=== PATIENT | female | born 1940 | race Caucasian/White ===

== ENCOUNTER → 2016-12-25 | Outpatient (CLI) | payer OTHER ==
[~2016-12-25] MED LIST: CRDCD180 PO; CZR50 PO; DABI150C PO; DILT-113 PO; FRS/40 PO; GLC500 PO; INSDGIPEN SC; INSU1.2I SC; LEVO50TA6 PO; LEVO50TA60 PO; LNX125 PO; LPT40 PO; MCRB100 PO; MCRK20 PO; METF-384 PO; METO1TAB69 PO; METO2.5T PO; MGNO400 PO; NITR100C41 PO; PRAV80TA2 PO; PRD10 PO; TPRSR50 PO
--- NOTE | 2016-12-26 12:25 | MAMMOGRAPHY REPORT ---
BILATERAL DIGITAL SCREENING MAMMOGRAM WITH CAD: 12/25/2016 CLINICAL HISTORY: Routine screening. Patient has no complaints. TECHNIQUE: Bilateral CC and MLO views were obtained. Current study was also evaluated with a Compu ter Aided Detection (CAD) system. COMPARISON: Comparison is made to exams dated: 12/22/2015 mammogram, 12/21/2014 mammogram, 12/18/2013 mammogram, 11/13/2012 mammogram, 11/10/2011 mammogram, and 10/13/2010 mammogram - [facility]. BREAST COMPOSITION: There are scattered areas of fibroglandular density in both breasts. FINDINGS: There is a stable intramammary lymph node and benign coarse calcification within the right breast. Mild vascular calcification bilaterally. Benign rim calcifications within left breast. N o suspicious mass, architectural distortion or cluster of microcalcifications is seen. IMPRESSION: ACR BI-RADS CATEGORY 1: NEGATIVE There is no mammographic evidence of malignancy. A 1 year screening mammogram is recommended. The p atient will receive written notification of the results. Approximately 10% of breast cancers are not detected with mammography. A negative mammographic repor t should not delay biopsy if a clinically suggestive mass is present. Mariangel Lopez M.D. ay/:12/25/2016 16:26:49 Eye Dropper Assembler: Polly LANDEROS)(Howie)([place]), [facility] letter sent: Normal 1/2 BI-RADS Code: ACR BI-RADS Category 1: Negative
== END | disposition home or self-care (01) ==
LOC: C.MAMM 15:43
PROVIDERS: ATTEND Family Medicine
DX: Z12.31 Encounter for screening mammogram for malignant neoplasm of breast (principal)

== ENCOUNTER → 2017-01-17 | Outpatient (CLI) | payer OTHER ==
[2017-01-17 14:43] LABS: HEMATOCRIT 39.9 % (37-47); MEAN CELL VOLUME 88.1 fL (80-100); MEAN CORPUSCULAR HEMOGLOBIN 29.6 pg (25-34); MEAN CORPUSCULAR HGB CONC 33.6 g/dl (32-36); MEAN PLATELET VOLUME 10.9 fL (7.4-10.4); PLATELET COUNT 287 K/uL (130-400); RED BLOOD COUNT 4.53 M/uL (4.2-5.4); WHITE BLOOD COUNT 11.62 K/uL (4.8-10.8)
[2017-01-17 15:16] LABS: ALT/SGPT 23 U/L (12-78); AST/SGOT 14 U/L (15-37); BLOOD UREA NITROGEN 42 mg/dl (7-18); CARBON DIOXIDE 27 mmol/L (21-32); CHLORIDE 101 mmol/L (98-107); GLUCOSE 187 mg/dl (70-99); SODIUM 138 mmol/L (136-145)
== END | disposition home or self-care (01) ==
LOC: C.LAB1850 13:38
PROVIDERS: ATTEND Internal Medicine Cardiovascular Disease
DX: E78.00 Pure hypercholesterolemia, unspecified (principal); I10 Essential (primary) hypertension

== ENCOUNTER → 2017-01-29 | Outpatient (CLI) | payer OTHER ==
[~2017-01-29] MED LIST changes: +METO100T44 PO; -METO1TAB69 PO; -NITR100C41 PO; +NITR100C43 PO
[2017-01-29 12:32] LABS: ESTIMATED AVERAGE GLUCOSE 148 mg/dl; HA1C FLAG Normal (Normal)
[2017-01-29 12:33] LABS: BLOOD UREA NITROGEN 23 mg/dl (7-18); BUN/CREATININE RATIO 24.9 (10-20); CALCIUM 10.1 mg/dl (8.5-10.1); CARBON DIOXIDE 32 mmol/L (21-32); CHLORIDE 105 mmol/L (98-107); CREATININE 0.94 mg/dl (0.60-1.20); GLUCOSE 56 mg/dl (70-99); POTASSIUM 4.1 mmol/L (3.5-5.1); SODIUM 141 mmol/L (136-145)
[2017-01-29 12:37] LABS: ALKALINE PHOSPHATASE 104 U/L (45-117); ALT/SGPT 29 U/L (12-78); AST/SGOT 14 U/L (15-37); CHOLESTEROL 128 mg/dl (0-200); CHOLESTEROL/HDL RATIO 2.1; HDL CHOLESTEROL 60 mg/dl; LDL CHOLESTEROL CALCULATED 48 mg/dl; TRIGLYCERIDES 100 mg/dl (0-150); VERY LOW DENSITY LIPOPROT CALC 20 mg/dl
== END | disposition home or self-care (01) ==
LOC: C.LAB1850 10:16
PROVIDERS: ATTEND Family Medicine
DX: I11.0 Hypertensive heart disease with heart failure (principal); E78.00 Pure hypercholesterolemia, unspecified; E03.9 Hypothyroidism, unspecified; I48.91 Unspecified atrial fibrillation; E11.8 Type 2 diabetes mellitus with unspecified complications; I50.32 Chronic diastolic (congestive) heart failure

== ENCOUNTER → 2017-02-08 | Outpatient (CLI) | payer OTHER ==
[2017-02-08 15:32] LABS: BLOOD UREA NITROGEN 34 mg/dl (7-18); BUN/CREATININE RATIO 22.7 (10-20); CARBON DIOXIDE 31 mmol/L (21-32); CHLORIDE 102 mmol/L (98-107); GLUCOSE 123 mg/dl (70-99); POTASSIUM 4.7 mmol/L (3.5-5.1); SODIUM 140 mmol/L (136-145)
== END ==
LOC: C.LAB1850 13:10
PROVIDERS: ATTEND Internal Medicine Cardiovascular Disease
DX: I50.32 Chronic diastolic (congestive) heart failure (principal)

== ENCOUNTER → 2017-02-11 | Outpatient (CLI) | payer OTHER ==
[2017-02-11 12:50] LABS: BLOOD UREA NITROGEN 46 mg/dl (7-18); BUN/CREATININE RATIO 35.7 (10-20); CALCIUM 9.8 mg/dl (8.5-10.1); CARBON DIOXIDE 29 mmol/L (21-32); CHLORIDE 103 mmol/L (98-107); GLUCOSE 192 mg/dl (70-99); POTASSIUM 4.9 mmol/L (3.5-5.1); SODIUM 140 mmol/L (136-145)
== END | disposition home or self-care (01) ==
LOC: C.LAB 11:46
PROVIDERS: ATTEND Internal Medicine Cardiovascular Disease
DX: I50.32 Chronic diastolic (congestive) heart failure (principal)

== ENCOUNTER → 2017-02-12 | Outpatient (CLI) | payer OTHER ==
--- NOTE | 2017-02-12 16:49 | DIAGNOSTIC IMAGING REPORT ---
CHEST 2 VIEWS ROUTINE CLINICAL HISTORY: DYSPNEA ON EXERTION COMPARISON STUDY: 08/18/2016 FINDINGS: The heart is enlarged. There is mild central vascular congestion without evidence of overt edema. There is no focal pulmonary consolidation. There are mild atelectatic changes at the lung bases. [ IMPRESSION: 1. Mild cardiomegaly 2. Mild central vascular congestion without evidence of overt edema 3. No evidence of focal pulmonary consolidation Electronically signed by: Aj Rojo M.D. 02/12/2017 4:47 PM Dictated Date/Time: 02/12/2017 4:45 PM
== END | disposition home or self-care (01) ==
LOC: C.RAD1850 16:29
PROVIDERS: ATTEND Physician Assistant
DX: R06.09 Other forms of dyspnea (principal)

== ENCOUNTER → 2017-02-26 | Outpatient (CLI) | payer OTHER ==
[~2017-02-26] MED LIST changes: -METO2.5T PO
[2017-02-26 12:14] LABS: HEMATOCRIT 39.3 % (37-47); MEAN CELL VOLUME 90.6 fL (80-100); MEAN CORPUSCULAR HEMOGLOBIN 29.7 pg (25-34); MEAN CORPUSCULAR HGB CONC 32.8 g/dl (32-36); MEAN PLATELET VOLUME 9.8 fL (7.4-10.4); PLATELET COUNT 360 K/uL (130-400); RED BLOOD COUNT 4.34 M/uL (4.2-5.4)
[2017-02-26 12:25] LABS: INR 1.1 (0.9-1.1); PROTHROMBIN TIME (PATIENT) 12.2 SECONDS (9.0-12.0)
[2017-02-26 12:55] LABS: BLOOD UREA NITROGEN 31 mg/dl (7-18); BUN/CREATININE RATIO 27.9 (10-20); CARBON DIOXIDE 26 mmol/L (21-32); CHLORIDE 104 mmol/L (98-107); GLUCOSE 172 mg/dl (70-99); POTASSIUM 4.5 mmol/L (3.5-5.1); SODIUM 139 mmol/L (136-145)
== END | disposition home or self-care (01) ==
LOC: C.LAB1850 11:19
PROVIDERS: ATTEND Internal Medicine Cardiovascular Disease
DX: I50.32 Chronic diastolic (congestive) heart failure (principal); R94.39 Abnormal result of other cardiovascular function study

== ENCOUNTER → 2017-03-01 | Day surgery (SDC) | payer OTHER ==
[~2017-03-01] VITALS: Ht 162.6 cm; Wt 79.0 kg
[~2017-03-01] MED LIST changes: +ACETAMINOPHEN 325 MG TAB PO PRN; +ADENOSINE IV SOLN 3 MG/ML 20 ML VIAL ONE; -CRDCD180 PO; +FENTANYL CITRATE INJ 50 MCG/1 ML 2 ML VIAL ONE; -GLC500 PO; +HEPARIN SOD (PORCINE) 1000 UNIT/ML 10 ML VIAL ONE; -INSDGIPEN SC; -MCRB100 PO; +MIDAZOLAM HCL 1 MG/ML 2ML VIAL ONE; +NITROGLYCERIN/D5W 100MCG/ML 20ML SYR ONE; +NiCARDipine HCL INJ 2.5 MG/ML 10 ML AMP ONE; +ONDANSETRON INJ 2 MG/ML 2 ML VIAL IV PRN; +SODIUM CHLORIDE 0.9% 1000ML 1,000 ML IV SCH; -TPRSR50 PO
[2017-03-01 07:42] VITALS: BP 136/81; PULSE 75; TEMP 36.7; O2SAT 92; Ht 162.6 cm; Wt 79.0 kg
--- NOTE | 2017-03-01 11:30 | History & Physical Bridge Note ---
H&P Re-Evaluation Bridge Note: I have examined the patient, reviewed the History & Physical and in the interval since the performance of the History & Physical I have noted the following changes of clinical significance: No changes noted
--- NOTE | 2017-03-01 11:31 | Procedure Note ---
Pre-Mod Sedation Assessment General Date of Moderate Sedation: March 01, 2017. Vital Signs: Vital Signs Past 12 Hours Date Time Temp Pulse Resp B/P Pulse Ox O2 Delivery O2 Flow Rate FiO2 03/01/17 07:42 36.7 75 16 136/81 92 Room Air Review Cardiovascular: + irregularly irregular Abdomen: non tender, soft Lungs: lungs clear Pre-Sedation Airway Assessment Oral Cavity: Dentures Short Thick Neck: No Hx of Sleep Apnea: No Smoking Status: Never Smoker Procedure Planning Contraindications-for Mod Sed: None Yes Notes The planned sedation has been discussed with the patient and consent obtained. I have identified the patient, determined the appropriateness of sedation and have assessed the patient immediately prior to the procedure. All medicine(s) and interventions are by my order.
[2017-03-01 12:11] LABS: ISTAT ARTERIAL BLOOD GAS HCO3 24 meq/L (19-24); ISTAT ARTERIAL BLOOD GAS PCO2 40 mmHg (35-46); ISTAT ARTERIAL BLOOD GAS PO2 < 32 mmHg (80-95); ISTAT CARBON DIOXIDE 26 mEq/l (24-31)
[2017-03-01 12:11] LABS: ISTAT ARTERIAL BLOOD GAS HCO3 24 meq/L (19-24); ISTAT ARTERIAL BLOOD GAS PCO2 34 mmHg (35-46); ISTAT ARTERIAL BLOOD GAS PO2 48 mmHg (80-95); ISTAT ARTERIAL BLOOD GAS pH 7.46 (7.35-7.45); ISTAT CARBON DIOXIDE 25 mEq/l (24-31)
[2017-03-01 12:11] LABS: ISTAT ARTERIAL BLOOD GAS HCO3 25 meq/L (19-24); ISTAT ARTERIAL BLOOD GAS PCO2 40 mmHg (35-46); ISTAT ARTERIAL BLOOD GAS PO2 < 32 mmHg (80-95); ISTAT ARTERIAL BLOOD GAS pH 7.41 (7.35-7.45); ISTAT CARBON DIOXIDE 26 mEq/l (24-31)
--- NOTE | 2017-03-01 12:32 | Procedure Note ---
Post-Mod Sedation Assessment General Date of Moderate Sedation March 01, 2017. Vital Signs: Vital Signs Past 12 Hours Date Time Temp Pulse Resp B/P Pulse Ox O2 Delivery O2 Flow Rate FiO2 03/01/17 07:42 36.7 75 16 136/81 92 Room Air Review - Discharge Criteria Vital Signs Stable: Yes Alert/Oriented/Conversant: Yes Returned to Baseline Mental St: Yes Nausea Absent/Minimal: Yes Pain/Discomfort/Absent/Minimal: Yes Normal/Baseline Respirations: Yes Active Bleeding?: No
--- NOTE | 2017-03-01 12:45 | Cardiac Catheterization ---
Procedure Note Procedure Date March 01, 2017. Pre-Procedure Diagnosis Cardiomyopathy, Cardiothoracic Symptom (Dyspnea on exertion) AUC Score 7 Post-Procedure Diagnosis Moderate CAD, Elevated Intracardiac Pressures (Mild pulmonary hypertension) Procedure(s) Performed Coronary Angiography, Left Heart Cath, Right Heart Cath, LV Angiography Store Leader Dr. Turner Business Services Intern(s) Glunt Estimated Blood Loss < 25 ml Medication(s) Fentanyl, Heparin, Nicardipine, Versed, Lidocaine 1% Summary of Findings Coronary angiography: 1. Left main coronary artery: No angiographic evidence of CAD. 2. Left anterior descending: The LAD does not reach the apex. Mid LAD 20%. Large D1 proximal 20%. Very small caliber D2 and D3 without significant CAD. 3. Circumflex: The circumflex is large and codominant. Mid circumflex 20%. Very large caliber OM1 proximal 20%. OM2, posterior lateral branch, and large circumflex PDA without significant CAD. 4. Right coronary artery: The RCA is large and codominant. The mid RCA is diffusely diseased, 50-60%. RCA PDA and small posterior lateral branch without significant CAD. Left heart catheterization: 1. Left ventriculography was performed in the YOUNGER projection. Wall motion appeared normal. Low-normal LV systolic function with visualized EF 50-55%. 2. Left atrium appears significantly dilated. 3. 2+ mitral regurgitation. 4. Normal LVEDP; 10 mmHg. 5. No significant aortic stenosis. Right heart catheterization: 1. Mild pulmonary hypertension. PA pressure 43/17 with a mean of 26 mmHg. 2. Pulmonary capillary wedge pressure V-wave 27; mean 16 mmHg. 3. Right ventricular pressure 43/0 with RV EDP 7 mmHg. 4. Right atrial pressure A-wave 8; V-wave 7; mean 6 mmHg. 5. PVR 2.56 Wood units. 6. Cardiac output via thermodilution was 3.9 L/min, with a cardiac index of 2.1 L/min/m2. Sedation start: 11:35 a.m. Sedation stop: 12:10 p.m. Impression: 1. Moderate mid RCA CAD. 2. Mild nonobstructive CAD involving the LAD and circumflex systems. 3. No aortic stenosis. 4. Mitral regurgitation 2+. 4. Low normal LV systolic function visually. 5. Mild pulmonary hypertension with mildly elevated pulmonary capillary wedge pressure and prominent V wave. 6. Elevated PVR; 2.56 Wood units. Plan: 1. Medical therapy for nonobstructive CAD. FFR was considered, however, FFR was unavailable due to equipment technical difficulties. Visually, mid RCA did not appear to have severely stenotic lesions, and myocardial perfusion study did not suggest RCA territory ischemia. 2. Consider pulmonary evaluation. Hemodynamics Rest Ao: 122/50 Final Ao: 114/46 LV: 121/3/10 Recommendations Medical therapy and/or Counseling Specimens None Radiation Exposure (mGy) 1149 mGy. Fluoro time 6.1 min. 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 Holding/Recovery ACC Data Cardiac Status Clinical evaluation leading to the procedure CAD Presntation: No Sxs, no angina Anginal Classification: No symptoms Heart Failure: NYHA Class: CCS III Cardiogenic Shock w/in 24Hrs: No Cardiac Arrest w/in 24Hrs: No Imaging studies past 6 months: Yes Stress studies past 6 months: Yes Standard Exercise Stress Test: No Stress Echocardiogram: No Stress Testing w/SPECT MPI: Yes - Negative Cardiac CTA: No Coronary Anatomy Dominant: Co-dominant Left Main (% Stenosis): Normal LAD (% Stenosis): Mid (20%) D1 (% Stenosis): Proximal (20%) D2 (% Stenosis): Normal D3 (% Stenosis): Normal Circumflex (% Stenosis): Mid (20%) OM1 (% Stenosis): Proximal (20%) OM2 (% Stenosis): Normal L PL1 (% Stenosis): Normal L PDA (% Stenosis): Normal RCA (% Stenosis): Mid (long diffuse 50%) R PDA (% Stenosis): Normal R PL1 (% Stenosis): Normal Left Ventricular Angiography EF (%): 55% Wall Motion: Inferior (Normal), Apical (Normal), Anterior (Normal) Mitral Regurgitation: 2+ Diagnostic Physician's Name: Fernando Turner MD Closure Device Percutaneous Entry Location: Radial Closure Device: Radial Band Recommendations: Medical therapy and/or Counseling
--- NOTE | 2017-03-01 13:12 | Discharge Instructions ---
Discharge Instructions Date of Service March 01, 2017. Visit Reason for Visit: Cardiac catheterization to evaluate shortness of breath. Discharge Discharge Diagnosis / Problem: Non-obstructive coronary artery disease. Mild pulmonary hypertension. Discharge Goals Goal(s): Diagnostic testing Medications Restart Stopped Medication(s): Resume pradaxa tonight. Resume metformin in 2 days. Activity Recommendations Activity Limitations: per Instructions/Follow-up section Anesthesia . Post Anesthesia Instructions: If you have had General Anesthesia or IV Sedation: * Do not drive today. * Resume driving when surgeon permits. * Do not make important decisions or sign legal documents today. * Call surgeon for: 1. Temperature elevations greater than 101 degrees F. 2. Uncontrollable pain. 3. Excessive bleeding. 4. Persistent nausea and vomiting. 5. Medication intolerance (nausea, vomiting or rash). * For nausea and vomiting use only clear liquids such as: tea, soda, bouillon until nausea subsides, then gradually increase diet as tolerated. * If you have any concerns or questions, call your surgeon's office. If physician is unavailable and it is an emergency, call 911 or go to the nearest emergency room. . Instructions / Follow-Up Instructions / Follow-Up 1. Follow up with Dr. Turner as scheduled. 2. Pulmonary consultation requested. ACTIVITY RECOMMENDATIONS: Excess manipulation of the wrist should be avoided for the next 24-48 hours. * No lifting over 2 pounds (approximately a 1/2 gallon of milk) with the utilized arm for 24 hours. * No strenuous activity such as bowling or tennis for 3 days. * Keep the site of the procedure covered with a bandage for 24 hours. *You may shower the day after the procedure. Do not take a tub bath or submerge the puncture site in water for the next 3 days. *Do not operate any motorized equipment for 3 days. SPECIAL CARE INSTRUCTIONS: The site may be slightly bruised and sore following your procedure. Should any of the following occur, contact the DrSuzie who performed your procedure. 1. Redness/inflammation, swelling, chills, or fever, or colored drainage at procedure site within 3-7 days after your procedure. 2. Coldness, discoloration, ongoing numbness, severe pain, or swelling. Expect mild tingling of hand and tenderness at the puncture site for up to three days. If this persists beyond three days, or other symptoms develop, notify the Dr. who performed your procedure. BLEEDING: If the procedure site on your wrist begins to bleed, do not panic 1. Place 1 or 2 fingers firmly just slightly above the insertion site to stop the bleeding. You may be able to feel your pulse as you hold pressure. 2. Lift your finger after 5 minutes to see if the bleeding has stopped. 3. Once the bleeding has stopped, gently wipe the wrist area clean with a bandage. * If the bleeding from your wrist does not stop after 10 minutes, or if there is a large amount of bleeding or spurting, call 911 (do not drive yourself to the hospital). SKIN IRRITATION: * You may experience some redness and/or swelling in the area where radiation was administered. If any skin irritation occurs, please contact your family physician. FOLLOW UP VISIT: Keep any scheduled doctor appointments. Diet Recommendations Recommended Home Diet: low sodium, diabetes diet Procedures Procedures Performed: 1. Right and left heart catheterization with coronary angiography. Pending Studies Studies pending at discharge: no Medical Emergencies . Who to Call and When: Medical Emergencies: If at any time you feel your situation is an emergency, please call 911 immediately. . Non-Emergent Contact Non-Emergency issues call your: Primary Care Provider, Inserter Promotional Item . . "Provider Documentation" section prepared by Fernando Manzo. .
[2017-03-01 15:30] VITALS: BP 147/70; PULSE 68; O2SAT 96
== END | disposition home or self-care (01) ==
LOC: C.CATH 06:20
PROVIDERS: ATTEND Internal Medicine Cardiovascular Disease
DX: I25.10 Atherosclerotic heart disease of native coronary artery without angina pectoris (principal); I27.2 Other secondary pulmonary hypertension; I42.9 Cardiomyopathy, unspecified; I34.0 Nonrheumatic mitral (valve) insufficiency; I50.23 Acute on chronic systolic (congestive) heart failure; I48.91 Unspecified atrial fibrillation; I44.7 Left bundle-branch block, unspecified; I11.0 Hypertensive heart disease with heart failure; E11.311 Type 2 diabetes mellitus with unspecified diabetic retinopathy with macular edema; E11.42 Type 2 diabetes mellitus with diabetic polyneuropathy; E11.3299 Type 2 diabetes mellitus with mild nonproliferative diabetic retinopathy without macular edema, unspecified eye; E78.00 Pure hypercholesterolemia, unspecified; E03.9 Hypothyroidism, unspecified; I07.1 Rheumatic tricuspid insufficiency; Z79.01 Long term (current) use of anticoagulants; Z79.899 Other long term (current) drug therapy; Z79.84 Long term (current) use of oral hypoglycemic drugs

== ENCOUNTER → 2017-04-20 | Outpatient (CLI) | payer OTHER ==
[~2017-04-20] MED LIST changes: -ACETAMINOPHEN 325 MG TAB PO PRN; -ADENOSINE IV SOLN 3 MG/ML 20 ML VIAL ONE; -FENTANYL CITRATE INJ 50 MCG/1 ML 2 ML VIAL ONE; -HEPARIN SOD (PORCINE) 1000 UNIT/ML 10 ML VIAL ONE; -MIDAZOLAM HCL 1 MG/ML 2ML VIAL ONE; -NITROGLYCERIN/D5W 100MCG/ML 20ML SYR ONE; -NiCARDipine HCL INJ 2.5 MG/ML 10 ML AMP ONE; -ONDANSETRON INJ 2 MG/ML 2 ML VIAL IV PRN; -SODIUM CHLORIDE 0.9% 1000ML 1,000 ML IV SCH
[2017-04-20 12:42] LABS: BLOOD UREA NITROGEN 44 mg/dl (7-18); BUN/CREATININE RATIO 29.5 (10-20); CALCIUM 10.1 mg/dl (8.5-10.1); CARBON DIOXIDE 29 mmol/L (21-32); CHLORIDE 100 mmol/L (98-107); GLUCOSE 233 mg/dl (70-99); POTASSIUM 4.2 mmol/L (3.5-5.1); SODIUM 138 mmol/L (136-145)
[2017-04-20 12:52] LABS: FERRITIN 32.9 ng/ml (8.0-388.0)
== END | disposition home or self-care (01) ==
LOC: C.LAB1850 11:10
PROVIDERS: ATTEND Internal Medicine Cardiovascular Disease
DX: R06.02 Shortness of breath (principal); I42.9 Cardiomyopathy, unspecified; I50.32 Chronic diastolic (congestive) heart failure

== ENCOUNTER 2017-04-26 19:31 | Inpatient (IN) | payer OTHER ==
[~2017-04-26] VITALS: Ht 165.1 cm; Wt 76.9 kg
[~2017-04-26 19:31] MED LIST changes: -CZR50 PO; -LEVO50TA6 PO; -LNX125 PO; -MCRK20 PO; -METO100T44 PO; +METO1TAB69 PO; -MGNO400 PO; +NITR100C41 PO; -NITR100C43 PO; -PRAV80TA2 PO; -PRD10 PO
[2017-04-26] MEDS ORDERED: ALBUTEROL 0.083% NEBU SOLN 3 ML VIAL INH STA (19:54)
[2017-04-26] MEDS ORDERED: SODIUM CHLORIDE 0.9% 1000ML 1,000 ML IV STA (19:54)
[2017-04-26 20:21] LABS: BASO % 0.1 %; BASO ABS # 0.02 K/uL (0-0.2); COMPLETE YES; EOS % 0.1 %; IG% 0.5 %; LYMPH ABS # 1.16 K/uL (1.2-3.4); MEAN CORPUSCULAR HEMOGLOBIN 30.4 pg (25-34); MEAN CORPUSCULAR HGB CONC 34.2 g/dl (32-36); MONO % 3.8 %; NEUT % 88.5 %; PLATELET COUNT 249 K/uL (130-400); RED BLOOD COUNT 4.27 M/uL (4.2-5.4); WHITE BLOOD COUNT 16.49 K/uL (4.8-10.8)
[2017-04-26 20:26] LABS: ISTAT HEMOGLOBIN 13.6 g/dl (12.0-16.0); ISTAT IONIZED CALCIUM 1.29 mmol/l (1.12-1.32)
[2017-04-26] MEDS ORDERED: PRAV80TA2 PO (20:29)
[2017-04-26] MEDS ORDERED: CZR50 PO (20:29)
[2017-04-26] MEDS ORDERED: LEVO50TA6 PO (20:29)
[2017-04-26] MEDS ORDERED: OPTIRAY 320 IV PRN (20:30)
--- NOTE | 2017-04-26 20:30 | DIAGNOSTIC IMAGING REPORT ---
CHEST ONE VIEW PORTABLE CLINICAL HISTORY: Dyspnea. Respiratory distress. COMPARISON STUDY: Chest radiograph February 12, 2017. FINDINGS: There is no pneumothorax. No pleural effusion is identified. Lung volumes are diminished. There has been interval development of bilateral perihilar opacities with diffuse interstitial thickening. A right suprahilar opacity is noted. 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 IMPRESSION: Interval development of bilateral perihilar opacities and interstitial thickening highly suggestive of pulmonary edema. Pneumonia could appear similar although is considered less likely. Possible right pleural effusion. Electronically signed by: Rick King M.D. 04/26/2017 8:29 PM Dictated Date/Time: 04/26/2017 8:27 PM
[2017-04-26 20:32] LABS: INR 1.2 (0.9-1.1); PARTIAL THROMBOPLASTIN RATIO 1.6; PROTHROMBIN TIME (PATIENT) 13.1 SECONDS (9.0-12.0)
[2017-04-26 20:37] LABS: VEN BLD GAS O2 SATURATION 65.3 %; VEN BLOOD GAS BASE EXCESS 0.9 mmol/L
[2017-04-26 20:39] LABS: ALT/SGPT 21 U/L (12-78); BLOOD UREA NITROGEN 24 mg/dl (7-18); CALCIUM 10.6 mg/dl (8.5-10.1); CARBON DIOXIDE 24 mmol/L (21-32); CHLORIDE 102 mmol/L (98-107); GLUCOSE 195 mg/dl (70-99); SODIUM 136 mmol/L (136-145)
[2017-04-26 20:44] LABS: ALB/GLOB RATIO 0.8 (0.9-2); ALKALINE PHOSPHATASE 106 U/L (45-117); AST/SGOT 11 U/L (15-37)
[2017-04-26 21:00] VITALS: PULSE 117; O2SAT 95
--- NOTE | 2017-04-26 21:07 | DIAGNOSTIC IMAGING REPORT ---
CT ANGIOGRAPHY OF THE CHEST, PULMONARY EMBOLUS PROTOCOL CLINICAL HISTORY: Respiratory distress. Dyspnea. COMPARISON STUDY: Chest radiographs February 12, 2017 and April 26, 2017. TECHNIQUE: Following IV administration of 93 mL of Optiray-320, helical axial images of the chest were obtained utilizing the pulmonary embolus protocol. Maximal intensity projections and sagittal and coronal reformats were viewed on an independent 3D workstation. IV contrast was administered without complication. CT DOSE: 366.72 mGy.cm FINDINGS: No pulmonary emboli are identified although the segmental and subsegmental pulmonary arteries are suboptimally assessed due to respiratory motion. The heart is moderately enlarged. There is no pericardial effusion. An AP window lymph node measures approximately 1.3 cm in short axis diameter. A precarinal lymph node measures approximately 2.4 cm in short axis diameter. There are trace bilateral pleural effusion. There is no pneumothorax. Diffuse interlobular septal thickening is noted with multifocal bilateral airspace opacities, including a 4.9 cm focus of consolidation within the right upper lobe. There is left lower lobe consolidation as well. Lungs are suboptimally assessed due to respiratory motion. No central obstructing mass is identified. Bony thorax and upper abdomen are unremarkable with exception of reflux of contrast into the IVC and hepatic veins. Spleen is top normal for size. There is moderate atherosclerotic calcification. IMPRESSION: 1. No pulmonary emboli identified although segmental and subsegmental pulmonary arteries are suboptimally assessed due to respiratory motion. 2. Diffuse interlobular septal thickening consistent with interstitial pulmonary edema. Multifocal bilateral airspace opacities, including a 4.9 cm focus of right upper lobe consolidation which could reflect superimposed pneumonia or alveolar edema. A chest CT in one month to ensure resolution is recommended. 3. Mild to moderate mediastinal and hilar lymphadenopathy which is nonspecific although may be reactive. This can be assessed on follow-up chest CT. 4. Trace bilateral pleural effusions. 5. Moderate cardiomegaly with reflux of contrast into the IVC and hepatic veins which could indicate right heart dysfunction. Electronically signed by: Rick King M.D. 04/26/2017 9:06 PM Dictated Date/Time: 04/26/2017 8:55 PM
[2017-04-26] MEDS ORDERED: GLUCAGON FOR INJ 1 MG VIAL SQ PRN (22:45)
[2017-04-26] MEDS ORDERED: ONDANSETRON INJ 2 MG/ML 2 ML VIAL IV PRN (22:45)
[2017-04-26] MEDS ORDERED: NITROGLYCERIN 0.4 MG SL PER TAB CHARGE SL PRN (22:45)
[2017-04-26] MEDS ORDERED: GLUCOSE 40% GEL 15 GM TUBE PO PRN (22:45)
[2017-04-26] MEDS ORDERED: GLUCOSE 10 TABS/TUBE PO PRN (22:45)
[2017-04-26] MEDS ORDERED: DEXTROSE 50% 50 ML SYR IV PRN (22:45)
[2017-04-26] MEDS ORDERED: VANCOMYCIN CONSULT ACTIVE PRN (23:30)
[2017-04-26] MEDS ORDERED: VANCOMYCIN INJ 2,050 MG in SODIUM CHLORIDE 0.9% 500ML 500 ML IV SCH (23:45)
--- NOTE | 2017-04-26 23:45 | EMERGENCY ROOM VISIT NOTE ---
History Report prepared by Josh: Alison Mccann Under the Supervision of: Dr. Familia Polanco D.O. First contact with patient: 19:42 Chief Complaint: RESPIRATORY PROBLEMS Stated Complaint: CANT BREATHE History of Present Illness The patient is a 76 year old female who presents to the Emergency Room with complaints of constant respiratory problems beginning last night. The patient states that she has a history of pneumonia and her symptoms today feel similar to her previous pneumonia. She reports that last night she began to feel short of breath and developed a non-productive cough. She complains of diarrhea today , difficulty sleeping last night, and wheezing. She denies any chest pain, nausea, vomiting, new leg swelling, history of asthma, COPD, cancer, blood clots. The patient notes that she is on Pradaxa and has a history of atrial fibrillation. Source of History: patient Onset: last night Position: other (respiratory) Quality: other (SOB) Timing: constant Associated Symptoms: + cough, + SOB, + diarrhea, No chest pain, No nausea, No vomiting Note: Patient complains of wheezing. She denies any new leg swelling. Review of Systems See HPI for pertinent positives & negatives. A total of 10 systems reviewed and were otherwise negative. Past Medical & Surgical Medical Problems: (1) Acute respiratory failure with hypoxia (2) Afib (3) Allergic reaction (4) Allergic reaction (5) Atrial fibrillation (6) blood clot in eye (7) Chronic anticoagulation (8) Diabetes (9) Digoxin toxicity (10) Dyslipidemia (11) Heart disease (12) HTN (hypertension) (13) Hypothyroidism (14) Kidney stones (15) Rash (16) Rash Surgical Problems: (1) History of appendectomy (2) History of cholecystectomy (3) History of hysterectomy Family History Cancer Diabetes mellitus Gallbladder disease Heart disease Hypertension Kidney disease Kidney stones Lung disease Social History Smoking Status: Never Smoker Alcohol Use: none Marital Status: Housing Status: lives with significant other Occupation Status: retired Current/Historical Medications Scheduled Dabigatran Etexilate Mesylate (Pradaxa), 150 MG PO BID Diltiazem Hcl Ext Rel (Tiazac), 180 MG PO BID Furosemide (Lasix), 40 MG PO DAILY Insulin Glargine (Toujeo Solostar), 32 UNITS SC BID Levothyroxine Sodium (Levothyroxine Sodium), 50 MCG PO DAILYBB Losartan Potassium (Losartan Potassium), 50 MG PO BID Metformin Hcl (Glucophage), 1,000 MG PO BID Metoprolol Succ (Toprol Xl) (Toprol-Xl ), 100 MG PO BID Nitrofurantoin Macrocrystal (Nitrofurantoin), 1 TAB PO BID Pravastatin Sodium (Pravastatin Sodium), 80 MG PO HS Allergies Coded Allergies: Penicillins (Verified Allergy, Severe, RASH,SWELLING, 01/08/14) Physical Exam Vital Signs Date Time Temp Pulse Resp B/P (MAP) Pulse Ox O2 Delivery O2 Flow Rate FiO2 04/26/17 22:32 101 18 137/84 96 BiPAP 60 04/26/17 21:00 117 95 60 04/26/17 20:50 109 20 139/91 90 Non-Rebreather 10.0 04/26/17 20:27 115 22 93 Nebulizer 04/26/17 20:00 91 Non-Rebreather 15.0 04/26/17 19:51 72 Room Air 04/26/17 19:51 72 Room Air 04/26/17 19:43 105 04/26/17 19:33 37.2 121 24 130/73 74 Room Air Physical Exam GENERAL: sitting up in bed, ill appearing, mild distress, on nasal cannula EYE EXAM: normal conjunctiva OROPHARYNX: no exudate, no erythema, lips, buccal mucosa, and tongue normal and mucous membranes are moist NECK: supple, no nuchal rigidity, no adenopathy, non-tender LUNGS: Crackles at bilateral bases. Normal chest wall mechanics HEART: tachycardic, no murmurs, S1 normal and S2 normal ABDOMEN: abdomen soft, non-tender, normo-active bowel sounds, no masses, no rebound or guarding. BACK: Back is symmetrical on inspection and there is no deformity, no midline tenderness, no CVA tenderness. SKIN: no rashes and no bruising UPPER EXTREMITIES: upper extremities are grossly normal. LOWER EXTREMITIES: Bilateral pitting edema. NEURO EXAM: Normal sensorium, cranial nerves II-XII grossly intact, normal speech, no gross weakness of arms, no gross weakness of legs. Medical Decision & Procedures ER Provider Diagnostic Interpretation: Radiology results as stated below per my review and the radiologist's interpretation: CT ANGIOGRAPHY OF THE CHEST, PULMONARY EMBOLUS PROTOCOL FINDINGS: No pulmonary emboli are identified although the segmental and subsegmental pulmonary arteries are suboptimally assessed due to respiratory motion. The heart is moderately enlarged. There is no pericardial effusion. An AP window lymph node measures approximately 1.3 cm in short axis diameter. A precarinal lymph node measures approximately 2.4 cm in short axis diameter. There are trace bilateral pleural effusion. There is no pneumothorax. Diffuse interlobular septal thickening is noted with multifocal bilateral airspace opacities, including a 4.9 cm focus of consolidation within the right upper lobe. There is left lower lobe consolidation as well. Lungs are suboptimally assessed due to respiratory motion. No central obstructing mass is identified. Bony thorax and upper abdomen are unremarkable with exception of reflux of contrast into the IVC and hepatic veins. Spleen is top normal for size. There is moderate atherosclerotic calcification. IMPRESSION: 1. No pulmonary emboli identified although segmental and subsegmental pulmonary arteries are suboptimally assessed due to respiratory motion. 2. Diffuse interlobular septal thickening consistent with interstitial pulmonary edema. Multifocal bilateral airspace opacities, including a 4.9 cm focus of right upper lobe consolidation which could reflect superimposed pneumonia or alveolar edema. A chest CT in one month to ensure resolution is recommended. 3. Mild to moderate mediastinal and hilar lymphadenopathy which is nonspecific although may be reactive. This can be assessed on follow-up chest CT. 4. Trace bilateral pleural effusions. 5. Moderate cardiomegaly with reflux of contrast into the IVC and hepatic veins which could indicate right heart dysfunction. Electronically signed by: Rick King M.D. 04/26/2017 9:06 PM Dictated Date/Time: 04/26/2017 8:55 PM CHEST ONE VIEW PORTABLE FINDINGS: There is no pneumothorax. No pleural effusion is identified. Lung volumes are diminished. There has been interval development of bilateral perihilar opacities with diffuse interstitial thickening. A right suprahilar opacity is noted. 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 IMPRESSION: Interval development of bilateral perihilar opacities and interstitial thickening highly suggestive of pulmonary edema. Pneumonia could appear similar although is considered less likely. Possible right pleural effusion. Electronically signed by: Rick King M.D. 04/26/2017 8:29 PM Dictated Date/Time: 04/26/2017 8:27 PM Laboratory Results 04/26/17 20:00 Red Blood Count 4.27, Mean Corpuscular Volume 89.0, Mean Corpuscular Hemoglobin 30.4, Mean Corpuscular Hemoglobin Concent 34.2, Mean Platelet Volume 11.0, Neutrophils (%) (Auto) 88.5, Lymphocytes (%) (Auto) 7.0, Monocytes (%) (Auto) 3.8, Eosinophils (%) (Auto) 0.1, Basophils (%) (Auto) 0.1, Neutrophils # (Auto) 14.59, Lymphocytes # (Auto) 1.16, Monocytes # (Auto) 0.63, Eosinophils # (Auto) 0.01, Basophils # (Auto) 0.02 04/26/17 20:00 Test 04/26/17 20:00 04/26/17 20:14 04/26/17 20:17 White Blood Count 16.49 K/uL (4.8-10.8) Red Blood Count 4.27 M/uL (4.2-5.4) Hemoglobin 13.0 g/dL (12.0-16.0) Hematocrit 38.0 % (37-47) Mean Corpuscular Volume 89.0 fL (80-100) Mean Corpuscular Hemoglobin 30.4 pg (25-34) Mean Corpuscular Hemoglobin Concent 34.2 g/dl (32-36) Platelet Count 249 K/uL (130-400) Mean Platelet Volume 11.0 fL (7.4-10.4) Neutrophils (%) (Auto) 88.5 % Lymphocytes (%) (Auto) 7.0 % Monocytes (%) (Auto) 3.8 % Eosinophils (%) (Auto) 0.1 % Basophils (%) (Auto) 0.1 % Neutrophils # (Auto) 14.59 K/uL (1.4-6.5) Lymphocytes # (Auto) 1.16 K/uL (1.2-3.4) Monocytes # (Auto) 0.63 K/uL (0.11-0.59) Eosinophils # (Auto) 0.01 K/uL (0-0.5) Basophils # (Auto) 0.02 K/uL (0-0.2) RDW Standard Deviation 47.7 fL (36.4-46.3) RDW Coefficient of Variation 14.6 % (11.5-14.5) Immature Granulocyte % (Auto) 0.5 % Immature Granulocyte # (Auto) 0.08 K/uL (0.00-0.02) Prothrombin Time 13.1 SECONDS (9.0-12.0) Prothromb Time International Ratio 1.2 (0.9-1.1) Activated Partial Thromboplast Time 41.7 SECONDS (21.0-31.0) Partial Thromboplastin Ratio 1.6 Est Creatinine Clear Calc Drug Dose 43.9 ml/min Estimated GFR () 56.1 Estimated GFR (Non- 48.4 BUN/Creatinine Ratio 22.0 (10-20) Calcium Level 10.6 mg/dl (8.5-10.1) Total Bilirubin 1.1 mg/dl (0.2-1) Aspartate Amino Transf (AST/SGOT) 11 U/L (15-37) Alanine Aminotransferase (ALT/SGPT) 21 U/L (12-78) Alkaline Phosphatase 106 U/L (45-117) Troponin I < 0.015 ng/ml (0-0.045) Pro-B-Type Natriuretic Peptide 4873 pg/ml (0-1800) Total Protein 7.9 gm/dl (6.4-8.2) Albumin 3.5 gm/dl (3.4-5.0) Globulin 4.4 gm/dl (2.5-4.0) Albumin/Globulin Ratio 0.8 (0.9-2) Bedside Hemoglobin 13.6 g/dl (12.0-16.0) Bedside Hematocrit 40 % (37-47) Bedside Sodium 137 mEq/L (135-144) Bedside Potassium 4.1 mEq/L (3.3-5.0) Bedside Chloride 102 mEq/L (101-112) Bedside Total CO2 25 mEq/l (24-31) Anion Gap 15.0 mmol/L (16-25) Bedside Blood Urea Nitrogen 24 mg/dl (7-18) Bedside Creatinine 1.0 mg/dl (0.6-1.3) Bedside Glucose (other) 207 mg/dl (70-99) Bedside Ionized Calcium (Nash) 1.29 mmol/l (1.12-1.32) Venous Blood pH 7.47 (7.36-7.41) Venous Blood Partial Pressure CO2 34 mmHg (38.0-50.0) Venous Blood Partial Pressure O2 32 mmHg Venous Blood HCO3 24 mmol/L Venous Blood Oxygen Saturation 65.3 % Venous Blood Base Excess 0.9 mmol/L Laboratory results per my review. Medications Administered Medications (Trade) Dose Ordered Sig/Paul Route Start Time Stop Time Status Last Admin Dose Admin Sodium Chloride 1,000 ml @ 999 mls/hr Q1H1M STAT IV 04/26/17 19:54 04/26/17 20:54 DC 04/26/17 19:54 999 MLS/HR Albuterol Sulfate (Ventolin 0.083% 2.5MG/3ML Neb) 2.5 mg NOW STAT INH 04/26/17 19:54 04/26/17 19:55 DC 04/26/17 20:09 2.5 MG ECG Indication: SOB/dyspnea Rate (beats per minute): 111 Rhythm: atrial fibrillation (RVR) Findings: PVC, left axis deviation ED Course ED COURSE: Vital signs were reviewed and showed hypoxia and tachycardia The patients medical record was reviewed The above diagnostic studies were performed and reviewed. ED treatments and interventions as stated above. 1941: The patient was evaluated in room A9. A complete history and physical examination was performed. 1953: Albuterol Sulfate 2.5mg INH, Sodium Chloride 1000 ml @ 999 mls/hr IV. 2033: I reviewed the patient's case with Dr. King. He agrees with the patient's treatment plan. 2144: I reviewed the patient's case with Dr. Cross of [facility]. He will evaluate the patient for further management. 2158: Upon reevaluation, the patient is doing well.I discussed my findings with the patient and she understands and agrees with the treatment plan. Based on the patients age, coexisting illnesses, exam and lab findings the decision to treat as an inpatient was made. The patient remained stable while under my care. The patient will be evaluated for further management. Medical Decision Differential diagnoses includes but is not limited to pneumonia, bronchitis, COPD/Asthma exacerbation, pneumothorax, pulmonary embolism, congestive heart failure, acute coronary syndrome Medication Reconciliation: I attest that I have personally reviewed the patient' s current medication list. Blood pressure screening: Patient was found to have normal blood pressure on screening and does not require follow-up. Patient is a 76-year-old female who presents the ER in respiratory distress short of breath. Upon presentation pulse ox is 70% on room air. Patient was placed on nonrebreather pulse ox improved to 88-90%. No history of COPD or asthma. Labs were obtained and chest x-ray showed extensive pulmonary edema. Patient was placed on BiPAP. Patient's symptoms improved markedly. She notes she felt significantly better. Labs remarkable for white count of 16,000, BMP was elevated at 5000, and VBG was fairly unremarkable. EKG was nondiagnostic for STEMI. Patient remained comfortable on BiPAP and was minutes internal medicine with pulmonary edema and hypoxia. Consults Time Called: 2029 Consulting Physician: Dr. King Returned Call: 2033 I reviewed the patient's case with Dr. King. He agrees with the patient's treatment plan. Additional Consults: Time Called: 2139 Consulted Physician: Dr. Burdick - [facility] Returned Call: 2144 Additional Comments: I reviewed the patient's case with Dr. Cross of [facility]. He will evaluate the patient for further management. Impression Primary Impression: Acute respiratory failure with hypoxia Additional Impression: Pulmonary edema Critical Care I have personally spent 75 minutes of critical care time in the direct management of this patient. This includes bedside care, interpretation of diagnostic studies, and testing, discussion with consultants, patient, and family members, and other required patient management activities. This 75 minutes is in excess of all separately billable procedures. Scribe Attestation The scribe's documentation has been prepared under my direction and personally reviewed by me in its entirety. I confirm that the note above accurately reflects all work, treatment, procedures, and medical decision making performed by me. Departure Information Dispostion Being Evaluated By Hospitalist Referrals Barbara Guerrero C.R.N.P. (PCP) Patient Instructions My [facility] Problem Qualifiers Additional Impression: Pulmonary edema Chronicity: acute Qualified Codes: J81.0 - Acute pulmonary edema
[2017-04-26 23:49] VITALS: BP 147/69; PULSE 107; TEMP 37.4; O2SAT 92; BMI 29.3
--- NOTE | 2017-04-26 23:54 | History and Physical ---
History & Physical Date & Time of Service: Apr 26, 2017 at 23:53 Chief Complaint: Acute Respiratory Failure With Hypoxia Primary Care Physician: Barbara Guerrero C.R.N.P. History of Present Illness Source: patient The patient is a 76-year-old female who presents to the emergency department with worsening shortness of breath, cough and wheezing over the past 24 hours. She does have a history of pneumonia. She has not had any recent travels or sick exposures. She has not tried any OTC medications for relief. Past Medical/Surgical History Medical Problems: (1) Allergic reaction Status: Resolved (2) Allergic reaction Status: Resolved (3) Atrial fibrillation Status: Chronic (4) blood clot in eye Status: Resolved (5) Chronic anticoagulation Status: Chronic (6) Diabetes Status: Chronic (7) Dyslipidemia Status: Chronic (8) Heart disease Status: Chronic (9) HTN (hypertension) Status: Chronic (10) Hypothyroidism Status: Chronic (11) Kidney stones Status: Resolved (12) Rash Status: Resolved (13) Rash Status: Resolved Surgical Problems: (1) History of appendectomy Status: Resolved (2) History of cholecystectomy Status: Resolved (3) History of hysterectomy Status: Resolved Family History Cancer Diabetes mellitus Gallbladder disease Heart disease Hypertension Kidney disease Kidney stones Lung disease Social History Smoking Status: Never Smoker Smokeless Tobacco Use: No Alcohol Use: none Drug Use: none Marital Status: Housing status: lives with family Occupational Status: retired Immunizations History of Influenza Vaccine: Yes History of Tetanus Vaccine?: No History of Pneumococcal: No History of Hepatitis B Vaccine: No Multi-Drug Resistant Organisms History of MDRO: No Allergies Coded Allergies: Penicillins (Verified Allergy, Severe, RASH,SWELLING, 01/08/14) Home Medications Scheduled Dabigatran Etexilate Mesylate (Pradaxa), 150 MG PO BID Diltiazem Hcl Ext Rel (Tiazac), 180 MG PO BID Furosemide (Lasix), 40 MG PO DAILY Insulin Glargine (Toujeo Solostar), 32 UNITS SC BID Levothyroxine Sodium (Levothyroxine Sodium), 50 MCG PO DAILYBB Losartan Potassium (Losartan Potassium), 50 MG PO BID Metformin Hcl (Glucophage), 1,000 MG PO BID Metoprolol Succ (Toprol Xl) (Toprol-Xl ), 100 MG PO BID Nitrofurantoin Macrocrystal (Nitrofurantoin), 1 TAB PO BID Pravastatin Sodium (Pravastatin Sodium), 80 MG PO HS Review of Systems The patient denies chest pain, palpitations, lower extremity swelling, sore throat, fevers, chills, sweats, weight change, fatigue, nausea, vomiting, abdominal pain, pelvic pain, blood in urine or stool, dysuria, urinary frequency or urgency, lightheadedness, dizziness, headache, memory loss, rash, abnormal bruising or bleeding, imbalance, focal or generalized weakness, numbness or tingling in arms or legs, arthralgias or myalgias, back or neck pain , night sweats. The review of systems is otherwise negative other than for that already noted above, and at least 10 systems have been reviewed. Physical Exam Vital Signs Date Time Temp Pulse Resp B/P (MAP) Pulse Ox O2 Delivery O2 Flow Rate FiO2 04/26/17 23:20 105 20 137/84 95 04/26/17 22:32 101 18 137/84 96 BiPAP 60 04/26/17 21:00 117 95 60 04/26/17 20:50 109 20 139/91 90 Non-Rebreather 10.0 04/26/17 20:27 115 22 93 Nebulizer 04/26/17 20:00 91 Non-Rebreather 15.0 04/26/17 19:51 72 Room Air 04/26/17 19:51 72 Room Air 04/26/17 19:43 105 04/26/17 19:33 37.2 121 24 130/73 74 Room Air The patient is awake, alert and oriented 3, normocephalic and atraumatic, has a BiPAP mask on, lying in bed and in mild respiratory distress. HEENT--PERRL, EOMI, mucous membranes and oropharynx dry. Neck--supple, no JVD or bruits, thyroid normal, trachea midline, no adenopathy. Heart--normal S1 and S2, no extra beats, no murmurs, rubs or gallops. Lungs--coarse breath sounds bilaterally, mild respiratory distress, no accessory muscle use. Abdomen--normal bowel sounds and soft, nontender and nondistended, no hernias or masses, no organomegaly. Extremities--no cyanosis, clubbing or edema. There are good distal pulses b/l. Dermatologic--normal skin turgor, normal color, warm and dry, no abnormal lymph nodes, no rash. Neurologic--cranial nerves II through XII grossly intact, motor and sensory examination normal. Rheumatologic--normal range of motion, nontender, muscles and joints. Psychiatric--normal affect. Diagnostics Laboratory Results Results Past 24 Hours Test 04/26/17 20:00 04/26/17 20:14 04/26/17 20:17 Range/Units White Blood Count 16.49 4.8-10.8 K/uL Red Blood Count 4.27 4.2-5.4 M/uL Hemoglobin 13.0 12.0-16.0 g/dL Hematocrit 38.0 37-47 % Mean Corpuscular Volume 89.0 80-100 fL Mean Corpuscular Hemoglobin 30.4 25-34 pg Mean Corpuscular Hemoglobin Concent 34.2 32-36 g/dl Platelet Count 249 130-400 K/uL Mean Platelet Volume 11.0 7.4-10.4 fL Neutrophils (%) (Auto) 88.5 % Lymphocytes (%) (Auto) 7.0 % Monocytes (%) (Auto) 3.8 % Eosinophils (%) (Auto) 0.1 % Basophils (%) (Auto) 0.1 % Neutrophils # (Auto) 14.59 1.4-6.5 K/uL Lymphocytes # (Auto) 1.16 1.2-3.4 K/uL Monocytes # (Auto) 0.63 0.11-0.59 K/uL Eosinophils # (Auto) 0.01 0-0.5 K/uL Basophils # (Auto) 0.02 0-0.2 K/uL RDW Standard Deviation 47.7 36.4-46.3 fL RDW Coefficient of Variation 14.6 11.5-14.5 % Immature Granulocyte % (Auto) 0.5 % Immature Granulocyte # (Auto) 0.08 0.00-0.02 K/uL Prothrombin Time 13.1 9.0-12.0 SECONDS Prothromb Time International Ratio 1.2 0.9-1.1 Activated Partial Thromboplast Time 41.7 21.0-31.0 SECONDS Partial Thromboplastin Ratio 1.6 Sodium Level 136 136-145 mmol/L Potassium Level 4.0 3.5-5.1 mmol/L Chloride Level 102 98-107 mmol/L Carbon Dioxide Level 24 21-32 mmol/L Anion Gap 10.0 15.0 16-25 mmol/L Blood Urea Nitrogen 24 7-18 mg/dl Creatinine 1.10 0.60-1.20 mg/dl Est Creatinine Clear Calc Drug Dose 43.9 ml/min Estimated GFR () 56.1 Estimated GFR (Non- 48.4 BUN/Creatinine Ratio 22.0 10-20 Random Glucose 195 70-99 mg/dl Calcium Level 10.6 8.5-10.1 mg/dl Total Bilirubin 1.1 0.2-1 mg/dl Aspartate Amino Transf (AST/SGOT) 11 15-37 U/L Alanine Aminotransferase (ALT/SGPT) 21 12-78 U/L Alkaline Phosphatase 106 45-117 U/L Troponin I < 0.015 0-0.045 ng/ml Pro-B-Type Natriuretic Peptide 4873 0-1800 pg/ml Total Protein 7.9 6.4-8.2 gm/dl Albumin 3.5 3.4-5.0 gm/dl Globulin 4.4 2.5-4.0 gm/dl Albumin/Globulin Ratio 0.8 0.9-2 Bedside Hemoglobin 13.6 12.0-16.0 g/dl Bedside Hematocrit 40 37-47 % Bedside Sodium 137 135-144 mEq/L Bedside Potassium 4.1 3.3-5.0 mEq/L Bedside Chloride 102 101-112 mEq/L Bedside Total CO2 25 24-31 mEq/l Bedside Blood Urea Nitrogen 24 7-18 mg/dl Bedside Creatinine 1.0 0.6-1.3 mg/dl Bedside Glucose (other) 207 70-99 mg/dl Bedside Ionized Calcium (Nash) 1.29 1.12-1.32 mmol/l Venous Blood pH 7.47 7.36-7.41 Venous Blood Partial Pressure CO2 34 38.0-50.0 mmHg Venous Blood Partial Pressure O2 32 mmHg Venous Blood HCO3 24 mmol/L Venous Blood Oxygen Saturation 65.3 % Venous Blood Base Excess 0.9 mmol/L Diagnostic Radiology Patient Name: PARADISE MARMOLEJO Unit Number: [id number] Dictated: 04/26/172054 Transcribed: 04/26/172054 JA Printed Date/Time: [~ rep prt dt]/[~ rep prt tm] [~ rep ct labl] - [~ rep ct ivnm] [facility] [place] [address] Dictated: 04/26/172054 Transcribed: 04/26/172054 JA Printed Date/Time: [~ rep prt dt]/[~ rep prt tm] [~ rep ct labl] - [~ rep ct ivnm] CT ANGIOGRAPHY OF THE CHEST, PULMONARY EMBOLUS PROTOCOL CLINICAL HISTORY: Respiratory distress. Dyspnea. COMPARISON STUDY: Chest radiographs February 12, 2017 and April 26, 2017. TECHNIQUE: Following IV administration of 93 mL of Optiray-320, helical axial images of the chest were obtained utilizing the pulmonary embolus protocol. Maximal intensity projections and sagittal and coronal reformats were viewed on an independent 3D workstation. IV contrast was administered without complication. CT DOSE: 366.72 mGy.cm FINDINGS: No pulmonary emboli are identified although the segmental and subsegmental pulmonary arteries are suboptimally assessed due to respiratory motion. The heart is moderately enlarged. There is no pericardial effusion. An AP window lymph node measures approximately 1.3 cm in short axis diameter. A precarinal lymph node measures approximately 2.4 cm in short axis diameter. There are trace bilateral pleural effusion. There is no pneumothorax. Diffuse interlobular septal thickening is noted with multifocal bilateral airspace opacities, including a 4.9 cm focus of consolidation within the right upper lobe. There is left lower lobe consolidation as well. Lungs are suboptimally assessed due to respiratory motion. No central obstructing mass is identified. Bony thorax and upper abdomen are unremarkable with exception of reflux of contrast into the IVC and hepatic veins. Spleen is top normal for size. There is moderate atherosclerotic calcification. IMPRESSION: 1. No pulmonary emboli identified although segmental and subsegmental pulmonary arteries are suboptimally assessed due to respiratory motion. 2. Diffuse interlobular septal thickening consistent with interstitial pulmonary edema. Multifocal bilateral airspace opacities, including a 4.9 cm focus of right upper lobe consolidation which could reflect superimposed pneumonia or alveolar edema. A chest CT in one month to ensure resolution is recommended. 3. Mild to moderate mediastinal and hilar lymphadenopathy which is nonspecific although may be reactive. This can be assessed on follow-up chest CT. 4. Trace bilateral pleural effusions. 5. Moderate cardiomegaly with reflux of contrast into the IVC and hepatic veins which could indicate right heart dysfunction. Electronically signed by: Rick King M.D. 04/26/2017 9:06 PM Dictated Date/Time: 04/26/2017 8:55 PM The status of this report is Signed. Draft = Not yet reviewed or approved by Radiologist. Signed = Reviewed and approved by Radiologist. <AttendingPhy></AttendingPhy> <FamilyPhy>Barbara Guerrero C.R.NSuzieP.</FamilyPhy> < PrimaryPhy>Barbara Guerrero C.R.N.P.</PrimaryPhy> <UnitNumber>[id number]</ UnitNumber> <VisitNumber>[id number]</VisitNumber> <PatientName>PARADISE MARMOLEJO< /PatientName> <DateOfBirth>1940</DateOfBirth> <Location>[facility]</Location> < ServiceDate>04/26/17</ServiceDate> <MNE>ESINDI</MNE> <OrderingPhy>Familia Polanco DO</OrderingPhy> <OrderingPhyMNE>f rep ord dr alvarez</OrderingPhyMNE> < DictatingPhyMNE>f rep dict dr alvarez</DictatingPhyMNE> <CCListMNE>f rep ct mne</ CCListMNE> <AdmittingPhyMNE>f pt admit dr alvarez</AdmittingPhyMNE> <AttendingPhyMNE >f pt attend dr alvarez</AttendingPhyMNE> <ConsultingPhyMNE>f pt consult dr alvarez</ConsultingPhyMNE> <FamilyPhyMNE>f pt fam dr alvarez</FamilyPhyMNE> <OtherPhyMNE>f pt other dr alvarez</OtherPhyMNE> < PrimaryPhyMNE>f pt prim care dr alvarez</PrimaryPhyMNE> <ReferringPhyMNE>f pt referring dr alvarez</ReferringPhyMNE> Patient Name: FRANCIEPARADISE Ernandez Unit Number: [id number] Dictated: 04/26/172026 Transcribed: 04/26/172026 JA Printed Date/Time: [~ rep prt dt]/[~ rep prt tm] [~ rep ct labl] - [~ rep ct ivnm] [facility] [place] [address] Dictated: 04/26/172026 Transcribed: 04/26/172026 JA Printed Date/Time: [~ rep prt dt]/[~ rep prt tm] [~ rep ct labl] - [~ rep ct ivnm] CHEST ONE VIEW PORTABLE CLINICAL HISTORY: Dyspnea. Respiratory distress. COMPARISON STUDY: Chest radiograph February 12, 2017. FINDINGS: There is no pneumothorax. No pleural effusion is identified. Lung volumes are diminished. There has been interval development of bilateral perihilar opacities with diffuse interstitial thickening. A right suprahilar opacity is noted. 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 IMPRESSION: Interval development of bilateral perihilar opacities and interstitial thickening highly suggestive of pulmonary edema. Pneumonia could appear similar although is considered less likely. Possible right pleural effusion. Electronically signed by: Rick King M.D. 04/26/2017 8:29 PM Dictated Date/Time: 04/26/2017 8:27 PM The status of this report is Signed. Draft = Not yet reviewed or approved by Radiologist. Signed = Reviewed and approved by Radiologist. <AttendingPhy></AttendingPhy> <FamilyPhy>Barbara Guerrero ,Ben.R.N.P.</FamilyPhy> < PrimaryPhy>Barbara Guerrero C.R.N.P.</PrimaryPhy> <UnitNumber>[id number]</ UnitNumber> <VisitNumber>[id number]</VisitNumber> <PatientName>PARADISE MARMOLEJO< /PatientName> <DateOfBirth>1940</DateOfBirth> <Location>[facility]</Location> < ServiceDate>04/26/17</ServiceDate> <MNE>ESINDI</MNE> <OrderingPhy>Familia Polanco DO</OrderingPhy> <OrderingPhyMNE>f rep ord dr alvarez</OrderingPhyMNE> < DictatingPhyMNE>f rep dict dr alvarez</DictatingPhyMNE> <CCListMNE>f rep ct mne</ CCListMNE> <AdmittingPhyMNE>f pt admit dr alvarez</AdmittingPhyMNE> <AttendingPhyMNE >f pt attend dr alvarez</AttendingPhyMNE> <ConsultingPhyMNE>f pt consult dr alvarez</ConsultingPhyMNE> <FamilyPhyMNE>f pt fam dr alvarez</FamilyPhyMNE> <OtherPhyMNE>f pt other dr alvarez</OtherPhyMNE> < PrimaryPhyMNE>f pt prim care dr alvarez</PrimaryPhyMNE> <ReferringPhyMNE>f pt referring dr alvarez</ReferringPhyMNE> EKG EKG shows atrial fibrillation with aberrancy 111 bpm, left bundle branch block, no change compared to 08/18/2016. Impression Assessment and Plan Acute respiratory failure with hypoxia secondary to multifocal pneumonia-- patient be admitted to the telemetry unit. Continue BiPAP. She is allergic to penicillins. Placed on vancomycin IV per renal dosing, Aztreonam 2000mg IV every 8 hours, levofloxacin 5 mg IV every 24 hours, Pulmicort Respules 0.5 mg inhaled twice a day, Xopenex/Atrovent nebulizer every 6 hours while awake and every 2 hours when necessary. Atrial fibrillation/hypertension--continue Pradaxa 100 mg by mouth twice a day, diltiazem extended release 100 mg by mouth twice a day, losartan potassium 50 mg by mouth twice a day, metoprolol succinate 100 mg by mouth twice a day. Hold Lasix 40 mg by mouth daily. Diabetes mellitus--continue Toujeo 32 units subcutaneous twice a day, hold metformin 1000 mg by mouth twice a day, and place on Accu-Cheks before meals and at bedtime with NovoLog coverage per scale. Hypothyroidism--continue levothyroxine sodium 50 g daily at breakfast. Hyperlipidemia--continue pravastatin 80 mg by mouth at bedtime. Level of Care Telemetry Advanced Directives Existing Advance Directive: No Existing Living Will: No Existing Power of Crew Leader Gluing: No Resuscitation Status FULL RESUSCITATION VTE Prophylaxis VTE Risk Assessment Done? Y/N: Yes Risk Level: Moderate Given or contraindicated: Other Anticoagulation (Pradaxa) Social Service Consult None Apply
[2017-04-27] VITALS (18 sets, daily range): BP systolic 112–135; BP diastolic 66–80; PULSE 105–123; TEMP 36.6–38.4; O2SAT 82–96; Ht 165.1 cm; Wt 76.9 kg
[2017-04-27] MEDS ORDERED: INSULIN GLARGINE SOLOSTAR 100 UNITS/ML 3 ML PEN SC ONE (00:45)
[2017-04-27] MEDS ORDERED: LEVALBUTEROL 1.25MG/0.5ML NEB INH PRN (00:45)
[2017-04-27] MEDS: LEVALBUTEROL 1.25MG/0.5ML NEB INH SCH ×3 (01:10→19:17)
[2017-04-27] MEDS: IPRATROPIUM BROMIDE NEB SOLN 0.02% 2.5 ML VIAL INH SCH ×3 (01:10→19:17)
[2017-04-27] MEDS ORDERED: LEVALBUTEROL/IPRATROPIUM NEB INH SCH (03:00)
[2017-04-27] MEDS: AZTREONAM IV 2,000 MG in DEXTROSE 5% 100ML 100 ML IV SCH ×3 (03:03→17:06)
[2017-04-27] MEDS: LEVOFLOXACIN / D5W 500 MG in PREMIXED IN D5W 100 ML IV SCH (03:03)
[2017-04-27] MEDS: LEVOTHYROXINE 50 MCG TAB PO SCH (05:45)
[2017-04-27] MEDS: ACETAMINOPHEN 325 MG TAB PO PRN (05:47)
[2017-04-27 07:36] LABS: BASO % 0.2 %; BASO ABS # 0.02 K/uL (0-0.2); COMPLETE YES; EOS % 0.1 %; HEMATOCRIT 32.8 % (37-47); IG% 0.3 %; LYMPH % 8.7 %; LYMPH ABS # 1.04 K/uL (1.2-3.4); MEAN CELL VOLUME 89.1 fL (80-100); MEAN CORPUSCULAR HEMOGLOBIN 29.3 pg (25-34); MEAN CORPUSCULAR HGB CONC 32.9 g/dl (32-36); MEAN PLATELET VOLUME 10.8 fL (7.4-10.4); MONO % 4.4 %; NEUT % 86.3 %; PLATELET COUNT 182 K/uL (130-400); RED BLOOD COUNT 3.68 M/uL (4.2-5.4); WHITE BLOOD COUNT 11.98 K/uL (4.8-10.8)
[2017-04-27 07:46] LABS: INR 1.2 (0.9-1.1); PARTIAL THROMBOPLASTIN RATIO 1.4; PROTHROMBIN TIME (PATIENT) 12.8 SECONDS (9.0-12.0)
[2017-04-27] MEDS: BUDESONIDE 0.5 MG/2 ML VIAL (PULMICORT) INH SCH ×2 (07:47→19:17)
[2017-04-27] MEDS: METOPROLOL SUCC 50MG EXT REL TAB PO SCH ×2 (08:07→20:32)
[2017-04-27] MEDS: LOSARTAN POTASSIUM 50 MG TAB PO SCH ×2 (08:08→20:31)
[2017-04-27] MEDS: DILTIAZEM HCL (TIAzac) 180 MG CAPCR PO SCH ×2 (08:08→20:33)
[2017-04-27] MEDS: DABIGATRAN ELEXILATE 75 MG CAP PO SCH ×2 (08:08→20:32)
[2017-04-27 08:11] LABS: BUN/CREATININE RATIO 20.6 (10-20); CALCIUM 10.2 mg/dl (8.5-10.1); CREATININE 0.95 mg/dl (0.60-1.20); MAGNESIUM 1.8 mg/dl (1.8-2.4); POTASSIUM 3.7 mmol/L (3.5-5.1)
[2017-04-27] MEDS: INSULIN ASPART 100 UNITS/ML 3 ML PEN SC SCH ×3 (08:12→20:39)
[2017-04-27] MEDS ORDERED: INSULIN GLARGINE SOLOSTAR 100 UNITS/ML 3 ML PEN SC SCH (09:00)
[2017-04-27] MEDS ORDERED: INSULIN GLARGINE SC SCH (09:00)
--- NOTE | 2017-04-27 11:34 | Pharmacy Progress Note ---
Pharmacy Antibiotic Consult Date of Service: Apr 27, 2017. Pharmacy Dosing Scope Pharmacy is consulted to initiate vancomycin IV dosing therapy, order appropriate labs and adjust drug dose/frequency. Subjective The patient is a 76 year old female admitted on Apr 26, 2017 at 22:38 with acute respiratory failure with hypoxia secondary to multifocal pneumonia. Objective Height (Feet): 5 Height (Inches): 5.00 Weight (Kilograms): 81.300 Lab Results (24hrs): Test 04/26/17 20:00 04/26/17 20:14 04/26/17 20:17 04/27/17 01:42 White Blood Count 16.49 K/uL (4.8-10.8) Red Blood Count 4.27 M/uL (4.2-5.4) Hemoglobin 13.0 g/dL (12.0-16.0) Hematocrit 38.0 % (37-47) Mean Corpuscular Volume 89.0 fL (80-100) Mean Corpuscular Hemoglobin 30.4 pg (25-34) Mean Corpuscular Hemoglobin Concent 34.2 g/dl (32-36) Platelet Count 249 K/uL (130-400) Mean Platelet Volume 11.0 fL (7.4-10.4) Neutrophils (%) (Auto) 88.5 % Lymphocytes (%) (Auto) 7.0 % Monocytes (%) (Auto) 3.8 % Eosinophils (%) (Auto) 0.1 % Basophils (%) (Auto) 0.1 % Neutrophils # (Auto) 14.59 K/uL (1.4-6.5) Lymphocytes # (Auto) 1.16 K/uL (1.2-3.4) Monocytes # (Auto) 0.63 K/uL (0.11-0.59) Eosinophils # (Auto) 0.01 K/uL (0-0.5) Basophils # (Auto) 0.02 K/uL (0-0.2) RDW Standard Deviation 47.7 fL (36.4-46.3) RDW Coefficient of Variation 14.6 % (11.5-14.5) Immature Granulocyte % (Auto) 0.5 % Immature Granulocyte # (Auto) 0.08 K/uL (0.00-0.02) Prothrombin Time 13.1 SECONDS (9.0-12.0) Prothromb Time International Ratio 1.2 (0.9-1.1) Activated Partial Thromboplast Time 41.7 SECONDS (21.0-31.0) Partial Thromboplastin Ratio 1.6 Sodium Level 136 mmol/L (136-145) Potassium Level 4.0 mmol/L (3.5-5.1) Chloride Level 102 mmol/L (98-107) Carbon Dioxide Level 24 mmol/L (21-32) Blood Urea Nitrogen 24 mg/dl (7-18) Creatinine 1.10 mg/dl (0.60-1.20) Est Creatinine Clear Calc Drug Dose 43.9 ml/min Estimated GFR () 56.1 Estimated GFR (Non- 48.4 BUN/Creatinine Ratio 22.0 (10-20) Random Glucose 195 mg/dl (70-99) Calcium Level 10.6 mg/dl (8.5-10.1) Total Bilirubin 1.1 mg/dl (0.2-1) Aspartate Amino Transf (AST/SGOT) 11 U/L (15-37) Alanine Aminotransferase (ALT/SGPT) 21 U/L (12-78) Alkaline Phosphatase 106 U/L (45-117) Troponin I < 0.015 ng/ml (0-0.045) Pro-B-Type Natriuretic Peptide 4873 pg/ml (0-1800) Total Protein 7.9 gm/dl (6.4-8.2) Albumin 3.5 gm/dl (3.4-5.0) Globulin 4.4 gm/dl (2.5-4.0) Albumin/Globulin Ratio 0.8 (0.9-2) Bedside Hemoglobin 13.6 g/dl (12.0-16.0) Bedside Hematocrit 40 % (37-47) Bedside Sodium 137 mEq/L (135-144) Bedside Potassium 4.1 mEq/L (3.3-5.0) Bedside Chloride 102 mEq/L (101-112) Bedside Total CO2 25 mEq/l (24-31) Anion Gap 15.0 mmol/L (16-25) Bedside Blood Urea Nitrogen 24 mg/dl (7-18) Bedside Creatinine 1.0 mg/dl (0.6-1.3) Bedside Glucose (other) 207 mg/dl (70-99) Bedside Ionized Calcium (Nash) 1.29 mmol/l (1.12-1.32) Venous Blood pH 7.47 (7.36-7.41) Venous Blood Partial Pressure CO2 34 mmHg (38.0-50.0) Venous Blood Partial Pressure O2 32 mmHg Venous Blood HCO3 24 mmol/L Venous Blood Oxygen Saturation 65.3 % Venous Blood Base Excess 0.9 mmol/L Bedside Glucose 194 mg/dl (70-90) Test 04/27/17 06:45 04/27/17 06:49 04/27/17 09:37 Bedside Glucose 189 mg/dl (70-90) White Blood Count 11.98 K/uL (4.8-10.8) Red Blood Count 3.68 M/uL (4.2-5.4) Hemoglobin 10.8 g/dL (12.0-16.0) Hematocrit 32.8 % (37-47) Mean Corpuscular Volume 89.1 fL (80-100) Mean Corpuscular Hemoglobin 29.3 pg (25-34) Mean Corpuscular Hemoglobin Concent 32.9 g/dl (32-36) Platelet Count 182 K/uL (130-400) Mean Platelet Volume 10.8 fL (7.4-10.4) Neutrophils (%) (Auto) 86.3 % Lymphocytes (%) (Auto) 8.7 % Monocytes (%) (Auto) 4.4 % Eosinophils (%) (Auto) 0.1 % Basophils (%) (Auto) 0.2 % Neutrophils # (Auto) 10.34 K/uL (1.4-6.5) Lymphocytes # (Auto) 1.04 K/uL (1.2-3.4) Monocytes # (Auto) 0.53 K/uL (0.11-0.59) Eosinophils # (Auto) 0.01 K/uL (0-0.5) Basophils # (Auto) 0.02 K/uL (0-0.2) RDW Standard Deviation 48.5 fL (36.4-46.3) RDW Coefficient of Variation 14.6 % (11.5-14.5) Immature Granulocyte % (Auto) 0.3 % Immature Granulocyte # (Auto) 0.04 K/uL (0.00-0.02) Prothrombin Time 12.8 SECONDS (9.0-12.0) Prothromb Time International Ratio 1.2 (0.9-1.1) Activated Partial Thromboplast Time 35.9 SECONDS (21.0-31.0) Partial Thromboplastin Ratio 1.4 Sodium Level 138 mmol/L (136-145) Potassium Level 3.7 mmol/L (3.5-5.1) Chloride Level 105 mmol/L (98-107) Carbon Dioxide Level 24 mmol/L (21-32) Anion Gap 9.0 mmol/L (3-11) Blood Urea Nitrogen 20 mg/dl (7-18) Creatinine 0.95 mg/dl (0.60-1.20) Est Creatinine Clear Calc Drug Dose 52.2 ml/min Estimated GFR () 67.0 Estimated GFR (Non- 57.8 BUN/Creatinine Ratio 20.6 (10-20) Random Glucose 175 mg/dl (70-99) Calcium Level 10.2 mg/dl (8.5-10.1) Magnesium Level 1.8 mg/dl (1.8-2.4) Procalcitonin 0.18 ng/ml (0-0.5) Recent Pertinent Medications Levaquin 500mg IV q 24h and Aztreonam 2gm IV q 8 hrs. Assessment & Plan Vancomycin for multifocal pneumonia (pt with hx of pnx): Loading dose: 2050 mg IV X 1 dose (~25mg/kg) then: 1100 mg IV every 18 hours. Goal trough level estimate: between 15 - 20 mcg/mL. Peak and trough or random level has been ordered for: 04/29 prior to 0600 dose. Pt also ordered Levaquin 500mg IV q 24h and Azactam 2gm IV q 8 hrs. Pharmacy will continue to follow and will adjust dose/frequency as necessary. Thank you
[2017-04-27] MEDS ORDERED: PHARMACY GLYCEMIC MGMT CONSULT PRN (12:52)
--- NOTE | 2017-04-27 14:29 | Pulmonary Consultation ---
History General Date of Service: Apr 27, 2017. Stated Complaint: Acute Respiratory Failure With Hypoxia HPI The patient is a 76 year old female who presents to [facility] with complaints of Acute Respiratory Failure With Hypoxia. The patient's primary care provider is Barbara Guerrero C.R.N.P.. The patient recently saw Dr. Dylan Cook for work-up on her progressive SOB beginning in July of 2016. At that time she was admitted to the hospital with digitalis toxicity and noted minimal respiratory signs and symptoms but has progressed to BARNES after walking 50 yards. She also notes dyspnea with minimal activities such as hanging her clothes or bending over. She notes a mild non-productive cough. Her PmHx is significant for diastolic heart failure , atrial fibrillation along with tricuspid and mitral regurgitation. The patient notes a progressive dyspnea over the previous 24-36 hours require hospital admission. At this time she notes mild stability in her overall respiratory status but is currently on high flow oxygen system. She continues to deny fever, chills, productive cough, pleurisy, classic cardiac chest pain, unintentional weight loss, myalgias or night sweats. Current Work-Up: WBC: 16K--12K (Neutro#: 14.59) H/H: 11/33 PLT: 249K--182K VB.47/34 corrected to 7.51/27 BUN/Cr: 24/1.10---20/0.95 Procalcitonin: 0.18 (WNL) P-BNP: 4873 T-Bili: 1.1 Troponin: <0.015 INR: 1.2 PT: 12.8 aPTT: 35.9 EKG: A-fib with RVR rate 112 and intra-conduction delay Radiology: CTA Thorax No PE, global signs of volume over load Bilateral opacifications of the lower lobes and RUL Bronchiectasis with Atelectasis of RB4 Small bilateral pleural effusions CXR: compared to 02/12/17 Bilateral hilar fullness with gabriel-bronchial cuffing and RUL infiltrative pattern [id number] Previous Work-Up: Spirometry (10/03/16) mild [id number] Heart Cath (03/01/17) Left Heart: EF=50-55%, slightly dilated left atrium, 2+ MR, LVEDP=10mmHg Right Heart: PA: 43/ (mean: 26) PAOP: 16 mmHg RV: 43/0 EDP: 7mmHg PVR: 2.56 Taylor CO/CI: 3.9L/min---2.1L/min/m2 TD TP Microbiology Urine (08/16/16) Enterococcus Faecalis Medications: 1) Vancomycin 2) Paradaxa 3) Pulmicort BID NEB 4) Xopenex/Atrivent [id number] 5) Levofloxacin 500mg 6) Aztreonam Historian: patient, EMS Review of Systems Constitutional: reports: malaise, weakness Eyes: reports: no symptoms ENT: reports: other (dry oropharynx) Cardiovascular: reports: chest tightness Respiratory: reports: as stated in HPI Gastrointestinal: reports: no symptoms Genitourinary - Female: reports: no symptoms Musculoskeletal: reports: arthralgias Integumentary: reports: no symptoms Neurologic: reports: no symptoms Psychiatric: reports: no symptoms Endocrine: no symptoms Hematologic / Lymphatic: no symptoms Allergic / Immunologic: no symptoms Past Medical History Past Medical History: 1. Abnormal nuclear stress test 2. Acute bronchitis with bronchospasm 3. Anticoagulant long-term use 4. Atrial fibrillation 5. CAD in [place] artery 6. Cardiomyopathy 7. Carpal tunnel syndrome of left wrist 8. Chronic diastolic congestive heart failure 9. Degenerative joint disease of right shoulder 10. Diabetes mellitus type 2 with complications 11. Diabetic macular edema 12. Diabetic peripheral neuropathy 13. Diabetic retinopathy, nonproliferative 14. Edema of both legs 15. Hypercholesterolemia 16. Hypertension 17. Hypothyroidism 18. Insomnia 19. LBBB (left bundle branch block) 20. Lipoma 21. Mitral regurgitation 22. Multiple joint pain 23. Onychomycosis 24. Psoriasis 25. Pulmonary hypertension group 2 26. Right knee pain 27. Seborrheic keratosis 28. Tricuspid valve insufficiency 29. Herpes Zoster 30. Sleep onset insomnia 31. Neck Lipoma Past Surgical History: 1. Appendectomy 2. Cholecystectomy 3. Hysterectomy Family History Cancer Diabetes mellitus Gallbladder disease Heart disease Hypertension Kidney disease Kidney stones Lung disease 1. Diabetes mellitus 2. Myocardial infarction Social History always uses seat belt Exercises 1 to 2 times per week never a smoker No alcohol use No drug use Retired: worked for 39 years for a [employer] Hx Tobacco Use In Past Year?: No Smoking Status: Never Smoker Marital status: Housing status: lives with family Occupational Status: retired Immunizations History of Influenza Vaccine: Yes History of Tetanus Vaccine?: No History of Pneumococcal: No History of Hepatitis B Vaccine: No History of MDRO History of MDRO: No Allergies Coded Allergies: Penicillins (Verified Allergy, Severe, RASH,SWELLING, 01/08/14) Current Medications Reported Home Medications Medications Dose Route/Sig Max Daily Dose Days Date Category Pravastatin Sodium 80 Mg Tab 80 Mg PO HS 04/26/17 Reported Losartan Potassium 50 Mg Tab 50 Mg PO BID 04/26/17 Reported Levothyroxine Sodium 50 Mcg Tab 50 Mcg PO DAILYBB 04/26/17 Reported Glucophage (Metformin Hcl) 1,000 Mg Tab 1,000 Mg PO BID 03/01/17 Reported Tiazac (Diltiazem HCl) 180 Mg Capcr 180 Mg PO BID 02/28/17 Reported Toujeo Solostar (Insulin Glargine) 300 Unit/Ml Inj 32 Units SC BID 02/28/17 Reported Toprol-Xl (Metoprolol Succinate) 100 Mg Tabcr 100 Mg PO BID 02/28/17 Reported Nitrofurantoin (Nitrofurantoin Macrocrystal) 100 Mg Cap 1 Tab PO BID 02/28/17 Reported Lasix (Furosemide) 40 Mg Tab 40 Mg PO DAILY 08/15/16 Reported Pradaxa (Dabigatran Etexilate Mesylate) 150 Mg Cap 150 Mg PO BID 09/14/14 Reported Physical Physical Exam Vital Signs: Date Time Temp Pulse Resp B/P (MAP) Pulse Ox O2 Delivery O2 Flow Rate FiO2 04/27/17 12:00 BiPAP 60 04/27/17 08:00 96 BiPAP 60 04/27/17 07:46 123 27 95 BiPAP/CPAP 60 04/27/17 07:44 123 95 60 04/27/17 07:37 38.4 116 20 117/70 (86) 91 BiPAP 04/27/17 05:45 105 93 60 04/27/17 04:06 37.5 111 20 112/67 (82) 92 BiPAP 04/27/17 04:00 92 BiPAP 2.0 60 Non-Rebreather 04/27/17 01:11 119 26 93 BiPAP/CPAP 60 04/27/17 01:11 119 93 60 04/27/17 00:01 92 BiPAP 2.0 60 Non-Rebreather 04/26/17 23:49 37.4 107 32 147/69 92 Diffusion Mask 7.0 04/26/17 23:20 105 20 137/84 95 04/26/17 22:32 101 18 137/84 96 BiPAP 60 04/26/17 21:00 117 95 60 04/26/17 20:50 109 20 139/91 90 Non-Rebreather 10.0 04/26/17 20:27 115 22 93 Nebulizer 04/26/17 20:00 91 Non-Rebreather 15.0 04/26/17 19:51 72 Room Air 04/26/17 19:51 72 Room Air 04/26/17 19:43 105 04/26/17 19:33 37.2 121 24 130/73 74 Room Air General Appearance: moderate distress Head: NORMOCEPHALIC, ATRAUMATIC Eyes: PERRLA, NO DISCHARGE, EOMI, SCLERAE NORMAL, CONJUNCTIVAE NORMAL ENT: NORMAL EAR EXAM, NORMAL NASAL EXAM, other (dry oropharynx) Neck: NORMAL RANGE OF MOTION, NO TENDERNESS, TRACHEA MIDLINE, NO STRIDOR Respiratory: other (bilateral rhonchi and decreased breath sounds at the bases bilaterally) Cardiovasular: other (irregular rate and rhythm S1-S2 tachycardic) Abdomen: NON TENDER, NORMAL BOWEL SOUNDS, NO REBOUND, NO MASSES, NO GUARDING, NO ORGANOMEGALY Genitourinary - Female: EXTERNAL GENITALIA NORMAL Back: NORMAL INSPECTION, NO MIDLINE TENDERNESS, NO CVA TENDERNESS, NO PARAVERTEBRAL TTP Upper Extremities: NO EDEMA, NO DEFORMITY, NORMAL ROM Lower Extremities: NO EDEMA, NO DEFORMITY, NORMAL ROM Pulses: carotid (R) (2+), carotid (L) (2+), posterior tibial (R), posterior tibial (L) (1+) Neuro: ALERT, ORIENTED x 3, NORMAL MOTOR EXAM, NORMAL SENSATION, NORMAL CEREBELLAR EXAM Reflexes: biceps (R) (2+), bicpes (L) (2+), achilles (R) (1+), achilles (L) (1+ ) Babinski Testing: right (downgoing), left (downgoing) Psychiatric: NORMAL AFFECT Diagnostics Labs Results Past 24 Hours Test 04/26/17 20:00 04/26/17 20:14 04/26/17 20:17 04/27/17 01:42 Range/Units White Blood Count 16.49 4.8-10.8 K/uL Red Blood Count 4.27 4.2-5.4 M/uL Hemoglobin 13.0 12.0-16.0 g/dL Hematocrit 38.0 37-47 % Mean Corpuscular Volume 89.0 80-100 fL Mean Corpuscular Hemoglobin 30.4 25-34 pg Mean Corpuscular Hemoglobin Concent 34.2 32-36 g/dl Platelet Count 249 130-400 K/uL Mean Platelet Volume 11.0 7.4-10.4 fL Neutrophils (%) (Auto) 88.5 % Lymphocytes (%) (Auto) 7.0 % Monocytes (%) (Auto) 3.8 % Eosinophils (%) (Auto) 0.1 % Basophils (%) (Auto) 0.1 % Neutrophils # (Auto) 14.59 1.4-6.5 K/uL Lymphocytes # (Auto) 1.16 1.2-3.4 K/uL Monocytes # (Auto) 0.63 0.11-0.59 K/uL Eosinophils # (Auto) 0.01 0-0.5 K/uL Basophils # (Auto) 0.02 0-0.2 K/uL RDW Standard Deviation 47.7 36.4-46.3 fL RDW Coefficient of Variation 14.6 11.5-14.5 % Immature Granulocyte % (Auto) 0.5 % Immature Granulocyte # (Auto) 0.08 0.00-0.02 K/uL Prothrombin Time 13.1 9.0-12.0 SECONDS Prothromb Time International Ratio 1.2 0.9-1.1 Activated Partial Thromboplast Time 41.7 21.0-31.0 SECONDS Partial Thromboplastin Ratio 1.6 Sodium Level 136 136-145 mmol/L Potassium Level 4.0 3.5-5.1 mmol/L Chloride Level 102 98-107 mmol/L Carbon Dioxide Level 24 21-32 mmol/L Anion Gap 10.0 15.0 16-25 mmol/L Blood Urea Nitrogen 24 7-18 mg/dl Creatinine 1.10 0.60-1.20 mg/dl Est Creatinine Clear Calc Drug Dose 43.9 ml/min Estimated GFR () 56.1 Estimated GFR (Non- 48.4 BUN/Creatinine Ratio 22.0 10-20 Random Glucose 195 70-99 mg/dl Calcium Level 10.6 8.5-10.1 mg/dl Total Bilirubin 1.1 0.2-1 mg/dl Aspartate Amino Transf (AST/SGOT) 11 15-37 U/L Alanine Aminotransferase (ALT/SGPT) 21 12-78 U/L Alkaline Phosphatase 106 45-117 U/L Troponin I < 0.015 0-0.045 ng/ml Pro-B-Type Natriuretic Peptide 4873 0-1800 pg/ml Total Protein 7.9 6.4-8.2 gm/dl Albumin 3.5 3.4-5.0 gm/dl Globulin 4.4 2.5-4.0 gm/dl Albumin/Globulin Ratio 0.8 0.9-2 Bedside Hemoglobin 13.6 12.0-16.0 g/dl Bedside Hematocrit 40 37-47 % Bedside Sodium 137 135-144 mEq/L Bedside Potassium 4.1 3.3-5.0 mEq/L Bedside Chloride 102 101-112 mEq/L Bedside Total CO2 25 24-31 mEq/l Bedside Blood Urea Nitrogen 24 7-18 mg/dl Bedside Creatinine 1.0 0.6-1.3 mg/dl Bedside Glucose (other) 207 70-99 mg/dl Bedside Ionized Calcium (Nash) 1.29 1.12-1.32 mmol/l Venous Blood pH 7.47 7.36-7.41 Venous Blood Partial Pressure CO2 34 38.0-50.0 mmHg Venous Blood Partial Pressure O2 32 mmHg Venous Blood HCO3 24 mmol/L Venous Blood Oxygen Saturation 65.3 % Venous Blood Base Excess 0.9 mmol/L Bedside Glucose 194 70-90 mg/dl Test 04/27/17 06:45 04/27/17 06:49 04/27/17 09:37 04/27/17 11:24 Range/Units Bedside Glucose 189 329 70-90 mg/dl White Blood Count 11.98 4.8-10.8 K/uL Red Blood Count 3.68 4.2-5.4 M/uL Hemoglobin 10.8 12.0-16.0 g/dL Hematocrit 32.8 37-47 % Mean Corpuscular Volume 89.1 80-100 fL Mean Corpuscular Hemoglobin 29.3 25-34 pg Mean Corpuscular Hemoglobin Concent 32.9 32-36 g/dl Platelet Count 182 130-400 K/uL Mean Platelet Volume 10.8 7.4-10.4 fL Neutrophils (%) (Auto) 86.3 % Lymphocytes (%) (Auto) 8.7 % Monocytes (%) (Auto) 4.4 % Eosinophils (%) (Auto) 0.1 % Basophils (%) (Auto) 0.2 % Neutrophils # (Auto) 10.34 1.4-6.5 K/uL Lymphocytes # (Auto) 1.04 1.2-3.4 K/uL Monocytes # (Auto) 0.53 0.11-0.59 K/uL Eosinophils # (Auto) 0.01 0-0.5 K/uL Basophils # (Auto) 0.02 0-0.2 K/uL RDW Standard Deviation 48.5 36.4-46.3 fL RDW Coefficient of Variation 14.6 11.5-14.5 % Immature Granulocyte % (Auto) 0.3 % Immature Granulocyte # (Auto) 0.04 0.00-0.02 K/uL Prothrombin Time 12.8 9.0-12.0 SECONDS Prothromb Time International Ratio 1.2 0.9-1.1 Activated Partial Thromboplast Time 35.9 21.0-31.0 SECONDS Partial Thromboplastin Ratio 1.4 Sodium Level 138 136-145 mmol/L Potassium Level 3.7 3.5-5.1 mmol/L Chloride Level 105 98-107 mmol/L Carbon Dioxide Level 24 21-32 mmol/L Anion Gap 9.0 3-11 mmol/L Blood Urea Nitrogen 20 7-18 mg/dl Creatinine 0.95 0.60-1.20 mg/dl Est Creatinine Clear Calc Drug Dose 52.2 ml/min Estimated GFR () 67.0 Estimated GFR (Non- 57.8 BUN/Creatinine Ratio 20.6 10-20 Random Glucose 175 70-99 mg/dl Calcium Level 10.2 8.5-10.1 mg/dl Magnesium Level 1.8 1.8-2.4 mg/dl Procalcitonin 0.18 0-0.5 ng/ml Test 04/27/17 12:27 Range/Units Bedside Glucose 274 70-90 mg/dl Microbiology Results 04/27/17 MRSA DNA Surveillance Screen, Received Pending Diagnostic Radiology CTA Thorax No PE, global signs of volume over load Bilateral opacifications of the lower lobes and RUL Bronchiectasis with Atelectasis of RB4 Small bilateral pleural effusions CXR: compared to 02/12/17 Bilateral hilar fullness with gabriel-bronchial cuffing and RUL infiltrative pattern EKG A-fib with RVR rate 112 and intra-conduction delay Impression Assessment and Plan 76-year-old female admitted with acute on chronic respiratory insufficiency/ hypoxia: #1 Hypoxia: I switch the patient over to high flow oxygen system as her ABG showed no signs of CO2 retention. Also suggest that this time that we discontinue Pulmicort as there is no history of COPD or asthma in this patient. I will send off labs for evaluation of vasculitis or connective tissue diseases as well as evaluating for legionnaires disease. #2 ID: At this time patient is well covered on vancomycin, levofloxacin and aztreonam will continue to monitor.
--- NOTE | 2017-04-27 14:38 | Pharmacy Progress Note ---
Glycemic Control Intl Consult Date of Service Apr 27, 2017. Scope Glycemic Pharmacist consulted by Dr Davies on 04/27 for glycemic control and to write orders per [facility] inpatient glycemic control protocol Objective Weight (Kilograms): 81.300 Accuchecks BSG (last 24hrs): Test 04/26/17 20:00 04/27/17 01:42 04/27/17 06:45 04/27/17 06:49 Random Glucose 195 mg/dl (70-99) 175 mg/dl (70-99) Bedside Glucose 194 mg/dl (70-90) 189 mg/dl (70-90) Test 04/27/17 11:24 04/27/17 12:27 Bedside Glucose 329 mg/dl (70-90) 274 mg/dl (70-90) Laboratory Data (last 24hrs) Test 04/26/17 20:00 04/26/17 20:14 04/27/17 06:49 Anion Gap 10.0 mmol/L 15.0 mmol/L 9.0 mmol/L BUN/Creatinine Ratio 22.0 20.6 Blood Urea Nitrogen 24 mg/dl 20 mg/dl Creatinine 1.10 mg/dl 0.95 mg/dl Potassium Level 4.0 mmol/L 3.7 mmol/L Sodium Level 136 mmol/L 138 mmol/L White Blood Count 16.49 K/uL 11.98 K/uL Red Blood Count 4.27 M/uL 3.68 M/uL Hemoglobin 13.0 g/dL 10.8 g/dL Hematocrit 38.0 % 32.8 % Mean Corpuscular Volume 89.0 fL 89.1 fL Mean Corpuscular Hemoglobin 30.4 pg 29.3 pg Mean Corpuscular Hemoglobin Concent 34.2 g/dl 32.9 g/dl Platelet Count 249 K/uL 182 K/uL Mean Platelet Volume 11.0 fL 10.8 fL Neutrophils (%) (Auto) 88.5 % 86.3 % Lymphocytes (%) (Auto) 7.0 % 8.7 % Monocytes (%) (Auto) 3.8 % 4.4 % Eosinophils (%) (Auto) 0.1 % 0.1 % Basophils (%) (Auto) 0.1 % 0.2 % Neutrophils # (Auto) 14.59 K/uL 10.34 K/uL Lymphocytes # (Auto) 1.16 K/uL 1.04 K/uL Monocytes # (Auto) 0.63 K/uL 0.53 K/uL Eosinophils # (Auto) 0.01 K/uL 0.01 K/uL Basophils # (Auto) 0.02 K/uL 0.02 K/uL Recent Pertinent Medications Outpatient Anti-diabetic Regimen: * Toujeo 32 units SC BID * Metformin 1 g po BID * A1c = 6.8% on 01/29/17 The patient is currently receiving: * Basal insulin: Lantus 25 units x1 04/26 PM then 32 units every 12 hours * Correctional Insulin: Novolog Correction per scale ACHS Goal Range: Low 100 mg/dL - High 150 mg/dL Correction Factor: 30 mg/dL/unit * Prandial insulin: Per carb ratio of 1 unit per 10 grams CHO consumed * Oral Agents: On hold Risk Factors for Insulin Resistance: * Infection: PNA * Diet: T2DM, now switched to NPO Assessment & Plan ASSESSMENT: * ADA & AACE recommend a goal blood sugar range 140-180 mg/dl for the majority of critically ill & non-critically ill patients. However, more stringent targets may be selected in individual cases. * 76 yo F with PNA. Pharmacy consulted 2nd severe hyperglycemia to 329 mg/dL at lunch today * Unclear etiology as BSG decreased 1 hr later to 274 mg/dL without any additional insulin (other than 0800 Novolog) or IVF administered. ? transient increase due to Xopenex * Patient now NPO - very unclear as to what basal will be appropriate as the only insulin patient receives as outpatient is basal (Toujeo), which likely also covers prandial BSG's. Outpatient dose therefore likely too high, especially now that patient is NPO. Will have multiple doses based on BSG. * Will have multiple BSG checks 2nd unclear etiology of lunch BSG. Anticipate that q4h checks will not last longer than 24 hours. * Will tighten both correction factor (and carb ratio in anticipation of patient being re-ordered a diet at some point) PLAN FOR INPATIENT GLYCEMIC CONTROL: * Holding outpatient oral diabetes medications * Basal insulin with LANTUS SQ BID based on BSG * 0 units for BSG < 100 * 10 units for BSG 100-139 mg/dL * 20 units for BSG 140-200 mg/dL * 30 units for BSG >200 mg/dL * Correctional Insulin with NOVOLOG q4hrs while NPO * Goal Range: Low 110 mg/dL - High 150 mg/dL * Correction Factor: 25 mg/dL/unit * Nutritional / Prandial insulin per carb ratio of 1 unit per 8 grams CHO consumed * Please note that the plan above was derived based on current level of insulin resistance and hospital stress. These recommendations are appropriate for inpatient admission only. Plan of care upon discharge will need to be reassessed to avoid potential outpatient hypo/hyperglycemia. Thank you.
[2017-04-27] MEDS ORDERED: INSULIN ASPART 100 UNITS/ML 3 ML PEN SC SCH (16:00)
[2017-04-27] MEDS: PRAVASTATIN SOD 40 MG TAB PO SCH (16:59)
--- NOTE | 2017-04-27 17:26 | Hospitalist Progress Note ---
Hospitalist Progress Note Date of Service Apr 27, 2017. Subjective off bipap now. placed on high flow O2. able to breath better on it. denies any chest pain Constitutional: No fever Abdomen: No pain, No nausea Objective Vital Signs Date Time Temp Pulse Resp B/P (MAP) Pulse Ox O2 Delivery O2 Flow Rate FiO2 04/27/17 15:25 37.5 105 22 131/70 (90) 93 CPAP 04/27/17 12:00 37.5 121 20 135/80 (98) 89 High Flow Oxygen 40.0 100 04/27/17 12:00 BiPAP 60 04/27/17 08:00 96 BiPAP 60 04/27/17 07:46 123 27 95 BiPAP/CPAP 60 04/27/17 07:44 123 95 60 04/27/17 07:37 38.4 116 20 117/70 (86) 91 BiPAP 04/27/17 05:45 105 93 60 04/27/17 04:06 37.5 111 20 112/67 (82) 92 BiPAP 04/27/17 04:00 92 BiPAP 2.0 60 Non-Rebreather 04/27/17 01:11 119 26 93 BiPAP/CPAP 60 04/27/17 01:11 119 93 60 04/27/17 00:01 92 BiPAP 2.0 60 Non-Rebreather 04/26/17 23:49 37.4 107 32 147/69 92 Diffusion Mask 7.0 04/26/17 23:20 105 20 137/84 95 04/26/17 22:32 101 18 137/84 96 BiPAP 60 04/26/17 21:00 117 95 60 04/26/17 20:50 109 20 139/91 90 Non-Rebreather 10.0 04/26/17 20:27 115 22 93 Nebulizer 04/26/17 20:00 91 Non-Rebreather 15.0 04/26/17 19:51 72 Room Air 04/26/17 19:51 72 Room Air 04/26/17 19:43 105 04/26/17 19:33 37.2 121 24 130/73 74 Room Air Physical Exam General Appearance: + mild distress (respiratory - on high flow O2) Respiratory/Chest: + respiratory distress, + rhonchi Cardiovascular: + irregularly irregular Abdomen: soft Neurologic/Psychiatric: alert, oriented x 3 Skin: warm/dry Laboratory Results Last 24 Hours Test 04/26/17 20:00 04/26/17 20:14 04/26/17 20:17 04/27/17 01:42 White Blood Count 16.49 K/uL Red Blood Count 4.27 M/uL Hemoglobin 13.0 g/dL Hematocrit 38.0 % Mean Corpuscular Volume 89.0 fL Mean Corpuscular Hemoglobin 30.4 pg Mean Corpuscular Hemoglobin Concent 34.2 g/dl Platelet Count 249 K/uL Mean Platelet Volume 11.0 fL Neutrophils (%) (Auto) 88.5 % Lymphocytes (%) (Auto) 7.0 % Monocytes (%) (Auto) 3.8 % Eosinophils (%) (Auto) 0.1 % Basophils (%) (Auto) 0.1 % Neutrophils # (Auto) 14.59 K/uL Lymphocytes # (Auto) 1.16 K/uL Monocytes # (Auto) 0.63 K/uL Eosinophils # (Auto) 0.01 K/uL Basophils # (Auto) 0.02 K/uL RDW Standard Deviation 47.7 fL RDW Coefficient of Variation 14.6 % Immature Granulocyte % (Auto) 0.5 % Immature Granulocyte # (Auto) 0.08 K/uL Prothrombin Time 13.1 SECONDS Prothromb Time International Ratio 1.2 Activated Partial Thromboplast Time 41.7 SECONDS Partial Thromboplastin Ratio 1.6 Sodium Level 136 mmol/L Potassium Level 4.0 mmol/L Chloride Level 102 mmol/L Carbon Dioxide Level 24 mmol/L Anion Gap 10.0 mmol/L 15.0 mmol/L Blood Urea Nitrogen 24 mg/dl Creatinine 1.10 mg/dl Est Creatinine Clear Calc Drug Dose 43.9 ml/min Estimated GFR () 56.1 Estimated GFR (Non- 48.4 BUN/Creatinine Ratio 22.0 Random Glucose 195 mg/dl Calcium Level 10.6 mg/dl Total Bilirubin 1.1 mg/dl Aspartate Amino Transf (AST/SGOT) 11 U/L Alanine Aminotransferase (ALT/SGPT) 21 U/L Alkaline Phosphatase 106 U/L Troponin I < 0.015 ng/ml Pro-B-Type Natriuretic Peptide 4873 pg/ml Total Protein 7.9 gm/dl Albumin 3.5 gm/dl Globulin 4.4 gm/dl Albumin/Globulin Ratio 0.8 Bedside Hemoglobin 13.6 g/dl Bedside Hematocrit 40 % Bedside Sodium 137 mEq/L Bedside Potassium 4.1 mEq/L Bedside Chloride 102 mEq/L Bedside Total CO2 25 mEq/l Bedside Blood Urea Nitrogen 24 mg/dl Bedside Creatinine 1.0 mg/dl Bedside Glucose (other) 207 mg/dl Bedside Ionized Calcium (Nash) 1.29 mmol/l Venous Blood pH 7.47 Venous Blood Partial Pressure CO2 34 mmHg Venous Blood Partial Pressure O2 32 mmHg Venous Blood HCO3 24 mmol/L Venous Blood Oxygen Saturation 65.3 % Venous Blood Base Excess 0.9 mmol/L Bedside Glucose 194 mg/dl Test 04/27/17 06:45 04/27/17 06:49 04/27/17 09:37 04/27/17 11:24 Bedside Glucose 189 mg/dl 329 mg/dl White Blood Count 11.98 K/uL Red Blood Count 3.68 M/uL Hemoglobin 10.8 g/dL Hematocrit 32.8 % Mean Corpuscular Volume 89.1 fL Mean Corpuscular Hemoglobin 29.3 pg Mean Corpuscular Hemoglobin Concent 32.9 g/dl Platelet Count 182 K/uL Mean Platelet Volume 10.8 fL Neutrophils (%) (Auto) 86.3 % Lymphocytes (%) (Auto) 8.7 % Monocytes (%) (Auto) 4.4 % Eosinophils (%) (Auto) 0.1 % Basophils (%) (Auto) 0.2 % Neutrophils # (Auto) 10.34 K/uL Lymphocytes # (Auto) 1.04 K/uL Monocytes # (Auto) 0.53 K/uL Eosinophils # (Auto) 0.01 K/uL Basophils # (Auto) 0.02 K/uL RDW Standard Deviation 48.5 fL RDW Coefficient of Variation 14.6 % Immature Granulocyte % (Auto) 0.3 % Immature Granulocyte # (Auto) 0.04 K/uL Prothrombin Time 12.8 SECONDS Prothromb Time International Ratio 1.2 Activated Partial Thromboplast Time 35.9 SECONDS Partial Thromboplastin Ratio 1.4 Sodium Level 138 mmol/L Potassium Level 3.7 mmol/L Chloride Level 105 mmol/L Carbon Dioxide Level 24 mmol/L Anion Gap 9.0 mmol/L Blood Urea Nitrogen 20 mg/dl Creatinine 0.95 mg/dl Est Creatinine Clear Calc Drug Dose 52.2 ml/min Estimated GFR () 67.0 Estimated GFR (Non- 57.8 BUN/Creatinine Ratio 20.6 Random Glucose 175 mg/dl Calcium Level 10.2 mg/dl Magnesium Level 1.8 mg/dl Procalcitonin 0.18 ng/ml Test 04/27/17 12:27 04/27/17 16:00 04/27/17 16:12 04/27/17 16:17 Bedside Glucose 274 mg/dl 267 mg/dl Erythrocyte Sedimentation Rate 54 mm/hr C-Reactive Protein 18.90 mg/dl Assessment and Plan 76 y/o F here with shortness of breath. Acute respiratory failure with hypoxia - secondary to multifocal pneumonia but bnp elevated as well - off bipap. now on Hi flow O2. Multifocal Pneumonia - - ?aspiration - vancomycin IV per renal dosing, Aztreonam 2000mg IV every 8 hours, levofloxacin 5 mg IV every 24 hours, - Xopenex/Atrovent nebulizer every 6 hours while awake and every 2 hours when necessary. - no h/o asthma/copd - labs sent for vasculitis or connective tissue diseases, legionnaires disease - esr/crp elevation but normal procalcitonin Right upper lobe nodule Lower lobe changes - increased lower lobe posterior subsegment change on the CAT scan and per the nursing staff she does complain of possible aspiration/dysphagia. - swallowing eval. 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 Further CAT scan and pulmonary function tests will required for this workup. Hypercalcemia - Check vitamin d and pth. - hydrated in the ED Atrial fibrillation/hypertension--continue Pradaxa 100 mg by mouth twice a day, diltiazem extended release 100 mg by mouth twice a day, losartan potassium 50 mg by mouth twice a day, metoprolol succinate 100 mg by mouth twice a day. Hold Lasix 40 mg by mouth daily. Diabetes mellitus-- A1c 6.8 in january 2017 continue Toujeo 32 units subcutaneous twice a day, hold metformin 1000 mg by mouth twice a day, and place on Accu-Cheks before meals and at bedtime with NovoLog coverage per scale. glycemic consult Hypothyroidism--continue levothyroxine sodium 50 g daily at breakfast. Hyperlipidemia--continue pravastatin 80 mg by mouth at bedtime. Pradaxa Full code
[2017-04-27] MEDS: VANCOMYCIN INJ 1,000 MG in SODIUM CHLORIDE 0.9% 250ML 250 ML IV SCH (18:25)
[2017-04-27] MEDS ORDERED: NURSING VERBAL MED ORDER ONE (20:15)
[2017-04-27] MEDS: INSULIN GLARGINE SOLOSTAR 100 UNITS/ML 3 ML PEN SC SCH (20:40)
[2017-04-28] VITALS (20 sets, daily range): BP systolic 98–142; BP diastolic 61–75; PULSE 92–116; TEMP 36–37.7; O2SAT 89–100
[2017-04-28] MEDS: ACETAMINOPHEN 325 MG TAB PO PRN ×2 (00:07→21:19)
[2017-04-28] MEDS: AZTREONAM IV 2,000 MG in DEXTROSE 5% 100ML 100 ML IV SCH ×3 (01:09→16:30)
[2017-04-28] MEDS: LEVOFLOXACIN / D5W 500 MG in PREMIXED IN D5W 100 ML IV SCH (01:10)
[2017-04-28] MEDS: LEVALBUTEROL 1.25MG/0.5ML NEB INH SCH ×4 (01:33→19:04)
[2017-04-28] MEDS: IPRATROPIUM BROMIDE NEB SOLN 0.02% 2.5 ML VIAL INH SCH ×4 (01:33→19:04)
[2017-04-28] MEDS: INSULIN ASPART 100 UNITS/ML 3 ML PEN SC SCH ×6 (03:52→21:17)
[2017-04-28] MEDS: LEVOTHYROXINE 50 MCG TAB PO SCH (05:35)
[2017-04-28 06:30] LABS: BASO % 0.2 %; BASO ABS # 0.02 K/uL (0-0.2); COMPLETE YES; EOS % 0.8 %; HEMATOCRIT 31.5 % (37-47); IG% 0.4 %; LYMPH % 13.9 %; LYMPH ABS # 1.18 K/uL (1.2-3.4); MEAN CELL VOLUME 89.5 fL (80-100); MEAN CORPUSCULAR HEMOGLOBIN 29.8 pg (25-34); MEAN CORPUSCULAR HGB CONC 33.3 g/dl (32-36); MEAN PLATELET VOLUME 10.8 fL (7.4-10.4); MONO % 4.5 %; NEUT % 80.2 %; PLATELET COUNT 156 K/uL (130-400); RED BLOOD COUNT 3.52 M/uL (4.2-5.4); WHITE BLOOD COUNT 8.49 K/uL (4.8-10.8)
[2017-04-28 06:39] LABS: INR 1.3 (0.9-1.1); PARTIAL THROMBOPLASTIN RATIO 1.5; PROTHROMBIN TIME (PATIENT) 13.5 SECONDS (9.0-12.0)
[2017-04-28 07:04] LABS: BUN/CREATININE RATIO 20.3 (10-20); CALCIUM 9.7 mg/dl (8.5-10.1); CREATININE 0.95 mg/dl (0.60-1.20); POTASSIUM 3.4 mmol/L (3.5-5.1)
[2017-04-28] MEDS: BUDESONIDE 0.5 MG/2 ML VIAL (PULMICORT) INH SCH ×2 (07:11→19:04)
[2017-04-28] MEDS: METOPROLOL SUCC 50MG EXT REL TAB PO SCH ×2 (07:45→21:15)
[2017-04-28] MEDS: LOSARTAN POTASSIUM 50 MG TAB PO SCH ×2 (07:46→21:15)
[2017-04-28] MEDS: DABIGATRAN ELEXILATE 75 MG CAP PO SCH ×2 (07:46→21:15)
[2017-04-28] MEDS: DILTIAZEM HCL (TIAzac) 180 MG CAPCR PO SCH ×2 (07:46→21:15)
[2017-04-28] MEDS: INSULIN GLARGINE SOLOSTAR 100 UNITS/ML 3 ML PEN SC SCH ×2 (07:54→21:18)
--- NOTE | 2017-04-28 10:54 | Family Medicine Progress Note ---
Progress Note Date of Service Apr 28, 2017. Subjective Pt evaluation today including: conversation w/ patient, conversation w/ family , physical exam, chart review, lab review, review of studies, review of inpatient medication list Pain: denies pain PO Intake: adequate Voiding: no voiding problems Overnight, patient was on BIPAP, resp reduced to FIO2@ to 50%. BY 7:30 AM, She was taken off BIPAP and weened to high flow O2. , Per patient, Shortness of breath has improved, She denies CP, fevers, chills, N/V Constitutional: No fever, No chills Respiratory: + shortness of breath (improved), No wheezing Cardiovascular: No chest pain Abdomen: No pain, No nausea, No vomiting Musculoskeletal: No swelling, No calf pain Female : No dysuria, No urinary frequency Neurologic: No numbness/tingling Skin: No rash, No itch Medications Current Inpatient Medications Medications (Trade) Dose Ordered Sig/Paul Route Start Time Stop Time Status Last Admin Dose Admin Ioversol (Optiray 320) 100 ml UD PRN IV 04/26/17 20:30 04/30/17 20:29 Acetaminophen (Tylenol Tab) 650 mg Q4H PRN PO 04/26/17 22:45 05/26/17 22:44 04/28/17 00:07 650 MG Nitroglycerin (Nitrostat Tab) 0.4 mg UD PRN SL 04/26/17 22:45 05/26/17 22:44 Dabigatran (Pradaxa Cap) 150 mg BID PO 04/27/17 09:00 05/27/17 08:59 04/28/17 07:46 150 MG Diltiazem HCl (TIAzac CAP) 180 mg BID PO 04/27/17 09:00 05/27/17 08:59 04/28/17 07:46 180 MG Levothyroxine Sodium (Synthroid Tab) 50 mcg DAILYBB PO 04/27/17 06:00 05/27/17 06:59 04/28/17 05:35 50 MCG Losartan Potassium (coZAAR TAB) 50 mg BID PO 04/27/17 09:00 05/27/17 08:59 04/28/17 07:46 50 MG Metoprolol Succinate (Toprol Xl Tab) 100 mg BID PO 04/27/17 09:00 05/27/17 08:59 7/1/17 07:45 100 MG Pravastatin Sodium (Pravachol Tab) 80 mg DAILY@17 PO 04/27/17 17:00 05/27/17 16:59 04/27/17 16:59 80 MG Aztreonam 2000 mg/ Dextrose 110 ml @ 100 mls/hr Q8H IV 04/27/17 01:00 05/04/17 00:59 04/28/17 08:32 100 MLS/HR Levofloxacin 500 mg/Prmx 100 ml @ 100 mls/hr Q24H IV 04/27/17 01:30 05/04/17 01:29 04/28/17 01:10 100 MLS/HR Ondansetron HCl (Zofran Inj) 4 mg Q6H PRN IV 04/26/17 22:45 05/26/17 22:44 Glucose (Glucose 40% Gel) UD PRN PO 04/26/17 22:45 05/26/17 22:44 Glucose (Glucose Chew Tab) 1 tabs UD PRN PO 04/26/17 22:45 05/26/17 22:44 Dextrose (Dextrose 50% 50ML Syringe) 50 ml UD PRN IV 04/26/17 22:45 05/26/17 22:44 Glucagon (Glucagon Inj) 1 mg UD PRN SQ 04/26/17 22:45 05/26/17 22:44 Budesonide (Pulmicort Respules 0.5MG/ 2ML Neb Soln) 0.5 mg BIDR INH 04/27/17 08:00 05/27/17 07:59 04/28/17 07:11 0.5 MG Vancomycin HCl (Consult) 1 ea UD PRN N/A 04/26/17 23:30 05/26/17 23:29 Ipratropium [place] (Atrovent 0.02% 0.5MG/2.5ML Neb) 0.5 mg Q6R INH 04/27/17 03:00 05/27/17 02:59 04/28/17 07:11 0.5 MG Levalbuterol (Xopenex 1.25MG/ 0.5ML Neb) 1.25 mg Q6R INH 04/27/17 03:00 05/27/17 02:59 04/28/17 07:11 1.25 MG Ipratropium [place] (Atrovent 0.02% 0.5MG/2.5ML Neb) 0.5 mg Q2H PRN INH 04/27/17 00:45 05/27/17 00:44 Levalbuterol (Xopenex 1.25MG/ 0.5ML Neb) 1.25 mg Q2H PRN INH 04/27/17 00:45 05/27/17 00:44 Vancomycin HCl 1000 mg/Sodium Chloride 270 ml @ 125 mls/hr Q18H IV 04/27/17 18:00 05/04/17 17:59 04/27/17 18:25 125 MLS/HR Miscellaneous Information (Consult Glycemic Management Pharmacy) 1 ea UD PRN N/A 04/27/17 12:52 05/27/17 12:51 Insulin Glargine (Lantus Solostar Pen) BID SC 04/27/17 21:00 05/27/17 20:59 04/28/17 07:54 10 UNITS Insulin Aspart (novoLOG ASPART) SLIDING SCALE If C... ACHS SC 04/27/17 21:00 05/27/17 20:59 04/28/17 07:53 3 UNITS Objective Vital Signs Date Time Temp Pulse Resp B/P (MAP) Pulse Ox O2 Delivery O2 Flow Rate FiO2 04/28/17 11:45 37.1 98 23 106/61 (76) 95 04/28/17 08:00 92 High Flow Oxygen 65 04/28/17 07:31 36.6 105 21 124/75 (91) 100 BiPAP 04/28/17 07:12 115 95 50 04/28/17 07:11 116 17 95 BiPAP/CPAP 50 04/28/17 04:00 96 BiPAP 50 04/28/17 03:51 95 50 04/28/17 03:40 36.0 109 24 98/67 (77) 100 BiPAP 70 04/28/17 01:34 103 98 90 04/28/17 01:33 103 24 98 BiPAP/CPAP 90 04/27/17 23:59 96 BiPAP 90 04/27/17 23:22 37.3 105 28 116/66 (83) 96 BiPAP 90 04/27/17 20:00 82 BiPAP 04/27/17 20:00 Room Air 04/27/17 19:29 36.6 118 22 128/76 (93) 94 BiPAP 04/27/17 19:26 120 94 100 04/27/17 19:17 120 26 94 BiPAP/CPAP 100 04/27/17 16:00 82 BiPAP 04/27/17 15:25 37.5 105 22 131/70 (90) 93 CPAP Physical Exam General Appearance: WD/WN, no apparent distress Eyes: PERRL, EOMI Neck: supple, no carotid bruits, trachea midline Respiratory/Chest: no respiratory distress, no accessory muscle use, + decreased breath sounds, + pertinent finding (no wheezing, no rhonchi) Cardiovascular: no murmur, + irregularly irregular Abdomen: normal bowel sounds Extremities: no pedal edema, no calf tenderness Neurologic/Psychiatric: alert, normal mood/affect, oriented x 3 Skin: normal color, warm/dry Laboratory Results Results Past 24 Hours Test 04/27/17 12:27 04/27/17 16:00 04/27/17 16:12 04/27/17 16:17 Range/Units Bedside Glucose 274 267 70-90 mg/dl Erythrocyte Sedimentation Rate 54 0-21 mm/hr Procalcitonin 0.30 0-0.5 ng/ml Cyclic Citrullinated Peptide IgG Ab < 0.40 0-4.99 U/mL C-Reactive Protein 18.90 0-0.29 mg/dl Test 04/27/17 20:37 04/28/17 00:04 04/28/17 03:38 04/28/17 05:44 Range/Units Bedside Glucose 232 147 139 70-90 mg/dl White Blood Count 8.49 4.8-10.8 K/uL Red Blood Count 3.52 4.2-5.4 M/uL Hemoglobin 10.5 12.0-16.0 g/dL Hematocrit 31.5 37-47 % Mean Corpuscular Volume 89.5 80-100 fL Mean Corpuscular Hemoglobin 29.8 25-34 pg Mean Corpuscular Hemoglobin Concent 33.3 32-36 g/dl Platelet Count 156 130-400 K/uL Mean Platelet Volume 10.8 7.4-10.4 fL Neutrophils (%) (Auto) 80.2 % Lymphocytes (%) (Auto) 13.9 % Monocytes (%) (Auto) 4.5 % Eosinophils (%) (Auto) 0.8 % Basophils (%) (Auto) 0.2 % Neutrophils # (Auto) 6.81 1.4-6.5 K/uL Lymphocytes # (Auto) 1.18 1.2-3.4 K/uL Monocytes # (Auto) 0.38 0.11-0.59 K/uL Eosinophils # (Auto) 0.07 0-0.5 K/uL Basophils # (Auto) 0.02 0-0.2 K/uL RDW Standard Deviation 48.9 36.4-46.3 fL RDW Coefficient of Variation 14.9 11.5-14.5 % Immature Granulocyte % (Auto) 0.4 % Immature Granulocyte # (Auto) 0.03 0.00-0.02 K/uL Prothrombin Time 13.5 9.0-12.0 SECONDS Prothromb Time International Ratio 1.3 0.9-1.1 Activated Partial Thromboplast Time 40.3 21.0-31.0 SECONDS Partial Thromboplastin Ratio 1.5 Sodium Level 136 136-145 mmol/L Potassium Level 3.4 3.5-5.1 mmol/L Chloride Level 103 98-107 mmol/L Carbon Dioxide Level 25 21-32 mmol/L Anion Gap 8.0 3-11 mmol/L Blood Urea Nitrogen 19 7-18 mg/dl Creatinine 0.95 0.60-1.20 mg/dl Est Creatinine Clear Calc Drug Dose 51.1 ml/min Estimated GFR () 66.5 Estimated GFR (Non- 57.4 BUN/Creatinine Ratio 20.3 10-20 Random Glucose 145 70-99 mg/dl Calcium Level 9.7 8.5-10.1 mg/dl Magnesium Level 2.0 1.8-2.4 mg/dl Test 04/28/17 07:10 04/28/17 09:08 04/28/17 11:04 Range/Units Bedside Glucose 125 262 70-90 mg/dl 25-Hydroxy Vitamin D Total 22.5 30-100 ng/ml Parathyroid Hormone (Intact) 29.7 11.1-79.5 pg/mL Microbiology Results 04/27/17 MRSA DNA Surveillance Screen - Final, Complete Specimen Negative for MRSA by DNA Probe Assessment and Plan 77 yo F p/w SOB admitted with Acute Hypoxic Resp/ Failure in the setting of Multifocal Pneumonia,afebrile, clinically improving, weened from BIPAP to high flow oxygen, currently on Levofloxacin and Aztreonam Acute Hypoxic Resp. failure -BIPAP overnight-->switched to High Flow (7:30 AM) --Clinically improved ,Saturating well, mildly tachypneic this AM - likely secondary to PNA, although vasculitis, Connective tissue should be ruled out c/w Vanc, Levaquin, Aztreonam, -Pulmonology on board: -labs pending to r/o Vasculitis, Connective tissue disease -also has hx of asbestos exposure, will need CT, PFT's Suspected Aspiration - possible aspiration per nursing -S/p Speech eval -no overt aspiration seen on eval. -Dental soft thin liquids recommended Leukocytosis - resolved -WBC 8.49 H/H stable Anemia 10.5-->10.8 continue to monitor Hypokalemia: k 3.4 - Given 20 meq oral K Hypercalecemia -resolved -F/U PTH, Vit D RUL Nodule, Hx of Asbestos exposure will likely need further CT, outpatient PFTS DM - Glucose: 125 -glycemic consult Afib, asx remains in Afib c/w Pradaxa, Diltiazem PO 100 BID, Metoprolol PO100 mg BID Lasix remains held Hypothyroidism -c/w Synthroid HLD: - c/w Pravastatin DVT Proph - already on Pradaxa DM - Glucose: 125 Discharge planning: home Resident Tracking Resident Involvement: Resident Care Provided Care Provided: Adult Hospital Medicine Reviewed: Pt Seen/Exam by Me History breathing better. was on bipap at night. switched to high flow O2 during the day Constitutional: denies: fever Respiratory: negative: short of breath Cardiovascular: denies chest pain General Appearance: no apparent distress Respiratory: decreased breath sounds, other (no respiratory distress on high flow O2) Cardiovascular: regular rate, rhythm Gastrointestinal: normal bowel sounds, non tender, soft Neurologic/Psychiatric: alert, oriented x 3 Skin Characteristics: warm/dry Assessment/Plan Resident Physician Supervision Note: I was present with Dr. Valdez in bedside. I verified the robbins history and physical, reviewed labs and image studies, discussed the case with the resident and agree with the findings and care plan.
[2017-04-28] MEDS ORDERED: POTASSIUM CHLORIDE 10 MEQ TABCR PO STA (12:07)
[2017-04-28] MEDS ORDERED: INSULIN GLARGINE SOLOSTAR 100 UNITS/ML 3 ML PEN SC ONE (12:30)
[2017-04-28] MEDS: VANCOMYCIN INJ 1,000 MG in SODIUM CHLORIDE 0.9% 250ML 250 ML IV SCH (12:43)
--- NOTE | 2017-04-28 13:26 | Pulmonology Progress Note ---
Pulmonary Progress Note Date of Service Apr 28, 2017. Attending Dr. ashby Subjective The patient is generally feeling somewhat better. She is less short of breath than she had been. Last night however she needed to have the BiPAP. She had desaturated after they took the BiPAP off and placed her on high flow oxygen. 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 The high flow is currently set at 65% FiO2. She is not having much cough. She has no chest pains. Patient states her appetite is good. She initially had some diarrhea but that has resolved. She is not having any pain. Objective The patient appears comfortable at rest. She is afebrile with a temperature of 37.1. Her highest temperature since admission was 38.4. Eye exam showed implants. Nasal passages were clear. Mouth exam showed no significant findings. Dentures were noted. Palpation of the neck reveals no lymph nodes. Her neck veins are modestly distended even with the patient somewhat elevated. The chest shows mild kyphosis. The heart rate is 98/m. The rhythm is regular. The blood pressure is 106/61. Auscultation revealed Rales at the right lower lung field posteriorly. Elsewhere the breath sounds were diminished. Her saturation on 65% oxygen was 87% at the time of my exam. However she didn't have the high flow in exactly right. It had been 93% earlier. Her respiratory rate was 23 breaths per minute. The abdomen was soft and nontender. Bowel sounds were normal. Extremities showed no significant edema. There was no cyanosis or clubbing. CBC today shows white count of 8.49. It had been 16.49 on admission. Hemoglobin today is 10.5 and it had been 13. Platelets today are 156,000, had been 249,000. The INR today is 1.3. PTT was 40.3. Liver functions were unremarkable. Assessment & Plan 1 bilateral pneumonia 2 CHF-diastolic 3 small pleural effusion 4 severe hypoxemia with shunt Comments: The patient is somewhat improved. Her symptoms progressed very rapidly this week. I saw her in my office on April 23. Her oxygen levels at that time were in the 90s. We did a 6 minute walk and it was unremarkable. There was no drop in her oxygen saturations. Although she's had a complaint of shortness of breath for several months she had an acute episode this week. She describes having chills fevers and sweats at home. She's had a high white count. The x-ray would correlate with pneumonia. I believe she may have some degree of CHF as well. She sees Dr. Turner of the cardiology division and he has been treating her for diastolic heart failure. For now we'll continue with the high flow oxygen but will use BiPAP if need be. She is on the nebulizer treatments with albuterol, ipratropium, and budesonide. Her antibiotics include vancomycin, levofloxacin, and aztreonam. We'll likely repeat a chest x-ray on April 30. I could not find with certainty that a Legionella antigen was ordered and we will do that in light of her history of diarrhea. Data Medications: Current Inpatient Medications Medications (Trade) Dose Ordered Sig/Paul Route Start Time Stop Time Status Last Admin Dose Admin Ioversol (Optiray 320) 100 ml UD PRN IV 04/26/17 20:30 04/30/17 20:29 Acetaminophen (Tylenol Tab) 650 mg Q4H PRN PO 04/26/17 22:45 05/26/17 22:44 04/28/17 00:07 650 MG Nitroglycerin (Nitrostat Tab) 0.4 mg UD PRN SL 04/26/17 22:45 05/26/17 22:44 Dabigatran (Pradaxa Cap) 150 mg BID PO 04/27/17 09:00 05/27/17 08:59 04/28/17 07:46 150 MG Diltiazem HCl (TIAzac CAP) 180 mg BID PO 04/27/17 09:00 05/27/17 08:59 04/28/17 07:46 180 MG Levothyroxine Sodium (Synthroid Tab) 50 mcg DAILYBB PO 04/27/17 06:00 05/27/17 06:59 04/28/17 05:35 50 MCG Losartan Potassium (coZAAR TAB) 50 mg BID PO 04/27/17 09:00 05/27/17 08:59 04/28/17 07:46 50 MG Metoprolol Succinate (Toprol Xl Tab) 100 mg BID PO 04/27/17 09:00 05/27/17 08:59 04/28/17 07:45 100 MG Pravastatin Sodium (Pravachol Tab) 80 mg DAILY@17 PO 04/27/17 17:00 05/27/17 16:59 04/27/17 16:59 80 MG Aztreonam 2000 mg/ Dextrose 110 ml @ 100 mls/hr Q8H IV 04/27/17 01:00 05/04/17 00:59 04/28/17 08:32 100 MLS/HR Levofloxacin 500 mg/Prmx 100 ml @ 100 mls/hr Q24H IV 04/27/17 01:30 05/04/17 01:29 04/28/17 01:10 100 MLS/HR Ondansetron HCl (Zofran Inj) 4 mg Q6H PRN IV 04/26/17 22:45 05/26/17 22:44 Glucose (Glucose 40% Gel) UD PRN PO 04/26/17 22:45 05/26/17 22:44 Glucose (Glucose Chew Tab) 1 tabs UD PRN PO 04/26/17 22:45 05/26/17 22:44 Dextrose (Dextrose 50% 50ML Syringe) 50 ml UD PRN IV 04/26/17 22:45 05/26/17 22:44 Glucagon (Glucagon Inj) 1 mg UD PRN SQ 04/26/17 22:45 05/26/17 22:44 Budesonide (Pulmicort Respules 0.5MG/ 2ML Neb Soln) 0.5 mg BIDR INH 04/27/17 08:00 05/27/17 07:59 04/28/17 07:11 0.5 MG Vancomycin HCl (Consult) 1 ea UD PRN N/A 04/26/17 23:30 05/26/17 23:29 Ipratropium [place] (Atrovent 0.02% 0.5MG/2.5ML Neb) 0.5 mg Q6R INH 04/27/17 03:00 05/27/17 02:59 04/28/17 07:11 0.5 MG Levalbuterol (Xopenex 1.25MG/ 0.5ML Neb) 1.25 mg Q6R INH 04/27/17 03:00 05/27/17 02:59 04/28/17 07:11 1.25 MG Ipratropium [place] (Atrovent 0.02% 0.5MG/2.5ML Neb) 0.5 mg Q2H PRN INH 04/27/17 00:45 05/27/17 00:44 Levalbuterol (Xopenex 1.25MG/ 0.5ML Neb) 1.25 mg Q2H PRN INH 04/27/17 00:45 05/27/17 00:44 Vancomycin HCl 1000 mg/Sodium Chloride 270 ml @ 125 mls/hr Q18H IV 04/27/17 18:00 05/04/17 17:59 04/28/17 12:43 125 MLS/HR Miscellaneous Information (Consult Glycemic Management Pharmacy) 1 ea UD PRN N/A 04/27/17 12:52 05/27/17 12:51 Insulin Glargine (Lantus Solostar Pen) BID SC 04/27/17 21:00 05/27/17 20:59 04/28/17 07:54 10 UNITS Insulin Aspart (novoLOG ASPART) SLIDING SCALE If C... ACHS SC 04/27/17 21:00 05/27/17 20:59 04/28/17 12:46 4 UNITS Vital Signs: Date Time Temp Pulse Resp B/P (MAP) Pulse Ox O2 Delivery O2 Flow Rate FiO2 04/28/17 12:00 93 High Flow Oxygen 50.0 65 04/28/17 11:45 37.1 98 23 106/61 (76) 95 04/28/17 08:00 92 High Flow Oxygen 65 04/28/17 07:31 36.6 105 21 124/75 (91) 100 BiPAP 04/28/17 07:12 115 95 50 04/28/17 07:11 116 17 95 BiPAP/CPAP 50 04/28/17 04:00 96 BiPAP 50 04/28/17 03:51 95 50 04/28/17 03:40 36.0 109 24 98/67 (77) 100 BiPAP 70 04/28/17 01:34 103 98 90 04/28/17 01:33 103 24 98 BiPAP/CPAP 90 04/27/17 23:59 96 BiPAP 90 04/27/17 23:22 37.3 105 28 116/66 (83) 96 BiPAP 90 04/27/17 20:00 82 BiPAP 04/27/17 20:00 Room Air 04/27/17 19:29 36.6 118 22 128/76 (93) 94 BiPAP 04/27/17 19:26 120 94 100 04/27/17 19:17 120 26 94 BiPAP/CPAP 100 04/27/17 16:00 82 BiPAP 04/27/17 15:25 37.5 105 22 131/70 (90) 93 CPAP Laboratory Results: Last 24 Hours Test 04/27/17 16:00 04/27/17 16:12 04/27/17 16:17 04/27/17 20:37 Erythrocyte Sedimentation Rate 54 mm/hr Procalcitonin 0.30 ng/ml Cyclic Citrullinated Peptide IgG Ab < 0.40 U/mL Bedside Glucose 267 mg/dl 232 mg/dl C-Reactive Protein 18.90 mg/dl Test 04/28/17 00:04 04/28/17 03:38 04/28/17 05:44 04/28/17 07:10 Bedside Glucose 147 mg/dl 139 mg/dl 125 mg/dl White Blood Count 8.49 K/uL Red Blood Count 3.52 M/uL Hemoglobin 10.5 g/dL Hematocrit 31.5 % Mean Corpuscular Volume 89.5 fL Mean Corpuscular Hemoglobin 29.8 pg Mean Corpuscular Hemoglobin Concent 33.3 g/dl Platelet Count 156 K/uL Mean Platelet Volume 10.8 fL Neutrophils (%) (Auto) 80.2 % Lymphocytes (%) (Auto) 13.9 % Monocytes (%) (Auto) 4.5 % Eosinophils (%) (Auto) 0.8 % Basophils (%) (Auto) 0.2 % Neutrophils # (Auto) 6.81 K/uL Lymphocytes # (Auto) 1.18 K/uL Monocytes # (Auto) 0.38 K/uL Eosinophils # (Auto) 0.07 K/uL Basophils # (Auto) 0.02 K/uL RDW Standard Deviation 48.9 fL RDW Coefficient of Variation 14.9 % Immature Granulocyte % (Auto) 0.4 % Immature Granulocyte # (Auto) 0.03 K/uL Prothrombin Time 13.5 SECONDS Prothromb Time International Ratio 1.3 Activated Partial Thromboplast Time 40.3 SECONDS Partial Thromboplastin Ratio 1.5 Sodium Level 136 mmol/L Potassium Level 3.4 mmol/L Chloride Level 103 mmol/L Carbon Dioxide Level 25 mmol/L Anion Gap 8.0 mmol/L Blood Urea Nitrogen 19 mg/dl Creatinine 0.95 mg/dl Est Creatinine Clear Calc Drug Dose 51.1 ml/min Estimated GFR () 66.5 Estimated GFR (Non- 57.4 BUN/Creatinine Ratio 20.3 Random Glucose 145 mg/dl Calcium Level 9.7 mg/dl Magnesium Level 2.0 mg/dl Test 04/28/17 09:08 04/28/17 11:04 25-Hydroxy Vitamin D Total 22.5 ng/ml Parathyroid Hormone (Intact) 29.7 pg/mL Bedside Glucose 262 mg/dl
--- NOTE | 2017-04-28 14:46 | Pharmacy Progress Note ---
Glycemic Control Progress Note Date of Service Apr 28, 2017. Scope Glycemic Pharmacist consulted for glycemic control to write orders per [facility] inpatient glycemic control protocol. Objective Accuchecks BSG (last 24hrs): Test 04/27/17 16:12 04/27/17 20:37 04/28/17 00:04 04/28/17 03:38 Bedside Glucose 267 mg/dl (70-90) 232 mg/dl (70-90) 147 mg/dl (70-90) 139 mg/dl (70-90) Test 04/28/17 05:44 04/28/17 07:10 04/28/17 11:04 Random Glucose 145 mg/dl (70-99) Bedside Glucose 125 mg/dl (70-90) 262 mg/dl (70-90) Recent Pertinent Medications The patient is currently receiving: * Basal insulin with LANTUS SQ BID based on BSG * 0 units for BSG < 100 * 10 units for BSG 100-139 mg/dL * 20 units for BSG 140-200 mg/dL * 30 units for BSG >200 mg/dL * Correctional Insulin: Novolog Correction per scale ACHS Goal Range: Low 110 mg/dL - High 150 mg/dL Correction Factor: 25 mg/dL/unit * Prandial insulin: Per carb ratio of 1 unit per 8 grams CHO consumed Outpatient Anti-Diabetic Meds Toujeo 32 units SQ BID Assessment & Plan ASSESSMENT: * See progress note from 04/27/17 for more background info, in short: * Pt receiving SQ basal bolus insulin regimen for hyperglycemia secondary to baseline DM (outpatient regimen on hold),stress/infection. * Patient is currently receiving an average of 84 units of insulin per day * 62 units of basal insulin * 22 units of prandial/correctional insulin * BSGs ranging 125 - 267 mg/dl over the past 24hrs * Changes needed to insulin regimen: * AM Fasting BSG = 125 mg/dl. This is at goal range for patient based on inpatient targets and co-morbidities, but patient only received 10 units of Lantus this AM for lantus dosing parameters, so I will change these parameters so that patient receives more Lantus for BSG at goal, and give supplemental dose now, as 10 units will not be enough for a TDD of 84units/day. * Post-prandial BSGs are elevated/BSGs rise throughout the day therefore need to tighten CF/CR PLAN FOR INPATIENT GLYCEMIC CONTROL: * Basal insulin with LANTUS SQ BID based on BSG, and supplemental 10 units SQ x 1 dose now to make AM dose = 20 units * 0 units for BSG < 100 * 20 units for BSG 100-200 mg/dL * 30 units for BSG >200 mg/dL * Bolus insulin * NovoLog per scale ACHS or Q6hrs while NPO * Goal Range: Low 110 mg/dL - High 150 mg/dL * TIGHTEN: Correction Factor: 20 mg/dL/unit * TIGHTEN: Nutritional / Prandial insulin per carb ratio of 1 unit per 7 grams CHO consumed RECOMMENDATIONS FOR DISCHARGE: * Continue Toujeo 32 units SQ BID, A1c at goal. * Please note that the plan above was derived based on current level of insulin resistance and hospital stress. These recommendations are appropriate for inpatient admission only. Plan of care upon discharge will need to be reassessed to avoid potential outpatient hypo/hyperglycemia. Thank you.
[2017-04-28] MEDS: PRAVASTATIN SOD 40 MG TAB PO SCH (17:03)
[2017-04-28] MEDS ORDERED: INSULIN HUMAN REGULAR PER UNIT 5 UNITS in SYRINGE 4.95 ML IV SCH (21:00)
[2017-04-29] VITALS (18 sets, daily range): BP systolic 102–130; BP diastolic 55–80; PULSE 70–109; TEMP 36.2–38; O2SAT 90–99
[2017-04-29] MEDS: AZTREONAM IV 2,000 MG in DEXTROSE 5% 100ML 100 ML IV SCH ×3 (01:18→16:46)
[2017-04-29] MEDS: LEVOFLOXACIN / D5W 500 MG in PREMIXED IN D5W 100 ML IV SCH (01:19)
[2017-04-29] MEDS: IPRATROPIUM BROMIDE NEB SOLN 0.02% 2.5 ML VIAL INH SCH ×4 (01:49→19:14)
[2017-04-29] MEDS: LEVALBUTEROL 1.25MG/0.5ML NEB INH SCH ×4 (01:49→19:14)
[2017-04-29] MEDS ORDERED: INSULIN ASPART 100 UNITS/ML 3 ML PEN SC SCH (02:00)
[2017-04-29 04:19] LABS: URINE PROTIEN/CREAT RATIO 0.8 (0-0.2); URINE TOTAL PROTEIN 89.4 mg/dl (0-11.9)
[2017-04-29] MEDS ORDERED: VANCOMYCIN TROUGH SCH (05:30)
[2017-04-29] MEDS: VANCOMYCIN INJ 1,000 MG in SODIUM CHLORIDE 0.9% 250ML 250 ML IV SCH (05:35)
[2017-04-29] MEDS: LEVOTHYROXINE 50 MCG TAB PO SCH (05:36)
[2017-04-29 06:11] LABS: BASO % 0.1 %; BASO ABS # 0.01 K/uL (0-0.2); COMPLETE YES; EOS % 1.8 %; HEMATOCRIT 28.1 % (37-47); IG% 0.3 %; LYMPH % 16.9 %; LYMPH ABS # 1.25 K/uL (1.2-3.4); MEAN CELL VOLUME 88.6 fL (80-100); MEAN CORPUSCULAR HGB CONC 33.8 g/dl (32-36); MEAN PLATELET VOLUME 10.6 fL (7.4-10.4); MONO % 6.8 %; NEUT % 74.1 %; PLATELET COUNT 160 K/uL (130-400); RED BLOOD COUNT 3.17 M/uL (4.2-5.4); WHITE BLOOD COUNT 7.38 K/uL (4.8-10.8)
[2017-04-29 06:41] LABS: BUN/CREATININE RATIO 26.6 (10-20); CALCIUM 9.4 mg/dl (8.5-10.1); CREATININE 0.76 mg/dl (0.60-1.20); POTASSIUM 3.7 mmol/L (3.5-5.1)
[2017-04-29 06:46] LABS: INR 1.2 (0.9-1.1); PARTIAL THROMBOPLASTIN RATIO 1.8; PROTHROMBIN TIME (PATIENT) 13.4 SECONDS (9.0-12.0)
[2017-04-29] MEDS: BUDESONIDE 0.5 MG/2 ML VIAL (PULMICORT) INH SCH ×2 (07:12→19:14)
[2017-04-29] MEDS: INSULIN ASPART 100 UNITS/ML 3 ML PEN SC SCH ×4 (08:46→21:03)
[2017-04-29] MEDS: METOPROLOL SUCC 50MG EXT REL TAB PO SCH ×2 (08:49→21:01)
[2017-04-29] MEDS: DABIGATRAN ELEXILATE 75 MG CAP PO SCH ×2 (08:50→21:01)
[2017-04-29] MEDS: DILTIAZEM HCL (TIAzac) 180 MG CAPCR PO SCH ×2 (08:50→21:01)
[2017-04-29] MEDS: LOSARTAN POTASSIUM 50 MG TAB PO SCH ×2 (08:50→21:02)
[2017-04-29] MEDS: INSULIN GLARGINE SOLOSTAR 100 UNITS/ML 3 ML PEN SC SCH ×2 (08:59→21:02)
--- NOTE | 2017-04-29 11:45 | Family Medicine Progress Note ---
Progress Note Date of Service Apr 29, 2017. Subjective Pt evaluation today including: conversation w/ patient, physical exam, chart review, lab review, review of studies, review of inpatient medication list Pain: denies pain PO Intake: not eating while on BIPAP Voiding: no voiding problems Patient remained in Afib overnight with HR in the low 100's . She required BIPAP throughout the night and is only maintaining saturation btw 90-93%. Pt complains of dry cugh,. She denies N/V, CP, Fevers, chills Constitutional: No fever, No chills Respiratory: + cough, + shortness of breath, No sputum, No wheezing Cardiovascular: No chest pain, No edema, No claudication, No palpitations Abdomen: No pain, No nausea, No vomiting, No diarrhea, No constipation Female : No dysuria, No urinary frequency, No hematuria Skin: No rash, No itch Medications Current Inpatient Medications Medications (Trade) Dose Ordered Sig/Paul Route Start Time Stop Time Status Last Admin Dose Admin Ioversol (Optiray 320) 100 ml UD PRN IV 04/26/17 20:30 04/30/17 20:29 Acetaminophen (Tylenol Tab) 650 mg Q4H PRN PO 04/26/17 22:45 05/26/17 22:44 04/28/17 21:19 650 MG Nitroglycerin (Nitrostat Tab) 0.4 mg UD PRN SL 04/26/17 22:45 05/26/17 22:44 Dabigatran (Pradaxa Cap) 150 mg BID PO 04/27/17 09:00 05/27/17 08:59 04/29/17 08:50 150 MG Diltiazem HCl (TIAzac CAP) 180 mg BID PO 04/27/17 09:00 05/27/17 08:59 04/29/17 08:50 180 MG Levothyroxine Sodium (Synthroid Tab) 50 mcg DAILYBB PO 04/27/17 06:00 05/27/17 06:59 04/29/17 05:36 50 MCG Losartan Potassium (coZAAR TAB) 50 mg BID PO 04/27/17 09:00 05/27/17 08:59 04/29/17 08:50 50 MG Metoprolol Succinate (Toprol Xl Tab) 100 mg BID PO 04/27/17 09:00 05/27/17 08:59 04/29/17 08:49 100 MG Pravastatin Sodium (Pravachol Tab) 80 mg DAILY@17 PO 04/27/17 17:00 05/27/17 16:59 04/28/17 17:03 80 MG Aztreonam 2000 mg/ Dextrose 110 ml @ 100 mls/hr Q8H IV 04/27/17 01:00 05/04/17 00:59 04/29/17 08:57 100 MLS/HR Levofloxacin 500 mg/Prmx 100 ml @ 100 mls/hr Q24H IV 04/27/17 01:30 05/04/17 01:29 04/29/17 01:19 100 MLS/HR Ondansetron HCl (Zofran Inj) 4 mg Q6H PRN IV 04/26/17 22:45 05/26/17 22:44 Glucose (Glucose 40% Gel) UD PRN PO 04/26/17 22:45 05/26/17 22:44 Glucose (Glucose Chew Tab) 1 tabs UD PRN PO 04/26/17 22:45 05/26/17 22:44 Dextrose (Dextrose 50% 50ML Syringe) 50 ml UD PRN IV 04/26/17 22:45 05/26/17 22:44 Glucagon (Glucagon Inj) 1 mg UD PRN SQ 04/26/17 22:45 05/26/17 22:44 Budesonide (Pulmicort Respules 0.5MG/ 2ML Neb Soln) 0.5 mg BIDR INH 04/27/17 08:00 05/27/17 07:59 04/29/17 07:12 0.5 MG Vancomycin HCl (Consult) 1 ea UD PRN N/A 04/26/17 23:30 05/26/17 23:29 Ipratropium [place] (Atrovent 0.02% 0.5MG/2.5ML Neb) 0.5 mg Q6R INH 04/27/17 03:00 05/27/17 02:59 04/29/17 07:12 0.5 MG Levalbuterol (Xopenex 1.25MG/ 0.5ML Neb) 1.25 mg Q6R INH 04/27/17 03:00 05/27/17 02:59 04/29/17 07:12 1.25 MG Ipratropium [place] (Atrovent 0.02% 0.5MG/2.5ML Neb) 0.5 mg Q2H PRN INH 04/27/17 00:45 05/27/17 00:44 Levalbuterol (Xopenex 1.25MG/ 0.5ML Neb) 1.25 mg Q2H PRN INH 04/27/17 00:45 05/27/17 00:44 Miscellaneous Information (Consult Glycemic Management Pharmacy) 1 ea UD PRN N/A 04/27/17 12:52 05/27/17 12:51 Insulin Glargine (Lantus Solostar Pen) BID SC 04/27/17 21:00 05/27/17 20:59 04/29/17 08:59 10 UNITS Insulin Aspart (novoLOG ASPART) SLIDING SCALE If C... ACHS SC 04/27/17 21:00 05/27/17 20:59 04/29/17 11:39 10 UNITS Cholecalciferol (Vitamin D Tab) 1,000 inter.unit QAM PO 04/30/17 09:00 05/30/17 08:59 Vancomycin HCl 1250 mg/Sodium Chloride 275 ml @ 125 mls/hr Q14H IV 04/29/17 12:00 05/06/17 11:59 Objective Vital Signs Date Time Temp Pulse Resp B/P (MAP) Pulse Ox O2 Delivery O2 Flow Rate FiO2 04/29/17 08:00 93 BiPAP 65 04/29/17 07:44 37.4 105 22 115/65 (82) 94 BiPAP 04/29/17 07:13 103 96 80 04/29/17 07:12 103 33 96 BiPAP/CPAP 80 04/29/17 04:00 98 BiPAP 80 04/29/17 03:40 36.2 104 18 105/65 (78) 96 BiPAP 80 04/29/17 01:50 109 92 80 04/29/17 01:49 109 20 92 BiPAP/CPAP 80 04/29/17 00:00 98 BiPAP 80 04/28/17 23:17 36.4 103 22 110/66 (81) 90 BiPAP 80 04/28/17 21:44 113 90 80 04/28/17 20:00 91 High Flow Oxygen 50.0 80 04/28/17 19:09 110 20 90 Nasal Cannula 50.0 80 04/28/17 19:03 37.7 102 20 142/62 (88) 90 High Flow Oxygen 04/28/17 16:00 91 High Flow Oxygen 65 04/28/17 15:50 107 90 70 04/28/17 15:10 37.7 92 20 118/65 (82) 89 High Flow Oxygen 04/28/17 14:17 97 22 94 Nasal Cannula 65.0 65 04/28/17 12:00 93 High Flow Oxygen 50.0 65 Physical Exam General Appearance: WD/WN, + mild distress Eyes: PERRL, EOMI Neck: supple, no carotid bruits, trachea midline Respiratory/Chest: chest non-tender, normal breath sounds, no respiratory distress, + crackles (diffuse kacy), + pertinent finding (BIPAP in place) Cardiovascular: regular rate, rhythm, no edema, no JVD Abdomen: normal bowel sounds, non tender, soft Extremities: no pedal edema, no calf tenderness Neurologic/Psychiatric: alert, normal mood/affect Skin: warm/dry, no rash Laboratory Results Results Past 24 Hours Test 04/28/17 16:03 04/28/17 18:00 04/28/17 19:55 04/29/17 00:00 Range/Units Bedside Glucose 296 293 70-90 mg/dl Urine Collection Time 24 HOURS Urine Total Volume 900 mL Urine Calcium 24 Hour 90.0 42-353 mg/24 HR Urine Random Creatinine 110.0 mg/dl Urine Random Total Protein 89.4 0-11.9 mg/dl Urine Protein/Creatinine Ratio 0.8 0-0.2 Test 04/29/17 01:48 04/29/17 05:37 04/29/17 07:11 Range/Units Bedside Glucose 111 100 70-90 mg/dl White Blood Count 7.38 4.8-10.8 K/uL Red Blood Count 3.17 4.2-5.4 M/uL Hemoglobin 9.5 12.0-16.0 g/dL Hematocrit 28.1 37-47 % Mean Corpuscular Volume 88.6 80-100 fL Mean Corpuscular Hemoglobin 30.0 25-34 pg Mean Corpuscular Hemoglobin Concent 33.8 32-36 g/dl Platelet Count 160 130-400 K/uL Mean Platelet Volume 10.6 7.4-10.4 fL Neutrophils (%) (Auto) 74.1 % Lymphocytes (%) (Auto) 16.9 % Monocytes (%) (Auto) 6.8 % Eosinophils (%) (Auto) 1.8 % Basophils (%) (Auto) 0.1 % Neutrophils # (Auto) 5.47 1.4-6.5 K/uL Lymphocytes # (Auto) 1.25 1.2-3.4 K/uL Monocytes # (Auto) 0.50 0.11-0.59 K/uL Eosinophils # (Auto) 0.13 0-0.5 K/uL Basophils # (Auto) 0.01 0-0.2 K/uL RDW Standard Deviation 47.9 36.4-46.3 fL RDW Coefficient of Variation 14.6 11.5-14.5 % Immature Granulocyte % (Auto) 0.3 % Immature Granulocyte # (Auto) 0.02 0.00-0.02 K/uL Prothrombin Time 13.4 9.0-12.0 SECONDS Prothromb Time International Ratio 1.2 0.9-1.1 Activated Partial Thromboplast Time 47.6 21.0-31.0 SECONDS Partial Thromboplastin Ratio 1.8 Sodium Level 136 136-145 mmol/L Potassium Level 3.7 3.5-5.1 mmol/L Chloride Level 106 98-107 mmol/L Carbon Dioxide Level 23 21-32 mmol/L Anion Gap 7.0 3-11 mmol/L Blood Urea Nitrogen 20 7-18 mg/dl Creatinine 0.76 0.60-1.20 mg/dl Est Creatinine Clear Calc Drug Dose 64.4 ml/min Estimated GFR () 87.1 Estimated GFR (Non- 75.1 BUN/Creatinine Ratio 26.6 10-20 Random Glucose 102 70-99 mg/dl Calcium Level 9.4 8.5-10.1 mg/dl Magnesium Level 2.0 1.8-2.4 mg/dl Vancomycin Level Trough 8.7 SEE COMMENT mcg/ml Assessment and Plan 77 yo F p/w SOB admitted with Acute Hypoxic Resp/ Failure in the setting of Multifocal Pneumonia,afebrile, clinically improving, weened from BIPAP to high flow oxygen, currently on Levofloxacin and Aztreonam Acute Hypoxic Resp. failure -currently requiring BIPAP to maintain saturation. Wean to high flow if patient can tolerate - likely secondary to PNA, although vasculitis, Connective tissue should be ruled out c/w Vanc, Levaquin, Aztreonam, -Pulmonology on board: -labs pending to r/o Vasculitis, Connective tissue disease . Anti CCP negative -also has hx of asbestos exposure, will need CT, PFT's Suspected Aspiration -S/p Speech eval -no overt aspiration seen on eval. -c/w Dental soft thin liquids Leukocytosis - resolved -WBC 7.38 H/H stable Anemia 10.5-->10.8-->9.5 continue to monitor Dilution a likely contributor Hypokalemia: - resolved -follow bmps's Hypercalcemia -resolved -PTH wnl -continue to follow RUL Nodule, Hx of Asbestos exposure will likely need further CT, outpatient PFTS DM -glycemic consult Afib, asx remains in Afib c/w Pradaxa, Diltiazem PO 100 BID, Metoprolol PO100 mg BID Lasix remains held Hypothyroidism -c/w Synthroid HLD: - c/w Pravastatin DVT Proph - already on Pradaxa Continued [facility] stay due to: multiple IV medications needed Discharge planning: uncertain Resident Tracking Resident Involvement: Resident Care Provided Care Provided: Adult Hospital Medicine
[2017-04-29] MEDS: VANCOMYCIN INJ 1,250 MG in SODIUM CHLORIDE 0.9% 250ML 250 ML IV SCH (12:01)
--- NOTE | 2017-04-29 12:45 | DIAGNOSTIC IMAGING REPORT ---
SINGLE VIEW CHEST CLINICAL HISTORY: Hypoxia. FINDINGS: An AP, portable, upright chest radiograph is compared to chest x-ray and chest CT dated 04/26/2017. The examination is degraded by portable technique and patient rotation. The heart is enlarged and there is atherosclerotic calcification of the thoracic aorta. There is pulmonary vascular congestion with interstitial edema. There are layering pleural effusions with bibasilar consolidation. Masslike consolidation is again seen in the right upper lobe. No pneumothorax is seen. The skeletal structures are osteopenic. Advanced degenerative change is seen in the thoracic spine and shoulders. IMPRESSION: 1. Cardiomegaly with evidence of congestive failure and interstitial edema. This is similar in appearance to the 04/26/2017 examination. 2. Layering pleural effusions with bibasilar consolidation. Masslike consolidation is again seen in the right upper lobe. Correlate clinically for evidence of superimposed pneumonia. Radiographic follow-up to resolution is recommended. Electronically signed by: Kenan Oleary M.D. 04/29/2017 12:44 PM Dictated Date/Time: 04/29/2017 12:42 PM
--- NOTE | 2017-04-29 13:24 | Pharmacy Progress Note ---
Glycemic Control Progress Note Date of Service Apr 29, 2017. Scope Glycemic Pharmacist consulted for glycemic control to write orders per [facility] inpatient glycemic control protocol. Objective Accuchecks BSG (last 24hrs): Test 04/28/17 16:03 04/28/17 19:55 04/29/17 01:48 04/29/17 05:37 Bedside Glucose 296 mg/dl (70-90) 293 mg/dl (70-90) 111 mg/dl (70-90) Random Glucose 102 mg/dl (70-99) Test 04/29/17 07:11 04/29/17 11:18 Bedside Glucose 100 mg/dl (70-90) 215 mg/dl (70-90) Recent Pertinent Medications The patient is currently receiving: * Basal insulin with LANTUS SQ BID based on BSG * 0 units < 100 mg/dL * 20 units for BSG 100-200 mg/dL * 30 units for BSG >200 mg/dL * Correctional Insulin: Novolog Correction per scale ACHS Goal Range: Low 110 mg/dL - High 150 mg/dL Correction Factor: 20 mg/dL/unit * Prandial insulin: Per carb ratio of 1 unit per 7 grams CHO consumed Assessment & Plan ASSESSMENT: * See progress note from 04/27/17 for more background info, in short: * Pt receiving SQ basal bolus insulin regimen for hyperglycemia secondary to baseline DM (outpatient regimen on hold),stress/infection. * Patient is currently receiving an average of 79 units of insulin per day * 50 units of basal insulin * 29 units of prandial/correctional insulin * BSGs ranging 100 - 293 mg/dl over the past 24hrs * Changes needed to insulin regimen: * Blood sugars tina throughout the day yesterday into the evening requiring a dose of IV Regular insulin due to too low of a dose of AM Lantus, will further change Lantus dosing parameters so that patient should always receive 30 units BID (unless BSG < 100 or > 200). * Post-prandial BSGs are still slightly elevated therefore need to tighten CR PLAN FOR INPATIENT GLYCEMIC CONTROL: * Basal insulin with LANTUS SQ BID based on BSG * 10 units for BSG < 100 * 30 units for BSG 100-200 mg/dL * 35 units for BSG >200 mg/dL * Bolus insulin * NovoLog per scale ACHS or Q6hrs while NPO * Goal Range: Low 110 mg/dL - High 150 mg/dL * Correction Factor: 20 mg/dL/unit * TIGHTEN: Nutritional / Prandial insulin per carb ratio of 1 unit per 6 grams CHO consumed RECOMMENDATIONS FOR DISCHARGE: * Continue Toujeo 32 units SQ BID, A1c at goal. * Please note that the plan above was derived based on current level of insulin resistance and hospital stress. These recommendations are appropriate for inpatient admission only. Plan of care upon discharge will need to be reassessed to avoid potential outpatient hypo/hyperglycemia. Thank you.
--- NOTE | 2017-04-29 13:31 | Pulmonology Progress Note ---
Pulmonary Progress Note Date of Service Apr 29, 2017. Attending Dr. Cook Subjective The patient feels about the same as yesterday. She remains short of breath even at rest. She has required high flow oxygen. Currently she has been on 80 % FiO2. She did wear BiPAP overnight. Generally her saturations are a little better with BiPAP. She still has a cough. She has not expectorated any phlegm. She seemed a little more relaxed today. Objective The patient appeared comfortable at rest. She was cooperative alert and oriented. Temperature is 36.8. Earlier today her temperature was 37.4. The maximum temperature in the past 24 hours was 37.7. ENT exam was unchanged from yesterday and was generally unremarkable. The cardiac rate is 108. The blood pressure is 102/55. The rhythm is irregularly irregular. Auscultation of the lung ayala reveals Rales posteriorly greater on the right. Her respiratory rate was 26 breaths per minute. The oxygen saturation was 93% on the high flow oxygen. I was told by nursing that she was at 80%. The vital state it is showing 50% but I believe that might be her flow rate. The abdomen was soft and nontender. Extremities showed no cyanosis or clubbing. CBC today shows a white count of 7.38. Hemoglobin was 9.5. Platelets were 160, 000. Electrolytes today show sodium 136 potassium 3.7 quite 106 bicarbonate 23. Assessment & Plan 1 bilateral pneumonia 2 CHF-diastolic 3 small pleural effusion 4 severe hypoxemia with shunt The patient does not seem any better than yesterday. I had intended to do a chest x-ray tomorrow but I'm going to do it today instead. She remains on vancomycin, levofloxacin, and a history on him. She remains on her nebulizer treatments. We may have heard to BiPAP off and on during the day but try and wear it during the nighttime. Her prognosis remains very guarded based upon the lack of improvement so far. The patient does see Dr. Turner regularly from the cardiology department. Consideration is given to a cardiac consult for their views on the situation. We'll give a dose of Lasix. Data Medications: Current Inpatient Medications Medications (Trade) Dose Ordered Sig/Paul Route Start Time Stop Time Status Last Admin Dose Admin Ioversol (Optiray 320) 100 ml UD PRN IV 04/26/17 20:30 04/30/17 20:29 Acetaminophen (Tylenol Tab) 650 mg Q4H PRN PO 04/26/17 22:45 05/26/17 22:44 04/28/17 21:19 650 MG Nitroglycerin (Nitrostat Tab) 0.4 mg UD PRN SL 04/26/17 22:45 05/26/17 22:44 Dabigatran (Pradaxa Cap) 150 mg BID PO 04/27/17 09:00 05/27/17 08:59 04/29/17 08:50 150 MG Diltiazem HCl (TIAzac CAP) 180 mg BID PO 04/27/17 09:00 05/27/17 08:59 04/29/17 08:50 180 MG Levothyroxine Sodium (Synthroid Tab) 50 mcg DAILYBB PO 04/27/17 06:00 05/27/17 06:59 04/29/17 05:36 50 MCG Losartan Potassium (coZAAR TAB) 50 mg BID PO 04/27/17 09:00 05/27/17 08:59 04/29/17 08:50 50 MG Metoprolol Succinate (Toprol Xl Tab) 100 mg BID PO 04/27/17 09:00 05/27/17 08:59 04/29/17 08:49 100 MG Pravastatin Sodium (Pravachol Tab) 80 mg DAILY@17 PO 04/27/17 17:00 05/27/17 16:59 04/28/17 17:03 80 MG Aztreonam 2000 mg/ Dextrose 110 ml @ 100 mls/hr Q8H IV 04/27/17 01:00 05/04/17 00:59 04/29/17 08:57 100 MLS/HR Levofloxacin 500 mg/Prmx 100 ml @ 100 mls/hr Q24H IV 04/27/17 01:30 05/04/17 01:29 04/29/17 01:19 100 MLS/HR Ondansetron HCl (Zofran Inj) 4 mg Q6H PRN IV 04/26/17 22:45 05/26/17 22:44 04/29/17 12:34 4 MG Glucose (Glucose 40% Gel) UD PRN PO 04/26/17 22:45 05/26/17 22:44 Glucose (Glucose Chew Tab) 1 tabs UD PRN PO 04/26/17 22:45 05/26/17 22:44 Dextrose (Dextrose 50% 50ML Syringe) 50 ml UD PRN IV 04/26/17 22:45 05/26/17 22:44 Glucagon (Glucagon Inj) 1 mg UD PRN SQ 04/26/17 22:45 05/26/17 22:44 Budesonide (Pulmicort Respules 0.5MG/ 2ML Neb Soln) 0.5 mg BIDR INH 04/27/17 08:00 05/27/17 07:59 04/29/17 07:12 0.5 MG Vancomycin HCl (Consult) 1 ea UD PRN N/A 04/26/17 23:30 05/26/17 23:29 Ipratropium [place] (Atrovent 0.02% 0.5MG/2.5ML Neb) 0.5 mg Q6R INH 04/27/17 03:00 05/27/17 02:59 04/29/17 07:12 0.5 MG Levalbuterol (Xopenex 1.25MG/ 0.5ML Neb) 1.25 mg Q6R INH 04/27/17 03:00 05/27/17 02:59 04/29/17 07:12 1.25 MG Ipratropium [place] (Atrovent 0.02% 0.5MG/2.5ML Neb) 0.5 mg Q2H PRN INH 04/27/17 00:45 05/27/17 00:44 Levalbuterol (Xopenex 1.25MG/ 0.5ML Neb) 1.25 mg Q2H PRN INH 04/27/17 00:45 05/27/17 00:44 Miscellaneous Information (Consult Glycemic Management Pharmacy) 1 ea UD PRN N/A 04/27/17 12:52 05/27/17 12:51 Insulin Glargine (Lantus Solostar Pen) BID SC 04/27/17 21:00 05/27/17 20:59 04/29/17 08:59 10 UNITS Insulin Aspart (novoLOG ASPART) SLIDING SCALE If C... ACHS SC 04/27/17 21:00 05/27/17 20:59 04/29/17 11:39 10 UNITS Cholecalciferol (Vitamin D Tab) 1,000 inter.unit QAM PO 04/30/17 09:00 05/30/17 08:59 Vancomycin HCl 1250 mg/Sodium Chloride 275 ml @ 125 mls/hr Q14H IV 04/29/17 12:00 05/06/17 11:59 04/29/17 12:01 125 MLS/HR Vital Signs: Date Time Temp Pulse Resp B/P (MAP) Pulse Ox O2 Delivery O2 Flow Rate FiO2 04/29/17 12:00 93 High Flow Oxygen 50 04/29/17 11:48 36.8 108 26 102/55 (71) 90 04/29/17 08:00 93 BiPAP 65 04/29/17 07:44 37.4 105 22 115/65 (82) 94 BiPAP 04/29/17 07:13 103 96 80 04/29/17 07:12 103 33 96 BiPAP/CPAP 80 04/29/17 04:00 98 BiPAP 80 04/29/17 03:40 36.2 104 18 105/65 (78) 96 BiPAP 80 04/29/17 01:50 109 92 80 04/29/17 01:49 109 20 92 BiPAP/CPAP 80 04/29/17 00:00 98 BiPAP 80 04/28/17 23:17 36.4 103 22 110/66 (81) 90 BiPAP 80 04/28/17 21:44 113 90 80 04/28/17 20:00 91 High Flow Oxygen 50.0 80 04/28/17 19:09 110 20 90 Nasal Cannula 50.0 80 04/28/17 19:03 37.7 102 20 142/62 (88) 90 High Flow Oxygen 04/28/17 16:00 91 High Flow Oxygen 65 04/28/17 15:50 107 90 70 04/28/17 15:10 37.7 92 20 118/65 (82) 89 High Flow Oxygen 04/28/17 14:17 97 22 94 Nasal Cannula 65.0 65 Laboratory Results: Last 24 Hours Test 04/28/17 16:03 04/28/17 18:00 04/28/17 19:55 04/29/17 00:00 Bedside Glucose 296 mg/dl 293 mg/dl Urine Collection Time 24 HOURS Urine Total Volume 900 mL Urine Calcium 24 Hour 90.0 mg/24 HR Urine Random Creatinine 110.0 mg/dl Urine Random Total Protein 89.4 mg/dl Urine Protein/Creatinine Ratio 0.8 Test 04/29/17 01:48 04/29/17 05:37 04/29/17 07:11 04/29/17 11:18 Bedside Glucose 111 mg/dl 100 mg/dl 215 mg/dl White Blood Count 7.38 K/uL Red Blood Count 3.17 M/uL Hemoglobin 9.5 g/dL Hematocrit 28.1 % Mean Corpuscular Volume 88.6 fL Mean Corpuscular Hemoglobin 30.0 pg Mean Corpuscular Hemoglobin Concent 33.8 g/dl Platelet Count 160 K/uL Mean Platelet Volume 10.6 fL Neutrophils (%) (Auto) 74.1 % Lymphocytes (%) (Auto) 16.9 % Monocytes (%) (Auto) 6.8 % Eosinophils (%) (Auto) 1.8 % Basophils (%) (Auto) 0.1 % Neutrophils # (Auto) 5.47 K/uL Lymphocytes # (Auto) 1.25 K/uL Monocytes # (Auto) 0.50 K/uL Eosinophils # (Auto) 0.13 K/uL Basophils # (Auto) 0.01 K/uL RDW Standard Deviation 47.9 fL RDW Coefficient of Variation 14.6 % Immature Granulocyte % (Auto) 0.3 % Immature Granulocyte # (Auto) 0.02 K/uL Prothrombin Time 13.4 SECONDS Prothromb Time International Ratio 1.2 Activated Partial Thromboplast Time 47.6 SECONDS Partial Thromboplastin Ratio 1.8 Sodium Level 136 mmol/L Potassium Level 3.7 mmol/L Chloride Level 106 mmol/L Carbon Dioxide Level 23 mmol/L Anion Gap 7.0 mmol/L Blood Urea Nitrogen 20 mg/dl Creatinine 0.76 mg/dl Est Creatinine Clear Calc Drug Dose 64.4 ml/min Estimated GFR () 87.1 Estimated GFR (Non- 75.1 BUN/Creatinine Ratio 26.6 Random Glucose 102 mg/dl Calcium Level 9.4 mg/dl Magnesium Level 2.0 mg/dl Vancomycin Level Trough 8.7 mcg/ml
[2017-04-29] MEDS ORDERED: FUROSEMIDE INJ 20 MG in SYRINGE 0 ML IV SCH (13:45)
[2017-04-29] MEDS: PRAVASTATIN SOD 40 MG TAB PO SCH (16:46)
[2017-04-30] VITALS (18 sets, daily range): BP systolic 105–128; BP diastolic 59–71; PULSE 84–109; TEMP 36.8–38; O2SAT 86–99
[2017-04-30] MEDS: AZTREONAM IV 2,000 MG in DEXTROSE 5% 100ML 100 ML IV SCH ×4 (00:20→23:17)
[2017-04-30] MEDS: LEVOFLOXACIN / D5W 500 MG in PREMIXED IN D5W 100 ML IV SCH (00:21)
[2017-04-30] MEDS: IPRATROPIUM BROMIDE NEB SOLN 0.02% 2.5 ML VIAL INH SCH ×4 (01:33→19:40)
[2017-04-30] MEDS: LEVALBUTEROL 1.25MG/0.5ML NEB INH SCH ×4 (01:33→19:40)
[2017-04-30] MEDS: VANCOMYCIN INJ 1,250 MG in SODIUM CHLORIDE 0.9% 250ML 250 ML IV SCH ×2 (02:52→16:17)
[2017-04-30] MEDS: LEVOTHYROXINE 50 MCG TAB PO SCH (05:48)
[2017-04-30] MEDS: BUDESONIDE 0.5 MG/2 ML VIAL (PULMICORT) INH SCH ×2 (07:10→19:40)
[2017-04-30] MEDS: DILTIAZEM HCL (TIAzac) 180 MG CAPCR PO SCH ×2 (07:48→20:51)
[2017-04-30] MEDS: METOPROLOL SUCC 50MG EXT REL TAB PO SCH ×2 (07:48→20:51)
[2017-04-30] MEDS: CHOLECALCIFEROL 1000 INTER.UNIT TAB PO SCH (07:49)
[2017-04-30] MEDS: LOSARTAN POTASSIUM 50 MG TAB PO SCH ×2 (07:49→20:51)
[2017-04-30] MEDS: DABIGATRAN ELEXILATE 75 MG CAP PO SCH ×2 (07:49→20:52)
[2017-04-30] MEDS: INSULIN GLARGINE SOLOSTAR 100 UNITS/ML 3 ML PEN SC SCH ×2 (07:51→20:54)
[2017-04-30] MEDS: INSULIN ASPART 100 UNITS/ML 3 ML PEN SC SCH ×4 (07:51→20:50)
[2017-04-30 09:24] LABS: MEAN CELL VOLUME 89.5 fL (80-100); MEAN CORPUSCULAR HEMOGLOBIN 29.1 pg (25-34); MEAN CORPUSCULAR HGB CONC 32.5 g/dl (32-36); MEAN PLATELET VOLUME 10.6 fL (7.4-10.4); PLATELET COUNT 177 K/uL (130-400); RED BLOOD COUNT 3.13 M/uL (4.2-5.4); WHITE BLOOD COUNT 6.59 K/uL (4.8-10.8)
--- NOTE | 2017-04-30 09:54 | Pulmonology Progress Note ---
Pulmonary Progress Note Date of Service Apr 30, 2017. Attending Dr. Cook Subjective The patient states she feels less short of breath today. She feels she is definitely better. She did cough up some cream-colored mucus yesterday afternoon and it had a little blood in it. That was the only time she coughed up any blood. During the night she was again maintained on BiPAP. Her sats are definitively higher on BiPAP then when she is on high flow nasal. She is currently on high flow nasal 80%. The patient is not having any chest pains. She did sweat last night she states. Her appetite is good. Objective The patient is cooperative alert and oriented. She was in no distress. She is wearing high flow nasal oxygen. Temperature is 36.8. The ENT exam was unremarkable. Heart rate is 100/m. The rhythm is irregularly irregular. The blood pressure is 105/67. Her oxygen saturation is 91% on a 80% high flow nasal. Her respiratory rate is 24. It was not labored. Auscultation revealed rhonchi on inspiration and expiration as well as dry rales bilaterally. The abdomen is soft. Bowel sounds were heard. There was no tenderness to palpation or masses. Extremities show no cyanosis clubbing or edema. The patient was given a dose of Lasix yesterday. This did not result in any significant diuresis. Her total output yesterday was 1300 but she had over 2000 in. CBC today showed a white count of 6.59. Hemoglobin is 9.1. Platelets are 177, 000. The chemistry from today and the coags from today are still pending. Chest x-ray done yesterday showed no change in the bilateral infiltrates with the dense consolidation in the right upper lung field. Pleural effusions were suspected. Assessment & Plan 1 bilateral pneumonia 2 CHF-diastolic 3 small pleural effusion 4 severe hypoxemia with shunt 5 pleural effusions Patient is starting to feel better. However the chest x-ray is still severely abnormal. We're assuming that she has pneumonia probably coexistent diastolic CHF. She was given some Lasix yesterday. Unfortunately her labs from this morning are still pending. In the past she has had worsening of renal function with diuresis. Her antibiotics are still vancomycin and levofloxacin. She is allergic to penicillins. She is also on aztreonam. I am not willing to change her levofloxacin to by mouth as of now because her status is still tenuous. She is still requiring a large amount of oxygen to maintain herself. She actually looks better than expected. She has had a little hemoptysis but she is also on Pradaxa. We'll recheck her x-ray tomorrow. Data Medications: Current Inpatient Medications Medications (Trade) Dose Ordered Sig/Paul Route Start Time Stop Time Status Last Admin Dose Admin Ioversol (Optiray 320) 100 ml UD PRN IV 04/26/17 20:30 04/30/17 20:29 Acetaminophen (Tylenol Tab) 650 mg Q4H PRN PO 04/26/17 22:45 05/26/17 22:44 04/28/17 21:19 650 MG Nitroglycerin (Nitrostat Tab) 0.4 mg UD PRN SL 04/26/17 22:45 05/26/17 22:44 Dabigatran (Pradaxa Cap) 150 mg BID PO 04/27/17 09:00 05/27/17 08:59 04/30/17 07:49 150 MG Diltiazem HCl (TIAzac CAP) 180 mg BID PO 04/27/17 09:00 05/27/17 08:59 04/30/17 07:48 180 MG Levothyroxine Sodium (Synthroid Tab) 50 mcg DAILYBB PO 04/27/17 06:00 05/27/17 06:59 04/30/17 05:48 50 MCG Losartan Potassium (coZAAR TAB) 50 mg BID PO 04/27/17 09:00 05/27/17 08:59 04/30/17 07:49 50 MG Metoprolol Succinate (Toprol Xl Tab) 100 mg BID PO 04/27/17 09:00 05/27/17 08:59 04/30/17 07:48 100 MG Pravastatin Sodium (Pravachol Tab) 80 mg DAILY@17 PO 04/27/17 17:00 05/27/17 16:59 04/29/17 16:46 80 MG Aztreonam 2000 mg/ Dextrose 110 ml @ 100 mls/hr Q8H IV 04/27/17 01:00 05/04/17 00:59 04/30/17 07:48 100 MLS/HR Levofloxacin 500 mg/Prmx 100 ml @ 100 mls/hr Q24H IV 04/27/17 01:30 05/04/17 01:29 04/30/17 00:21 100 MLS/HR Ondansetron HCl (Zofran Inj) 4 mg Q6H PRN IV 04/26/17 22:45 05/26/17 22:44 04/29/17 12:34 4 MG Glucose (Glucose 40% Gel) UD PRN PO 04/26/17 22:45 05/26/17 22:44 Glucose (Glucose Chew Tab) 1 tabs UD PRN PO 04/26/17 22:45 05/26/17 22:44 Dextrose (Dextrose 50% 50ML Syringe) 50 ml UD PRN IV 04/26/17 22:45 05/26/17 22:44 Glucagon (Glucagon Inj) 1 mg UD PRN SQ 04/26/17 22:45 05/26/17 22:44 Budesonide (Pulmicort Respules 0.5MG/ 2ML Neb Soln) 0.5 mg BIDR INH 04/27/17 08:00 05/27/17 07:59 04/30/17 07:10 0.5 MG Vancomycin HCl (Consult) 1 ea UD PRN N/A 04/26/17 23:30 05/26/17 23:29 Ipratropium [place] (Atrovent 0.02% 0.5MG/2.5ML Neb) 0.5 mg Q6R INH 04/27/17 03:00 05/27/17 02:59 04/30/17 07:10 0.5 MG Levalbuterol (Xopenex 1.25MG/ 0.5ML Neb) 1.25 mg Q6R INH 04/27/17 03:00 05/27/17 02:59 04/30/17 07:10 1.25 MG Ipratropium [place] (Atrovent 0.02% 0.5MG/2.5ML Neb) 0.5 mg Q2H PRN INH 04/27/17 00:45 05/27/17 00:44 Levalbuterol (Xopenex 1.25MG/ 0.5ML Neb) 1.25 mg Q2H PRN INH 04/27/17 00:45 05/27/17 00:44 Miscellaneous Information (Consult Glycemic Management Pharmacy) 1 ea UD PRN N/A 04/27/17 12:52 05/27/17 12:51 Insulin Glargine (Lantus Solostar Pen) BID SC 04/27/17 21:00 05/27/17 20:59 04/30/17 07:51 10 UNITS Insulin Aspart (novoLOG ASPART) SLIDING SCALE If C... ACHS SC 04/27/17 21:00 05/27/17 20:59 04/30/17 07:51 5 UNITS Cholecalciferol (Vitamin D Tab) 1,000 inter.unit QAM PO 04/30/17 09:00 05/30/17 08:59 04/30/17 07:49 1,000 INTER.UNIT Vancomycin HCl 1250 mg/Sodium Chloride 275 ml @ 125 mls/hr Q14H IV 04/29/17 12:00 05/06/17 11:59 04/30/17 02:52 125 MLS/HR Vital Signs: Date Time Temp Pulse Resp B/P (MAP) Pulse Ox O2 Delivery O2 Flow Rate FiO2 04/30/17 08:00 96 High Flow Oxygen 50 04/30/17 08:00 36.8 101 24 105/67 (80) 91 04/30/17 07:11 109 20 99 BiPAP/CPAP 75 04/30/17 04:15 36.8 99 26 122/62 (82) 96 BiPAP 60 04/30/17 04:10 93 BiPAP 60 04/30/17 01:34 99 75 04/30/17 01:33 109 20 99 BiPAP/CPAP 75 04/30/17 00:20 94 BiPAP 75 04/29/17 23:45 37.3 102 22 109/64 (79) 94 BiPAP 75 04/29/17 20:00 BiPAP 80 04/29/17 19:51 92 80 04/29/17 19:14 107 20 91 Nasal Cannula 50.0 85 04/29/17 19:04 38.0 106 20 130/80 (97) 90 BiPAP 04/29/17 16:00 93 BiPAP 70 04/29/17 15:09 36.7 102 18 127/73 (91) 93 BiPAP 04/29/17 14:15 70 24 99 BiPAP/CPAP 90 04/29/17 14:15 70 99 90 04/29/17 12:00 93 High Flow Oxygen 50 04/29/17 11:48 36.8 108 26 102/55 (57) 39 Laboratory Results: Last 24 Hours Test 04/29/17 11:18 04/29/17 16:10 04/29/17 20:04 04/30/17 07:10 Bedside Glucose 215 mg/dl 206 mg/dl 255 mg/dl 92 mg/dl Test 04/30/17 09:08 White Blood Count 6.59 K/uL Red Blood Count 3.13 M/uL Hemoglobin 9.1 g/dL Hematocrit 28.0 % Mean Corpuscular Volume 89.5 fL Mean Corpuscular Hemoglobin 29.1 pg Mean Corpuscular Hemoglobin Concent 32.5 g/dl RDW Standard Deviation 48.7 fL RDW Coefficient of Variation 14.8 % Platelet Count 177 K/uL Mean Platelet Volume 10.6 fL
[2017-04-30 09:58] LABS: BUN/CREATININE RATIO 19.6 (10-20); CALCIUM 9.3 mg/dl (8.5-10.1); CREATININE 0.9 mg/dl (0.60-1.20); MAGNESIUM 1.8 mg/dl (1.8-2.4); POTASSIUM 3.8 mmol/L (3.5-5.1)
[2017-04-30] MEDS ORDERED: POTASSIUM CHLORIDE 10 MEQ TABCR PO ONE (11:15)
[2017-04-30] MEDS ORDERED: FUROSEMIDE INJ 40 MG in SYRINGE 0 ML IV ONE (11:15)
[2017-04-30] MEDS ORDERED: MAGNESIUM OXIDE 400 MG TAB PO ONE (11:15)
--- NOTE | 2017-04-30 13:36 | Family Medicine Progress Note ---
Progress Note Date of Service Apr 30, 2017. Subjective Pt evaluation today including: conversation w/ patient, conversation w/ family , conversation w/ production support consultant, review of inpatient medication list Pain: minimal PO Intake: good Shortness of breath improving Weaned off bipap and onto high flow Received IV lasix yesterday and feeling better Last known weight was 170plbs Constitutional: No fever, No chills, No sweats Respiratory: + shortness of breath, + dyspnea at rest, No cough, No sputum, No wheezing Cardiovascular: No chest pain, No edema, No claudication, No palpitations Abdomen: No pain, No nausea, No vomiting, No diarrhea Medications Current Inpatient Medications Medications (Trade) Dose Ordered Sig/Paul Route Start Time Stop Time Status Last Admin Dose Admin Ioversol (Optiray 320) 100 ml UD PRN IV 04/26/17 20:30 04/30/17 20:29 Acetaminophen (Tylenol Tab) 650 mg Q4H PRN PO 04/26/17 22:45 05/26/17 22:44 04/28/17 21:19 650 MG Nitroglycerin (Nitrostat Tab) 0.4 mg UD PRN SL 04/26/17 22:45 05/26/17 22:44 Dabigatran (Pradaxa Cap) 150 mg BID PO 04/27/17 09:00 05/27/17 08:59 04/30/17 07:49 150 MG Diltiazem HCl (TIAzac CAP) 180 mg BID PO 04/27/17 09:00 05/27/17 08:59 04/30/17 07:48 180 MG Levothyroxine Sodium (Synthroid Tab) 50 mcg DAILYBB PO 04/27/17 06:00 05/27/17 06:59 04/30/17 05:48 50 MCG Losartan Potassium (coZAAR TAB) 50 mg BID PO 04/27/17 09:00 05/27/17 08:59 04/30/17 07:49 50 MG Metoprolol Succinate (Toprol Xl Tab) 100 mg BID PO 04/27/17 09:00 05/27/17 08:59 04/30/17 07:48 100 MG Pravastatin Sodium (Pravachol Tab) 80 mg DAILY@17 PO 04/27/17 17:00 05/27/17 16:59 04/29/17 16:46 80 MG Aztreonam 2000 mg/ Dextrose 110 ml @ 100 mls/hr Q8H IV 04/27/17 01:00 05/04/17 00:59 04/30/17 07:48 100 MLS/HR Levofloxacin 500 mg/Prmx 100 ml @ 100 mls/hr Q24H IV 04/27/17 01:30 05/04/17 01:29 04/30/17 00:21 100 MLS/HR Ondansetron HCl (Zofran Inj) 4 mg Q6H PRN IV 04/26/17 22:45 05/26/17 22:44 04/29/17 12:34 4 MG Glucose (Glucose 40% Gel) UD PRN PO 04/26/17 22:45 05/26/17 22:44 Glucose (Glucose Chew Tab) 1 tabs UD PRN PO 04/26/17 22:45 05/26/17 22:44 Dextrose (Dextrose 50% 50ML Syringe) 50 ml UD PRN IV 04/26/17 22:45 05/26/17 22:44 Glucagon (Glucagon Inj) 1 mg UD PRN SQ 04/26/17 22:45 05/26/17 22:44 Budesonide (Pulmicort Respules 0.5MG/ 2ML Neb Soln) 0.5 mg BIDR INH 04/27/17 08:00 05/27/17 07:59 04/30/17 07:10 0.5 MG Vancomycin HCl (Consult) 1 ea UD PRN N/A 04/26/17 23:30 05/26/17 23:29 Ipratropium [place] (Atrovent 0.02% 0.5MG/2.5ML Neb) 0.5 mg Q6R INH 04/27/17 03:00 05/27/17 02:59 04/30/17 07:10 0.5 MG Levalbuterol (Xopenex 1.25MG/ 0.5ML Neb) 1.25 mg Q6R INH 04/27/17 03:00 05/27/17 02:59 04/30/17 07:10 1.25 MG Ipratropium [place] (Atrovent 0.02% 0.5MG/2.5ML Neb) 0.5 mg Q2H PRN INH 04/27/17 00:45 05/27/17 00:44 Levalbuterol (Xopenex 1.25MG/ 0.5ML Neb) 1.25 mg Q2H PRN INH 04/27/17 00:45 05/27/17 00:44 Miscellaneous Information (Consult Glycemic Management Pharmacy) 1 ea UD PRN N/A 04/27/17 12:52 05/27/17 12:51 Insulin Glargine (Lantus Solostar Pen) BID SC 04/27/17 21:00 05/27/17 20:59 04/30/17 07:51 10 UNITS Insulin Aspart (novoLOG ASPART) SLIDING SCALE If C... ACHS SC 04/27/17 21:00 05/27/17 20:59 04/30/17 11:33 11 UNITS Cholecalciferol (Vitamin D Tab) 1,000 inter.unit QAM PO 04/30/17 09:00 05/30/17 08:59 04/30/17 07:49 1,000 INTER.UNIT Vancomycin HCl 1250 mg/Sodium Chloride 275 ml @ 125 mls/hr Q14H IV 04/29/17 12:00 05/06/17 11:59 04/30/17 02:52 125 MLS/HR Magnesium Oxide (Mag-Ox Tab) 400 mg BID PO 04/30/17 21:00 05/30/17 20:59 Objective Vital Signs Date Time Temp Pulse Resp B/P (MAP) Pulse Ox O2 Delivery O2 Flow Rate FiO2 04/30/17 11:49 37.3 88 23 112/65 (81) 91 High Flow Oxygen 04/30/17 08:00 96 High Flow Oxygen 50 04/30/17 08:00 36.8 101 24 105/67 (80) 91 04/30/17 07:11 109 20 99 BiPAP/CPAP 75 04/30/17 04:15 36.8 99 26 122/62 (82) 96 BiPAP 60 04/30/17 04:10 93 BiPAP 60 04/30/17 01:34 99 75 04/30/17 01:33 109 20 99 BiPAP/CPAP 75 04/30/17 00:20 94 BiPAP 75 04/29/17 23:45 37.3 102 22 109/64 (79) 94 BiPAP 75 04/29/17 20:00 BiPAP 80 04/29/17 19:51 92 80 04/29/17 19:14 107 20 91 Nasal Cannula 50.0 85 04/29/17 19:04 38.0 106 20 130/80 (97) 90 BiPAP 04/29/17 16:00 93 BiPAP 70 04/29/17 15:09 36.7 102 18 127/73 (91) 93 BiPAP 04/29/17 14:15 70 24 99 BiPAP/CPAP 90 04/29/17 14:15 70 99 90 Physical Exam General Appearance: WD/WN, no apparent distress, + pertinent finding (on high flow nasal cannula) Neck: + JVD (to the angle of the mandible) Respiratory/Chest: no respiratory distress, no accessory muscle use, + crackles (at the bases bilaterally), + wheezing (bilaterally) Cardiovascular: no edema, + systolic murmur, + irregularly irregular Abdomen: normal bowel sounds, non tender, soft, + distended Extremities: no pedal edema, no calf tenderness, normal capillary refill, + pertinent finding (weak peripheral pulses) Neurologic/Psychiatric: no motor/sensory deficits, normal mood/affect, oriented x 3 Laboratory Results Results Past 24 Hours Test 04/29/17 16:10 04/29/17 20:04 04/30/17 07:10 04/30/17 09:08 Range/Units Bedside Glucose 206 255 92 70-90 mg/dl White Blood Count 6.59 4.8-10.8 K/uL Red Blood Count 3.13 4.2-5.4 M/uL Hemoglobin 9.1 12.0-16.0 g/dL Hematocrit 28.0 37-47 % Mean Corpuscular Volume 89.5 80-100 fL Mean Corpuscular Hemoglobin 29.1 25-34 pg Mean Corpuscular Hemoglobin Concent 32.5 32-36 g/dl RDW Standard Deviation 48.7 36.4-46.3 fL RDW Coefficient of Variation 14.8 11.5-14.5 % Platelet Count 177 130-400 K/uL Mean Platelet Volume 10.6 7.4-10.4 fL Sodium Level 136 136-145 mmol/L Potassium Level 3.8 3.5-5.1 mmol/L Chloride Level 104 98-107 mmol/L Carbon Dioxide Level 22 21-32 mmol/L Anion Gap 10.0 3-11 mmol/L Blood Urea Nitrogen 18 7-18 mg/dl Creatinine 0.90 0.60-1.20 mg/dl Est Creatinine Clear Calc Drug Dose 54.3 ml/min Estimated GFR () 71.0 Estimated GFR (Non- 61.2 BUN/Creatinine Ratio 19.6 10-20 Random Glucose 239 70-99 mg/dl Calcium Level 9.3 8.5-10.1 mg/dl Phosphorus Level 2.0 2.5-4.9 mg/dl Magnesium Level 1.8 1.8-2.4 mg/dl Test 04/30/17 11:15 Range/Units Bedside Glucose 204 70-90 mg/dl Assessment and Plan 77 yo F p/w SOB admitted with Acute Hypoxic Resp/ Failure in the setting of Multifocal Pneumonia vs CHF,afebrile, clinically improving, weened from BIPAP to high flow oxygen, currently on Levofloxacin and Aztreonam Acute Hypoxic Resp. failure (pneumonia vs CHF) - weaned to high flow from bipap - continue vanc, levaquin and aztreonam - CXR still showing vascular congestion - aspiration ruled out by speech eval - connective tissue workup and vasculitis workup sent out - Pulm on board- suggest repeat CXR tomorrow - patient on nebs - ARDS? CHF - last echo 2016 showed EF 50 with increased R atrial pressure - CXR shows bilateral pleural effusions - given 40mg IV lasix, will reassess - repeat echo ordered - potassium supplementation given PO - monitor I/Os Hypomagnesemia - 1.8 today - supplemental given PO - repeat tomorrow H/H stable Anemia 10.5-->10.8-->9.5 continue to monitor Hypokalemia: - resolved -follow bmps's Hypercalcemia -resolved -PTH wnl -continue to follow RUL Nodule, Hx of Asbestos exposure will likely need further CT, outpatient PFTS DM -glycemic consult Afib - continue pradaxa, diltiazem and metoprolol - home lasix held - patient on telemetry Hypothyroidism -c/w Synthroid HLD: - c/w Pravastatin DVT Proph - already on Pradaxa Resident Physician Supervision Note: I was present with PGY1 Dr. Mani Montiel during the history and exam. I discussed the case with the resident and agree with the findings and plan as documented in the note. Any exceptions or clarifications are listed here: none. Pt does in fact feel better today but still requiring 75% FiO2 on high-flow NC. Tele stable overnight (rate-controlled a. fib). +orthopnea and BARNES. Records reviewed - had heart cath in February 2017 showing mild-mod nonobstructive CAD and mild pulmonary HTN. ECHO 2015 with mild RV dysfunction and EF 50%. Has gained 20-30 pounds of weight over last 6 months. VSS Tm 38 gen - nad, no dyspnea at rest, talks in complete sentences neck - JVD to the jaw mouth - MMM, no thrush heart - irregular, s1, s2, 2/6 systolic murmur LLSB lungs - bibasilar rales, wheezes b/l abd - protuberant, BS+, no liver palpable ext - no edema cbc, BMP stable phos minimally low A/P: 1. acute hypoxic respiratory failure - fairly profound FiO2 requirement and minimal improvement since admission. 2. abnormal chest imaging concerning for pulmonary edema vs other interstitial process. 3. fever with ongoing concern of pneumonia. 4. RUL mass vs infiltrate. 5. suspected acute/chronic systolic CHF; acute/chronic cor pulmonale. 6. compensated hypothyroidism - TSH normal. 7. a. fib - controlled. repeat echo to reassess LV function and RV function. lasix 40mg IV x 1 today. wean HFNC as tolerated. ongoing fever despite triple abx therapy - atypical infection (fungal, etc)? other? vasculitis? agree with work-up proposed by pulmonary. consider IV steroids. would repeat sed rate/crp in am. son updated at bedside. Documented By: Ziyad Mosqueda MD Continued [facility] stay due to: multiple IV medications needed
--- NOTE | 2017-04-30 13:56 | Clinical Documentation Query ---
CLINICAL DOCUMENTATION QUERY Dr. BROWN, In your clinical opinion is this patient being managed for: ( ) Acute on chronic diastolic CHF, POA ( ) Acute on chronic diastolic CHF, not POA ( ) Chronic diastolic CHF only ( ) Other explanation of clinical findings (Please Explain) ( ) Unable to determine (Please Define) ( ) Need to Discuss ( ) Not Agree The medical record reflects the following clinical findings, treatment, and risk factors. Clinical Indicators:77 yo female presenting with increasing dyspnea and wheezing. CXR showed bilateral perihilar opacities and interstitial thickening highly suggestive of pulmonary edema. Pneumonia could appear similar although is considered less likely. [place] 4873 on admission. Repeat CXR showed . Cardiomegaly with evidence of congestive failure and interstitial edema and possible superimposed pneumonia. Pulmonary suggests some degree of CHF as well. Lung sounds with crackles bilateral bases. Treatment: IV lasix, tele, BIPAP, pulmonary consult Risk Factors: age, pneumonia, A fib, HTN, DM Please clarify and document your clinical opinion in the progress notes and discharge summary. Terms such as "probable", "suspected", "likely", "questionable", "possible", or "still to be ruled out" are acceptable. IF IN AGREEMENT, YOU MUST DOCUMENT ABOVE DIAGNOSTIC STATEMENT IN DAILY PROGRESS NOTES AND DISCHARGE SUMMARY. This document is not part of the patient's record. Thank You, Estela Acevedo RN [phone]
--- NOTE | 2017-04-30 13:58 | Clinical Documentation Query ---
CLINICAL DOCUMENTATION QUERY Dr. MARQUIS, In your clinical opinion is this patient being managed for: ( ) Acute on chronic diastolic CHF, POA ( ) Acute on chronic diastolic CHF, not POA ( ) Chronic diastolic CHF only ( x ) Other explanation of clinical findings (Please Explain) - Acute/chronic systolic CHF and acute/chronic cor pulmonale (evidence of RV dysfunction on previous echo) ( ) Unable to determine (Please Define) ( ) Need to Discuss ( ) Not Agree The medical record reflects the following clinical findings, treatment, and risk factors. Clinical Indicators:77 yo female presenting with increasing dyspnea and wheezing. CXR showed bilateral perihilar opacities and interstitial thickening highly suggestive of pulmonary edema. Pneumonia could appear similar although is considered less likely. BNP elevated at 4873 on admission. Repeat CXR showed . Cardiomegaly with evidence of congestive failure and interstitial edema and possible superimposed pneumonia. Pulmonary suggests some degree of CHF as well. Lung sounds with crackles bilateral bases. Treatment: IV lasix, tele, BIPAP, pulmonary consult Risk Factors: age, pneumonia, A fib, HTN, DM Please clarify and document your clinical opinion in the progress notes and discharge summary. Terms such as "probable", "suspected", "likely", "questionable", "possible", or "still to be ruled out" are acceptable. IF IN AGREEMENT, YOU MUST DOCUMENT ABOVE DIAGNOSTIC STATEMENT IN DAILY PROGRESS NOTES AND DISCHARGE SUMMARY. This document is not part of the patient's record. Thank You, Estela Acevedo RN [phone]
[2017-04-30] MEDS: PRAVASTATIN SOD 40 MG TAB PO SCH (15:56)
[2017-04-30] MEDS: ACETAMINOPHEN 325 MG TAB PO PRN (15:57)
[2017-04-30] MEDS: MAGNESIUM OXIDE 400 MG TAB PO SCH (20:50)
--- NOTE | 2017-04-30 20:51 | ECHOCARDIOGRAM REPORT ---
*NOTICE TO RECEIVING DEMOCRAT AGENCY This information is strictly Confidential and protected under [place] law. [place] law prohibits you from making any further disclosure of this information unless further disclosure is expressly permitted by the written consent of the person to whom it pertains or is authorized by law. A general authorization for the release of medical or other information is not sufficient for this purpose. Hospital accepts no responsibility if the information is made available to any other person, INCLUDING THE PATIENT. Interpretation Summary * Name: PARADISE MARMOLEJO Study Date: 04/30/2017 01:33 PM BP: 112/65 mmHg * Patient Location: [id number].2E\S\E205\S\1 HR: 82 * : 1940 (M/d/yyyy) Gender: Female Height: 65 in * Age: 77 yrs Ethnicity: [place] Weight: 179 lb * Ordering Physician: Nicole Valenzuela * Referring Physician: Self, Referred * * BSA: 1.9 m2 * Moderate to severe left ventricular systolic dysfunction. * Mild concentric left ventricular ectopy. * Mild right ventricular dilatation. Mild right ventricular systolic dysfunction. * Moderate biatrial dilatation. * Moderate to severe mitral and tricuspid regurgitation. * Trace pulmonic regurgitation. * Mild pulmonary hypertension. * Elevated central venous pressure. * Small pericardial effusion. No evidence of cardiac tamponade. * -- Conclusions -- * Aortic valve sclerosis mild, without significant aortic valvular stenosis. Procedure Details * Left Ventricle The left ventricle is normal in size. There is mild concentric left ventricular hypertrophy. Ejection Fraction = 25-30%. Left ventricular systolic function is moderate to severely reduced. There is moderate to severe global hypokinesis of the left ventricle. Septal motion is consistent with conduction abnormality. * Right Ventricle The right ventricle is mildly dilated. The right ventricular systolic function is mildly reduced. * Atria The left atrium is moderately dilated. The right atrium is moderately dilated. * Mitral Valve There is moderate mitral annular calcification. There is no mitral valve stenosis. There is moderate to severe mitral regurgitation. * Tricuspid Valve The tricuspid valve is normal. There is no tricuspid stenosis. There is moderate to severe tricuspid regurgitation. Right ventricular systolic pressure is elevated at 30-40mmHg. * Aortic Valve The aortic valve is trileaflet. The aortic valve opens well. Aortic valve sclerosis mild, without significant aortic valvular stenosis. No hemodynamically significant valvular aortic stenosis. No aortic regurgitation is present. * Pulmonic Valve The pulmonic valve is not well visualized. The pulmonary valve is inadequately visualized, but the Doppler data is adequate for interpretation. There is no pulmonic valvular stenosis. Trace pulmonic valvular regurgitation. * Great Vessels The aortic root is normal size. * Pericardium/Pleural Small pericardial effusion. There are no echocardiographic indications of cardiac tamponade. * Great Vessels The inferior vena cava is mildly dilated. * * MMode 2D Measurements and Calculations * IVSd 1.4 cm * * LVIDd 3.8 cm * LVIDs 3.2 cm * LVPWd 1.5 cm * * IVS/LVPW 0.90 * FS 17.2 % * EDV(Teich) 62.4 ml * ESV(Teich) 39.6 ml * EF(Teich) 36.5 % * * EDV(cubed) 55.3 ml * ESV(cubed) 31.4 ml * EF(cubed) 43.2 % * * LV mass(C)d 208.9 grams * LV mass(C)dI 110.7 grams/m\S\2 * * SV(Teich) 22.8 ml * SI(Teich) 12.1 ml/m\S\2 * SV(cubed) 23.9 ml * SI(cubed) 12.7 ml/m\S\2 * * Ao root diam 3.3 cm * Ao root area 8.7 cm\S\2 * * EDV(MOD-sp4) 96.9 ml * ESV(MOD-sp4) 72.1 ml * EF(MOD-sp4) 25.5 % * * EDV(MOD-sp2) 107.3 ml * ESV(MOD-sp2) 74.6 ml * EF(MOD-sp2) 30.5 % * * SV(MOD-sp4) 24.7 ml * SI(MOD-sp4) 13.1 ml/m\S\2 * * SV(MOD-sp2) 32.7 ml * SI(MOD-sp2) 17.3 ml/m\S\2 * * * * Doppler Measurements and Calculations * Ao V2 max 121.6 cm/sec * Ao max PG 5.9 mmHg * Ao max PG (full) 3.8 mmHg * * LV V1 max PG 2.1 mmHg * * LV V1 max 72.8 cm/sec * * TR max brian 278.8 cm/sec * *
[2017-05-01] VITALS (19 sets, daily range): BP systolic 105–132; BP diastolic 60–93; PULSE 84–118; TEMP 36.4–37.2; O2SAT 88–100
[2017-05-01] MEDS: LEVOFLOXACIN / D5W 500 MG in PREMIXED IN D5W 100 ML IV SCH (00:31)
[2017-05-01] MEDS: ACETAMINOPHEN 325 MG TAB PO PRN (01:19)
[2017-05-01] MEDS: IPRATROPIUM BROMIDE NEB SOLN 0.02% 2.5 ML VIAL INH SCH ×4 (02:07→18:48)
[2017-05-01] MEDS: LEVALBUTEROL 1.25MG/0.5ML NEB INH SCH ×4 (02:07→18:48)
[2017-05-01] MEDS ORDERED: VANCOMYCIN TROUGH ONE (05:30)
[2017-05-01 05:35] LABS: HEMATOCRIT 27.7 % (37-47); MEAN CELL VOLUME 87.9 fL (80-100); MEAN CORPUSCULAR HEMOGLOBIN 28.6 pg (25-34); MEAN CORPUSCULAR HGB CONC 32.5 g/dl (32-36); MEAN PLATELET VOLUME 9.9 fL (7.4-10.4); PLATELET COUNT 201 K/uL (130-400); RED BLOOD COUNT 3.15 M/uL (4.2-5.4); WHITE BLOOD COUNT 7.24 K/uL (4.8-10.8)
[2017-05-01] MEDS: VANCOMYCIN INJ 1,250 MG in SODIUM CHLORIDE 0.9% 250ML 250 ML IV SCH (06:00)
[2017-05-01] MEDS: LEVOTHYROXINE 50 MCG TAB PO SCH (06:00)
[2017-05-01 06:03] LABS: PHOSPHORUS 2.5 mg/dl (2.5-4.9)
[2017-05-01] MEDS: BUDESONIDE 0.5 MG/2 ML VIAL (PULMICORT) INH SCH ×2 (07:09→18:48)
--- NOTE | 2017-05-01 07:58 | Pulmonology Progress Note ---
Pulmonary Progress Note Date of Service May 01, 2017. Attending Dr. Cook Subjective The patient's shortness of breath is a little better. She is not as winded as she had been. She finds it easier to move a little bit. She still finds the BiPAP mask uncomfortable. She did not sleep well last night as a result of this. Her cough is mild. There has been no sputum production in the past 24 hours. She has not had any further hemoptysis. She is not having any chest pains. Objective The patient is awake and alert. She appears comfortable. She is sitting up on the side of her bed. She is now on a 75% high flow nasal mask. Her saturations are being well maintained with the current saturation 98%. ENT exam is unremarkable and unchanged. The cardiac rhythm is irregularly irregular. The cardiac rate is 100. The blood pressure was 108/60. The respiratory rate is 24/m. Breath sounds are fairly well heard. She does have mild rales. Her physical findings are much less than expected considering the x-ray findings. There was no accessory muscle use. The abdomen is soft and nontender. Good bowel sounds are heard. Extremities show no edema. The echocardiogram shows evidence of severe left ventricular dysfunction. Ejection fraction is reported as between 25 and 30%. She also has moderate to severe MR and TR. I believe in the past she did not have such significant LV dysfunction. Hypokinesis was present. Assessment & Plan 1 bilateral pneumonia 2 CHF-systolic and diastolic 3 small pleural effusion 4 severe hypoxemia with shunt Comments and recommendations: Patient is slowly improving. She is still on high concentration of oxygen. The echocardiogram is severely abnormal. I believe there may be a major cardiac contribution to her x-ray findings and abnormalities. I believe a more aggressive approach towards diuresis will need to be done. I will defer this to the hospitalist team. Certainly cardiology consultation could be considered and she does see Dr. Turner regularly. She has had renal dysfunction in the past when aggressive diuresis has been undertaken. I am going to DC the vancomycin with the lack of culture data. We'll change the levofloxacin to oral. She has had trouble with her intravenous lines being maintained. We'll recheck a chest x-ray for tomorrow. Data Medications: Current Inpatient Medications Medications (Trade) Dose Ordered Sig/Paul Route Start Time Stop Time Status Last Admin Dose Admin Acetaminophen (Tylenol Tab) 650 mg Q4H PRN PO 04/26/17 22:45 05/26/17 22:44 05/01/17 01:19 650 MG Nitroglycerin (Nitrostat Tab) 0.4 mg UD PRN SL 04/26/17 22:45 05/26/17 22:44 Dabigatran (Pradaxa Cap) 150 mg BID PO 04/27/17 09:00 05/27/17 08:59 04/30/17 20:52 150 MG Diltiazem HCl (TIAzac CAP) 180 mg BID PO 04/27/17 09:00 05/27/17 08:59 04/30/17 20:51 180 MG Levothyroxine Sodium (Synthroid Tab) 50 mcg DAILYBB PO 04/27/17 06:00 05/27/17 06:59 05/01/17 06:00 50 MCG Losartan Potassium (coZAAR TAB) 50 mg BID PO 04/27/17 09:00 05/27/17 08:59 04/30/17 20:51 50 MG Metoprolol Succinate (Toprol Xl Tab) 100 mg BID PO 04/27/17 09:00 05/27/17 08:59 04/30/17 20:51 100 MG Pravastatin Sodium (Pravachol Tab) 80 mg DAILY@17 PO 04/27/17 17:00 05/27/17 16:59 04/30/17 15:56 80 MG Aztreonam 2000 mg/ Dextrose 110 ml @ 100 mls/hr Q8H IV 04/27/17 01:00 05/04/17 00:59 04/30/17 23:17 100 MLS/HR Levofloxacin 500 mg/Prmx 100 ml @ 100 mls/hr Q24H IV 04/27/17 01:30 05/04/17 01:29 05/01/17 00:31 100 MLS/HR Ondansetron HCl (Zofran Inj) 4 mg Q6H PRN IV 04/26/17 22:45 05/26/17 22:44 04/29/17 12:34 4 MG Glucose (Glucose 40% Gel) UD PRN PO 04/26/17 22:45 05/26/17 22:44 Glucose (Glucose Chew Tab) 1 tabs UD PRN PO 04/26/17 22:45 05/26/17 22:44 Dextrose (Dextrose 50% 50ML Syringe) 50 ml UD PRN IV 04/26/17 22:45 05/26/17 22:44 Glucagon (Glucagon Inj) 1 mg UD PRN SQ 04/26/17 22:45 05/26/17 22:44 Budesonide (Pulmicort Respules 0.5MG/ 2ML Neb Soln) 0.5 mg BIDR INH 04/27/17 08:00 05/27/17 07:59 05/01/17 07:09 0.5 MG Vancomycin HCl (Consult) 1 ea UD PRN N/A 04/26/17 23:30 05/26/17 23:29 Ipratropium [place] (Atrovent 0.02% 0.5MG/2.5ML Neb) 0.5 mg Q6R INH 04/27/17 03:00 05/27/17 02:59 05/01/17 07:09 0.5 MG Levalbuterol (Xopenex 1.25MG/ 0.5ML Neb) 1.25 mg Q6R INH 04/27/17 03:00 05/27/17 02:59 05/01/17 07:09 1.25 MG Ipratropium [place] (Atrovent 0.02% 0.5MG/2.5ML Neb) 0.5 mg Q2H PRN INH 04/27/17 00:45 05/27/17 00:44 Levalbuterol (Xopenex 1.25MG/ 0.5ML Neb) 1.25 mg Q2H PRN INH 04/27/17 00:45 05/27/17 00:44 Miscellaneous Information (Consult Glycemic Management Pharmacy) 1 ea UD PRN N/A 04/27/17 12:52 05/27/17 12:51 Insulin Glargine (Lantus Solostar Pen) BID SC 04/27/17 21:00 05/27/17 20:59 04/30/17 20:54 30 UNITS Insulin Aspart (novoLOG ASPART) SLIDING SCALE If C... ACHS SC 04/27/17 21:00 05/27/17 20:59 04/30/17 16:47 10 UNITS Cholecalciferol (Vitamin D Tab) 1,000 inter.unit QAM PO 04/30/17 09:00 05/30/17 08:59 04/30/17 07:49 1,000 INTER.UNIT Vancomycin HCl 1250 mg/Sodium Chloride 275 ml @ 125 mls/hr Q14H IV 04/29/17 12:00 05/06/17 11:59 05/01/17 06:00 125 MLS/HR Magnesium Oxide (Mag-Ox Tab) 400 mg BID PO 04/30/17 21:00 05/30/17 20:59 04/30/17 20:50 400 MG Vital Signs: Date Time Temp Pulse Resp B/P (MAP) Pulse Ox O2 Delivery O2 Flow Rate FiO2 05/01/17 07:08 84 24 100 BiPAP/CPAP 70 05/01/17 05:18 103 97 80 05/01/17 04:00 99 BiPAP 80 05/01/17 03:52 36.4 97 22 108/60 (76) 97 BiPAP 05/01/17 02:08 100 26 94 BiPAP/CPAP 80 05/01/17 02:08 100 94 80 05/01/17 00:00 93 BiPAP 80 04/30/17 23:21 37.4 96 22 124/71 (88) 93 BiPAP 04/30/17 22:07 93 91 80 04/30/17 20:17 93 High Flow Oxygen 50.0 75 04/30/17 20:00 88 High Flow Oxygen 50.0 75 04/30/17 19:56 37.4 96 21 128/68 (88) 86 High Flow Oxygen 50.0 Nasal Cannula 04/30/17 19:40 93 20 86 Nasal Cannula 80 04/30/17 16:00 96 High Flow Oxygen 50.0 80 04/30/17 15:26 38.0 87 127/59 (81) 86 High Flow Oxygen 50.0 Nasal Cannula 04/30/17 14:06 84 26 89 Nasal Cannula 80 04/30/17 12:00 96 High Flow Oxygen 50.0 80 04/30/17 11:49 37.3 88 23 112/65 (81) 91 High Flow Oxygen 04/30/17 08:00 96 High Flow Oxygen 50 04/30/17 08:00 36.8 101 24 105/67 (80) 91 Laboratory Results: Last 24 Hours Test 04/30/17 09:08 04/30/17 11:15 04/30/17 16:17 04/30/17 20:34 White Blood Count 6.59 K/uL Red Blood Count 3.13 M/uL Hemoglobin 9.1 g/dL Hematocrit 28.0 % Mean Corpuscular Volume 89.5 fL Mean Corpuscular Hemoglobin 29.1 pg Mean Corpuscular Hemoglobin Concent 32.5 g/dl RDW Standard Deviation 48.7 fL RDW Coefficient of Variation 14.8 % Platelet Count 177 K/uL Mean Platelet Volume 10.6 fL Sodium Level 136 mmol/L Potassium Level 3.8 mmol/L Chloride Level 104 mmol/L Carbon Dioxide Level 22 mmol/L Anion Gap 10.0 mmol/L Blood Urea Nitrogen 18 mg/dl Creatinine 0.90 mg/dl Est Creatinine Clear Calc Drug Dose 54.3 ml/min Estimated GFR () 71.0 Estimated GFR (Non- 61.2 BUN/Creatinine Ratio 19.6 Random Glucose 239 mg/dl Calcium Level 9.3 mg/dl Phosphorus Level 2.0 mg/dl Magnesium Level 1.8 mg/dl Bedside Glucose 204 mg/dl 155 mg/dl 119 mg/dl Test 05/01/17 05:19 05/01/17 06:29 White Blood Count 7.24 K/uL Red Blood Count 3.15 M/uL Hemoglobin 9.0 g/dL Hematocrit 27.7 % Mean Corpuscular Volume 87.9 fL Mean Corpuscular Hemoglobin 28.6 pg Mean Corpuscular Hemoglobin Concent 32.5 g/dl RDW Standard Deviation 47.6 fL RDW Coefficient of Variation 14.7 % Platelet Count 201 K/uL Mean Platelet Volume 9.9 fL Phosphorus Level 2.5 mg/dl Magnesium Level 2.0 mg/dl Vancomycin Level Trough 12.8 mcg/ml Bedside Glucose 78 mg/dl
[2017-05-01] MEDS ORDERED: FUROSEMIDE INJ 40 MG in SYRINGE 0 ML IV ONE ×2 (08:15→11:15)
[2017-05-01] MEDS: CHOLECALCIFEROL 1000 INTER.UNIT TAB PO SCH (08:27)
[2017-05-01] MEDS: METOPROLOL SUCC 50MG EXT REL TAB PO SCH ×2 (08:27→21:31)
[2017-05-01] MEDS: LOSARTAN POTASSIUM 50 MG TAB PO SCH ×2 (08:28→21:32)
[2017-05-01] MEDS: AZTREONAM IV 2,000 MG in DEXTROSE 5% 100ML 100 ML IV SCH ×2 (08:28→16:18)
[2017-05-01] MEDS: DILTIAZEM HCL (TIAzac) 180 MG CAPCR PO SCH ×2 (08:28→21:32)
[2017-05-01] MEDS: MAGNESIUM OXIDE 400 MG TAB PO SCH ×2 (08:28→21:31)
[2017-05-01] MEDS: DABIGATRAN ELEXILATE 75 MG CAP PO SCH ×2 (08:28→21:32)
[2017-05-01] MEDS: INSULIN ASPART 100 UNITS/ML 3 ML PEN SC SCH ×4 (08:35→21:29)
[2017-05-01] MEDS: INSULIN GLARGINE SOLOSTAR 100 UNITS/ML 3 ML PEN SC SCH ×2 (08:36→21:31)
[2017-05-01 09:26] LABS: BUN/CREATININE RATIO 24.2 (10-20); C-REACTIVE PROTEIN 16.4 mg/dl (0-0.29); CALCIUM 9.2 mg/dl (8.5-10.1); CREATININE 0.76 mg/dl (0.60-1.20); POTASSIUM 3.7 mmol/L (3.5-5.1)
[2017-05-01] MEDS ORDERED: METHYLPREDNISOLONE IV 40 MG in SYRINGE 0 ML IV ONE (11:45)
--- NOTE | 2017-05-01 11:54 | Family Medicine Progress Note ---
Progress Note Date of Service May 01, 2017. Subjective Pt evaluation today including: conversation w/ patient, physical exam Pain: none PO Intake: good Voiding: no voiding problems Patient feels less short of breath than yesterday Able to walk to bedside commode without becoming short of breath Urinating regularly and eating well Constitutional: No fever, No chills, No sweats ENT: No hearing loss, No nasal symptoms, No sore throat Respiratory: + cough (dry), + dyspnea on exertion, No sputum, No wheezing Cardiovascular: No chest pain, No edema, No palpitations Abdomen: No pain, No nausea, No vomiting, No diarrhea, No constipation Musculoskeletal: No joint pain, No muscle pain Medications Current Inpatient Medications Medications (Trade) Dose Ordered Sig/Paul Route Start Time Stop Time Status Last Admin Dose Admin Acetaminophen (Tylenol Tab) 650 mg Q4H PRN PO 04/26/17 22:45 05/26/17 22:44 05/01/17 01:19 650 MG Nitroglycerin (Nitrostat Tab) 0.4 mg UD PRN SL 04/26/17 22:45 05/26/17 22:44 Dabigatran (Pradaxa Cap) 150 mg BID PO 04/27/17 09:00 05/27/17 08:59 05/01/17 08:28 150 MG Diltiazem HCl (TIAzac CAP) 180 mg BID PO 04/27/17 09:00 05/27/17 08:59 05/01/17 08:28 180 MG Levothyroxine Sodium (Synthroid Tab) 50 mcg DAILYBB PO 04/27/17 06:00 05/27/17 06:59 05/01/17 06:00 50 MCG Losartan Potassium (coZAAR TAB) 50 mg BID PO 04/27/17 09:00 05/27/17 08:59 05/01/17 08:28 50 MG Metoprolol Succinate (Toprol Xl Tab) 100 mg BID PO 04/27/17 09:00 05/27/17 08:59 05/01/17 08:27 100 MG Pravastatin Sodium (Pravachol Tab) 80 mg DAILY@17 PO 04/27/17 17:00 05/27/17 16:59 04/30/17 15:56 80 MG Aztreonam 2000 mg/ Dextrose 110 ml @ 100 mls/hr Q8H IV 04/27/17 01:00 05/04/17 00:59 05/01/17 08:28 100 MLS/HR Ondansetron HCl (Zofran Inj) 4 mg Q6H PRN IV 04/26/17 22:45 05/26/17 22:44 04/29/17 12:34 4 MG Glucose (Glucose 40% Gel) UD PRN PO 04/26/17 22:45 05/26/17 22:44 Glucose (Glucose Chew Tab) 1 tabs UD PRN PO 04/26/17 22:45 05/26/17 22:44 Dextrose (Dextrose 50% 50ML Syringe) 50 ml UD PRN IV 04/26/17 22:45 05/26/17 22:44 Glucagon (Glucagon Inj) 1 mg UD PRN SQ 04/26/17 22:45 05/26/17 22:44 Budesonide (Pulmicort Respules 0.5MG/ 2ML Neb Soln) 0.5 mg BIDR INH 04/27/17 08:00 05/27/17 07:59 05/01/17 07:09 0.5 MG Ipratropium [place] (Atrovent 0.02% 0.5MG/2.5ML Neb) 0.5 mg Q6R INH 04/27/17 03:00 05/27/17 02:59 05/01/17 07:09 0.5 MG Levalbuterol (Xopenex 1.25MG/ 0.5ML Neb) 1.25 mg Q6R INH 04/27/17 03:00 05/27/17 02:59 05/01/17 07:09 1.25 MG Ipratropium [place] (Atrovent 0.02% 0.5MG/2.5ML Neb) 0.5 mg Q2H PRN INH 04/27/17 00:45 05/27/17 00:44 Levalbuterol (Xopenex 1.25MG/ 0.5ML Neb) 1.25 mg Q2H PRN INH 04/27/17 00:45 05/27/17 00:44 Miscellaneous Information (Consult Glycemic Management Pharmacy) 1 ea UD PRN N/A 04/27/17 12:52 05/27/17 12:51 Insulin Glargine (Lantus Solostar Pen) BID SC 04/27/17 21:00 05/27/17 20:59 05/01/17 08:36 10 UNITS Insulin Aspart (novoLOG ASPART) SLIDING SCALE If C... ACHS SC 04/27/17 21:00 05/27/17 20:59 05/01/17 08:35 6 UNITS Cholecalciferol (Vitamin D Tab) 1,000 inter.unit QAM PO 04/30/17 09:00 05/30/17 08:59 05/01/17 08:27 1,000 INTER.UNIT Magnesium Oxide (Mag-Ox Tab) 400 mg BID PO 04/30/17 21:00 05/30/17 20:59 05/01/17 08:28 400 MG Levofloxacin (Levaquin Tab) 500 mg DAILY@1800 PO 05/01/17 18:00 05/08/17 17:59 Furosemide 40 mg/ Syringe 4 ml @ 4 mls/min BID17 IV 05/01/17 17:00 05/31/17 16:59 Methylprednisolone Sodium Succinate 40 mg/Syringe 0.64 ml @ 1.5 mls/min NOW ONCE IV 05/01/17 11:45 05/01/17 11:46 Methylprednisolone Sodium Succinate 40 mg/Syringe 0.64 ml @ 1.5 mls/min BID IV 05/01/17 21:00 05/31/17 20:59 UNV Objective Vital Signs Date Time Temp Pulse Resp B/P (MAP) Pulse Ox O2 Delivery O2 Flow Rate FiO2 05/01/17 08:12 36.7 96 19 105/65 (78) 95 High Flow Oxygen 05/01/17 08:00 95 High Flow Oxygen 50 05/01/17 07:08 84 24 100 BiPAP/CPAP 70 05/01/17 05:18 103 97 80 05/01/17 04:00 99 BiPAP 80 05/01/17 03:52 36.4 97 22 108/60 (76) 97 BiPAP 05/01/17 02:08 100 26 94 BiPAP/CPAP 80 05/01/17 02:08 100 94 80 05/01/17 00:00 93 BiPAP 80 04/30/17 23:21 37.4 96 22 124/71 (88) 93 BiPAP 04/30/17 22:07 93 91 80 04/30/17 20:17 93 High Flow Oxygen 50.0 75 04/30/17 20:00 88 High Flow Oxygen 50.0 75 04/30/17 19:56 37.4 96 21 128/68 (88) 86 High Flow Oxygen 50.0 Nasal Cannula 04/30/17 19:40 93 20 86 Nasal Cannula 80 04/30/17 16:00 96 High Flow Oxygen 50.0 80 04/30/17 15:26 38.0 87 127/59 (81) 86 High Flow Oxygen 50.0 Nasal Cannula 04/30/17 14:06 84 26 89 Nasal Cannula 80 04/30/17 12:00 96 High Flow Oxygen 50.0 80 04/30/17 11:49 37.3 88 23 112/65 (81) 91 High Flow Oxygen Physical Exam General Appearance: WD/WN, no apparent distress Neck: supple, thyroid normal, trachea midline, + JVD (to the angle of the mandible), + pertinent finding (carotid bruits bilaterally) Respiratory/Chest: chest non-tender, no respiratory distress, no accessory muscle use, + crackles (at the bases bilaterally) Cardiovascular: regular rate, rhythm, + systolic murmur (2/6 throughout, heart sounds distant) Abdomen: non tender, soft, + hepatomegaly Extremities: non-tender, no pedal edema, no calf tenderness, normal capillary refill, + pertinent finding (weak peripheral pulses bilaterally) Neurologic/Psychiatric: alert, normal mood/affect, oriented x 3 Skin: normal color, warm/dry Laboratory Results Results Past 24 Hours Test 04/30/17 16:17 04/30/17 20:34 05/01/17 05:19 05/01/17 06:29 Range/Units Bedside Glucose 155 119 78 70-90 mg/dl White Blood Count 7.24 4.8-10.8 K/uL Red Blood Count 3.15 4.2-5.4 M/uL Hemoglobin 9.0 12.0-16.0 g/dL Hematocrit 27.7 37-47 % Mean Corpuscular Volume 87.9 80-100 fL Mean Corpuscular Hemoglobin 28.6 25-34 pg Mean Corpuscular Hemoglobin Concent 32.5 32-36 g/dl RDW Standard Deviation 47.6 36.4-46.3 fL RDW Coefficient of Variation 14.7 11.5-14.5 % Platelet Count 201 130-400 K/uL Mean Platelet Volume 9.9 7.4-10.4 fL Erythrocyte Sedimentation Rate 63 0-21 mm/hr Phosphorus Level 2.5 2.5-4.9 mg/dl Magnesium Level 2.0 1.8-2.4 mg/dl Vancomycin Level Trough 12.8 SEE COMMENT mcg/ml Test 05/01/17 08:33 05/01/17 11:09 Range/Units Sodium Level 139 136-145 mmol/L Potassium Level 3.7 3.5-5.1 mmol/L Chloride Level 108 98-107 mmol/L Carbon Dioxide Level 23 21-32 mmol/L Anion Gap 8.0 3-11 mmol/L Blood Urea Nitrogen 18 7-18 mg/dl Creatinine 0.76 0.60-1.20 mg/dl Est Creatinine Clear Calc Drug Dose 64.5 ml/min Estimated GFR () 87.1 Estimated GFR (Non- 75.1 BUN/Creatinine Ratio 24.2 10-20 Random Glucose 167 70-99 mg/dl Calcium Level 9.2 8.5-10.1 mg/dl C-Reactive Protein 16.40 0-0.29 mg/dl Bedside Glucose 145 70-90 mg/dl Assessment and Plan 77 yo F p/w SOB admitted with Acute Hypoxic Resp/ Failure in the setting of Multifocal Pneumonia vs CHF,afebrile, clinically improving, weened from BIPAP to high flow oxygen, currently on Levofloxacin and Aztreonam. Echo showed worsening EF (25-30) with global hypokinesis. Has been on high flow oxygen for a long time. Is there an underlying inflammatory or connective tissue disease causing this acute decrease in heart function. Acute Hypoxic Resp. failure (pneumonia vs CHF) - on high flow - continue IV aztreonam and oral levaquin - aspiration ruled out by speech eval - connective tissue workup and vasculitis workup sent out - Pulm on board- spoke to pulm and we discussed trying steroids (40mg IV BID- solumedrol) as patient been on high flow for prolonged time with possible connective tissue disease with global hypokinesis - patient on nebs - Sarcoid? Pneumonia? ARDS? ILD? Amyloidosis? Drug Induced? CHF - echo showed decreased EF to 25-30 with global hypokinesis and mild pulm hypertension (RVSP 30-40) - CXR shows bilateral pleural effusions - increase lasix to 40mg bid IV, continue to follow bmp - potassium supplementation given PO - monitor I/Os Hypomagnesemia - 2.0 - supplemental given PO - repeat tomorrow H/H stable - Anemia hgb 9 - continue to monitor Hypokalemia: - resolved -follow bmps's Hypercalcemia -resolved -PTH wnl -continue to follow RUL Nodule, Hx of Asbestos exposure will likely need further CT, outpatient PFTS DM -glycemic consult Afib - continue pradaxa, diltiazem and metoprolol - home lasix held - patient on telemetry Hypothyroidism -c/w Synthroid HLD: - c/w Pravastatin DVT Proph - already on Pradaxa Resident Physician Supervision Note: I was present with PGY1 Dr. Mani Montiel during the history and exam. I discussed the case with the resident and agree with the findings and plan as documented in the note. Any exceptions or clarifications are listed here: none. Pt needed a small break from HFNC and was switched to BIPAP for respiratory support today. nearly 2 L diuresis with lasix yesterday. Does in fact feel better w/ less dyspnea but still requiring high FIO2. VSS nearly 2 L of urine output since yesterday but weight unchanged gen - nad, no dyspnea at rest neck - JVD to the jaw mouth - MMM, no thrush heart - irregular, s1, s2, 2/6 systolic murmur LLSB lungs - bibasilar rales, no wheeze today abd - protuberant, BS+, no liver palpable ext - no edema cbc, BMP stable echo findings reviewed A/P: 1. acute hypoxic respiratory failure - continued high FiO2 requirement and minimal improvement since admission. Suspect multifactorial - acute/chronic CHF , +/- infectious/pneumonia, +/- inflammatory lung disease (continued high SED RATE AND CRP despite Rx for pneumonia). 2. abnormal chest imaging concerning for pulmonary edema vs other interstitial process. 3. concern of pneumonia. 4. RUL mass vs infiltrate. 5. acute/chronic systolic CHF / biventricular CHF. EF is worse in comparison to just 2 months ago (on heart cath her EF was largely normal). 6. compensated hypothyroidism - TSH normal. 7. a. fib - controlled and on systemic anticoagulation. 8. 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 9. pulmonary HTN. increase lasix to 40mg BID IV. cardiology consult for additional recommendations for CHF. spoke with pulmonary - due to some concern of inflammatory lung disease (e.g. vasculitis, etc) will add steroids q12h. wean O2 as tolerated. daily labs Documented By: Ziyad Mosqueda MD Continued [facility] stay due to: multiple IV medications needed
--- NOTE | 2017-05-01 13:13 | Pharmacy Progress Note ---
Glycemic Control Progress Note Date of Service May 01, 2017. Scope Glycemic Pharmacist consulted for glycemic control to write orders per [facility] inpatient glycemic control protocol. Objective Accuchecks BSG (last 24hrs): Test 04/30/17 16:17 04/30/17 20:34 05/01/17 06:29 05/01/17 08:33 Bedside Glucose 155 mg/dl (70-90) 119 mg/dl (70-90) 78 mg/dl (70-90) Random Glucose 167 mg/dl (70-99) Test 05/01/17 11:09 Bedside Glucose 145 mg/dl (70-90) Recent Pertinent Medications The patient is currently receiving: * Basal insulin with LANTUS SQ BID based on BSG * 10 units < 100 mg/dL * 30 units for BSG 100-200 mg/dL * 35 units for BSG >200 mg/dL * Correctional Insulin: Novolog Correction per scale ACHS Goal Range: Low 110 mg/dL - High 150 mg/dL Correction Factor: 18 mg/dL/unit * Prandial insulin: Per carb ratio of 1 unit per 5 grams CHO consumed Assessment & Plan ASSESSMENT: * See progress note from 04/27/17 for more background info, in short: * Pt receiving SQ basal bolus insulin regimen for hyperglycemia secondary to baseline DM (outpatient regimen on hold),stress/infection. Now starting IV steroids, Solu-medrol 40mg IV q12h * Patient is currently receiving an average of 66 units of insulin per day * 40 units of basal insulin * 16 units of prandial/correctional insulin * BSGs ranging 92 - 239 mg/dl over the past 24hrs * Changes needed to insulin regimen: * Starting IV Steroids, will tighten CF and CR PLAN FOR INPATIENT GLYCEMIC CONTROL: * Basal insulin with LANTUS SQ BID based on BSG * 10 units for BSG < 100 * 30 units for BSG 100-200 mg/dL * 35 units for BSG >200 mg/dL * Bolus insulin * NovoLog per scale ACHS or Q6hrs while NPO * CHANGE: Goal Range: Low 110 mg/dL - High 140 mg/dL * TIGHTEN: Correction Factor: 12 mg/dL/unit * TIGHTEN: Nutritional / Prandial insulin per carb ratio of 1 unit per 4 grams CHO consumed RECOMMENDATIONS FOR DISCHARGE: * Continue Toujeo 32 units SQ BID, A1c at goal. * Please note that the plan above was derived based on current level of insulin resistance and hospital stress. These recommendations are appropriate for inpatient admission only. Plan of care upon discharge will need to be reassessed to avoid potential outpatient hypo/hyperglycemia. Thank you.
--- NOTE | 2017-05-01 15:50 | Cardiology Consultation ---
Cardiology Consultation Date of Service May 01, 2017. Cardiology Consultation CARDIOLOGY CONSULTATION DATE OF CONSULTATION: May 01, 2017 REFERRING PHYSICIAN: Ziyad Mosqueda MD REASON FOR CONSULT: Declining systolic function/congestive heart failure/ hypoxemia HISTORY OF PRESENT ILLNESS: 76-year-old woman with history of permanent atrial fibrillation (Pradaxa/ diltiazem/metoprolol), chronic diastolic congestive heart failure, nonobstructive CAD on recent catheterization (February 2017), and moderate to severe mitral and tricuspid regurgitation who was admitted 04/26/2017 with progressive dyspnea and noted to have hypoxemia. Current echocardiogram shows a marked decline in her systolic function (EF 25-20%, previously near normal to normal). She is followed in [facility] as an outpatient and had her diuretic modestly reduced after developing some azotemia. Of note, her current weight is 7 kg above her discharge weight from a hospitalization last July. She feels significantly better compared with yesterday, she did have a good overnight diuresis. She denies any chest pain, subjective palpitations, presyncope, or syncope. She does not have dyspnea at rest currently (she is on supplemental oxygen). MEDICATIONS: Furosemide 40 mg IV b.i.d. Pradaxa 150 mg b.i.d. Insulin Diltiazem 180 mg b.i.d. Losartan 50 mg b.i.d. Toprol XL 100 mg b.i.d. Mag oxide Methylprednisolone Pulmicort Pravastatin Levaquin Levothyroxine Atrovent Xopenex Aztreonam Cholecalciferol ALLERGIES: Penicillins PAST MEDICAL HISTORY: Permanent atrial fibrillation Nonobstructive coronary artery disease Previously mild cardiomyopathy (EF 45%-60% very over time) Chronic diastolic congestive heart failure Carpal tunnel syndrome if Chronic anticoagulation Diabetes Dyslipidemia Hypertension Hypothyroidism Left bundle branch block Mitral regurgitation Nephrolithiasis Tricuspid regurgitation Pulmonary hypertension PAST SURGICAL HISTORY: Appendectomy Cholecystectomy Hysterectomy SOCIAL HISTORY: Never smoked. . Retired. FAMILY HISTORY: Cancer, diabetes, heart disease, kidney disease, lung disease REVIEW OF SYSTEMS: Per admission H&P. PHYSICAL EXAMINATION: No distress. Vitals: Afebrile. BP 120/63, pulse 90 and irregular, respirations 24 but unlabored. Skin: No unusual lesions or ecchymosis. HEENT: Unremarkable. Neck: Jugular venous pulse 1/3 to jail up the angle of the jaw with increased respiratory variation, no carotid bruits. Lungs: Bilaterally decreased breath sounds with faint crackles but no wheezing or accessory muscle use. Cardiac: Irregular rhythm without obvious murmur. Abdomen: Benign. Extremities: Nontender without edema. Intact peripheral pulses. Neurologic: Normal affect, nonfocal DATA: ECG from 04/28/2017 showed AFib with rapid ventricular response 110 bpm, left bundle branch block. Chest x-ray from 04/29/2017 shows interstitial edema and pleural effusions. Right upper lobe possible pneumonia. Hemoglobin 9.0 with normal white count and platelet count. PTT therapeutic at 47.6. Normal electrolytes, BUN 18, creatinine 0.76 (18 and 0.9 yesterday). ProBNP 4873. Troponin negative. Current echocardiogram shows normal left ventricular size been severely reduced systolic function (EF 25-30%), moderate to severe global hypokinesis, moderate to severe mitral and tricuspid regurgitation with mild pulmonary hypertension. IMPRESSION: 1. Hypoxic respiratory failure, multifactorial. 2. Bilateral pneumonia. 3. Acute systolic and acute on chronic diastolic congestive heart failure. 4. Pleural effusions. 5. Permanent atrial fibrillation. 6. Left bundle branch block. 7. Moderate to severe mitral and tricuspid regurgitation. DISCUSSION: Patient appears to have progressive dyspnea which has worsened recently requiring acute hospitalization during which she was noted to have a marked decline in systolic function. Doubt her worsening cardiomyopathy is ischemic in etiology given her negative troponin and recent catheterization showing mostly nonobstructive disease. Suspect that her current heart failure is multifactorial, given that she has atrial fibrillation with at times difficult to control rate (despite a vigorous negative chronotropic regimen), chronic left bundle branch block, mitral and tricuspid regurgitation which are at least moderate (and may become severe during acute volume overload), and some degree of pulmonary hypertension. As long as the etiology is not felt ischemic, rather than pursuing a specific etiology to explain her LV systolic function decline, probably best to optimize her volume status and hemodynamics, then reassess LV systolic function afterwards. Agree with increased diuretic, as noted her current weight (82 kg) is markedly above her prior hospitalization weight (75 kg) as well as somewhat above a recent outpatient weight (79.5 kg). In the absence of marked hypotension or very significant azotemia, would continue to push her diuretic to aggressively volume overload. Her rate control seems to have improved since admission. Continue current negative chronotropic regimen. On Pradaxa for anticoagulation. She is on losartan, could titrate upward given her reduced systolic function, but her BP has been low normal and will need to be monitored closely. Dr. Turner follows her as an outpatient, will seek his advice upon his return after the holiday.
[2017-05-01] MEDS: FUROSEMIDE INJ 40 MG in SYRINGE 0 ML IV SCH (16:19)
[2017-05-01] MEDS: PRAVASTATIN SOD 40 MG TAB PO SCH (16:19)
[2017-05-01] MEDS: LEVOFLOXACIN 500 MG TAB PO SCH (16:19)
[2017-05-01] MEDS ORDERED: METHYLPREDNISOLONE IV 40 MG in SYRINGE 0 ML IV SCH (21:00)
[2017-05-02] VITALS (13 sets, daily range): BP systolic 115–122; BP diastolic 61–86; PULSE 79–107; TEMP 36.5–36.8; O2SAT 92–100
[2017-05-02] MEDS: AZTREONAM IV 2,000 MG in DEXTROSE 5% 100ML 100 ML IV SCH (00:19)
[2017-05-02] MEDS: LEVALBUTEROL 1.25MG/0.5ML NEB INH SCH ×2 (02:11→06:50)
[2017-05-02] MEDS: IPRATROPIUM BROMIDE NEB SOLN 0.02% 2.5 ML VIAL INH SCH ×4 (02:11→23:18)
[2017-05-02] MEDS: LEVOTHYROXINE 50 MCG TAB PO SCH (05:27)
[2017-05-02] MEDS: BUDESONIDE 0.5 MG/2 ML VIAL (PULMICORT) INH SCH ×2 (06:50→19:04)
--- NOTE | 2017-05-02 07:05 | DIAGNOSTIC IMAGING REPORT ---
CHEST ONE VIEW PORTABLE CLINICAL HISTORY: follow-up on pneumonia and CHF dyspnea COMPARISON STUDY: 04/29/2017 FINDINGS: Improving findings of congestive failure. Diminished prominence of pulmonary vasculature. Slight decrease in cardiac size of heart remains moderately enlarged. Chronic elevation right hemidiaphragm. IMPRESSION: Improving congestive heart failure Electronically signed by: Lennox Cheng M.D. 05/02/2017 7:04 AM Dictated Date/Time: 05/02/2017 7:03 AM
[2017-05-02 07:26] LABS: CALCIUM 9.8 mg/dl (8.5-10.1); CREATININE 0.66 mg/dl (0.60-1.20); MAGNESIUM 2.2 mg/dl (1.8-2.4)
[2017-05-02] MEDS: INSULIN ASPART 100 UNITS/ML 3 ML PEN SC SCH ×4 (08:20→21:25)
[2017-05-02] MEDS: INSULIN GLARGINE SOLOSTAR 100 UNITS/ML 3 ML PEN SC SCH ×2 (08:21→21:26)
--- NOTE | 2017-05-02 08:52 | Pulmonology Progress Note ---
Pulmonary Progress Note Date of Service May 02, 2017. Attending Dr. Cook Subjective The patient states she is feeling better today. She is less short of breath than she had been. She has no cough. She did wear BiPAP last night and she slept better than she has. Her appetite remains excellent. Objective The patient is a 77-year-old female who is comfortable. She was cooperative, alert, and oriented. ENT exam shows no acute findings. Patient's heart rate at present is elevated to 110/m. At times it was going up to 120/m. The rhythm was irregularly irregular. She states she did have a nebulizer treatment approximately 30 minutes before this exam. It is unclear if the nebulizer medicines may be contributing to her increased heart rate. She has not been out of bed or doing anything exertional to make the heart rate higher. Temperature is 36.5. Blood pressure 122/86. Auscultation of the lung aayla still reveals mild rales at the bases. Her respiratory rate was 20 breaths per minute. The oxygen saturation was 93%. This was on a high flow nasal that appears to be on 55%. The abdomen is soft. Bowel sounds were normal. There was no abdominal tenderness to palpation. Extremities reveal no edema. The echocardiogram shows evidence of severe left ventricular dysfunction. Ejection fraction is reported as between 25 and 30%. She also has moderate to severe MR and TR. I believe in the past she did not have such significant LV dysfunction. Hypokinesis was present. Chest x-ray done this morning shows significant improvement in the bilateral infiltrates and vascular accentuation's. Electrolytes today show sodium 138 potassium 4.0 chloride 106 bicarbonate 25. The BUN was 20 with a creatinine of 0.66. Assessment & Plan 1 bilateral pneumonia 2 CHF-systolic and diastolic 3 small pleural effusion 4 severe hypoxemia with shunt Comments and recommendations: The patient is starting to show significant improvement. Today's chest x-ray is much improved. Her oxygen needs seemed to be less. The nursing staff can continue to decrease her FiO2 according to her oxygen saturations. When she gets down to about 35% we likely could change back to a nasal cannula. I'm going to change the steroids to oral. We'll decrease the dose of the levalbuterol to 0.63 for each treatment and change to every 8 hours. We'll DC the aztreonam. Data Medications: Current Inpatient Medications Medications (Trade) Dose Ordered Sig/Paul Route Start Time Stop Time Status Last Admin Dose Admin Acetaminophen (Tylenol Tab) 650 mg Q4H PRN PO 04/26/17 22:45 05/26/17 22:44 05/01/17 01:19 650 MG Nitroglycerin (Nitrostat Tab) 0.4 mg UD PRN SL 04/26/17 22:45 05/26/17 22:44 Dabigatran (Pradaxa Cap) 150 mg BID PO 04/27/17 09:00 05/27/17 08:59 05/01/17 21:32 150 MG Diltiazem HCl (TIAzac CAP) 180 mg BID PO 04/27/17 09:00 05/27/17 08:59 05/01/17 21:32 180 MG Levothyroxine Sodium (Synthroid Tab) 50 mcg DAILYBB PO 04/27/17 06:00 05/27/17 06:59 05/02/17 05:27 50 MCG Losartan Potassium (coZAAR TAB) 50 mg BID PO 04/27/17 09:00 05/27/17 08:59 05/01/17 21:32 50 MG Metoprolol Succinate (Toprol Xl Tab) 100 mg BID PO 04/27/17 09:00 05/27/17 08:59 05/01/17 21:31 100 MG Pravastatin Sodium (Pravachol Tab) 80 mg DAILY@17 PO 04/27/17 17:00 05/27/17 16:59 05/01/17 16:19 80 MG Aztreonam 2000 mg/ Dextrose 110 ml @ 100 mls/hr Q8H IV 04/27/17 01:00 05/04/17 00:59 05/02/17 00:19 100 MLS/HR Ondansetron HCl (Zofran Inj) 4 mg Q6H PRN IV 04/26/17 22:45 05/26/17 22:44 04/29/17 12:34 4 MG Glucose (Glucose 40% Gel) UD PRN PO 04/26/17 22:45 05/26/17 22:44 Glucose (Glucose Chew Tab) 1 tabs UD PRN PO 04/26/17 22:45 05/26/17 22:44 Dextrose (Dextrose 50% 50ML Syringe) 50 ml UD PRN IV 04/26/17 22:45 05/26/17 22:44 Glucagon (Glucagon Inj) 1 mg UD PRN SQ 04/26/17 22:45 05/26/17 22:44 Budesonide (Pulmicort Respules 0.5MG/ 2ML Neb Soln) 0.5 mg BIDR INH 04/27/17 08:00 05/27/17 07:59 05/02/17 06:50 0.5 MG Ipratropium [place] (Atrovent 0.02% 0.5MG/2.5ML Neb) 0.5 mg Q6R INH 04/27/17 03:00 05/27/17 02:59 05/02/17 06:50 0.5 MG Levalbuterol (Xopenex 1.25MG/ 0.5ML Neb) 1.25 mg Q6R INH 04/27/17 03:00 05/27/17 02:59 05/02/17 06:50 1.25 MG Ipratropium [place] (Atrovent 0.02% 0.5MG/2.5ML Neb) 0.5 mg Q2H PRN INH 04/27/17 00:45 05/27/17 00:44 Levalbuterol (Xopenex 1.25MG/ 0.5ML Neb) 1.25 mg Q2H PRN INH 04/27/17 00:45 05/27/17 00:44 Miscellaneous Information (Consult Glycemic Management Pharmacy) 1 ea UD PRN N/A 04/27/17 12:52 05/27/17 12:51 Insulin Glargine (Lantus Solostar Pen) BID SC 04/27/17 21:00 05/27/17 20:59 05/02/17 08:21 35 UNITS Insulin Aspart (novoLOG ASPART) SLIDING SCALE If C... ACHS SC 04/27/17 21:00 05/27/17 20:59 05/02/17 08:20 25 UNITS Cholecalciferol (Vitamin D Tab) 1,000 inter.unit QAM PO 04/30/17 09:00 05/30/17 08:59 05/01/17 08:27 1,000 INTER.UNIT Magnesium Oxide (Mag-Ox Tab) 400 mg BID PO 04/30/17 21:00 05/30/17 20:59 05/01/17 21:31 400 MG Levofloxacin (Levaquin Tab) 500 mg DAILY@1800 PO 05/01/17 18:00 05/08/17 17:59 05/01/17 16:19 500 MG Furosemide 40 mg/ Syringe 4 ml @ 4 mls/min BID17 IV 05/01/17 17:00 05/31/17 16:59 05/01/17 16:19 4 MLS/MIN Methylprednisolone Sodium Succinate 40 mg/Syringe 0.64 ml @ 1.5 mls/min BID IV 05/01/17 21:00 05/31/17 20:59 05/01/17 21:31 1.5 MLS/MIN Vital Signs: Date Time Temp Pulse Resp B/P (MAP) Pulse Ox O2 Delivery O2 Flow Rate FiO2 05/02/17 07:55 36.5 103 16 122/86 (98) 94 05/02/17 06:50 107 18 96 BiPAP/CPAP 40 05/02/17 06:50 107 96 40 05/02/17 05:08 93 96 40 05/02/17 04:00 BiPAP 05/02/17 03:21 36.6 103 19 119/80 (93) 98 BiPAP 05/02/17 02:12 94 92 40 05/02/17 02:11 94 16 92 BiPAP/CPAP 40 05/01/17 23:59 BiPAP 05/01/17 23:12 36.6 113 20 130/86 (101) 99 BiPAP 05/01/17 21:58 118 94 40 05/01/17 20:00 High Flow Oxygen 05/01/17 18:53 37.0 106 17 132/77 (95) 100 High Flow Oxygen 05/01/17 18:48 111 20 95 Nasal Cannula 50.0 75 05/01/17 16:00 90 High Flow Oxygen 50 05/01/17 15:32 37.2 101 27 132/93 (106) 88 High Flow Oxygen 05/01/17 14:10 90 94 70 05/01/17 14:09 91 24 90 Nasal Cannula 75 05/01/17 12:14 36.8 92 18 120/63 (82) 94 High Flow Oxygen 05/01/17 12:00 95 High Flow Oxygen 50 Laboratory Results: Last 24 Hours Test 05/01/17 11:09 05/01/17 16:05 05/01/17 19:54 05/02/17 06:14 Bedside Glucose 145 mg/dl 142 mg/dl 237 mg/dl 217 mg/dl Test 05/02/17 06:26 Sodium Level 138 mmol/L Potassium Level 4.0 mmol/L Chloride Level 106 mmol/L Carbon Dioxide Level 25 mmol/L Anion Gap 7.0 mmol/L Blood Urea Nitrogen 20 mg/dl Creatinine 0.66 mg/dl Est Creatinine Clear Calc Drug Dose 74.3 ml/min Estimated GFR () 98.1 Estimated GFR (Non- 84.6 BUN/Creatinine Ratio 31.0 Random Glucose 201 mg/dl Calcium Level 9.8 mg/dl Magnesium Level 2.2 mg/dl
[2017-05-02] MEDS: MAGNESIUM OXIDE 400 MG TAB PO SCH ×2 (09:29→21:22)
[2017-05-02] MEDS: FUROSEMIDE INJ 40 MG in SYRINGE 0 ML IV SCH ×2 (09:29→17:40)
[2017-05-02] MEDS: CHOLECALCIFEROL 1000 INTER.UNIT TAB PO SCH (09:29)
[2017-05-02] MEDS: DILTIAZEM HCL (TIAzac) 180 MG CAPCR PO SCH ×2 (09:30→21:23)
[2017-05-02] MEDS: DABIGATRAN ELEXILATE 75 MG CAP PO SCH ×2 (09:30→21:21)
[2017-05-02] MEDS: LOSARTAN POTASSIUM 50 MG TAB PO SCH ×2 (09:30→21:22)
[2017-05-02] MEDS: METOPROLOL SUCC 50MG EXT REL TAB PO SCH ×2 (09:30→21:22)
--- NOTE | 2017-05-02 10:00 | Cardiology Follow-Up ---
Subjective Date of Service: May 02, 2017. Pt evaluation today including: conversation w/ patient, physical exam, chart review, lab review, review of studies, review of inpatient medication list, conversation w/ attending History of Present Illness Mrs. Luke reports that she is feeling much better today. She does not have dyspnea currently. She denies orthopnea, PND, or edema. She further denies chest discomfort, palpitations, syncope, or presyncope. Social History Smoking Status: Never Smoker History of Alcohol Use: No Review of Systems Respiratory: + cough (dry), + dyspnea on exertion, No sputum, No wheezing Cardiac: No chest pain, No edema, No palpitations Objective Vital Signs Past 12 Hours Date Time Temp Pulse Resp B/P (MAP) Pulse Ox O2 Delivery O2 Flow Rate FiO2 05/02/17 07:55 36.5 103 16 122/86 (98) 94 05/02/17 06:50 107 18 96 BiPAP/CPAP 40 05/02/17 06:50 107 96 40 05/02/17 05:08 93 96 40 05/02/17 04:00 BiPAP 05/02/17 03:21 36.6 103 19 119/80 (93) 98 BiPAP 05/02/17 02:12 94 92 40 05/02/17 02:11 94 16 92 BiPAP/CPAP 40 05/01/17 23:59 BiPAP 05/01/17 23:12 36.6 113 20 130/86 (101) 99 BiPAP 05/01/17 21:58 118 94 40 Last Recorded Weight-Kilograms: 82.000 Physical Exam Constitutional: Alert, oriented, in no acute distress HEENT: Head is atraumatic and normocephalic. EOMs intact. Sclera anicteric. Face is symmetric. No perioral cyanosis. Mucous membranes moist. Neck: Supple, jugular venous pulse elevated just above the clavicle at 90 degrees Pulmonary: Normal respiratory effort, decreased breath sounds, faint crackles Cardiac: Irregular rhythm, normal S1 and S2, no gallops, no rubs, no murmurs Extremities: No clubbing, cyanosis, or edema. Pulses intact Abdomen: Normal bowel sounds, soft, non-tender, no abdominal mass palpated Skin: Normal skin color, turgor, and pigmentation, no rash, no skin lesions Neurological: Oriented to person, place, and time Data Laboratory Results: Last 24 Hours Test 05/01/17 11:09 05/01/17 16:05 05/01/17 19:54 05/02/17 06:14 Bedside Glucose 145 mg/dl 142 mg/dl 237 mg/dl 217 mg/dl Test 05/02/17 06:26 Sodium Level 138 mmol/L Potassium Level 4.0 mmol/L Chloride Level 106 mmol/L Carbon Dioxide Level 25 mmol/L Anion Gap 7.0 mmol/L Blood Urea Nitrogen 20 mg/dl Creatinine 0.66 mg/dl Est Creatinine Clear Calc Drug Dose 74.3 ml/min Estimated GFR () 98.1 Estimated GFR (Non- 84.6 BUN/Creatinine Ratio 31.0 Random Glucose 201 mg/dl Calcium Level 9.8 mg/dl Magnesium Level 2.2 mg/dl CXR: Improving findings of congestive failure. Diminished prominence of pulmonary vasculature. Slight decrease in cardiac size of heart remains moderately enlarged. Chronic elevation right hemidiaphragm. Telemetry reviewed: Atrial fibrillation with average rate of 90-110s. Her rate increased up to the 130s earlier this morning. Assessment and Plan ASSESSMENT/PLAN: 1. Acute systolic and acute on chronic diastolic CHF: Her volume status has improved. Continue IV diuresis and closely monitor PRP. 2. Cardiomyopathy: Etiology uncertain, but it is likely multifactorial given atrial fibrillation with elevated rates at times, LBBB, moderate MR/TR, and possible pulmonary hypertension. It does not appear to be ischemic given her negative troponin and recent catheterization showing mostly nonobstructive disease. Continue Metoprolol succinate 100 mg BID. Continue Losartan at current dose, but would titrate upward as tolerated in the future if her BP will allow. 3. Atrial fibrillation: Her rate is not well controlled despite high doses of Metoprolol and Diltiazem. Will therefore initiate Digoxin for better rate control, which will not affect her blood pressure. Recommend 0.25 mg IV x2 doses spaced 4 hours apart and then 0.125 mg PO daily. Of note, the patient does have a history of Digoxin toxicity, however, this occurred because she had inadvertently doubled her Digoxin dose instead of cutting it in half as instructed. Monitor Digoxin level closely while on the medication. Continue Pradaxa for thromboembolic prophylaxis. 4. Moderate to severe mitral and tricuspid regurgitation: Will reassess in the future after she has been adequately diuresed. 5. Disposition: Will continue to follow along throughout the patient's hospitalization. Her primary real estate leasing agent, Dr. Turner, will be in to see her tomorrow. Patient was seen and discussed with Dr. Mcelroy, and the plan was made in collaboration with him.
[2017-05-02] MEDS ORDERED: INSULIN REGULAR 5 UNITS in SYRINGE 4.95 ML IV SCH (12:30)
--- NOTE | 2017-05-02 13:04 | Family Medicine Progress Note ---
Progress Note Date of Service May 02, 2017. Subjective Pt evaluation today including: conversation w/ patient, physical exam, conversation w/ senior clinical consultant, review of inpatient medication list Pain: none PO Intake: good Voiding: no voiding problems Patient is feeling less short of breath today She is eating well, urinating regularly and is having normal bowel movements She denies any chest pain, cough or swelling in her legs Has decreased her O2 requirements and is diuresing well Constitutional: No fever, No chills, No sweats Respiratory: + dyspnea on exertion, No cough, No sputum, No dyspnea at rest Cardiovascular: No chest pain, No edema, No palpitations Abdomen: No pain, No nausea, No vomiting, No diarrhea, No constipation Medications Current Inpatient Medications Medications (Trade) Dose Ordered Sig/Paul Route Start Time Stop Time Status Last Admin Dose Admin Acetaminophen (Tylenol Tab) 650 mg Q4H PRN PO 04/26/17 22:45 05/26/17 22:44 05/01/17 01:19 650 MG Nitroglycerin (Nitrostat Tab) 0.4 mg UD PRN SL 04/26/17 22:45 05/26/17 22:44 Dabigatran (Pradaxa Cap) 150 mg BID PO 04/27/17 09:00 05/27/17 08:59 05/02/17 09:30 150 MG Diltiazem HCl (TIAzac CAP) 180 mg BID PO 04/27/17 09:00 05/27/17 08:59 05/02/17 09:30 180 MG Levothyroxine Sodium (Synthroid Tab) 50 mcg DAILYBB PO 04/27/17 06:00 05/27/17 06:59 05/02/17 05:27 50 MCG Losartan Potassium (coZAAR TAB) 50 mg BID PO 04/27/17 09:00 05/27/17 08:59 05/02/17 09:30 50 MG Metoprolol Succinate (Toprol Xl Tab) 100 mg BID PO 04/27/17 09:00 05/27/17 08:59 05/02/17 09:30 100 MG Pravastatin Sodium (Pravachol Tab) 80 mg DAILY@17 PO 04/27/17 17:00 05/27/17 16:59 05/01/17 16:19 80 MG Ondansetron HCl (Zofran Inj) 4 mg Q6H PRN IV 04/26/17 22:45 05/26/17 22:44 04/29/17 12:34 4 MG Glucose (Glucose 40% Gel) UD PRN PO 04/26/17 22:45 05/26/17 22:44 Glucose (Glucose Chew Tab) 1 tabs UD PRN PO 04/26/17 22:45 05/26/17 22:44 Dextrose (Dextrose 50% 50ML Syringe) 50 ml UD PRN IV 04/26/17 22:45 05/26/17 22:44 Glucagon (Glucagon Inj) 1 mg UD PRN SQ 04/26/17 22:45 05/26/17 22:44 Budesonide (Pulmicort Respules 0.5MG/ 2ML Neb Soln) 0.5 mg BIDR INH 04/27/17 08:00 05/27/17 07:59 05/02/17 06:50 0.5 MG Ipratropium [place] (Atrovent 0.02% 0.5MG/2.5ML Neb) 0.5 mg Q2H PRN INH 04/27/17 00:45 05/27/17 00:44 Miscellaneous Information (Consult Glycemic Management Pharmacy) 1 ea UD PRN N/A 04/27/17 12:52 05/27/17 12:51 Insulin Glargine (Lantus Solostar Pen) BID SC 04/27/17 21:00 05/27/17 20:59 05/02/17 08:21 35 UNITS Insulin Aspart (novoLOG ASPART) SLIDING SCALE If C... ACHS SC 04/27/17 21:00 05/27/17 20:59 05/02/17 11:51 28 UNITS Cholecalciferol (Vitamin D Tab) 1,000 inter.unit QAM PO 04/30/17 09:00 05/30/17 08:59 05/02/17 09:29 1,000 INTER.UNIT Magnesium Oxide (Mag-Ox Tab) 400 mg BID PO 04/30/17 21:00 05/30/17 20:59 05/02/17 09:29 400 MG Levofloxacin (Levaquin Tab) 500 mg DAILY@1800 PO 05/01/17 18:00 05/08/17 17:59 05/01/17 16:19 500 MG Furosemide 40 mg/ Syringe 4 ml @ 4 mls/min BID17 IV 05/01/17 17:00 05/31/17 16:59 05/02/17 09:29 4 MLS/MIN Ipratropium [place] (Atrovent 0.02% 0.5MG/2.5ML Neb) 0.5 mg Q8R INH 05/02/17 16:00 06/01/17 15:59 Levalbuterol (Xopenex 0.63 Mg/ 3 Ml Neb) 0.63 mg Q2H PRN INH 05/02/17 10:45 05/27/17 00:44 Levalbuterol (Xopenex 0.63 Mg/ 3 Ml Neb) 0.63 mg Q8R INH 05/02/17 16:00 06/01/17 15:59 Prednisone (PredniSONE TAB) 40 mg DAILY PO 05/02/17 09:00 06/01/17 08:59 05/02/17 11:50 40 MG Insulin Human Regular 5 units/ Syringe 5 ml @ 1 mls/min TODAY@1230 IV 05/02/17 12:30 05/02/17 12:34 Objective Vital Signs Date Time Temp Pulse Resp B/P (MAP) Pulse Ox O2 Delivery O2 Flow Rate FiO2 05/02/17 12:25 36.8 90 18 118/66 (83) 95 90 05/02/17 12:00 High Flow Oxygen 05/02/17 08:00 High Flow Oxygen 05/02/17 07:55 36.5 103 16 122/86 (98) 94 05/02/17 06:50 107 18 96 BiPAP/CPAP 40 05/02/17 06:50 107 96 40 05/02/17 05:08 93 96 40 05/02/17 04:00 BiPAP 05/02/17 03:21 36.6 103 19 119/80 (93) 98 BiPAP 05/02/17 02:12 94 92 40 05/02/17 02:11 94 16 92 BiPAP/CPAP 40 05/01/17 23:59 BiPAP 05/01/17 23:12 36.6 113 20 130/86 (101) 99 BiPAP 05/01/17 21:58 118 94 40 05/01/17 20:00 High Flow Oxygen 05/01/17 18:53 37.0 106 17 132/77 (95) 100 High Flow Oxygen 05/01/17 18:48 111 20 95 Nasal Cannula 50.0 75 05/01/17 16:00 90 High Flow Oxygen 50 05/01/17 15:32 37.2 101 27 132/93 (106) 88 High Flow Oxygen 05/01/17 14:10 90 94 70 05/01/17 14:09 91 24 90 Nasal Cannula 75 Physical Exam General Appearance: WD/WN, no apparent distress, + pertinent finding (on high flow) Neck: + JVD (still elevated to angle of mandible with hepatojugular reflux, but diminished compared to yesterday), + pertinent finding (carotid bruits bilaterally) Respiratory/Chest: no respiratory distress, no accessory muscle use, + wheezing (diffuse inspiratory and expiratory wheezing bilaterally) Cardiovascular: no edema, no murmur, + irregularly irregular Abdomen: normal bowel sounds, non tender, soft Extremities: no pedal edema, normal capillary refill, + pertinent finding ( weak peripheral pulses) Neurologic/Psychiatric: alert, normal mood/affect, oriented x 3 Skin: normal color, warm/dry Assessment and Plan 77 yo F p/w SOB admitted with acute resp failure due to worsening CHF vs possible interstitial lung disease Acute Hypoxic Resp. failure - on high flow, 35%, decreasing requirements, can switch to nasal cannula soon - Aztreonam stopped and oral levaquin - solumedrol downgraded to 40mg PO - levalbuterol and ipratropium nebs q8 CHF - echo showed decreased EF to 25-30 with global hypokinesis and mild pulm hypertension (RVSP 30-40) - CXR shows improving CHF - lasix to 40mg bid IV, continue to follow bmp - potassium supplementation given PO - monitor I/Os - cardiology consulted Afib - continue pradaxa, diltiazem and metoprolol - cardiology consulted and started digoxin .25mg IV q4 for 2 doses and then .125 PO daily - home lasix held - patient on telemetry - check TSH tomorrow morning Hypomagnesemia - 2.2 - supplemental given PO Anemia - Hgb stable - continue to monitor Hypokalemia: - resolved -f ollow bmps's Hypercalcemia -resolved -PTH wnl -continue to follow RUL Nodule, Hx of Asbestos exposure will likely need further CT, outpatient PFTS DM -glycemic consult Hypothyroidism -c/w Synthroid - check TSH HLD: - c/w Pravastatin DVT Proph - already on Pradaxa Resident Physician Supervision Note: I was present with PGY1 Dr. Mani Montiel during the history and exam. I discussed the case with the resident and agree with the findings and plan as documented in the note. Any exceptions or clarifications are listed here: TSH on 04/20/17 was normal and thus will defer checking again. "I feel better" Less dyspnea O2 has been weaned Slept ok last night eating very well tele with uncontrolled a. fib VSS net negative I/O balance overnight HRs still > 100 gen - nad, no dyspnea at rest neck - JVD to the jaw but vessels less prominent mouth - MMM, no thrush heart - irregular, s1, s2, 2/6 systolic murmur LLSB lungs - bibasilar rales - very mild/improved, mild end-exp wheeze b/l abd - protuberant but improved from prior exams, BS+, no liver palpable ext - no edema BMP stable; magnesium normal A/P: 1. acute hypoxic respiratory failure - improved. Suspect multifactorial - acute/chronic CHF, +/- infectious/pneumonia, +/- inflammatory lung disease (continued high SED RATE AND CRP despite Rx for pneumonia). Leaning more towards CHF as largest component of this issue. Cont diuresis. 2. abnormal chest imaging concerning for pulmonary edema vs other interstitial process - cxr today IMPROVED c/w improving CHF. 3. concern of pneumonia - less concern at this time. Pulmonary following who plans to narrow her antibiotics today. 4. RUL mass vs infiltrate. Future imaging will be needed. 5. acute/chronic systolic CHF / biventricular CHF. EF is worse in comparison to just 2 months ago (on heart cath her EF was largely normal). Cont diuresis. 6. compensated hypothyroidism - TSH normal 03/2017. 7. a. fib - uncontrolled rates; adding dig today. Continue systemic anticoagulation. 8. 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 9. pulmonary HTN. 10. ?inflammatory lung process - cont steroids, defer management to pulmonary. BMP in am. appreciate pulmonary and cardiology consults and recs. cont PT, OT. will likely need rehab after d/c. Documented By: Ziyad Mosqueda MD Continued [facility] stay due to: multiple IV medications needed
--- NOTE | 2017-05-02 13:58 | Pharmacy Progress Note ---
Glycemic: Assessment & Plan Date of Service May 02, 2017. Assessment & Plan Recent Pertinent Medications The patient is currently receiving: * Basal insulin: LANTUS SQ BID based on BSG * 10 units < 100 mg/dL * 30 units for BSG 100-200 mg/dL * 35 units for BSG >200 mg/dL * Bolus Insulin: NovoLog Correction per scale ACHS * Goal Range: Low 110 mg/dL - High 140 mg/dL * Correction Factor: 12 mg/dL/unit * Carb ratio of 1 unit per 4 grams CHO consumed Assessment & Plan ASSESSMENT: * See progress note from 04/27/17 for more background info, in short: * Pt receiving SQ basal/bolus insulin regimen for hyperglycemia secondary to baseline DM (outpatient regimen on hold),stress/infection. Now starting IV steroids, Solu-Medrol 40mg IV q12h --> Prednisone 40mg PO Daily * Patient is currently receiving an average of >70 units of insulin per day * ~45 units of basal insulin * ~33 units of prandial/correctional insulin * BSGs ranging 78-237 mg/dl over the past 24hrs * Changes needed to insulin regimen: * tighten CF and CR (for breakfast and lunch only, then loosen again since steroids changed to PO) * give a one time dose of IV insulin for BSG >300mg/dL today with lunch * continue with adjustable basal insulin PLAN FOR INPATIENT GLYCEMIC CONTROL: * Basal insulin: LANTUS SQ BID based on BSG * 10 units for BSG < 100 * 30 units for BSG 100-200 mg/dL * 35 units for BSG >200 mg/dL * Bolus insulin NovoLog per scale ACHS or Q6hrs while NPO * Goal Range: Low 110 mg/dL - High 140 mg/dL * Correction Factor: 10 mg/dL/unit for breakfast and lunch, then 15mg/dL/unit for dinner and onward * Carb ratio of 1 unit per 3 grams CHO consumed for breakfast and lunch, then 1 :5 for dinner and onward RECOMMENDATIONS FOR DISCHARGE: * Continue home regimen since A1c at goal * Please note that the plan above was derived based on current level of insulin resistance and hospital stress. These recommendations are appropriate for inpatient admission only. Plan of care upon discharge will need to be reassessed to avoid potential outpatient hypo/hyperglycemia. Thank you.
[2017-05-02] MEDS: LEVALBUTEROL 0.63MG/3 ML NEB INH SCH ×2 (15:05→23:18)
[2017-05-02] MEDS: DIGOXIN IV 250 MCG in SYRINGE 9 ML IV SCH ×2 (16:05→21:23)
[2017-05-02] MEDS: PRAVASTATIN SOD 40 MG TAB PO SCH (17:38)
[2017-05-02] MEDS: LEVOFLOXACIN 500 MG TAB PO SCH (17:40)
[2017-05-03] VITALS (9 sets, daily range): BP systolic 103–137; BP diastolic 57–77; PULSE 78–102; TEMP 36.4–36.8; O2SAT 94–96
[2017-05-03] MEDS: INSULIN ASPART 100 UNITS/ML 3 ML PEN SC SCH ×6 (00:09→20:50)
[2017-05-03] MEDS: LEVOTHYROXINE 50 MCG TAB PO SCH (04:41)
[2017-05-03 06:56] LABS: BUN/CREATININE RATIO 32.7 (10-20); CALCIUM 9.7 mg/dl (8.5-10.1); CREATININE 0.76 mg/dl (0.60-1.20); POTASSIUM 3.7 mmol/L (3.5-5.1)
[2017-05-03] MEDS: LEVALBUTEROL 0.63MG/3 ML NEB INH SCH ×3 (07:07→18:57)
[2017-05-03] MEDS: BUDESONIDE 0.5 MG/2 ML VIAL (PULMICORT) INH SCH ×2 (07:07→18:57)
[2017-05-03] MEDS: IPRATROPIUM BROMIDE NEB SOLN 0.02% 2.5 ML VIAL INH SCH ×2 (07:07→18:57)
[2017-05-03] MEDS: FUROSEMIDE INJ 40 MG in SYRINGE 0 ML IV SCH ×2 (07:40→16:46)
[2017-05-03] MEDS: METOPROLOL SUCC 50MG EXT REL TAB PO SCH ×2 (07:41→19:51)
[2017-05-03] MEDS: DABIGATRAN ELEXILATE 75 MG CAP PO SCH ×2 (07:42→19:51)
[2017-05-03] MEDS: LOSARTAN POTASSIUM 50 MG TAB PO SCH ×2 (07:42→19:55)
[2017-05-03] MEDS: MAGNESIUM OXIDE 400 MG TAB PO SCH ×2 (07:43→19:55)
[2017-05-03] MEDS: DILTIAZEM HCL (TIAzac) 180 MG CAPCR PO SCH ×2 (07:43→19:50)
[2017-05-03] MEDS: CHOLECALCIFEROL 1000 INTER.UNIT TAB PO SCH (07:43)
[2017-05-03] MEDS: INSULIN GLARGINE SOLOSTAR 100 UNITS/ML 3 ML PEN SC SCH ×2 (07:53→20:51)
--- NOTE | 2017-05-03 09:15 | Cardiology Follow-Up ---
Subjective Date of Service: May 03, 2017. Pt evaluation today including: conversation w/ patient, conversation w/ family (Mr. Luke was contacted via telephone.), physical exam, chart review, lab review, review of studies, conversation w/ client experience consultant, review of inpatient medication list, conversation w/ attending (Dr. Alvarado) History of Present Illness She is in good spirits today. Her breathing has improved but is not yet back to baseline. She denies chest pain, syncope, near-syncope, palpitations, or bleeding. She has been on diuretic therapy but her overall fluid balance for this hospitalization as of this morning was-176 mL, approximately, according to chart. Her believes that there is something wrong with her right lower lung, stating that the Lord has spoken to him. This was shared with other providers as per his wishes. Review of systems: As above. Social History Smoking Status: Never Smoker History of Alcohol Use: No Review of Systems Respiratory: + dyspnea on exertion, No cough, No sputum, No dyspnea at rest Cardiac: No chest pain, No edema, No palpitations Medications Current Inpatient Medications Medications (Trade) Dose Ordered Sig/Paul Route Start Time Stop Time Status Last Admin Dose Admin Acetaminophen (Tylenol Tab) 650 mg Q4H PRN PO 04/26/17 22:45 05/26/17 22:44 05/01/17 01:19 650 MG Nitroglycerin (Nitrostat Tab) 0.4 mg UD PRN SL 04/26/17 22:45 05/26/17 22:44 Dabigatran (Pradaxa Cap) 150 mg BID PO 04/27/17 09:00 05/27/17 08:59 05/03/17 07:42 150 MG Diltiazem HCl (TIAzac CAP) 180 mg BID PO 04/27/17 09:00 05/27/17 08:59 05/03/17 07:43 180 MG Levothyroxine Sodium (Synthroid Tab) 50 mcg DAILYBB PO 04/27/17 06:00 05/27/17 06:59 05/03/17 04:41 50 MCG Losartan Potassium (coZAAR TAB) 50 mg BID PO 04/27/17 09:00 05/27/17 08:59 05/03/17 07:42 50 MG Metoprolol Succinate (Toprol Xl Tab) 100 mg BID PO 04/27/17 09:00 05/27/17 08:59 05/03/17 07:41 100 MG Pravastatin Sodium (Pravachol Tab) 80 mg DAILY@17 PO 04/27/17 17:00 05/27/17 16:59 05/02/17 17:38 80 MG Ondansetron HCl (Zofran Inj) 4 mg Q6H PRN IV 04/26/17 22:45 05/26/17 22:44 04/29/17 12:34 4 MG Glucose (Glucose 40% Gel) UD PRN PO 04/26/17 22:45 05/26/17 22:44 Glucose (Glucose Chew Tab) 1 tabs UD PRN PO 04/26/17 22:45 05/26/17 22:44 Dextrose (Dextrose 50% 50ML Syringe) 50 ml UD PRN IV 04/26/17 22:45 05/26/17 22:44 Glucagon (Glucagon Inj) 1 mg UD PRN SQ 04/26/17 22:45 05/26/17 22:44 Budesonide (Pulmicort Respules 0.5MG/ 2ML Neb Soln) 0.5 mg BIDR INH 04/27/17 08:00 05/27/17 07:59 05/03/17 07:07 0.5 MG Ipratropium [place] (Atrovent 0.02% 0.5MG/2.5ML Neb) 0.5 mg Q2H PRN INH 04/27/17 00:45 05/27/17 00:44 Miscellaneous Information (Consult Glycemic Management Pharmacy) 1 ea UD PRN N/A 04/27/17 12:52 05/27/17 12:51 Insulin Glargine (Lantus Solostar Pen) BID SC 04/27/17 21:00 05/27/17 20:59 05/03/17 07:53 30 UNITS Insulin Aspart (novoLOG ASPART) SLIDING SCALE If C... ACHS SC 04/27/17 21:00 05/27/17 20:59 05/03/17 07:00 6 UNITS Cholecalciferol (Vitamin D Tab) 1,000 inter.unit QAM PO 04/30/17 09:00 05/30/17 08:59 05/03/17 07:43 1,000 INTER.UNIT Magnesium Oxide (Mag-Ox Tab) 400 mg BID PO 04/30/17 21:00 05/30/17 20:59 05/03/17 07:43 400 MG Levofloxacin (Levaquin Tab) 500 mg DAILY@1800 PO 05/01/17 18:00 05/08/17 17:59 05/02/17 17:40 500 MG Furosemide 40 mg/ Syringe 4 ml @ 4 mls/min BID17 IV 05/01/17 17:00 05/31/17 16:59 05/03/17 07:40 4 MLS/MIN Ipratropium [place] (Atrovent 0.02% 0.5MG/2.5ML Neb) 0.5 mg Q8R INH 05/02/17 16:00 06/01/17 15:59 05/03/17 07:07 0.5 MG Levalbuterol (Xopenex 0.63 Mg/ 3 Ml Neb) 0.63 mg Q2H PRN INH 05/02/17 10:45 05/27/17 00:44 Levalbuterol (Xopenex 0.63 Mg/ 3 Ml Neb) 0.63 mg Q8R INH 05/02/17 16:00 06/01/17 15:59 05/03/17 07:07 0.63 MG Prednisone (PredniSONE TAB) 40 mg DAILY PO 05/02/17 09:00 06/01/17 08:59 05/03/17 07:41 40 MG Digoxin (Lanoxin Tab) 0.125 mg DAILY@16 PO 05/03/17 16:00 06/02/17 15:59 Objective Vital Signs Past 12 Hours Date Time Temp Pulse Resp B/P (MAP) Pulse Ox O2 Delivery O2 Flow Rate FiO2 05/03/17 08:26 36.6 83 18 131/67 (88) 95 05/03/17 08:00 High Flow Oxygen 45.0 40 05/03/17 07:07 82 16 96 Nasal Cannula 45.0 40 05/03/17 04:15 36.4 78 18 126/75 (92) 96 05/03/17 04:00 High Flow Oxygen 45.0 40 05/02/17 23:59 High Flow Oxygen 45.0 40 05/02/17 23:49 36.6 87 20 119/63 (81) 95 High Flow Oxygen 05/02/17 23:18 83 16 95 Nasal Cannula 45.0 40 05/02/17 21:23 90 Last Recorded Weight-Kilograms: 82.000 Physical Exam Gen.: No acute distress. Alert and oriented. HEENT: Anicteric sclera. Neck: Mild JVD. Cardiac: No ventricular heave. Regular rate and rhythm. Normal S1-S2. No audible murmur. No rubs, or gallops. Pulmonary: Decreased breath sounds at the bases, with minimal rales. Abdomen: Soft, nontender, nondistended, with normoactive bowel sounds. No bruits noted. Extremities: 2+ radial pulses bilaterally. 2+ posterior tibialis pulses bilaterally. Trace bilateral lower extremity edema. No cyanosis. Psychiatric: Affect appears appropriate. Data Laboratory Results: Last 24 Hours Test 05/02/17 11:29 05/02/17 16:58 05/02/17 20:06 05/02/17 23:59 Bedside Glucose 316 mg/dl 189 mg/dl 223 mg/dl 257 mg/dl Test 05/03/17 04:20 05/03/17 05:51 05/03/17 06:52 Bedside Glucose 169 mg/dl 142 mg/dl Sodium Level 142 mmol/L Potassium Level 3.7 mmol/L Chloride Level 106 mmol/L Carbon Dioxide Level 28 mmol/L Anion Gap 8.0 mmol/L Blood Urea Nitrogen 25 mg/dl Creatinine 0.76 mg/dl Est Creatinine Clear Calc Drug Dose 64.5 ml/min Estimated GFR () 87.1 Estimated GFR (Non- 75.1 BUN/Creatinine Ratio 32.7 Random Glucose 143 mg/dl Calcium Level 9.7 mg/dl Echocardiogram images personally reviewed from 04/30/2017: Significantly reduced LV systolic function. Mitral regurgitation Moderate. Telemetry reviewed: Atrial fibrillation. Assessment and Plan ASSESSMENT/PLAN: 1. Acute on chronic systolic and diastolic CHF: Her LV systolic function is now significantly reduced. She does appear mildly hypervolemic. Despite diuretics, she has not been significantly diuresed throughout this hospitalization with relatively even fluid balance, although today he she is diuresing nicely. Despite this, she has shown significant improvement according to physicians and documents and her breathing. Recommend continue diuretic therapy but monitor closely for renal insufficiency as this has been a problem as an outpatient with even small increases in diuretics, with not necessarily great improvement in her symptoms. Continue low-sodium diet. Daily weights. Strict I&Os. 2. Cardiomyopathy: Etiology uncertain. It is not ischemic in origin. Tez level was unremarkable. Could be due to acute illness. She also has more significantly tachycardic according to records throughout this hospital stay. Tachycardia induced cardiomyopathy is also a possibility. Heart rate better controlled. Continue metoprolol succinate. Continue ARB. Will repeat echocardiogram in the future. 3. Mitral regurgitation: Her mitral regurgitation has not appear to be severe on multiple transthoracic studies as an outpatient as well as recent LV g on cardiac catheterization. Mitral regurgitation can worsen with heart failure. Will optimize her medically and repeat echo in the future. If there is concern for more significant mitral regurgitation at that time, can consider transesophageal echo but would hold off now given her respiratory issues. This was discussed with her in detail and she is in agreement. 4. Atrial fibrillation: Her heart rate was not well controlled earlier this hospitalization according to records. Her heart rate appears controlled today when she was evaluated this morning. Digoxin has been restarted. She has had digoxin toxicity in the past however that was due to confusion in her medication change and she doubled the medication rather than reducing it as instructed. Continue anticoagulation for stroke risk reduction. 5. Disposition: Cardiology will continue to follow. Patient care has been discussed with Dr. Cook and Dr. Alvarado.
--- NOTE | 2017-05-03 11:11 | Pulmonology Progress Note ---
Pulmonary Progress Note Date of Service May 03, 2017. Attending Dr. Cook Subjective The patient continues to feel a little better each day. She did not require BiPAP last night. She is feeling less short of breath. She is now on 40% FiO2 by high flow nasal. Her appetite remains good. Intake was just slightly greater than output yesterday but in spite of this she improved. Her appetite is good. Objective The patient is a 77-year-old female who looks well. She is cooperative and alert. She is sitting in a chair. Temperature is 36.6. Heart rate is 83. The rhythm is irregular. Blood pressure is 131/67. The lung ayala reveal a very slight vibratory rhonchi. She has mild rales at both bases. Respiratory rate is 18 breaths per minute. The oxygen saturation is 95% on the high flow oxygen. Extremities show no cyanosis clubbing or edema. Today's BUN is 25 with a creatinine of 0.76. These are slightly increased from yesterday. Assessment & Plan 1 bilateral pneumonia 2 CHF-systolic and diastolic 3 small pleural effusion 4 severe hypoxemia with shunt Comments and recommendations: The patient continues to improve. I believe we can start to give her a trial of nasal cannula and see if that is sufficient for her. She is not on oral prednisone. We'll continue the levofloxacin. Continue the neb treatments. Consider PT to ambulate the patient. Data Medications: Current Inpatient Medications Medications (Trade) Dose Ordered Sig/Paul Route Start Time Stop Time Status Last Admin Dose Admin Acetaminophen (Tylenol Tab) 650 mg Q4H PRN PO 04/26/17 22:45 05/26/17 22:44 05/01/17 01:19 650 MG Nitroglycerin (Nitrostat Tab) 0.4 mg UD PRN SL 04/26/17 22:45 05/26/17 22:44 Dabigatran (Pradaxa Cap) 150 mg BID PO 04/27/17 09:00 05/27/17 08:59 05/03/17 07:42 150 MG Diltiazem HCl (TIAzac CAP) 180 mg BID PO 04/27/17 09:00 05/27/17 08:59 05/03/17 07:43 180 MG Levothyroxine Sodium (Synthroid Tab) 50 mcg DAILYBB PO 04/27/17 06:00 05/27/17 06:59 05/03/17 04:41 50 MCG Losartan Potassium (coZAAR TAB) 50 mg BID PO 04/27/17 09:00 05/27/17 08:59 05/03/17 07:42 50 MG Metoprolol Succinate (Toprol Xl Tab) 100 mg BID PO 04/27/17 09:00 05/27/17 08:59 05/03/17 07:41 100 MG Pravastatin Sodium (Pravachol Tab) 80 mg DAILY@17 PO 04/27/17 17:00 05/27/17 16:59 05/02/17 17:38 80 MG Ondansetron HCl (Zofran Inj) 4 mg Q6H PRN IV 04/26/17 22:45 05/26/17 22:44 04/29/17 12:34 4 MG Glucose (Glucose 40% Gel) UD PRN PO 04/26/17 22:45 05/26/17 22:44 Glucose (Glucose Chew Tab) 1 tabs UD PRN PO 04/26/17 22:45 05/26/17 22:44 Dextrose (Dextrose 50% 50ML Syringe) 50 ml UD PRN IV 04/26/17 22:45 05/26/17 22:44 Glucagon (Glucagon Inj) 1 mg UD PRN SQ 04/26/17 22:45 05/26/17 22:44 Budesonide (Pulmicort Respules 0.5MG/ 2ML Neb Soln) 0.5 mg BIDR INH 04/27/17 08:00 05/27/17 07:59 05/03/17 07:07 0.5 MG Ipratropium [place] (Atrovent 0.02% 0.5MG/2.5ML Neb) 0.5 mg Q2H PRN INH 04/27/17 00:45 05/27/17 00:44 Miscellaneous Information (Consult Glycemic Management Pharmacy) 1 ea UD PRN N/A 04/27/17 12:52 05/27/17 12:51 Insulin Glargine (Lantus Solostar Pen) BID SC 04/27/17 21:00 05/27/17 20:59 05/03/17 07:53 30 UNITS Insulin Aspart (novoLOG ASPART) SLIDING SCALE If C... ACHS SC 04/27/17 21:00 05/27/17 20:59 05/03/17 07:00 6 UNITS Cholecalciferol (Vitamin D Tab) 1,000 inter.unit QAM PO 04/30/17 09:00 05/30/17 08:59 05/03/17 07:43 1,000 INTER.UNIT Magnesium Oxide (Mag-Ox Tab) 400 mg BID PO 04/30/17 21:00 05/30/17 20:59 05/03/17 07:43 400 MG Levofloxacin (Levaquin Tab) 500 mg DAILY@1800 PO 05/01/17 18:00 05/08/17 17:59 05/02/17 17:40 500 MG Furosemide 40 mg/ Syringe 4 ml @ 4 mls/min BID17 IV 05/01/17 17:00 05/31/17 16:59 05/03/17 07:40 4 MLS/MIN Ipratropium [place] (Atrovent 0.02% 0.5MG/2.5ML Neb) 0.5 mg Q8R INH 05/02/17 16:00 06/01/17 15:59 05/03/17 07:07 0.5 MG Levalbuterol (Xopenex 0.63 Mg/ 3 Ml Neb) 0.63 mg Q2H PRN INH 05/02/17 10:45 05/27/17 00:44 Levalbuterol (Xopenex 0.63 Mg/ 3 Ml Neb) 0.63 mg Q8R INH 05/02/17 16:00 06/01/17 15:59 05/03/17 07:07 0.63 MG Prednisone (PredniSONE TAB) 40 mg DAILY PO 05/02/17 09:00 06/01/17 08:59 05/03/17 07:41 40 MG Digoxin (Lanoxin Tab) 0.125 mg DAILY@16 PO 05/03/17 16:00 06/02/17 15:59 Vital Signs: Date Time Temp Pulse Resp B/P (MAP) Pulse Ox O2 Delivery O2 Flow Rate FiO2 05/03/17 08:26 36.6 83 18 131/67 (88) 95 05/03/17 08:00 High Flow Oxygen 45.0 40 05/03/17 07:07 82 16 96 Nasal Cannula 45.0 40 05/03/17 04:15 36.4 78 18 126/75 (92) 96 05/03/17 04:00 High Flow Oxygen 45.0 40 05/02/17 23:59 High Flow Oxygen 45.0 40 05/02/17 23:49 36.6 87 20 119/63 (81) 95 High Flow Oxygen 05/02/17 23:18 83 16 95 Nasal Cannula 45.0 40 05/02/17 21:23 90 05/02/17 20:00 High Flow Oxygen 45.0 40 05/02/17 19:30 36.6 81 18 115/61 (79) 97 High Flow Oxygen 50 05/02/17 19:08 79 18 98 Nasal Cannula 45.0 50 05/02/17 16:07 High Flow Oxygen 45.0 50 05/02/17 16:05 81 05/02/17 15:52 36.6 90 22 120/66 (84) 100 High Flow Oxygen 50 Nasal Cannula 05/02/17 15:05 100 18 98 Nasal Cannula 45.0 50 05/02/17 12:25 36.8 90 18 118/66 (83) 95 90 05/02/17 12:00 High Flow Oxygen 45.0 50 Laboratory Results: Last 24 Hours Test 05/02/17 11:29 05/02/17 16:58 05/02/17 20:06 05/02/17 23:59 Bedside Glucose 316 mg/dl 189 mg/dl 223 mg/dl 257 mg/dl Test 05/03/17 04:20 05/03/17 05:51 05/03/17 06:52 Bedside Glucose 169 mg/dl 142 mg/dl Sodium Level 142 mmol/L Potassium Level 3.7 mmol/L Chloride Level 106 mmol/L Carbon Dioxide Level 28 mmol/L Anion Gap 8.0 mmol/L Blood Urea Nitrogen 25 mg/dl Creatinine 0.76 mg/dl Est Creatinine Clear Calc Drug Dose 64.5 ml/min Estimated GFR () 87.1 Estimated GFR (Non- 75.1 BUN/Creatinine Ratio 32.7 Random Glucose 143 mg/dl Calcium Level 9.7 mg/dl
--- NOTE | 2017-05-03 13:07 | Pharmacy Progress Note ---
Glycemic: Assessment & Plan Date of Service May 03, 2017. Assessment & Plan Recent Pertinent Medications The patient is currently receiving: * Basal insulin: LANTUS SQ BID based on BSG * 10 units < 100 mg/dL * 30 units for BSG 100-200 mg/dL * 35 units for BSG >200 mg/dL * Bolus Insulin: NovoLog Correction per scale ACHS * Goal Range: Low 110 mg/dL - High 140 mg/dL * Correction Factor: 15 mg/dL/unit * Carb ratio of 1 unit per 5 grams CHO consumed Assessment & Plan ASSESSMENT: * See progress note from 04/27/17 for more background info, in short: * Pt receiving SQ basal/bolus insulin regimen for hyperglycemia secondary to baseline DM (outpatient regimen on hold),stress/infection. Prednisone 40mg PO Daily * Ms Luke received 154 units of insulin yesterday (large doses in response to IV Solu-Medrol) * ~70 units of basal insulin * ~84 units of prandial/correctional insulin * BSGs ranging 189-316 mg/dl over the past 24hrs * Changes needed to insulin regimen: * Continue to titrate CF and CR * continue with adjustable basal insulin PLAN FOR INPATIENT GLYCEMIC CONTROL: * Basal insulin: LANTUS SQ BID based on BSG * 10 units for BSG < 100 * 30 units for BSG 100-200 mg/dL * 35 units for BSG >200 mg/dL * Bolus insulin NovoLog per scale ACHS or Q6hrs while NPO * Goal Range: Low 110 mg/dL - High 140 mg/dL * Correction Factor: 12 mg/dL/unit * Carb ratio of 1 unit per 4 grams CHO consumed RECOMMENDATIONS FOR DISCHARGE: * Continue home regimen since A1c at goal * Please note that the plan above was derived based on current level of insulin resistance and hospital stress. These recommendations are appropriate for inpatient admission only. Plan of care upon discharge will need to be reassessed to avoid potential outpatient hypo/hyperglycemia.
--- NOTE | 2017-05-03 14:22 | Family Medicine Progress Note ---
Progress Note Date of Service May 03, 2017. Subjective Pt evaluation today including: conversation w/ patient, physical exam Pain: none PO Intake: good Voiding: no voiding problems Patient feeling less short of breath today Still on high flow oxygen, did not need bipap overnight Was told that she needs to start walking by physical therapy Constitutional: No fever, No chills, No sweats Respiratory: + cough (dry), + dyspnea on exertion, No sputum, No wheezing, No shortness of breath Cardiovascular: No chest pain, No orthopnea, No edema, No palpitations Abdomen: No pain, No nausea, No vomiting, No diarrhea, No constipation Skin: No rash, No itch, No new/changing skin lesions Medications Current Inpatient Medications Medications (Trade) Dose Ordered Sig/Paul Route Start Time Stop Time Status Last Admin Dose Admin Acetaminophen (Tylenol Tab) 650 mg Q4H PRN PO 04/26/17 22:45 05/26/17 22:44 05/01/17 01:19 650 MG Nitroglycerin (Nitrostat Tab) 0.4 mg UD PRN SL 04/26/17 22:45 05/26/17 22:44 Dabigatran (Pradaxa Cap) 150 mg BID PO 04/27/17 09:00 05/27/17 08:59 05/03/17 07:42 150 MG Diltiazem HCl (TIAzac CAP) 180 mg BID PO 04/27/17 09:00 05/27/17 08:59 05/03/17 07:43 180 MG Levothyroxine Sodium (Synthroid Tab) 50 mcg DAILYBB PO 04/27/17 06:00 05/27/17 06:59 05/03/17 04:41 50 MCG Losartan Potassium (coZAAR TAB) 50 mg BID PO 04/27/17 09:00 05/27/17 08:59 05/03/17 07:42 50 MG Metoprolol Succinate (Toprol Xl Tab) 100 mg BID PO 04/27/17 09:00 05/27/17 08:59 05/03/17 07:41 100 MG Pravastatin Sodium (Pravachol Tab) 80 mg DAILY@17 PO 04/27/17 17:00 05/27/17 16:59 05/02/17 17:38 80 MG Ondansetron HCl (Zofran Inj) 4 mg Q6H PRN IV 04/26/17 22:45 05/26/17 22:44 04/29/17 12:34 4 MG Glucose (Glucose 40% Gel) UD PRN PO 04/26/17 22:45 05/26/17 22:44 Glucose (Glucose Chew Tab) 1 tabs UD PRN PO 04/26/17 22:45 05/26/17 22:44 Dextrose (Dextrose 50% 50ML Syringe) 50 ml UD PRN IV 04/26/17 22:45 05/26/17 22:44 Glucagon (Glucagon Inj) 1 mg UD PRN SQ 04/26/17 22:45 05/26/17 22:44 Budesonide (Pulmicort Respules 0.5MG/ 2ML Neb Soln) 0.5 mg BIDR INH 04/27/17 08:00 05/27/17 07:59 05/03/17 07:07 0.5 MG Ipratropium [place] (Atrovent 0.02% 0.5MG/2.5ML Neb) 0.5 mg Q2H PRN INH 04/27/17 00:45 05/27/17 00:44 Miscellaneous Information (Consult Glycemic Management Pharmacy) 1 ea UD PRN N/A 04/27/17 12:52 05/27/17 12:51 Insulin Glargine (Lantus Solostar Pen) BID SC 04/27/17 21:00 05/27/17 20:59 05/03/17 07:53 30 UNITS Insulin Aspart (novoLOG ASPART) SLIDING SCALE If C... ACHS SC 04/27/17 21:00 05/27/17 20:59 05/03/17 12:11 12 UNITS Cholecalciferol (Vitamin D Tab) 1,000 inter.unit QAM PO 04/30/17 09:00 05/30/17 08:59 05/03/17 07:43 1,000 INTER.UNIT Magnesium Oxide (Mag-Ox Tab) 400 mg BID PO 04/30/17 21:00 05/30/17 20:59 05/03/17 07:43 400 MG Levofloxacin (Levaquin Tab) 500 mg DAILY@1800 PO 05/01/17 18:00 05/08/17 17:59 05/02/17 17:40 500 MG Furosemide 40 mg/ Syringe 4 ml @ 4 mls/min BID17 IV 05/01/17 17:00 05/31/17 16:59 05/03/17 07:40 4 MLS/MIN Ipratropium [place] (Atrovent 0.02% 0.5MG/2.5ML Neb) 0.5 mg Q8R INH 05/02/17 16:00 06/01/17 15:59 05/03/17 07:07 0.5 MG Levalbuterol (Xopenex 0.63 Mg/ 3 Ml Neb) 0.63 mg Q2H PRN INH 05/02/17 10:45 05/27/17 00:44 Levalbuterol (Xopenex 0.63 Mg/ 3 Ml Neb) 0.63 mg Q8R INH 05/02/17 16:00 06/01/17 15:59 05/03/17 07:07 0.63 MG Prednisone (PredniSONE TAB) 40 mg DAILY PO 05/02/17 09:00 06/01/17 08:59 05/03/17 07:41 40 MG Digoxin (Lanoxin Tab) 0.125 mg DAILY@16 PO 05/03/17 16:00 06/02/17 15:59 Objective Vital Signs Date Time Temp Pulse Resp B/P (MAP) Pulse Ox O2 Delivery O2 Flow Rate FiO2 05/03/17 11:38 High Flow Oxygen 45.0 40 05/03/17 11:30 36.8 79 20 129/62 (84) 95 05/03/17 08:26 36.6 83 18 131/67 (88) 95 05/03/17 08:00 High Flow Oxygen 45.0 40 05/03/17 07:07 82 16 96 Nasal Cannula 45.0 40 05/03/17 04:15 36.4 78 18 126/75 (92) 96 05/03/17 04:00 High Flow Oxygen 45.0 40 05/02/17 23:59 High Flow Oxygen 45.0 40 05/02/17 23:49 36.6 87 20 119/63 (81) 95 High Flow Oxygen 05/02/17 23:18 83 16 95 Nasal Cannula 45.0 40 05/02/17 21:23 90 05/02/17 20:00 High Flow Oxygen 45.0 40 05/02/17 19:30 36.6 81 18 115/61 (79) 97 High Flow Oxygen 50 05/02/17 19:08 79 18 98 Nasal Cannula 45.0 50 05/02/17 16:07 High Flow Oxygen 45.0 50 05/02/17 16:05 81 05/02/17 15:52 36.6 90 22 120/66 (84) 100 High Flow Oxygen 50 Nasal Cannula 05/02/17 15:05 100 18 98 Nasal Cannula 45.0 50 Physical Exam General Appearance: WD/WN, no apparent distress, + pertinent finding (has high flow oxygen in place) Neck: supple, no adenopathy, trachea midline, + JVD (to angle of mandible but decreased since yesterday), + pertinent finding (bilateral carotid bruits) Respiratory/Chest: no respiratory distress, no accessory muscle use, + crackles (at left base otherwise clear) Cardiovascular: no gallop, no murmur, + irregularly irregular Abdomen: normal bowel sounds, non tender, soft Extremities: no pedal edema, no calf tenderness Neurologic/Psychiatric: alert, normal mood/affect, oriented x 3 Skin: normal color, warm/dry, no rash Laboratory Results Results Past 24 Hours Test 05/02/17 16:58 05/02/17 20:06 05/02/17 23:59 05/03/17 04:20 Range/Units Bedside Glucose 189 223 257 169 70-90 mg/dl Test 05/03/17 05:51 05/03/17 06:52 05/03/17 11:23 Range/Units Sodium Level 142 136-145 mmol/L Potassium Level 3.7 3.5-5.1 mmol/L Chloride Level 106 98-107 mmol/L Carbon Dioxide Level 28 21-32 mmol/L Anion Gap 8.0 3-11 mmol/L Blood Urea Nitrogen 25 7-18 mg/dl Creatinine 0.76 0.60-1.20 mg/dl Est Creatinine Clear Calc Drug Dose 64.5 ml/min Estimated GFR () 87.1 Estimated GFR (Non- 75.1 BUN/Creatinine Ratio 32.7 10-20 Random Glucose 143 70-99 mg/dl Calcium Level 9.7 8.5-10.1 mg/dl Bedside Glucose 142 155 70-90 mg/dl Assessment and Plan 77 yo F p/w SOB admitted with acute resp failure due to worsening CHF. Patient feeling better despite suboptimal diuresis. She also continues to remain the same weight; however I question the accuracy of the bed scales. She is requiring less oxygen than yesterday and we will attempt to wean her to nasal cannula. I think it would be beneficial to get a repeat CT scan of her lungs later in her hospital after her oxygen requirements have decreased and she is requiring less diuresis. Fluid balance was +170 yesterday; however she has been urinating into the toilet therefore it would be difficult to assess if this is accurate. Acute Hypoxic Resp. failure - on high flow, 35%, decreasing requirements, will attempt to switch to nasal cannula today - On oral levaquin - solumedrol downgraded to 40mg PO - levalbuterol and ipratropium nebs q8 CHF - echo showed decreased EF to 25-30 with global hypokinesis and mild pulm hypertension (RVSP 30-40) - CXR shows improving CHF - lasix to 40mg bid IV - potassium supplementation given PO - monitor I/Os - cardiology consulted Afib - continue pradaxa, diltiazem and metoprolol - cardiology consulted and started digoxin .125 daily. Rates improved since starting this - home lasix held - patient on telemetry - check TSH tomorrow morning Hypomagnesemia - 2.2 - supplemental given PO Anemia - Hgb stable - continue to monitor Hypokalemia: - resolved - follow bmps's Hypercalcemia -resolved -PTH wnl -continue to follow RUL Nodule, Hx of Asbestos exposure will likely need further CT, outpatient PFTS DM -glycemic consult Hypothyroidism -c/w Synthroid HLD: - c/w Pravastatin DVT Proph - already on Pradaxa Resident Physician Supervision Note: I was present with PGY1 Dr. Mani Montiel during the history and exam. I discussed the case with the resident and agree with the findings and plan as documented in the note. Any exceptions or clarifications are listed here: TSH on 04/20/17 was normal; no repeat TSH planned. Pt continues to feel better. Minimal BARNES. HFNC downgraded to standard NC. Tele stable overnight with improved a. fib rates. VSS no fever gen - nad neck - JVD present but improved today heart - irregular, s1, s2, 1/6 systolic murmur LLSB lungs - bibasilar rales remain, no wheezes today abd - soft, NT ext - scant edema b/l BMP stable/acceptable A/P: 1. acute hypoxic respiratory failure - improved. Suspect multifactorial - acute/chronic CHF, +/- infectious/pneumonia, +/- inflammatory lung disease (continued high SED RATE AND CRP despite Rx for pneumonia). 2. abnormal chest imaging concerning for pulmonary edema vs other interstitial process - overall clinically improved. However, I's and O's don't suggest robust diuresis. Primary etiology?? 3. concern of pneumonia - less concern at this time. Finish levaquin. 4. RUL mass vs infiltrate. Future imaging will be needed to exclude cancer. 5. acute/chronic systolic CHF / biventricular CHF. EF is worse in comparison to just 2 months ago (on heart cath her EF was largely normal). Cont diuresis. daily BMP. 6. compensated hypothyroidism - TSH normal 03/2017. 7. a. fib - improved rates with addition of digoxin. Continue systemic anticoagulation. 8. 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 9. pulmonary HTN. 10. ?inflammatory lung process - cont steroids, defer management to pulmonary. consider repeat chest CT appreciate pulmonary and cardiology consults and recs. cont PT, OT. will likely need rehab after d/c. Documented By: Ziyad Mosqueda MD Continued [facility] stay due to: multiple IV medications needed
[2017-05-03] MEDS: IPRATROPIUM BROMIDE NEB SOLN 0.02% 2.5 ML VIAL INH PRN (15:29)
[2017-05-03] MEDS: DIGOXIN 0.125 MG TAB PO SCH (16:45)
[2017-05-03] MEDS: PRAVASTATIN SOD 40 MG TAB PO SCH (16:47)
[2017-05-03] MEDS: LEVOFLOXACIN 500 MG TAB PO SCH (16:47)
[2017-05-03 22:25] LABS: BUN/CREATININE RATIO 27.4 (10-20); CREATININE 0.94 mg/dl (0.60-1.20); POTASSIUM 3.8 mmol/L (3.5-5.1)
[2017-05-03 23:01] LABS: HEMATOCRIT 33.2 % (37-47); MEAN CELL VOLUME 88.1 fL (80-100); MEAN CORPUSCULAR HEMOGLOBIN 28.9 pg (25-34); MEAN CORPUSCULAR HGB CONC 32.8 g/dl (32-36); MEAN PLATELET VOLUME 9.8 fL (7.4-10.4); PLATELET COUNT 409 K/uL (130-400); RED BLOOD COUNT 3.77 M/uL (4.2-5.4); WHITE BLOOD COUNT 12.15 K/uL (4.8-10.8)
[2017-05-04] VITALS (10 sets, daily range): BP systolic 92–142; BP diastolic 54–81; PULSE 71–89; TEMP 36.5–36.8; O2SAT 92–97
[2017-05-04] MEDS: LEVOTHYROXINE 50 MCG TAB PO SCH (05:55)
[2017-05-04 06:08] LABS: MEAN CELL VOLUME 88.2 fL (80-100); MEAN CORPUSCULAR HEMOGLOBIN 29.5 pg (25-34); MEAN CORPUSCULAR HGB CONC 33.4 g/dl (32-36); MEAN PLATELET VOLUME 9.6 fL (7.4-10.4); PLATELET COUNT 415 K/uL (130-400); RED BLOOD COUNT 3.97 M/uL (4.2-5.4); WHITE BLOOD COUNT 12.52 K/uL (4.8-10.8)
[2017-05-04 06:40] LABS: BUN/CREATININE RATIO 26.5 (10-20); C-REACTIVE PROTEIN 3.93 mg/dl (0-0.29); CREATININE 0.75 mg/dl (0.60-1.20); POTASSIUM 3.3 mmol/L (3.5-5.1)
[2017-05-04] MEDS: LEVALBUTEROL 0.63MG/3 ML NEB INH SCH ×2 (07:06→15:36)
[2017-05-04] MEDS: BUDESONIDE 0.5 MG/2 ML VIAL (PULMICORT) INH SCH ×2 (07:06→19:00)
[2017-05-04] MEDS: IPRATROPIUM BROMIDE NEB SOLN 0.02% 2.5 ML VIAL INH SCH ×2 (07:06→15:36)
[2017-05-04] MEDS: DILTIAZEM HCL (TIAzac) 180 MG CAPCR PO SCH ×2 (07:36→21:22)
[2017-05-04] MEDS: FUROSEMIDE INJ 40 MG in SYRINGE 0 ML IV SCH ×2 (07:36→16:53)
[2017-05-04] MEDS: METOPROLOL SUCC 50MG EXT REL TAB PO SCH ×2 (07:36→21:21)
[2017-05-04] MEDS: CHOLECALCIFEROL 1000 INTER.UNIT TAB PO SCH (07:36)
[2017-05-04] MEDS: MAGNESIUM OXIDE 400 MG TAB PO SCH ×2 (07:36→21:21)
[2017-05-04] MEDS: LOSARTAN POTASSIUM 50 MG TAB PO SCH ×2 (07:36→21:22)
[2017-05-04] MEDS: DABIGATRAN ELEXILATE 75 MG CAP PO SCH ×2 (07:37→21:21)
[2017-05-04] MEDS: INSULIN ASPART 100 UNITS/ML 3 ML PEN SC SCH ×3 (08:00→21:32)
[2017-05-04] MEDS ORDERED: POTASSIUM CHLORIDE 10 MEQ TABCR PO STA (12:18)
--- NOTE | 2017-05-04 12:27 | Cardiology Follow-Up ---
Subjective Date of Service: May 04, 2017. Pt evaluation today including: conversation w/ patient, physical exam, chart review, lab review, review of inpatient medication list, conversation w/ attending History of Present Illness She denies chest pain. Shortness of breath has improved significantly. She still has dyspnea with exertion. She is tolerating nasal cannula. She denies orthopnea, syncope, near-syncope, palpitations, or edema. She denies any bleeding. She is hoping to go home soon. Review of systems: As above. Social History Smoking Status: Never Smoker History of Alcohol Use: No Review of Systems Respiratory: + cough (dry), + dyspnea on exertion, No sputum, No wheezing, No shortness of breath Cardiac: No chest pain, No orthopnea, No edema, No palpitations Medications Current Inpatient Medications Medications (Trade) Dose Ordered Sig/Paul Route Start Time Stop Time Status Last Admin Dose Admin Acetaminophen (Tylenol Tab) 650 mg Q4H PRN PO 04/26/17 22:45 05/26/17 22:44 05/01/17 01:19 650 MG Nitroglycerin (Nitrostat Tab) 0.4 mg UD PRN SL 04/26/17 22:45 05/26/17 22:44 Dabigatran (Pradaxa Cap) 150 mg BID PO 04/27/17 09:00 05/27/17 08:59 05/04/17 07:37 150 MG Diltiazem HCl (TIAzac CAP) 180 mg BID PO 04/27/17 09:00 05/27/17 08:59 05/04/17 07:36 180 MG Levothyroxine Sodium (Synthroid Tab) 50 mcg DAILYBB PO 04/27/17 06:00 05/27/17 06:59 05/04/17 05:55 50 MCG Losartan Potassium (coZAAR TAB) 50 mg BID PO 04/27/17 09:00 05/27/17 08:59 05/04/17 07:36 50 MG Metoprolol Succinate (Toprol Xl Tab) 100 mg BID PO 04/27/17 09:00 05/27/17 08:59 05/04/17 07:36 100 MG Pravastatin Sodium (Pravachol Tab) 80 mg DAILY@17 PO 04/27/17 17:00 05/27/17 16:59 05/03/17 16:47 80 MG Ondansetron HCl (Zofran Inj) 4 mg Q6H PRN IV 04/26/17 22:45 05/26/17 22:44 04/29/17 12:34 4 MG Glucose (Glucose 40% Gel) UD PRN PO 04/26/17 22:45 05/26/17 22:44 Glucose (Glucose Chew Tab) 1 tabs UD PRN PO 04/26/17 22:45 05/26/17 22:44 Dextrose (Dextrose 50% 50ML Syringe) 50 ml UD PRN IV 04/26/17 22:45 05/26/17 22:44 Glucagon (Glucagon Inj) 1 mg UD PRN SQ 04/26/17 22:45 05/26/17 22:44 Budesonide (Pulmicort Respules 0.5MG/ 2ML Neb Soln) 0.5 mg BIDR INH 04/27/17 08:00 05/27/17 07:59 05/04/17 07:06 0.5 MG Ipratropium [place] (Atrovent 0.02% 0.5MG/2.5ML Neb) 0.5 mg Q2H PRN INH 04/27/17 00:45 05/27/17 00:44 05/03/17 15:29 0.5 MG Miscellaneous Information (Consult Glycemic Management Pharmacy) 1 ea UD PRN N/A 04/27/17 12:52 05/27/17 12:51 Insulin Aspart (novoLOG ASPART) SLIDING SCALE If C... ACHS SC 04/27/17 21:00 05/27/17 20:59 05/03/17 20:50 5 UNITS Cholecalciferol (Vitamin D Tab) 1,000 inter.unit QAM PO 04/30/17 09:00 05/30/17 08:59 05/04/17 07:36 1,000 INTER.UNIT Magnesium Oxide (Mag-Ox Tab) 400 mg BID PO 04/30/17 21:00 05/30/17 20:59 05/04/17 07:36 400 MG Levofloxacin (Levaquin Tab) 500 mg DAILY@1800 PO 05/01/17 18:00 05/08/17 17:59 05/03/17 16:47 500 MG Furosemide 40 mg/ Syringe 4 ml @ 4 mls/min BID17 IV 05/01/17 17:00 05/31/17 16:59 05/04/17 07:36 4 MLS/MIN Ipratropium [place] (Atrovent 0.02% 0.5MG/2.5ML Neb) 0.5 mg Q8R INH 05/02/17 16:00 06/01/17 15:59 05/04/17 07:06 0.5 MG Levalbuterol (Xopenex 0.63 Mg/ 3 Ml Neb) 0.63 mg Q2H PRN INH 05/02/17 10:45 05/27/17 00:44 Levalbuterol (Xopenex 0.63 Mg/ 3 Ml Neb) 0.63 mg Q8R INH 05/02/17 16:00 06/01/17 15:59 05/04/17 07:06 0.63 MG Prednisone (PredniSONE TAB) 40 mg DAILY PO 05/02/17 09:00 06/01/17 08:59 05/04/17 07:37 40 MG Digoxin (Lanoxin Tab) 0.125 mg DAILY@16 PO 05/03/17 16:00 06/02/17 15:59 05/03/17 16:45 0.125 MG Insulin Glargine (Lantus Solostar Pen) SEE PROTOCOL BID SC 05/04/17 21:00 06/03/17 20:59 Objective Vital Signs Past 12 Hours Date Time Temp Pulse Resp B/P (MAP) Pulse Ox O2 Delivery O2 Flow Rate FiO2 05/04/17 11:40 36.5 88 18 139/72 (94) 96 05/04/17 08:00 Nasal Cannula 3.0 05/04/17 07:43 36.5 86 18 142/69 (93) 95 05/04/17 07:06 73 16 95 Nasal Cannula 4.0 05/04/17 04:29 36.8 71 18 128/81 (97) 93 Nasal Cannula 05/04/17 04:00 Nasal Cannula 4.0 Last Recorded Weight-Kilograms: 79.000 Intake & Output 05/03/17 05/04/17 05/05/17 08:00 08:00 08:00 Intake Total 1670 ml 1040 ml Output Total 1600 ml 2300 ml Balance 70 ml -1260 ml Physical Exam Gen.: No acute distress. Alert and oriented. HEENT: Anicteric sclera. Neck: No appreciable JVD. Cardiac: No ventricular heave. Irregularly irregular. Normal S1-S2. No audible murmur. No rubs, or gallops. Pulmonary: Decreased breath sounds at the bases, with scant rales. Abdomen: Soft, nontender, nondistended, with normoactive bowel sounds. No bruits noted. Extremities: 2+ radial pulses bilaterally. 2+ posterior tibialis pulses bilaterally. Trace right lower extremity edema. No cyanosis. Psychiatric: Affect appears appropriate. Data Laboratory Results: Last 24 Hours Test 05/03/17 16:18 05/03/17 20:41 05/03/17 21:52 05/04/17 05:44 Bedside Glucose 138 mg/dl 185 mg/dl White Blood Count 12.15 K/uL 12.52 K/uL Red Blood Count 3.77 M/uL 3.97 M/uL Hemoglobin 10.9 g/dL 11.7 g/dL Hematocrit 33.2 % 35.0 % Mean Corpuscular Volume 88.1 fL 88.2 fL Mean Corpuscular Hemoglobin 28.9 pg 29.5 pg Mean Corpuscular Hemoglobin Concent 32.8 g/dl 33.4 g/dl RDW Standard Deviation 46.9 fL 47.0 fL RDW Coefficient of Variation 14.4 % 14.5 % Platelet Count 409 K/uL 415 K/uL Mean Platelet Volume 9.8 fL 9.6 fL Sodium Level 139 mmol/L 141 mmol/L Potassium Level 3.8 mmol/L 3.3 mmol/L Chloride Level 103 mmol/L 105 mmol/L Carbon Dioxide Level 30 mmol/L 29 mmol/L Anion Gap 6.0 mmol/L 7.0 mmol/L Blood Urea Nitrogen 26 mg/dl 20 mg/dl Creatinine 0.94 mg/dl 0.75 mg/dl Est Creatinine Clear Calc Drug Dose 51.9 ml/min 64.2 ml/min Estimated GFR () 67.3 88.5 Estimated GFR (Non- 58.1 76.3 BUN/Creatinine Ratio 27.4 26.5 Random Glucose 150 mg/dl 58 mg/dl Calcium Level 10.0 mg/dl 10.0 mg/dl Erythrocyte Sedimentation Rate 70 mm/hr C-Reactive Protein 3.93 mg/dl Test 05/04/17 07:02 05/04/17 07:16 Bedside Glucose 62 mg/dl 74 mg/dl Telemetry reviewed: Atrial fibrillation. Rate reasonably controlled. Assessment and Plan ASSESSMENT/PLAN: 1. Acute on chronic systolic and diastolic CHF: Her LV systolic function is now significantly reduced. Continue Lasix 40 mg twice daily intravenously. Would reduced diuretics if she becomes pre renal or appears hypovolemic on exam. She appears to be approaching euvolemia. Continue low-sodium diet. Daily weights. Strict I&Os. 2. Cardiomyopathy: Etiology uncertain. It is not ischemic in origin. OVIDIO level was unremarkable. Could be due to acute illness. She also has more significantly tachycardic according to records throughout this hospital stay. Tachycardia induced cardiomyopathy is also a possibility. Heart rate better controlled. Continue metoprolol succinate and other rate-controlling medications. Continue ARB. Will repeat echocardiogram in the future. 3. Mitral regurgitation: Her mitral regurgitation has not appear to be severe on multiple transthoracic studies as an outpatient as well as recent LVgram on cardiac catheterization. Mitral regurgitation can worsen with heart failure. Will optimize her medically and repeat echo in the future. If there is concern for more significant mitral regurgitation at that time, can consider transesophageal echo but would hold off now given her respiratory issues. 4. Atrial fibrillation: Heart rate appears to be adequately controlled. Continue current rate controlling medications, including beta-mauricio, calcium channel mauricio, and digoxin. Continue anticoagulation for stroke risk reduction. 5. Hypokalemia: Potassium supplementation will be ordered. 6. Disposition: Cardiology will continue to follow. Patient care has been discussed Dr. Alvarado. I will be away from the hospital for the next 2 days. Please do not hesitate to contact the on-call computer clerk covering [facility] questions or concerns. Plan of care will be discussed with the continuous process rotary drum tanner computer clerk.
[2017-05-04] MEDS ORDERED: INSULIN ASPART 100 UNITS/ML 3 ML PEN SC SCH (13:30)
--- NOTE | 2017-05-04 13:40 | Pharmacy Progress Note ---
Glycemic Control Progress Note Date of Service May 04, 2017. Scope Glycemic Pharmacist consulted for glycemic control to write orders per [facility] inpatient glycemic control protocol. Objective Accuchecks BSG (last 24hrs): Test 05/03/17 16:18 05/03/17 20:41 05/03/17 21:52 05/04/17 05:44 Bedside Glucose 138 mg/dl (70-90) 185 mg/dl (70-90) Random Glucose 150 mg/dl (70-99) 58 mg/dl (70-99) Test 05/04/17 07:02 05/04/17 07:16 05/04/17 12:45 Bedside Glucose 62 mg/dl (70-90) 74 mg/dl (70-90) 283 mg/dl (70-90) Recent Pertinent Medications The patient is currently receiving: * Basal insulin: LANTUS SQ BID based on BSG * 10 units < 100 mg/dL * 30 units for BSG 100-200 mg/dL * 35 units for BSG >200 mg/dL * Bolus Insulin: NovoLog Correction per scale ACHS * Goal Range: Low 110 mg/dL - High 140 mg/dL * Correction Factor: 12 mg/dL/unit * Carb ratio of 1 unit per 4 grams CHO consumed Outpatient Anti-Diabetic Meds [place] 32 units SQ BID Metformin 1000 mg PO BID Assessment & Plan ASSESSMENT: * See progress note from 04/27/17 for more background info, in short: * Pt receiving SQ basal/bolus insulin regimen for hyperglycemia secondary to baseline DM (outpatient regimen on hold),stress/infection and Prednisone 40mg PO Daily * Ms Luke received 154 units of insulin on 05/02 --> 95 units on 05/03 (large doses in response to IV Solu-Medrol) * Hypoglycemic this AM (only on PO steroids now) * Changes needed to insulin regimen: * Continue to titrate CF and CR * Reduce basal insulin based on a total daily insulin requirement of ~60 units per day PLAN FOR INPATIENT GLYCEMIC CONTROL: * Basal insulin: LANTUS SQ BID based on BSG * 0 units for BSG < 100 * 15 units for BSG 100-200 mg/dL * 30 units for BSG >200 mg/dL * Bolus insulin NovoLog per scale ACHS or Q6hrs while NPO * Goal Range: Low 110 mg/dL - High 140 mg/dL * Correction Factor: 15 mg/dL/unit * Carb ratio of 1 unit per 5 grams CHO consumed RECOMMENDATIONS FOR DISCHARGE: * Continue home regimen since A1c at goal * Please note that the plan above was derived based on current level of insulin resistance and hospital stress. These recommendations are appropriate for inpatient admission only. Plan of care upon discharge will need to be reassessed to avoid potential outpatient hypo/hyperglycemia. Thank you.
--- NOTE | 2017-05-04 13:49 | Pulmonology Progress Note ---
Pulmonary Progress Note Date of Service May 04, 2017. Attending Dr. Cook Subjective The patient continues to feel better. She is requiring less and less oxygen supplementation. She is currently on 3 L of nasal cannula. She has been walking 2 the bathroom without assistance. She still has a dry cough. There is been no sputum. She is not having any pain. Her appetite remains good. Objective The patient is a 77-year-old female who appears comfortable. She was alert and oriented without any distress whatsoever. ENT exam is unremarkable. The patient's temperature is 36.5. Her last significant fever was 4 days ago. Heart rate was 88 bpm. The rhythm was irregular. Blood pressure is 139/72. Respiratory rate is 18 breaths per minute. Just a few Rales are heard posteriorly. Saturation was 96% on 3 L. There was no accessory muscle use. The abdomen was soft and nontender. Good bowel sounds were heard. Extremities showed no cyanosis clubbing or edema. White count today is 12.52. Hemoglobin is 11.7. Platelets are 415,000. Sedimentation rate today is still elevated at 70. This is despite treatment and being on steroids. Electrolytes show sodium 141 potassium 3.3 chloride 105 bicarbonate 29. The BUN is 20 with a creatinine of 0.75. C reactive protein is elevated at 3.93. This has improved. On the fourth it was 16.4 and on the 30th it was 18.9. Assessment & Plan 1 bilateral pneumonia 2 CHF-systolic and diastolic 3 small pleural effusion 4 severe hypoxemia with shunt - improved Comments and recommendations: The patient continues with her daily improvement. She is now on relatively low- dose nasal cannula. She remains on steroids, antibiotics, and nebulizer treatments as well as furosemide. It is very difficult to tell with the primary problem was at the time of admission. There is been significant improvement in the C reactive protein but no improvement in the sedimentation rate. Sedimentation rate does seem high considering she is better. I believe this will need to be followed over time as well her clinical course. I'm going to decrease her prednisone down to 30 mg per day. Would suggest physical therapy assist with her if they are not already. She likely may need a repeat on her CAT scan but I would wait to do this as an outpatient with a little more time for her treatment. I do see the patient in the office and would hope to see her about [address] Pham will be on this weekend. I would hope we could transition her prednisone downward and then off within a week or 2. We will then have to observe if she worsens after the steroids are off or not. We'll recheck an x-ray for tomorrow and do it in the x-ray department. Data Medications: Current Inpatient Medications Medications (Trade) Dose Ordered Sig/Paul Route Start Time Stop Time Status Last Admin Dose Admin Acetaminophen (Tylenol Tab) 650 mg Q4H PRN PO 04/26/17 22:45 05/26/17 22:44 05/01/17 01:19 650 MG Nitroglycerin (Nitrostat Tab) 0.4 mg UD PRN SL 04/26/17 22:45 05/26/17 22:44 Dabigatran (Pradaxa Cap) 150 mg BID PO 04/27/17 09:00 05/27/17 08:59 05/04/17 07:37 150 MG Diltiazem HCl (TIAzac CAP) 180 mg BID PO 04/27/17 09:00 05/27/17 08:59 05/04/17 07:36 180 MG Levothyroxine Sodium (Synthroid Tab) 50 mcg DAILYBB PO 04/27/17 06:00 05/27/17 06:59 05/04/17 05:55 50 MCG Losartan Potassium (coZAAR TAB) 50 mg BID PO 04/27/17 09:00 05/27/17 08:59 05/04/17 07:36 50 MG Metoprolol Succinate (Toprol Xl Tab) 100 mg BID PO 04/27/17 09:00 05/27/17 08:59 05/04/17 07:36 100 MG Pravastatin Sodium (Pravachol Tab) 80 mg DAILY@17 PO 04/27/17 17:00 05/27/17 16:59 05/03/17 16:47 80 MG Ondansetron HCl (Zofran Inj) 4 mg Q6H PRN IV 04/26/17 22:45 05/26/17 22:44 04/29/17 12:34 4 MG Glucose (Glucose 40% Gel) UD PRN PO 04/26/17 22:45 05/26/17 22:44 Glucose (Glucose Chew Tab) 1 tabs UD PRN PO 04/26/17 22:45 05/26/17 22:44 Dextrose (Dextrose 50% 50ML Syringe) 50 ml UD PRN IV 04/26/17 22:45 05/26/17 22:44 Glucagon (Glucagon Inj) 1 mg UD PRN SQ 04/26/17 22:45 05/26/17 22:44 Budesonide (Pulmicort Respules 0.5MG/ 2ML Neb Soln) 0.5 mg BIDR INH 04/27/17 08:00 05/27/17 07:59 05/04/17 07:06 0.5 MG Ipratropium [place] (Atrovent 0.02% 0.5MG/2.5ML Neb) 0.5 mg Q2H PRN INH 04/27/17 00:45 05/27/17 00:44 05/03/17 15:29 0.5 MG Miscellaneous Information (Consult Glycemic Management Pharmacy) 1 ea UD PRN N/A 04/27/17 12:52 05/27/17 12:51 Insulin Aspart (novoLOG ASPART) SLIDING SCALE If C... ACHS SC 04/27/17 21:00 05/27/17 20:59 Future hold 05/03/17 20:50 5 UNITS Cholecalciferol (Vitamin D Tab) 1,000 inter.unit QAM PO 04/30/17 09:00 05/30/17 08:59 05/04/17 07:36 1,000 INTER.UNIT Magnesium Oxide (Mag-Ox Tab) 400 mg BID PO 04/30/17 21:00 05/30/17 20:59 05/04/17 07:36 400 MG Levofloxacin (Levaquin Tab) 500 mg DAILY@1800 PO 05/01/17 18:00 05/08/17 17:59 05/03/17 16:47 500 MG Furosemide 40 mg/ Syringe 4 ml @ 4 mls/min BID17 IV 05/01/17 17:00 05/31/17 16:59 05/04/17 07:36 4 MLS/MIN Ipratropium [place] (Atrovent 0.02% 0.5MG/2.5ML Neb) 0.5 mg Q8R INH 05/02/17 16:00 06/01/17 15:59 05/04/17 07:06 0.5 MG Levalbuterol (Xopenex 0.63 Mg/ 3 Ml Neb) 0.63 mg Q2H PRN INH 05/02/17 10:45 05/27/17 00:44 Levalbuterol (Xopenex 0.63 Mg/ 3 Ml Neb) 0.63 mg Q8R INH 05/02/17 16:00 06/01/17 15:59 05/04/17 07:06 0.63 MG Prednisone (PredniSONE TAB) 40 mg DAILY PO 05/02/17 09:00 06/01/17 08:59 05/04/17 07:37 40 MG Digoxin (Lanoxin Tab) 0.125 mg DAILY@16 PO 05/03/17 16:00 06/02/17 15:59 05/03/17 16:45 0.125 MG Insulin Glargine (Lantus Solostar Pen) SEE PROTOCOL BID SC 05/04/17 21:00 06/03/17 20:59 Insulin Aspart (novoLOG ASPART) 12 units 1330 SC 05/04/17 13:30 05/04/17 14:00 Vital Signs: Date Time Temp Pulse Resp B/P (MAP) Pulse Ox O2 Delivery O2 Flow Rate FiO2 05/04/17 12:00 Nasal Cannula 3.0 05/04/17 11:40 36.5 88 18 139/72 (94) 96 05/04/17 08:00 Nasal Cannula 3.0 05/04/17 07:43 36.5 86 18 142/69 (93) 95 05/04/17 07:06 73 16 95 Nasal Cannula 4.0 05/04/17 04:29 36.8 71 18 128/81 (97) 93 Nasal Cannula 05/04/17 04:00 Nasal Cannula 4.0 05/04/17 00:04 36.7 81 16 115/73 (87) 95 Nasal Cannula 05/03/17 23:59 Nasal Cannula 4.0 05/03/17 20:00 Nasal Cannula 4.0 05/03/17 19:56 36.7 102 16 137/77 (97) 94 Nasal Cannula 4.0 05/03/17 19:00 90 16 96 Nasal Cannula 4.0 05/03/17 16:45 81 05/03/17 16:05 Nasal Cannula 5.0 05/03/17 15:29 81 16 94 Nasal Cannula 5.0 05/03/17 15:14 36.8 80 16 126/70 (88) 94 Nasal Cannula 5.0 Laboratory Results: Last 24 Hours Test 05/03/17 16:18 05/03/17 20:41 05/03/17 21:52 05/04/17 05:44 Bedside Glucose 138 mg/dl 185 mg/dl White Blood Count 12.15 K/uL 12.52 K/uL Red Blood Count 3.77 M/uL 3.97 M/uL Hemoglobin 10.9 g/dL 11.7 g/dL Hematocrit 33.2 % 35.0 % Mean Corpuscular Volume 88.1 fL 88.2 fL Mean Corpuscular Hemoglobin 28.9 pg 29.5 pg Mean Corpuscular Hemoglobin Concent 32.8 g/dl 33.4 g/dl RDW Standard Deviation 46.9 fL 47.0 fL RDW Coefficient of Variation 14.4 % 14.5 % Platelet Count 409 K/uL 415 K/uL Mean Platelet Volume 9.8 fL 9.6 fL Sodium Level 139 mmol/L 141 mmol/L Potassium Level 3.8 mmol/L 3.3 mmol/L Chloride Level 103 mmol/L 105 mmol/L Carbon Dioxide Level 30 mmol/L 29 mmol/L Anion Gap 6.0 mmol/L 7.0 mmol/L Blood Urea Nitrogen 26 mg/dl 20 mg/dl Creatinine 0.94 mg/dl 0.75 mg/dl Est Creatinine Clear Calc Drug Dose 51.9 ml/min 64.2 ml/min Estimated GFR () 67.3 88.5 Estimated GFR (Non- 58.1 76.3 BUN/Creatinine Ratio 27.4 26.5 Random Glucose 150 mg/dl 58 mg/dl Calcium Level 10.0 mg/dl 10.0 mg/dl Erythrocyte Sedimentation Rate 70 mm/hr C-Reactive Protein 3.93 mg/dl Test 05/04/17 07:02 05/04/17 07:16 05/04/17 12:45 Bedside Glucose 62 mg/dl 74 mg/dl 283 mg/dl
[2017-05-04 14:34] LABS: MYELOPEROXIDASE AB <1.0 AI (<1.0)
[2017-05-04] MEDS: DIGOXIN 0.125 MG TAB PO SCH (16:52)
[2017-05-04] MEDS: PRAVASTATIN SOD 40 MG TAB PO SCH (16:53)
[2017-05-04] MEDS: LEVOFLOXACIN 500 MG TAB PO SCH (16:54)
--- NOTE | 2017-05-04 17:52 | Family Medicine Progress Note ---
Progress Note Date of Service May 04, 2017. Subjective Pt evaluation today including: conversation w/ patient, physical exam, chart review, lab review, conversation w/ relationship consultant, review of inpatient medication list Pain: none PO Intake: good Voiding: no voiding problems patients breathing getting better each day oxygen requirements improving very close to euvolemia will continue with current medical course Constitutional: No fever, No chills Respiratory: + cough (dry), + dyspnea on exertion, No sputum, No dyspnea at rest Cardiovascular: No chest pain, No edema, No palpitations Abdomen: No pain, No nausea, No vomiting, No diarrhea, No constipation Female : + urinary frequency, No dysuria Skin: No rash, No itch, No new/changing skin lesions Medications Current Inpatient Medications Medications (Trade) Dose Ordered Sig/Paul Route Start Time Stop Time Status Last Admin Dose Admin Acetaminophen (Tylenol Tab) 650 mg Q4H PRN PO 04/26/17 22:45 05/26/17 22:44 05/01/17 01:19 650 MG Nitroglycerin (Nitrostat Tab) 0.4 mg UD PRN SL 04/26/17 22:45 05/26/17 22:44 Dabigatran (Pradaxa Cap) 150 mg BID PO 04/27/17 09:00 05/27/17 08:59 05/04/17 07:37 150 MG Diltiazem HCl (TIAzac CAP) 180 mg BID PO 04/27/17 09:00 05/27/17 08:59 05/04/17 07:36 180 MG Levothyroxine Sodium (Synthroid Tab) 50 mcg DAILYBB PO 04/27/17 06:00 05/27/17 06:59 05/04/17 05:55 50 MCG Losartan Potassium (coZAAR TAB) 50 mg BID PO 04/27/17 09:00 05/27/17 08:59 05/04/17 07:36 50 MG Metoprolol Succinate (Toprol Xl Tab) 100 mg BID PO 04/27/17 09:00 05/27/17 08:59 05/04/17 07:36 100 MG Pravastatin Sodium (Pravachol Tab) 80 mg DAILY@17 PO 04/27/17 17:00 05/27/17 16:59 05/04/17 16:53 80 MG Ondansetron HCl (Zofran Inj) 4 mg Q6H PRN IV 04/26/17 22:45 05/26/17 22:44 04/29/17 12:34 4 MG Glucose (Glucose 40% Gel) UD PRN PO 04/26/17 22:45 05/26/17 22:44 Glucose (Glucose Chew Tab) 1 tabs UD PRN PO 04/26/17 22:45 05/26/17 22:44 Dextrose (Dextrose 50% 50ML Syringe) 50 ml UD PRN IV 04/26/17 22:45 05/26/17 22:44 Glucagon (Glucagon Inj) 1 mg UD PRN SQ 04/26/17 22:45 05/26/17 22:44 Budesonide (Pulmicort Respules 0.5MG/ 2ML Neb Soln) 0.5 mg BIDR INH 04/27/17 08:00 05/27/17 07:59 05/04/17 07:06 0.5 MG Ipratropium [place] (Atrovent 0.02% 0.5MG/2.5ML Neb) 0.5 mg Q2H PRN INH 04/27/17 00:45 05/27/17 00:44 05/03/17 15:29 0.5 MG Miscellaneous Information (Consult Glycemic Management Pharmacy) 1 ea UD PRN N/A 04/27/17 12:52 05/27/17 12:51 Insulin Aspart (novoLOG ASPART) SLIDING SCALE If C... ACHS SC 04/27/17 21:00 05/27/17 20:59 Future hold 05/04/17 16:58 21 UNITS Cholecalciferol (Vitamin D Tab) 1,000 inter.unit QAM PO 04/30/17 09:00 05/30/17 08:59 05/04/17 07:36 1,000 INTER.UNIT Magnesium Oxide (Mag-Ox Tab) 400 mg BID PO 04/30/17 21:00 05/30/17 20:59 05/04/17 07:36 400 MG Levofloxacin (Levaquin Tab) 500 mg DAILY@1800 PO 05/01/17 18:00 05/08/17 17:59 05/04/17 16:54 500 MG Furosemide 40 mg/ Syringe 4 ml @ 4 mls/min BID17 IV 05/01/17 17:00 05/31/17 16:59 7/7/17 16:53 4 MLS/MIN Ipratropium [place] (Atrovent 0.02% 0.5MG/2.5ML Neb) 0.5 mg Q8R INH 05/02/17 16:00 06/01/17 15:59 05/04/17 15:36 0.5 MG Levalbuterol (Xopenex 0.63 Mg/ 3 Ml Neb) 0.63 mg Q2H PRN INH 05/02/17 10:45 05/27/17 00:44 Levalbuterol (Xopenex 0.63 Mg/ 3 Ml Neb) 0.63 mg Q8R INH 05/02/17 16:00 06/01/17 15:59 05/04/17 15:36 0.63 MG Digoxin (Lanoxin Tab) 0.125 mg DAILY@16 PO 05/03/17 16:00 06/02/17 15:59 05/04/17 16:52 0.125 MG Insulin Glargine (Lantus Solostar Pen) SEE PROTOCOL BID SC 05/04/17 21:00 06/03/17 20:59 Prednisone (PredniSONE TAB) 30 mg DAILY PO 05/05/17 09:00 06/01/17 08:59 Objective Vital Signs Date Time Temp Pulse Resp B/P (MAP) Pulse Ox O2 Delivery O2 Flow Rate FiO2 05/04/17 16:52 72 05/04/17 16:00 Room Air 05/04/17 15:46 36.8 72 18 115/71 (86) 96 05/04/17 15:40 84 16 97 Nasal Cannula 1.5 05/04/17 12:00 Nasal Cannula 3.0 05/04/17 11:40 36.5 88 18 139/72 (94) 96 05/04/17 08:00 Nasal Cannula 3.0 05/04/17 07:43 36.5 86 18 142/69 (93) 95 05/04/17 07:06 73 16 95 Nasal Cannula 4.0 05/04/17 04:29 36.8 71 18 128/81 (97) 93 Nasal Cannula 05/04/17 04:00 Nasal Cannula 4.0 05/04/17 00:04 36.7 81 16 115/73 (87) 95 Nasal Cannula 05/03/17 23:59 Nasal Cannula 4.0 05/03/17 20:00 Nasal Cannula 4.0 05/03/17 19:56 36.7 102 16 137/77 (97) 94 Nasal Cannula 4.0 05/03/17 19:00 90 16 96 Nasal Cannula 4.0 Physical Exam Notes: General Appearance: WD/WN, no apparent distress, + pertinent finding (on nasal cannula) Neck: supple, no adenopathy, trachea midline, + JVD (decreased to 1/3 elevated) , + pertinent finding (bilateral carotid bruits) Respiratory/Chest: no respiratory distress, no accessory muscle use, + crackles (bilateral) Cardiovascular: no gallop, tricuspid systolic murmurs (11/03) and mitral systolic murmur (11/03), + irregularly irregular Abdomen: normal bowel sounds, non tender, soft Extremities: no pedal edema, no calf tenderness Neurologic/Psychiatric: alert, normal mood/affect, oriented x 3 Skin: normal color, warm/dry, no rash Laboratory Results Results Past 24 Hours Test 05/03/17 20:41 05/03/17 21:52 05/04/17 05:44 05/04/17 07:02 Range/Units Bedside Glucose 185 62 70-90 mg/dl White Blood Count 12.15 12.52 4.8-10.8 K/uL Red Blood Count 3.77 3.97 4.2-5.4 M/uL Hemoglobin 10.9 11.7 12.0-16.0 g/dL Hematocrit 33.2 35.0 37-47 % Mean Corpuscular Volume 88.1 88.2 80-100 fL Mean Corpuscular Hemoglobin 28.9 29.5 25-34 pg Mean Corpuscular Hemoglobin Concent 32.8 33.4 32-36 g/dl RDW Standard Deviation 46.9 47.0 36.4-46.3 fL RDW Coefficient of Variation 14.4 14.5 11.5-14.5 % Platelet Count 409 415 130-400 K/uL Mean Platelet Volume 9.8 9.6 7.4-10.4 fL Sodium Level 139 141 136-145 mmol/L Potassium Level 3.8 3.3 3.5-5.1 mmol/L Chloride Level 103 105 98-107 mmol/L Carbon Dioxide Level 30 29 21-32 mmol/L Anion Gap 6.0 7.0 3-11 mmol/L Blood Urea Nitrogen 26 20 7-18 mg/dl Creatinine 0.94 0.75 0.60-1.20 mg/dl Est Creatinine Clear Calc Drug Dose 51.9 64.2 ml/min Estimated GFR () 67.3 88.5 Estimated GFR (Non- 58.1 76.3 BUN/Creatinine Ratio 27.4 26.5 10-20 Random Glucose 150 58 70-99 mg/dl Calcium Level 10.0 10.0 8.5-10.1 mg/dl Erythrocyte Sedimentation Rate 70 0-21 mm/hr C-Reactive Protein 3.93 0-0.29 mg/dl Test 05/04/17 07:16 05/04/17 12:45 05/04/17 16:12 Range/Units Bedside Glucose 74 283 298 70-90 mg/dl Assessment and Plan 77 yo F p/w SOB admitted with acute resp failure due to worsening CHF. CHF - echo showed decreased EF to 25-30 with global hypokinesis and mild pulm hypertension (RVSP 30-40) - CXR shows improving CHF - lasix to 40mg bid IV - potassium supplementation given PO - monitor I/Os - cardiology consulted Acute Hypoxic Resp. failure - switched to nasal cannula - On oral levaquin - solumedrol downgraded to 30mg PO - levalbuterol and ipratropium nebs q8 Afib - continue pradaxa, diltiazem and metoprolol - cardiology consulted and started digoxin .125 daily. Rates improved since starting this - home lasix held - patient on telemetry Hypomagnesemia - 2.2 - supplemental given PO Anemia - Hgb stable - continue to monitor Hypokalemia: - 3.3, given PO supplementation. 20meq bid - follow bmps's Hypercalcemia -resolved -PTH wnl -continue to follow RUL Nodule, - Hx of Asbestos exposure - will likely need further CT, outpatient PFTS DM -glycemic consult Hypothyroidism -c/w Synthroid HLD: - c/w Pravastatin DVT Proph - already on Pradaxa Resident Physician Supervision Note: I was present with PGY1 Dr. Mani Montiel during the history and exam. I discussed the case with the resident and agree with the findings and plan as documented in the note. Any exceptions or clarifications are listed here: none. Pt continues to feel better. Reports no cough, garvey, orthopnea, pnd, or wheeze. Tele stable with rate-controlled a.fib. VSS no fever net neg balance gen - nad neck - JVD present but again improved today heart - irregular, s1, s2, 1/6 systolic murmur LLSB lungs - bibasilar rales remain but less prominent (especially on left), no wheezes today abd - soft, NT ext - no edema BMP stable/acceptable A/P: 1. acute hypoxic respiratory failure - improved/resolved. Suspect multifactorial - acute/chronic CHF, +/- infectious/pneumonia, +/- inflammatory lung disease (continued high SED RATE AND CRP despite Rx for pneumonia). 2. abnormal chest imaging concerning for pulmonary edema vs other interstitial process - overall clinically improved. 3. concern of pneumonia - day 07/08 levaquin. 4. RUL mass vs infiltrate. Future imaging will be needed to exclude cancer. 5. acute/chronic systolic CHF / biventricular CHF - markedly improved. EF is worse in comparison to just 2 months ago (on heart cath her EF was largely normal). Cont diuresis. daily BMP. 6. compensated hypothyroidism - TSH normal 03/2017. 7. a. fib - improved rates with addition of digoxin. Continue systemic anticoagulation. 8. 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 9. pulmonary HTN. 10. ?inflammatory lung process - cont steroids, defer management to pulmonary. Steroids are being weaned. consider repeat chest CT following diuresis. appreciate pulmonary and cardiology consults and recs. cont PT, OT. patient may be able to return home at discharge. Documented By: Ziyad Mosqueda MD Continued [facility] stay due to: multiple IV medications needed
[2017-05-04] MEDS: IPRATROPIUM BROMIDE NEB SOLN 0.02% 2.5 ML VIAL INH PRN (19:08)
[2017-05-04] MEDS: LEVALBUTEROL 0.63MG/3 ML NEB INH PRN (19:08)
[2017-05-04] MEDS: POTASSIUM CHLORIDE 20 MEQ TABCR PO SCH (21:20)
[2017-05-04] MEDS: INSULIN GLARGINE SOLOSTAR 100 UNITS/ML 3 ML PEN SC SCH (21:33)
[2017-05-05] VITALS (8 sets, daily range): BP systolic 118–137; BP diastolic 64–68; PULSE 67–84; TEMP 36.5–36.9; O2SAT 91–100
[2017-05-05] MEDS: IPRATROPIUM BROMIDE NEB SOLN 0.02% 2.5 ML VIAL INH PRN ×2 (02:13→20:08)
[2017-05-05] MEDS: LEVOTHYROXINE 50 MCG TAB PO SCH (05:57)
[2017-05-05] MEDS: BUDESONIDE 0.5 MG/2 ML VIAL (PULMICORT) INH SCH ×2 (07:09→20:07)
[2017-05-05] MEDS: IPRATROPIUM BROMIDE NEB SOLN 0.02% 2.5 ML VIAL INH SCH ×3 (07:09→15:18)
[2017-05-05] MEDS: LEVALBUTEROL 0.63MG/3 ML NEB INH SCH ×2 (07:09→15:18)
[2017-05-05 07:25] LABS: BUN/CREATININE RATIO 26.2 (10-20); CALCIUM 9.3 mg/dl (8.5-10.1); CREATININE 0.76 mg/dl (0.60-1.20); POTASSIUM 3.5 mmol/L (3.5-5.1)
[2017-05-05] MEDS: FUROSEMIDE INJ 40 MG in SYRINGE 0 ML IV SCH (07:27)
[2017-05-05] MEDS: LOSARTAN POTASSIUM 50 MG TAB PO SCH ×2 (07:29→20:58)
[2017-05-05] MEDS: METOPROLOL SUCC 50MG EXT REL TAB PO SCH ×2 (07:30→20:58)
[2017-05-05] MEDS: DILTIAZEM HCL (TIAzac) 180 MG CAPCR PO SCH ×2 (07:30→20:58)
[2017-05-05] MEDS: POTASSIUM CHLORIDE 20 MEQ TABCR PO SCH ×2 (07:30→16:37)
[2017-05-05] MEDS: CHOLECALCIFEROL 1000 INTER.UNIT TAB PO SCH (07:30)
[2017-05-05] MEDS: MAGNESIUM OXIDE 400 MG TAB PO SCH ×2 (07:30→20:57)
[2017-05-05] MEDS: DABIGATRAN ELEXILATE 75 MG CAP PO SCH ×2 (07:30→20:57)
[2017-05-05] MEDS: INSULIN GLARGINE SOLOSTAR 100 UNITS/ML 3 ML PEN SC SCH ×2 (07:31→21:01)
[2017-05-05] MEDS: INSULIN ASPART 100 UNITS/ML 3 ML PEN SC SCH ×4 (07:35→21:00)
--- NOTE | 2017-05-05 09:25 | DIAGNOSTIC IMAGING REPORT ---
CHEST 2 VIEWS ROUTINE CLINICAL HISTORY: Congestive heart failure. Abnormal chest x-ray. COMPARISON STUDY: 05/02/2017 FINDINGS: The heart remains enlarged. There is resolving pulmonary vascular congestion. Linear left basilar opacities are likely atelectatic. There is no lobar consolidation. There are trace bilateral pleural effusions. [ IMPRESSION: Resolving congestive failure. No evidence of focal pulmonary consolidation Electronically signed by: Aj Rojo M.D. 05/05/2017 9:24 AM Dictated Date/Time: 05/05/2017 9:23 AM
--- NOTE | 2017-05-05 09:50 | Cardiology Follow-Up ---
Subjective General Date of Service: May 05, 2017. Pt evaluation today including: conversation w/ patient, chart review, lab review, review of studies History of Present Illness The patient is a 77 year old female Allergies Coded Allergies: Penicillins (Verified Allergy, Severe, RASH,SWELLING, 01/08/14) Social History Smoking Status: Never Smoker Hx Tobacco Use In Past Year?: No Hx Alcohol Use - Type And Amou: No Hx Substance Use - Type And Am: No Problem List Medical Problems: (1) Atrial fibrillation Status: Chronic (2) Atrial fibrillation with rapid ventricular response Status: Acute (3) Bradycardia Status: Acute (4) CHF (congestive heart failure) Status: Acute (5) Chronic anticoagulation Status: Chronic (6) Diarrhea Status: Acute (7) Dyslipidemia Status: Chronic (8) Hypothyroidism Status: Chronic (9) Pulmonary edema Status: Acute (10) Vomiting Status: Acute Review of Systems Respiratory: No cough, No shortness of breath, No dyspnea at rest Cardiac: + palpitations, No chest pain, No edema Additional ROS Details: Feeling better Physical Exam Vital Signs Last Vital Signs Documentation Date Time Temp Pulse Resp B/P (MAP) Pulse Ox O2 Delivery O2 Flow Rate FiO2 05/05/17 08:18 36.9 79 18 118/64 (82) 96 05/05/17 08:00 Room Air 05/05/17 07:10 1.5 05/03/17 11:38 40 Physical Exam Constitutional: Level of Distress: chronically ill Lungs: Auscultation: no wheezing, no rales/crackles, no rhonchi, decreased breath sounds (bases worse on right compared to left) Cardiovascular: Heart Auscultation: no murmurs, no rubs, irregular rate rhythm Peripheral Pulses: Carotid Pulse: normal on the left, normal on the right Abdomen: Inspection & Palpation: soft, non-distended, no tenderness, guarding & rebound Extremities: no edema Assessment and Plan Assessment and Plan Assessment and Plan ASSESSMENT/PLAN: 1. Acute on chronic systolic and diastolic CHF: Her LV systolic function is now significantly reduced. change Lasix to 40 mg PO twice daily from intravenous. She appears to be approaching euvolemia. Continue low-sodium diet. Daily weights. Strict I&Os. Will need higher diuretics with prednisone at home (previous home dose 40mg daily) 2. Cardiomyopathy: Etiology uncertain. It is not ischemic in origin with negative recent cath. May be from acute illness. carotid upstroke feels brisk today. continue CHF regiment 3. Mitral regurgitation and Tricuspid regurgitation.: 4. Atrial fibrillation: Heart rate appears to be adequately controlled. Continue current rate controlling medications, including beta-mauricio, calcium channel mauricio, and digoxin. Continue anticoagulation for stroke risk reduction. [employer] clearance normal with Pradaxa 5. Hypokalemia: Potassium supplementation will be ordered. ambulate to assess O2 needs and level of dyspnea; looks well today Laboratory Results Last 24 Hours Test 05/04/17 12:45 05/04/17 16:12 05/04/17 20:56 05/05/17 06:07 Bedside Glucose 283 mg/dl 298 mg/dl 278 mg/dl Sodium Level 141 mmol/L Potassium Level 3.5 mmol/L Chloride Level 103 mmol/L Carbon Dioxide Level 32 mmol/L Anion Gap 6.0 mmol/L Blood Urea Nitrogen 20 mg/dl Creatinine 0.76 mg/dl Est Creatinine Clear Calc Drug Dose 63.4 ml/min Estimated GFR () 87.1 Estimated GFR (Non- 75.1 BUN/Creatinine Ratio 26.2 Random Glucose 80 mg/dl Calcium Level 9.3 mg/dl Test 05/05/17 06:38 Bedside Glucose 84 mg/dl
--- NOTE | 2017-05-05 12:35 | Family Medicine Progress Note ---
Progress Note Date of Service May 05, 2017. Subjective Pt evaluation today including: conversation w/ patient, physical exam, conversation w/ media sales consultant, review of inpatient medication list Pain: none PO Intake: good Voiding: no voiding problems Patients breathing continuing to improve. CXR with improved CHF Patient now on room air and ambulating well Denies any chest pain, shortness of breath, palpitations, leg swelling or PND Constitutional: No fever, No chills, No weakness Respiratory: + cough, No sputum, No wheezing, No shortness of breath, No dyspnea on exertion Cardiovascular: No chest pain, No edema, No palpitations Abdomen: No pain, No nausea, No vomiting, No diarrhea, No constipation Musculoskeletal: No joint pain, No muscle pain, No swelling Female : No dysuria Medications Current Inpatient Medications Medications (Trade) Dose Ordered Sig/Paul Route Start Time Stop Time Status Last Admin Dose Admin Acetaminophen (Tylenol Tab) 650 mg Q4H PRN PO 04/26/17 22:45 05/26/17 22:44 05/01/17 01:19 650 MG Nitroglycerin (Nitrostat Tab) 0.4 mg UD PRN SL 04/26/17 22:45 05/26/17 22:44 Dabigatran (Pradaxa Cap) 150 mg BID PO 04/27/17 09:00 05/27/17 08:59 05/05/17 07:30 150 MG Diltiazem HCl (TIAzac CAP) 180 mg BID PO 04/27/17 09:00 05/27/17 08:59 05/05/17 07:30 180 MG Levothyroxine Sodium (Synthroid Tab) 50 mcg DAILYBB PO 04/27/17 06:00 05/27/17 06:59 05/05/17 05:57 50 MCG Losartan Potassium (coZAAR TAB) 50 mg BID PO 04/27/17 09:00 05/27/17 08:59 05/05/17 07:29 50 MG Metoprolol Succinate (Toprol Xl Tab) 100 mg BID PO 04/27/17 09:00 05/27/17 08:59 05/05/17 07:30 100 MG Pravastatin Sodium (Pravachol Tab) 80 mg DAILY@17 PO 04/27/17 17:00 05/27/17 16:59 05/04/17 16:53 80 MG Ondansetron HCl (Zofran Inj) 4 mg Q6H PRN IV 04/26/17 22:45 05/26/17 22:44 04/29/17 12:34 4 MG Glucose (Glucose 40% Gel) UD PRN PO 04/26/17 22:45 05/26/17 22:44 Glucose (Glucose Chew Tab) 1 tabs UD PRN PO 04/26/17 22:45 05/26/17 22:44 Dextrose (Dextrose 50% 50ML Syringe) 50 ml UD PRN IV 04/26/17 22:45 05/26/17 22:44 Glucagon (Glucagon Inj) 1 mg UD PRN SQ 04/26/17 22:45 05/26/17 22:44 Budesonide (Pulmicort Respules 0.5MG/ 2ML Neb Soln) 0.5 mg BIDR INH 04/27/17 08:00 05/27/17 07:59 05/05/17 07:09 0.5 MG Ipratropium [place] (Atrovent 0.02% 0.5MG/2.5ML Neb) 0.5 mg Q2H PRN INH 04/27/17 00:45 05/27/17 00:44 05/04/17 19:08 0.5 MG Miscellaneous Information (Consult Glycemic Management Pharmacy) 1 ea UD PRN N/A 04/27/17 12:52 05/27/17 12:51 Insulin Aspart (novoLOG ASPART) SLIDING SCALE If C... ACHS SC 04/27/17 21:00 05/27/17 20:59 Future hold 05/05/17 07:35 4 UNITS Cholecalciferol (Vitamin D Tab) 1,000 inter.unit QAM PO 04/30/17 09:00 05/30/17 08:59 05/05/17 07:30 1,000 INTER.UNIT Magnesium Oxide (Mag-Ox Tab) 400 mg BID PO 04/30/17 21:00 05/30/17 20:59 05/05/17 07:30 400 MG Ipratropium [place] (Atrovent 0.02% 0.5MG/2.5ML Neb) 0.5 mg Q8R INH 05/02/17 16:00 06/01/17 15:59 05/05/17 07:09 0.5 MG Levalbuterol (Xopenex 0.63 Mg/ 3 Ml Neb) 0.63 mg Q2H PRN INH 05/02/17 10:45 05/27/17 00:44 05/04/17 19:08 0.63 MG Levalbuterol (Xopenex 0.63 Mg/ 3 Ml Neb) 0.63 mg Q8R INH 05/02/17 16:00 06/01/17 15:59 05/05/17 07:09 0.63 MG Digoxin (Lanoxin Tab) 0.125 mg DAILY@16 PO 05/03/17 16:00 06/02/17 15:59 05/04/17 16:52 0.125 MG Insulin Glargine (Lantus Solostar Pen) SEE PROTOCOL BID SC 05/04/17 21:00 06/03/17 20:59 05/04/17 21:33 30 UNITS Prednisone (PredniSONE TAB) 30 mg DAILY PO 05/05/17 09:00 06/01/17 08:59 05/05/17 07:30 30 MG Potassium Chloride (Klor-Con Tab) 20 meq BIDM PO 05/04/17 21:00 06/03/17 20:59 05/05/17 07:30 20 MEQ Furosemide (Lasix Tab) 40 mg BID17 PO 05/05/17 17:00 06/04/17 16:59 Objective Vital Signs Date Time Temp Pulse Resp B/P (MAP) Pulse Ox O2 Delivery O2 Flow Rate FiO2 05/05/17 12:00 Room Air 05/05/17 11:34 36.7 84 16 120/67 (84) 96 Room Air 05/05/17 08:18 36.9 79 18 118/64 (82) 96 05/05/17 08:00 Room Air 05/05/17 07:10 72 16 96 Room Air 1.5 05/05/17 04:00 Room Air 05/05/17 03:15 36.7 68 18 132/66 (88) 91 Room Air 05/04/17 23:59 Room Air 05/04/17 23:05 36.8 86 18 92/54 (67) 93 Room Air 05/04/17 20:00 Room Air 05/04/17 19:16 36.6 89 20 136/79 (98) 95 Room Air 05/04/17 19:00 89 18 92 Room Air 05/04/17 16:52 72 05/04/17 16:00 Room Air 05/04/17 15:46 36.8 72 18 115/71 (86) 96 05/04/17 15:40 84 16 97 Nasal Cannula 1.5 Physical Exam Notes: General Appearance: WD/WN, no apparent distress, oxygenating well at room air Neck: supple, no adenopathy, trachea midline, JVD not elevated, no carotid bruits Respiratory/Chest: no respiratory distress, no accessory muscle use, mild crackles at the bases bilaterally Cardiovascular: no gallop, nor murmurs, + irregularly irregular Abdomen: normal bowel sounds, non tender, soft Extremities: no pedal edema, no calf tenderness Neurologic/Psychiatric: alert, normal mood/affect, oriented x 3 Skin: normal color, warm/dry, no rash Laboratory Results Results Past 24 Hours Test 05/04/17 12:45 05/04/17 16:12 05/04/17 20:56 05/05/17 06:07 Range/Units Bedside Glucose 283 298 278 70-90 mg/dl Sodium Level 141 136-145 mmol/L Potassium Level 3.5 3.5-5.1 mmol/L Chloride Level 103 98-107 mmol/L Carbon Dioxide Level 32 21-32 mmol/L Anion Gap 6.0 3-11 mmol/L Blood Urea Nitrogen 20 7-18 mg/dl Creatinine 0.76 0.60-1.20 mg/dl Est Creatinine Clear Calc Drug Dose 63.4 ml/min Estimated GFR () 87.1 Estimated GFR (Non- 75.1 BUN/Creatinine Ratio 26.2 10-20 Random Glucose 80 70-99 mg/dl Calcium Level 9.3 8.5-10.1 mg/dl Test 05/05/17 06:38 05/05/17 11:12 Range/Units Bedside Glucose 84 140 70-90 mg/dl Assessment and Plan 77 yo F p/w SOB admitted with acute resp failure due to worsening CHF. CHF - echo showed decreased EF to 25-30 with global hypokinesis and mild pulm hypertension (RVSP 30-40) - CXR shows improving CHF - lasix switched from IV to PO 40mg - potassium supplementation given PO - monitor I/Os - cardiology consulted Acute Hypoxic Resp. failure - on room air - stopped levaquin (been on AB for 10 days) - solumedrol 30mg PO - levalbuterol and ipratropium nebs q8 Afib - continue pradaxa, diltiazem and metoprolol - cardiology consulted and started digoxin .125 daily. Rates improved since starting this - patient on telemetry Anemia - Hgb stable - continue to monitor Hypokalemia: resolved - 3.5, given PO supplementation. 20meq bid - follow bmps's Hypercalcemia -resolved -PTH wnl -continue to follow RUL Nodule, - Hx of Asbestos exposure - will likely need further CT, outpatient PFTS DM -glycemic consult Hypothyroidism -c/w Synthroid HLD: - c/w Pravastatin DVT Proph - already on Pradaxa Resident Physician Supervision Note: I was present with PGY1 Dr. Mani Montiel during the history and exam. I discussed the case with the resident and agree with the findings and plan as documented in the note. Any exceptions or clarifications are listed here: none. Pt w/o ANY orthopnea, pnd, or sob/garvey. Tele stable with rate-controlled a.fib. Feels good and anxious to get home. VSS no fever net neg balance once again gen - nad neck - JVD resolved heart - irregular, s1, s2, 1/6 systolic murmur LLSB lungs - right basilar rales, left lung clear, no wheeze abd - soft, NT ext - no edema BMP stable/acceptable A/P: 1. acute hypoxic respiratory failure - improved/resolved. Suspect multifactorial - acute/chronic CHF, +/- infectious/pneumonia, +/- inflammatory lung disease (had continued high SED RATE AND CRP despite Rx for pneumonia). 2. abnormal chest imaging concerning for pulmonary edema vs other interstitial process - overall clinically improved and radiographically improved. 3. concern of pneumonia - day 08/07 levaquin. Stop abx today. 4. RUL mass vs infiltrate. Future imaging will be needed to exclude cancer. 5. acute/chronic systolic CHF / biventricular CHF - markedly improved. EF is worse in comparison to just 2 months ago (on heart cath her EF was largely normal). Agree she is near-euvolemia. Stop IV lasix; transition to lasix 40 BID by mouth. 6. compensated hypothyroidism - TSH normal 03/2017. 7. a. fib - improved rates with addition of digoxin. Continue systemic anticoagulation. 8. 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 9. pulmonary HTN. 10. ?inflammatory lung process - cont steroids, defer management to pulmonary. Steroids are being weaned. consider repeat chest CT following diuresis. appreciate pulmonary and cardiology consults and recs. cont PT, OT. possible d/c tomorrow ?? Documented By: Ziyad Mosqueda MD Discharge planning: home with home health
--- NOTE | 2017-05-05 15:18 | Pharmacy Progress Note ---
Glycemic Control Progress Note Date of Service May 05, 2017. Scope Glycemic Pharmacist consulted for glycemic control to write orders per [facility] inpatient glycemic control protocol. Objective Accuchecks BSG (last 24hrs): Test 05/04/17 16:12 05/04/17 20:56 05/05/17 06:07 05/05/17 06:38 Bedside Glucose 298 mg/dl (70-90) 278 mg/dl (70-90) 84 mg/dl (70-90) Random Glucose 80 mg/dl (70-99) Test 05/05/17 11:12 Bedside Glucose 140 mg/dl (70-90) HbA1c: 6.8% 01/29/17 Recent Pertinent Medications The patient is currently receiving: * Basal insulin: Lantus SQ BID: 15 units if BSG 100-199; 30 units if BSG 200 or greater * Correctional Insulin: Novolog Correction per scale ACHS Goal Range: Low 110 mg/dL - High 140 mg/dL Correction Factor: 15 mg/dL/unit * Prandial insulin: Per carb ratio of 1 unit per 5 grams CHO consumed * Oral Agents: None currently Outpatient Anti-Diabetic Meds Metformin 1gm PO BID Toujeo 32 units SQ BID Assessment & Plan ASSESSMENT: * See progress note from 04/27/17 for more background info, in short: * Pt receiving SQ basal bolus insulin regimen for hyperglycemia secondary to type 2 DM at baseline, infection, and steroid provision, although steroid dose was reduced today * Patient received ~ of 81 units of insulin over the last 24 hrs (she did consume 3 meals and bedtime snack yesterday) * 30 units of basal insulin given * 51 units of prandial/correctional insulin * BSGs ranging 58 - 298 mg/dl over the past 24hrs (58 was a fasting AM BSG 05/04 with 60 units Lantus on board) * Changes needed to insulin regimen: * AM Fasting BSG = 80-84 mg/dl. This is in slightly below goal range for patient based on inpatient targets and co-morbidities. Therefore Basal insulin needs reduced. I suspect the effects of Prednisone are wearing off overnight and BSGs are falling as a result. Will reduce the current Lantus order and continue a scale to guide dosing due to changing insulin sensitivity in light of tapering dose of Prednisone * Post-prandial BSGs were elevated yesterday, possibly due to missing both Lantus dose in the AM yesterday and a small prandial insulin dose w/ breakfast secondary to AM hypoglycemia. Today however the post-prandial BSG is improved pre-lunch. Given the step down in steroid today will loosen CF/CR doses * Additional notes / comments: PLAN FOR INPATIENT GLYCEMIC CONTROL: * Decreasing Lantus SQ BID to 12 units for BSG 100-140, 24 units for BSG 141 or greater * Changing correction factor to 18 mg/dl/unit * Changing carb ratio to 1 unit per 6 grams CHO consumed * Continuing goal range of Low 110 mg/dL - High 140 mg/dL * Reeval insulin doses with each step down in steroid dose * Please note that the plan above was derived based on current level of insulin resistance and hospital stress. These recommendations are appropriate for inpatient admission only. Plan of care upon discharge will need to be reassessed to avoid potential outpatient hypo/hyperglycemia. Thank you.
[2017-05-05] MEDS: FUROSEMIDE 40 MG TAB PO SCH (16:37)
[2017-05-05] MEDS: DIGOXIN 0.125 MG TAB PO SCH (16:38)
[2017-05-05] MEDS: PRAVASTATIN SOD 40 MG TAB PO SCH (16:42)
[2017-05-05 17:21] LABS: BUN/CREATININE RATIO 25.4 (10-20); CREATININE 0.96 mg/dl (0.60-1.20); POTASSIUM 4.6 mmol/L (3.5-5.1)
[2017-05-05] MEDS: LEVALBUTEROL 0.63MG/3 ML NEB INH PRN (20:08)
[2017-05-06] VITALS: BP 148/74; PULSE 82; TEMP 36.8; O2SAT 92
[2017-05-06 03:36] VITALS: BP 147/84; PULSE 73; TEMP 36.9; O2SAT 96
[2017-05-06] MEDS: LEVOTHYROXINE 50 MCG TAB PO SCH (05:52)
[2017-05-06 05:55] LABS: MEAN CELL VOLUME 87.9 fL (80-100); MEAN CORPUSCULAR HEMOGLOBIN 29.2 pg (25-34); MEAN CORPUSCULAR HGB CONC 33.2 g/dl (32-36); MEAN PLATELET VOLUME 9.6 fL (7.4-10.4); PLATELET COUNT 460 K/uL (130-400); RED BLOOD COUNT 4.21 M/uL (4.2-5.4); WHITE BLOOD COUNT 14.49 K/uL (4.8-10.8)
[2017-05-06] MEDS: DABIGATRAN ELEXILATE 75 MG CAP PO SCH (07:20)
[2017-05-06] MEDS: FUROSEMIDE 40 MG TAB PO SCH (07:20)
[2017-05-06] MEDS: LOSARTAN POTASSIUM 50 MG TAB PO SCH (07:20)
[2017-05-06] MEDS: CHOLECALCIFEROL 1000 INTER.UNIT TAB PO SCH (07:20)
[2017-05-06] MEDS: POTASSIUM CHLORIDE 20 MEQ TABCR PO SCH (07:20)
[2017-05-06] MEDS: DILTIAZEM HCL (TIAzac) 180 MG CAPCR PO SCH (07:20)
[2017-05-06] MEDS: METOPROLOL SUCC 50MG EXT REL TAB PO SCH (07:21)
[2017-05-06 07:24] VITALS: BP 142/77; PULSE 75; TEMP 36.7; O2SAT 94
[2017-05-06 07:26] LABS: BUN/CREATININE RATIO 27.3 (10-20); CALCIUM 9.5 mg/dl (8.5-10.1); CREATININE 0.85 mg/dl (0.60-1.20); POTASSIUM 3.9 mmol/L (3.5-5.1)
[2017-05-06] MEDS: MAGNESIUM OXIDE 400 MG TAB PO SCH (07:27)
[2017-05-06] MEDS: INSULIN ASPART 100 UNITS/ML 3 ML PEN SC SCH ×2 (07:30→12:19)
[2017-05-06] MEDS: INSULIN GLARGINE SOLOSTAR 100 UNITS/ML 3 ML PEN SC SCH (07:31)
[2017-05-06 07:32] VITALS: PULSE 76; O2SAT 95
[2017-05-06] MEDS: BUDESONIDE 0.5 MG/2 ML VIAL (PULMICORT) INH SCH (07:32)
[2017-05-06] MEDS: IPRATROPIUM BROMIDE NEB SOLN 0.02% 2.5 ML VIAL INH SCH (07:32)
[2017-05-06] MEDS: LEVALBUTEROL 0.63MG/3 ML NEB INH SCH (07:32)
[2017-05-06] MEDS ORDERED: MCRK20 PO (10:58)
[2017-05-06] MEDS ORDERED: FRS/40 PO (10:58)
[2017-05-06] MEDS ORDERED: PRD10 PO (10:58)
--- NOTE | 2017-05-06 11:11 | Discharge Instructions ---
Discharge Instructions Date of Service May 06, 2017. Admission Reason for Admission: Acute Respiratory Failure With Hypoxia Discharge Discharge Diagnosis / Problem: Ccongestive Heart Failure Discharge Goals Goal(s): Decrease discomfort, Therapeutic intervention, Prevent Disease Progression Activity Recommendations Activity Limitations: per Instructions/Follow-up section . Instructions / Follow-Up Instructions / Follow-Up Call 911 and go to the Emergency Room if: * You have tightness or pain in your chest that does not go away with rest or Nitroglycerin * You are very short of breath even with rest Call your doctor if any of the following symptoms or problems start or get worse: * Shortness of breath or difficulty breathing * Wake up at night short of breath * Chest pain * Cough * Swelling of your hands, fee, or legs * More fatigued or tired with your normal activity * Palpitations - sudden fast heart beats WEIGHT * Weigh yourself every morning after using the bathroom. * Use the same scale. * Wear the same amount of clothing. * Write your weight down on your chart. * Call your doctor if you gain more than 2-3 pounds in 1-2 days. MEDICATIONS * Use this discharge instruction sheet for instructions. * Take your medications at the time your doctor ordered. * Do not skip a dose of your medicines. * If you miss a dose of medicine, take as soon as possible, but DO NOT DOUBLE A DOSE. * Read your medicine information when you get home. * Know all of the side effects of your medicine. * Call your doctor's office if you have any side effects. * Be sure all of your doctors know what medicine and herbs you take (including cold, flu, and herbal medicine). * Pain Medicine: If you do not get relief from your pain, please call your doctor for help. Take the following with you to your follow-up doctor appointments: * Weight Chart * Medication List * List of questions Do not drink excessive alcohol, beer or wine. Please follow up with Dr. Turner in his office this week You will also need to follow up with your PCP this week We will be giving you a tapering dose of steroids. Please take these for 6 days as instructed. We have also increased your lasix dose to twice daily. We have sent your medications to the pharmacy Current Hospital Diet Patient's current hospital diet: AHA Diet (Heart Healthy), Diabetes Type 2 Diet Discharge Diet Recommended Diet: Low Sodium Diet (2gm Na) Pending Studies Studies pending at discharge: no Medical Emergencies . Who to Call and When: Medical Emergencies: If at any time you feel your situation is an emergency, please call 911 immediately. . Non-Emergent Contact Non-Emergency issues call your: Primary Care Provider, Sliver Cutter . . "Provider Documentation" section prepared by Mani Montiel. . VTE Core Measure Inpt VTE Proph given/why not?: Other Anticoagulation (Pradaxa)
[2017-05-06] MEDS ORDERED: LNX125 PO (11:12)
[2017-05-06] MEDS ORDERED: MGNO400 PO (11:42)
[2017-05-06 11:57] VITALS: BP 140/69; PULSE 72; TEMP 36.6; O2SAT 96
[2017-05-06 13:19] VITALS: BP 140/69; PULSE 72; TEMP 36.6; O2SAT 96
--- NOTE | 2017-05-06 15:17 | Pulmonology Progress Note ---
Pulmonary Progress Note Date of Service May 06, 2017. Attending Dr. Pham Subjective Patient is greatly improved she notes her last 48 hours Objective 77-year-old female admitted with progressive shortness of breath with notable cardiac dysfunction and right upper lobe mass: VS I/Os: last 24: -900cc, Total: -4.8L SaO2: 92-95%% FiO2: RA RR: 18 RESP: Mild expiratory rhonchi CARD: S1 and S2 distant heart sounds EXT: No notable edema LABS: WBC: 1X0U--15C ESR: 648199 CRP: [id number] PLT: [id number] aPPT: 47.6 (04/29/17) BUN: 693506 CCP: <0.04 HIV: not detected Procalcitonin: 0.180.30 (WNL) BNP: 4873 (04/26/17) Globulin: 4.4H Urine Pro/Cr: 0.8H Anti-P 3: <1.0 Anti-M: <1.0 ANCA: Negative Cardiac Echo LV: EF= 25-30%, global hypokinesis RV: mild dilation, mildly reduced function, RSVP= 30-40mmHg LA: moderately dilated RA: moderately dilated MV: moderate to severe regurgitation TV: moderate to severe regurgitation Radiology: CXR (05/05/17) mildly elevated (rt) alicia-diaphragm , dramatic improvement in RUL opacification and R>L cost-phrenic blunting Assessment & Plan 77-year-old female admitted with progressive shortness of breath/hypoxia and right upper lobe nodule: #1 Hypoxia: Patient is notably much improved and will be discharged later today. At this time the etiology of the hypoxia is most likely cardiac but possible inflammatory/vasculitic component may be present as the patient does have a mildly elevated urine protein to creatinine ratio. I do suggest this is worked up as an outpatient. Also the patient does have signs of pulmonary hypertension but this is secondary to group 2 not group 1 pulmonary hypertension so initiation of treatment for pulmonary arterial hypertension is not warranted. This is shown via right heart catheterization performed 2016. The proper treatment is aggressive control of her heart failure as well as fluid balance. #2 Inflammation: I do agree with continuing prednisone over a slow taper at this time. The budesonide should be discontinued if she has no history of obstructive ventilatory disease. #3 Elevated SED rate: Exact etiology of the patient's hypoxemia is not completely known and the elevated protein to creatinine ratio may suggest some vasculitic component. This can be worked up as an outpatient. Patient also has a notable elevation in her SED which is also noted to be seen with congestive heart failure. Please refer to the reference below: N Engl J Med 1991; 324:[id number] 1990DOI: [id number] #4 Follow-Up: This patient should follow-up with Dr. Dylan ashby within the next 2-3 weeks after discharge. Data Vital Signs: Date Time Temp Pulse Resp B/P (MAP) Pulse Ox O2 Delivery O2 Flow Rate FiO2 05/06/17 13:19 36.6 72 18 96 Room Air 05/06/17 11:57 36.6 72 18 140/69 (92) 96 05/06/17 08:00 Room Air 05/06/17 07:32 76 18 95 Room Air 05/06/17 07:24 36.7 75 18 142/77 (98) 94 05/06/17 04:00 Room Air 05/06/17 03:36 36.9 73 18 147/84 (105) 96 Room Air 05/06/17 00:00 36.8 82 18 148/74 (98) 92 Room Air 05/05/17 23:59 Room Air 05/05/17 20:09 36.5 77 16 124/68 (86) 100 Room Air 05/05/17 20:00 Room Air 05/05/17 19:20 80 18 93 Room Air 05/05/17 16:38 67 05/05/17 16:00 Room Air 05/05/17 16:00 36.6 67 18 137/64 (88) 92 05/05/17 15:18 74 16 93 Room Air Laboratory Results: Last 24 Hours Test 05/05/17 16:05 05/05/17 16:09 05/05/17 20:01 05/06/17 05:35 Sodium Level 137 mmol/L 139 mmol/L Potassium Level 4.6 mmol/L 3.9 mmol/L Chloride Level 101 mmol/L 102 mmol/L Carbon Dioxide Level 30 mmol/L 30 mmol/L Anion Gap 6.0 mmol/L 7.0 mmol/L Blood Urea Nitrogen 24 mg/dl 23 mg/dl Creatinine 0.96 mg/dl 0.85 mg/dl Est Creatinine Clear Calc Drug Dose 50.2 ml/min 55.9 ml/min Estimated GFR () 65.7 76.1 Estimated GFR (Non- 56.6 65.6 BUN/Creatinine Ratio 25.4 27.3 Random Glucose 212 mg/dl 124 mg/dl Calcium Level 10.0 mg/dl 9.5 mg/dl Bedside Glucose 246 mg/dl 237 mg/dl White Blood Count 14.49 K/uL Red Blood Count 4.21 M/uL Hemoglobin 12.3 g/dL Hematocrit 37.0 % Mean Corpuscular Volume 87.9 fL Mean Corpuscular Hemoglobin 29.2 pg Mean Corpuscular Hemoglobin Concent 33.2 g/dl RDW Standard Deviation 46.6 fL RDW Coefficient of Variation 14.5 % Platelet Count 460 K/uL Mean Platelet Volume 9.6 fL Test 05/06/17 06:51 05/06/17 11:23 Bedside Glucose 115 mg/dl 136 mg/dl
--- NOTE | 2017-05-17 12:10 | Discharge Summary ---
Discharge Summary Date of Service May 17, 2017. Discharge Summary Admission Date: Apr 26, 2017 at 22:38 Discharge Date: May 06, 2017 Discharge Disposition: Home with services Principal Diagnosis: acute hypoxic respiratory failure - multifactorial Problems/Secondary Diagnoses: 1. atrial fibrillation 2. mild pulmonary HTN 3. acute/chronic systolic CHF / biventricular heart failure 4. moderate-severe MR and TR 5. T2DM 6. HTN 7. Hypothyroidism 8. CKD stage 2 9. hyperlipidemia 10. suspected pneumonia 11. RUL lung mass vs infiltrate - follow-up needed 12. question of inflammatory lung disease - to be determined 13. nonobstructive CAD as seen on heart cath February 2015 Immunizations: Have You Had Influenza Vaccine: Yes History of Tetanus Vaccine?: No History of Pneumococcal: No History of Hepatitis B Vaccine: No Procedures: 1. CTA chest - IMPRESSION: 1. No pulmonary emboli identified although segmental and subsegmental pulmonary arteries are suboptimally assessed due to respiratory motion. 2. Diffuse interlobular septal thickening consistent with interstitial pulmonary edema. Multifocal bilateral airspace opacities, including a 4.9 cm focus of right upper lobe consolidation which could reflect superimposed pneumonia or alveolar edema. A chest CT in one month to ensure resolution is recommended. 3. Mild to moderate mediastinal and hilar lymphadenopathy which is nonspecific although may be reactive. This can be assessed on follow-up chest CT. 4. Trace bilateral pleural effusions. 5. Moderate cardiomegaly with reflux of contrast into the IVC and hepatic veins which could indicate right heart dysfunction. 2. echocardiogram: * Moderate to severe left ventricular systolic dysfunction with EF 25-30%. * Mild concentric left ventricular ectopy. * Mild right ventricular dilatation. Mild right ventricular systolic dysfunction. * Moderate biatrial dilatation. * Moderate to severe mitral and tricuspid regurgitation. * Trace pulmonic regurgitation. * Mild pulmonary hypertension. * Elevated central venous pressure. * Small pericardial effusion. No evidence of cardiac tamponade. Consultations: 1. pulmonary - Kamran Pham MD 2. cardiology - Elgin Shrestha MD 3. PT, OT Medication Reconciliation New Medications: Digoxin (Digoxin) 0.125 Mg Tab 0.125 MG PO DAILY@16 for 30 Days, #30 TAB Magnesium Oxide (Magnesium-Oxide) 400 Mg Tab 400 MG PO DAILY for 30 Days, #30 TAB Potassium Chloride (Klor-Con M20) 20 Meq Tabcr 20 MEQ PO BIDM for 30 Days, #60 Prednisone (Prednisone) 10 Mg Tab 30 MG PO DAILY for 6 Days, #12 TAB Take 3 tablets day 1/2 Take 2 tablets day 3/4 Take 1 tablet day 5/6 Changed Medications: Furosemide (Lasix) 40 Mg Tab 40 MG PO BID for 30 Days, #60 TAB (Changed from: DAILY) Continued Medications: Dabigatran Etexilate Mesylate (Pradaxa) 150 Mg Cap 150 MG PO BID, CAP Diltiazem Hcl Ext Rel (Tiazac) 180 Mg Capcr 180 MG PO BID, CAP Insulin Glargine (Toujeo Solostar) 300 Unit/Ml Inj 32 UNITS SC BID Levothyroxine Sodium (Levothyroxine Sodium) 50 Mcg Tab 50 MCG PO DAILYBB, #90 Losartan Potassium (Losartan Potassium) 50 Mg Tab 50 MG PO BID, #180 Metformin Hcl (Glucophage) 1,000 Mg Tab 1000 MG PO BID, TAB Metoprolol Succ (Toprol Xl) (Toprol-Xl ) 100 Mg Tabcr 100 MG PO BID, TAB Pravastatin Sodium (Pravastatin Sodium) 80 Mg Tab 80 MG PO HS, #90 Discontinued Medications: Nitrofurantoin Macrocrystal (Nitrofurantoin) 100 Mg Cap 1 TAB PO BID Discharge Exam Physical Exam: General Appearance: no apparent distress ENT: pharynx normal Neck: no JVD Respiratory/Chest: no respiratory distress, no accessory muscle use, + rales (minimal, bases, especially on right) Cardiovascular: no gallop, normal peripheral pulses, + systolic murmur (2/6 LLSB), + irregularly irregular Abdomen / GI: normal bowel sounds, non tender, soft, no organomegaly Extremities: no pedal edema Neurologic/Psychiatric: alert, oriented x 3 Skin: no rash Hospital Course HISTORY OF PRESENT ILLNESS: The patient is a 76-year-old female with several months of dyspnea and who underwent left and right heart catheterization in February 2017 showing nonobstructive CAD with mild pulmonary HTN. The heart catheterization was performed due to her ongoing pulmonary symptoms & dyspnea. The patient reported that her shortness of breath had been worsening prior to admission. It was associated with cough and wheezing as well along with low-grade fever. She denied any recent travel or sick exposures. In the ER at time of admission she underwent CTA chest that did not show PE but demonstrated either CHF and/or pneumonia. She was quickly placed on BIPAP in the ER due to her significant hypoxia and respiratory distress. HOSPITAL COURSE: 1. acute hypoxic respiratory failure - this was likely multifactorial in origin but the main culprit was felt to be acute/chronic systolic CHF. There was likely some element of community-acquired pneumonia. There was also some concern that she could have inflammatory lung disease due to high inflammatory markers but this was uncertain. She had a profound O2-requirement for the first half of her stay. She was initially treated with BIPAP and then was transitioned to High-Flow Nasal Cannula. As she made progress her O2 was weaned off At time of discharge her O2 sats in room air at rest and with activity were normal. 2. acute/chronic systolic CHF / biventricular heart failure - the patient's ejection fracture was markedly reduced relative to her ejection fraction seen on cardiac catheterization in February 2015. The exact cause of the reduced ejection fraction was unknown but possibly due to chronically uncontrolled a. fib. EF was 25-30% on echo this admission. She was seen in consult by cardiology throughout her stay. She received aggressive IV diuresis with improvement in weight and all pulmonary symptoms. Her a. fib rates improved with addition of digoxin. At discharge she will increase her lasix to 40mg twice daily and take potassium/ magnesium supplementation. She was counseled on fluid & salt restriction, checking daily weights, and medication compliance. Follow-up with her primary ticket manager, Dr. Fernando Turner, within 1 week was recommended. She remains on beta mauricio and ARB. 3. concern of community-acquired pneumonia - she had a fairly large RUL mass vs infiltrate on imaging. She received a full, 10-day course of IV/PO antibiotics while hospitalized. Fevers resolved and her CRP - initially quite high - improved considerably. She will need a repeat chest CT within 4-6 weeks as an outpatient to re- evaluate the RUL infiltrate. Dr. Dylan Cook from pulmonary plans to follow her closely after discharge. 4. question of inflammatory lung disease - the patient's sed rate and CRP were markedly elevated during her stay. She did received IV/PO steroids in the event there was an element of inflammatory lung disease present. Whether her CRP improved because of steroid use or antibiotics is unknown. She will follow- up with Dr. Dylan Cook in the pulmonary clinic for ongoing testing and likely repeat chest CT. A short prednisone taper will be completed after discharge. 5. RUL mass vs infiltrate - see discussion above. Will need repeat CT chest as outpatient. 6. compensated hypothyroidism - TSH was normal in 03/2017. She will remain on her normal dose of synthroid. 7. a. fib - at presentation her rates were very high despite calcium channel mauricio and beta mauricio. Her rates improved with addition of digoxin. She will continue on systemic anticoagulation for stroke risk reduction as well as the digoxin. All other medical problems remained stable while hospitalized. PT/OT both cleared the patient for home. Home health will be set up for her after discharge. Total Time Spent: Greater than 30 minutes This includes examination of the patient, discharge planning, medication reconciliation, and communication with other providers. Discharge Instructions Please refer to the electronic Patient Visit Report (Discharge Instructions) for additional information. Follow-Up 1. see Barbara MCDANIELS within [address] Fernando Turner within [address] Dylan Cook within 2-3 weeks; will likely need repeat CT scan of the chest at that time Additional Copies To Dylan Cook DO; Barbara Guerrero ,C.R.N.P.; Fernando Turner MD
== END 2017-05-06 13:55 | disposition home health service (06) | DRG 291 ==
LOC: C.EDB 19:32 → C.2T 22:38 → ENRESERV 22:58 → C.2E 04-27 11:57
PROVIDERS: ADMIT Hospitalist; ATTEND Internal Medicine
DX: I11.0 Hypertensive heart disease with heart failure (principal); J18.9 Pneumonia, unspecified organism; J96.21 Acute and chronic respiratory failure with hypoxia; I50.43 Acute on chronic combined systolic (congestive) and diastolic (congestive) heart failure; I44.7 Left bundle-branch block, unspecified; E11.9 Type 2 diabetes mellitus without complications; E03.9 Hypothyroidism, unspecified; I48.2 Chronic atrial fibrillation; E78.5 Hyperlipidemia, unspecified; E83.52 Hypercalcemia; D64.9 Anemia, unspecified; E87.6 Hypokalemia; R91.1 Solitary pulmonary nodule; R19.7 Diarrhea, unspecified; Z79.01 Long term (current) use of anticoagulants; Z79.4 Long term (current) use of insulin; Z79.84 Long term (current) use of oral hypoglycemic drugs; Z79.899 Other long term (current) drug therapy

== ENCOUNTER → 2017-05-22 | Outpatient (CLI) | payer OTHER ==
[~2017-05-22] MED LIST changes: +CZR50 PO; +LEVO50TA6 PO; -LEVO50TA60 PO; +LNX125 PO; -LPT40 PO; +MCRK20 PO; +MGNO400 PO; -NITR100C41 PO; +PRAV80TA2 PO; +PRD10 PO
[2017-05-22 16:21] LABS: BLOOD UREA NITROGEN 26 mg/dl (7-18); BUN/CREATININE RATIO 16.4 (10-20); CALCIUM 9.6 mg/dl (8.5-10.1); CARBON DIOXIDE 29 mmol/L (21-32); CHLORIDE 99 mmol/L (98-107); GLUCOSE 430 mg/dl (70-99); POTASSIUM 4.5 mmol/L (3.5-5.1); SODIUM 134 mmol/L (136-145)
[2017-05-22 16:32] LABS: BETA-HYDROXYBUTYRATE 1.47 mg/dL (0.2-2.81)
== END | disposition home or self-care (01) ==
LOC: C.LAB1850 14:32
PROVIDERS: ATTEND Physician Assistant
DX: I42.9 Cardiomyopathy, unspecified (principal); I48.91 Unspecified atrial fibrillation

== ENCOUNTER → 2017-05-24 | Outpatient (CLI) | payer OTHER ==
[2017-05-24 14:16] LABS: BLOOD UREA NITROGEN 32 mg/dl (7-18); BUN/CREATININE RATIO 21.2 (10-20); CALCIUM 9.7 mg/dl (8.5-10.1); CARBON DIOXIDE 29 mmol/L (21-32); CHLORIDE 99 mmol/L (98-107); GLUCOSE 186 mg/dl (70-99); POTASSIUM 4.4 mmol/L (3.5-5.1); SODIUM 137 mmol/L (136-145)
== END | disposition home or self-care (01) ==
LOC: C.LAB1850 10:21
PROVIDERS: ATTEND Physician Assistant
DX: I42.9 Cardiomyopathy, unspecified (principal)

== ENCOUNTER → 2017-05-29 | Outpatient (CLI) | payer OTHER ==
[2017-05-29 12:32] LABS: ESTIMATED AVERAGE GLUCOSE 200 mg/dl; HA1C FLAG Normal (Normal)
== END | disposition home or self-care (01) ==
LOC: C.LAB1850 10:37
PROVIDERS: ATTEND Nurse Practitioner Adult Health
DX: E11.8 Type 2 diabetes mellitus with unspecified complications (principal)

== ENCOUNTER → 2017-07-30 | Outpatient (CLI) | payer OTHER ==
[2017-07-30 13:04] LABS: HEMATOCRIT 36.9 % (37-47); MEAN CELL VOLUME 90.4 fL (80-100); MEAN CORPUSCULAR HEMOGLOBIN 30.1 pg (25-34); MEAN CORPUSCULAR HGB CONC 33.3 g/dl (32-36); MEAN PLATELET VOLUME 11.4 fL (7.4-10.4); PLATELET COUNT 264 K/uL (130-400); RED BLOOD COUNT 4.08 M/uL (4.2-5.4); WHITE BLOOD COUNT 10.06 K/uL (4.8-10.8)
[2017-07-30 13:17] LABS: URINE APPEARANCE CLEAR (CLEAR); URINE BILIRUBIN NEG (NEG); URINE COLOR YELLOW; URINE EPITHELIAL CELL AUTO >30 /lpf (0-5); URINE NITRITE NEG (NEG); URINE PH 7.5 (4.5-7.5); URINE SPECIFIC GRAVITY 1.015 (1.000-1.030); UROBILINOGEN NEG (NEG); ZZUR CULT IF INDIC CLEAN CATCH YES
[2017-07-30 13:18] LABS: MANUAL MICROSCOPIC REQUIRED? NO; REVIEW REQ? NO
[2017-07-30 13:31] LABS: ALT/SGPT 25 U/L (12-78); BLOOD UREA NITROGEN 15 mg/dl (7-18); BUN/CREATININE RATIO 19.7 (10-20); CALCIUM 10.1 mg/dl (8.5-10.1); CARBON DIOXIDE 25 mmol/L (21-32); CHLORIDE 107 mmol/L (98-107); CHOLESTEROL 140 mg/dl (0-200); CREATININE 0.74 mg/dl (0.60-1.20); GLUCOSE 76 mg/dl (70-99); POTASSIUM 3.6 mmol/L (3.5-5.1); SODIUM 140 mmol/L (136-145); TRIGLYCERIDES 129 mg/dl (0-150); VERY LOW DENSITY LIPOPROT CALC 26 mg/dl
[2017-07-30 13:40] LABS: ALB/GLOB RATIO 1.1 (0.9-2); ALKALINE PHOSPHATASE 96 U/L (45-117); AST/SGOT 14 U/L (15-37); CHOLESTEROL/HDL RATIO 2.4; HDL CHOLESTEROL 59 mg/dl; LDL CHOLESTEROL CALCULATED 55 mg/dl; THYROID STIMULATING HORMONE 0.969 uIu/ml (0.300-4.500)
[2017-07-30 13:44] LABS: URINE PROTIEN/CREAT RATIO 0.3 (0-0.2); URINE TOTAL PROTEIN 17.1 mg/dl (0-11.9)
[2017-07-30 13:55] LABS: RATIO 54.6 mcg/mg (0-30.0)
== END | disposition home or self-care (01) ==
LOC: C.LAB1850 10:45
PROVIDERS: ATTEND Internal Medicine Nephrology
DX: I13.0 Hypertensive heart and chronic kidney disease with heart failure and stage 1 through stage 4 chronic kidney disease, or unspecified chronic kidney disease (principal); E11.22 Type 2 diabetes mellitus with diabetic chronic kidney disease; N18.3 Chronic kidney disease, stage 3 (moderate); I50.32 Chronic diastolic (congestive) heart failure; E78.00 Pure hypercholesterolemia, unspecified; I48.91 Unspecified atrial fibrillation; E03.9 Hypothyroidism, unspecified

== ENCOUNTER → 2017-07-30 | Outpatient (CLI) | payer OTHER ==
--- NOTE | 2017-07-30 13:11 | DIAGNOSTIC IMAGING REPORT ---
(CHEST) THORAX WITHOUT CLINICAL HISTORY: 77 years-old Female presenting with history of pneumonia, follow-up. TECHNIQUE: Multidetector CT imaging of the chest was performed without the use of intravenous contrast. IV contrast: None. A dose lowering technique was used consistent with the principles of ALARA (as low as reasonably achievable). COMPARISON: 04/26/2017. CT DOSE (mGy.cm): The estimated cumulative dose is 340.25 mGy.cm. FINDINGS: Generation Technologist topogram: Unremarkable. On soft tissue windows, normal thyroid and thoracic inlet. Prominent mediastinal lymph nodes have decreased in size from prior, likely reactive. Evaluation of the juancarlos is limited without intravenous contrast. Atherosclerosis of the aorta. Multichamber enlargement of the heart. Mitral annular, aortic valve, and coronary artery calcification. No pericardial or pleural effusion. Cholecystectomy clips. Biliary ductal prominence likely a reservoir effect in the post cholecystectomy state. Small hiatal hernia. On lung windows, evaluation of the lungs is degraded by extensive respiratory motion at the lung bases. Allowing for this, interval resolution of right upper lobe consolidation. Mosaic attenuation at the lung bases with patchy groundglass and mild smooth interlobular septal thickening. Airways patent. On bone windows, degenerative changes of the spine. Degenerative changes of the bilateral glenohumeral joints. IMPRESSION: 1. Interval resolution of right upper lobe consolidation. 2. Lower lobe mosaic attenuation could suggest small airways disease. 3. Superimposed patchy groundglass opacities in the lower lobes with interlobular septal thickening could suggest a component of edema. 4. Cardiomegaly. Electronically signed by: Edd Bhatt M.D. 07/30/2017 1:10 PM Dictated Date/Time: 07/30/2017 1:04 PM
== END | disposition home or self-care (01) ==
LOC: C.CTS 12:49
PROVIDERS: ATTEND Internal Medicine Pulmonary Disease
DX: R91.8 Other nonspecific abnormal finding of lung field (principal); I51.7 Cardiomegaly

== ENCOUNTER → 2017-09-28 | Outpatient (CLI) | payer OTHER ==
[~2017-09-28] MED LIST changes: +METO100T44 PO; -METO1TAB69 PO
[2017-09-28 15:57] LABS: BLOOD UREA NITROGEN 22 mg/dl (7-18); BUN/CREATININE RATIO 18.4 (10-20); CALCIUM 9.2 mg/dl (8.5-10.1); CARBON DIOXIDE 28 mmol/L (21-32); CHLORIDE 98 mmol/L (98-107); CREATININE 1.19 mg/dl (0.60-1.20); GLUCOSE 454 mg/dl (70-99); MAGNESIUM 2.2 mg/dl (1.8-2.4); PHOSPHORUS 3.2 mg/dl (2.5-4.9); POTASSIUM 4.6 mmol/L (3.5-5.1); SODIUM 132 mmol/L (136-145)
[2017-09-28 16:27] LABS: LYME DISEASE AB IGM NEG (NEG)
[2017-09-28 16:28] LABS: LYME DISEASE AB IGG POS (NEG)
[2017-09-28 16:32] LABS: BETA-HYDROXYBUTYRATE 1.26 mg/dL (0.2-2.81)
== END | disposition home or self-care (01) ==
LOC: C.LAB1850 14:12
PROVIDERS: ATTEND Nurse Practitioner Adult Health
DX: N18.3 Chronic kidney disease, stage 3 (moderate) (principal); R53.83 Other fatigue; W57.XXXA Bitten or stung by nonvenomous insect and other nonvenomous arthropods, initial encounter

== ENCOUNTER → 2017-12-07 | Outpatient (CLI) | payer OTHER | END | disposition home or self-care (01) | LOC: C.LAB1850 15:44 | PROVIDERS: ATTEND Internal Medicine Cardiovascular Disease | DX: I48.91 Unspecified atrial fibrillation (principal) ==

== ENCOUNTER → 2017-12-27 | Outpatient (CLI) | payer OTHER ==
--- NOTE | 2017-12-28 13:35 | MAMMOGRAPHY REPORT ---
BILATERAL DIGITAL SCREENING MAMMOGRAM TOMOSYNTHESIS WITH CAD: 12/27/2017 CLINICAL HISTORY: Routine screening. TECHNIQUE: Breast tomosynthesis in addition to standard 2D mammography was performed. Current study was also evaluated with a Computer Aided Detection (CAD) system. COMPARISON: Comparison is made to exams dated: 12/25/2016 mammogram, 12/22/2015 mammogram, 12/21/2014 m ammogram, 12/18/2013 mammogram, 11/13/2012 mammogram, and 11/10/2011 mammogram - [facility] enter. BREAST COMPOSITION: There are scattered areas of fibroglandular density in both breasts. FINDINGS: No suspicious masses, calcifications, or areas of architectural distortion are noted in ei ther breast. There has been no significant interval change compared to prior exams. IMPRESSION: ACR BI-RADS CATEGORY 1: NEGATIVE There is no mammographic evidence of malignancy. A 1 year screening mammogram is recommended. The pa tient will receive written notification of the results. Approximately 10% of breast cancers are not detected with mammography. A negative mammographic report should not delay biopsy if a clinically suggestive mass is present. Jacy Goldman M.D. ah/:12/27/2017 16:12:38 Clean Out Driller Helper: Feroz MCLEAN(Yovani)(M), [facility] letter sent: Normal 1/2 BI-RADS Code: ACR BI-RADS Category 1: Negative
== END | disposition home or self-care (01) ==
LOC: C.MAMM 15:33
PROVIDERS: ATTEND Nurse Practitioner Adult Health
DX: Z12.31 Encounter for screening mammogram for malignant neoplasm of breast (principal)

== ENCOUNTER → 2018-01-17 | Outpatient (CLI) | payer OTHER ==
[2018-01-17 17:21] LABS: BASO % 0.2 %; BASO ABS # 0.02 K/uL (0-0.2); EOS % 1.5 %; EOS ABS # 0.16 K/uL (0-0.5); HEMATOCRIT 39.6 % (37-47); HEMOGLOBIN 13.2 g/dL (12.0-16.0); IG# 0.04 K/uL (0.00-0.02); LYMPH % 19.2 %; LYMPH ABS # 2.07 K/uL (1.2-3.4); MEAN CELL VOLUME 88.4 fL (80-100); MEAN CORPUSCULAR HEMOGLOBIN 29.5 pg (25-34); MEAN CORPUSCULAR HGB CONC 33.3 g/dl (32-36); MEAN PLATELET VOLUME 10.7 fL (7.4-10.4); MONO % 4.9 %; MONO ABS # 0.53 K/uL (0.11-0.59); NEUT % 73.8 %; NEUT ABS # 7.97 K/uL (1.4-6.5); PLATELET COUNT 262 K/uL (130-400); RED CELL DISTRIBUTION WIDTH CV 14.5 % (11.5-14.5); WHITE BLOOD COUNT 10.79 K/uL (4.8-10.8)
[2018-01-17 18:01] LABS: ALBUMIN 3.9 gm/dl (3.4-5.0); BLOOD UREA NITROGEN 23 mg/dl (7-18); CALCIUM 9.6 mg/dl (8.5-10.1); CARBON DIOXIDE 28 mmol/L (21-32); CREATININE 1.29 mg/dl (0.60-1.20); GLUCOSE 385 mg/dl (70-99); PHOSPHORUS 3.8 mg/dl (2.5-4.9); POTASSIUM 4.9 mmol/L (3.5-5.1); SODIUM 132 mmol/L (136-145)
== END | disposition home or self-care (01) ==
LOC: C.LAB1850 16:10
PROVIDERS: ATTEND Internal Medicine Nephrology
DX: E55.9 Vitamin D deficiency, unspecified (principal); N18.3 Chronic kidney disease, stage 3 (moderate)

== ENCOUNTER → 2018-01-31 | Outpatient (CLI) | payer OTHER ==
--- NOTE | 2018-01-31 17:39 | DIAGNOSTIC IMAGING REPORT ---
LUMBAR SPINE 5 VIEWS CLINICAL HISTORY: Chronic low back pain. FINDINGS: Five views of the lumbar spine are correlated with abdominal CT dated 09/14/2014. The skeletal structures are osteopenic. There is no radiographic evidence of acute fracture or malalignment. Vertebral body height is maintained throughout the lumbar spine. There is 1.4 cm of anterolisthesis at L4-L5. Alignment is otherwise preserved. The transverse and spinous processes appear intact. There is no evidence of spondylolysis. Advanced facet arthropathy is seen in the lower lumbar region. Anterior osteophytes are noted throughout. There is mild lumbar levocurvature centered at L3. There is advanced disc space narrowing at L5-S1 with associated endplate sclerosis. Moderate disc space narrowing and endplate sclerosis is seen at L1-L2. Mild disc space narrowing is seen at the remaining lumbar levels. The bony pelvis is intact as imaged. Mild sclerotic change is noted in the sacroiliac joints. Cholecystectomy clips are observed. There is advanced atherosclerotic calcification of the abdominal aorta. No bowel obstruction is identified. Small metallic foreign bodies project over the sacrum. IMPRESSION: 1. No acute bony abnormality is identified involving the lumbar spine. 2. Osteopenia with lumbosacral spondylosis and scoliosis as above. Dictated: 01/31/2018 5:16 PM Transcribed: 01/31/2018 5:38 PM ANNELIESE_Kamran Electronically signed by: Kenan Oleary M.D. 01/31/2018 6:01 PM Dictated Date/Time: 01/31/2018 5:16 PM
== END | disposition home or self-care (01) ==
LOC: C.RAD1850 16:23
PROVIDERS: ATTEND Nurse Practitioner Family
DX: M47.27 Other spondylosis with radiculopathy, lumbosacral region (principal)

== ENCOUNTER → 2018-01-31 | Outpatient (CLI) | payer OTHER | END | disposition home or self-care (01) | LOC: C.LABSPEC 11:50 | PROVIDERS: ATTEND Nurse Practitioner Family | DX: M54.5 Low back pain (principal) ==

== ENCOUNTER → 2018-02-07 | Outpatient (CLI) | payer OTHER ==
[2018-02-08 06:06] LABS: HEMOGLOBIN A1C 8.8 % (4.5-5.6)
== END | disposition home or self-care (01) ==
LOC: C.LAB1850 16:13
PROVIDERS: ATTEND Nurse Practitioner Family
DX: E11.8 Type 2 diabetes mellitus with unspecified complications (principal)

== ENCOUNTER → 2018-03-04 | Outpatient (CLI) | payer OTHER | END | disposition home or self-care (01) | LOC: C.MAMM 15:04 | PROVIDERS: ATTEND Nurse Practitioner Family | DX: Z00.00 Encounter for general adult medical examination without abnormal findings (principal); M85.89 Other specified disorders of bone density and structure, multiple sites ==

== ENCOUNTER → 2018-03-20 | Outpatient (CLI) | payer OTHER | END | disposition home or self-care (01) | LOC: C.LAB1850 12:04 | PROVIDERS: ATTEND Internal Medicine Cardiovascular Disease | DX: E55.9 Vitamin D deficiency, unspecified (principal); T14.8XXA Other injury of unspecified body region, initial encounter; W57.XXXA Bitten or stung by nonvenomous insect and other nonvenomous arthropods, initial encounter ==

== ENCOUNTER → 2018-06-10 | Outpatient (CLI) | payer OTHER ==
[2018-06-10 13:49] LABS: HEMOGLOBIN A1C 8.5 % (4.5-5.6)
== END | disposition home or self-care (01) ==
LOC: C.LAB1850 11:34
PROVIDERS: ATTEND Family Medicine
DX: E11.8 Type 2 diabetes mellitus with unspecified complications (principal); I25.10 Atherosclerotic heart disease of native coronary artery without angina pectoris

== ENCOUNTER 2020-09-14 12:38 | Observation (INO) ==
--- NOTE | 2020-09-14 13:36 | History & Physical Bridge Note ---
Date of Service September 14, 2020 History & Physical Bridge Note I have examined the patient, reviewed the History & Physical and in the interval since the performance of the History & Physical I have noted the following changes of clinical significance: no changes noted. I reviewed the indications, procedure, risks and alternatives with the patient, answered all questions. Consent obtained. Patient understands and agrees to the procedure. I also reviewed the risks and use of sedation, patient understands and consent obtained.
--- NOTE | 2020-09-14 13:37 | Pre Anesthesia Assessment ---
Date of Service September 14, 2020 Pre Sedation Assessment Vital Signs Temp Pulse Resp BP Pulse Ox 09/14/20 13:12 37.1 C 109 H 16 143/101 H 97 Cardiovascular + irregularly irregular Respiratory normal respiratory effort, lungs clear to auscultation Pre-Sedation Airway Assessment Smoking Status: Never smoker Hx Sleep Apnea: No Hx Difficult Intubation: No Short, Thick Neck: No Thyromental Distance: > or= 3.5 Finger Breadths Oral Cavity: + Dentures Mallampati Class: III ASA: ASA3 NPO Status Date of Last Intake of Fluids: 09/13/20 Time of Last Intake of Fluids: 18:30 Date of Last Intake of Solid Food: 09/14/20 Time of Last Intake of Solid Foods: 18:30 Procedure Planning Contraindications for Sedation: none Current Medications Reviewed: Yes Notes The planned sedation has been discussed with the patient. Informed Consent was obtained. I have identified the patient, determined the appropriateness of sedation and have assessed the patient immediately prior to the procedure. All medicine(s) and interventions are by my order.
[2020-09-14] MEDS ORDERED: BACITRACIN INJ 50,000 UNIT VIAL ONE (14:06)
[2020-09-14] MEDS ORDERED: LIDOCAINE HCL 1% 20 ML VIAL ONE (14:06)
[2020-09-14] MEDS ORDERED: BACITRACIN OINT 0.9 GM PKT ONE (14:06)
[2020-09-14] MEDS ORDERED: fentaNYL citrate 100 MCG/2 ML VIAL ONE (14:06)
[2020-09-14] MEDS ORDERED: MIDAZOLAM HCL 5 MG/ML 1 ML VIAL ONE (14:06)
[2020-09-14] MEDS ORDERED: CLINDAMYCIN PHOS 300 MG/2 ML VIAL ONE (14:15)
[2020-09-14] MEDS ORDERED: ACETAMINOPHEN 325 MG TAB PO PRN (14:17)
--- NOTE | 2020-09-14 14:17 | Electrophysiology Report ---
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 After identification in the laboratory the patient was prepped and draped in the standard sterile manner for a left-sided device replacement. The left prepectoral region was anesthetized with 1% lidocaine local anesthetic and once adequate anesthesia was obtained a 6 cm incision was made through the old implant scar and carried down to the ICD generator. The generator was dissected free of tissue and explanted. A bacitracin-soaked sponge (50,000 units in 50 cc normal saline solution) was placed in the pocket. The ICD was removed from the leads and connected to an external pacing system. Pacing and sensing characteristics were evaluated in the ventricular lead as noted on the implant data sheet. A new ICD was attached to the lead and found to be functioning normally. The bacitracin-soaked sponge was removed from the pocket, the ICD was placed in the pocket with the lead coiled beneath it. The incision was closed with a running double subcutaneous closure of 3-0 Vicryl absorbable suture followed by a running subcuticular skin closure of 4-0 Vicryl absorbable suture. MNP Electrophysiology codes Indication for Procedure (1) Implantable cardioverter-defibrillator (ICD) at end of battery life: ICD Procedure 1: ICD: 90245 Single ICD replacement PG Moderate Sedation Codes Moderate Sedation Codes Procedure 1: Sedation/Anesthesia: 78614 Mod Sedation by the same physician;Init15 Min Child Age 5 & Up Procedure 2: Sedation/Anesthesia: 48707 Mod Sedation by the same physician; Ea [id number] Minutes
[2020-09-14] MEDS ORDERED: METOPROLOL TARTRATE 1 MG/ML VIAL IV ONE (15:39)
--- NOTE | 2020-09-14 16:00 | Electrophysiology Report ---
Date of Service September 14, 2020 Electrophysiology Procedure Electrophysiology Procedure Report Preoperative diagnosis: Left bundle branch block, cardiomyopathy, congestive heart failure, permanent atrial fibrillation Postoperative diagnosis: Same Procedure: Ventricular defibrillator lead implantation Coronary sinus angiography Left ventricular lead implantation Biventricular ICD implantation Surgeon: Ivan Humphreys MD Estimated blood loss: 50 cc Complications: None Disposition: Cardiology recovery Procedure details: After obtaining informed consent for the procedure, the patient was brought to the laboratory and prepped and draped in the standard sterile manner. The left prepectoral region was anesthetized with 1% lidocaine local anesthetic and left axillary venipuncture was performed by percutaneous t echnique and a guidewire placed through the left subclavian vein into the superior vena cava. The area was further infiltrated with 1% lidocaine local anesthetic and a 5 cm incision was made parallel to the left clavicle and 2 cm below it and carried down to the anterior pectoralis fascia. An ICD pocket was formed by blunt dissection anterior to the pectoralis fascia and a bacitracin- soaked sponge (50,000 units in 50 cc normal saline solution) was placed in the pocket. A 10.5 [place] [employer] lead introducer was placed over the guidewire into the left subclavian vein, the dilator and guidewire were removed and a bipolar active fixation steroid tipped ventricular ICD lead was advanced through the introducer into the superior vena cava. A guidewire was placed through the introducer and the introducer was stripped from the lead and guidewire. Using a curved stylette the ventricular lead was advanced through the right ventricular outflow tract into the pulmonary artery and then using a straight stylette was positioned in the right ventricular apex. The screw was extended fixing the lead in position. Pacing and sensing thresholds were evaluated in bipolar configuration and are recorded on the implant data sheet. Diaphragmatic pacing was evaluated at full bipolar output as indicated on the data sheet. Once the ventricular lead was in position it was attached to the anterior pect oralis fascia using 1 suture of 2-0 silk around the lead collar. The short guidewire was exchanged for a long guidewire and a [place] coronary sinus sheath was advanced to position in the right atrium. The curved obturator was placed through the sheath and using x-ray dye the os of the coronary sinus was identified. It could not easily be accessed directly therefore a right angle attain select guiding catheter was introduced through the Dee catheter, the os of the coronary sinus was identified with dye injection and a guidewire was placed through the introducer into the coronary sinus and the Dee sheath was advanced into the coronary sinus. Coronary sinus branches were identified and dye was injected in various projections to obtain a coronary sinus angiogram. A good vessel was identified and a quadripolar coronary sinus catheter was advanced into good distal position. The left ventricular pacing threshold was evaluated in various configurations, as recorded on the implant data sheet. Diaphragmatic pacing was evaluated at full output, as indicated on the data sheet. Once this lead was in position the introducer system was removed from the lead and the lead was attached to the anterior pectoral fascia using 2 sutures of 2-0 silk around the lead collar. An additional suture of 2-0 silk was placed around the ventricular lead collar as well. The bacitracin-soaked sponge was removed from the pocket, hemostasis was obtained which required the use of a pursestring suture of 3-0 Vicryl around the lead insertion site due to high venous pressures, the ICD was attached to the leads and placed in the pocket with the leads coiled beneath it. The incision was closed with a running double subcutaneous closure of 3-0 Vicryl absorbable suture, followed by running subcuticular skin closure of 4-0 Vicryl absorbable suture. Bacitracin ointment was placed on the incision and a pressure dressing applied. [facility] Electrophysiology codes Pacing Procedure 1: Pacin BiV electrode w/Pacer / ICD implant, add on code ICD Procedure 1: ICD: 18670 Insert single or dual ICD system Miscellaneous Procedures Procedure 1: EP Miscellaneous: 10402 Contrast injection for venography Procedure 2: EP Miscellaneous: 31545-62 Venography, CS supevsion/interp PG Moderate Sedation Codes Moderate Sedation Codes Procedure 1: Sedation/Anesthesia: 92028 Mod Sedation by the same physician;Init15 Min Child Age 5 & Up Procedure 2: Sedation/Anesthesia: 49331 Mod Sedation by the same physician; Ea [id number] Minutes
--- NOTE | 2020-09-14 16:39 | Post Anesthesia Assessment ---
Date of Service September 14, 2020 Post Sedation Assessment Vital Signs Temp Pulse Pulse Resp BP BP Pulse Ox 09/14/20 16:20 36.6 C 92 H 14 124/91 94 09/14/20 16:08 96 H 16 128/73 93 09/14/20 15:58 92 H 16 119/74 93 09/14/20 15:39 97 H 147/67 H 09/14/20 13:12 37.1 C 109 H 16 143/101 H 97 Recovery Score Activity: Moves 4 extremities Respiration: Deep Breath/Cough Circulation: +/-20% PreAnes Value Consciousness: Fully Awake Oxygen Saturation: > 92% On Room Air Post Anesthesia Score: 10 Discharge Sedation Level of Care: Fast Track Phase II Post Sedation Plan On clinical assessment, the patient appears to have tolerated the sedation without complications. Patient is recovering as anticipated. Patient will continue to be monitored by nursing and may be discharged when sedation discharge criteria are met per below protocol. Upon Completions of procedure up to 15 minutes continue every 5 minute vital signs and the P.A.R. score; then discharge to a Phase I or Fast Track to Phase II per the following guidelines: * Discharge Patient to appropriate Phase II area if PAR is 8 or greater or return to pre- procedure baseline. The post - procedure orders will be as directed. * If PAR score is less than 8 or not return to pre-procedure baseline then patient will follow Phase I monitoring till PAR is reached for Phase II. The Phase I may be done in procedure room or may call to secure a Phase I area. * If naloxone or flumazenil are used for reversal, hold in Phase I for continued monitoring from when last reversal dose was given for a minimum of 60 minutes or longer pending the nurse and/or physician discretion of patient condition before discharge to Phase II. Please call the Sedation Physician to re-evaluate and complete post-note for discharge to Phase II area. Do NOT discharge from procedure sedation or Phase 1 until post- sedation evaluation note is complete by procedure /sedation MD Sedation Discharge Instructions to be given to the patient at discharge to home.
[2020-09-14] MEDS ORDERED: DIGOXIN 0.125 MG TAB PO SCH ×2 (17:10→17:15)
[2020-09-14] MEDS: ACETAMINOPHEN W/CODEINE #3 1 TAB PO PRN (20:21)
[2020-09-14] MEDS: SACUBITRIL-VALSARTAN 24-26 MG TAB PO SCH (20:22)
[2020-09-14] MEDS: POTASSIUM CHLORIDE CRTAB 20 MEQ TABCR PO SCH (20:22)
[2020-09-14] MEDS: METOPROLOL SUCC 50MG EXT REL TAB PO SCH (20:22)
[2020-09-14] MEDS ORDERED: ATORVASTATIN 40 MG TAB PO SCH (21:00)
[2020-09-15] MEDS: ACETAMINOPHEN W/CODEINE #3 1 TAB PO PRN ×2 (03:28→09:05)
[2020-09-15] MEDS ORDERED: LEVOTHYROXINE SODIUM 50 MCG TABLET PO SCH (06:30)
[2020-09-15 07:22] LABS: BUN Creatinine Ratio 21.3 (10-20); Calcium 9.5 mg/dl (8.5-10.1); Creatinine Clr Calc Pharmacy 48.8 ml/min; Est GFR (African American) 71.4; Est GFR (Non-African American) 61.6; Potassium 4.7 mmol/L (3.5-5.1)
--- NOTE | 2020-09-15 08:50 | Cardiology Progress Note ---
Date of Service September 15, 2020 Assessment & Plan (1) Status post implantation of automatic cardioverter/defibrillator (AICD): She is doing well postop day #1, this site looks good, the device is working well (2) Permanent atrial fibrillation: She is in permanent atrial fibrillation, her heart rate is somewhat rapid which is limiting the effectiveness of biventricular pacing. I did increase her digoxin yesterday but her heart rate remains fast. I am going to try to increase her calcium-blockade, she is on high-dose metoprolol succinate already and although I do not like to increase calcium blockade I have already increased her digoxin and we do not have to worry about heart block since she has the pacemaker in place. (3) Anticoagulant long-term use: Her site looks good and we should be able to restart her anticoagulation today. (4) Cardiomyopathy: For cardiomyopathy I would like to try to optimize her medical therapy as well as continue with biventricular pacing, however we need to control the heart rate to allow appropriate biventricular pacing. That may require an AV bibi block procedure but I want to try medications first. I am going to increase her calcium blockade, however that may limit our ability to increase Entresto so we may want to perform AV bibi block but I will wait until our follow-up to make that determination. Admission and Anticipated Discharge Date Admission Date: September 14, 2020 Subjective She had a little bit of incisional discomfort last evening, this morning she feels well. No chest pain or shortness of breath. Physical Exam Physical Exam: The incision is clean and dry, no ecchymosis or drainage. Dressing changed. Cardiac rhythm is regular with no rub Lungs are clear Results & Data ([facility]) Vital Signs (Past 12 Hours) Vital Signs Temp Pulse Resp BP Pulse Ox 09/15/20 07:07 36.7 C 82 19 127/62 96 09/15/20 03:29 36.7 C 97 H 18 147/75 H 97 09/14/20 23:56 36.5 C 81 18 132/75 92 Laboratory Results Comprehensive Metabolic Panel 09/15/20 Range/Units 06:12 Sodium 139 (136-145) mmol/L Potassium 4.7 (3.5-5.1) mmol/L Chloride 108 H (98-107) mmol/L Carbon Dioxide 26 (21-32) mmol/L BUN 19 H (7-18) mg/dl Creatinine 0.88 (0.6-1.2) mg/dl Glucose 116 H (70-99) mg/dl Calcium 9.5 (8.5-10.1) mg/dl Intake and Output 09/14/20 09/15/20 09/15/20 22:59 06:59 14:59 Intake Total 320 / 320 250 / 250 Balance 320 / 320 250 / 250 Intake: Oral 320 / 320 250 / 250 Other: # Unmeasured Voids 2 Weight 73.936 kg 75.6 kg Weight Measurement [facility] Diagnostic Findings Postop ECG: Appropriate pacer function Telemetry: Atrial fibrillation, somewhat rapid heart rate with pacing although it is probably a ventricular sensed response not biventricular pacing. Chest x-ray: good lead position, no pneumothorax ICD evaluation: Excellent pacing and sensing PG Care Time/CCT Total # of Minutes Spent Total Time Spent with Patient: Total time spent is greater than 50% in coordination of care (as documented) at patient's floor/unit and/or counseling patient: Coding Level of Care Code 95936 Post Operative Follow-Up Diagnoses Status post implantation of automatic cardioverter/defibrillator (AICD) Z95.810 Permanent atrial fibrillation I48.21 Anticoagulant long-term use Z79.01 Cardiomyopathy I42.9 CPT Codes Implantable Defib Multi lead programming - 34633 ([id number])
[2020-09-15] MEDS ORDERED: UMECLIDINIUM/VILANTEROL 62.5/25MCG 7 PUFFS/INHALER INH SCH (09:00)
[2020-09-15] MEDS ORDERED: FUROSEMIDE 80 MG TAB PO SCH (09:00)
[2020-09-15] MEDS ORDERED: ISOSORBIDE MONO EXTENDED REL 30 MG TABCR PO SCH (09:00)
[2020-09-15] MEDS ORDERED: CHOLECALCIFEROL 1,000 UNITS 25 MCG TAB PO SCH (09:00)
[2020-09-15] MEDS ORDERED: SITagliptin PHOSPHATE 25 MG TAB PO SCH (09:00)
[2020-09-15] MEDS ORDERED: dilTIAZem HCL 180 MG CAPCR PO SCH (09:00)
[2020-09-15] MEDS ORDERED: dilTIAZem HCL 120 MG CAPCR PO ONE (09:00)
[2020-09-15] MEDS ORDERED: MAGNESIUM OXIDE 400 MG TAB PO SCH (09:00)
--- NOTE | 2020-09-15 09:31 | XRay Report ---
XR chest 2V PA/lateral HISTORY: Status post pacemaker. COMPARISON: Chest 09/22/2019. FINDINGS: There is left-sided dual-chamber pacemaker/defibrillator. The heart remains mildly enlarged . There is interstitial vascular thickening which has improved. This suggests mild pulmonary vascular congestion without overt edema. No new focal lung consolidations to suggest pneumonia. No pleural ef fusions. No pneumothorax. Prior cholecystectomy. IMPRESSION: 1. Status post left-sided pacemaker/defibrillator. No pneumothorax. 2. Mild cardiomegaly and pulmonary vascular congestion which has improved. ACT 112: Negative or not required by law. Electronically signed by: Kailash Ovalle M.D. 09/15/2020 9:30 AM
[2020-09-15] MEDS: SACUBITRIL-VALSARTAN 24-26 MG TAB PO SCH (09:56)
[2020-09-15] MEDS: METOPROLOL SUCC 50MG EXT REL TAB PO SCH (09:56)
[2020-09-15] MEDS: POTASSIUM CHLORIDE CRTAB 20 MEQ TABCR PO SCH (09:57)
--- NOTE | 2020-09-15 12:11 | Electrocardiogram Report ---
Test Reason : Blood Pressure : / mmHG Vent. Rate : 082 BPM Atrial Rate : 067 BPM P-R Int : 000 ms QRS Dur : 114 ms QT Int : 400 ms P-R-T Axes : 000 154 -09 degrees QTc Int : 467 ms Ventricular-paced rhythm Abnormal ECG When compared with ECG of 14-SEP-2018 06:16, Electronic ventricular pacemaker now present Confirmed by Giovany Mcelroy ([id number]) on 09/15/2020 12:11:04 PM Referred By: Ivan Humphreys Confirmed By:Giovany Mcelroy
--- NOTE | 2020-09-20 16:29 | Discharge Summary ---
Date of Service September 15, 2020 Admission HPI Per Admitting Provider This is an 80-year-old woman who has a nonischemic cardiomyopathy as well as diabetes mellitus, dyslipidemia, hypertension and permanent atrial fibrillation. The atrial fibrillation has been present at least since 2005. She also has a left bundle branch block pattern, I am not sure exactly when this occurred but it was present in February 2016 but absent in April 2006. Her cardiomyopathy is more recent, echocardiography in September 2015 showed normal left ventricular size and function and a nuclear stress test in February 2016 suggested possible ischemia however it was not until March 01, 2017 when she had a catheterization which showed coronary artery disease but not flow-limiting and not felt to be related to her cardiomyopathy. At that time by echocardiography her ejection fraction was 45%. By April 30, 2017 her ejection fraction had dropped to 25 to 30% and medical therapy was instituted. By April 09, 2018 her left ventricular size was normal and she had a low normal left ventricular ejection fraction at 50 to 55%. However by August 2019 her EF had dropped to 40%, repeat catheterization November 20, 2019 showed some progression of coronary artery disease but again not enough to explain her left ventricular dysfunction. By July 29, 2020 her left ventricular ejection fraction was 30 to 35%. She has had symptoms of congestive heart failure consistent with left ventricular dysfunction. She is on medications for her cardiomyopathy including metoprolol succinate 100 mg twice a day and has been on this for some time, she is also Entresto and had been on the middle dose (100 mg combined twice a day) but could not tolerate it due to hypotension therefore that was reduced back to the low-dose of 50 mg combined twice a day. She is tolerating that dose. She is also on digoxin and diltiazem. With maximal tolerable medications and continued heart failure symptoms with a worsening ejection fraction she is referred for consideration of biventricular pacing and ICD implantation for primary prevention of sudden cardiac . At the time of my evaluation she was complaining of dyspnea on exertion but not orthopnea or PND, this appears stable. She is not having exertional chest discomfort, she does not have lightheadedness, dizziness or palpitations. She has never had presyncope or syncope. Admission Exam (Per Admitting) Constitutional Constitutional: Alert, cooperative and in no distress. HEENT: Unremarkable Neck: No jugular venous distention, carotid pulses are normal and equal bilaterally without bruits. Pulmonary: Clear to auscultation bilaterally. Cardiac: Regular rhythm with no murmur, gallop or rub. Abdomen: Soft, nontender with normal bowel sounds. Extremities: No edema. Distal pulses intact. Neurologic: No focal findings. Gait is steady. Skin: No rash, ecchymoses or petechiae. Discharge Data Procedures Performed Operation Date: 09/14/20 14:00 Actual Procedures p ICD Insertion Single or Dual - Ivan Humphreys MD s Lead LV (No Priopr Implant) - Ivan Humphreys MD s Venogram, Unilateral - Ivan Humphreys MD Hospital Course (1) Status post implantation of automatic cardioverter/defibrillator (AICD): A biventricular ICD was implanted without difficulty on . She is doing well postop day #1, this site looks good, the device is working well (2) Permanent atrial fibrillation: She is in permanent atrial fibrillation, her heart rate is somewhat rapid which is limiting the effectiveness of biventricular pacing. I did increase her digoxin yesterday but her heart rate remains fast. I am going to try to increase her calcium-blockade, she is on high-dose metoprolol succinate already and although I do not like to increase calcium blockade I have already increased her digoxin and we do not have to worry about heart block since she has the pacemaker in place. (3) Anticoagulant long-term use: Her site looks good and we should be able to restart her anticoagulation today. (4) Cardiomyopathy: For cardiomyopathy I would like to try to optimize her medical therapy as well as continue with biventricular pacing, however we need to control the heart rate to allow appropriate biventricular pacing. That may require an AV bibi block procedure but I want to try medications first. I am going to increase her calcium blockade, however that may limit our ability to increase Entresto so we may want to perform AV bibi block but I will wait until our follow-up to make that determination. Coding Level of Care Code None Diagnoses Status post implantation of automatic cardioverter/defibrillator (AICD) Z95.810 Permanent atrial fibrillation I48.21 Anticoagulant long-term use Z79.01 Cardiomyopathy I42.9
== END 2020-09-15 12:07 | disposition home or self-care (01) ==
LOC: 2S 12:38 → EP 12:38
PROC: EPB.ICD (2020-09-14 14:00)

== ENCOUNTER 2022-11-05 11:33 | Observation (INO) ==
--- NOTE | 2022-11-05 12:36 | Emergency Department Note ---
Impression & Plan Hypoglycemia, Dysarthria, Abnormal gait, Weakness, Falls ED Provider Note NAME: PARADISE MARMOLEJO AGE: 82 SEX: F : 1940 ARRIVES VIA: Walk-In INFORMANT: Patient, ED PROVIDER(S): Joon Alex MD CHIEF COMPLAINT: Weakness MEDICAL DECISION MAKING: Patient was seen due to concern for weakness and falls and inability to get up on her own. The patient did have blood work completed along with an EKG CT head lumbar spine. Blood work with mild hyperglycemia normal white count and the patient does have prerenal azotemia the patient CT head chest x-ray and lumbar. Patient did receive IV fluids. Without concerning findings. I did have a further discussion with the patient and the patient's family members. Patient does have weakness and falls. The patient does have borderline elevation in troponin. I did speak with the on-call hospitalist and the patient was admitted by Dr. Rodrigues. Prior /Outside records reviewed: I did review an echocardiogram from July 2022 which showed the patient's normal left ventricular size and systolic function with an EF 55 to 60% with no definite regional wall motion abnormal ities mild concentric left ventricular hypertrophy. Mildly dilated RV with mildly reduced systolic function moderate left atrial dilatation and severe right atrial dilation and mild mitral regurg with moderate to severe tricuspid regurg and moderate pulmonary hypertension. I did review patient's outpatient neurology note from February 2022 where they were waiting on whether or not the patient's pacemaker was compatible for MRI. Patient at this time had trouble with swallowing x1 year the patient has been slurring her words more frequently. Patient had reported to falling 6 times within the past year at the time of this visit in February 2022. Do not see an MRI thereafter but the patient did have an MRI completed in November 2019 and I reviewed the report which showed no acute intracranial abnormality no evidence of acute or subacute infarction. The patient does have age-related involutional changes with extensive T2 flair hyperdensities throughout the white matter suggestive of chronic microvascular ischemic disease. Differential diagnosis: Infection, dehydration, metabolic abnormality, hypo/hyperglycemia, electrolyte disturbance, anemia, hypoxia, cardiac sources, intracerebral event, toxicologic, neurologic, as well as other pathologies. Diagnostics, as interpreted by me: ECG: V paced rhythm, rate of 91, no ST elevations. Cardiac monitoring: An order was placed for continuous cardiac monitoring. The monitor shows a rate of 82 with paced rhythm. Patient was placed on pulse oximetry Medical decision rules: none Imaging studies: See below HPI: Patient presents with son and at bedside due to concern for weakness. The patient reported has had 8 falls over the last several weeks. The patient does not have any in-home care and is a known diabetic but does not take any medications check her blood sugars or watch what she eats. Patient denies any recent shocks from her device. The patient states that she does have generalized body aches and discomfort but also lower back pain after one of her falls. The patient denies any head strike. The patient is on Xarelto. The patient does not have any in-home care. The patient has occasionally able to a mbulates but is unable to get up on her own. Patient denies any headache. The patient does complain of diffuse body aches and associated weakness. Patient has been taking Tylenol up to 3 times per day over the last several days but none today. No nausea or vomiting. The patient does suffer from chronic dysarthria family states that this is chronic in nature. No additional exacerbating remitting factors PAST MEDICAL HISTORY: See Below PAST SURGICAL HISTORY: See Below SOCIAL HISTORY: See Below HOME MEDICATIONS: See Below ALLERGIES: See Below VITALS: See Below PHYSICAL EXAMINATION: GENERAL: NAD, wearing a mask, non-toxic. EYE EXAM: Normal conjunctiva. PERRL, no anisocoria and EOM's grossly intact w/o pain. NECK: Supple, no nuchal rigidity, no adenopathy, non-tender. No signs of meningismus. FROM of the neck with good chin to chest and neck extension. No stridor. LUNGS: Clear to auscultation. Normal chest wall mechanics. HEART: NSR, no MRG. ABDOMEN: Abdomen soft, non-tender, normo-active bowel sounds, no masses, no rebound or guarding. BACK: Midline lower lumbar discomfort without overlying skin changes or step- offs. SKIN: No rashes and no bruising. UPPER EXTREMITIES: Upper extremities are grossly normal. LOWER EXTREMITIES: Grossly normal, no edema. NEURO EXAM: A&O x3, cranial nerves II through XII grossly intact with exception of dysarthric speech, moves all 4 extremities but weakly and more pronounced in the bilateral lower extremities. 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 Diabetic peripheral neuropathy Diabetic retinopathy, nonproliferative Digoxin toxicity HTN (hypertension) Hypercholesterolemia Hypothyroidism Kidney stones LBBB (left bundle branch block) Mitral regurgitation Multiple joint pain Nocturnal hypoxia Psoriasis Pulmonary hypertension Restrictive lung disease Tricuspid valve insufficiency Surgical History History of appendectomy History of cholecystectomy History of hysterectomy S/P AV bibi ablation Status post implantation of automatic cardioverter/defibrillator (AICD) 09/14 SUZY Family History Family/Other Cancer Mother Diabetes Myocardial infarction Other Prostate cancer Denies family history of Ovarian cancer Breast cancer Colorectal cancer Social History Smoking Status: Never smoker Second Hand Exposure: No; Hx Alcohol Use: No Hx Substance Use: No Preferred Language: Lithuanian Communication Ability: Effective Visual Impairment: No Limitations Hearing Ability: Normal Manager Of Housekeeping Required: No Beliefs That Will Affect Care: None marital status: Current Living Situation: Spouse Current Living Situation Comment: Home with current occupational status: retired Other Information That Helps Us Care for You: No Feels Safe at Home: Yes Safety Concerns: Feels Safe At This Time Dental Care, Regularly: No Physical Activity Frequency: 1-2 Times per Week Seatbelt Use: sometimes Assistive Devices: Cane and Walker Assistive Devices Comment: Glasses for reading Allergies Allergies Allergy/AdvReac Type Severity Reaction Status Date / Time Penicillins Allergy Severe RASH,SWELLI Verified 09/19/22 13:14 NG Home Meds Home Medications Medication Instructions Recorded Confirmed potassium chloride 20 mEq 20 meq PO BID 09/12/18 11/05/22 tablet,extended release cholecalciferol (vitamin D3) 50 2,000 units PO DAILY 09/18/19 11/05/22 mcg (2,000 unit) tablet insulin glargine U-300 conc 300 20 unit subcut BID 09/29/22 11/05/22 unit/mL (1.5 mL) subcutaneous pen (Toujeo SoloStar U-300 Insulin) furosemide 40 mg tablet (Lasix) 40 mg PO BID 11/05/22 11/05/22 Previous Rx's Medication Instructions Recorded atorvastatin 40 mg tablet 40 mg PO HS #90 tabs 08/23/21 levothyroxine 50 mcg tablet 50 mcg PO DAILY #90 tabs 08/29/21 rivaroxaban 20 mg tablet 20 mg PO DAILY #90 tabs 02/08/22 Wheeled Walker #1 ea 03/02/22 sacubitril 24 mg-valsartan 26 mg 1 tab PO BID #180 tabs 05/25/22 tablet (Entresto) metoprolol succinate 100 mg 100 mg PO DAILY #90 tabs 07/31/22 tablet,extended release 24 hr isosorbide mononitrate 30 mg 30 mg PO DAILY #90 tabs 08/14/22 tablet,extended release 24 hr sitagliptin phosphate 50 mg tablet 50 mg PO DAILY #90 tabs 08/31/22 metformin 500 mg tablet 500 mg PO BID #180 tabs 09/29/22 Results & Data (ED) Vital Signs Vital Signs - 24 hr 11/05/22 11:37 11/05/22 12:53 11/05/22 12:53 Temperature 36.5 C Temperature Source Oral Pulse Rate 60 Pulse Rate [Right Finger] 83 Pulse Rhythm Regular Pulse Rhythm [Right Finger] Regular Pulse Strength Normal Pulse Strength [Right Finger] Normal Respiratory Rate 20 18 Respiratory Effort / Characteristics Non-Labored Spontaneous Non-Labored Respiratory Depth Normal Normal Respiratory Pattern Regular Blood Pressure 150/60 H Blood Pressure [Right Arm] 149/77 H Blood Pressure Mean 90 Blood Pressure Mean [Right Arm] 101 Blood Pressure Position [Right Arm] Lying Pulse Oximetry 96 96 Oxygen Delivery Method Room Air Room Air Room Air Sepsis Recent Fever Within 48 Hours No Sepsis New/Unexplained Change in Mental Status N/A Sepsis Action Taken by Nursing No Action Required Home Medications Current Medication List: was personally reviewed by me Laboratory Data Attestation: I reviewed the patient's lab results. 11/06/22 08:20 11/06/22 08:20 Lab Results 11/05/22 11/05/22 11/05/22 Range/Units 13:07 13:07 13:07 WBC 9.80 (4.8-10.8) K/ul RBC 5.28 H (3.93-5.22) M/uL Hgb 16.0 (12.0-16.0) g/dl Hct 49.1 H (34.1-44.9) % MCV 93.0 (80.0-100.0) fL MCH 30.3 (25.0-34.0) pg MCHC 32.6 (32.0-36.0) g/dL RDW Std Deviation 48.0 H (36.4-46.3) fL RDW Coeff of Luana 13.9 (11.5-14.5) % Plt Count 195 (130-400) K/uL MPV 11.0 (9.4-12.3) fL Immature Gran % (Auto) 0.2 % Neut % (Auto) 71.0 % Lymph % (Auto) 21.8 % [place] % (Auto) 5.9 % Eos % (Auto) 0.7 % Baso % (Auto) 0.4 % Neut # (Auto) 6.95 H (1.4-6.5) K/uL Lymph # (Auto) 2.14 (1.2-3.4) K/uL [place] # (Auto) 0.58 (0.24-0.82) K/uL Eos # (Auto) 0.07 (0-0.50) K/uL Baso # (Auto) 0.04 (0-0.2) K/uL Immature Gran # (Auto) 0.02 (0.00-0.02) K/uL Sodium 144 (136-145) mmol/L Potassium 3.9 (3.5-5.1) mmol/L Chloride 107 (98-107) mmol/L Carbon Dioxide 26 (21-32) mmol/L Anion Gap 11 (3-11) BUN 38 H (6-23) mg/dl Creatinine 0.86 (0.6-1.2) mg/dl Est Cr Clr Drug Dosing 50.2 ml/min Est GFR ( Amer) 72.4 ml/min Est GFR (Non-Af Amer) 62.5 ml/min BUN/Creatinine Ratio 44.2 H (10-20) Glucose 60 L (70-99(Fasting)) mg/dl POC Glucose (70-99) mg/dl Calcium 11.2 H (8.5-10.1) mg/dl Magnesium 1.9 (1.7-2.4) mg/dl Total Bilirubin 1.6 H (0.2-1.0) mg/dl AST 24 (13-39) U/L ALT 21 (7-52) U/L Alkaline Phosphatase 102 (34-104) U/L Troponin I High Sens 14.3 H (0-14) pg/ml Total Protein 7.4 (6.0-8.3) gm/dl Albumin 4.3 (3.4-5.0) gm/dl Globulin 3.1 (2.5-4.0) gm/dl Albumin/Globulin Ratio 1.4 (0.9-2) TSH 1.174 (0.300-4.500) uIu/ml 11/05/22 11/05/22 11/05/22 Range/Units 15:16 15:18 15:20 WBC (4.8-10.8) K/ul RBC (3.93-5.22) M/uL Hgb (12.0-16.0) g/dl Hct (34.1-44.9) % MCV (80.0-100.0) fL MCH (25.0-34.0) pg MCHC (32.0-36.0) g/dL RDW Std Deviation (36.4-46.3) fL RDW Coeff of Luana (11.5-14.5) % Plt Count (130-400) K/uL MPV (9.4-12.3) fL Immature Gran % (Auto) % Neut % (Auto) % Lymph % (Auto) % [place] % (Auto) % Eos % (Auto) % Baso % (Auto) % Neut # (Auto) (1.4-6.5) K/uL Lymph # (Auto) (1.2-3.4) K/uL [place] # (Auto) (0.24-0.82) K/uL Eos # (Auto) (0-0.50) K/uL Baso # (Auto) (0-0.2) K/uL Immature Gran # (Auto) (0.00-0.02) K/uL Sodium (136-145) mmol/L Potassium (3.5-5.1) mmol/L Chloride (98-107) mmol/L Carbon Dioxide (21-32) mmol/L Anion Gap (3-11) BUN (6-23) mg/dl Creatinine (0.6-1.2) mg/dl Est Cr Clr Drug Dosing ml/min Est GFR ( Amer) ml/min Est GFR (Non-Af Amer) ml/min BUN/Creatinine Ratio (10-20) Glucose (70-99(Fasting)) mg/dl POC Glucose 430 H* 371 H* 129 H (70-99) mg/dl Calcium (8.5-10.1) mg/dl Magnesium (1.7-2.4) mg/dl Total Bilirubin (0.2-1.0) mg/dl AST (13-39) U/L ALT (7-52) U/L Alkaline Phosphatase (34-104) U/L Troponin I High Sens (0-14) pg/ml Total Protein (6.0-8.3) gm/dl Albumin (3.4-5.0) gm/dl Globulin (2.5-4.0) gm/dl Albumin/Globulin Ratio (0.9-2) TSH (0.300-4.500) uIu/ml Administered Medications Atorvastatin Calcium (Atorvastatin 40 Mg Tab) 40 mg PO HS [facility] Stop: 12/05/22 20:59 Last Admin: 11/05/22 23:07 Dose: 40 mg Documented By: SOCORRO Furosemide (Furosemide 40 Mg Tab) 80 mg PO DAILY@0800 [facility] Stop: 12/06/22 07:59 Last Admin: 11/06/22 08:15 Dose: 80 mg Documented By: ALEXX Insulin Aspart (Insulin Aspart Per Unit) 0 units SC ACHS [facility] Stop: 12/05/22 18:32 Last Admin: 11/06/22 12:42 Dose: 8 units Documented By: MARILYN Co-signed By: JULIANNA Admin: 11/06/22 08:13 Dose: 5 units Documented By: ALEXX Co-signed By: KEILA Admin: 11/05/22 21:55 Dose: Not Given Documented By: Admin: 11/05/22 21:48 Dose: Not Given Documented By: SOCORRO Isosorbide Mononitrate (Isosorbide [place] Extended Rel 30 Mg Tabcr) 30 mg PO DAILY [facility] Stop: 12/06/22 08:59 Last Admin: 11/06/22 08:15 Dose: 30 mg Documented By: ALEXX Levothyroxine Sodium (Levothyroxine Sodium 50 Mcg Tablet) 50 mcg PO DAILYBB [facility] Stop: 12/06/22 06:29 Last Admin: 11/06/22 06:17 Dose: 50 mcg Documented By: SOCORRO Magnesium Oxide (Magnesium Oxide 400 Mg Tab) 400 mg PO DAILY [facility] Stop: 12/06/22 08:59 Last Admin: 11/06/22 08:15 Dose: 400 mg Documented By: ALEXX Metoprolol Succinate (Metoprolol Succ 50mg Ext Rel Tab) 100 mg PO DAILY [facility] Stop: 12/06/22 08:59 Last Admin: 11/06/22 08:14 Dose: 100 mg Documented By: ALEXX Potassium Chloride (Potassium Chloride Crtab 20 Meq Tabcr) 20 meq PO BID [facility] Stop: 12/05/22 20:59 Last Admin: 11/06/22 08:15 Dose: 20 meq Documented By: Admin: 11/05/22 23:07 Dose: 20 meq Documented By: SOCORRO Rivaroxaban (Rivaroxaban 20 Mg Tab) 20 mg PO DAILY [facility] Stop: 12/06/22 08:59 Last Admin: 11/06/22 08:15 Dose: 20 mg Documented By: ALEXX Sacubitril/Valsartan (Valsartan/Sacubitril 26/24mg Tab) 1 tab PO BID [facility] Stop: 12/05/22 20:59 Last Admin: 11/06/22 08:15 Dose: 1 tab Documented By: Admin: 11/05/22 23:07 Dose: 1 tab Documented By: SOCORRO Vitamin D (Cholecalciferol 1,000 Units 25 Mcg Tab) 2,000 units PO DAILY [facility] Stop: 12/06/22 08:59 Last Admin: 11/06/22 08:14 Dose: 2,000 units Documented By: ALEXX Discontinued Medications Dextrose (Dextrose 50% 50 Ml Syringe) 50 ml IV NOW ONE Stop: 11/05/22 14:29 Last Admin: 11/05/22 14:41 Dose: 50 ml Documented By: JOSEY Sodium Chloride (Nss 1000ml) 1,000 mls @ 999 mls/hr IV .Q1H1M [facility] Stop: 11/05/22 14:15 Last Infusion: 11/05/22 14:42 Dose: 0 mls/hr Documented By: Admin: 11/05/22 13:38 Dose: 999 mls/hr Documented By: RANJAN Lactated Ringer's (Lr) 1,000 mls @ 125 mls/hr IV .Q8H [facility] Stop: 11/06/22 00:14 Last Infusion: 11/06/22 08:24 Dose: 0 mls/hr Documented By: Infusion: 11/05/22 19:06 Dose: 0 mls/hr Documented By: Admin: 11/05/22 16:41 Dose: 125 mls/hr Documented By: ALESSIA Dextrose/Sodium Chloride (D5w And 1/2nss) 1,000 mls @ 100 mls/hr IV .Q10H [facility] Stop: 12/05/22 18:44 Last Infusion: 11/06/22 10:16 Dose: 0 mls/hr Documented By: Admin: 11/06/22 09:24 Dose: 100 mls/hr Documented By: Infusion: 11/06/22 09:24 Dose: 100 mls/hr Documented By: Admin: 11/06/22 05:29 Dose: 100 mls/hr Documented By: Infusion: 11/06/22 05:13 Dose: 0 mls/hr Documented By: Admin: 11/05/22 19:06 Dose: 100 mls/hr Documented By: ALESSIA Imaging Data Radiologist's Impression: Chest X-Ray 11/05/22 11:47 XR chest 1V portable HISTORY: illness COMPARISON: Chest 02/27/2022. FINDINGS: No pneumothorax. No pleural fusions. There is left-sided pacemaker/defibrillator. This partially obscures the left lung base. Mild elevation of the left hemidiaphragm persists. Left basilar linear densities are also unchanged and favor subsegmental atelectasis. Otherwise, no new focal lung consolidations to suggest a pneumonia. No evidence for pulmonary edema. Cardiomegaly is again noted. Advanced degenerative changes within the shoulders. There are low lung volumes. IMPRESSION: No significant change compared to the prior study. No acute process. ACT 112: Negative or not required by law. Electronically signed by: Kailash Ovalle M.D. 11/05/2022 12:42 PM Chest X-Ray 11/05/22 11:47 XR chest 1V portable HISTORY: illness COMPARISON: Chest 02/27/2022. FINDINGS: No pneumothorax. No pleural fusions. There is left-sided pacemaker /defibrillator. This partially obscures the left lung base. Mild elevation of the left hemidiaphragm persists. Left basilar linear densities are also unchanged and favor subsegmental atelectasis. Otherwise, no new focal lung consolidations to suggest a pneumonia. No evidence for pulmonary edema. Car diomegaly is again noted. Advanced degenerative changes within the shoulders. There are low lung volumes. IMPRESSION: No significant change compared to the prior study. No acute process. ACT 112: Negative or not required by law. Electronically signed by: Kailash Ovalle M.D. 11/05/2022 12:[address] 11/05/22 13:[address] DOSE: HISTORY: falls, weakness TECHNIQUE: Multiaxial CT images of the head were performed without the use of intravenous contrast. Automated exposure control was utilized for this study. A dose lowering technique was utilized adhering to the principles of ALARA. Comparison: Brain MRI 12/03/2019. Findings: The paranasal sinuses and mastoid air cells are clear. The calvarium and skull base are intact. There is no mass, hematoma, midline shift, acute infarct. White matter hypodensity is nonspecific but suggestive of microvascular ischemic change. The ventricles and sulci demonstrate mild age-related i nvolutional changes. Old lacunar infarcts within the right thalamus. Impression: No acute intracranial abnormality. Atrophy and microvascular ischemic changes. ACT 112: Negative or not required by law. Electronically signed by: Kailash Ovalle M.D. 11/05/2022 2:[address] 11/05/22 13:[address] DOSE: 1227.40 mGy.cm HISTORY: back pain, falls TECHNIQUE: Multiaxial CT images of the lumbar spine were performed and reformatted in the sagittal and coronal plane without the use of contrast. A dose lowering technique was utilized adhering to the principles of ALARA. COMPARISON: Lumbar spine CT 04/03/2022. FINDINGS: Levoscoliosis within the lumbar spine centered at the L1-L2 level. No fractures within the lumbar spine. Grade 1 anterolisthesis of L4 and L5, unchanged. Moderate facet degenerative changes within the lower lumbar spine. Severe disc space narrowing at L5-S1. There is also severe disc space narrowing at T12-L1, L1-L2 which is also unchanged. Mild disc space narrowing at L2-L3 and L4-L5. Mild paravertebral edema centered at the L2-L3 disc space level has slightly progressed. However, no paravertebral fluid collections identified. No erosive changes to suggest a discitis/osteomyelitis at this time. Moderate to severe central canal narrowing at L4-L5, unchanged. IMPRESSION: 1. No acute fractures identified within the lumbar spine. 2. Degenerative changes as described above. This is similar to the prior study. 3. Mild paravertebral edema at L2-L3 disc space level has progressed. This could be due to the degenerative change. No erosive changes to suggest a discitis/osteomyelitis. ACT 112: Negative or not required by law. Electronically signed by: Kailash Ovalle M.D. 11/05/2022 2:03 PM Discharge Plan Visit Data Chief Complaint: Lethargic Stated Complaint: PAIN, LETHARGIC, DIABETIC ED Provider: Joon Alex Discharge Problem: Hypoglycemia, Dysarthria, Abnormal gait, Weakness, Falls Patient Disposition: Admitted As Inpatient Discharge Instructions Interventions: ED Discharge Assessment Last Done: 11/05/22 18:33
--- NOTE | 2022-11-05 12:43 | XRay Report ---
XR chest 1V portable HISTORY: illness COMPARISON: Chest 02/27/2022. FINDINGS: No pneumothorax. No pleural fusions. There is left-sided pacemaker/defibrillator. This part ially obscures the left lung base. Mild elevation of the left hemidiaphragm persists. Left basilar li near densities are also unchanged and favor subsegmental atelectasis. Otherwise, no new focal lung co nsolidations to suggest a pneumonia. No evidence for pulmonary edema. Cardiomegaly is again noted. Ad vanced degenerative changes within the shoulders. There are low lung volumes. IMPRESSION: No significant change compared to the prior study. No acute process. ACT 112: Negative or not required by law. Electronically signed by: Kailash Ovalle M.D. 11/05/2022 12:42 PM
[2022-11-05] MEDS ORDERED: SODIUM CHLORIDE 0.9% 1000ML 1,000 ML IV SCH (13:15)
[2022-11-05 13:30] LABS: Basophils # (auto) 0.04 K/uL (0-0.2); Basophils % (auto) 0.4 %; Eosinophils # (auto) 0.07 K/uL (0-0.50); Eosinophils % (auto) 0.7 %; Hematocrit (blood only) 49.1 % (34.1-44.9); Immature Granulocytes # (auto) 0.02 K/uL (0.00-0.02); Immature Granulocytes % (auto) 0.2 %; Lymphocytes # (auto) 2.14 K/uL (1.2-3.4); Lymphocytes % (auto) 21.8 %; Mean Corpuscular Hemoglobin 30.3 pg (25.0-34.0); Mean Corpuscular Hgb Conc 32.6 g/dL (32.0-36.0); Monocytes # (auto) 0.58 K/uL (0.24-0.82); Monocytes % (auto) 5.9 %; Neutrophils # (auto) 6.95 K/uL (1.4-6.5); Platelet Count 195 K/uL (130-400); RDW Coefficient of Variation 13.9 % (11.5-14.5); Red Blood Count 5.28 M/uL (3.93-5.22)
[2022-11-05 13:52] LABS: Albumin Globulin Ratio 1.4 (0.9-2); Albumin Level 4.3 gm/dl (3.4-5.0); BUN Creatinine Ratio 44.2 (10-20); Bilirubin,Total 1.6 mg/dl (0.2-1.0); Calcium 11.2 mg/dl (8.5-10.1); Creatinine Clr Calc Pharmacy 50.2 ml/min; Est GFR (African American) 72.4 ml/min; Est GFR (Non-African American) 62.5 ml/min; Globulin 3.1 gm/dl (2.5-4.0); Magnesium 1.9 mg/dl (1.7-2.4); Potassium 3.9 mmol/L (3.5-5.1); Total Protein 7.4 gm/dl (6.0-8.3)
--- NOTE | 2022-11-05 14:05 | CT Scan Report ---
LUMBAR SPINE CT CT DOSE: 1227.40 mGy.cm HISTORY: back pain, falls TECHNIQUE: Multiaxial CT images of the lumbar spine were performed and reformatted in the sagittal an d coronal plane without the use of contrast. A dose lowering technique was utilized adhering to the principles of ALARA. COMPARISON: Lumbar spine CT 04/03/2022. FINDINGS: Levoscoliosis within the lumbar spine centered at the L1-L2 level. No fractures within the lumbar spine. Grade 1 anterolisthesis of L4 and L5, unchanged. Moderate facet degenerative changes wi thin the lower lumbar spine. Severe disc space narrowing at L5-S1. There is also severe disc space na rrowing at T12-L1, L1-L2 which is also unchanged. Mild disc space narrowing at L2-L3 and L4-L5. Mild paravertebral edema centered at the L2-L3 disc space level has slightly progressed. However, no parav ertebral fluid collections identified. No erosive changes to suggest a discitis/osteomyelitis at this time. Moderate to severe central canal narrowing at L4-L5, unchanged. IMPRESSION: 1. No acute fractures identified within the lumbar spine. 2. Degenerative changes as described above. This is similar to the prior study. 3. Mild paravertebral edema at L2-L3 disc space level has progressed. This could be due to the degene rative change. No erosive changes to suggest a discitis/osteomyelitis. ACT 112: Negative or not required by law. Electronically signed by: Kailash Ovalle M.D. 11/05/2022 2:03 PM
--- NOTE | 2022-11-05 14:09 | CT Scan Report ---
HEAD CT NONCONTRAST CT DOSE: HISTORY: falls, weakness TECHNIQUE: Multiaxial CT images of the head were performed without the use of intravenous contrast. A utomated exposure control was utilized for this study. A dose lowering technique was utilized adheri ng to the principles of ALARA. Comparison: Brain MRI 12/03/2019. Findings: The paranasal sinuses and mastoid air cells are clear. The calvarium and skull base are int act. There is no mass, hematoma, midline shift, acute infarct. White matter hypodensity is nonspecifi c but suggestive of microvascular ischemic change. The ventricles and sulci demonstrate mild age-rela kashif involutional changes. Old lacunar infarcts within the right thalamus. Impression: No acute intracranial abnormality. Atrophy and microvascular ischemic changes. ACT 112: Negative or not required by law. Electronically signed by: Kailash Ovalle M.D. 11/05/2022 2:06 PM
[2022-11-05 14:21] LABS: Troponin I High Sensitivity 14.3 pg/ml (0-14)
[2022-11-05] MEDS ORDERED: DEXTROSE 50% 50 ML SYRINGE IV ONE (14:28)
--- NOTE | 2022-11-05 14:55 | History & Physical Report ---
Date of Service November 05, 2022 Assessment & Plan (1) Abnormal gait: Plan: - Patient has been fallng frequently at home, at least 8 falls over the last several weeks none today. Not complaining of any specific pain, just that she aches all over and is tired, "due to age". - Spine CT withmild paravertebral edema at L2-L3 dissipates which is progressed from prior imaging. Otherwise head CT and CXR unremarkable. - Patient without any focal deficits, however chronic dysarthria and difficulty ambulating and would likely benefit from PT and OT evaluations and placement. - Cardiology expressed concerns at last electrophysiology visit for heart failure medications may be contributing to falls due to hypotension. Metoprolol decreased to 100 mg daily. - Monitor orthostatic vital signs daily while she is admitted. (2) Hypoglycemia: Plan: - Patient presented with family as they were concerned she was lethargic and confused. BSG on BMP 60. Patient denies taking any of her insulin or other d iabetes medications this morning. - Received D50 now sugar recheck 129. We will continue to check sugars closely over the next few hours, if they remain stable, will transition to ACHS checks. (3) Dysarthria: Plan: - Dysarthria, neck pain unchanged per family at bedside. - Will have speech therapy see patient while she is admitted. (4) Atrial fibrillation with rapid ventricular response: Plan: - S/p ablation, ICD. - Continue Xarelto, metoprolol. 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 Trop minimally elevated at 14.3, will obtain 2 hour repeat. - Continue statin, Imdur, metoprolol, Entresto. (6) Chronic diastolic congestive heart failure: Plan: - LV function has normalized with pacing. - Echo 08/19: Normal left ventricular size and function, EF 55 to 60%, no regional WMA, mild LVH. Mildly elevated mildly reduced systolic function, moderate pulmonary hypertension, moderate to severe tricuspid regurg. - Hold Lasix for one day given how dry she appears. - Januvia on hold due to hypoglycemia; Continue Entresto, Imdur, (7) Chronic kidney disease (CKD), stage III (moderate): Plan: - Cr 0.86, baseline. - Avoid nephrotoxins, renally dose med as able. (8) Diabetes mellitus type 2 with complications: Plan: - Patient is on Toujeo 20 units twice daily, Januvia, metformin. Per pharmacy counseling report from 1 month ago, patient has not had metformin refilled in nearly 1 year, and has 5 unused boxes of her insulin in her refrigerator. - Both family members at bedside confirms she does not check her sugars or regularly take medications. She is managing medications on her own. - Presented with a sugar of 60, received D50 and improved to 129. - Will check sugars frequently on day of admission, consult pharmacy for glycemic management given the unclear history of her insulin needs/complaints. (9) Hypothyroidism: Plan: - Continue levothyroxine. (10) HTN (hypertension): Plan: - Toprol, Imdur, Entresto. Plan - Admit to medicine with telemetry. - SCDs ordered and encouraged, Eliquis continued for VTE afib/ppx. - Full Code. History of Present Illness Chief Complaint: weakness, recurrent falls at home Primary Care Provider: Chaz Borges, III, ENEDELIA Marylou Luke is an 82-year-old female with past medical history of CAD, HFpEF, cardiomyopathy s/o BiV ICD, A. fib s/p ablation, pulmonary hypertension, hypercholesterolemia, DM2, and hypothyroidism who is presenting today for weakness and falls at home. She is reportedly had at least 8 falls in the past several weeks and has not able to ambulate her home, she does not have any assistance at home. She is a diabetic but refuses to check her sugar and is often noncompliant with her insulin and other diabetic medications. 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 All she wanted to do was sleep. According to him, patient is very active and does laundry, dishes, and can ambulate up and down the stairs. Her daughter, who is also at bedside reports that the patient has fallen at least 8 times in the past several weeks, ambulates very poorly, and she is at great risk for falls. She also reports behavior changes of the past few months, stating that she has sudden fits of rage and will try to harm her or others around her with her cane. Patient's bedroom is on the second floor of their home, and although there is a bedroom on the first floor she refused to move down to it. The patient's daughter is very concerned for patient's overall safety. The patient herself offers no complaints and just says that she feels very tired because of old age. On presentation, vital signs within normal limits, stable. Lab work notable for glucose of 60, calcium 11.2, T bili 1.6, troponin 14.3. Patient without any leukocytosis, anemia, electrolyte abnormality, impaired renal function and hepatic function. CXR and head CT unremarkable, lumbar spine CT without fracture, but there is mild paravertebral edema at L2-L3 dissipates which is progressed from prior imaging. There is no evidence of erosive changes to suggest discitis or osteomyelitis. Allergies Allergy/AdvReac Type Severity Reaction Status Date / Time Penicillins Allergy Severe RASH,SWELLI Verified 09/19/22 13:14 NG Home Medications Medication Instructions Recorded Confirmed Type potassium chloride 20 mEq 20 meq PO BID 09/12/18 11/05/22 History tablet,extended release cholecalciferol (vitamin D3) 50 2,000 units PO DAILY 09/18/19 11/05/22 History mcg (2,000 unit) tablet atorvastatin 40 mg tablet 40 mg PO HS #90 tabs 08/23/21 11/05/22 Rx levothyroxine 50 mcg tablet 50 mcg PO DAILY #90 tabs 08/29/21 11/05/22 Rx rivaroxaban 20 mg tablet 20 mg PO DAILY #90 tabs 02/08/22 11/05/22 Rx Wheeled Walker #1 ea 03/02/22 11/05/22 Rx sacubitril 24 mg-valsartan 26 mg 1 tab PO BID #180 tabs 05/25/22 11/05/22 Rx tablet (Entresto) metoprolol succinate 100 mg 100 mg PO DAILY #90 tabs 07/31/22 11/05/22 Rx tablet,extended release 24 hr isosorbide mononitrate 30 mg 30 mg PO DAILY #90 tabs 08/14/22 11/05/22 Rx tablet,extended release 24 hr sitagliptin phosphate 50 mg tablet 50 mg PO DAILY #90 tabs 08/31/22 11/05/22 Rx insulin glargine U-300 conc 300 20 unit subcut BID 09/29/22 11/05/22 History unit/mL (1.5 mL) subcutaneous pen (Toujeo SoloStar U-300 Insulin) metformin 500 mg tablet 500 mg PO BID #180 tabs 09/29/22 11/05/22 Rx furosemide 40 mg tablet (Lasix) 40 mg PO BID 11/05/22 11/05/22 History Past Med/Surg History Medical History Anticoagulant long-term use Atrial fibrillation CAD in chitina artery Cardiomyopathy Chronic diastolic congestive heart failure Chronic kidney disease (CKD), stage III (moderate) Cystocele 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 Diabetic peripheral neuropathy Diabetic retinopathy, nonproliferative Digoxin toxicity HTN (hypertension) Hypercholesterolemia Hypothyroidism Kidney stones LBBB (left bundle branch block) Mitral regurgitation Multiple joint pain Nocturnal hypoxia Psoriasis Pulmonary hypertension Restrictive lung disease Tricuspid valve insufficiency Surgical History History of appendectomy History of cholecystectomy History of hysterectomy S/P AV bibi ablation Status post implantation of automatic cardioverter/defibrillator (AICD) 09/14 SUZY Family History Family/Other Cancer Mother Diabetes Myocardial infarction Other Prostate cancer Denies family history of Ovarian cancer Breast cancer Colorectal cancer Social History Smoking Status: Never smoker Second Hand Exposure: No; Hx Alcohol Use: No Hx Substance Use: No Preferred Language: Greek Communication Ability: Effective Visual Impairment: No Limitations Hearing Ability: Normal [employer] 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 Required: No Beliefs That Will Affect Care: None marital status: Current Living Situation: Spouse current occupational status: retired Feels Safe at Home: Yes Dental Care, Regularly: No Physical Activity Frequency: 1-2 Times per Week Seatbelt Use: sometimes Assistive Devices: Cane, Denture - Upper and Denture - Lower Review of Systems Review of Systems: Constitutional: reports fatigue; no fever/chills, weakness, fatigue, myalgias, anorexia, night sweats Eyes: No diplopia, no worsening or blurred vision ENT: normal hearing, no trouble swallowing Respiratory: No cough, sputum, dyspnea at rest or on exertion Cardiovascular: No chest pain, tightness or palpitations Abdomen: No pain, nausea, vomiting, diarrhea or constipation : Denies dysuria, hematuria, increased urgency/frequency, urinary retention Musculoskeletal: No joint pain, calf pain, swelling Neurologic: No weakness, numbness/tingling, or balance problems Psychiatric: No anxiety or depression Skin: No rash or itch Physical Exam Physical Exam: General: awake, alert, no apparent distress, unkempt Head: Normocephalic, atraumatic ENT: Mucous membranes appear very dry; PERRL, EOMI, no pharyngeal exudate Chest: Clear to auscultation, on room air, no adventitious breath sounds Cardiac: Regular rate and rhythm, no murmur, no JVD, normal peripheral pulses, good capillary refill Abdominal: NABS x 4 quadrants, soft, nontender to palpation, no rebound, guarding or tenderness Extremities: Normal inspection, no peripheral edema or erythema, calfs nontender to palpation Psych: Normal mood and affect Neuro: AAO x 3, strength intact bilaterally and rated 5/5, no motor deficits, speech is clear, no peripheral sensory deficits Skin: no rash or erythema Results & Data Results & Data ([facility]) Vital Signs (Past 12 Hours) Vital Signs Temp Pulse Pulse Resp BP BP Pulse Ox 11/05/22 13:00 70 18 145/70 H 96 11/05/22 13:00 11/05/22 12:53 83 18 149/77 H 96 11/05/22 12:53 11/05/22 11:37 36.5 C 60 20 150/60 H 96 O2 Del Method 11/05/22 13:00 Room Air 11/05/22 13:00 Room Air 11/05/22 12:53 Room Air 11/05/22 12:53 Room Air 11/05/22 11:37 Room Air Laboratory Results Abnormal lab results 11/05/22 11/05/22 Range/Units 13:07 13:07 RBC 5.28 H (3.93-5.22) M/uL Hct 49.1 H (34.1-44.9) % RDW Std Deviation 48.0 H (36.4-46.3) fL Neut # (Auto) 6.95 H (1.4-6.5) K/uL BUN 38 H (6-23) mg/dl BUN/Creatinine Ratio 44.2 H (10-20) Glucose 60 L (70-99(Fasting)) mg/dl Calcium 11.2 H (8.5-10.1) mg/dl Total Bilirubin 1.6 H (0.2-1.0) mg/dl Troponin I High Sens 14.3 H (0-14) pg/ml Diagnostic Findings Chest X-Ray 11/05/22 11:47 XR chest 1V portable HISTORY: illness COMPARISON: Chest 02/27/2022. FINDINGS: No pneumothorax. No pleural fusions. There is left-sided pacemaker/defibrillator. This partially obscures the left lung base. Mild elevation of the left hemidiaphragm persists. Left basilar linear densities are also unchanged and favor subsegmental atelectasis. Otherwise, no new focal lung consolidations to suggest a pneumonia. No evidence for pulmonary edema. Cardiomegaly is again noted. Advanced degenerative changes within the shoulders. There are low lung volumes. IMPRESSION: No significant change compared to the prior study. No acute process. ACT 112: Negative or not required by law. Electronically signed by: Kailash Ovalle M.D. 11/05/2022 12:[address] 11/05/22 13:[address] DOSE: HISTORY: falls, weakness TECHNIQUE: Multiaxial CT images of the head were performed without the use of intravenous contrast. Automated exposure control was utilized for this study. A dose lowering technique was utilized adhering to the principles of ALARA. Comparison: Brain MRI 12/03/2019. Findings: The paranasal sinuses and mastoid air cells are clear. The calvarium and skull base are intact. There is no mass, hematoma, midline shift, acute infarct. White matter hypodensity is nonspecific but suggestive of microvascular ischemic change. The ventricles and sulci demonstrate mild age-related involutional changes. Old lacunar infarcts within the right thalamus. Impression: No acute intracranial abnormality. Atrophy and microvascular ischemic changes. ACT 112: Negative or not required by law. Electronically signed by: Kailash Ovalle M.D. 11/05/2022 2:[address] 11/05/22 13:[address] DOSE: 1227.40 mGy.cm HISTORY: back pain, falls TECHNIQUE: Multiaxial CT images of the lumbar spine were performed and reformatted in the sagittal and coronal plane without the use of contrast. A dose lowering technique was utilized adhering to the principles of ALARA. COMPARISON: Lumbar spine CT 04/03/2022. FINDINGS: Levoscoliosis within the lumbar spine centered at the L1-L2 level. No fractures within the lumbar spine. Grade 1 anterolisthesis of L4 and L5, unchanged. Moderate facet degenerative changes within the lower lumbar spine. Severe disc space narrowing at L5-S1. There is also severe disc space narrowing at T12-L1, L1-L2 which is also unchanged. Mild disc space narrowing at L2-L3 and L4-L5. Mild paravertebral edema centered at the L2-L3 disc space level has slightly progressed. However, no paravertebral fluid collections identified. No erosive changes to suggest a discitis/osteomyelitis at this time. Moderate to severe central canal narrowing at L4-L5, unchanged. IMPRESSION: 1. No acute fractures identified within the lumbar spine. 2. Degenerative changes as described above. This is similar to the prior study. 3. Mild paravertebral edema at L2-L3 disc space level has progressed. This could be due to the degenerative change. No erosive changes to suggest a discitis/osteomyelitis. ACT 112: Negative or not required by law. Electronically signed by: Kailash Ovalle M.D. 11/05/2022 2:03 PM ECG Additional Comments: Ventricular-paced rhythm Abnormal ECG When compared with ECG of 11-JAN-2021 17:00, Vent. rate has increased BY 21 BPM. Code Status & VTE Plan Code Status Full code. Supervising Physician Co-Signing Physician Notes Patient seen and examined, chart reviewed, case discussed with Patsy Yañez PA-C and I agree with the assessment and plan as above except as otherwise noted Labs and images reviewed Comfort is an 82-year-old female with a past medical history of multiple falls, fatigue, labile blood sugars with hypotension, and chronic dysarthria. She has a history of A. fib status post ablation with ICD in place on Xarelto. At bedside patient is alert, oriented and pleasant but is with prominent dysarthria. Endorses bilateral lower extremity weakness which is chronic. Reports that dysarthria is chronic and unchanged, unclear if this could have been a result of stroke in the past. Had followed up with neurology but imaging had been deferred as patient was with chronic symptoms outside the window for acute treatment and was pending verification of MRI compatibility with her ICD, and had concerns for contrast on her kidneys. Suspect patient's acute confusion, may have been due to hypoglycemia and she has returned to near cognitive baseline but with increased bilateral lower extremity weakness by time of provider assessment. Has not been on aspirin, but is anticoagulated for her A. fib. Sensation is intact in hands and feet without asymmetry, patient is with 34 -/5 hip flexion bilaterally, 4 -/5 ankle dorsiflexion/plantar flexion bilaterally. Agree with management above. PG Care Time/CCT Total # of Minutes Spent Total Time Spent with Patient: Total time spent is greater than 50% in coordination of care (as documented) at patient's floor/unit and/or counseling patient: Coding Level of Care Code 93107 INT INP/OBS CARE 3/75MIN Diagnoses Abnormal gait R26.9 Hypoglycemia E16.2 Dysarthria R47.1 Atrial fibrillation with rapid ventricular response I48.91 CAD in ch[place] artery I25.10 Chronic diastolic congestive heart failure I50.32 Chronic kidney disease (CKD), stage III (moderate) N18.3 Diabetes mellitus type 2 with complications E11.8 Hypothyroidism E03.9 HTN (hypertension) I10
[2022-11-05] MEDS ORDERED: LACTATED RINGER'S 1,000 ML IV SCH (16:15)
[2022-11-05 17:10] LABS: Influenza A virus by PCR Negative (Neg); Influenza B virus by PCR Negative (Neg); RSV by PCR Negative (Neg); SARS CoV2 RNA(COVID-19) Ceph NEGATIVE (Negative)
[2022-11-05] MEDS ORDERED: ALUMINUM/MAGNESIUM SUSP 30 ML UDC PO PRN (18:33)
[2022-11-05] MEDS ORDERED: PHARMACY GLYCEMIC MGMT CONSULT PRN (18:33)
[2022-11-05] MEDS ORDERED: GLUCOSE 40% GEL 15 GM TUBE PO PRN (18:33)
[2022-11-05] MEDS ORDERED: GLUCAGON FOR INJ 1 MG VIAL SQ PRN (18:33)
[2022-11-05] MEDS ORDERED: DEXTROSE 50% 50 ML SYRINGE IV PRN (18:33)
[2022-11-05] MEDS ORDERED: CARBOHYDRATES FOR HYPOGLYCEMIA PO PRN (18:33)
[2022-11-05] MEDS ORDERED: POLYETHYLENE (MIRALAX) 17 GM PACK PO PRN (18:33)
[2022-11-05] MEDS ORDERED: GLUCOSE 10 TAB/TUBE PO PRN (18:33)
[2022-11-05] MEDS: D5W AND 1/2NSS 1,000 ML IV SCH (19:06)
[2022-11-05] MEDS: INSULIN ASPART PER UNIT SC SCH ×2 (21:48→21:55)
--- NOTE | 2022-11-05 22:43 | Electrocardiogram Report ---
Test Reason : Blood Pressure : / mmHG Vent. Rate : 091 BPM Atrial Rate : 089 BPM P-R Int : 000 ms QRS Dur : 122 ms QT Int : 396 ms P-R-T Axes : 000 243 047 degrees QTc Int : 487 ms Ventricular-paced rhythm Abnormal ECG When compared with ECG of 11-JAN-2021 17:00, Vent. rate has increased BY 21 BPM Confirmed by Fernando Turner ([id number]) on 11/05/2022 10:43:09 PM Referred By: REFERRED SELF Confirmed By:Fernando Turner
[2022-11-05] MEDS: ATORVASTATIN 40 MG TAB PO SCH (23:07)
[2022-11-05] MEDS: POTASSIUM CHLORIDE CRTAB 20 MEQ TABCR PO SCH (23:07)
[2022-11-05] MEDS: VALSARTAN/SACUBITRIL 26/24MG TAB PO SCH (23:07)
[2022-11-06] MEDS: D5W AND 1/2NSS 1,000 ML IV SCH ×2 (05:29→09:24)
[2022-11-06] MEDS: LEVOTHYROXINE SODIUM 50 MCG TABLET PO SCH (06:17)
[2022-11-06] MEDS: INSULIN ASPART PER UNIT SC SCH ×4 (08:13→21:00)
[2022-11-06] MEDS: CHOLECALCIFEROL 1,000 UNITS 25 MCG TAB PO SCH (08:14)
[2022-11-06] MEDS: METOPROLOL SUCC 50MG EXT REL TAB PO SCH (08:14)
[2022-11-06] MEDS: MAGNESIUM OXIDE 400 MG TAB PO SCH (08:15)
[2022-11-06] MEDS: FUROSEMIDE 40 MG TAB PO SCH ×2 (08:15→17:18)
[2022-11-06] MEDS: RIVAROXABAN 20 MG TAB PO SCH (08:15)
[2022-11-06] MEDS: VALSARTAN/SACUBITRIL 26/24MG TAB PO SCH ×2 (08:15→21:02)
[2022-11-06] MEDS: ISOSORBIDE MONO EXTENDED REL 30 MG TABCR PO SCH (08:15)
[2022-11-06] MEDS: POTASSIUM CHLORIDE CRTAB 20 MEQ TABCR PO SCH ×2 (08:15→21:03)
[2022-11-06 08:48] LABS: Hematocrit (blood only) 44.6 % (34.1-44.9); Hemoglobin 14.7 g/dl (12.0-16.0); Mean Corpuscular Hemoglobin 30.7 pg (25.0-34.0); Mean Corpuscular Volume 93.1 fL (80.0-100.0); Mean Platelet Volume 10.8 fL (9.4-12.3); Platelet Count 151 K/uL (130-400); RDW Coefficient of Variation 13.9 % (11.5-14.5); RDW Standard Deviation 48.3 fL (36.4-46.3); Red Blood Count 4.79 M/uL (3.93-5.22)
[2022-11-06] MEDS ORDERED: FUROSEMIDE 40 MG TAB PO SCH (09:00)
[2022-11-06 09:06] LABS: BUN Creatinine Ratio 36.5 (10-20); Calcium 9.8 mg/dl (8.5-10.1); Creatinine Clr Calc Pharmacy 58.4 ml/min; Est GFR (African American) 86.8 ml/min; Est GFR (Non-African American) 74.9 ml/min; Magnesium 1.7 mg/dl (1.7-2.4); Potassium 3.8 mmol/L (3.5-5.1)
[2022-11-06 10:01] LABS: C Reactive Protein < 0.50 mg/dl (0-0.5); Creatine Kinase 154 U/L (26-192)
[2022-11-06 10:05] LABS: Appearance Urine Clear (Clear); Bacteria Urine Automated Negative (Negative); Bilirubin Urine Negative (Negative); Blood Urine Negative (Negative); Cast Urine Automated 0 /lpf (0-5); Color Urine Yellow; Glucose Urine UA Trace (Negative); Ketones Urine 1+ (Negative); Leukocyte Esterase Urine 1+ (Negative); Nitrite Urine Positive (Negative); Protein Urine 1+ (Negative); RBC Urine Automated 0-4 /hpf (0-4); Specific Gravity Urine 1.025 (1.000-1.030); Urobilinogen Urine Negative (Negative)
[2022-11-06 12:17] LABS: Estimated Average Glucose 151 mg/dl; Hemoglobin A1C 6.9 % (4.5-5.6)
[2022-11-06] MEDS ORDERED: LANTUS PER UNIT CHARGE SQ ONE (13:00)
--- NOTE | 2022-11-06 13:20 | Pharmacy Report ---
Pharmacy Glycemic Short Note 2 - Date of Service November 06, 2022 - Glycemic Short BSG Results (Last 24 hours): 11/05/22 11/05/22 11/05/22 13:07 15:16 15:18 Glucose 60 L POC Glucose 430 H* 371 H* 11/05/22 11/05/22 11/05/22 15:20 18:15 21:45 Glucose POC Glucose 129 H 85 105 H 11/06/22 11/06/22 08:20 12:40 Glucose 187 H POC Glucose 224 H OUTPATIENT ANTIDIABETIC REGIMEN: * Toujeo 20 units SQ BID * Metformin 500mg PO BID * Januvia 50mg PO daily * HbA1c: 6.9% (11/06/22) ASSESSMENT: * Ms Luke is an 82yo diabetic F admitted for weakness/falls. * It is reported that pt is noncompliant with SMBG and medication use. * Pt was hypoglycemic on admission (BSG 60mg/dL). Following administration of dextrose, BSGs tina to >400mg/dL. BSGs have since resolved. * Dextrose removed from IVF this morning. * Pt received slightly less insulin with breakfast than was indicated. "Pre- lunch" BSG was obtained after patient had eaten part of her lunch. * Will hold off on adding basal insulin at this time. PLAN FOR INPATIENT GLYCEMIC CONTROL: * Hold outpatient oral diabetes medications * Basal insulin * none at this time * Bolus insulin * NovoLog per scale ACHS or Q6hrs while NPO * Goal Range: Low 120 mg/dL - High 150 mg/dL * Correction Factor: 30 mg/dL/unit * Nutritional / Prandial insulin per carb ratio of 1 unit per 10 grams CHO consumed
--- NOTE | 2022-11-06 14:23 | Hospitalist Progress Note ---
Date of Service November 06, 2022 Assessment & Plan (1) Dysarthria: Plan: SEVERE. Outpatient neurology clinic note from 02/2022 references it had been present at least 1 year at that time. Thus, present and progressive for 18+ months. MRIs and a series of blood work was advised at that clinic visit. The dysarthria, weakness of all limbs, falls, muscle atrophy, etc - all concerning for a neurodegenerative disorder. Recurrent CVAs a possibility given her chronic a.fib but she is on anticoagulation. I ordered CPK, B12, ESR, CRP, TSH, ammonia, etc today -- all wnl (B12 low- normal, but this does not explain her symptoms/signs). Plan - PT, OT evals Speech eval Neurology consultation requested - I corresponded with [place] Lui [place] [facility] regarding her case Start with MRI brain w/ and w/o contrast Also obtain MRI lumbar spine w/ and w/o contrast due to L2-L3 paravertebral edema seen on CT lumbar spine Defer additional w/u to neurology (2) Multiple falls: Plan: see #1 above highly concerning presentation for a neurodegenerative disorder, recurrent strokes, other etiology can't exclude arrhythmia - obtain ICD/pacer interrogation can't exclude episodes of hypoglycemia contributing arthritis of major joints of LEs could also enhance fall risk PT, OT Neurology consult etc The lumbar spine CT findings may simply be due to trauma/fall, but can't rule out edema due to infectious process Paravertebral edema could also be due to OA Await MRI (3) ICD (implantable cardioverter-defibrillator), biventricular, in situ: Plan: per records her device appears to be MRI compatible interrogation requested device rep will need to come to [facility] to place device in MRI mode for her films (4) Hypoglycemia: Plan: Presenting glucose of 60 No hypoglycemia since then Insulins continued albeit at lower dose (5) Atrial fibrillation with rapid ventricular response: Plan: S/p ablation by Dr Ivan Humphreys in the past. Pacing on monitor. Continue Xarelto, metoprolol. (6) CAD in ione artery: Plan: No evidence of ACS. No ischemic symptoms. Continue statin, Imdur, metoprolol, Entresto. (7) Chronic kidney disease (CKD), stage III (moderate): Plan: stage 3a - baseline CrCL 45-59 BMP in am (8) Diabetes mellitus type 2 with complications: Plan: Patient is on Toujeo 20 units twice daily, Januvia, metformin. Per pharmacy counseling report from 1 month ago, patient has not had metformin refilled in nearly 1 year, and has 5 unused boxes of her insulin in her refrigerator. Both family members at time of admission confirmed she does not check her sugars or regularly take medications. She is managing medications on her own. Presented with a sugar of 60, received D50 and improved to 129. Add back lantus - 10 units BID to start. Novolog SSI. A1C 6.9%. (9) Hypothyroidism: Plan: Continue levothyroxine. TSH 1.1. (10) HTN (hypertension): Plan: Labile thus far. Cont Toprol, Imdur, Entresto. Adjust meds as needed. (11) Hypercalcemia: Plan: Peak total calcium level 11.2, now <10. Etiology? Intact PTH level sent and was wnl. Has an enlarged lymph node left neck - could be related. Needs f/u. (12) Chronic right-sided congestive heart failure: Plan: LV function has normalized with pacing. Echo 08/19: Normal left ventricular size and function, EF 55 to 60%, no regional WMA, mild LVH. Mildly reduced systolic function of right ventricle, moderate pulmonary hypertension, moderate to severe tricuspid regurg. Resume lasix BID. Cont Entresto. Cont beta mauricio. Does not appear decompensated today. (13) Lymphadenopathy: Plan: left neck this will need close f/u (14) DVT prophylaxis: Plan: xarelto Plan spoke with pt's son by phone - updated him explained we will be awaiting neurology consult and MRIs total care time today - complex care coordination - multiple phone calls, reviewing old records, ordering tests, etc - 70 minutes Admission and Anticipated Discharge Date Admission Date: November 05, 2022 Subjective patient speaks very slowly, severe dysarthria present no aphasia - her speech is fluent, sentence structure is normal she was even cracking jokes during the visit she states the speech has been present like this for "at least a year" when asked if she ever saw a neurologist for this issue she said no -- however, she did see [facility] in February 2022 (but she didn't recall this) she states she has fallen "8 times" over the last few weeks she falls backwards denies loss of consciousness her legs are weak and simply give out she also has "arthritis" in her shoulders and knees in addition to her legs her arms are weak "I'm losing my muscles" denies difficulty swallowing tele- pacing Review of Systems Review of Systems: gen - no fevers cv - no cp pulm - no dyspnea GI - no abd pain Physical Exam Physical Exam: gen - NAD, SEVERE dysarthria/slow speech eyes - PERRL neck - no JVD mouth - MMM heart - RRR, s1 s2 lungs - CTA b/l abd - soft NT ND BS+ ext - no edema, pulses 2+ b/l knees - knee sleeves/braces in place musculo - muscle atrophy noted of limbs, hands, shoulder regions, etc neuro - upper ext DTRs 2+, patellar reflexes 1+ b/l, no fasciculations seen; strength of arms 3-4/5; handgrip 5/5; hip flexion 4/5 b/l; dysarthria as noted above lymph - firm, 1.5-2cm lymph node left submandibular region of neck Results & Data Results & Data ([facility]) Vital Signs (Past 12 Hours) Vital Signs Temp Pulse Pulse Resp BP Pulse Ox O2 Del Method 11/06/22 11:13 36.5 C 70 18 107/65 96 Room Air 11/06/22 07:54 36.5 C 70 18 154/83 H 95 Room Air 11/06/22 05:54 70 11/06/22 07:00 Room Air 11/06/22 04:09 36.4 C L 70 18 145/83 H 96 Room Air Laboratory Results Laboratory Results - last 24 hr 11/06/22 11/06/22 11/06/22 08:20 08:20 08:20 WBC 8.90 RBC 4.79 Hgb 14.7 Hct 44.6 MCV 93.1 MCH 30.7 MCHC 33.0 RDW Std Deviation 48.3 H RDW Coeff of Luana 13.9 Plt Count 151 MPV 10.8 ESR Sodium 140 Potassium 3.8 Chloride 108 H Carbon Dioxide 26 Anion Gap 6 BUN 27 H Creatinine 0.74 Est Cr Clr Drug Dosing 58.4 Est GFR ( Amer) 86.8 Est GFR (Non-Af Amer) 74.9 BUN/Creatinine Ratio 36.5 H Glucose 187 H POC Glucose Estimat Average Glucose 151 Hemoglobin A1c 6.9 H Calcium 9.8 Magnesium 1.7 Ammonia Total Creatine Kinase C-Reactive Protein Vitamin B12 PTH Intact Urine Color Urine Appearance Urine pH Ur Specific [place] Urine Protein Urine Glucose (UA) Urine Ketones Urine Blood Urine Nitrite Urine Bilirubin Urine Urobilinogen Ur Leukocyte Esterase Urine WBC (Auto) Urine RBC (Auto) U Hyaline Cast (Auto) U Epithel Cells (Auto) Urine Bacteria (Auto) 11/06/22 11/06/22 11/06/22 09:15 09:15 09:15 WBC RBC Hgb Hct MCV MCH MCHC RDW Std Deviation RDW Coeff of Luana Plt Count MPV ESR 17 Sodium Potassium Chloride Carbon Dioxide Anion Gap BUN Creatinine Est Cr Clr Drug Dosing Est GFR ( Amer) Est GFR (Non-Af Amer) BUN/Creatinine Ratio Glucose POC Glucose Estimat Average Glucose Hemoglobin A1c Calcium Magnesium Ammonia Total Creatine Kinase C-Reactive Protein Cancelled Vitamin B12 232 PTH Intact Urine Color Urine Appearance Urine pH Ur Specific [place] Urine Protein Urine Glucose (UA) Urine Ketones Urine Blood Urine Nitrite Urine Bilirubin Urine Urobilinogen Ur Leukocyte Esterase Urine WBC (Auto) Urine RBC (Auto) U Hyaline Cast (Auto) U Epithel Cells (Auto) Urine Bacteria (Auto) 11/06/22 11/06/22 11/06/22 09:15 09:15 09:15 WBC RBC Hgb Hct MCV MCH MCHC RDW Std Deviation RDW Coeff of Luana Plt Count MPV ESR Sodium Potassium Chloride Carbon Dioxide Anion Gap BUN Creatinine Est Cr Clr Drug Dosing Est GFR ( Amer) Est GFR (Non-Af Amer) BUN/Creatinine Ratio Glucose POC Glucose Estimat Average Glucose Hemoglobin A1c Calcium Magnesium Ammonia 35.0 Total Creatine Kinase 154 C-Reactive Protein < 0.50 Vitamin B12 PTH Intact 55.4 Urine Color Urine Appearance Urine pH Ur Specific [place] Urine Protein Urine Glucose (UA) Urine Ketones Urine Blood Urine Nitrite Urine Bilirubin Urine Urobilinogen Ur Leukocyte Esterase Urine WBC (Auto) Urine RBC (Auto) U Hyaline Cast (Auto) U Epithel Cells (Auto) Urine Bacteria (Auto) 11/06/22 11/06/22 11/06/22 09:50 12:40 16:40 WBC RBC Hgb Hct MCV MCH MCHC RDW Std Deviation RDW Coeff of Luana Plt Count MPV ESR Sodium Potassium Chloride Carbon Dioxide Anion Gap BUN Creatinine Est Cr Clr Drug Dosing Est GFR ( Amer) Est GFR (Non-Af Amer) BUN/Creatinine Ratio Glucose POC Glucose 224 H 177 H Estimat Average Glucose Hemoglobin A1c Calcium Magnesium Ammonia Total Creatine Kinase C-Reactive Protein Vitamin B12 PTH Intact Urine Color Yellow Urine Appearance Clear Urine pH 6.0 Ur Specific [place] 1.025 Urine Protein 1+ H Urine Glucose (UA) Trace H Urine Ketones 1+ H Urine Blood Negative Urine Nitrite Positive A Urine Bilirubin Negative Urine Urobilinogen Negative Ur Leukocyte Esterase 1+ H Urine WBC (Auto) 1-5 Urine RBC (Auto) 0-4 U Hyaline Cast (Auto) 0 U Epithel Cells (Auto) 10-20 H Urine Bacteria (Auto) Negative 11/06/22 20:00 WBC RBC Hgb Hct MCV MCH MCHC RDW Std Deviation RDW Coeff of Luana Plt Count MPV ESR Sodium Potassium Chloride Carbon Dioxide Anion Gap BUN Creatinine Est Cr Clr Drug Dosing Est GFR ( Amer) Est GFR (Non-Af Amer) BUN/Creatinine Ratio Glucose POC Glucose 186 H Estimat Average Glucose Hemoglobin A1c Calcium Magnesium Ammonia Total Creatine Kinase C-Reactive Protein Vitamin B12 PTH Intact Urine Color Urine Appearance Urine pH Ur Specific [place] Urine Protein Urine Glucose (UA) Urine Ketones Urine Blood Urine Nitrite Urine Bilirubin Urine Urobilinogen Ur Leukocyte Esterase Urine WBC (Auto) Urine RBC (Auto) U Hyaline Cast (Auto) U Epithel Cells (Auto) Urine Bacteria (Auto) PG Care Time/CCT Total # of Minutes Spent Total Time Spent with Patient: Total time spent is greater than 50% in coordination of care (as documented) at patient's floor/unit and/or counseling patient: Prolonged Care Time Prolonged Care Time: Yes Total Prolonged Care Time: 70 Coding Level of Care Code 40336 SUB INP/OBS CARE 3/50MIN (25 - SIGNIFICANT, SEPARATELY IDENTIFIABLE ) Diagnoses Dysarthria R47.1 Multiple falls R29.6 ICD (implantable cardioverter-defibrillator), biventricular, in situ Z95.810 Hypoglycemia E16.2 Atrial fibrillation with rapid ventricular response I48.91 CAD in ione artery I25.10 Chronic kidney disease (CKD), stage III (moderate) N18.3 Diabetes mellitus type 2 with complications E11.8 Hypothyroidism E03.9 HTN (hypertension) I10 Hypercalcemia E83.52 Chronic right-sided congestive heart failure I50.812 Lymphadenopathy R59.1 DVT prophylaxis Z29.9 Additional Codes Prolonged Care Time - Prolonged Care Time: Yes ([id number])
[2022-11-06] MEDS: ATORVASTATIN 40 MG TAB PO SCH (21:02)
[2022-11-06] MEDS ORDERED: OLANZapine 10 MG/2.1 ML SDV IM STA ×2 (23:16→23:53)
[2022-11-06] MEDS ORDERED: OLANZapine 10 MG/2.1 ML SDV IM ONE (23:19)
[2022-11-07] MEDS: VALSARTAN/SACUBITRIL 26/24MG TAB PO SCH ×2 (04:39→21:16)
[2022-11-07] MEDS: ISOSORBIDE MONO EXTENDED REL 30 MG TABCR PO SCH (04:39)
[2022-11-07] MEDS: LEVOTHYROXINE SODIUM 50 MCG TABLET PO SCH (05:33)
[2022-11-07 07:58] LABS: BUN Creatinine Ratio 29.7 (10-20); Calcium 10.5 mg/dl (8.5-10.1); Creatinine Clr Calc Pharmacy 46.4 ml/min; Est GFR (African American) 67.6 ml/min; Est GFR (Non-African American) 58.3 ml/min; Potassium 4.1 mmol/L (3.5-5.1)
[2022-11-07] MEDS: INSULIN ASPART PER UNIT SC SCH ×4 (08:39→21:21)
[2022-11-07] MEDS: LANTUS PER UNIT CHARGE SQ SCH ×2 (08:42→21:21)
[2022-11-07] MEDS ORDERED: LANTUS PER UNIT CHARGE SQ SCH (09:00)
[2022-11-07] MEDS: CHOLECALCIFEROL 1,000 UNITS 25 MCG TAB PO SCH (10:12)
[2022-11-07] MEDS: FUROSEMIDE 40 MG TAB PO SCH ×2 (10:13→14:27)
[2022-11-07] MEDS: RIVAROXABAN 20 MG TAB PO SCH (10:13)
[2022-11-07] MEDS: MAGNESIUM OXIDE 400 MG TAB PO SCH (10:13)
[2022-11-07] MEDS: CYANOCOBALAMIN (B-12) 500 MCG TABLET PO SCH (10:13)
[2022-11-07] MEDS: METOPROLOL SUCC 50MG EXT REL TAB PO SCH (10:14)
[2022-11-07] MEDS: POTASSIUM CHLORIDE CRTAB 20 MEQ TABCR PO SCH (10:23)
--- NOTE | 2022-11-07 11:51 | Neurology Consultation ---
Date of Consultation November 07, 2022 Assessment & Plan (1) Dysarthria: (2) Dysphagia: (3) Progressive bulbar palsy: (4) Cerebrovascular disease: Plan 82-year-old female with severe progressive dysarthria/dysphagia and associated gait dysfunction, occurring in the context of extensive cerebrovascular disease/Binswanger's disease. She does not have lingual atrophy or fasciculations which would make ALS less likely but not completely excluded. Further, she does not have ptosis or ophthalmoplegia which would make myasthenia gravis less likely as well. I also note that she has normal ocular motility which would argue against progressive supranuclear palsy. Although she does appear to have mild proximal upper extremity weakness, she has a normal CK, ESR, and CRP which may make an acquired myositis or myopathy less likely. Inclusion body myositis may not be completely excluded although she appears to have relatively intact quadricep strength and I believe her degree of dysarthria would be rather significant for [employer]. I would recommend obtaining an up-to-date gadolinium-enhanced brain MRI. Would also order a noncontrast MRI of the cervical spine. Outpatient 4 limb EMG with repetitive stimulation. Would also check acetylcholine receptor antibodies, binding, blocking, and modulating. Consultations with PT/OT/speech therapy. Patient may continue with atorvastatin and Xarelto. I would not recommend adding low-dose aspirin given elevated fall risk in this patient. History of Present Illness Reason for Consultation: Progressive dysarthria and weakness Requesting Physician: Dr. Mosqueda Attending Physician: Felicia Archer MD History of Present Illness The patient is an 82-year-old female who was initially evaluated in the neurology clinic this past February, was seen by Molly Chandler PA-C, and Dr. Vernon at that time, for further evaluation and management of progressive dysarthria and dysphagia beginning 1 year prior. She has had associated recurrent falls without associated syncope. She had undergone a brain MRI in November 2019 for further assessment of dysarthria. I did independently review these images which revealed rather extensive chronic cerebrovascular disease and associated cerebral atrophy. The observed cerebrovascular disease is fairly extensive and is located juxtacortical, subcortical, periventricular, and throughout the basal ganglia bilaterally, right greater than left, there are chronic ischemic lesions within the midbrain, margie, and cerebellum as well. There is no hydrocephalus. There is not appear to be any focal midbrain atrophy. There is no crossed bun sign within the margie. Although the cerebellum is mildly atrophic, not out of proportion to the observed generalized atrophy. Patient did have a videofluoroscopic swallowing study completed this past April which was negative for aspiration. There was mild vallecular retention with thin liquids. Mild esophageal dysmotility noted with thickened pudding. An EMG was recommended at the time of her assessment with [facility] neurology this past February although this test was not completed. She had presented to the [facility] emergency department on November 05 for further assessment of weakness, recurrent falls. She did have a CT of the head completed which was negative for hemorrhage or acute process. There was evidence of atrophy and chronic microvascular ischemic disease as well as chronic lacunar infarcts. I did independently review these images and agree with these findings as described by the interpreting radiologist. Patient also had a lumbar spine CT completed which was negative for acute fractures. There was some paravertebral edema at the L2-3 disc space likely related to progressive degenerative change. Neurology has been consulted for further evaluation of possible underlying neuromuscular or neurodegenerative condition in the context of patient's persistent progressive dysarthria and progressive gait dysfunction with recurrent falls, weakness. I note that she has normal inflammatory markers including ESR and CRP. She has a normal vitamin B12 level as well as a normal total CK. Patient's speech is extremely dysarthric and difficult to understand at times. She complains of diffuse muscular weakness with some associated shoulder girdle pain, not clear if this is muscle pain or joint pain, however. Allergies Allergy/AdvReac Type Severity Reaction Status Date / Time Penicillins Allergy Severe RASH,SWELLI Verified 09/19/22 13:14 NG Home Medications Medication Instructions Recorded Confirmed Type potassium chloride 20 mEq 20 meq PO BID 09/12/18 11/05/22 History tablet,extended release cholecalciferol (vitamin D3) 50 2,000 units PO DAILY 09/18/19 11/05/22 History mcg (2,000 unit) tablet atorvastatin 40 mg tablet 40 mg PO HS #90 tabs 08/23/21 11/05/22 Rx levothyroxine 50 mcg tablet 50 mcg PO DAILY #90 tabs 08/29/21 11/05/22 Rx rivaroxaban 20 mg tablet 20 mg PO DAILY #90 tabs 02/08/22 11/05/22 Rx Wheeled Walker #1 ea 03/02/22 11/05/22 Rx sacubitril 24 mg-valsartan 26 mg 1 tab PO BID #180 tabs 05/25/22 11/05/22 Rx tablet (Entresto) metoprolol succinate 100 mg 100 mg PO DAILY #90 tabs 07/31/22 11/05/22 Rx tablet,extended release 24 hr isosorbide mononitrate 30 mg 30 mg PO DAILY #90 tabs 08/14/22 11/05/22 Rx tablet,extended release 24 hr sitagliptin phosphate 50 mg tablet 50 mg PO DAILY #90 tabs 08/31/22 11/05/22 Rx insulin glargine U-300 conc 300 20 unit subcut BID 09/29/22 11/05/22 History unit/mL (1.5 mL) subcutaneous pen (Toujeo SoloStar U-300 Insulin) metformin 500 mg tablet 500 mg PO BID #180 tabs 09/29/22 11/05/22 Rx furosemide 40 mg tablet (Lasix) 40 mg PO BID 11/05/22 11/05/22 History Patient History Medical History Anticoagulant long-term use Atrial fibrillation CAD in [place] artery Cardiomyopathy Chronic diastolic congestive heart failure Chronic kidney disease (CKD), stage III (moderate) Cystocele 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 Diabetic peripheral neuropathy Diabetic retinopathy, nonproliferative Digoxin toxicity HTN (hypertension) Hypercholesterolemia Hypothyroidism Kidney stones LBBB (left bundle branch block) Mitral regurgitation Multiple joint pain Nocturnal hypoxia Psoriasis Pulmonary hypertension Restrictive lung disease Tricuspid valve insufficiency Surgical History History of appendectomy History of cholecystectomy History of hysterectomy S/P AV bibi ablation Status post implantation of automatic cardioverter/defibrillator (AICD) 09/14 SUZY Family History Family/Other Cancer Mother Diabetes Myocardial infarction Other Prostate cancer Denies family history of Ovarian cancer Breast cancer Colorectal cancer Social History Smoking Status: Never smoker Second Hand Exposure: No; Hx Alcohol Use: No Hx Substance Use: No Preferred Language: [place] Communication Ability: Effective Visual Impairment: No Limitations Hearing Ability: Normal License And Permit Specialist Required: No Beliefs That Will Affect Care: None marital status: Current Living Situation: Spouse Current Living Situation Comment: Home with current occupational status: retired Other Information That Helps Us Care for You: No Feels Safe at Home: Yes Safety Concerns: Feels Safe At This Time Dental Care, Regularly: No Physical Activity Frequency: 1-2 Times per Week Seatbelt Use: sometimes Assistive Devices: Cane and Walker Assistive Devices Comment: Glasses for reading Review of Systems Constitutional: + fatigue; no fever and no chills Eyes: no blind spots, no diplopia and no eye pain Ear, Nose, Mouth, Throat: as per Subjective / HPI and + dysphagia; no hearing loss and no pain with swallowing Respiratory: no cough and no dyspnea Cardiovascular: no chest pain and no palpitations Gastrointestinal: no nausea and no vomiting Genitourinary: + urinary incontinence Musculoskeletal: + back pain, + neck pain and + myalgia Integumentary: no rash and no lesions Neurologic: as per Subjective / HPI, + gait abnormality, + unsteadiness, + localized weakness and + memory loss; no headache(s) Psychiatric: no depression and no anxiety Hematologic / Lymphatic: no easy bleeding and no lymphadenopathy Exam (Neuro) Constitutional: well developed and + frail appearing Eyes: normal visual ayala by confrontation, PERRL, normal accommodation and EOM intact bilaterally; no fundoscopic abnormality and no papilledema Cardiovascular: Vessels: normal carotid upstroke; no carotid bruit Neurologic: Oriented to:: Person, Place and Time Memory: Remote Intact; negative Short Term Intact Attention: Span Intact; negative Concentration Intact Speech Fluency: Dysarthria Speech Aphasia: negative Aphasia Fund of Knowledge: Past History and Vocabulary; negative Current Events Cranial Nerves: Normal II, III, IV, , V, VII, VIII, IX, X, XI and XII Motor Strength: negative Normal Lower Extremities or Normal Upper Extremities Motor Tone: Normal Lower Extremities and Normal Upper Extremities Rigidity: None Spasticity: None Muscle Bulk/Involuntary Movements: No Involuntary Movements; negative Muscle Atrophy Sensation: Light Touch Intact, Pain/Temperature Intact and Proprioception Intact; negative Vibration Intact Coordination: Finger-Nose Abnormal and Heel-Espinal Abnormal Deep Tendon Reflexes: Rt Triceps: 1+, Lt Triceps: 1+, Rt Biceps: 1+, Lt Biceps: 1+, Rt Brachioradialis: 1+, Lt Brachioradialis: 1+, Rt Patellar: 1+, Lt Patellar: 1+, Rt Ankle: 1+ and Lt Ankle: 1+ Special Tests: negative Babinski Present Details: Gait cannot be tested in the context of patient's current neurological status. Results & Data ([facility]) Vital Signs (Past 12 Hours) Vital Signs Temp Pulse Pulse Resp BP BP Pulse Ox 11/07/22 08:18 36.6 C 90 20 173/83 H 91 11/07/22 04:00 212/80 H 11/07/22 04:05 36.3 C L 68 16 202/96 H 98 11/07/22 00:00 70 O2 Del Method 11/07/22 08:18 Room Air 11/07/22 04:00 11/07/22 04:05 Room Air 11/07/22 00:00 Laboratory Results WBC 8.90, hemoglobin 14.7, hematocrit 44.6, platelet count 151, ESR 17, sodium 139, potassium 4.1, BUN 27, creatinine 0.91, glucose 276, hemoglobin A1c 6.9, calcium 10.5, magnesium 1.7, ammonia 35.0, total CK1 54, CRP less than 0.50, vitamin B12 232, TSH 1.174. Diagnostic Findings Brain MRI from November 2019 reviewed and as described in the HPI. Recent head CT reviewed and as described in the HPI as well. Electrocardiogram revealed a ventricular paced rhythm, 91 bpm. An echocardiogram completed August 16, 2022 revealed normal left ventricular size and systolic function, EF 55 to 60%, no definite regional wall motion abnormalities. The left atria is moderately dilated, right atrium severely dilated, there is moderate pulmonary hypertension. PG Care Time/CCT Total # of Minutes Spent Total Time Spent with Patient: Total time spent is greater than 50% in coordination of care (as documented) at patient's floor/unit and/or counseling patient: Coding Level of Care Code 19114 INT INP/OBS CARE 3/75MIN Diagnoses Dysarthria R47.1 Dysphagia R13.10 Progressive bulbar palsy G12.22 Cerebrovascular disease I67.9
[2022-11-07] MEDS ORDERED: GADOBUTROL 65ML VIAL IV ONE (13:45)
--- NOTE | 2022-11-07 14:16 | Magnetic Resonance Report ---
Brain MRI WITH AND WITHOUT CONTRAST HISTORY: dysarthria, profound weakness, falls TECHNIQUE: Multiplanar multisequence MRI of the brain was performed both before and after the intrave nous administration of contrast. COMPARISON STUDY: Brain MRI 12/03/2019. Head CT 11/05/2022. FINDINGS: There is no mass, hematoma, midline shift, or acute infarct. The paranasal sinuses are kevin r. The mastoid air cells are clear. The ventricles and sulci demonstrate moderate age-related involut ional changes. Scattered foci of T2 hyperintensity seen within the periventricular and subcortical wh ite matter are nonspecific but suggestive of moderate microvascular ischemic changes. This remains un changed. The major vascular flow voids at the skull base are well-maintained. Prior bilateral lens re placement. Old lacunar infarcts again noted within the right thalamus, margie, and cerebellar hemispher es. IMPRESSION: No significant change compared to the prior study. No acute intracranial abnormality. ACT 112: Negative or not required by law. Electronically signed by: Kailash Ovalle M.D. 11/07/2022 2:14 PM
--- NOTE | 2022-11-07 14:33 | Hospitalist Progress Note ---
Date of Service November 07, 2022 Assessment & Plan (1) Dysarthria: Plan: SEVERE. Outpatient neurology clinic note from 02/2022 references it had been present at least 1 year at that time. Thus, present and progressive for 18+ months. MRI brain, EMG/NCV of bilateral lower extremities, video swallow, and post of lab tests were all ordered at that time but never completed The dysarthria, weakness of all limbs, numerous falls, muscle atrophy, etc - all concerning for a neurodegenerative disorder. Recurrent CVAs a possibility given her chronic a.fib but she is on anticoagulation. Then, with behavior disturbance overnight on 11/06-possible hospital delirium? Here, CPK, B12, ESR, CRP, TSH, ammonia all wnl (B12 low-normal, but this does not explain her symptoms/signs). B12 deficiency could explain her previous complaint from neurology outpatient visit of neuropathic type pain in the feet MRI brain w/ and w/o contrast with severe cerebrovascular disease as per neurology interpretation but unchanged from previous. 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 all day Likely hospital delirium in the setting of underlying Binswanger's -Hold home Lasix and potassium (3) Multiple falls: Plan: Most likely secondary to Binswanger's as above given severe cerebrovascular disease seen on brain MRI. No new stroke found pacer interrogation performed and does show some issues with oversensing of the T wave causing the pacer to malfunction and she had some episodes of bradycardia into the 40s on telemetry here but seems asymptomatic can't exclude episodes of hypoglycemia as she does not check her blood sugars at home but continues to give herself insulin arthritis of major joints of LEs could also enhance fall risk as well as neuropathy of the feet and B12 deficiency Brain MRI and lumbar spine MRI as above -Checking cervical spine MRI -Replace B12 -Other work-up as above (4) Hypoglycemia: Plan: Presenting glucose of 60 No hypoglycemia since then Insulins continued albeit at lower dose (5) Atrial fibrillation with rapid ventricular response: Plan: S/p ablation by Dr Ivan Humphreys in the past. Pacing on monitor. Continue Xarelto, metoprolol (6) CAD in [place] artery: Plan: No evidence of ACS. No ischemic symptoms. Continue statin, Imdur, metoprolol, Entresto, Xarelto (7) Chronic kidney disease (CKD), stage III (moderate): Plan: stage 3a Creatinine stable today -Avoid nephrotoxins -renally dose meds when appropriate -follow BMP (8) Diabetes mellitus type 2 with complications: Plan: Patient is on Toujeo 20 units twice daily, Januvia, metformin as an outpatient. Per pharmacy counseling report from 1 month ago, patient has not had metformin refilled in nearly 1 year, and has 5 unused boxes of her insulin in her refrigerator. Both family members at time of admission confirmed she does not check her sugars or regularly take medications. She is managing medications on her own. Presented with a sugar of 60, received D50 and improved to 129. Continue lower dose of lantus - 10 units BID to start. Novolog SSI. A1C 6.9%. (9) Hypothyroidism: Plan: Continue levothyroxine. TSH 1.1. (10) HTN (hypertension): Plan: Mildly elevated here Cont Toprol, Imdur, Entresto. Adjust meds as needed. Holding home Lasix (11) Hypercalcemia: Plan: Peak total calcium level 11.2, now <10. Etiology? Intact PTH level sent and was wnl. Has an enlarged lymph node left neck - could be related. Needs f/u. (12) Chronic right-sided congestive heart failure: Plan: LV function has normalized with pacing. Echo 08/19: Normal left ventricular size and function, EF 55 to 60%, no regional WMA, mild LVH. Mildly reduced systolic function of right ventricle, moderate pulmonary hypertension, moderate to severe tricuspid regurg. Holding home Lasix as above due to no p.o. intake today Cont Entresto. Cont beta mauricio. Does not appear decompensated today. (13) Lymphadenopathy: Plan: left neck this will need close f/u (14) DVT prophylaxis: Plan: herlinda Hernandez spoke with pt's son and in the hallway and again later in the phone with after testing completed PT/OT consults placed and is agreeable to rehab if recommended Admission and Anticipated Discharge Date Admission Date: November 05, 2022 Subjective Patient was confused overnight and was in restraints and given Zyprexa. She was able to be taken out of restraints this morning and did take her morning pills. The nurse reports after that she has been sleeping all day long. I saw her in the early afternoon and she did wake up briefly to answer a couple of questions. Denied pain. She then quickly fell back asleep. On telemetry she was having some bradycardia to the 40s at times. I had her pacer interrogated and discussed with [employer] rep. She had a malfunction in her pacemaker which was corrected by the inside account representative. I discussed her care with her and son. Her reports no cognitive issues that he knows of. She is just been having the speech issues for over a year, difficulty with swallowing, and then more recently multiple falls. She usually is able to do chores around the house. He does all the driving. Review of Systems Review of Systems: Unobtainable due to cognitive status Physical Exam Constitutional: WD/WN, vitals as above Eyes: + anicteric sclerae ENMT: external ear and nose normal, oropharynx normal Neck: trachea midline, no thyromegaly Respiratory: normal respiratory effort, lungs clear to auscultation Cardiovascular: RRR, no murmur, no edema Chest (Breasts): Chest: normal inspection of chest Gastrointestinal (Abdomen): normal bowel sounds, soft, nontender, no hepatosplenomegaly Musculoskeletal: Extremities: extremities normal to inspection; no cyanosis and no clubbing Skin: no rashes, warm and dry Neurologic: Speech is dysarthric Moving all 4 limbs but unable to perform strength testing due to cognitive/mental status Lymphatic: no lymphedema Results & Data Results & Data ([facility]) Vital Signs (Past 12 Hours) Vital Signs Temp Pulse Pulse Resp BP BP Pulse Ox 11/07/22 08:00 82 11/07/22 08:18 36.6 C 90 20 173/83 H 91 11/07/22 04:00 212/80 H 11/07/22 04:05 36.3 C L 68 16 202/96 H 98 O2 Del Method 11/07/22 08:00 11/07/22 08:18 Room Air 11/07/22 04:00 11/07/22 04:05 Room Air Laboratory Results 11/07/22 11/07/22 11/07/22 Range/Units 16:49 14:33 07:52 Sodium (136-145) mmol/L Potassium (3.5-5.1) mmol/L Chloride (98-107) mmol/L Carbon Dioxide (21-32) mmol/L Anion Gap (3-11) BUN (6-23) mg/dl Creatinine (0.6-1.2) mg/dl Est Cr Clr Drug Dosing ml/min Est GFR ( Amer) ml/min Est GFR (Non-Af Amer) ml/min BUN/Creatinine Ratio (10-20) Glucose (70-99(Fasting)) mg/dl POC Glucose 202 H 233 H 224 H (70-99) mg/dl Calcium (8.5-10.1) mg/dl 11/07/22 11/06/22 Range/Units 07:12 20:00 Sodium 139 (136-145) mmol/L Potassium 4.1 (3.5-5.1) mmol/L Chloride 102 (98-107) mmol/L Carbon Dioxide 26 (21-32) mmol/L Anion Gap 11 (3-11) BUN 27 H (6-23) mg/dl Creatinine 0.91 (0.6-1.2) mg/dl Est Cr Clr Drug Dosing 46.4 ml/min Est GFR ( Amer) 67.6 ml/min Est GFR (Non-Af Amer) 58.3 ml/min BUN/Creatinine Ratio 29.7 H (10-20) Glucose 276 H (70-99(Fasting)) mg/dl POC Glucose 186 H (70-99) mg/dl Calcium 10.5 H (8.5-10.1) mg/dl PG Care Time/CCT Total # of Minutes Spent Total Time Spent with Patient: Total time spent is greater than 50% in coordination of care (as documented) at patient's floor/unit and/or counseling patient: Coding Level of Care Code 23719 SUB INP/OBS CARE 50MIN Diagnoses Dysarthria R47.1 Cerebrovascular disease I67.9 Multiple falls R29.6 Hypoglycemia E16.2 Atrial fibrillation with rapid ventricular response I48.91 CAD in [place] artery I25.10 Chronic kidney disease (CKD), stage III (moderate) N18.3 Diabetes mellitus type 2 with complications E11.8 Hypothyroidism E03.9 HTN (hypertension) I10 Hypercalcemia E83.52 Chronic right-sided congestive heart failure I50.812 Lymphadenopathy R59.1 DVT prophylaxis Z29.9
--- NOTE | 2022-11-07 15:30 | Magnetic Resonance Report ---
MR lumbar spine wo/w con CLINICAL HISTORY: LE weakness, falls; abnl L-spine on CT TECHNIQUE: 3 plane localizer images, sagittal T2, sagittal T1, sagittal STIR, axial T1, axial T2 darvin g with postcontrast axial T1 and sagittal T1 fat-saturated sequences were obtained of the lumbar spin e, before and after intravenous administration of 12 mL of MultiHance. Comparison: Comparison is made to CT lumbar spine 11/05/2022 FINDINGS: Grade 1 anterolisthesis is seen at L4-L5. L1-L2: There is a prominent disc osteophyte complex with broad based posterior disc bulge with mild c anal stenosis, AP diameter 10 mm. There is bilateral moderate neuroforaminal stenosis. L2-L3: There is broad-based posterior disc bulge with moderate canal stenosis, AP diameter 7 mm and m oderate to severe bilateral neural foraminal stenosis. L3-L4: No significant abnormality. L4-L5: There is a broad-based posterior disc bulge resulting in mild canal stenosis and mild bilatera l neural foraminal stenosis. L5-S1: No significant abnormality. The spinal ligaments are intact, without evidence of disruption or abnormal signal intensity. The spi nal cord is normal in signal intensity and there is no evidence of cord contusion. There is no eviden ce of an extradural, intradural, extramedullary or intramedullary lesion. Visualized soft tissues are normal. IMPRESSION: Multilevel degenerative changes as above. There is up to moderate canal stenosis, AP diameter 7 mm, a nd up to moderate to severe bilateral neural foraminal stenosis. ACT 112: Negative or not required by law. Electronically signed by: Papo Stapleton M.D. 11/07/2022 3:29 PM
[2022-11-07] MEDS ORDERED: LACTATED RINGER'S 1,000 ML IV SCH (16:15)
[2022-11-07] MEDS: ATORVASTATIN 40 MG TAB PO SCH (21:16)
[2022-11-08] MEDS: LEVOTHYROXINE SODIUM 50 MCG TABLET PO SCH (05:03)
[2022-11-08 07:19] LABS: Basophils # (auto) 0.03 K/uL (0-0.2); Basophils % (auto) 0.3 %; Eosinophils % (auto) 2.1 %; Hemoglobin 15.6 g/dl (12.0-16.0); Immature Granulocytes # (auto) 0.04 K/uL (0.00-0.02); Immature Granulocytes % (auto) 0.4 %; Lymphocytes % (auto) 27.7 %; Mean Corpuscular Hemoglobin 30.1 pg (25.0-34.0); Mean Corpuscular Hgb Conc 32.5 g/dL (32.0-36.0); Mean Corpuscular Volume 92.5 fL (80.0-100.0); Mean Platelet Volume 11.2 fL (9.4-12.3); Monocytes # (auto) 0.56 K/uL (0.24-0.82); Neutrophils # (auto) 5.96 K/uL (1.4-6.5); Neutrophils % (auto) 63.5 %; Platelet Count 175 K/uL (130-400); RDW Coefficient of Variation 13.7 % (11.5-14.5); RDW Standard Deviation 46.6 fL (36.4-46.3); Red Blood Count 5.19 M/uL (3.93-5.22); White Blood Count 9.39 K/ul (4.8-10.8)
[2022-11-08 07:40] LABS: Albumin Globulin Ratio 1.5 (0.9-2); Albumin Level 3.9 gm/dl (3.4-5.0); BUN Creatinine Ratio 27.8 (10-20); Bilirubin,Total 1.9 mg/dl (0.2-1.0); Calcium 10.3 mg/dl (8.5-10.1); Creatinine Clr Calc Pharmacy 46.3 ml/min; Est GFR (African American) 68.5 ml/min; Est GFR (Non-African American) 59.1 ml/min; Globulin 2.6 gm/dl (2.5-4.0); Magnesium 1.7 mg/dl (1.7-2.4); Potassium 3.8 mmol/L (3.5-5.1); Total Protein 6.5 gm/dl (6.0-8.3)
[2022-11-08] MEDS: RIVAROXABAN 20 MG TAB PO SCH (07:52)
[2022-11-08] MEDS: VALSARTAN/SACUBITRIL 26/24MG TAB PO SCH ×2 (07:52→21:43)
[2022-11-08] MEDS: METOPROLOL SUCC 50MG EXT REL TAB PO SCH (07:52)
[2022-11-08] MEDS: ISOSORBIDE MONO EXTENDED REL 30 MG TABCR PO SCH (07:53)
[2022-11-08] MEDS: CYANOCOBALAMIN (B-12) 500 MCG TABLET PO SCH (07:53)
[2022-11-08] MEDS: MAGNESIUM OXIDE 400 MG TAB PO SCH (07:54)
[2022-11-08 08:03] LABS: Lyme Ab IgM w/WB Rflx Negative (Negative)
[2022-11-08] MEDS ORDERED: MAGNESIUM SULFATE / D5W 1 GM/100 ML BAG IV ONE (08:09)
[2022-11-08 08:11] LABS: Lyme Ab IgG w/WB Rflx Positive (Negative)
[2022-11-08] MEDS: INSULIN ASPART PER UNIT SC SCH ×4 (08:14→21:44)
[2022-11-08] MEDS: LANTUS PER UNIT CHARGE SQ SCH ×2 (08:15→21:45)
[2022-11-08 08:36] LABS: C Reactive Protein 0.84 mg/dl (0-0.5)
[2022-11-08] MEDS ORDERED: LANTUS PER UNIT CHARGE SQ SCH (09:00)
--- NOTE | 2022-11-08 13:12 | Pharmacy Report ---
Pharmacy Glycemic Short Note 2 - Date of Service November 08, 2022 - Glycemic Short BSG Results (Last 24 hours): 11/07/22 11/07/22 11/07/22 14:33 16:49 20:02 Glucose POC Glucose 233 H 202 H 155 H 11/08/22 11/08/22 11/08/22 06:35 07:33 11:29 Glucose 104 H POC Glucose 96 146 H OUTPATIENT ANTIDIABETIC REGIMEN: * Toujeo 20 units SQ BID * Metformin 500mg PO BID * Januvia 50mg PO daily * HbA1c: 6.9% (11/06/22) ASSESSMENT: 11/08/22: * BSGs are much improved today since resuming Lantus yesterday. * Patient has not been eating. * No changes indicated for today. Continue conservative management in the setting of recent hypoglycemia and minimal PO intake. 11/06 * Ms Luke is an 82yo diabetic F admitted for weakness/falls. * It is reported that pt is noncompliant with SMBG and medication use. * Pt was hypoglycemic on admission (BSG 60mg/dL). Following administration of dextrose, BSGs tina to >400mg/dL. BSGs have since resolved. * Dextrose removed from IVF this morning. * Pt received slightly less insulin with breakfast than was indicated. "Pre- lunch" BSG was obtained after patient had eaten part of her lunch. * Will hold off on adding basal insulin at this time. PLAN FOR INPATIENT GLYCEMIC CONTROL: * Hold outpatient oral diabetes medications * Basal insulin * Lantus 10 units SQ BID * Bolus insulin * NovoLog per scale ACHS or Q6hrs while NPO * Goal Range: Low 120 mg/dL - High 150 mg/dL * Correction Factor: 25 mg/dL/unit * Nutritional / Prandial insulin per carb ratio of 1 unit per 9 grams CHO consumed
--- NOTE | 2022-11-08 16:14 | Hospitalist Progress Note ---
Date of Service November 08, 2022 Assessment & Plan (1) Dysarthria: Plan: SEVERE. Outpatient neurology clinic note from 02/2022 references it had been present at least 1 year at that time. Thus, present and progressive for 18+ months. MRI brain, EMG/NCV of bilateral lower extremities, video swallow, and post of lab tests were all ordered at that time but never completed The dysarthria, weakness of all limbs, numerous falls, muscle atrophy, etc - all concerning for a neurodegenerative disorder. Recurrent CVAs a possibility given her chronic a.fib but she is on anticoagulation. Then, with behavior disturbance overnight on 11/06-possible hospital delirium? Here, CPK, B12, ESR, CRP, TSH, ammonia all wnl (B12 low-normal, but this does not explain her symptoms/signs). B12 deficiency could explain her previous complaint from neurology outpatient visit of neuropathic type pain in the feet MRI brain w/ and w/o contrast with severe cerebrovascular disease as per neurology interpretation but unchanged from previous. 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 Unfortunately, not much can be done for this -Check myasthenia gravis antibody panel-pending - Lyme titer with positive IgG, negative IgM--has had previous positive infection-this is likely indicative of old disease. 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 Likely hospital delirium in the setting of underlying Binswanger's -Okay to restart home Lasix and potassium for this evening as she is not tolerating p.o. (3) Multiple falls: Plan: Most likely secondary to Binswanger's as above given severe cerebrovascular disease seen on brain MRI. No new stroke found pacer interrogation performed and does show some issues with oversensing of the T wave causing the pacer to malfunction and she had some episodes of bradycardia into the 40s on telemetry here but seems asymptomatic. Pacer malfunction has been corrected by the [employer] insurance follow up representative can't exclude episodes of hypoglycemia as she does not check her blood sugars at home but continues to give herself insulin arthritis of major joints of LEs could also enhance fall risk as well as neuropathy of the feet and B12 deficiency Brain MRI and lumbar spine MRI as above -Checking cervical spine MRI-negative for significant disease -Continue to replace B12 -Other work-up as above -PT/OT recommending rehab (4) Hypoglycemia: Plan: Presenting glucose of 60 No hypoglycemia since then Insulins continued albeit at lower dose (5) Atrial fibrillation with rapid ventricular response: Plan: S/p ablation by Dr Ivan Humphreys in the past. Pacing on monitor. 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 No ischemic symptoms. Continue statin, Imdur, metoprolol, Entresto, Xarelto (7) Chronic kidney disease (CKD), stage III (moderate): Plan: stage 3a Creatinine stable today -Avoid nephrotoxins -renally dose meds when appropriate -follow BMP (8) Diabetes mellitus type 2 with complications: Plan: Patient is on Toujeo 20 units twice daily, Januvia, metformin as an outpatient. Per pharmacy counseling report from 1 month ago, patient has not had metformin refilled in nearly 1 year, and has 5 unused boxes of her insulin in her refrigerator. Both family members at time of admission confirmed she does not check her sugars or regularly take medications. She is managing medications on her own. Presented with a sugar of 60, received D50 and improved to 129. Continue lower dose of lantus - 10 units BID to start. Novolog SSI. A1C 6.9%. (9) Hypothyroidism: Plan: Continue levothyroxine. TSH 1.1. (10) HTN (hypertension): Plan: Mildly elevated here Cont Toprol, Imdur, Entresto. Adjust meds as needed. Okay to restart home Lasix (11) Hypercalcemia: Plan: Peak total calcium level 11.2, now is 10.3 Intact PTH level sent and was wnl. Has an enlarged lymph node left neck - could be related. Needs f/u. Stop Vit D po and check Vit D level-mildly low 24-would not replace (12) Chronic right-sided congestive heart failure: Plan: LV function has normalized with pacing. Echo 08/19: Normal left ventricular size and function, EF 55 to 60%, no regional WMA, mild LVH. Mildly reduced systolic function of right ventricle, moderate pulmonary hypertension, moderate to severe tricuspid regurg. Holding home Lasix as above due to no p.o. intake today Cont Entresto. Cont beta mauricio. Does not appear decompensated today. (13) Lymphadenopathy: Plan: left neck this will need close f/u (14) DVT prophylaxis: Plan: renurelto Plan spoke with pt's son on the phone on 11/08 PT/OT consults placed and and patient,son are agreeable to rehab as recommended by PT/OT. CM placed referrals Admission and Anticipated Discharge Date Admission Date: November 05, 2022 Subjective Patient is significantly improved today. She is out of bed and ambulating with physical therapy. She is alert and oriented x2. She is eating and drinking. She is agreeable to rehab placement. Remains to dysarthric Telemetry with paced rhythm in the 70s. She does complain of some back pain that was present since prior to lying flat for the MRI today Review of Systems Review of Systems: All systems reviewed & are unremarkable except as noted in HPI & below Physical Exam Constitutional: WD/WN, vitals as above Eyes: + anicteric sclerae Neck: trachea midline, no thyromegaly Respiratory: normal respiratory effort, lungs clear to auscultation Cardiovascular: RRR, no murmur, no edema Chest (Breasts): Chest: normal inspection of chest Gastrointestinal (Abdomen): normal bowel sounds, soft, nontender, no hepatosplenomegaly Musculoskeletal: Extremities: extremities normal to inspection; no cyanosis a nd no clubbing Skin: no rashes, warm and dry Neurologic: CN's II-XI intact bilaterally, moves all extremities and awake; not confused Speech / Cognition: + abnormal speech (Severe dysarthria) Lymphatic: no lymphedema Results & Data Results & Data ([facility]) Vital Signs (Past 12 Hours) Vital Signs Temp Pulse Pulse Resp BP Pulse Ox O2 Del Method 11/08/22 15:53 36.3 C L 64 19 124/64 96 Room Air 11/08/22 11:50 36.8 C 70 19 131/76 93 Room Air 11/08/22 07:47 36.3 C L 70 19 120/75 95 Room Air 11/08/22 07:11 70 Laboratory Results 11/08/22 11/08/22 11/08/22 Range/Units 20:28 16:39 11:29 WBC (4.8-10.8) K/ul RBC (3.93-5.22) M/uL Hgb (12.0-16.0) g/dl Hct (34.1-44.9) % MCV (80.0-100.0) fL MCH (25.0-34.0) pg MCHC (32.0-36.0) g/dL RDW Std Deviation (36.4-46.3) fL RDW Coeff of Luana (11.5-14.5) % Plt Count (130-400) K/uL MPV (9.4-12.3) fL Immature Gran % (Auto) % Neut % (Auto) % Lymph % (Auto) % Hand % (Auto) % Eos % (Auto) % Baso % (Auto) % Neut # (Auto) (1.4-6.5) K/uL Lymph # (Auto) (1.2-3.4) K/uL Hand # (Auto) (0.24-0.82) K/uL Eos # (Auto) (0-0.50) K/uL Baso # (Auto) (0-0.2) K/uL Immature Gran # (Auto) (0.00-0.02) K/uL ESR (0-30) mm/hr Sodium (136-145) mmol/L Potassium (3.5-5.1) mmol/L Chloride (98-107) mmol/L Carbon Dioxide (21-32) mmol/L Anion Gap (3-11) BUN (6-23) mg/dl Creatinine (0.6-1.2) mg/dl Est Cr Clr Drug Dosing ml/min Est GFR ( Amer) ml/min Est GFR (Non-Af Amer) ml/min BUN/Creatinine Ratio (10-20) Glucose (70-99(Fasting)) mg/dl POC Glucose 193 H 164 H 146 H (70-99) mg/dl Calcium (8.5-10.1) mg/dl Magnesium (1.7-2.4) mg/dl Total Bilirubin (0.2-1.0) mg/dl AST (13-39) U/L ALT (7-52) U/L Alkaline Phosphatase (34-104) U/L Total Creatine Kinase (26-192) U/L C-Reactive Protein (0-0.5) mg/dl Total Protein (6.0-8.3) gm/dl Albumin (3.4-5.0) gm/dl Globulin (2.5-4.0) gm/dl Albumin/Globulin Ratio (0.9-2) 25-OH Vitamin D Total (30-100) ng/ml Acetylchol Rcpt Block Ab Acetylchol Rcpt Bind Ab Acetylchol Rcpt Modu Ab Lyme Disease IgG Ab (Negative) Lyme IgG (Western Blot) Lyme IgG 18 kDa Band Lyme IgG 23 kDa Band Lyme IgG 28 kDa Band Lyme IgG 30 kDa Band Lyme IgG 39 kDa Band Lyme IgG 41 kDa Band Lyme IgG 45 kDa Band Lyme IgG 58 kDa Band Lyme IgG 66 kDa Band Lyme IgG 93 kDa Band Lyme IgM Ab (WB) Lyme Disease IgM Ab (Negative) Lyme IgM 23 kDa Band Lyme IgM 39 kDa Band Lyme IgM 41 kDa Band 11/08/22 11/08/22 11/08/22 Range/Units 07:33 06:35 06:35 WBC (4.8-10.8) K/ul RBC (3.93-5.22) M/uL Hgb (12.0-16.0) g/dl Hct (34.1-44.9) % MCV (80.0-100.0) fL MCH (25.0-34.0) pg MCHC (32.0-36.0) g/dL RDW Std Deviation (36.4-46.3) fL RDW Coeff of Luana (11.5-14.5) % Plt Count (130-400) K/uL MPV (9.4-12.3) fL Immature Gran % (Auto) % Neut % (Auto) % Lymph % (Auto) % Hand % (Auto) % Eos % (Auto) % Baso % (Auto) % Neut # (Auto) (1.4-6.5) K/uL Lymph # (Auto) (1.2-3.4) K/uL Hand # (Auto) (0.24-0.82) K/uL Eos # (Auto) (0-0.50) K/uL Baso # (Auto) (0-0.2) K/uL Immature Gran # (Auto) (0.00-0.02) K/uL ESR (0-30) mm/hr Sodium (136-145) mmol/L Potassium (3.5-5.1) mmol/L Chloride (98-107) mmol/L Carbon Dioxide (21-32) mmol/L Anion Gap (3-11) BUN (6-23) mg/dl Creatinine (0.6-1.2) mg/dl Est Cr Clr Drug Dosing ml/min Est GFR ( Amer) ml/min Est GFR (Non-Af Amer) ml/min BUN/Creatinine Ratio (10-20) Glucose (70-99(Fasting)) mg/dl POC Glucose 96 (70-99) mg/dl Calcium (8.5-10.1) mg/dl Magnesium (1.7-2.4) mg/dl Total Bilirubin (0.2-1.0) mg/dl AST (13-39) U/L ALT (7-52) U/L Alkaline Phosphatase (34-104) U/L Total Creatine Kinase (26-192) U/L C-Reactive Protein (0-0.5) mg/dl Total Protein (6.0-8.3) gm/dl Albumin (3.4-5.0) gm/dl Globulin (2.5-4.0) gm/dl Albumin/Globulin Ratio (0.9-2) 25-OH Vitamin D Total 24.4 L (30-100) ng/ml Acetylchol Rcpt Block Ab Acetylchol Rcpt Bind Ab Acetylchol Rcpt Modu Ab Lyme Disease IgG Ab (Negative) Lyme IgG (Western Blot) Pending Lyme IgG 18 kDa Band Pending Lyme IgG 23 kDa Band Pending Lyme IgG 28 kDa Band Pending Lyme IgG 30 kDa Band Pending Lyme IgG 39 kDa Band Pending Lyme IgG 41 kDa Band Pending Lyme IgG 45 kDa Band Pending Lyme IgG 58 kDa Band Pending Lyme IgG 66 kDa Band Pending Lyme IgG 93 kDa Band Pending Lyme IgM Ab (WB) Pending Lyme Disease IgM Ab (Negative) Lyme IgM 23 kDa Band Pending Lyme IgM 39 kDa Band Pending Lyme IgM 41 kDa Band Pending 11/08/22 11/08/22 11/08/22 Range/Units 06:35 06:35 06:35 WBC 9.39 (4.8-10.8) K/ul RBC 5.19 (3.93-5.22) M/uL Hgb 15.6 (12.0-16.0) g/dl Hct 48.0 H (34.1-44.9) % MCV 92.5 (80.0-100.0) fL MCH 30.1 (25.0-34.0) pg MCHC 32.5 (32.0-36.0) g/dL RDW Std Deviation 46.6 H (36.4-46.3) fL RDW Coeff of Luana 13.7 (11.5-14.5) % Plt Count 175 (130-400) K/uL MPV 11.2 (9.4-12.3) fL Immature Gran % (Auto) 0.4 % Neut % (Auto) 63.5 % Lymph % (Auto) 27.7 % Hand % (Auto) 6.0 % Eos % (Auto) 2.1 % Baso % (Auto) 0.3 % Neut # (Auto) 5.96 (1.4-6.5) K/uL Lymph # (Auto) 2.60 (1.2-3.4) K/uL Hand # (Auto) 0.56 (0.24-0.82) K/uL Eos # (Auto) 0.20 (0-0.50) K/uL Baso # (Auto) 0.03 (0-0.2) K/uL Immature Gran # (Auto) 0.04 H (0.00-0.02) K/uL ESR 24 (0-30) mm/hr Sodium (136-145) mmol/L Potassium (3.5-5.1) mmol/L Chloride (98-107) mmol/L Carbon Dioxide (21-32) mmol/L Anion Gap (3-11) BUN (6-23) mg/dl Creatinine (0.6-1.2) mg/dl Est Cr Clr Drug Dosing ml/min Est GFR ( Amer) ml/min Est GFR (Non-Af Amer) ml/min BUN/Creatinine Ratio (10-20) Glucose (70-99(Fasting)) mg/dl POC Glucose (70-99) mg/dl Calcium (8.5-10.1) mg/dl Magnesium (1.7-2.4) mg/dl Total Bilirubin (0.2-1.0) mg/dl AST (13-39) U/L ALT (7-52) U/L Alkaline Phosphatase (34-104) U/L Total Creatine Kinase (26-192) U/L C-Reactive Protein (0-0.5) mg/dl Total Protein (6.0-8.3) gm/dl Albumin (3.4-5.0) gm/dl Globulin (2.5-4.0) gm/dl Albumin/Globulin Ratio (0.9-2) 25-OH Vitamin D Total (30-100) ng/ml Acetylchol Rcpt Block Ab Acetylchol Rcpt Bind Ab Acetylchol Rcpt Modu Ab Lyme Disease IgG Ab Positive A (Negative) Lyme IgG (Western Blot) Lyme IgG 18 kDa Band Lyme IgG 23 kDa Band Lyme IgG 28 kDa Band Lyme IgG 30 kDa Band Lyme IgG 39 kDa Band Lyme IgG 41 kDa Band Lyme IgG 45 kDa Band Lyme IgG 58 kDa Band Lyme IgG 66 kDa Band Lyme IgG 93 kDa Band Lyme IgM Ab (WB) Lyme Disease IgM Ab Negative (Negative) Lyme IgM 23 kDa Band Lyme IgM 39 kDa Band Lyme IgM 41 kDa Band 11/08/22 11/08/22 Range/Units 06:35 06:35 WBC (4.8-10.8) K/ul RBC (3.93-5.22) M/uL Hgb (12.0-16.0) g/dl Hct (34.1-44.9) % MCV (80.0-100.0) fL MCH (25.0-34.0) pg MCHC (32.0-36.0) g/dL RDW Std Deviation (36.4-46.3) fL RDW Coeff of Luana (11.5-14.5) % Plt Count (130-400) K/uL MPV (9.4-12.3) fL Immature Gran % (Auto) % Neut % (Auto) % Lymph % (Auto) % Hand % (Auto) % Eos % (Auto) % Baso % (Auto) % Neut # (Auto) (1.4-6.5) K/uL Lymph # (Auto) (1.2-3.4) K/uL Hand # (Auto) (0.24-0.82) K/uL Eos # (Auto) (0-0.50) K/uL Baso # (Auto) (0-0.2) K/uL Immature Gran # (Auto) (0.00-0.02) K/uL ESR (0-30) mm/hr Sodium 143 (136-145) mmol/L Potassium 3.8 (3.5-5.1) mmol/L Chloride 107 (98-107) mmol/L Carbon Dioxide 28 (21-32) mmol/L Anion Gap 8 (3-11) BUN 25 H (6-23) mg/dl Creatinine 0.90 (0.6-1.2) mg/dl Est Cr Clr Drug Dosing 46.3 ml/min Est GFR ( Amer) 68.5 ml/min Est GFR (Non-Af Amer) 59.1 ml/min BUN/Creatinine Ratio 27.8 H (10-20) Glucose 104 H (70-99(Fasting)) mg/dl POC Glucose (70-99) mg/dl Calcium 10.3 H (8.5-10.1) mg/dl Magnesium 1.7 (1.7-2.4) mg/dl Total Bilirubin 1.9 H (0.2-1.0) mg/dl AST 16 (13-39) U/L ALT 15 (7-52) U/L Alkaline Phosphatase 105 H (34-104) U/L Total Creatine Kinase 94 (26-192) U/L C-Reactive Protein 0.84 H (0-0.5) mg/dl Total Protein 6.5 (6.0-8.3) gm/dl Albumin 3.9 (3.4-5.0) gm/dl Globulin 2.6 (2.5-4.0) gm/dl Albumin/Globulin Ratio 1.5 (0.9-2) 25-OH Vitamin D Total (30-100) ng/ml Acetylchol Rcpt Block Ab Pending Acetylchol Rcpt Bind Ab Pending Acetylchol Rcpt Modu Ab Pending Lyme Disease IgG Ab (Negative) Lyme IgG (Western Blot) Lyme IgG 18 kDa Band Lyme IgG 23 kDa Band Lyme IgG 28 kDa Band Lyme IgG 30 kDa Band Lyme IgG 39 kDa Band Lyme IgG 41 kDa Band Lyme IgG 45 kDa Band Lyme IgG 58 kDa Band Lyme IgG 66 kDa Band Lyme IgG 93 kDa Band Lyme IgM Ab (WB) Lyme Disease IgM Ab (Negative) Lyme IgM 23 kDa Band Lyme IgM 39 kDa Band Lyme IgM 41 kDa Band Diagnostic Findings Cervical Spine MRI 11/08/22 00:00 CLINICAL HISTORY: falls TECHNIQUE: MRI of the cervical spine is performed utilizing various T1 and T2 sequences in the axial and sagittal planes. IV contrast was not administered for this examination. Comparison: Comparison is made to CT soft tissue neck 04/09/2008 FINDINGS: Extensive kyphosis is seen. Mild disc disease is seen throughout the cervical spine without significant canal stenosis. There is mild right and moderate left neural foraminal stenosis at C3-C4, as well as moderate bilateral neural foraminal stenosis at C4-C5 and C5-C6. The spinal ligaments are intact, without evidence of disruption or abnormal signal intensity. The spinal cord is normal in signal intensity and there is no evidence of cord edema. There is no evidence of an extradural, intradural, extramedullary or intramedullary lesion. Visualized soft tissues are normal. Visualized brain parenchyma is normal. IMPRESSION: Multilevel degenerative changes with up to moderate bilateral neuroforaminal stenosis and no significant canal stenosis. Exaggerated kyphosis is noted, increased from prior exam in 2007. ACT 112: Negative or not required by law. Electronically signed by: Papo Stapleton M.D. 11/08/2022 8:53 PM PG Care Time/CCT Total # of Minutes Spent Total Time Spent with Patient: Total time spent is greater than 50% in coordination of care (as documented) at patient's floor/unit and/or counseling patient: Coding Level of Care Code 53341 SUB INP/OBS CARE 3/50MIN Diagnoses Dysarthria R47.1 Cerebrovascular disease I67.9 Multiple falls R29.6 Hypoglycemia E16.2 Atrial fibrillation with rapid ventricular response I48.91 CAD in augustine artery I25.10 Chronic kidney disease (CKD), stage III (moderate) N18.3 Diabetes mellitus type 2 with complications E11.8 Hypothyroidism E03.9 HTN (hypertension) I10 Hypercalcemia E83.52 Chronic right-sided congestive heart failure I50.812 Lymphadenopathy R59.1 DVT prophylaxis Z29.9
--- NOTE | 2022-11-08 20:55 | Magnetic Resonance Report ---
CLINICAL HISTORY: falls TECHNIQUE: MRI of the cervical spine is performed utilizing various T1 and T2 sequences in the axial and sagittal planes. IV contrast was not administered for this examination. Comparison: Comparison is made to CT soft tissue neck 04/09/2008 FINDINGS: Extensive kyphosis is seen. Mild disc disease is seen throughout the cervical spine without significant canal stenosis. There is mild right and moderate left neural foraminal stenosis at C3-C4, as well as moderate bilateral neural foraminal stenosis at C4-C5 and C5-C6. The spinal ligaments are intact, without evidence of disruption or abnormal signal intensity. The spi nal cord is normal in signal intensity and there is no evidence of cord edema. There is no evidence o f an extradural, intradural, extramedullary or intramedullary lesion. Visualized soft tissues are nor mal. Visualized brain parenchyma is normal. IMPRESSION: Multilevel degenerative changes with up to moderate bilateral neuroforaminal stenosis and no signific ant canal stenosis. Exaggerated kyphosis is noted, increased from prior exam in 2007. ACT 112: Negative or not required by law. Electronically signed by: Papo Stapleton M.D. 11/08/2022 8:53 PM
[2022-11-08] MEDS: ATORVASTATIN 40 MG TAB PO SCH (21:43)
[2022-11-08] MEDS: POTASSIUM CHLORIDE CRTAB 20 MEQ TABCR PO SCH (21:44)
[2022-11-09] MEDS: LEVOTHYROXINE SODIUM 50 MCG TABLET PO SCH (05:35)
[2022-11-09] MEDS: INSULIN ASPART PER UNIT SC SCH ×4 (08:52→21:08)
[2022-11-09] MEDS: LANTUS PER UNIT CHARGE SQ SCH ×2 (08:52→21:08)
[2022-11-09] MEDS: CYANOCOBALAMIN (B-12) 500 MCG TABLET PO SCH (08:55)
[2022-11-09] MEDS: METOPROLOL SUCC 50MG EXT REL TAB PO SCH (08:56)
[2022-11-09] MEDS: RIVAROXABAN 20 MG TAB PO SCH (08:56)
[2022-11-09] MEDS: ISOSORBIDE MONO EXTENDED REL 30 MG TABCR PO SCH (08:56)
[2022-11-09] MEDS: MAGNESIUM OXIDE 400 MG TAB PO SCH (08:56)
[2022-11-09] MEDS: VALSARTAN/SACUBITRIL 26/24MG TAB PO SCH ×2 (08:57→21:07)
[2022-11-09] MEDS: POTASSIUM CHLORIDE CRTAB 20 MEQ TABCR PO SCH ×2 (09:00→21:18)
[2022-11-09] MEDS: ACETAMINOPHEN 325 MG TAB PO PRN (09:18)
[2022-11-09] MEDS: FUROSEMIDE 40 MG TAB PO SCH ×2 (11:14→16:16)
--- NOTE | 2022-11-09 12:54 | Hospitalist Progress Note ---
Date of Service November 09, 2022 Assessment & Plan (1) Dysarthria: Plan: SEVERE. Outpatient neurology clinic note from 02/2022 references it had been present at least 1 year at that time. Thus, present and progressive for 18+ months. MRI brain, EMG/NCV of bilateral lower extremities, video swallow, and post of lab tests were all ordered at that time but never completed The dysarthria, weakness of all limbs, numerous falls, muscle atrophy, etc - all concerning for a neurodegenerative disorder. Recurrent CVAs a possibility given her chronic a.fib but she is on anticoagulation. Then, with behavior disturbance overnight on 11/06-possible hospital delirium? Here, CPK, B12, ESR, CRP, TSH, ammonia all wnl (B12 low-normal, but this does not explain her symptoms/signs). B12 deficiency could explain her previous complaint from neurology outpatient visit of neuropathic type pain in the feet MRI brain w/ and w/o contrast with severe cerebrovascular disease as per neurology interpretation but unchanged from previous. 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 Unfortunately, not much can be done for this -Check myasthenia gravis antibody panel-pending and will need follow-up after discharge - Lyme titer with positive IgG, negative IgM--has had previous positive infection-this is likely indicative of old disease. Follow Western blot - ESR, CRP normal for age -Replacing vitamin B12 -PT/OT/speech therapy all consulted (2) Cerebrovascular disease: Plan: Vascular dementia with behavior disturbance and ambulatory dysfunction-behavior disturbance now completely resolved Had significant agitation overnight on 11/06-10/2009 requiring IM Zyprexa and restraints Then with lethargy throughout the day on 11/07 secondary to Zyprexa Completely resolved behavior disturbance on 11/08 No evidence for infection anywhere Was given 1 L normal saline to hydrate well not taking p.o. now is eating and drinking without difficulty Likely hospital delirium in the setting of underlying Binswanger's (3) Multiple falls: Plan: Most likely secondary to Binswanger's as above given severe cerebrovascular disease seen on brain MRI. No new stroke found but has multiple old strokes pacer interrogation performed and does show some issues with oversensing of the T wave causing the pacer to malfunction and she had some episodes of bradycardia into the 40s on telemetry here but seems asymptomatic. Pacer malfunction has been corrected by the [employer] dental detail representative can't exclude episodes of hypoglycemia as she does not check her blood sugars at home but continues to give herself insulin arthritis of major joints of LEs could also enhance fall risk as well as neuropathy of the feet and B12 deficiency Brain MRI and lumbar spine MRI as above -Checking cervical spine MRI-negative for significant disease -Continue to replace B12 -Other work-up as above -PT/OT recommending rehab (4) Hypoglycemia: Plan: Presenting glucose of 60 No hypoglycemia since then Insulins continued albeit at lower dose (5) Atrial fibrillation with rapid ventricular response: Plan: S/p ablation by Dr Ivan Humphreys in the past. Pacing on monitor. Continue Xarelto, metoprolol She is on the borderline of needing renally dosed Xarelto-recommending following this closely as an outpatient reduced to 15 mg daily if needed (6) CAD in [place] artery: Plan: No evidence of ACS. No ischemic symptoms. Continue statin, Imdur, metoprolol, Entresto, Xarelto (7) Chronic kidney disease (CKD), stage III (moderate): Plan: stage 3a Creatinine stable -Avoid nephrotoxins -renally dose meds when appropriate (8) Diabetes mellitus type 2 with complications: Plan: Patient is on Toujeo 20 units twice daily, Januvia, metformin as an outpatient. Per pharmacy counseling report from 1 month ago, patient has not had metformin refilled in nearly 1 year, and has 5 unused boxes of her insulin in her refrigerator. Both family members at time of admission confirmed she does not check her sugars or regularly take medications. She is managing medications on her own. Presented with a sugar of 60, received D50 and improved to 129. Continue lower dose of lantus - 10 units BID Novolog SSI. A1C 6.9%. (9) Hypothyroidism: Plan: Continue levothyroxine. TSH 1.1. (10) HTN (hypertension): Plan: Mildly elevated here Cont Toprol, Imdur, Entresto. Adjust meds as needed. Continue home Lasix (11) Hypercalcemia: Plan: Peak total calcium level 11.2, now is 10.3 Intact PTH level sent and was wnl. Has an enlarged lymph node left neck - could be related. Needs f/u. Stop Vit D po and check Vit D level-mildly low 24-would not replace (12) Chronic right-sided congestive heart failure: Plan: LV function has normalized with pacing. Echo 08/19: Normal left ventricular size and function, EF 55 to 60%, no regional WMA, mild LVH. Mildly reduced systolic function of right ventricle, moderate pulmonary hypertension, moderate to severe tricuspid regurg. Restart home Lasix 40 Mg twice daily Cont Entresto. Cont beta mauricio. Does not appear decompensated today. (13) Lymphadenopathy: Plan: left neck this will need close f/u (14) DVT prophylaxis: Plan: herlinda Plan spoke with pt's son on the phone on 11/08 PT/OT consults placed and and patient,son are agreeable to rehab as recommended by PT/OT. CM placed referrals-pending placement. Medically stable Admission and Anticipated Discharge Date Admission Date: November 05, 2022 Subjective Patient reports feeling better. She is eating, out of bed with assistance. Agr eeable to rehab. Has concerns about marital issues. Review of Systems Review of Systems: All systems reviewed & are unremarkable except as noted in HPI & below Physical Exam Constitutional: WD/WN, vitals as above Eyes: + anicteric sclerae Neck: trachea midline, no thyromegaly Respiratory: normal respiratory effort, lungs clear to auscultation Cardiovascular: RRR, no murmur, no edema Chest (Breasts): Chest: normal inspection of chest Gastrointestinal (Abdomen): normal bowel sounds, soft, nontender, no hepatosplenomegaly Musculoskeletal: Extremities: extremities normal to inspection; no cyanosis and no clubbing Skin: no rashes, warm and dry Neurologic: CN's II-XI intact bilaterally, moves all extremities and awake; not confused Speech / Cognition: + abnormal speech (Severe dysarthria) Lymphatic: no lymphedema Results & Data Results & Data ([facility]) Vital Signs (Past 12 Hours) Vital Signs Temp Pulse Pulse Resp BP BP Pulse Ox 11/09/22 08:00 70 11/09/22 11:44 36.3 C L 70 18 95/58 L 92 11/09/22 07:48 36.5 C 75 19 150/87 H 93 01/12/23 03:44 70 11/09/22 03:27 36.6 C 70 18 118/72 92 O2 Del Method 11/09/22 08:00 11/09/22 11:44 Room Air 11/09/22 07:48 Room Air 11/09/22 03:44 11/09/22 03:27 Room Air PG Care Time/CCT Total # of Minutes Spent Total Time Spent with Patient: Total time spent is greater than 50% in coordination of care (as documented) at patient's floor/unit and/or counseling patient: Coding Level of Care Code 71072 SUB INP/OBS CARE 11/22MIN Diagnoses Dysarthria R47.1 Cerebrovascular disease I67.9 Multiple falls R29.6 Hypoglycemia E16.2 Atrial fibrillation with rapid ventricular response I48.91 CAD in [place] artery I25.10 Chronic kidney disease (CKD), stage III (moderate) N18.3 Diabetes mellitus type 2 with complications E11.8 Hypothyroidism E03.9 HTN (hypertension) I10 Hypercalcemia E83.52 Chronic right-sided congestive heart failure I50.812 Lymphadenopathy R59.1 DVT prophylaxis Z29.9
[2022-11-09] MEDS: ASPIRIN 81 MG ECTAB PO SCH (13:43)
[2022-11-09] MEDS: ATORVASTATIN 40 MG TAB PO SCH (21:06)
[2022-11-10] MEDS: LEVOTHYROXINE SODIUM 50 MCG TABLET PO SCH (05:36)
[2022-11-10 07:21] LABS: Creatinine Clr Calc Pharmacy 34.3 ml/min; Est GFR (African American) 47.4 ml/min; Est GFR (Non-African American) 40.9 ml/min
[2022-11-10] MEDS: ISOSORBIDE MONO EXTENDED REL 30 MG TABCR PO SCH (08:53)
[2022-11-10] MEDS: RIVAROXABAN 20 MG TAB PO SCH (08:53)
[2022-11-10] MEDS: METOPROLOL SUCC 50MG EXT REL TAB PO SCH (08:53)
[2022-11-10] MEDS: FUROSEMIDE 40 MG TAB PO SCH (08:53)
[2022-11-10] MEDS: VALSARTAN/SACUBITRIL 26/24MG TAB PO SCH ×2 (08:53→19:49)
[2022-11-10] MEDS: ASPIRIN 81 MG ECTAB PO SCH (08:54)
[2022-11-10] MEDS: CYANOCOBALAMIN (B-12) 500 MCG TABLET PO SCH (08:54)
[2022-11-10] MEDS: MAGNESIUM OXIDE 400 MG TAB PO SCH (08:54)
[2022-11-10] MEDS: ACETAMINOPHEN 325 MG TAB PO PRN (08:59)
[2022-11-10] MEDS: LANTUS PER UNIT CHARGE SQ SCH ×2 (08:59→19:56)
[2022-11-10] MEDS: INSULIN ASPART PER UNIT SC SCH ×4 (08:59→19:57)
[2022-11-10] MEDS: POTASSIUM CHLORIDE CRTAB 20 MEQ TABCR PO SCH ×2 (08:59→19:56)
[2022-11-10 13:07] LABS: 18KDIGG Band REACTIVE; 23KDIGG Band REACTIVE; 23KDIGM Band NON-REACTIVE; 28KDIGG Band NON-REACTIVE; 30KDIGG Band NON-REACTIVE; 39KDIGG Band NON-REACTIVE; 39KDIGM Band NON-REACTIVE; 41KDIGG Band REACTIVE; 41KDIGM Band NON-REACTIVE; 45KDIGG Band NON-REACTIVE; 58KDIGG Band REACTIVE; 66KDIGG Band NON-REACTIVE; 93KDIGG Band REACTIVE; Lyme Antibodies, WB IgG POSITIVE (NEGATIVE); Lyme Antibodies, WB IgM NEGATIVE (NEGATIVE)
--- NOTE | 2022-11-10 13:29 | Pharmacy Report ---
Pharmacy Glycemic Short Note 2 - Date of Service November 10, 2022 - Glycemic Short BSG Results (Last 24 hours): 11/09/22 11/09/22 11/10/22 16:36 20:34 07:53 POC Glucose 196 H 203 H 155 H 11/10/22 11:28 POC Glucose 190 H OUTPATIENT ANTIDIABETIC REGIMEN: * Toujeo 20 units SQ BID * Metformin 500mg PO BID * Januvia 50mg PO daily * HbA1c: 6.9% (11/06/22) ASSESSMENT: 11/10/22: * Fasting higher today, will continue same today, consider dosage increase if continues to trend up * Prandial BSGs improved yesterday with tighter carb ratio- will continue same today 11/08/22: * BSGs are much improved today since resuming Lantus yesterday. * Patient has not been eating. * No changes indicated for today. Continue conservative management in the setting of recent hypoglycemia and minimal PO intake. 11/06 * Ms Luke is an 82yo diabetic F admitted for weakness/falls. * It is reported that pt is noncompliant with SMBG and medication use. * Pt was hypoglycemic on admission (BSG 60mg/dL). Following administration of dextrose, BSGs tina to >400mg/dL. BSGs have since resolved. * Dextrose removed from IVF this morning. * Pt received slightly less insulin with breakfast than was indicated. "Pre- lunch" BSG was obtained after patient had eaten part of her lunch. * Will hold off on adding basal insulin at this time. PLAN FOR INPATIENT GLYCEMIC CONTROL: * Hold outpatient oral diabetes medications * Basal insulin * Lantus 10 units SQ BID * Bolus insulin * NovoLog per scale ACHS or Q6hrs while NPO * Goal Range: Low 120 mg/dL - High 150 mg/dL * Correction Factor: 25 mg/dL/unit * Nutritional / Prandial insulin per carb ratio of 1 unit per 7 grams CHO consumed
--- NOTE | 2022-11-10 15:41 | Discharge Summary ---
Date of Service November 10, 2022 Admission HPI Per Admitting Provider Marylou Luke is an 82-year-old female with past medical history of CAD, HFpEF, cardiomyopathy s/o BiV ICD, A. fib s/p ablation, pulmonary hypertension, hypercholesterolemia, DM2, and hypothyroidism who is presenting today for weakness and falls at home. She is reportedly had at least 8 falls in the past several weeks and has not able to ambulate her home, she does not have any assistance at home. She is a diabetic but refuses to check her sugar and is often noncompliant with her insulin and other diabetic medications. Her was concerned today when she did not want to do typical activities for her, such as sueding machine tender and coming down to the first floor. All she wanted to do was sleep. According to him, patient is very active and does laundry, dishes, and can ambulate up and down the stairs. Her daughter, who is also at bedside reports that the patient has fallen at least 8 times in the past several weeks, ambulates very poorly, and she is at great risk for falls. She also reports behavior changes of the past few months, stating that she has sudden fits of rage and will try to harm her or others around her with her cane. Patient's bedroom is on the second floor of their home, and although there is a bedroom on the first floor she refused to move down to it. The patient's daughter is very concerned for patient's overall safety. The patient herself offers no complaints and just says that she feels very tired because of old age. On presentation, vital signs within normal limits, stable. Lab work notable for glucose of 60, calcium 11.2, T bili 1.6, troponin 14.3. Patient without any leukocytosis, anemia, electrolyte abnormality, impaired renal function and hepatic function. CXR and head CT unremarkable, lumbar spine CT without fracture, but there is mild paravertebral edema at L2-L3 dissipates which is progressed from prior imaging. There is no evidence of erosive changes to suggest discitis or osteomyelitis. Principal Diagnosis Recurrent falls, hypoglycemia, B12 deficiency, Binswanger's disease Discharge Exam Constitutional WD/WN, vitals as above Eyes + anicteric sclerae Neck trachea midline, no thyromegaly Respiratory normal respiratory effort, lungs clear to auscultation Cardiovascular RRR, no murmur, no edema Chest (Breasts) Chest: normal inspection of chest Gastrointestinal (Abdomen) normal bowel sounds, soft, nontender, no hepatosplenomegaly Musculoskeletal Extremities: extremities normal to inspection; no cyanosis and no clubbing Skin no rashes, warm and dry Neurologic CN's II-XI intact bilaterally, moves all extremities and awake; not confused Speech / Cognition: + abnormal speech (Severe dysarthria) Lymphatic no lymphedema Discharge Data Allergies Allergy/AdvReac Type Severity Reaction Status Date / Time Penicillins Allergy Severe RASH,SWELLI Verified 09/19/22 13:14 NG Consultations 11/05/22 14:46 ED Decision to Admit Stat 11/06/22 19:39 Consult Neurology Routine Ordered Studies 11/05/22 13:01 CT head/brain wo con Stat CT lumbar spine wo con Stat 11/07/22 14:20 MR lumbar spine wo/w con Routine 11/07/22 19:30 MR brain wo/w con Routine 11/08/22 00:00 MR cervical spine wo con Routine Hospital Course (1) Multiple falls: Most likely secondary to Binswanger's, hypoglycemia, and B12 deficiency. Possibly also bradycardia contributing. With severe cerebrovascular disease seen on brain MRI. No new stroke found but has multiple old strokes pacer interrogation performed and does show some issues with oversensing of the T wave causing the pacer to malfunction and she had some episodes of bradycardia into the 40s on telemetry here but seems asymptomatic. Pacer malfunction has been corrected by the [employer] sales donor recruitment representative and had no further bradycardia She never checks her blood sugar and continues to give herself injections of insulin. She very well could be having episodes of hypoglycemia contributing to falls. Asked the clinical staff educator to talk with her about other options to pay for continuous glucose monitoring as she is interested in this and her insurance would not cover it. Also with arthritis of major joints of LEs could also enhance fall risk as well as neuropathy of the feet and B12 deficiency Brain MRI and lumbar spine MRI performed, cervical spine MRI-spinal MRIs without significant findings. Brain MRI with severe cerebrovascular disease and multiple old lacunar infarcts -Encouraged her to check her blood sugars and lowered the dose of her insulin to 12 units twice daily on discharge of [facility] -Continue to replace B12 -Initially was gone to go to rehab, but improved so much throughout her stay that she was actually able to do when more here than what she is done at home in a very long time including going up and down 12 steps independently. -Starting aspirin 81 mg daily for history of stroke -We will go home with home health/PT/OT (2) Dysarthria: SEVERE. Outpatient neurology clinic note from 02/2022 references it had been present at least 1 year at that time. Thus, present and progressive for 18+ months. MRI brain, EMG/NCV of bilateral lower extremities, video swallow, and post of lab tests were all ordered at that time but never completed The dysarthria, weakness of all limbs, numerous falls, muscle atrophy, etc - all concerning for a neurodegenerative disorder. Recurrent CVAs a possibility given her chronic a.fib but she is on anticoagulation. Then, with behavior disturbance overnight on 11/06-possible hospital delirium? Here, CPK, B12, ESR, CRP, TSH, ammonia all wnl (B12 low-normal, but this does not explain her symptoms/signs). B12 deficiency could explain her previous complaint from neurology outpatient visit of neuropathic type pain in the feet MRI brain w/ and w/o contrast with severe cerebrovascular disease as per neurology interpretation but unchanged from previous. 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 Unfortunately, not much can be done for this -Check myasthenia gravis antibody panel-pending and will need follow-up after discharge - Lyme titer with positive IgG, negative IgM--has had previous positive infection-this is likely indicative of old disease. Follow Western blot but doubtful of new infection and no need for treatment at this time - ESR, CRP normal for age -Replacing vitamin B12 -PT/OT/speech therapy all consulted and could benefit from outpatient speech therapy (3) Cerebrovascular disease: Vascular dementia with behavior disturbance and ambulatory dysfunction-behavior disturbance now completely resolved Had significant agitation overnight on 11/06-10/2009 requiring IM Zyprexa and restraints Then with lethargy throughout the day on 11/07 secondary to Zyprexa Completely resolved behavior disturbance on 11/08 No evidence for infection anywhere Was given 1 L normal saline to hydrate well not taking p.o. now is eating and drinking without difficulty Likely hospital delirium in the setting of underlying Binswanger's (4) Hypoglycemia: Presenting glucose of 60 No hypoglycemia since then Insulins continued albeit at lower dose as above lowering home doses on discharge as she does not check her blood sugars Hemoglobin A1c is significantly lower now than it was just 2 months ago indicating likely low blood sugars at home (5) Atrial fibrillation with rapid ventricular response: S/p ablation by Dr Ivan Humphreys in the past. Pacing on monitor. Continue Xarelto but lowered the dose to 15 mg daily due to renal function Continue home metoprolol (6) CAD in [place] artery: No evidence of ACS. No ischemic symptoms. Continue statin, Imdur, metoprolol, Entresto, Xarelto (7) Chronic kidney disease (CKD), stage III (moderate): stage 3a Creatinine stable -Avoid nephrotoxins -renally dose meds when appropriate (8) Diabetes mellitus type 2 with complications: Patient is on Toujeo 20 units twice daily, Januvia, metformin as an outpatient. Per pharmacy counseling report from 1 month ago, patient has not had metformin refilled in nearly 1 year, and has 5 unused boxes of her insulin in her refrigerator. Both family members at time of admission confirmed she does not check her sugars or regularly take medications. She is managing medications on her own. Presented with a sugar of 60, received D50 and improved to 129. A1C 6.9% as above and hypoglycemia, much lower than it had been in the past, suspect episodes of hypoglycemia at home Lower Toujeo to 12 units twice daily on discharge, continue Januvia and metformin Encouraged her to check her blood sugars hospice educator will give her information on buying a continuous glucose monitor out right as an outpatient (9) Hypothyroidism: Continue levothyroxine. TSH 1.1. (10) HTN (hypertension): Mildly elevated here Cont Toprol, Imdur, Entresto. Adjust meds as needed. Continue home Lasix (11) Hypercalcemia: Peak total calcium level 11.2, now is 10.3 Intact PTH level sent and was wnl. Has an enlarged lymph node left neck - could be related. Needs f/u. Stop Vit D po and check Vit D level-mildly low 24-would not replace given hypercalcemia Follow-up as an outpatient (12) Chronic right-sided congestive heart failure: LV function has normalized with pacing. Echo 08/19: Normal left ventricular size and function, EF 55 to 60%, no regional WMA, mild LVH. Mildly reduced systolic function of right ventricle, moderate pulmonary hypertension, moderate to severe tricuspid regurg. Continue home Lasix 40 Mg twice daily Cont Entresto. Cont beta mauricio. Does not appear decompensated today. (13) Lymphadenopathy: left neck this will need close f/u as an outpatient (14) DVT prophylaxis: xarelto Plan Discussed her care with multiple family members at the bedside on the day of discharge Disposition-stable for discharge to home with home health Total Time Total Time Spent Total Time Spent (In Minutes): 40 minutes Discharge Plan Discharge Items Patient Disposition: Home - Home Health Services Reason For Visit: WEAKNESS, FALLS AT HOME Discharge Diagnosis: Recurrent falls, low blood sugar, old strokes, Vitamin B12 deficiency Condition on Discharge: Fair Activity: As commented below Bathing: No limitations Exercise/Sports: Gradually increase as tolerated Exercise Comment: with home PT/OT Non-emergency contact: Primary Care Provider Call non-emergency contact if: you have any medication questions and your symptoms worsen Follow-up/Referrals: Rip Lui MD [Physician] - (Please follow-up within 2 to 3 weeks.) Chaz Borges III, CRNP [Primary Care Provider] - (Follow up within 1 week.) Diet: Carb Consistent or DM2 and Low Sodium (2gm) Fluids: 1800ml (7 cups) Addtl Attending Provider Instructions: You were admitted with multiple falls. This could be due to your low blood sugars. Is very important that you check your blood sugar at least once or twice a day to make sure it is not going too low. I have lowered your insulin down to 12 units twice a day to help keep this from happening again. You also have evidence of old strokes on your brain MRI which could be contributing to your falls and your speech difficulties. You should start taking an aspirin each day to help prevent future strokes. Your Xarelto dose was lowered to 15 mg due to your current level of kidney function. You were also found to have a deficiency in vitamin B12 and should start taking a B12 supplement. This can also contribute to neuropathy of the feet which can lead to falls. Please follow-up with the neurologist to have an EMG/nerve conduction study as an outpatient. Pending Studies at Discharge: Yes Studies:: Myasthenia gravis labs, Lyme disease Western blot Stand-Alone Forms: [facility], Smoking Cessation Medications and DC Order Prescriptions: New aspirin 81 mg Tablet,Delayed Release (Dr/Ec) 81 mg PO QAM Qty: 30 0RF Xarelto 15 mg Tablet 15 mg PO DAILY Qty: 30 5RF cyanocobalamin (vitamin B-12) 1,000 mcg capsule 1,000 mcg PO DAILY Qty: 30 0RF Rx Instructions: Kvak-jse-eozhxdt Continued atorvastatin 40 mg tablet 40 mg PO HS Qty: 90 3RF levothyroxine 50 mcg tablet 50 mcg PO DAILY Qty: 90 1RF (DME) Wheeled Walker Misc See Rx Instructions .Route Qty: 1 0RF Rx Instructions: rollator walker with seat & hand brakes on it Entresto 24-26 mg tablet 1 tab PO BID Qty: 180 3RF isosorbide mononitrate 30 mg tablet extended release 24 hr 30 mg PO DAILY Qty: 90 1RF sitagliptin phosphate 50 mg tablet 50 mg PO DAILY Qty: 90 1RF metoprolol succinate 100 mg tablet extended release 24 hr 100 mg PO DAILY Qty: 90 3RF metformin 500 mg tablet 500 mg PO BID Qty: 180 1RF Rx Instructions: for blood sugars potassium chloride 20 mEq Tablet Extended Release 20 meq PO BID furosemide [Lasix] 40 mg tablet 40 mg PO BID Changed Toujeo SoloStar U-300 Insulin 300 unit/mL (1.5 mL) insulin pen 12 unit subcut BID Qty: 1.5 0RF Discontinued rivaroxaban 20 mg tablet 20 mg PO DAILY Qty: 90 1RF cholecalciferol (vitamin D3) 2,000 unit tablet 2,000 units PO DAILY Discharge Orders: Discharge Order (Routine); Ordered 11/10/22 Ordered By: Felicia Archer Admission Data Admit Date/Time: 11/05/22 15:22 Attending Provider: Felicia Archer Admit Provider: Edd Rodrigues Primary Care Provider: Chaz Borges III Other Providers: Edd Rodrigues ; Rip Lui ; [place],[facility] ; [facility] ; [facility] Coding Level of Care Code HOSP INP/OBS DISCH >30 MIN Diagnoses Multiple falls R29.6 Dysarthria R47.1 Cerebrovascular disease I67.9 Hypoglycemia E16.2 Atrial fibrillation with rapid ventricular response I48.91 CAD in [place] artery I25.10 Chronic kidney disease (CKD), stage III (moderate) N18.3 Diabetes mellitus type 2 with complications E11.8 Hypothyroidism E03.9 HTN (hypertension) I10 Hypercalcemia E83.52 Chronic right-sided congestive heart failure I50.812 Lymphadenopathy R59.1 DVT prophylaxis Z29.9
--- NOTE | 2022-11-10 16:51 | Hospitalist Progress Note ---
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 Possibly also bradycardia contributing. With severe cerebrovascular disease seen on brain MRI. No new stroke found but has multiple old strokes pacer interrogation performed and does show some issues with oversensing of the T wave causing the pacer to malfunction and she had some episodes of bradycardia into the 40s on telemetry here but seems asymptomatic. Pacer malfunction has been corrected by the [employer] bilingual call center representative and had no further bradycardia She never checks her blood sugar and continues to give herself injections of insulin. She very well could be having episodes of hypoglycemia contributing to falls. Asked the tobacco educator to talk with her about other options to pay for continuous glucose monitoring as she is interested in this and her insurance would not cover it. Also with arthritis of major joints of LEs could also enhance fall risk as well as neuropathy of the feet and B12 deficiency Brain MRI and lumbar spine MRI performed, cervical spine MRI-spinal MRIs without significant findings. Brain MRI with severe cerebrovascular disease and multiple old lacunar infarcts -Encouraged her to check her blood sugars and lowered the dose of her insulin to 12 units twice daily on discharge of [facility] -Continue to replace B12 -Initially was gone to go to rehab, but improved so much throughout her stay that she was actually able to do when more here than what she is done at home in a very long time including going up and down 12 steps independently. -Starting aspirin 81 mg daily for history of stroke -Will go home with home health/PT/OT when medically stable after confusion resolves (2) Dysarthria: Plan: SEVERE. Outpatient neurology clinic note from 02/2022 references it had been present at least 1 year at that time. Thus, present and progressive for 18+ months. MRI brain, EMG/NCV of bilateral lower extremities, video swallow, and post of lab tests were all ordered at that time but never completed The dysarthria, weakness of all limbs, numerous falls, muscle atrophy, etc - all concerning for a neurodegenerative disorder. Recurrent CVAs a possibility given her chronic a.fib but she is on anticoagulation. Then, with behavior disturbance overnight on 11/06-possible hospital delirium? Here, CPK, B12, ESR, CRP, TSH, ammonia all wnl (B12 low-normal, but this does not explain her symptoms/signs). B12 deficiency could explain her previous complaint from neurology outpatient visit of neuropathic type pain in the feet MRI brain w/ and w/o contrast with severe cerebrovascular disease as per neurology interpretation but unchanged from previous. 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 Unfortunately, not much can be done for this -Check myasthenia gravis antibody panel-pending and will need follow-up after discharge - Lyme titer with positive IgG, negative IgM--has had previous positive infection-this is likely indicative of old disease. Follow Western blot but doubtful of new infection and no need for treatment at this time - ESR, CRP normal for age -Replacing vitamin B12 -PT/OT/speech therapy all consulted and could benefit from outpatient speech therapy (3) Cerebrovascular disease: Plan: Vascular dementia with behavior disturbance and ambulatory dysfunction-behavior disturbance now completely resolved on AM of 11/10, then returned slightly in afternoon just before planned discharge Had significant agitation overnight on 11/06-10/2009 requiring IM Zyprexa and restraints Then with lethargy throughout the day on 11/07 secondary to Zyprexa Completely resolved behavior disturbance on 11/08 No evidence for infection anywhere Was given 1 L normal saline to hydrate well not taking p.o. now is eating and drinking without difficulty Likely hospital delirium in the setting of underlying Binswanger's With mild recurrence of hospital delirium just prior to discharge on 11/10--> will keep again overnight. Glucose ok at 108. Add Seroquel 12.5mg po hs to promote sleep and treat hallucinations (4) Hypoglycemia: Plan: Presenting glucose of 60 No hypoglycemia since then Insulins continued albeit at lower dose as above lowering home doses on discharge as she does not check her blood sugars Hemoglobin A1c is significantly lower now than it was just 2 months ago indicating likely low blood sugars at home (5) Atrial fibrillation with rapid ventricular response: Plan: S/p ablation by Dr Ivan Humphreys in the past. Pacing on monitor. Continue Xarelto but lowered the dose to 15 mg daily due to renal function Continue home metoprolol (6) CAD in [place] artery: Plan: No evidence of ACS. No ischemic symptoms. Continue statin, Imdur, metoprolol, Entresto, Xarelto (7) Chronic kidney disease (CKD), stage III (moderate): Plan: stage 3a Creatinine stable -Avoid nephrotoxins -renally dose meds when appropriate (8) Diabetes mellitus type 2 with complications: Plan: Patient is on Toujeo 20 units twice daily, Januvia, metformin as an outpatient. Per pharmacy counseling report from 1 month ago, patient has not had metformin refilled in nearly 1 year, and has 5 unused boxes of her insulin in her refrigerator. Both family members at time of admission confirmed she does not check her sugars or regularly take medications. She is managing medications on her own. Presented with a sugar of 60, received D50 and improved to 129. A1C 6.9% as above and hypoglycemia, much lower than it had been in the past, suspect episodes of hypoglycemia at home Lower Toujeo to 12 units twice daily on discharge, continue Januvia and metformin Encouraged her to check her blood sugars clinical staff educator will give her information on buying a continuous glucose monitor out right as an outpatient (9) Hypothyroidism: Plan: Continue levothyroxine. TSH 1.1. (10) HTN (hypertension): Plan: Mildly elevated here Cont Toprol, Imdur, Entresto. Adjust meds as needed. Continue home Lasix (11) Hypercalcemia: Plan: Peak total calcium level 11.2, now is 10.3 Intact PTH level sent and was wnl. Has an enlarged lymph node left neck - could be related. Needs f/u. Stop Vit D po and check Vit D level-mildly low 24-would not replace given hypercalcemia Follow-up as an outpatient (12) Chronic right-sided congestive heart failure: Plan: LV function has normalized with pacing. Echo 08/19: Normal left ventricular size and function, EF 55 to 60%, no regional WMA, mild LVH. Mildly reduced systolic function of right ventricle, moderate pulmonary hypertension, moderate to severe tricuspid regurg. Continue home Lasix 40 Mg twice daily Cont Entresto. Cont beta mauricio. Does not appear decompensated today. (13) Lymphadenopathy: Plan: left neck this will need close f/u as an outpatient (14) DVT prophylaxis: Plan: xarelto Plan Discussed her care with multiple family members at the bedside Disposition-plan to keep again overnight due to hospital delirium recurrence although much milder than previous. Hopefully dc to home tomorrow with home health if mentation improves Admission and Anticipated Discharge Date Admission Date: November 05, 2022 Subjective Pt was doing well earlier in day, ambulated up and down stairs and hallway with PT. Family at bedside pleased with how she's doing. Then just before discharge, family became concerned that she was talking about a closet in the hallway and thought her son had brought his "3 year old son" in to the hospital and was talking about friends coming to visit who had been for a while. SHe was redirectable but did seem slightly more confused than previously. Apparently she was confused overnight again, mild, asking repeatedly about her housecoat. Will cancel discharge to home today and keep overnight. Review of Systems Review of Systems: All systems reviewed & are unremarkable except as noted in HPI & below Physical Exam Constitutional: WD/WN, vitals as above Eyes: + anicteric sclerae ENMT: external ear and nose normal, oropharynx normal Neck: trachea midline, no thyromegaly Respiratory: normal respiratory effort, lungs clear to auscultation Cardiovascular: RRR, no murmur, no edema Chest (Breasts): Chest: normal inspection of chest Gastrointestinal (Abdomen): normal bowel sounds, soft, nontender, no hepatosplenomegaly Musculoskeletal: Extremities: extremities normal to inspection; no cyanosis and no clubbing Skin: no rashes, warm and dry Neurologic: CN's II-XI intact bilaterally, moves all extremities, awake and + confused (mild) Speech / Cognition: + abnormal speech (Severe dysarthria) Lymphatic: no lymphedema Results & Data Results & Data ([facility]) Vital Signs (Past 12 Hours) Vital Signs Temp Pulse Resp BP BP Pulse Ox O2 Del Method 11/10/22 16:03 36.4 C L 72 19 152/85 H 108/62 94 11/10/22 11:23 36.4 C L 72 19 108/62 94 Room Air 11/10/22 07:33 36.3 C L 83 16 152/85 H 97 Room Air PG Care Time/CCT Total # of Minutes Spent Total Time Spent with Patient: Total time spent is greater than 50% in coordination of care (as documented) at patient's floor/unit and/or counseling patient: Coding Level of Care Code 88357 SUB INP/OBS CARE MIN Diagnoses Multiple falls R29.6 Dysarthria R47.1 Cerebrovascular disease I67.9 Hypoglycemia E16.2 Atrial fibrillation with rapid ventricular response I48.91 CAD in [place] artery I25.10 Chronic kidney disease (CKD), stage III (moderate) N18.3 Diabetes mellitus type 2 with complications E11.8 Hypothyroidism E03.9 HTN (hypertension) I10 Hypercalcemia E83.52 Chronic right-sided congestive heart failure I50.812 Lymphadenopathy R59.1 DVT prophylaxis Z29.9
[2022-11-10] MEDS: ATORVASTATIN 40 MG TAB PO SCH (19:49)
[2022-11-10] MEDS ORDERED: QUEtiapine FUMARATE 25 MG TABLET PO SCH (21:00)
[2022-11-11] MEDS: LEVOTHYROXINE SODIUM 50 MCG TABLET PO SCH (06:37)
[2022-11-11 06:55] LABS: Basophils # (auto) 0.05 K/uL (0-0.2); Basophils % (auto) 0.6 %; Eosinophils # (auto) 0.23 K/uL (0-0.50); Eosinophils % (auto) 2.7 %; Hematocrit (blood only) 43.2 % (34.1-44.9); Hemoglobin 14.4 g/dl (12.0-16.0); Immature Granulocytes # (auto) 0.03 K/uL (0.00-0.02); Immature Granulocytes % (auto) 0.4 %; Lymphocytes # (auto) 2.74 K/uL (1.2-3.4); Mean Corpuscular Hemoglobin 30.6 pg (25.0-34.0); Mean Corpuscular Hgb Conc 33.3 g/dL (32.0-36.0); Mean Corpuscular Volume 91.7 fL (80.0-100.0); Mean Platelet Volume 11.7 fL (9.4-12.3); Monocytes # (auto) 0.45 K/uL (0.24-0.82); Monocytes % (auto) 5.3 %; Neutrophils # (auto) 5.06 K/uL (1.4-6.5); Platelet Count 154 K/uL (130-400); RDW Coefficient of Variation 13.7 % (11.5-14.5); RDW Standard Deviation 46.5 fL (36.4-46.3); Red Blood Count 4.71 M/uL (3.93-5.22); White Blood Count 8.56 K/ul (4.8-10.8)
[2022-11-11 07:34] LABS: BUN Creatinine Ratio 44.1 (10-20); Calcium 10.1 mg/dl (8.5-10.1); Creatinine Clr Calc Pharmacy 45.3 ml/min; Est GFR (African American) 65.9 ml/min; Est GFR (Non-African American) 56.8 ml/min; Magnesium 1.9 mg/dl (1.7-2.4); Potassium 4.1 mmol/L (3.5-5.1)
[2022-11-11] MEDS: ASPIRIN 81 MG ECTAB PO SCH (08:46)
[2022-11-11] MEDS: VALSARTAN/SACUBITRIL 26/24MG TAB PO SCH (08:46)
[2022-11-11] MEDS: METOPROLOL SUCC 50MG EXT REL TAB PO SCH (08:46)
[2022-11-11] MEDS: ISOSORBIDE MONO EXTENDED REL 30 MG TABCR PO SCH (08:48)
[2022-11-11] MEDS: CYANOCOBALAMIN (B-12) 500 MCG TABLET PO SCH (08:48)
[2022-11-11] MEDS: FUROSEMIDE 40 MG TAB PO SCH (08:48)
[2022-11-11] MEDS: MAGNESIUM OXIDE 400 MG TAB PO SCH (08:49)
[2022-11-11] MEDS: POTASSIUM CHLORIDE CRTAB 20 MEQ TABCR PO SCH (08:56)
[2022-11-11] MEDS: INSULIN ASPART PER UNIT SC SCH ×2 (08:56→12:38)
[2022-11-11] MEDS: LANTUS PER UNIT CHARGE SQ SCH (08:57)
[2022-11-11] MEDS ORDERED: RIVAROXABAN 15 MG TAB PO SCH ×2 (09:00→16:30)
[2022-11-11] MEDS ORDERED: Nursing to Pharmacy Communication SCH (10:15)
[2022-11-12] MEDS ORDERED: LANTUS PER UNIT CHARGE SQ SCH (09:00)
[2022-11-17 18:08] LABS: Acetylcholine Recep Modulating 19; Acetylcholine Recept Blocking <15 (<15); Receptor Binding Ab <0.30 nmol/L
== END 2022-11-11 13:55 | disposition home health service (06) | DRG 884 ==
LOC: ED 11:33 → EDINP 15:22 → INTOOBSV 15:22 → SUATTDRO 15:22 → 2N 18:33

== ENCOUNTER 2023-01-27 18:10 | Inpatient (IN) ==
--- NOTE | 2023-01-27 18:24 | ED Triage Note ---
Date of Service January 27, 2023 History of Present Illness This patient was briefly evaluated while in triage. An abbreviated physical exam was performed. This patient is a 82-year-old Female who presents to the ED for evaluation of slurring speech around 5pm. Things seem to improve on the way to the hospital. Stroke alert called. Physical Exam Initial orders for labs and / or imaging were placed and patient was placed in the waiting area until a bed is available. Please see further documentation for the full ED course. MDM / Impression Impression Impression: Stroke-like symptom, Dysarthria
--- NOTE | 2023-01-27 18:36 | Emergency Department Note ---
Impression & Plan Stroke-like symptom, Dysarthria ED Provider Note NAME: PARADISE MARMOLEJO AGE: 82 SEX: F : 1940 ARRIVES VIA: Walk-In INFORMANT: Patient, the patient's family members ED PROVIDER(S): Giovany Arellano DO CHIEF COMPLAINT: Stroke alert HPI: The patient is an 82-year-old female who presented to the emergency department for an evaluation of strokelike symptoms. The patient states that she awoke with symptoms after taking a nap in a chair. The patient was with her significant other and he does provide part of the history. Apparently the pat ient was in her normal state of health. She sat down in a recliner at approximately 4 PM. The patient awoke around 5 PM. When she awoke she went to go to the kitchen and help her . He noticed that she was using a walker but seem to be having some trouble walking as well as trying to sit down. When he tried to talk to her he could not understand what she was saying. He describes it as a thick speech. The patient's had a history of stroke in the past. She also has a history of atrial fibrillation. The thinks that she takes Xarelto and states that she has been compliant with her medications and thinks that she took it this morning. The patient's had no vomiting. She has no headache. She has had no recent fevers or falls. The patient does have a history of stroke in the past and her son states that this is how her previous strokes presented. ROS: See above HPI for pertinent positives & negatives. A total of 10 systems reviewed and were otherwise negative. PAST MEDICAL HISTORY: See Below PAST SURGICAL HISTORY: See Below FAMILY HISTORY: See Below SOCIAL HISTORY: See Below HOME MEDICATIONS: See Below ALLERGIES: See Below VITALS: See Below PHYSICAL EXAMINATION: GENERAL: The patient was evaluated in CAT scan. The patient is awake and look around the room. EYES: The conjunctivae are clear. The pupils are round and reactive. EARS, NOSE, MOUTH AND THROAT: The nose is without any evidence of any deformity. Mucous membranes are moist. Ulcerations were noted on the tongue. NECK: The neck is nontender and supple. RESPIRATORY: Normal respiratory effort is noted there is no evidence of wheezing rhonchi or rales CARDIOVASCULAR: Irregular heart sounds were noted to auscultation. There is no murmur GASTROINTESTINAL: The abdomen is soft. Abdomen is nontender. MUSCULOSKELETAL/EXTREMITIES: There is no evidence of gross deformity full range of motion is noted in the hips and shoulders. SKIN: Trace pedal edema was noted bilaterally. NEUROLOGIC: Patient is awake alert and oriented x3. Speech was thick. There is no drift in the upper extremities. Patient is able to hold each leg off of the chair for greater than 5 seconds. MEDICAL DECISION MAKING: The patient is an 82-year-old female who presented to the emergency department through triage for an evaluation of strokelike symptoms. The patient was found to have an exam consistent with possible stroke. She was made a stroke alert from triage. She went directly to CT. I evaluated the patient in CT. She was found to have mostly dysarthria. Motor seem to be intact grossly to my exam. The patient does have a history of atrial fibrillation. She has a pacemaker. The patient also takes blood thinners. After questioning the patient it does appear that she is compliant with her medications and took her last dose of Xar elto this morning. She was not a candidate for thrombolytics because of the medications that she was on. I discussed patient's laboratory and radiographic studies with her. She was not found to have a large vessel occlusion on CT angiography. The patient was reevaluated multiple times. Symptoms did not significantly change. I discussed her condition with the on-call [facility] hospitalist. They have agreed to evaluate the patient in the emergency department for further management and disposition. Triage Nursing notes reviewed. Prior medical records reviewed Vital Signs: reviewed and remarkable for elevated blood pressure. Differential diagnosis: Infection, dehydration, metabolic abnormality, hypo/hyperglycemia, electrolyte disturbance, anemia, hypoxia, cardiac sources, intracerebral event, toxicologic, neurologic, as well as other pathologies. ER treatment provided: See below Diagnostics interpreted by me: ECG: EKG was obtained in the emergency department. My interpretation is ventricular paced rhythm at 74 bpm. No [place] beats were noted. Bundle branch block was noted. This was compared to a tracing from November 05, 2022. No changes were noted. Cardiac Monitoring: An order was placed for continuous cardiac monitoring. The monitor shows a rate of 70 bpm with pacemaker rhythm Laboratory studies: As stated above and show below. Imaging studies: See below. Radiographic imaging was reviewed by myself Consultation(s): I discussed this case with Dr Machuca with [facility] [place] ED COURSE: Procedures: none Critical Care: I have personally spent greater than 35 minutes of critical care time in the direct management of this patient. This includes bedside care, interpretation of diagnostic studies, and testing, discussion with consultants, patient, and family members, and other required patient management activities. This 35 minutes is in excess of all separately billable procedures. 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 Diabetic peripheral neuropathy Diabetic retinopathy, nonproliferative Digoxin toxicity HTN (hypertension) Hypercholesterolemia Hypothyroidism Kidney stones LBBB (left bundle branch block) Mitral regurgitation Multiple joint pain Nocturnal hypoxia Psoriasis Pulmonary hypertension Restrictive lung disease Tricuspid valve insufficiency Surgical History History of appendectomy History of cholecystectomy History of hysterectomy S/P AV bibi ablation Status post implantation of automatic cardioverter/defibrillator (AICD) Status post implantation of automatic cardioverter/defibrillator (AICD) 09/14 SUZY Family History Family/Other Cancer Mother Diabetes Myocardial infarction Other Prostate cancer Denies family history of Ovarian cancer Breast cancer Colorectal cancer Social History Smoking Status: Unknown if ever smoked Second Hand Exposure: No; Hx Alcohol Use: No Hx Substance Use: No Preferred Language: Thai Communication Ability: Effective Visual Impairment: No Limitations Hearing Ability: Normal Sales Account Leader Required: No Beliefs That Will Affect Care: None marital status: Current Living Situation: Spouse and Family Current Living Situation Comment: son and current occupational status: retired Other Information That Helps Us Care for You: No Feels Safe at Home: Yes Safety Concerns: Feels Safe At This Time Childhood Exposure to Second-Hand Smoke: No Diet Comment: diabetic Dental Care, Regularly: No Physical Activity Frequency: 1-2 Times per Week Seatbelt Use: sometimes Assistive Devices: Cane, Denture - Upper, Denture - Lower, Glasses and Walker Allergies Allergies Allergy/AdvReac Type Severity Reaction Status Date / Time Penicillins Allergy Severe RASH,JAQUAN Verified 01/27/23 18:59 NG Home Meds Home Medications Medication Instructions Recorded Confirmed potassium chloride 20 mEq 20 meq PO BID 09/12/18 01/27/23 tablet,extended release furosemide 40 mg tablet (Lasix) 40 mg PO BID 11/05/22 01/27/23 Previous Rx's Medication Instructions Recorded atorvastatin 40 mg tablet 40 mg PO HS #90 tabs 08/23/21 levothyroxine 50 mcg tablet 50 mcg PO DAILY #90 tabs 08/29/21 Wheeled Walker #1 ea 03/02/22 sacubitril 24 mg-valsartan 26 mg 1 tab PO BID #180 tabs 05/25/22 tablet (Entresto) metoprolol succinate 100 mg 100 mg PO DAILY #90 tabs 07/31/22 tablet,extended release 24 hr isosorbide mononitrate 30 mg 30 mg PO DAILY #90 tabs 08/14/22 tablet,extended release 24 hr sitagliptin phosphate 50 mg tablet 50 mg PO DAILY #90 tabs 08/31/22 aspirin 81 mg tablet,delayed 81 mg PO QAM #30 tabs 11/10/22 release cyanocobalamin (vitamin B-12) 1,000 mcg PO DAILY #30 caps 11/10/22 1,000 mcg capsule insulin glargine U-300 conc 300 12 unit (0.04 mL) subcut BID #1.5 11/10/22 unit/mL (1.5 mL) subcutaneous pen mL (Toujeo SoloStar U-300 Insulin) rivaroxaban 15 mg tablet (Xarelto) 15 mg PO DAILY #30 tabs 11/10/22 blood sugar diagnostic #100 ea 11/13/22 blood-glucose meter (OneTouch #1 ea 11/13/22 Ultra2 Meter) lancets 30 gauge (OneTouch Delica #100 ea 11/13/22 Plus Lancet) quetiapine 25 mg tablet (Seroquel) 12.5 mg PO HS #45 tabs 11/20/22 metformin 500 mg tablet 500 mg PO BID #180 tabs 01/12/23 Results & Data (ED) Vital Signs Vital Signs - 24 hr 01/27/23 18:23 01/27/23 19:03 01/27/23 19:03 Temperature 36.6 C Temperature Source Temporal Artery Scan Pulse Rate 72 79 77 Pulse Rate from SpO2 Sensor Respiratory Rate 18 17 Respiratory Effort / Characteristics Non-Labored Spontaneous Respiratory Depth Normal Blood Pressure 169/86 H Blood Pressure Mean 113 Pulse Oximetry 95 Oxygen Delivery Method Room Air Sepsis Recent Fever Within 48 Hours No Sepsis New/Unexplained Change in Mental Status No Sepsis Action Taken by Nursing No Action Required 01/27/23 19:10 01/27/23 19:10 01/27/23 19:15 Temperature Temperature Source Pulse Rate 70 Pulse Rate from SpO2 Sensor 68 70 Respiratory Rate 23 15 Respiratory Effort / Characteristics Respiratory Depth Blood Pressure 187/96 H Blood Pressure Mean 126 Pulse Oximetry 96 92 Oxygen Delivery Method Sepsis Recent Fever Within 48 Hours Sepsis New/Unexplained Change in Mental Status Sepsis Action Taken by Nursing 01/27/23 19:15 01/27/23 19:30 01/27/23 19:31 Temperature Temperature Source Pulse Rate 71 Pulse Rate from SpO2 Sensor 71 78 Respiratory Rate 15 Respiratory Effort / Characteristics Respiratory Depth Blood Pressure 180/92 H Blood Pressure Mean 121 Pulse Oximetry 93 93 Oxygen Delivery Method Sepsis Recent Fever Within 48 Hours Sepsis New/Unexplained Change in Mental Status Sepsis Action Taken by Nursing 01/27/23 19:31 01/27/23 19:46 01/27/23 19:46 Temperature Temperature Source Pulse Rate 70 Pulse Rate from SpO2 Sensor 67 Respiratory Rate Respiratory Effort / Characteristics Respiratory Depth Blood Pressure 177/88 H 203/91 H Blood Pressure Mean 117 128 Pulse Oximetry 91 Oxygen Delivery Method Sepsis Recent Fever Within 48 Hours Sepsis New/Unexplained Change in Mental Status Sepsis Action Taken by Nursing 01/27/23 19:47 01/27/23 19:47 01/27/23 20:00 Temperature Temperature Source Pulse Rate 70 Pulse Rate from SpO2 Sensor 70 Respiratory Rate Respiratory Effort / Characteristics Respiratory Depth Blood Pressure 182/94 H 198/113 H Blood Pressure Mean 123 141 Pulse Oximetry 94 Oxygen Delivery Method Sepsis Recent Fever Within 48 Hours Sepsis New/Unexplained Change in Mental Status Sepsis Action Taken by Nursing 01/27/23 20:00 01/27/23 20:15 01/27/23 20:15 Temperature Temperature Source Pulse Rate 70 Pulse Rate from SpO2 Sensor 69 70 Respiratory Rate 22 Respiratory Effort / Characteristics Respiratory Depth Blood Pressure 199/98 H Blood Pressure Mean 131 Pulse Oximetry 94 95 Oxygen Delivery Method Sepsis Recent Fever Within 48 Hours Sepsis New/Unexplained Change in Mental Status Sepsis Action Taken by Nursing 01/27/23 20:30 01/27/23 20:30 Temperature Temperature Source Pulse Rate Pulse Rate from SpO2 Sensor 70 Respiratory Rate Respiratory Effort / Characteristics Respiratory Depth Blood Pressure 186/112 H Blood Pressure Mean 136 Pulse Oximetry 95 Oxygen Delivery Method Sepsis Recent Fever Within 48 Hours Sepsis New/Unexplained Change in Mental Status Sepsis Action Taken by Longterm Medications Current Medication List: was personally reviewed by me Laboratory Data Attestation: I reviewed the patient's lab results. 01/27/23 18:54 01/27/23 18:54 Lab Results 01/27/23 01/27/23 01/27/23 Range/Units 18:53 18:54 18:54 WBC 10.14 (4.8-10.8) K/ul RBC 4.66 (4.20-5.40) M/uL Hgb 13.7 (12.0-16.0) g/dl POC Hgb (12.0-16.0) g/dl Hct 42.4 (37.0-47.0) % POC Hct (37-47) % MCV 91.0 (80.0-100.0) fL MCH 29.4 (25.0-34.0) pg MCHC 32.3 (32.0-36.0) g/dL RDW Std Deviation 48.0 H (36.4-46.3) fL RDW Coeff of Luana 14.5 (11.5-14.5) % Plt Count 200 (130-400) K/uL MPV 11.5 (9.4-12.4) fL Immature Gran % (Auto) 0.4 % Neut % (Auto) 67.4 % Lymph % (Auto) 22.8 % [place] % (Auto) 5.9 % Eos % (Auto) 3.0 % Baso % (Auto) 0.5 % Neut # (Auto) 6.84 H (1.40-6.50) K/uL Lymph # (Auto) 2.31 (1.2-3.4) K/uL [place] # (Auto) 0.60 H (0.11-0.59) K/uL Eos # (Auto) 0.30 (0-0.50) K/uL Baso # (Auto) 0.05 (0-0.2) K/uL Immature Gran # (Auto) 0.04 (0.01-0.20) K/uL PT 11.9 (9.0-12.0) Seconds INR 1.1 (0.9-1.1) APTT 25.5 (21.0-31.0) Seconds PTT Ratio 0.9 POC Sodium (135-144) mmol/L Sodium (136-145) mmol/L POC Potassium (3.3-5.0) mmol/L Potassium (3.5-5.1) mmol/L POC Chloride (101-112) mmol/L Chloride (98-107) mmol/L Carbon Dioxide (21-32) mmol/L POC Total CO2 (24-31) mmol/L Anion Gap (3-11) POC Anion Gap (16-25) mmol/L POC BUN (7-18) mg/dl BUN (6-23) mg/dl Creatinine (0.6-1.2) mg/dl POC Creatinine (0.6-1.3) mg/dl Est Cr Clr Drug Dosing ml/min Est GFR ( Amer) ml/min Est GFR (Non-Af Amer) ml/min BUN/Creatinine Ratio (10-20) Glucose (70-99(Fasting)) mg/dl POC Glucose 184 H (70-99) mg/dl POC Glucose (other) (70-99) mg/dl Calcium (8.6-10.3) mg/dl POC Ioniz Calcium Nash (1.12-1.32) mmol/l Magnesium (1.7-2.4) mg/dl Total Bilirubin (0.2-1.0) mg/dl AST (13-39) U/L ALT (7-52) U/L Alkaline Phosphatase (34-104) U/L Troponin I High Sens (0-14) pg/ml Total Protein (6.0-8.3) gm/dl Albumin (3.4-5.0) gm/dl Globulin (2.5-4.0) gm/dl Albumin/Globulin Ratio (0.9-2) Urine Color Urine Appearance (Clear) Urine pH (4.5-7.5) Ur Specific [place] (1.000-1.030) Urine Protein (Negative) Urine Glucose (UA) (Negative) Urine Ketones (Negative) Urine Blood (Negative) Urine Nitrite (Negative) Urine Bilirubin (Negative) Urine Urobilinogen (Negative) Ur Leukocyte Esterase (Negative) Urine WBC (Auto) (0-5) /hpf Urine RBC (Auto) (0-4) /hpf U Hyaline Cast (Auto) (0-5) /lpf U Epithel Cells (Auto) (0-5) /lpf Urine Bacteria (Auto) (Negative) 01/27/23 01/27/23 01/27/23 Range/Units 18:54 18:56 19:30 WBC (4.8-10.8) K/ul RBC (4.20-5.40) M/uL Hgb (12.0-16.0) g/dl POC Hgb 14.6 (12.0-16.0) g/dl Hct (37.0-47.0) % POC Hct 43 (37-47) % MCV (80.0-100.0) fL MCH (25.0-34.0) pg MCHC (32.0-36.0) g/dL RDW Std Deviation (36.4-46.3) fL RDW Coeff of Luana (11.5-14.5) % Plt Count (130-400) K/uL MPV (9.4-12.4) fL Immature Gran % (Auto) % Neut % (Auto) % Lymph % (Auto) % [place] % (Auto) % Eos % (Auto) % Baso % (Auto) % Neut # (Auto) (1.40-6.50) K/uL Lymph # (Auto) (1.2-3.4) K/uL [place] # (Auto) (0.11-0.59) K/uL Eos # (Auto) (0-0.50) K/uL Baso # (Auto) (0-0.2) K/uL Immature Gran # (Auto) (0.01-0.20) K/uL PT (9.0-12.0) Seconds INR (0.9-1.1) APTT (21.0-31.0) Seconds PTT Ratio POC Sodium 138 (135-144) mmol/L Sodium 136 (136-145) mmol/L POC Potassium 3.9 (3.3-5.0) mmol/L Potassium 4.0 (3.5-5.1) mmol/L POC Chloride 97 L (101-112) mmol/L Chloride 101 (98-107) mmol/L Carbon Dioxide 30 (21-32) mmol/L POC Total CO2 29 (24-31) mmol/L Anion Gap 5 (3-11) POC Anion Gap 17.0 (16-25) mmol/L POC BUN 27 H (7-18) mg/dl BUN 29 H (6-23) mg/dl Creatinine 0.97 (0.6-1.2) mg/dl POC Creatinine 1.0 (0.6-1.3) mg/dl Est Cr Clr Drug Dosing 41.9 ml/min Est GFR ( Amer) 62.6 ml/min Est GFR (Non-Af Amer) 54.0 ml/min BUN/Creatinine Ratio 29.9 H (10-20) Glucose 206 H (70-99(Fasting)) mg/dl POC Glucose (70-99) mg/dl POC Glucose (other) 196 H (70-99) mg/dl Calcium 10.1 (8.6-10.3) mg/dl POC Ioniz Calcium Nash 1.30 (1.12-1.32) mmol/l Magnesium 1.7 (1.7-2.4) mg/dl Total Bilirubin 1.4 H (0.2-1.0) mg/dl AST 17 (13-39) U/L ALT 17 (7-52) U/L Alkaline Phosphatase 150 H (34-104) U/L Troponin I High Sens 11.4 (0-14) pg/ml Total Protein 6.5 (6.0-8.3) gm/dl Albumin 3.9 (3.4-5.0) gm/dl Globulin 2.6 (2.5-4.0) gm/dl Albumin/Globulin Ratio 1.5 (0.9-2) Urine Color Dark Yellow Urine Appearance Clear (Clear) Urine pH 5.5 (4.5-7.5) Ur Specific [place] 1.041 H (1.000-1.030) Urine Protein 1+ H (Negative) Urine Glucose (UA) Negative (Negative) Urine Ketones Trace H (Negative) Urine Blood Negative (Negative) Urine Nitrite Negative (Negative) Urine Bilirubin Negative (Negative) Urine Urobilinogen Negative (Negative) Ur Leukocyte Esterase 1+ H (Negative) Urine WBC (Auto) 5-10 H (0-5) /hpf Urine RBC (Auto) 0-4 (0-4) /hpf U Hyaline Cast (Auto) 1-5 (0-5) /lpf U Epithel Cells (Auto) >30 H (0-5) /lpf Urine Bacteria (Auto) Negative (Negative) Administered Medications Aspirin (Aspirin 81 Mg Ectab) 81 mg PO QAM FERNANDO Stop: 02/27/23 08:59 Last Admin: 01/28/23 10:02 Dose: 81 mg Documented By: WS Atorvastatin Calcium (Atorvastatin 40 Mg Tab) 40 mg PO HS FERNANDO Stop: 02/26/23 22:45 Last Admin: 01/28/23 01:02 Dose: Not Given Documented By: ESG Cyanocobalamin (Cyanocobalamin (B-12) 500 Mcg Tablet) 1,000 mcg PO DAILY FERNANDO Stop: 02/27/23 08:59 Last Admin: 01/28/23 10:02 Dose: 1,000 mcg Documented By: WS Furosemide (Furosemide 40 Mg Tab) 40 mg PO BID17 FERNANDO Stop: 02/26/23 22:45 Last Admin: 01/28/23 10:01 Dose: 40 mg Documented By: Admin: 01/28/23 01:02 Dose: Not Given Documented By: ESG Acetaminophen (Ofirmev) 1,000 mg in 100 mls @ 400 mls/hr IV Q8H PRN PRN Reason: Pain Stop: 01/31/23 03:03 Last Infusion: 01/28/23 03:29 Dose: 0 mls/hr Documented By: Admin: 01/28/23 03:14 Dose: 400 mls/hr Documented By: ESG Potassium Chloride/Sodium Chloride (Normal Saline W/20 Meq Kcl) 20 meq in 1,000 mls @ 80 mls/hr IV .[id number] FERNANDO Stop: 01/28/23 20:29 Last Admin: 01/28/23 09:20 Dose: 80 mls/hr Documented By: JAN Insulin Aspart (Insulin Aspart Per Unit Charge) 0 units SC ACHS FERNANDO Stop: 02/27/23 07:29 Last Admin: 01/28/23 13:09 Dose: 2 units Documented By: JAN Co-signed By: HERIBERTOB Admin: 01/28/23 09:23 Dose: 1 units Documented By: JAN Co-signed By: PACO Isosorbide Mononitrate (Isosorbide [place] Extended Rel 30 Mg Tabcr) 30 mg PO DAILY FERNANDO Stop: 02/27/23 08:59 Last Admin: 01/28/23 10:02 Dose: 30 mg Documented By: WS Levothyroxine Sodium (Levothyroxine Sodium 50 Mcg Tablet) 50 mcg PO DAILYBB FERNANDO Stop: 02/27/23 06:29 Last Admin: 01/28/23 06:17 Dose: Not Given Documented By: ESG Metoprolol Succinate (Metoprolol Succ 50mg Ext Rel Tab) 100 mg PO DAILY FERNANDO Stop: 02/27/23 08:59 Last Admin: 01/28/23 10:02 Dose: 100 mg Documented By: WS Potassium Chloride (Potassium Chloride Crtab 20 Meq Tabcr) 20 meq PO BID FERNANDO Stop: 02/26/23 22:45 Last Admin: 01/28/23 10:01 Dose: 20 meq Documented By: Admin: 01/28/23 01:03 Dose: Not Given Documented By: ESG Quetiapine Fumarate (Quetiapine Fumarate 25 Mg Tablet) 12.5 mg PO HS [facility] Stop: 02/26/23 22:45 Last Admin: 01/28/23 01:03 Dose: Not Given Documented By: ESG Discontinued Medications Furosemide (Furosemide Inj 20 Mg/2 Ml Vial) 20 mg IV ONE ONE Stop: 01/27/23 22:16 Last Admin: 01/28/23 01:22 Dose: Not Given Documented By: ESG Furosemide (Furosemide 40 Mg/4 Ml Vial) Confirm Administered Dose 40 mg IV .STK- MED ONE Stop: 01/28/23 01:20 Last Admin: 01/28/23 01:21 Dose: 40 mg Documented By: ESG Magnesium Sulfate/Dextrose (Magnesium Sulfate / D5w) 1 gm in 100 mls @ 100 mls/hr IV NOW STA Stop: 01/27/23 20:33 Last Infusion: 01/27/23 20:58 Dose: 0 mls/hr Documented By: resp ther: 01/27/23 19:42 Dose: 100 mls/hr Documented By: [facility] Sodium Chloride (Nss 1000ml) 500 mls @ 999 mls/hr IV .Q31M ONE Stop: 01/27/23 20:04 Last Infusion: 01/27/23 22:58 Dose: 0 mls/hr Documented By: Admin: 01/27/23 19:42 Dose: 999 mls/hr Documented By: KANDICE Sodium Chloride (Nss 1000ml) 1,000 mls @ 80 mls/hr IV .[id number] FERNANDO Stop: 02/26/23 21:59 Last Admin: 01/28/23 11:43 Dose: Not Given Documented By: Infusion: 01/28/23 09:21 Dose: 0 mls/hr Documented By: Admin: 01/28/23 01:00 Dose: 80 mls/hr Documented By: ESAliya Ioversol (Optiray 320 500ml) 116 ml IV ONCE ONE Stop: 01/27/23 18:52 Last Admin: 01/27/23 18:51 Dose: 116 ml Documented By: VERONICA Imaging Data Attestation: I personally reviewed and interpreted this imaging study as follows: My Impression: CT of the head was obtained in the emergency department. My interpretation is no intracranial hemorrhage or mass effect, final report below Radiologist's Impression: Chest X-Ray 01/27/23 18:24 XR chest 1V portable CLINICAL HISTORY: neuro deficit, acute stroke suspected TECHNIQUE: Single frontal radiograph of the chest was obtained. Comparison: Comparison is made to chest radiograph 11/05/2022 FINDINGS: Pacemaker defibrillator is seen. Calcified aortic knob is seen. There is prominence and cephalization of the vasculature with Jeffrey B lines seen. Lungs are underinflated. IMPRESSION: Cardiomegaly and moderate pulmonary edema. ACT 112: Negative or not required by law. Electronically signed by: Papo Stapleton M.D. 01/27/2023 7:[address] 01/27/23 18:24 CT angio neck with con, CT angio head w con, CT head/brain wo con CLINICAL HISTORY: neuro deficit, acute stroke suspected TECHNIQUE: Contiguous axial CT images of the head were acquired from the base of the skull to the vertex without intravenous contrast administration. CT angiog lenny of the head and neck was performed following intravenous administration of iodinated contrast. Coronal and sagittal MIPS were obtained from the axial data set and were submitted for review. Automated dose lowering techniques and/or adjustment according to patient size were utilized for this examination. All measurements were calculated based on NASCET criteria. CT DOSE: 765.95 mGy.cm (accession [id number]), 614.27 mGy.cm (accession [id number]) Comparison: Comparison is made to MRI brain 12/03/2019 FINDINGS: CT head: Areas of decreased attenuation are present in the periventricular and subcortical white matter bilaterally consistent with small vessel ischemic disease. Generalized cerebral atrophy with commensurate enlargement of the ventricles, sulci, and cisterns is also present. There is no acute intracranial hemorrhage or evidence of acute territorial infarction. No shift of the midline structures, mass effect, or extra-axial abnormalities are shown. Atherosclerotic calcifications are present in the intracranial segments of the internal carotid arteries. Right insular hypodensity is noted which may represent old infarct. Mediastinal lymph nodes measure up to 11 mm in diameter. CTA Neck: A 3 vessel aortic arch is shown. There is no significant atherosclerotic plaque in the aortic arch or the origins of the innominate, left common carotid, and left subclavian arteries. There is nonhemodynamically significant stenosis of the left greater than right internal carotid arteries at the carotid bulbs. The left vertebral artery is dominant. CTA Head: The anterior and posterior cerebral circulations are patent. origin of the right posterior cerebral artery is seen. IMPRESSION: 1. No acute intracranial hemorrhage, evidence of acute territorial infarction, or other acute intracranial disease process. 2. No occlusion, hemodynamically significant stenosis, or dissection in the major cervical arteries. 3. No occlusion, hemodynamically significant stenosis, aneurysm, dissection, or arteriovenous malformation in the major intracranial arteries. Assessment of stenosis of the internal carotid arteries is based on NASCET criteria. ACT 112: Negative or not required by law. Electronically signed by: Papo Stapleton M.D. 01/27/2023 7:11 PM Head CTA 01/27/23 18:24 CT angio neck with con, CT angio head w con, CT head/brain wo con CLINICAL HISTORY: neuro deficit, acute stroke suspected TECHNIQUE: Contiguous axial CT images of the head were acquired from the base of the skull to the vertex without intravenous contrast administration. CT angiography of the head and neck was performed following intravenous administration of iodinated contrast. Coronal and sagittal MIPS were obtained from the axial data set and were submitted for review. Automated dose lowering techniques and/or adjustment according to patient size were utilized for this examination. All measurements were calculated based on NASCET criteria. CT DOSE: 765.95 mGy.cm (accession [id number]), 614.27 mGy.cm (accession [id number]) Comparison: Comparison is made to MRI brain 12/03/2019 FINDINGS: CT head: Areas of decreased attenuation are present in the periventricular and subcortical white matter bilaterally consistent with small vessel ischemic disease. Generalized cerebral atrophy with commensurate enlargement of the ventricles, sulci, and cisterns is also present. There is no acute intracranial hemorrhage or evidence of acute territorial infarction. No shift of the midline structures, mass effect, or extra-axial abnormalities are shown. Atherosclerotic calcifications are present in the intracranial segments of the internal carotid arteries. Right insular hypodensity is noted which may re present old infarct. Mediastinal lymph nodes measure up to 11 mm in diameter. CTA Neck: A 3 vessel aortic arch is shown. There is no significant at herosclerotic plaque in the aortic arch or the origins of the innominate, left common carotid, and left subclavian arteries. There is nonhemodynamically significant stenosis of the left greater than right internal carotid arteries at the carotid bulbs. The left vertebral artery is dominant. CTA Head: The anterior and posterior cerebral circulations are patent. or igin of the right posterior cerebral artery is seen. IMPRESSION: 1. No acute intracranial hemorrhage, evidence of acute territorial infarction, or other acute intracranial disease process. 2. No occlusion, hemodynamically significant stenosis, or dissection in the major cervical arteries. 3. No occlusion, hemodynamically significant stenosis, aneurysm, dissection, or arteriovenous malformation in the major intracranial arteries. Assessment of stenosis of the internal carotid arteries is based on NASCET criteria. ACT 112: Negative or not required by law. Electronically signed by: Papo Stapleton M.D. 01/27/2023 7:11 PM Neck CTA 01/27/23 18:24 CT angio neck with con, CT angio head w con, CT head/brain wo con CLINICAL HISTORY: neuro deficit, acute stroke suspected TECHNIQUE: Contiguous axial CT images of the head were acquired from the base of the skull to the vertex without intravenous contrast administration. CT angiography of the head and neck was performed following intravenous adminis tration of iodinated contrast. Coronal and sagittal MIPS were obtained from the axial data set and were submitted for review. Automated dose lowering techniques and/or adjustment according to patient size were utilized for this examination. All measurements were calculated based on NASCET criteria. CT DOSE: 765.95 mGy.cm (accession [id number]), 614.27 mGy.cm (accession [id number]) Comparison: Comparison is made to MRI brain 12/03/2019 FINDINGS: CT head: Areas of decreased attenuation are present in the periventricular and subcortical white matter bilaterally consistent with small vessel ischemic disease. Generalized cerebral atrophy with commensurate enlargement of the ventricles, sulci, and cisterns is also present. There is no acute intracranial hemorrhage or evidence of acute territorial infarction. No shift of the midline structures, mass effect, or extra-axial abnormalities are shown. Atherosclerotic calcifications are present in the intracranial segments of the internal carotid arteries. Right insular hypodensity is noted which may represent old infarct. Mediastinal lymph nodes measure up to 11 mm in diameter. CTA Neck: A 3 vessel aortic arch is shown. There is no significant atherosclerotic plaque in the aortic arch or the origins of the innominate, left common carotid, and left subclavian arteries. There is nonhemodynamically significant stenosis of the left greater than right internal carotid arteries at the carotid bulbs. The left vertebral artery is dominant. CTA Head: The anterior and posterior cerebral circulations are patent. origin of the right posterior cerebral artery is seen. IMPRESSION: 1. No acute intracranial hemorrhage, evidence of acute territorial infarction, or other acute intracranial disease process. 2. No occlusion, hemodynamically significant stenosis, or dissection in the major cervical arteries. 3. No occlusion, hemodynamically significant stenosis, aneurysm, dissection, or arteriovenous malformation in the major intracranial arteries. Assessment of stenosis of the internal carotid arteries is based on NASCET criteria. ACT 112: Negative or not required by law. Electronically signed by: Papo Stapleton M.D. 01/27/2023 7:11 PM Discharge Plan Visit Data Chief Complaint: Illness Stated Complaint: ILLNESS ED Provider: Giovany Arellano Discharge Problem: Stroke-like symptom, Dysarthria Patient Disposition: Admitted As Inpatient Discharge Instructions Interventions: ED Discharge Assessment Last Done: 01/27/23 22:52
[2023-01-27] MEDS ORDERED: OPTIRAY 320 500ml IV ONE (18:51)
[2023-01-27 19:09] LABS: iSTAT Hemoglobin 14.6 g/dl (12.0-16.0); iSTAT Ionized Calcium 1.3 mmol/l (1.12-1.32); iSTAT Potassium 3.9 mmol/L (3.3-5.0)
[2023-01-27 19:11] LABS: Basophils # (auto) 0.05 K/uL (0-0.2); Basophils % (auto) 0.5 %; Hematocrit (blood only) 42.4 % (37.0-47.0); Hemoglobin 13.7 g/dl (12.0-16.0); Immature Granulocytes # (auto) 0.04 K/uL (0.01-0.20); Immature Granulocytes % (auto) 0.4 %; Lymphocytes # (auto) 2.31 K/uL (1.2-3.4); Lymphocytes % (auto) 22.8 %; Mean Corpuscular Hemoglobin 29.4 pg (25.0-34.0); Mean Corpuscular Hgb Conc 32.3 g/dL (32.0-36.0); Mean Platelet Volume 11.5 fL (9.4-12.4); Monocytes % (auto) 5.9 %; Neutrophils # (auto) 6.84 K/uL (1.40-6.50); Neutrophils % (auto) 67.4 %; Platelet Count 200 K/uL (130-400); RDW Coefficient of Variation 14.5 % (11.5-14.5); Red Blood Count 4.66 M/uL (4.20-5.40); White Blood Count 10.14 K/ul (4.8-10.8)
--- NOTE | 2023-01-27 19:14 | CT Scan Report ---
CT angio neck with con, CT angio head w con, CT head/brain wo con CLINICAL HISTORY: neuro deficit, acute stroke suspected TECHNIQUE: Contiguous axial CT images of the head were acquired from the base of the skull to the dionne coni without intravenous contrast administration. CT angiography of the head and neck was performed f ollowing intravenous administration of iodinated contrast. Coronal and sagittal MIPS were obtained fr om the axial data set and were submitted for review. Automated dose lowering techniques and/or adjus tment according to patient size were utilized for this examination. All measurements were calculated based on NASCET criteria. CT DOSE: 765.95 mGy.cm (accession [id number]), 614.27 mGy.cm (accession [id number]) Comparison: Comparison is made to MRI brain 12/03/2019 FINDINGS: CT head: Areas of decreased attenuation are present in the periventricular and subcortical white jeannine er bilaterally consistent with small vessel ischemic disease. Generalized cerebral atrophy with comme nsurate enlargement of the ventricles, sulci, and cisterns is also present. There is no acute intracr anial hemorrhage or evidence of acute territorial infarction. No shift of the midline structures, mas s effect, or extra-axial abnormalities are shown. Atherosclerotic calcifications are present in the intracranial segments of the internal carotid arteries. Right insular hypodensity is noted which may represent old infarct. Mediastinal lymph nodes measure up to 11 mm in diameter. CTA Neck: A 3 vessel aortic arch is shown. There is no significant atherosclerotic plaque in the aor tic arch or the origins of the innominate, left common carotid, and left subclavian arteries. There is nonhemodynamically significant stenosis of the left greater than right internal carotid arteries a t the carotid bulbs. The left vertebral artery is dominant. CTA Head: The anterior and posterior cerebral circulations are patent. origin of the right pos terior cerebral artery is seen. IMPRESSION: 1. No acute intracranial hemorrhage, evidence of acute territorial infarction, or other acute intrac ranial disease process. 2. No occlusion, hemodynamically significant stenosis, or dissection in the major cervical arteries. 3. No occlusion, hemodynamically significant stenosis, aneurysm, dissection, or arteriovenous malfor mation in the major intracranial arteries. Assessment of stenosis of the internal carotid arteries is based on NASCET criteria. ACT 112: Negative or not required by law. Electronically signed by: Papo Stapleton M.D. 01/27/2023 7:11 PM
[2023-01-27 19:24] LABS: Albumin Globulin Ratio 1.5 (0.9-2); Albumin Level 3.9 gm/dl (3.4-5.0); BUN Creatinine Ratio 29.9 (10-20); Bilirubin,Total 1.4 mg/dl (0.2-1.0); Calcium 10.1 mg/dl (8.6-10.3); Creatinine Clr Calc Pharmacy 41.9 ml/min; Est GFR (African American) 62.6 ml/min; Globulin 2.6 gm/dl (2.5-4.0); Magnesium 1.7 mg/dl (1.7-2.4); Total Protein 6.5 gm/dl (6.0-8.3)
[2023-01-27 19:30] LABS: Troponin I High Sensitivity 11.4 pg/ml (0-14)
[2023-01-27] MEDS ORDERED: SODIUM CHLORIDE 0.9% 1000ML 500 ML IV ONE (19:34)
[2023-01-27] MEDS ORDERED: MAGNESIUM SULFATE / D5W 1 GM/100 ML BAG IV STA (19:34)
[2023-01-27 19:42] LABS: Appearance Urine Clear (Clear); Bacteria Urine Automated Negative (Negative); Bilirubin Urine Negative (Negative); Blood Urine Negative (Negative); Color Urine Dark Yellow; Epithelial Cell Urine Auto >30 /lpf (0-5); Glucose Urine UA Negative (Negative); Ketones Urine Trace (Negative); Leukocyte Esterase Urine 1+ (Negative); Nitrite Urine Negative (Negative); Protein Urine 1+ (Negative); RBC Urine Automated 0-4 /hpf (0-4); Specific Gravity Urine 1.041 (1.000-1.030); Urobilinogen Urine Negative (Negative); pH Urine 5.5 (4.5-7.5)
--- NOTE | 2023-01-27 19:48 | History & Physical Report ---
Date of Service January 27, 2023 Assessment & Plan (1) Stroke-like symptoms: Plan: 82-year-old female with past medical history of CAD, HFpEF, cardiomyopathy s/o BiV ICD, A. fib s/p ablation, pulmonary hypertension, hypercholesterolemia, DM2, stroke and hypothyroidism who is presenting for stroke like symptoms. #Stroke like symptoms #H/o stroke -presented with nonspecific weakness and dysarthria which have been improving since arrival. TNK deferred since pt already on Xarelto. CT without evidence of acute stroke. Pt does have h/o stroke from a few years back but has been doing well since on ASA and xarelto. -aspiration and fall precautions -neuro check q2h -MRI pending -speech eval pending, NPO till then -consider neuro consult due to possible failure on Xarelto -Hold entresto to allow for permissive HTN over 24-48 hours. Will cont. metoprolol due to afib. -cont. statin, ASA, xarelto #Afib #H/o biventricular ICD -cont. xarelto, metoprolol #HFpEF -cont. lasix, metoprolol, potassium #HTN #CAD -cont. ASA, statin, imdur, metoprolol -hold entresto to allow permissive HTN as above #Hypothyroidism -cont. Synthroid #Insomnia -cont. seroquel #DM2 -hold home meds -placed on SSI DVT ppx: SCDs. Resume xarelto after speech eval FEN/GI: NPO until speech eval Code Status: Full Dispo: PCU (2) Cerebrovascular disease: (3) Dysarthria: (4) Atrial fibrillation with rapid ventricular response: (5) ICD (implantable cardioverter-defibrillator), biventricular, in situ: (6) Cardiomyopathy: (7) CAD in [place] artery: (8) Chronic diastolic congestive heart failure: (9) Chronic kidney disease (CKD), stage III (moderate): (10) Diabetes mellitus type 2 with complications: (11) Hypercholesterolemia: History of Present Illness Chief Complaint: 82 yo female with PMHx of Primary Care Provider: Chaz Borges, III, [employer] ENG[employer] MECH[employer]IC 82-year-old female with past medical history of CAD, HFpEF, cardiomyopathy s/o BiV ICD, A. fib s/p ablation, pulmonary hypertension, hypercholesterolemia, DM2, stroke and hypothyroidism who is presenting for stroke like symptoms. and son at bedside who help provide history. Pt woke up around 5pm from a nap and the noticed she was having trouble using her walker as well as sitting down. They could not understand her speech. She does have h/o stroke a few years back and has been doing well since. Compliant with medications at home. Did take her home xarelto this morning for afib. Denies fever, headache, chest pain, sob, abd pain, N/V/D, falls. Allergies Allergy/AdvReac Type Severity Reaction Status Date / Time Penicillins Allergy Severe RASH,SWELLI Verified 01/27/23 18:59 NG Home Medications Medication Instructions Recorded Confirmed Type potassium chloride 20 mEq 20 meq PO BID 09/12/18 01/27/23 History tablet,extended release atorvastatin 40 mg tablet 40 mg PO HS #90 tabs 08/23/21 01/27/23 Rx levothyroxine 50 mcg tablet 50 mcg PO DAILY #90 tabs 08/29/21 01/27/23 Rx Wheeled Walker #1 ea 03/02/22 01/27/23 Rx sacubitril 24 mg-valsartan 26 mg 1 tab PO BID #180 tabs 05/25/22 01/27/23 Rx tablet (Entresto) metoprolol succinate 100 mg 100 mg PO DAILY #90 tabs 07/31/22 01/27/23 Rx tablet,extended release 24 hr isosorbide mononitrate 30 mg 30 mg PO DAILY #90 tabs 08/14/22 01/27/23 Rx tablet,extended release 24 hr sitagliptin phosphate 50 mg tablet 50 mg PO DAILY #90 tabs 08/31/22 01/27/23 Rx furosemide 40 mg tablet (Lasix) 40 mg PO BID 11/05/22 01/27/23 History aspirin 81 mg tablet,delayed 81 mg PO QAM #30 tabs 11/10/22 01/27/23 Rx release cyanocobalamin (vitamin B-12) 1,000 mcg PO DAILY #30 caps 11/10/22 01/27/23 Rx 1,000 mcg capsule insulin glargine U-300 conc 300 12 unit (0.04 mL) subcut BID #1.5 11/10/22 01/27/23 Rx unit/mL (1.5 mL) subcutaneous pen mL (Toujeo SoloStar U-300 Insulin) rivaroxaban 15 mg tablet (Xarelto) 15 mg PO DAILY #30 tabs 11/10/22 01/27/23 Rx blood sugar diagnostic #100 ea 11/13/22 01/27/23 Rx blood-glucose meter (OneTouch #1 ea 11/13/22 01/27/23 Rx Ultra2 Meter) lancets 30 gauge (OneTouch Delica #100 ea 11/13/22 01/27/23 Rx Plus Lancet) quetiapine 25 mg tablet (Seroquel) 12.5 mg PO HS #45 tabs 11/20/22 01/27/23 Rx metformin 500 mg tablet 500 mg PO BID #180 tabs 01/12/23 01/27/23 Rx Past Med/Surg History Medical History Anticoagulant long-term use Atrial fibrillation CAD in [place] artery Cardiomyopathy Chronic diastolic congestive heart failure Chronic kidney disease (CKD), stage III (moderate) Cystocele 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 Diabetic peripheral neuropathy Diabetic retinopathy, nonproliferative Digoxin toxicity HTN (hypertension) Hypercholesterolemia Hypothyroidism Kidney stones LBBB (left bundle branch block) Mitral regurgitation Multiple joint pain Nocturnal hypoxia Psoriasis Pulmonary hypertension Restrictive lung disease Tricuspid valve insufficiency Surgical History History of appendectomy History of cholecystectomy History of hysterectomy S/P AV bibi ablation Status post implantation of automatic cardioverter/defibrillator (AICD) Status post implantation of automatic cardioverter/defibrillator (AICD) 09[facility] Family History Family/Other Cancer Mother Diabetes Myocardial infarction Other Prostate cancer Denies family history of Ovarian cancer Breast cancer Colorectal cancer Social History Smoking Status: Unknown if ever smoked Second Hand Exposure: No; Hx Alcohol Use: No Hx Substance Use: No Preferred Language: Syriac Communication Ability: Effective Visual Impairment: No Limitations Hearing Ability: 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 Beliefs That Will Affect Care: None marital status: Current Living Situation: Spouse and Family Current Living Situation Comment: son and current occupational status: retired Other Information That Helps Us Care for You: No Feels Safe at Home: Yes Safety Concerns: Feels Safe At This Time Childhood Exposure to Second-Hand Smoke: No Diet Comment: diabetic Dental Care, Regularly: No Physical Activity Frequency: 1-2 Times per Week Seatbelt Use: sometimes Assistive Devices: Cane, Denture - Upper, Denture - Lower, Glasses and Walker Review of Systems Review of Systems: All systems reviewed & are unremarkable except as noted in HPI & below Physical Exam Physical Exam: Constitutional: in no acute distress, pleasant. AOx3. Vitals as above. HEENT: No scleral injection or discharge. Moist mucous membranes. Neck: Supple without lymphadenopathy or thyromegaly. Trachea midline. Lungs: Clear to auscultation bilaterally with good effort. Cardiac: Regular rate and rhythm. No murmurs.Trace pedal edema. 2+ distal peripheral pulses. Abdomen: Soft, nontender, and nondistended.No guarding. No hepatosplenomegaly. MSK: No cyanosis or clubbing. Skin: No rashes, warm, dry. Neurologic: Speech was thick and slow but apparently improved from previous. There is no drift in the upper extremities.Weak with straight leg raise bilaterally otherwise 5/5 extremity strength. Results & Data Results & Data Vital Signs (Past 12 Hours) Vital Signs Temp Pulse Resp BP Pulse Ox O2 Del Method 01/27/23 19:10 187/96 H 01/27/23 19:10 70 23 96 01/27/23 19:03 77 17 01/27/23 19:03 79 01/27/23 18:23 36.6 C 72 18 169/86 H 95 Room Air Laboratory Results Laboratory Results WBC 10.14 K/ul (4.8-10.8) 01/27/23 18:54 RBC 4.66 M/uL (4.20-5.40) 01/27/23 18:54 Hgb 13.7 g/dl (12.0-16.0) 01/27/23 18:54 POC Hgb 14.6 g/dl (12.0-16.0) 01/27/23 18:56 Hct 42.4 % (37.0-47.0) 01/27/23 18:54 POC Hct 43 % (37-47) 01/27/23 18:56 MCV 91.0 fL (80.0-100.0) 01/27/23 18:54 MCH 29.4 pg (25.0-34.0) 01/27/23 18:54 MCHC 32.3 g/dL (32.0-36.0) 01/27/23 18:54 RDW Std Deviation 48.0 fL (36.4-46.3) H 01/27/23 18:54 RDW Coeff of Luana 14.5 % (11.5-14.5) 01/27/23 18:54 Plt Count 200 K/uL (130-400) 01/27/23 18:54 MPV 11.5 fL (9.4-12.4) 01/27/23 18:54 Immature Gran % (Auto) 0.4 % 01/27/23 18:54 Neut % (Auto) 67.4 % 01/27/23 18:54 Lymph % (Auto) 22.8 % 01/27/23 18:54 Routt % (Auto) 5.9 % 01/27/23 18:54 Eos % (Auto) 3.0 % 01/27/23 18:54 Baso % (Auto) 0.5 % 01/27/23 18:54 Neut # (Auto) 6.84 K/uL (1.40-6.50) H 01/27/23 18:54 Lymph # (Auto) 2.31 K/uL (1.2-3.4) 01/27/23 18:54 Routt # (Auto) 0.60 K/uL (0.11-0.59) H 01/27/23 18:54 Eos # (Auto) 0.30 K/uL (0-0.50) 01/27/23 18:54 Baso # (Auto) 0.05 K/uL (0-0.2) 01/27/23 18:54 Immature Gran # (Auto) 0.04 K/uL (0.01-0.20) 01/27/23 18:54 PT 11.9 Seconds (9.0-12.0) 01/27/23 18:54 INR 1.1 (0.9-1.1) 01/27/23 18:54 APTT 25.5 Seconds (21.0-31.0) 01/27/23 18:54 PTT Ratio 0.9 01/27/23 18:54 POC Sodium 138 mmol/L (135-144) 01/27/23 18:56 Sodium 136 mmol/L (136-145) 01/27/23 18:54 POC Potassium 3.9 mmol/L (3.3-5.0) 01/27/23 18:56 Potassium 4.0 mmol/L (3.5-5.1) 01/27/23 18:54 POC Chloride 97 mmol/L (101-112) L 01/27/23 18:56 Chloride 101 mmol/L (98-107) 01/27/23 18:54 Carbon Dioxide 30 mmol/L (21-32) 01/27/23 18:54 POC Total CO2 29 mmol/L (24-31) 01/27/23 18:56 Anion Gap 5 (3-11) 01/27/23 18:54 POC Anion Gap 17.0 mmol/L (16-25) 01/27/23 18:56 POC BUN 27 mg/dl (7-18) H 01/27/23 18:56 BUN 29 mg/dl (6-23) H 01/27/23 18:54 Creatinine 0.97 mg/dl (0.6-1.2) 01/27/23 18:54 POC Creatinine 1.0 mg/dl (0.6-1.3) 01/27/23 18:56 Est Cr Clr Drug Dosing 41.9 ml/min 01/27/23 18:54 Est GFR ( Amer) 62.6 ml/min 01/27/23 18:54 Est GFR (Non-Af Amer) 54.0 ml/min 01/27/23 18:54 BUN/Creatinine Ratio 29.9 (10-20) H 01/27/23 18:54 Glucose 206 mg/dl (70-99(Fasting)) H 01/27/23 18:54 POC Glucose 184 mg/dl (70-99) H 01/27/23 18:53 POC Glucose (other) 196 mg/dl (70-99) H 01/27/23 18:56 Calcium 10.1 mg/dl (8.6-10.3) 01/27/23 18:54 POC Ioniz Calcium Nash 1.30 mmol/l (1.12-1.32) 01/27/23 18:56 Magnesium 1.7 mg/dl (1.7-2.4) 01/27/23 18:54 Total Bilirubin 1.4 mg/dl (0.2-1.0) H 01/27/23 18:54 AST 17 U/L (13-39) 01/27/23 18:54 ALT 17 U/L (7-52) 01/27/23 18:54 Alkaline Phosphatase 150 U/L (34-104) H 01/27/23 18:54 Troponin I High Sens 11.4 pg/ml (0-14) 01/27/23 18:54 Total Protein 6.5 gm/dl (6.0-8.3) 01/27/23 18:54 Albumin 3.9 gm/dl (3.4-5.0) 01/27/23 18:54 Globulin 2.6 gm/dl (2.5-4.0) 01/27/23 18:54 Albumin/Globulin Ratio 1.5 (0.9-2) 01/27/23 18:54 Urine Color Dark Yellow 01/27/23 19:30 Urine Appearance Clear (Clear) 01/27/23 19:30 Urine pH 5.5 (4.5-7.5) 01/27/23 19:30 Ur Specific [place] 1.041 (1.000-1.030) H 01/27/23 19:30 Urine Protein 1+ (Negative) H 01/27/23 19:30 Urine Glucose (UA) Negative (Negative) 01/27/23 19:30 Urine Ketones Trace (Negative) H 01/27/23 19:30 Urine Blood Negative (Negative) 01/27/23 19:30 Urine Nitrite Negative (Negative) 01/27/23 19:30 Urine Bilirubin Negative (Negative) 01/27/23 19:30 Urine Urobilinogen Negative (Negative) 01/27/23 19:30 Ur Leukocyte Esterase 1+ (Negative) H 01/27/23 19:30 Urine WBC (Auto) 5-10 /hpf (0-5) H 01/27/23 19:30 Urine RBC (Auto) 0-4 /hpf (0-4) 01/27/23 19:30 U Hyaline Cast (Auto) 1-5 /lpf (0-5) 01/27/23 19:30 U Epithel Cells (Auto) >30 /lpf (0-5) H 01/27/23 19:30 Urine Bacteria (Auto) Negative (Negative) 01/27/23 19:30 SARS-CoV-2, RNA, NAAT NEGATIVE (NEGATIVE) 01/27/23 Unknown Impressions Chest X-Ray 01/27/23 18:24 XR chest 1V portable CLINICAL HISTORY: neuro deficit, acute stroke suspected TECHNIQUE: Single frontal radiograph of the chest was obtained. Comparison: Comparison is made to chest radiograph 11/05/2022 FINDINGS: Pacemaker defibrillator is seen. Calcified aortic knob is seen. There is prominence and cephalization of the vasculature with Jeffrey B lines seen. Lungs are underinflated. IMPRESSION: Cardiomegaly and moderate pulmonary edema. ACT 112: Negative or not required by law. Electronically signed by: Papo Stapleton M.D. 01/27/2023 7:[address] 01/27/23 18:24 CT angio neck with con, CT angio head w con, CT head/brain wo con CLINICAL HISTORY: neuro deficit, acute stroke suspected TECHNIQUE: Contiguous axial CT images of the head were acquired from the base of the skull to the vertex without intravenous contrast administration. CT angiography of the head and neck was performed following intravenous administration of iodinated contrast. Coronal and sagittal MIPS were obtained from the axial data set and were submitted for review. Automated dose lowering techniques and/or adjustment according to patient size were utilized for this examination. All measurements were calculated based on NASCET criteria. CT DOSE: 765.95 mGy.cm (accession [id number]), 614.27 mGy.cm (accession [id number]) Comparison: Comparison is made to MRI brain 12/03/2019 FINDINGS: CT head: Areas of decreased attenuation are present in the periventricular and subcortical white matter bilaterally consistent with small vessel ischemic disease. Generalized cerebral atrophy with commensurate enlargement of the ventricles, sulci, and cisterns is also present. There is no acute intracranial hemorrhage or evidence of acute territorial infarction. No shift of the midline structures, mass effect, or extra-axial abnormalities are shown. Atherosclerotic calcifications are present in the intracranial segments of the internal carotid arteries. Right insular hypodensity is noted which may represent old infarct. Mediastinal lymph nodes measure up to 11 mm in diameter. CTA Neck: A 3 vessel aortic arch is shown. There is no significant atherosclerotic plaque in the aortic arch or the origins of the innominate, left common carotid, and left subclavian arteries. There is nonhemodynamically significant stenosis of the left greater than right internal carotid arteries at the carotid bulbs. The left vertebral artery is dominant. CTA Head: The anterior and posterior cerebral circulations are patent. origin of the right posterior cerebral artery is seen. IMPRESSION: 1. No acute intracranial hemorrhage, evidence of acute territorial infarction, or other acute intracranial disease process. 2. No occlusion, hemodynamically significant stenosis, or dissection in the major cervical arteries. 3. No occlusion, hemodynamically significant stenosis, aneurysm, dissection, or arteriovenous malformation in the major intracranial arteries. Assessment of stenosis of the internal carotid arteries is based on NASCET criteria. ACT 112: Negative or not required by law. Electronically signed by: Papo Stapleton M.D. 01/27/2023 7:11 PM Head CTA 01/27/23 18:24 CT angio neck with con, CT angio head w con, CT head/brain wo con CLINICAL HISTORY: neuro deficit, acute stroke suspected TECHNIQUE: Contiguous axial CT images of the head were acquired from the base of the skull to the vertex without intravenous contrast administration. CT angiography of the head and neck was performed following intravenous administration of iodinated contrast. Coronal and sagittal MIPS were obtained from the axial data set and were submitted for review. Automated dose lowering techniques and/or adjustment according to patient size were utilized for this examination. All measurements were calculated based on NASCET criteria. CT DOSE: 765.95 mGy.cm (accession [id number]), 614.27 mGy.cm (accession [id number]) Comparison: Comparison is made to MRI brain 12/03/2019 FINDINGS: CT head: Areas of decreased attenuation are present in the periventricular and subcortical white matter bilaterally consistent with small vessel ischemic d isease. Generalized cerebral atrophy with commensurate enlargement of the ventricles, sulci, and cisterns is also present. There is no acute intracranial hemorrhage or evidence of acute territorial infarction. No shift of the midline structures, mass effect, or extra-axial abnormalities are shown. Atherosclerotic calcifications are present in the intracranial segments of the internal carotid arteries. Right insular hypodensity is noted which may represent old infarct. Mediastinal lymph nodes measure up to 11 mm in diameter. CTA Neck: A 3 vessel aortic arch is shown. There is no significant atherosclerotic plaque in the aortic arch or the origins of the innominate, left common carotid, and left subclavian arteries. There is nonhemodynamically significant stenosis of the left greater than right internal carotid arteries at the carotid bulbs. The left vertebral artery is dominant. CTA Head: The anterior and posterior cerebral circulations are patent. origin of the right posterior cerebral artery is seen. IMPRESSION: 1. No acute intracranial hemorrhage, evidence of acute territorial infarction, or other acute intracranial disease process. 2. No occlusion, hemodynamically significant stenosis, or dissection in the major cervical arteries. 3. No occlusion, hemodynamically significant stenosis, aneurysm, dissection, or arteriovenous malformation in the major intracranial arteries. Assessment of stenosis of the internal carotid arteries is based on NASCET criteria. ACT 112: Negative or not required by law. Electronically signed by: Papo Stapleton M.D. 01/27/2023 7:11 PM Neck CTA 01/27/23 18:24 CT angio neck with con, CT angio head w con, CT head/brain wo con CLINICAL HISTORY: neuro deficit, acute stroke suspected TECHNIQUE: Contiguous axial CT images of the head were acquired from the base of the skull to the vertex without intravenous contrast administration. CT angiography of the head and neck was performed following intravenous administration of iodinated contrast. Coronal and sagittal MIPS were obtained from the axial data set and were submitted for review. Automated dose lowering techniques and/or adjustment according to patient size were utilized for this examination. All measurements were calculated based on NASCET criteria. CT DOSE: 765.95 mGy.cm (accession [id number]), 614.27 mGy.cm (accession [id number]) Comparison: Comparison is made to MRI brain 12/03/2019 FINDINGS: CT head: Areas of decreased attenuation are present in the periventricular and subcortical white matter bilaterally consistent with small vessel ischemic disease. Generalized cerebral atrophy with commensurate enlargement of the ventricles, sulci, and cisterns is also present. There is no acute intracranial hemorrhage or evidence of acute territorial infarction. No shift of the midline structures, mass effect, or extra-axial abnormalities are shown. Atherosclerotic calcifications are present in the intracranial segments of the internal carotid arteries. Right insular hypodensity is noted which may represent old infarct. Mediastinal lymph nodes measure up to 11 mm in diameter. CTA Neck: A 3 vessel aortic arch is shown. There is no significant atherosclerotic plaque in the aortic arch or the origins of the innominate, left common carotid, and left subclavian arteries. There is nonhemodynamically significant stenosis of the left greater than right internal carotid arteries at the carotid bulbs. The left vertebral artery is dominant. CTA Head: The anterior and posterior cerebral circulations are patent. origin of the right posterior cerebral artery is seen. IMPRESSION: 1. No acute intracranial hemorrhage, evidence of acute territorial infarction, or other acute intracranial disease process. 2. No occlusion, hemodynamically significant stenosis, or dissection in the major cervical arteries. 3. No occlusion, hemodynamically significant stenosis, aneurysm, dissection, or arteriovenous malformation in the major intracranial arteries. Assessment of stenosis of the internal carotid arteries is based on NASCET criteria. ACT 112: Negative or not required by law. Electronically signed by: Papo Stapleton M.D. 01/27/2023 7:11 PM Supervising Physician Co-Signing Physician Notes Attending addendum: I have physically seen this patient, have supervised the medical residents activities, and agree with the H&P unless as otherwise noted. Assessment and Plan: Strokelike symptoms/history of CVA- CT head negative, CTA head and neck all negative for acute events The patient will be admitted to telemetry for serial cardiac enzymes, serial EKG's, cardiac rhythm monitoring and a 2-D echocardiogram with Dopplers. Stroke without tPA order set Patient appears to be back to her baseline for the most part although still a little bit dysarthric, but she has been that way for the over 30 years of abdomen or Continue aspirin and Xarelto We will consult neurology to get their opinion about whether to change the aspirin to clopidogrel Order MRI brain without contrast to further assess No suggestion of seizure activity Permissive hypertension overnight Atrial fibrillation/HFpEF/hypertension/CAD- The patient will be admitted to telemetry for serial cardiac enzymes, serial EKG's, cardiac rhythm monitoring and a 2-D echocardiogram with Dopplers. Continue aspirin, and Xarelto Hold Entresto for permissive hypertension Continue metoprolol for rate control of atrial fib Diabetes mellitus- Hold metformin and Januvia Placed on half dose Toujeo Solostar Placed on Accu-Cheks with NovoLog SSI Hyperlipidemia- Continue atorvastatin 40 mg at bedtime Check a fasting lipid panel and hemoglobin A1c Hypothyroidism- Continue levothyroxine Remaining orders and notations as noted Resident Activity Tracking Resident Involvement: Resident Care Provided Care Provided: Adult Hospital Medicine (6) Cardiomyopathy Cardiomyopathy type: dilated Qualified Code(s): I42.0 - Dilated cardiomyopathy
[2023-01-27 19:50] LABS: INR 1.1 (0.9-1.1); Partial Thromboplastin Ratio 0.9; Partial Thromboplastin Time 25.5 Seconds (21.0-31.0); Prothrombin Time 11.9 Seconds (9.0-12.0)
--- NOTE | 2023-01-27 19:58 | XRay Report ---
XR chest 1V portable CLINICAL HISTORY: neuro deficit, acute stroke suspected TECHNIQUE: Single frontal radiograph of the chest was obtained. Comparison: Comparison is made to chest radiograph 11/05/2022 FINDINGS: Pacemaker defibrillator is seen. Calcified aortic knob is seen. There is prominence and cephalization of the vasculature with Jeffrey B lines seen. Lungs are underinflated. IMPRESSION: Cardiomegaly and moderate pulmonary edema. ACT 112: Negative or not required by law. Electronically signed by: Papo Stapleton M.D. 01/27/2023 7:57 PM
[2023-01-27] MEDS ORDERED: FUROSEMIDE INJ 20 MG/2 ML VIAL IV ONE (22:15)
[2023-01-27] MEDS ORDERED: GLUCOSE 10 TAB/TUBE PO PRN (22:46)
[2023-01-27] MEDS ORDERED: CARBOHYDRATES FOR HYPOGLYCEMIA PO PRN (22:46)
[2023-01-27] MEDS ORDERED: DEXTROSE 50% 50 ML SYRINGE IV PRN (22:46)
[2023-01-27] MEDS ORDERED: GLUCOSE 40% GEL 15 GM TUBE PO PRN (22:46)
[2023-01-27] MEDS ORDERED: GLUCAGON FOR INJ 1 MG VIAL SQ PRN (22:46)
[2023-01-28] MEDS: SODIUM CHLORIDE 0.9% 1000ML 1,000 ML IV SCH ×2 (01:00→11:43)
[2023-01-28] MEDS: FUROSEMIDE 40 MG TAB PO SCH ×3 (01:02→17:52)
[2023-01-28] MEDS: ATORVASTATIN 40 MG TAB PO SCH ×2 (01:02→21:02)
[2023-01-28] MEDS: QUEtiapine FUMARATE 25 MG TABLET PO SCH ×2 (01:03→21:03)
[2023-01-28] MEDS: POTASSIUM CHLORIDE CRTAB 20 MEQ TABCR PO SCH ×3 (01:03→21:03)
[2023-01-28] MEDS ORDERED: FUROSEMIDE 40 MG/4 ML VIAL IV ONE (01:19)
[2023-01-28] MEDS ORDERED: ACETAMINOPHEN 1,000 MG/100 ML VIAL IV PRN (03:04)
[2023-01-28 06:08] LABS: Basophils # (auto) 0.06 K/uL (0-0.2); Basophils % (auto) 0.6 %; Eosinophils % (auto) 3.2 %; Hematocrit (blood only) 42.4 % (37.0-47.0); Hemoglobin 13.9 g/dl (12.0-16.0); Immature Granulocytes # (auto) 0.03 K/uL (0.01-0.20); Immature Granulocytes % (auto) 0.3 %; Lymphocytes # (auto) 2.24 K/uL (1.2-3.4); Lymphocytes % (auto) 23.6 %; Mean Corpuscular Hemoglobin 29.8 pg (25.0-34.0); Mean Corpuscular Hgb Conc 32.8 g/dL (32.0-36.0); Mean Corpuscular Volume 90.8 fL (80.0-100.0); Monocytes # (auto) 0.68 K/uL (0.11-0.59); Monocytes % (auto) 7.2 %; Neutrophils # (auto) 6.17 K/uL (1.40-6.50); Neutrophils % (auto) 65.1 %; Platelet Count 167 K/uL (130-400); RDW Coefficient of Variation 14.5 % (11.5-14.5); RDW Standard Deviation 47.9 fL (36.4-46.3); Red Blood Count 4.67 M/uL (4.20-5.40); White Blood Count 9.48 K/ul (4.8-10.8)
[2023-01-28] MEDS: LEVOTHYROXINE SODIUM 50 MCG TABLET PO SCH (06:17)
[2023-01-28 06:22] LABS: Albumin Globulin Ratio 1.6 (0.9-2); Albumin Level 3.9 gm/dl (3.4-5.0); BUN Creatinine Ratio 28.8 (10-20); Bilirubin,Total 1.5 mg/dl (0.2-1.0); Calcium 9.5 mg/dl (8.6-10.3); Creatinine Clr Calc Pharmacy 50.4 ml/min; Est GFR (African American) 88.3 ml/min; Est GFR (Non-African American) 76.2 ml/min; Globulin 2.4 gm/dl (2.5-4.0); Magnesium 1.8 mg/dl (1.7-2.4); Potassium 3.3 mmol/L (3.5-5.1); Total Protein 6.3 gm/dl (6.0-8.3)
[2023-01-28] MEDS ORDERED: NSS + 20MEQ KCL 20 MEQ/1,000 ML BAG IV SCH (08:00)
--- NOTE | 2023-01-28 08:40 | Electrocardiogram Report ---
Test Reason : Blood Pressure : / mmHG Vent. Rate : 074 BPM Atrial Rate : 394 BPM P-R Int : 000 ms QRS Dur : 128 ms QT Int : 426 ms P-R-T Axes : 000 221 052 degrees QTc Int : 472 ms Poor data quality, interpretation may be adversely affected Ventricular-paced rhythm Abnormal ECG When compared with ECG of 05-NOV-2022 11:56, Vent. rate has decreased BY 17 BPM Confirmed by Elgin Shrestha ([id number]) on 01/28/2023 8:40:25 AM Referred By: REFERRED SELF Confirmed By:Elgin Shrestha
[2023-01-28] MEDS: INSULIN ASPART PER UNIT CHARGE SC SCH ×4 (09:23→21:18)
[2023-01-28] MEDS: ISOSORBIDE MONO EXTENDED REL 30 MG TABCR PO SCH (10:02)
[2023-01-28] MEDS: ASPIRIN 81 MG ECTAB PO SCH (10:02)
[2023-01-28] MEDS: CYANOCOBALAMIN (B-12) 500 MCG TABLET PO SCH (10:02)
[2023-01-28] MEDS: METOPROLOL SUCC 50MG EXT REL TAB PO SCH (10:02)
--- NOTE | 2023-01-28 11:15 | Hospitalist Progress Note ---
Date of Service January 28, 2023 Assessment & Plan (1) Stroke-like symptoms: Plan: 82yo female with a history of CVA, DM2, cardiomyopathy (s/p pacemaker placement), HFpEF, atrial fibrillation (s/p ablation), pulmonary HTN, HLD, CAD, and hypothyroidism presents with a one-day history of stroke-like symptoms. Stroke-like symptoms TNK deferred since patient is already on xarelto CT is without evidence of acute stroke; MRI pending (will likely be 01/29; there is some delay due to patient's pacemaker) Patient's history of prior CVA noted, as well as her history of being on xarelto/ASA Passed bedside swallow study (01/28) Aspiration precautions, fall precautions, neuro checks q2h Continue atorvastatin, ASA, xarelto Hold entresto to allow permissive HTN for 24-48 hours total; continue metoprolol for AF Next steps will depend on MRI findings; will consider switching ASA to plavix; will also consider neurology consult Atrial fibrillation, cardiomyopathy Patient's history of BiV ICD placement noted Rhythm regular at this time, rate well-controlled Continue metoprolol and xarelto as noted above Continue telemetry DM2 HbA1c 6.9% (11/06/22); repeat value ordered Patient's home regimen held on admission Continue BSG checks, sliding-scale insulin, hypoglycemic protocol Hypokalemia Potassium on hospital day two mildly low at 3.3, down from 4.0 on admission NSS + KCl 20mEq @ 80mL/hr (x1 bag) complete Continue KCl 20mEq PO bid Daily BMP Hyperbilirubinemia Appears to be chronic based on record review Patient is without GI symptoms No intervention indicated at this time HFpEF: as noted above, holding entresto to allow for permissive HTN; continue lasix, metoprolol HTN, HLD, CAD: currently allowing permissive HTN; continue home atorvastatin, metoprolol, ASA, imdur Hypothyroidism: continue home synthroid Insomnia: continue seroquel FEN: minced and moist diet, IVF discontinued Code status: full code DVT ppx: home xarelto Held home meds: entresto PT/OT: ordered Case management: following Dispo: PCU, discharge pending further CVA workup and clinical improvement (2) Cerebrovascular disease: (3) Dysarthria: (4) Atrial fibrillation with rapid ventricular response: (5) ICD (implantable cardioverter-defibrillator), biventricular, in situ: (6) Cardiomyopathy: (7) CAD in [place] artery: (8) Chronic diastolic congestive heart failure: (9) Chronic kidney disease (CKD), stage III (moderate): (10) Diabetes mellitus type 2 with complications: (11) Hypercholesterolemia: Admission and Anticipated Discharge Date Admission Date: January 27, 2023 Supervising Physician Co-Signing Physician Notes I personally examined the patient and verified all robbins points of history and exam, discussed case, and agree with decision making with Dr Monten[place]ro ongoing dysarthria, seen by speech and was able to eat lunch. updated on working dx (cerebrovascular ischemia) she expressed understanding "it's old age" vitals noted nad L facial droop and slow, dysarthric speech MRI pending. CBC, lipids, BMP, last A1c CTAs and previous MRI all noted presumed CVA - suspect small vessel (large vessels without tight enough stenosis to be culprit; on DOAC making central embolic unlikely) - await MRI but if confirms small vessel stroke pattern, then likely change aspirin to plavix (given DOAC + age/frailty - probably wouldn't have overlap, or at least as long of overlap - may need to discuss w neuro). Subjective Patient seen and evaluated at bedside this morning. Patient speaks very slowly and is difficult to understand but patient is able to communicate clearly when she takes her time. Patient denies fever, chills, CP, SOB, abdominal pain, nausea, vomiting, lightheadedness, dizziness, change in vision, or other symptoms. Review of Systems Review of Systems: See HPI Physical Exam Physical Exam: Constitutional: well-appearing, no acute distress CV: regular rhythm, no murmur appreciated, extremities well-perfused, no LE edema Resp: CTABL, no wheezes/rales/rhonchi appreciated, no increased work of breathing MSK: UE and LE strength 5/5 bilaterally Neuro: alert, oriented, speech slow and slurred but speech but understandable, mild left-sided facial droop, unable to puff out cheeks d/t left-sided droop Results & Data Results & Data Vital Signs (Past 12 Hours) Vital Signs Temp Pulse Pulse Pulse Resp BP BP 01/28/23 07:47 36.5 C 77 19 182/94 H 01/28/23 06:03 70 01/28/23 03:20 36.7 C 69 16 149/82 H 152/76 H 01/28/23 00:00 70 01/27/23 23:22 36.8 C 77 18 176/98 H Pulse Ox O2 Del Method 01/28/23 07:47 95 Room Air 01/28/23 06:03 01/28/23 03:20 91 Room Air 01/28/23 00:00 01/27/23 23:22 94 Room Air Resident Activity Tracking Resident Involvement: Resident Care Provided Care Provided: Adult Hospital Medicine (6) Cardiomyopathy Cardiomyopathy type: dilated Qualified Code(s): I42.0 - Dilated cardiomyopathy
--- NOTE | 2023-01-28 16:26 | Billing Data ---
Date of Service January 28, 2023 Coding Level of Care Code 77545 SUB INP/OBS CARE
[2023-01-28] MEDS ORDERED: RIVAROXABAN 15 MG TAB PO SCH (16:30)
[2023-01-28] MEDS: RIVAROXABAN 15 MG TAB PO SCH (17:51)
--- NOTE | 2023-01-28 19:31 | Billing Data ---
Date of Service January 28, 2023 Coding Level of Care Code 60163 INT INP/OBS CARE
[2023-01-28] MEDS: ACETAMINOPHEN 325 MG TAB PO PRN (21:58)
[2023-01-28] MEDS ORDERED: OLANZapine 10 MG/2.1 ML SDV IM STA (23:07)
[2023-01-29] MEDS: LEVOTHYROXINE SODIUM 50 MCG TABLET PO SCH (06:19)
[2023-01-29 07:08] LABS: Hematocrit (blood only) 43.3 % (37.0-47.0); Hemoglobin 14.4 g/dl (12.0-16.0); Mean Corpuscular Hemoglobin 29.7 pg (25.0-34.0); Mean Corpuscular Hgb Conc 33.3 g/dL (32.0-36.0); Mean Corpuscular Volume 89.3 fL (80.0-100.0); Mean Platelet Volume 11.6 fL (9.4-12.4); Platelet Count 187 K/uL (130-400); RDW Coefficient of Variation 14.5 % (11.5-14.5); RDW Standard Deviation 47.5 fL (36.4-46.3); Red Blood Count 4.85 M/uL (4.20-5.40); White Blood Count 11.74 K/ul (4.8-10.8)
[2023-01-29 08:06] LABS: BUN Creatinine Ratio 17.6 (10-20); Calcium 9.8 mg/dl (8.6-10.3); Creatinine Clr Calc Pharmacy 43.3 ml/min; Est GFR (African American) 73.4 ml/min; Est GFR (Non-African American) 63.4 ml/min; Potassium 3.7 mmol/L (3.5-5.1)
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
[2023-01-29] MEDS: FUROSEMIDE 40 MG TAB PO SCH ×2 (08:29→17:23)
[2023-01-29] MEDS: ISOSORBIDE MONO EXTENDED REL 30 MG TABCR PO SCH (08:29)
[2023-01-29] MEDS: METOPROLOL SUCC 50MG EXT REL TAB PO SCH (08:29)
[2023-01-29] MEDS: POTASSIUM CHLORIDE CRTAB 20 MEQ TABCR PO SCH ×2 (08:29→22:26)
[2023-01-29] MEDS: CYANOCOBALAMIN (B-12) 500 MCG TABLET PO SCH (08:30)
[2023-01-29] MEDS: INSULIN ASPART PER UNIT CHARGE SC SCH ×4 (08:33→22:24)
[2023-01-29 08:57] LABS: Estimated Average Glucose 220 mg/dl; Hemoglobin A1C 9.3 % (4.5-5.6)
[2023-01-29] MEDS: ASPIRIN 81 MG ECTAB PO SCH (09:54)
[2023-01-29] MEDS ORDERED: OLANZapine 10 MG/2.1 ML SDV IM STA (11:45)
[2023-01-29] MEDS: RIVAROXABAN 15 MG TAB PO SCH (17:23)
[2023-01-29] MEDS: ATORVASTATIN 40 MG TAB PO SCH (22:26)
[2023-01-29] MEDS: QUEtiapine FUMARATE 25 MG TABLET PO SCH (22:26)
[2023-01-30 06:21] LABS: Hematocrit (blood only) 47.4 % (37.0-47.0); Mean Corpuscular Hemoglobin 29.4 pg (25.0-34.0); Mean Corpuscular Hgb Conc 33.8 g/dL (32.0-36.0); Mean Platelet Volume 11.9 fL (9.4-12.4); Platelet Count 214 K/uL (130-400); RDW Coefficient of Variation 14.4 % (11.5-14.5); RDW Standard Deviation 45.8 fL (36.4-46.3); Red Blood Count 5.45 M/uL (4.20-5.40); White Blood Count 12.71 K/ul (4.8-10.8)
[2023-01-30 06:35] LABS: BUN Creatinine Ratio 16.7 (10-20); Calcium 10.4 mg/dl (8.6-10.3); Creatinine Clr Calc Pharmacy 36.1 ml/min; Est GFR (African American) 58.9 ml/min; Est GFR (Non-African American) 50.8 ml/min; Potassium 3.9 mmol/L (3.5-5.1)
[2023-01-30] MEDS: LEVOTHYROXINE SODIUM 50 MCG TABLET PO SCH (06:41)
--- NOTE | 2023-01-30 07:38 | Hospitalist Progress Note ---
Date of Service January 30, 2023 Assessment & Plan (1) Stroke-like symptoms: Plan: 82yo female with a history of CVA, DM2, cardiomyopathy (s/p pacemaker placement), HFpEF, atrial fibrillation (s/p ablation), pulmonary HTN, HLD, CAD, and hypothyroidism presents with a one-day history of stroke-like symptoms. Stroke-like symptoms TNK deferred since patient is already on xarelto CT is without evidence of acute stroke; - MRI :No acute intracranial findings. No change in appearance of the brain since MRI of November 07, 2022. Patient's history of prior CVA noted, as well as her history of being on xarelto/ASA Passed bedside swallow study (01/28) Aspiration precautions, fall precautions, neuro checks q2h Continue atorvastatin, ASA, xarelto helf entresto to allow permissive HTN for 24-48 hours total; continue metoprolol for AF concern this is more delirium/dementia/prior stroke symptoms type picture, will need to contact family for future goals of care Delirium -noted night of 01/28 -likely hospital induced. -received zyprexa 2.5mg IM overnight 01/28, was placed in soft restraints -required zyprexa 2.5mg IM 01/29 -Seroquel 12.5mgs hs scheduled added. follow for oversedation -restraints d/c'd Atrial fibrillation, cardiomyopathy Patient's history of BiV ICD placement noted Rhythm regular at this time, rate well-controlled Continue metoprolol and xarelto as noted above Continue telemetry DM2 HbA1c 9.3% Patient's home regimen held on admission Continue BSG checks, sliding-scale insulin, hypoglycemic protocol Hypokalemia repleted Continue KCl 20mEq PO bid Daily BMP HFpEF: holding entresto, continue lasix, metoprolol, BP currently wnl HTN, HLD, CAD: continue home atorvastatin, metoprolol, ASA, imdur Hypothyroidism: continue home synthroid Insomnia: continue seroquel FEN: minced and moist diet Code status: full code DVT ppx: home xarelto Held home meds: entresto PT/OT: ordered Case management: following Dispo: PCU (2) Cerebrovascular disease: (3) Dysarthria: (4) Atrial fibrillation with rapid ventricular response: (5) ICD (implantable cardioverter-defibrillator), biventricular, in situ: (6) Cardiomyopathy: (7) CAD in [place] artery: (8) Chronic diastolic congestive heart failure: (9) Chronic kidney disease (CKD), stage III (moderate): (10) Diabetes mellitus type 2 with complications: (11) Hypercholesterolemia: Admission and Anticipated Discharge Date Admission Date: January 27, 2023 Supervising Physician Co-Signing Physician Notes Resident Physician Supervision Note: I independently interviewed and examined the patient and verified the orbbins history and physical, reviewed labs and image studies and agree with resident findings and care plan. Subjective Patient seen at bedside sleeping comfortably. Arousable to voice, denies any pain. Still has difficulty with speech, expressive aphasia. Per nursing she has been more tired since zyprexa dose yesterday, restraints were discontinued yesterday. Physical Exam Constitutional: well developed and well nourished ENMT: left sided facial droop Respiratory: normal respiratory effort, lungs clear to auscultation Cardiovascular: Rate/Rhythm: regular rate and regular rhythm Gastrointestinal (Abdomen): Inspection/Auscultation: abdomen normal to inspection Percussion/Palpation: abdomen soft; abdomen nontender Skin: no rashes, warm and dry Neurologic: Speech / Cognition: + expressive aphasia Psychiatric: Orientation: oriented to person Results & Data Results & Data Vital Signs (Past 12 Hours) Vital Signs Temp Pulse Resp BP Pulse Ox O2 Del Method 01/30/23 04:10 36.5 C 70 16 119/71 94 Room Air 01/29/23 20:13 37.0 C 75 22 154/84 H 96 Room Air Resident Activity Tracking Resident Involvement: Resident Care Provided Care Provided: Adult Hospital Medicine (6) Cardiomyopathy Cardiomyopathy type: dilated Qualified Code(s): I42.0 - Dilated cardiomyopathy
[2023-01-30] MEDS: INSULIN ASPART PER UNIT CHARGE SC SCH ×4 (09:02→20:32)
[2023-01-30] MEDS: METOPROLOL SUCC 50MG EXT REL TAB PO SCH (09:45)
[2023-01-30] MEDS: POTASSIUM CHLORIDE CRTAB 20 MEQ TABCR PO SCH ×2 (09:45→20:37)
[2023-01-30] MEDS: FUROSEMIDE 40 MG TAB PO SCH ×2 (09:45→17:47)
[2023-01-30] MEDS: ASPIRIN 81 MG ECTAB PO SCH (09:45)
[2023-01-30] MEDS: CYANOCOBALAMIN (B-12) 500 MCG TABLET PO SCH (09:45)
[2023-01-30] MEDS: ISOSORBIDE MONO EXTENDED REL 30 MG TABCR PO SCH (09:45)
[2023-01-30] MEDS: ACETAMINOPHEN 325 MG TAB PO PRN (11:15)
[2023-01-30] MEDS ORDERED: GADOBUTROL 65ML VIAL IV ONE (16:06)
--- NOTE | 2023-01-30 16:38 | Magnetic Resonance Report ---
MRI OF THE BRAIN WITHOUT AND WITH IV CONTRAST CLINICAL HISTORY: Stroke like symptoms. Slurred speech. COMPARISON STUDY: MRI of the brain November 07, [address] and CTA of the head January 27, 2023. TECHNIQUE: Utilizing a 1.5 Valarie magnet and dedicated coil, multiplanar, multiecho imaging of the br ain was performed pre and postcontrast administration. IV administration of 5.4 mL of Gadavist contr ast was uneventful. FINDINGS: There are no foci of restricted diffusion to suggest acute infarct. No acute intracranial h emorrhage, midline shift or mass effect is present. Ventricular system is unremarkable for age. There is moderate atrophy. White matter T2 hyperintense foci suggest small vessel disease. No intracranial mass or pathologic enhancement is present. Basal cisterns are patent. There are no extra axial colle ctions. Flow-voids for the major intracranial vessels are present. There has been no significant yañez ge in appearance of the brain since MRI of November 07, 2022. IMPRESSION: No acute intracranial findings. No change in appearance of the brain since MRI of November 07, 2022. ACT 112: Negative or not required by law. Electronically signed by: Rick King M.D. 01/30/2023 4:36 PM
[2023-01-30] MEDS: RIVAROXABAN 15 MG TAB PO SCH (17:47)
[2023-01-30] MEDS: LANTUS PER UNIT CHARGE SQ SCH (20:32)
[2023-01-30] MEDS: ATORVASTATIN 40 MG TAB PO SCH (20:37)
[2023-01-30] MEDS: QUEtiapine FUMARATE 25 MG TABLET PO SCH (20:38)
[2023-01-31] MEDS: SODIUM CHLORIDE 0.9% 1000ML 1,000 ML IV SCH ×2 (00:55→12:48)
[2023-01-31] MEDS ORDERED: INSULIN ASPART PER UNIT CHARGE SC SCH (02:00)
[2023-01-31] MEDS: LEVOTHYROXINE SODIUM 50 MCG TABLET PO SCH (06:27)
[2023-01-31 06:42] LABS: Hemoglobin 16.7 g/dl (12.0-16.0); Mean Corpuscular Hemoglobin 29.5 pg (25.0-34.0); Mean Corpuscular Hgb Conc 31.5 g/dL (32.0-36.0); Mean Corpuscular Volume 93.5 fL (80.0-100.0); Platelet Count 182 K/uL (130-400); RDW Coefficient of Variation 14.8 % (11.5-14.5); RDW Standard Deviation 50.9 fL (36.4-46.3); Red Blood Count 5.67 M/uL (4.20-5.40); White Blood Count 13.12 K/ul (4.8-10.8)
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
[2023-01-31] MEDS: POTASSIUM CHLORIDE CRTAB 20 MEQ TABCR PO SCH ×2 (08:33→20:57)
[2023-01-31] MEDS: INSULIN ASPART PER UNIT CHARGE SC SCH ×4 (08:33→20:51)
[2023-01-31] MEDS: LANTUS PER UNIT CHARGE SQ SCH ×2 (08:33→20:52)
[2023-01-31] MEDS: METOPROLOL SUCC 50MG EXT REL TAB PO SCH (08:34)
[2023-01-31] MEDS: FUROSEMIDE 40 MG TAB PO SCH ×2 (08:34→17:46)
[2023-01-31] MEDS: ISOSORBIDE MONO EXTENDED REL 30 MG TABCR PO SCH (08:34)
[2023-01-31] MEDS: CYANOCOBALAMIN (B-12) 500 MCG TABLET PO SCH (08:34)
[2023-01-31] MEDS: ASPIRIN 81 MG ECTAB PO SCH (08:34)
[2023-01-31 15:19] LABS: BUN Creatinine Ratio 22.4 (10-20); Blood Urea Nitrogen 37 mg/dl (6-23); Carbon Dioxide 27 mmol/L (21-32); Chloride 105 mmol/L (98-107); Creatinine Clr Calc Pharmacy 22.3 ml/min; Est GFR (African American) 32.9 ml/min; Est GFR (Non-African American) 28.4 ml/min; Glucose 148 mg/dl (70-99(Fasting))
[2023-01-31 16:20] LABS: Potassium 4.6 mmol/L (3.5-5.1)
[2023-01-31] MEDS: RIVAROXABAN 15 MG TAB PO SCH (17:46)
[2023-01-31] MEDS: ATORVASTATIN 40 MG TAB PO SCH (20:56)
[2023-01-31] MEDS: QUEtiapine FUMARATE 25 MG TABLET PO SCH (20:56)
[2023-01-31] MEDS: ACETAMINOPHEN 325 MG TAB PO PRN (20:56)
[2023-01-31] MEDS ORDERED: HYDROmorphone INJ 0.5 MG/0.5 ML SYR IV STA (23:25)
[2023-02-01] MEDS: SODIUM CHLORIDE 0.9% 1000ML 1,000 ML IV SCH ×2 (01:02→13:48)
[2023-02-01] MEDS: LEVOTHYROXINE SODIUM 50 MCG TABLET PO SCH (05:57)
[2023-02-01] MEDS: INSULIN ASPART PER UNIT CHARGE SC SCH ×4 (09:20→20:38)
[2023-02-01] MEDS: LANTUS PER UNIT CHARGE SQ SCH ×3 (09:20→20:38)
--- NOTE | 2023-02-01 09:54 | Hospitalist Progress Note ---
Date of Service February 01, 2023 Assessment & Plan (1) Stroke-like symptoms: Plan: 82yo female with a history of CVA, DM2, cardiomyopathy (s/p pacemaker placement), HFpEF, atrial fibrillation (s/p ablation), pulmonary HTN, HLD, CAD, and hypothyroidism presents with a one-day history of stroke-like symptoms. Stroke-like symptoms CT is without evidence of acute stroke; - MRI :No acute intracranial findings. No change in appearance of the brain since MRI of November 07, 2022. Patient's history of prior CVA noted, as well as her history of being on xarelto/ASA Passed bedside swallow study (01/28) Aspiration precautions, fall precautions, neuro checks q2h Continue atorvastatin, ASA, xarelto - Patient medically optimized. presentation possibly from TIA -currently awaiting rehab Delirium -noted night of 01/28 -likely hospital induced. -received zyprexa 2.5mg IM overnight 01/28, was placed in soft restraints -required zyprexa 2.5mg IM 01/29 -Seroquel 12.5mgs hs scheduled added. follow for oversedation -restraints d/c'd -resolved as of 01/31 Atrial fibrillation, cardiomyopathy Patient's history of BiV ICD placement noted Rhythm regular at this time, rate well-controlled Continue metoprolol and xarelto as noted above Continue telemetry DM2 HbA1c 9.3% Patient's home regimen held on admission Continue BSG checks, sliding-scale insulin, hypoglycemic protocol Goals of Care -patient has a living will filed with her electronics recycler, would like to make decisions if she is ever incapacitated -patient and agree for physical therapy at this time -patient wonders if she could see speech therapy to speak more clearly HFpEF: holding entresto, continue lasix, metoprolol, BP currently wnl HTN, HLD, CAD: continue home atorvastatin, metoprolol, ASA, imdur Hypothyroidism: continue home synthroid Insomnia: continue seroquel FEN: minced and moist diet Code status: full code DVT ppx: home xarelto Held home meds: entresto PT/OT: ordered Case management: looking for SNF rehab Dispo: PCU (2) Cerebrovascular disease: (3) Dysarthria: (4) Atrial fibrillation with rapid ventricular response: (5) ICD (implantable cardioverter-defibrillator), biventricular, in situ: (6) Cardiomyopathy: (7) CAD in [place] artery: (8) Chronic diastolic congestive heart failure: (9) Chronic kidney disease (CKD), stage III (moderate): (10) Diabetes mellitus type 2 with complications: (11) Hypercholesterolemia: Admission and Anticipated Discharge Date Admission Date: January 27, 2023 Supervising Physician Co-Signing Physician Notes Resident Physician Supervision Note: I independently interviewed and examined the patient and verified the robbins history and physical, reviewed labs and image studies and agree with resident findings and care plan. Subjective Patient seen at bedside, sleeping comfortably. Per nursing patient had some mild confusion when woken up in the middle of the night, but mentates better when she has more time to wake up. Physical Exam Constitutional: WD/WN, vitals as above Eyes: PERRL, conjunctivae normal, anicteric sclerae ENMT: difficulty moving mouth and tongue to pronounce certain words Neck: trachea midline, no thyromegaly Respiratory: normal respiratory effort, lungs clear to auscultation Cardiovascular: Rate/Rhythm: regular rate and regular rhythm Gastrointestinal (Abdomen): Inspection/Auscultation: abdomen normal to inspection Percussion/Palpation: abdomen soft; abdomen nontender Skin: no rashes, warm and dry Results & Data Results & Data Vital Signs (Past 12 Hours) Vital Signs Temp Pulse Pulse Resp BP Pulse Ox O2 Del Method 02/01/23 08:30 36.3 C L 70 18 140/76 97 Room Air 02/01/23 08:00 70 02/01/23 08:00 Room Air 02/01/23 02:46 36.5 C 81 20 116/73 96 Room Air 01/31/23 23:00 36.6 C 70 18 114/69 94 Room Air 01/31/23 22:51 70 Resident Activity Tracking Resident Involvement: Resident Care Provided Care Provided: Adult Hospital Medicine (6) Cardiomyopathy Cardiomyopathy type: dilated Qualified Code(s): I42.0 - Dilated cardiomyopathy
[2023-02-01] MEDS: POTASSIUM CHLORIDE CRTAB 20 MEQ TABCR PO SCH ×2 (10:12→20:26)
[2023-02-01] MEDS: ISOSORBIDE MONO EXTENDED REL 30 MG TABCR PO SCH (10:12)
[2023-02-01] MEDS: FUROSEMIDE 40 MG TAB PO SCH ×2 (10:12→17:40)
[2023-02-01] MEDS: METOPROLOL SUCC 50MG EXT REL TAB PO SCH (10:13)
[2023-02-01] MEDS: CYANOCOBALAMIN (B-12) 500 MCG TABLET PO SCH (10:13)
[2023-02-01] MEDS: ASPIRIN 81 MG ECTAB PO SCH (10:13)
[2023-02-01 10:59] LABS: Hematocrit (blood only) 45.6 % (37.0-47.0); Mean Corpuscular Hemoglobin 29.8 pg (25.0-34.0); Mean Corpuscular Hgb Conc 32.9 g/dL (32.0-36.0); Mean Corpuscular Volume 90.7 fL (80.0-100.0); Mean Platelet Volume 11.6 fL (9.4-12.4); Platelet Count 185 K/uL (130-400); RDW Coefficient of Variation 14.8 % (11.5-14.5); RDW Standard Deviation 48.9 fL (36.4-46.3); Red Blood Count 5.03 M/uL (4.20-5.40); White Blood Count 13.05 K/ul (4.8-10.8)
[2023-02-01 11:09] LABS: BUN Creatinine Ratio 35.4 (10-20); Calcium 9.4 mg/dl (8.6-10.3); Creatinine Clr Calc Pharmacy 44.9 ml/min; Est GFR (African American) 76.7 ml/min; Est GFR (Non-African American) 66.2 ml/min; Potassium 4.5 mmol/L (3.5-5.1)
[2023-02-01] MEDS: RIVAROXABAN 15 MG TAB PO SCH (17:40)
[2023-02-01] MEDS: ATORVASTATIN 40 MG TAB PO SCH (20:26)
[2023-02-01] MEDS: QUEtiapine FUMARATE 25 MG TABLET PO SCH (20:27)
[2023-02-02] MEDS: LEVOTHYROXINE SODIUM 50 MCG TABLET PO SCH (05:24)
[2023-02-02] MEDS: SODIUM CHLORIDE 0.9% 1000ML 1,000 ML IV SCH ×2 (05:24→16:39)
[2023-02-02 06:28] LABS: Hematocrit (blood only) 46.5 % (37.0-47.0); Hemoglobin 14.9 g/dl (12.0-16.0); Mean Corpuscular Hemoglobin 29.1 pg (25.0-34.0); Mean Corpuscular Volume 90.8 fL (80.0-100.0); Mean Platelet Volume 11.8 fL (9.4-12.4); Platelet Count 163 K/uL (130-400); RDW Coefficient of Variation 14.3 % (11.5-14.5); RDW Standard Deviation 47.7 fL (36.4-46.3); Red Blood Count 5.12 M/uL (4.20-5.40); White Blood Count 11.51 K/ul (4.8-10.8)
[2023-02-02 06:45] LABS: BUN Creatinine Ratio 29.3 (10-20); Calcium 9.9 mg/dl (8.6-10.3); Creatinine Clr Calc Pharmacy 49.1 ml/min; Est GFR (African American) 85.4 ml/min; Est GFR (Non-African American) 73.7 ml/min; Potassium 4.1 mmol/L (3.5-5.1)
--- NOTE | 2023-02-02 08:08 | Hospitalist Progress Note ---
Date of Service February 02, 2023 Assessment & Plan (1) Stroke-like symptoms: Plan: 82yo female with a history of CVA, DM2, cardiomyopathy (s/p pacemaker placement), HFpEF, atrial fibrillation (s/p ablation), pulmonary HTN, HLD, CAD, and hypothyroidism presents with a one-day history of stroke-like symptoms. Stroke-like symptoms CT is without evidence of acute stroke;MRI: no acute intracranial findings. No change in appearance of the brain since MRI of November 07, 2022. Patient's history of prior CVA noted, as well as her history of being on xarelto/ASA Passed bedside swallow study (01/28) Aspiration precautions, fall precautions, neuro checks q2h Continue atorvastatin, ASA, xarelto Awaiting inpatient rehab placement Delirium 01/28: patient noted with new delirium in the evening, likely hospital delirium; required zyprexa IM and soft restraints Has at times required zyprexa IM and soft restraints; restraints have been Seroquel 12.5mg qHS scheduled Delirium resolved as of 01/31; will continue to monitor AYAD - Due to poor PO intake while delirious. 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, would like to make decisions if she is ever incapacitated Patient and agree for physical therapy at this time Patient wonders if she could see speech therapy to speak more clearly HFpEF: holding entresto, continue lasix, metoprolol HTN, HLD, CAD: continue home atorvastatin, metoprolol, ASA, imdur Hypothyroidism: continue home levothyroxine Insomnia: continue seroquel FEN: DM2+ minced and moist diet, NSS @ 80mL/hr Code status: full code DVT ppx: home xarelto Held home meds: ger PT/OT: ordered Case management: following Dispo: downgrade from PCU to med/surg; discharge pending inpatient rehab placement (2) Cerebrovascular disease: (3) Dysarthria: (4) Atrial fibrillation with rapid ventricular response: (5) ICD (implantable cardioverter-defibrillator), biventricular, in situ: (6) Cardiomyopathy: (7) CAD in [place] artery: (8) Chronic diastolic congestive heart failure: (9) Chronic kidney disease (CKD), stage III (moderate): (10) Diabetes mellitus type 2 with complications: (11) Hypercholesterolemia: Admission and Anticipated Discharge Date Admission Date: January 27, 2023 Supervising Physician Co-Signing Physician Notes Resident Physician Supervision Note: I independently interviewed and examined the patient and verified the robbins history and physical, reviewed labs and image studies and agree with resident findings and care plan. Subjective Patient seen and evaluated at bedside this morning. Patient feels well and has no acute complaints. Patient has been eating and drinking well. Denies pain or discomfort. Patient is eager to get to rehab. Patient denies CP, SOB, abdominal pain, nausea, vomiting, lightheadedness, dizziness, and diarrhea. Review of Systems Review of Systems: See HPI Physical Exam Physical Exam: Constitutional: well-appearing, no acute distress CV: regular rhythm, no murmur appreciated, extremities well-perfused, no LE edema Resp: CTABL, no wheezes/rales/rhonchi appreciated, no increased work of breathing Neuro: alert, oriented, speech slow and garbled, thought process linear and coherent, no facial droop appreciated, no other focal deficit appreciated Results & Data Results & Data Vital Signs (Past 12 Hours) Vital Signs Temp Pulse Pulse Pulse Resp BP BP 02/02/23 05:43 36.5 C 112 H 16 182/95 H 02/02/23 01:23 70 02/01/23 22:38 36.7 C 71 16 150/79 H 02/01/23 20:20 36.5 C 70 16 127/72 Pulse Ox O2 Del Method 02/02/23 05:43 94 Room Air 02/02/23 01:23 02/01/23 22:38 97 Room Air 02/01/23 20:20 95 Room Air Resident Activity Tracking Resident Involvement: Resident Care Provided Care Provided: Adult Hospital Medicine (6) Cardiomyopathy Cardiomyopathy type: dilated Qualified Code(s): I42.0 - Dilated cardiomyopathy
[2023-02-02] MEDS: INSULIN ASPART PER UNIT CHARGE SC SCH ×4 (09:18→21:19)
[2023-02-02] MEDS: ASPIRIN 81 MG ECTAB PO SCH (09:18)
[2023-02-02] MEDS: ISOSORBIDE MONO EXTENDED REL 30 MG TABCR PO SCH (09:18)
[2023-02-02] MEDS: POTASSIUM CHLORIDE CRTAB 20 MEQ TABCR PO SCH ×2 (09:19→21:15)
[2023-02-02] MEDS: METOPROLOL SUCC 50MG EXT REL TAB PO SCH (09:19)
[2023-02-02] MEDS: FUROSEMIDE 40 MG TAB PO SCH ×2 (09:19→17:27)
[2023-02-02] MEDS: CYANOCOBALAMIN (B-12) 500 MCG TABLET PO SCH (09:19)
[2023-02-02] MEDS: LANTUS PER UNIT CHARGE SQ SCH ×2 (09:26→21:19)
[2023-02-02] MEDS: RIVAROXABAN 15 MG TAB PO SCH (17:27)
[2023-02-02] MEDS: QUEtiapine FUMARATE 25 MG TABLET PO SCH (21:15)
[2023-02-02] MEDS: ATORVASTATIN 40 MG TAB PO SCH (21:15)
[2023-02-03] MEDS: SODIUM CHLORIDE 0.9% 1000ML 1,000 ML IV SCH (04:11)
[2023-02-03] MEDS: LEVOTHYROXINE SODIUM 50 MCG TABLET PO SCH (04:15)
--- NOTE | 2023-02-03 08:13 | Hospitalist Progress Note ---
Date of Service February 03, 2023 Assessment & Plan (1) Stroke-like symptoms: Plan: 82yo female with a history of CVA, DM2, cardiomyopathy (s/p pacemaker placement), HFpEF, atrial fibrillation (s/p ablation), pulmonary HTN, HLD, CAD, and hypothyroidism presents with a one-day history of stroke-like symptoms. Stroke-like symptoms CT is without evidence of acute stroke;MRI: no acute intracranial findings. No change in appearance of the brain since MRI of November 07, 2022. Patient's history of prior CVA noted, as well as her history of being on xarelto/ASA Passed bedside swallow study (01/28) Aspiration precautions, fall precautions, neuro checks q2h Continue atorvastatin, ASA, xarelto Awaiting inpatient rehab placement Continues to have slow speech denisse; expressive aphasia type symptom vs less likely apraxia; mild R lower facial droop noted Delirium, resolved Seroquel 12.5mg qHS scheduled, started this admission. 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, would like to make decisions if she is ever incapacitated HFpEF: restart entresto, continue lasix, metoprolol HTN, HLD, CAD: continue home atorvastatin, metoprolol, ASA, imdur Hypothyroidism: continue home levothyroxine Insomnia: continue seroquel FEN: DM2+ minced and moist diet, IV fluids discontinued Code status: full code DVT ppx: home xarelto Dispo: med/surg; discharge pending inpatient rehab placement (2) Cerebrovascular disease: (3) Dysarthria: (4) Atrial fibrillation with rapid ventricular response: (5) ICD (implantable cardioverter-defibrillator), biventricular, in situ: (6) Cardiomyopathy: (7) CAD in [place] artery: (8) Chronic diastolic congestive heart failure: (9) Chronic kidney disease (CKD), stage III (moderate): (10) Diabetes mellitus type 2 with complications: (11) Hypercholesterolemia: Admission and Anticipated Discharge Date Admission Date: January 27, 2023 Supervising Physician Co-Signing Physician Notes Resident Physician Supervision Note: I independently interviewed and examined the patient and verified the robbins history and physical, reviewed labs and image studies and agree with resident findings and care plan. Subjective Patient denies complaints. She does report mild dyspnea on exertion when asked. Regarding the slow denisse speech, patient states that it started after the fall (in which she hit tailbone) prior to this admission. Review of Systems Review of Systems: All systems reviewed & are unremarkable except as noted in HPI & below Physical Exam Physical Exam: General: Grossly A&O. NAD. Cooperative. HEENT: Atraumatic, normocephalic. EOMI Pulm: Decreased breath sounds on left. Right breath sounds are clear. No accessory muscle use. Cardiac: RRR, -mrg. Abdominal: Nontender, nondistended, soft. Neuro: Mild right lower facial droop (hard to discern). Slow denisse speech. 5+/5 bilateral upper and lower extremity strength. Sensation of bilateral upper and lower extremities and face intact. Results & Data Results & Data Vital Signs (Past 12 Hours) Vital Signs Temp Pulse Resp BP BP Pulse Ox O2 Del Method 02/03/23 07:29 36.4 C L 73 16 178/92 H 98 Room Air 02/02/23 22:09 36.6 C 71 18 164/84 H 94 Room Air 02/02/23 21:50 Room Air Resident Activity Tracking Resident Involvement: Resident Care Provided Care Provided: Adult Hospital Medicine (6) Cardiomyopathy Cardiomyopathy type: dilated Qualified Code(s): I42.0 - Dilated cardiomyopathy
[2023-02-03 08:19] LABS: Hematocrit (blood only) 44.3 % (37.0-47.0); Hemoglobin 14.6 g/dl (12.0-16.0); Mean Corpuscular Hemoglobin 29.7 pg (25.0-34.0); Mean Platelet Volume 11.5 fL (9.4-12.4); Platelet Count 175 K/uL (130-400); RDW Coefficient of Variation 14.2 % (11.5-14.5); RDW Standard Deviation 46.6 fL (36.4-46.3); Red Blood Count 4.92 M/uL (4.20-5.40); White Blood Count 8.41 K/ul (4.8-10.8)
[2023-02-03 08:32] LABS: BUN Creatinine Ratio 24.3 (10-20); Calcium 9.4 mg/dl (8.6-10.3); Creatinine Clr Calc Pharmacy 57.5 ml/min; Est GFR (African American) 92.9 ml/min; Est GFR (Non-African American) 80.1 ml/min
[2023-02-03] MEDS: CYANOCOBALAMIN (B-12) 500 MCG TABLET PO SCH (08:48)
[2023-02-03] MEDS: METOPROLOL SUCC 50MG EXT REL TAB PO SCH (08:48)
[2023-02-03] MEDS: POTASSIUM CHLORIDE CRTAB 20 MEQ TABCR PO SCH ×2 (08:48→20:36)
[2023-02-03] MEDS: FUROSEMIDE 40 MG TAB PO SCH ×2 (08:48→17:44)
[2023-02-03] MEDS: ISOSORBIDE MONO EXTENDED REL 30 MG TABCR PO SCH (08:48)
[2023-02-03] MEDS: ASPIRIN 81 MG ECTAB PO SCH (08:48)
[2023-02-03] MEDS: LANTUS PER UNIT CHARGE SQ SCH ×2 (08:49→20:36)
[2023-02-03] MEDS: INSULIN ASPART PER UNIT CHARGE SC SCH ×4 (08:49→20:37)
--- NOTE | 2023-02-03 10:33 | XRay Report ---
XR chest 2V PA/lateral CLINICAL HISTORY: Decreased left-sided breath sounds. COMPARISON STUDY: Chest radiograph January 27, 2023. FINDINGS: Left subclavian biventricular pacer/AICD is in place. Elevation of the left hemidiaphragm w ith left basilar opacity is again noted. This opacity favors atelectasis. Cardiomegaly is unchanged. There is no evidence for pulmonary edema. Pulmonary edema shown on prior chest radiograph is resolved . Right glenohumeral joint osteoarthritis is incidentally noted. IMPRESSION: 1. No acute cardiopulmonary findings. 2. Stable elevation the left hemidiaphragm with left basilar opacity suggestive of atelectasis. 3. Cardiomegaly without evidence for pulmonary edema. ACT 112: Negative or not required by law. Electronically signed by: Rick King M.D. 02/03/2023 10:31 AM
[2023-02-03] MEDS: VALSARTAN/SACUBITRIL 26/24MG TAB PO SCH (13:11)
[2023-02-03] MEDS: RIVAROXABAN 15 MG TAB PO SCH (17:43)
[2023-02-03] MEDS: ACETAMINOPHEN 325 MG TAB PO PRN (20:36)
[2023-02-03] MEDS: QUEtiapine FUMARATE 25 MG TABLET PO SCH (20:37)
[2023-02-03] MEDS: ATORVASTATIN 40 MG TAB PO SCH (20:39)
[2023-02-04] MEDS: ACETAMINOPHEN 325 MG TAB PO PRN ×2 (05:59→22:06)
[2023-02-04] MEDS: LEVOTHYROXINE SODIUM 50 MCG TABLET PO SCH (05:59)
--- NOTE | 2023-02-04 07:01 | Hospitalist Progress Note ---
Date of Service February 04, 2023 Assessment & Plan (1) Stroke-like symptoms: Plan: 82yo female with a history of CVA, DM2, cardiomyopathy (s/p pacemaker placement), HFpEF, atrial fibrillation (s/p ablation), pulmonary HTN, HLD, CAD, and hypothyroidism presents with a one-day history of stroke-like symptoms (altered speech). Stroke-like symptoms CTA head/neck, CT head, andMRI: no acute intracranial findings. No change in appearance of the brain since MRI of November 07, 2022. Continue atorvastatin, ASA, Xarelto. Reviewed 12/28/22 lipid panel: LDL 23, so will decrease atorvastatin from 40mg to 20mg daily. Continues to have slow speech denisse; expressive aphasia type symptom vs apraxia. Plavix not pursued at this time; risk/benefits considered. Coccygeal pain Reported fall 3 wks ago. No sacral ulcers or skin concerns per nursing. Checking XR pelvis/hip. Delirium, resolved Seroquel 12.5mg qHS scheduled, started this admission. 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, would like to make decisions if she is ever incapacitated HFpEF: restart entresto, continue lasix, metoprolol HTN, HLD, CAD: continue home atorvastatin, metoprolol, ASA, imdur Hypothyroidism: continue home levothyroxine Insomnia: continue seroquel FEN: DM2+ minced and moist diet Code status: full Anticoag: home Xarelto Dispo: med/surg; (2) Cerebrovascular disease: (3) Dysarthria: (4) Atrial fibrillation with rapid ventricular response: (5) ICD (implantable cardioverter-defibrillator), biventricular, in situ: (6) Cardiomyopathy: (7) CAD in [place] artery: (8) Chronic diastolic congestive heart failure: (9) Chronic kidney disease (CKD), stage III (moderate): (10) Diabetes mellitus type 2 with complications: (11) Hypercholesterolemia: (12) Coccygeal pain: Admission and Anticipated Discharge Date Admission Date: January 27, 2023 Supervising Physician Co-Signing Physician Notes I also saw the patient and confirmed robbins portions of the history and physical ex amination. I agree with the impression and plan as noted in the resident documentation. Upon our midmorning exam, the patient is lying semi reclined in bed. Her speech is slow and somewhat dysarthric, although it is understandable; she answers questions appropriately, and carries on conversation, albeit slowed. EXAM 120/72, 70, 14, 36.5, 93% on room air Respirations are non-labored, lungs are clear Heart regular rate and rhythm DATA No new data IMPRESSION AND PLAN Stroke-like symptoms Atrial fibrillation, rate controlled Interestingly, no changes on neuroimaging, although new onset dysarthria seems consistent with CVA. Patient presented on aspirin plus Xarelto, and given lack of changes on neuroimaging we will continue same Consideration could be given to changing rivaroxaban to apixaban given slightly better data in terms of stroke prophylaxis Agree with reducing atorvastatin from 40 mg to 20 mg given her exceptionally low LDL Insurance authorization pending SNF placement Additional per resident documentation Subjective Per nursing, no acute events overnight. Patient denies any new complaints. She states that she is still sleepy as she has just woken up. She denies fever, chills, chest pain, shortness of breath, abdominal pain. 11AM update: Patient complaining of tailbone pain. She notes that she fell 3 wks ago. Physical Exam Physical Exam: General: Grossly A&O. NAD. Cooperative. HEENT: Atraumatic, normocephalic. EOMI Pulm: CTAB anteriorly. No accessory muscle use. Cardiac: RRR, -mrg. Abdominal: Nontender, nondistended, soft. Neuro: No facial droop. Slow speech denisse. Answering questions appropriately. Results & Data Results & Data Vital Signs (Past 12 Hours) Vital Signs Temp Pulse Resp BP Pulse Ox O2 Del Method 02/03/23 22:27 36.7 C 72 18 115/63 96 Room Air Resident Activity Tracking Resident Involvement: Resident Care Provided Care Provided: Adult Hospital Medicine (6) Cardiomyopathy Cardiomyopathy type: dilated Qualified Code(s): I42.0 - Dilated cardiomy opathy
[2023-02-04] MEDS: ASPIRIN 81 MG ECTAB PO SCH (08:41)
[2023-02-04] MEDS: FUROSEMIDE 40 MG TAB PO SCH ×2 (08:41→17:50)
[2023-02-04] MEDS: CYANOCOBALAMIN (B-12) 500 MCG TABLET PO SCH (08:41)
[2023-02-04] MEDS: ISOSORBIDE MONO EXTENDED REL 30 MG TABCR PO SCH (08:41)
[2023-02-04] MEDS: METOPROLOL SUCC 50MG EXT REL TAB PO SCH (08:41)
[2023-02-04] MEDS: VALSARTAN/SACUBITRIL 26/24MG TAB PO SCH ×2 (08:41→22:07)
[2023-02-04] MEDS: INSULIN ASPART PER UNIT CHARGE SC SCH ×4 (08:45→22:05)
[2023-02-04] MEDS: LANTUS PER UNIT CHARGE SQ SCH (08:47)
[2023-02-04] MEDS: POTASSIUM CHLORIDE CRTAB 20 MEQ TABCR PO SCH ×2 (08:58→22:06)
--- NOTE | 2023-02-04 16:49 | XRay Report ---
XR hip MARU 2v w pelvis CLINICAL HISTORY: Bilateral hip pain. Tailbone pain. COMPARISON STUDY: CT of the abdomen and pelvis September 14, 2014. FINDINGS: The sacroiliac joints and symphysis pubis are intact. There is no acute fracture within the pelvis or hips. Moderate bilateral hip osteoarthritis is present. Vascular calcification is incident ally noted. IMPRESSION: 1. No acute fracture within the pelvis or hips. 2. Moderate bilateral hip osteoarthritis. ACT 112: Negative or not required by law. Electronically signed by: Rick King M.D. 02/04/2023 4:48 PM
[2023-02-04] MEDS: RIVAROXABAN 15 MG TAB PO SCH (17:51)
[2023-02-04] MEDS ORDERED: ATORVASTATIN 20 MG TAB PO SCH (21:00)
[2023-02-04] MEDS ORDERED: LANTUS PER UNIT CHARGE SQ SCH (21:00)
[2023-02-04] MEDS: QUEtiapine FUMARATE 25 MG TABLET PO SCH (22:07)
[2023-02-05] MEDS: LEVOTHYROXINE SODIUM 50 MCG TABLET PO SCH (06:31)
[2023-02-05] MEDS: VALSARTAN/SACUBITRIL 26/24MG TAB PO SCH (08:16)
[2023-02-05] MEDS: CYANOCOBALAMIN (B-12) 500 MCG TABLET PO SCH (08:16)
[2023-02-05] MEDS: METOPROLOL SUCC 50MG EXT REL TAB PO SCH (08:17)
[2023-02-05] MEDS: FUROSEMIDE 40 MG TAB PO SCH (08:17)
[2023-02-05] MEDS: ISOSORBIDE MONO EXTENDED REL 30 MG TABCR PO SCH (08:17)
[2023-02-05] MEDS: ASPIRIN 81 MG ECTAB PO SCH (08:17)
[2023-02-05] MEDS: POTASSIUM CHLORIDE CRTAB 20 MEQ TABCR PO SCH (08:19)
[2023-02-05] MEDS: INSULIN ASPART PER UNIT CHARGE SC SCH ×2 (08:31→12:46)
[2023-02-05 08:50] LABS: Hematocrit (blood only) 45.4 % (37.0-47.0); Hemoglobin 15.2 g/dl (12.0-16.0); Mean Corpuscular Hemoglobin 29.6 pg (25.0-34.0); Mean Corpuscular Hgb Conc 33.5 g/dL (32.0-36.0); Mean Corpuscular Volume 88.5 fL (80.0-100.0); Mean Platelet Volume 12.6 fL (9.4-12.4); Platelet Count 174 K/uL (130-400); RDW Coefficient of Variation 14.2 % (11.5-14.5); RDW Standard Deviation 45.2 fL (36.4-46.3); Red Blood Count 5.13 M/uL (4.20-5.40); White Blood Count 8.82 K/ul (4.8-10.8)
[2023-02-05] MEDS ORDERED: LANTUS PER UNIT CHARGE SQ SCH (09:00)
[2023-02-05 09:23] LABS: BUN Creatinine Ratio 18.5 (10-20); Calcium 9.7 mg/dl (8.6-10.3); Creatinine Clr Calc Pharmacy 49.7 ml/min; Est GFR (African American) 77.8 ml/min; Est GFR (Non-African American) 67.2 ml/min; Magnesium 1.6 mg/dl (1.7-2.4); Potassium 3.8 mmol/L (3.5-5.1)
--- NOTE | 2023-02-05 13:50 | Discharge Summary ---
Date of Service February 05, 2023 Admission HPI Per Admitting Provider 82-year-old female with past medical history of CAD, HFpEF, cardiomyopathy s/o BiV ICD, A. fib s/p ablation, pulmonary hypertension, hypercholesterolemia, DM2, stroke and hypothyroidism who is presenting for stroke like symptoms. and son at bedside who help provide history. Pt woke up around 5pm from a nap and the noticed she was having trouble using her walker as well as sitting down. They could not understand her speech. She does have h/o stroke a few years back and has been doing well since. Compliant with medications at home. Did take her home xarelto this morning for afib. Denies fever, headache, chest pain, sob, abd pain, N/V/D, falls. Principal Diagnosis Stroke Like Symptoms Discharge Exam General: Grossly A&O. NAD. Cooperative. HEENT: Atraumatic, normocephalic. EOMI Pulm: CTAB anteriorly. No accessory muscle use. Cardiac: RRR Abdominal: soft. Neuro: No facial droop. Slow speech denisse. Answering questions appropriately. Discharge Data Allergies Allergy/AdvReac Type Severity Reaction Status Date / Time Penicillins Allergy Severe RASH,SWELLI Verified 01/27/23 18:59 NG Consultations 01/27/23 19:47 ED Decision to Admit Stat Ordered Studies 01/27/23 18:24 CT angio head w con Stat CT angio neck with con Stat CT head/brain wo con Stat 01/30/23 00:00 MR brain wo/w con Stat Diabetes Follow up Diabetes Follow-up Needed for HgbA1c >9% Hospital Course (1) Stroke-like symptoms: 82yo female with a history of CVA, DM2, cardiomyopathy (s/p pacemaker placement), HFpEF, atrial fibrillation (s/p ablation), pulmonary HTN, HLD, CAD, and hypothyroidism presents with a one-day history of stroke-like symptoms (altered speech). Stroke-like symptoms CTA head/neck, CT head, andMRI: no acute intracranial findings. No change in appearance of the brain since MRI of November 07, 2022. Continue atorvastatin, ASA, Xarelto. Reviewed 12/28/22 lipid panel: LDL 23, so will decrease atorvastatin from 40mg to 20mg daily. Continues to have slow speech denisse; expressive aphasia type symptom vs apraxia. Plavix not pursued at this time; risk/benefits considered. Coccygeal pain Reported fall 3 wks ago. No sacral ulcers or skin concerns per nursing. Delirium, resolved Seroquel 12.5mg qHS scheduled, started this admission. consider dc after rehab AYAD, resolved Atrial fibrillation, cardiomyopathy, stable Patient's history of BiV ICD placement noted Continue metoprolol and Xarelto as noted above DM2 HbA1c 9.3% (01/29/23) Patient's home regimen held on admission Continue BSG checks, sliding-scale insulin, hypoglycemia protocol Goals of care Patient has a living will filed with her pension adviser, would like to make decisions if she is ever incapacitated HFpEF: restart entresto, continue lasix, metoprolol HTN, HLD, CAD: continue home atorvastatin, metoprolol, ASA, imdur Hypothyroidism: continue home levothyroxine Insomnia: continue seroquel, consider D/c in outpatient setting FEN: DM2+ minced and moist diet Code status: full Anticoag: home Xarelto Dispo: SNF (2) Cerebrovascular disease: (3) Dysarthria: (4) Atrial fibrillation with rapid ventricular response: (5) ICD (implantable cardioverter-defibrillator), biventricular, in situ: (6) Cardiomyopathy: (7) CAD in [place] artery: (8) Chronic diastolic congestive heart failure: (9) Chronic kidney disease (CKD), stage III (moderate): (10) Diabetes mellitus type 2 with complications: (11) Hypercholesterolemia: (12) Coccygeal pain: Total Time Total Time Spent Total Time Spent (In Minutes): <30 Discharge Plan Discharge Items Patient Disposition: Transfer Halfway Fac Reason For Visit: STROKE LIKE SYMPTOMS Discharge Diagnosis: Stroke Like Symptoms Activity: Per Instructions section Non-emergency contact: Primary Care Provider Call non-emergency contact if: you have any medication questions and your symptoms worsen Follow-up/Referrals: Chaz Borges III, CRNP [Primary Care Provider] - 02/13/23 9:20 am Diet: Regular Addtl Attending Provider Instructions: You were seen in the hospital for evaluation of strokelike symptoms. While you are here you had a CT of the head and neck as well as an MRI that showed no new or acute intracranial findings. There is seems to be no change in brain appearance when compared to MRI of November 07, 2022. We feel that your symptoms are most likely due to worsening dementia/delirium and it seems that you have returned back to baseline. While you are here you were seen by the physical therapy team who felt that you required additional sessions and treatment. For this reason you will be transferred to a long term facility to help regain some of your ability. The only medication change at this time is that we are decreasing her atorvastatin from 40 to 20 mg. This is because the cholesterol medication was actually making your cholesterol too low which can increase your bleeding risk. Follow-up with your primary care provider regarding this. Otherwise please return to your home medication regimen. Is been a pleasure to be part of your care and we wish you the best in both your health and your recovery. Detailed Course Below for [facility]: (1) Stroke-like symptoms: Plan: 82yo female with a history of CVA, DM2, cardiomyopathy (s/p pacemaker placement), HFpEF, atrial fibrillation (s/p ablation), pulmonary HTN, HLD, CAD, and hypothyroidism presents with a one-day history of stroke-like symptoms (altered speech). Stroke-like symptoms CTA head/neck, CT head, andMRI: no acute intracranial findings. No change in appearance of the brain since MRI of November 07, 2022. Continue atorvastatin, ASA, Xarelto. Reviewed 12/28/22 lipid panel: LDL 23, so will decrease atorvastatin from 40mg to 20mg daily. Continues to have slow speech denisse; expressive aphasia type symptom vs apraxia. Plavix not pursued at this time; risk/benefits considered. Coccygeal pain Reported fall 3 wks ago. No sacral ulcers or skin concerns per nursing. Delirium, resolved Seroquel 12.5mg qHS scheduled, started this admission. consider dc after rehab AYAD, resolved Atrial fibrillation, cardiomyopathy, stable Patient's history of BiV ICD placement noted Continue metoprolol and Xarelto as noted above DM2 HbA1c 9.3% (01/29/23) Patient's home regimen held on admission Continue BSG checks, sliding-scale insulin, hypoglycemia protocol Goals of care Patient has a living will filed with her pension adviser, would like to make decisions if she is ever incapacitated HFpEF: restart entresto, continue lasix, metoprolol HTN, HLD, CAD: continue home atorvastatin, metoprolol, ASA, imdur Hypothyroidism: continue home levothyroxine Insomnia: continue seroquel FEN: DM2+ minced and moist diet Code status: full Anticoag: home Xarelto Dispo: med/surg; (2) Cerebrovascular disease: (3) Dysarthria: (4) Atrial fibrillation with rapid ventricular response: (5) ICD (implantable cardioverter-defibrillator), biventricular, in situ: (6) Cardiomyopathy: (7) CAD in [place] artery: (8) Chronic diastolic congestive heart failure: (9) Chronic kidney disease (CKD), stage III (moderate): (10) Diabetes mellitus type 2 with complications: (11) Hypercholesterolemia: (12) Coccygeal pain: Pending Studies at Discharge: No Stand-Alone Forms: [employer] Skilled Items Patient informed of condition?: No DNR: No Discharge Level of Care: Skilled Communicable Disease: No Discharge Prognosis: Stable Lines: None Urinary Catheter: No Medications and DC Order Prescriptions: New atorvastatin 20 mg Tablet 20 mg PO HS Qty: 30 2RF Continued levothyroxine 50 mcg tablet 50 mcg PO DAILY Qty: 90 1RF (DME) Wheeled Walker [facility] [place] See Rx Instructions .Route Qty: 1 0RF Rx Instructions: rollator walker with seat & hand brakes on it Entresto 24-26 mg tablet 1 tab PO BID Qty: 180 3RF isosorbide mononitrate 30 mg tablet extended release 24 hr 30 mg PO DAILY Qty: 90 1RF sitagliptin phosphate 50 mg tablet 50 mg PO DAILY Qty: 90 1RF (DME) lancets [OneTouch Delica Plus Lancet] 30 gauge [facility] See Rx Instructions .MEDSUPPLY Qty: 100 5RF Rx Instructions: Test blood glucose three times daily (DME) blood sugar diagnostic Strip See Rx Instructions .MEDSUPPLY Qty: 100 5RF Rx Instructions: Test blood glucose three times daily (DME) blood-glucose meter [OneTouch Ultra2 Meter] [facility] [place] See Rx Instructions .MEDSUPPLY Qty: 1 0RF Rx Instructions: Use to test blood glucose three times daily metformin 500 mg tablet 500 mg PO BID Qty: 180 1RF Rx Instructions: for blood sugars (DME) pen needle, diabetic [Comfort EZ Pen [place]] 31 gauge x 3/16" needle See Rx Instructions .ROUTE .MEDSUPPLY Qty: 200 3RF Rx Instructions: Use two daily to inject insulin metoprolol succinate 100 mg tablet extended release 24 hr 100 mg PO DAILY Qty: 90 3RF quetiapine [Seroquel] 25 mg tablet 12.5 mg PO HS Qty: 45 3RF potassium chloride 20 mEq Tablet Extended Release 20 meq PO BID furosemide [Lasix] 40 mg tablet 40 mg PO BID aspirin 81 mg Tablet,Delayed Release (Dr/Ec) 81 mg PO QAM Qty: 30 0RF Xarelto 15 mg Tablet 15 mg PO DAILY Qty: 30 5RF cyanocobalamin (vitamin B-12) 1,000 mcg capsule 1,000 mcg PO DAILY Qty: 30 0RF Rx Instructions: Wtdo-zae-fzelayw Toujeo SoloStar U-300 Insulin 300 unit/mL (1.5 mL) insulin pen 12 unit subcut BID Qty: 1.5 0RF Discontinued atorvastatin 40 mg tablet 40 mg PO HS Qty: 90 3RF Discharge Orders: Discharge Order (Routine); Ordered 02/05/23 Ordered By: Ibrahima Hernandez/Other Patient Handouts: Managing Type 2 Diabetes Admission Data Admit Date/Time: 01/27/23 20:55 Attending Provider: Familia Bright Admit Provider: Torito Rao Primary Care Provider: Chaz Borges III Other Providers: Familia Bright ; [facility] ; [facility] ; Kendall Cross ; Carisa Davies Other Interventions: Discharge Summary Assessment (RN) Last Done: 02/05/23 14:37 Supervising Physician Co-Signing Physician Notes I personally examined the patient and verified all robbins points of history and exam, discussed case, and agree with decision making with Dr Servin feeling OK for rehab. ongoing slurred speech. see dr jenkins's note from yesterday - notes speech is back to her baseline vitals noted nad heent nc at mmm breathing unlabored no accessory muscles good effort ongoing slurred speech similar to when i see her last week IMPRESSION AND PLAN Stroke-like symptoms - probable TIA superimposed on baseline dysarthria Atrial fibrillation, rate controlled Patient presented on aspirin plus Xarelto, and given lack of changes on neuroimaging we will continue same Consideration could be given to changing rivaroxaban to apixaban given slightly better data in terms of stroke prophylaxis Agree with reducing atorvastatin from 40 mg to 20 mg given her exceptionally low LDL for SNF today Additional per resident documentation
--- NOTE | 2023-02-05 17:10 | Billing Data ---
Date of Service February 05, 2023 Coding Level of Care Code 76915 IN/OBS DISCH 30 MIN/LESS
== END 2023-02-05 15:23 | DRG 69 ==
LOC: ED 18:10 → SUATTDRO 20:55 → 4W 20:55 → 3W 02-02 17:59

== ENCOUNTER 2023-05-24 13:49 | Inpatient (IN) ==
[2023-05-24] MEDS ORDERED: SODIUM CHLORIDE 0.9% 1000ML 1,000 ML IV ONE (13:58)
--- NOTE | 2023-05-24 14:06 | Emergency Department Note ---
Impression & Plan Weak, Leukocytosis, Elevated troponin ED Provider Note NAME: PARADISE MARMOLEJO AGE: 83 SEX: F : 1940 ARRIVES VIA: Ambulance INFORMANT: Patient, Family/Daughter ED PROVIDER(S): Familia Polanco DO CHIEF COMPLAINT: weakness HPI: Patient is an 83-year-old female with a past medical history of ataxia, CVA dysphagia, dysarthria who presents to the ER for weakness. Family over the past week has been pushing her around on a chair as she has been unable to get up and walk with a walker. She denies any headache or change in vision. No chest pain or shortness of breath. She admits to chronic back pain which is unchanged. She notes she does feel weak and rundown. No dysuria urgency or frequency. No other exacerbating or remitting factors. Daughter notes that this has been a gradual decline over the past 2 weeks. No trauma or falls. PAST MEDICAL HISTORY:See Below PAST SURGICAL HISTORY:See Below FAMILY HISTORY:See Below SOCIAL HISTORY:See Below HOME MEDICATIONS:See Below ALLERGIES:See Below VITALS:See Below PHYSICAL EXAMINATION: GENERAL: Sitting up in bed, alert, chronically ill-appearing, disheveled EYE EXAM: normal conjunctiva. PERRL and EOM's grossly intact. OROPHARYNX: no exudate, no erythema, lips, buccal mucosa, and tongue normal and mucous membranes are moist NECK: supple, no nuchal rigidity, no adenopathy, non-tender LUNGS: Clear to auscultation. Normal chest wall mechanics HEART: no murmurs, S1 normal and S2 normal ABDOMEN: abdomen soft, non-tender, normo-active bowel sounds, no masses, no rebound or guarding. BACK: Back is symmetrical on inspection and there is no deformity, no midline tenderness, no CVA tenderness. SKIN: no rashes and no bruising UPPER EXTREMITIES: upper extremities are grossly normal. LOWER EXTREMITIES: No pitting edema. NEURO EXAM: Normal sensorium, slurred speech with a facial droop which is old per patient, grossly weak bilaterally in the arms and legs MEDICAL DECISION MAKING: Patient is an 83-year-old female who presents ER for above-stated complaint. IV was established blood work was obtained. External records were reviewed. Labs show mild leukocytosis 11.8 thousand. No significant anemia. INR 1.2. BMP along with LFTs was unremarkable. T. bili at 1.4. Troponin slightly elevated at 16. Lipase normal. UA was clean. Chest x-ray with enlarged cardiac silhouette. Patient has no focal complaints. There is no trauma. Discussed with the hospitalist for further evaluation as family having trouble taking care of her at home. No signs of infection at this time. Triage Nursing notes reviewed. Limited review of prior medical records performed Vital Signs: reviewed and remarkable for no significant abnormalities Differential diagnosis: Infection, dehydration, metabolic abnormality, hypo/hyperglycemia, electrolyte disturbance, anemia, hypoxia, cardiac sources, intracerebral event, toxicologic, neurologic, as well as other pathologies. ER treatment provided: See below Diagnostics interpreted by me include EKG and cardiac monitoring as listed below: -Cardiac Monitoring: An order was placed for continuous cardiac monitoring. The monitor shows a rate of 80 with paced rhythm. -ECG: Ventricular paced rate 83 Left axis Right bundle branch block QTc 465 -Laboratory studies:Interpreted by me as stated above in MDM and shown below. 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 Diabetic peripheral neuropathy Diabetic retinopathy, nonproliferative Digoxin toxicity HTN (hypertension) Hypercholesterolemia Hypothyroidism Kidney stones LBBB (left bundle branch block) Mitral regurgitation Multiple joint pain Nocturnal hypoxia Psoriasis Pulmonary hypertension Restrictive lung disease Tricuspid valve insufficiency Surgical History History of appendectomy History of cholecystectomy History of hysterectomy S/P AV bibi ablation Status post implantation of automatic cardioverter/defibrillator (AICD) Status post implantation of automatic cardioverter/defibrillator (AICD) Family History Family/Other Cancer Mother Diabetes Myocardial infarction Other Prostate cancer Denies family history of Ovarian cancer Breast cancer Colorectal cancer Social History Smoking Status: Never smoker Second Hand Exposure: No; Do You Dip or Chew Tobacco: No; Hx Alcohol Use: No Hx Substance Use: No Preferred Language: Polish Communication Ability: Impaired Visual Impairment: No Limitations Hearing Ability: Normal Stogy Maker Required: No Beliefs That Will Affect Care: None marital status: Current Living Situation: Spouse Current Living Situation Comment: current occupational status: retired Feels Safe at Home: Yes Childhood Exposure to Second-Hand Smoke: No Diet: diabetic Diet Comment: diabetic Dental Care, Regularly: No Physical Activity Frequency: 5-6 Times per Week Seatbelt Use: never Sunscreen Use: No Assistive Devices: Walker Allergies Allergies Allergy/AdvReac Type Severity Reaction Status Date / Time Penicillins Allergy Severe RASH,SWELLI Verified 05/22/23 12:58 NG Home Meds Home Medications Medication Instructions Recorded Confirmed acetaminophen 325 mg tablet 325 mg PO Q6 PRN Pain 05/24/23 05/24/23 (Tylenol) furosemide 40 mg tablet 40 mg PO BID 05/24/23 05/24/23 levothyroxine 50 mcg tablet 50 mcg PO DAILYBB 05/24/23 05/24/23 metoprolol succinate 100 mg 100 mg PO QAM 05/24/23 05/24/23 tablet,extended release 24 hr potassium chloride 20 mEq 20 meq PO AMHS 05/24/23 05/24/23 tablet,extended release rivaroxaban 15 mg tablet (Xarelto) 15 mg PO QPM 05/24/23 05/24/23 sitagliptin phosphate 50 mg tablet 50 mg PO QAM 05/24/23 05/24/23 Previous Rx's Medication Instructions Recorded Wheeled Walker #1 ea 03/02/22 isosorbide mononitrate 30 mg 30 mg PO DAILY #90 tabs 08/14/22 tablet,extended release 24 hr aspirin 81 mg tablet,delayed 81 mg PO QAM #30 tabs 11/10/22 release cyanocobalamin (vitamin B-12) 1,000 mcg PO DAILY #30 caps 11/10/22 1,000 mcg capsule blood sugar diagnostic #100 ea 11/13/22 blood-glucose meter (exoro systemTouch #1 ea 11/13/22 Ultra2 Meter) lancets 30 gauge (OneTouch Delica #100 ea 11/13/22 Plus Lancet) metformin 500 mg tablet 500 mg PO BID #180 tabs 01/12/23 atorvastatin 20 mg tablet 20 mg PO HS #90 tabs 02/15/23 flash glucose scanning reader #2 ea 02/15/23 (FreeStyle Lilli 14 Day [place]) flash glucose sensor (FreeStyle #2 ea 02/15/23 Lilli 14 Day Sensor kit) pen needle, diabetic 31 gauge x #200 ea 03/13/2301/11" (Comfort EZ Pen [place]) valsartan 40 mg tablet 40 mg PO BID #180 tabs 03/13/23 quetiapine 25 mg tablet (Seroquel) 12.5 mg PO HS #45 tabs 04/13/23 insulin glargine U-300 conc 300 See Rx Instructions subcut PM #9 mL 05/10/23 unit/mL (1.5 mL) subcutaneous pen (Toujeo SoloStar U-300 Insulin) Results & Data (ED) Vital Signs Vital Signs - 24 hr 05/24/23 13:54 05/24/23 13:58 05/24/23 14:03 Temperature Temperature Source Pulse Rate 84 94 H 93 H Pulse Rate [Apical] Respiratory Rate 18 18 Respiratory Effort / Characteristics Non-Labored Labored Respiratory Depth Normal Respiratory Pattern Blood Pressure [Right Arm] Blood Pressure Mean [Right Arm] Pulse Oximetry 97 Oxygen Delivery Method Room Air Sepsis Recent Fever Within 48 Hours No Sepsis New/Unexplained Change in Mental Status No Sepsis Action Taken by Nursing No Action Required 05/24/23 15:14 05/24/23 15:14 05/24/23 16:14 Temperature 36.9 C Temperature Source Oral Pulse Rate Pulse Rate [Apical] 70 70 Respiratory Rate 20 15 Respiratory Effort / Characteristics Non-Labored Respiratory Depth Normal Normal Respiratory Pattern Regular Blood Pressure [Right Arm] 202/89 H 202/97 H Blood Pressure Mean [Right Arm] 126 132 Pulse Oximetry 96 97 97 Oxygen Delivery Method Room Air Room Air Room Air Sepsis Recent Fever Within 48 Hours Sepsis New/Unexplained Change in Mental Status Sepsis Action Taken by Nursing 05/24/23 18:00 05/24/23 18:02 Temperature Temperature Source Pulse Rate 70 Pulse Rate [Apical] 70 Respiratory Rate 15 Respiratory Effort / Characteristics Respiratory Depth Respiratory Pattern Blood Pressure [Right Arm] 175/87 H Blood Pressure Mean [Right Arm] 116 Pulse Oximetry 97 Oxygen Delivery Method Sepsis Recent Fever Within 48 Hours Sepsis New/Unexplained Change in Mental Status Sepsis Action Taken by Nursing Laboratory Data 05/24/23 14:02 05/24/23 15:52 Lab Results 05/24/23 05/24/23 05/24/23 Range/Units 14:02 14:02 14:02 WBC 11.81 H (4.8-10.8) K/ul RBC 4.86 (4.20-5.40) M/uL Hgb 14.0 (12.0-16.0) g/dl Hct 43.2 (37.0-47.0) % MCV 88.9 (80.0-100.0) fL MCH 28.8 (25.0-34.0) pg MCHC 32.4 (32.0-36.0) g/dL RDW Std Deviation 49.9 H (36.4-46.3) fL RDW Coeff of Luana 15.4 H (11.5-14.5) % Plt Count 244 (130-400) K/uL MPV 10.9 (9.4-12.4) fL Immature Gran % (Auto) 0.5 % Neut % (Auto) 68.4 % Lymph % (Auto) 22.7 % [place] % (Auto) 6.6 % Eos % (Auto) 1.4 % Baso % (Auto) 0.4 % Neut # (Auto) 8.08 H (1.40-6.50) K/uL Lymph # (Auto) 2.68 (1.2-3.4) K/uL [place] # (Auto) 0.78 H (0.11-0.59) K/uL Eos # (Auto) 0.16 (0-0.50) K/uL Baso # (Auto) 0.05 (0-0.2) K/uL Immature Gran # (Auto) 0.06 (0.01-0.20) K/uL PT 12.7 H (9.0-12.0) Seconds INR 1.2 H (0.9-1.1) Sodium TNP Potassium TNP Chloride 102 (98-107) mmol/L Carbon Dioxide 28 (21-32) mmol/L Anion Gap TNP BUN 25 H (6-23) mg/dl Creatinine 0.75 (0.6-1.2) mg/dl Est Cr Clr Drug Dosing 52.3 ml/min Est GFR ( Amer) 84.8 ml/min Est GFR (Non-Af Amer) 73.2 ml/min BUN/Creatinine Ratio 33.3 H (10-20) Glucose 108 H (70-99(Fasting)) mg/dl Calcium 10.3 (8.6-10.3) mg/dl Total Bilirubin 1.4 H (0.2-1.0) mg/dl AST TNP ALT 18 (7-52) U/L Alkaline Phosphatase 114 H (34-104) U/L Troponin I High Sens 16.6 H (0-14) pg/ml Total Protein 7.4 (6.0-8.3) gm/dl Albumin 4.2 (3.4-5.0) gm/dl Globulin 3.2 (2.5-4.0) gm/dl Albumin/Globulin Ratio 1.3 (0.9-2) Lipase 35 (11-82) U/L Urine Color Urine Appearance (Clear) Urine pH (4.5-7.5) Ur Specific Page (1.000-1.030) Urine Protein (Negative) Urine Glucose (UA) (Negative) Urine Ketones (Negative) Urine Blood (Negative) Urine Nitrite (Negative) Urine Bilirubin (Negative) Urine Urobilinogen (Negative) Ur Leukocyte Esterase (Negative) 05/24/23 05/24/23 Range/Units 14:15 15:52 WBC (4.8-10.8) K/ul RBC (4.20-5.40) M/uL Hgb (12.0-16.0) g/dl Hct (37.0-47.0) % MCV (80.0-100.0) fL MCH (25.0-34.0) pg MCHC (32.0-36.0) g/dL RDW Std Deviation (36.4-46.3) fL RDW Coeff of Luana (11.5-14.5) % Plt Count (130-400) K/uL MPV (9.4-12.4) fL Immature Gran % (Auto) % Neut % (Auto) % Lymph % (Auto) % [place] % (Auto) % Eos % (Auto) % Baso % (Auto) % Neut # (Auto) (1.40-6.50) K/uL Lymph # (Auto) (1.2-3.4) K/uL [place] # (Auto) (0.11-0.59) K/uL Eos # (Auto) (0-0.50) K/uL Baso # (Auto) (0-0.2) K/uL Immature Gran # (Auto) (0.01-0.20) K/uL PT (9.0-12.0) Seconds INR (0.9-1.1) Sodium 137 Potassium 4.0 Chloride (98-107) mmol/L Carbon Dioxide (21-32) mmol/L Anion Gap BUN (6-23) mg/dl Creatinine (0.6-1.2) mg/dl Est Cr Clr Drug Dosing ml/min Est GFR ( Amer) ml/min Est GFR (Non-Af Amer) ml/min BUN/Creatinine Ratio (10-20) Glucose (70-99(Fasting)) mg/dl Calcium (8.6-10.3) mg/dl Total Bilirubin (0.2-1.0) mg/dl AST 18 ALT (7-52) U/L Alkaline Phosphatase (34-104) U/L Troponin I High Sens (0-14) pg/ml Total Protein (6.0-8.3) gm/dl Albumin (3.4-5.0) gm/dl Globulin (2.5-4.0) gm/dl Albumin/Globulin Ratio (0.9-2) Lipase (11-82) U/L Urine Color Yellow Urine Appearance Clear (Clear) Urine pH 7.0 (4.5-7.5) Ur Specific Page 1.017 (1.000-1.030) Urine Protein Negative (Negative) Urine Glucose (UA) Negative (Negative) Urine Ketones Negative (Negative) Urine Blood Negative (Negative) Urine Nitrite Negative (Negative) Urine Bilirubin Negative (Negative) Urine Urobilinogen Negative (Negative) Ur Leukocyte Esterase Negative (Negative) Administered Medications Discontinued Medications Sodium Chloride (Nss 1000ml) 1,000 mls @ 999 mls/hr IV .Q1H1M ONE Stop: 05/24/23 14:58 Last Infusion: 05/24/23 17:38 Dose: 999 mls/hr Documented By: Admin: 05/24/23 16:12 Dose: 999 mls/hr Documented By: NATALEE Imaging Data Radiologist's Impression: Chest X-Ray 05/24/23 13:58 XR chest 1V portable CLINICAL HISTORY: weakness COMPARISON STUDY: Chest radiograph February 03, 2023. FINDINGS: A left subclavian biventricular pacer/AICD is in place. Cardiomegaly is unchanged. Elevation of the left hemidiaphragm is unchanged. There is no pneumothorax or definite pleural effusion. Left basilar opacity favors atelectasis. There is no evidence for pulmonary edema. Degenerative changes of both shoulders are noted. IMPRESSION: 1. No acute cardiopulmonary findings. 2. Stable cardiomegaly without evidence for pulmonary edema. 3. Stable elevation of the left hemidiaphragm with left basilar opacity suggestive of atelectasis. ACT 112: Negative or not required by law. Electronically signed by: Rick King M.D. 05/24/2023 3:12 PM Discharge Plan Visit Data Chief Complaint: Weakness Stated Complaint: WEAKNESS, DIFF AMBULATING ED Provider: Familia Polanco Discharge Problem: Weak, Leukocytosis, Elevated troponin Forms Stand Alone Forms: [facility] Prescriptions Prescriptions: No Action (DME) Wheeled Walker [facility] [place] See Rx Instructions .Route Qty: 1 0RF Rx Instructions: rollator walker with seat & hand brakes on it isosorbide mononitrate 30 mg tablet extended release 24 hr 30 mg PO DAILY Qty: 90 1RF (DME) lancets [OneTouch Delica Plus Lancet] [address] [facility] [place] Rx Instructions .MEDSUPPLY Qty: 100 5RF Rx Instructions: Test blood glucose three times daily (DME) blood sugar diagnostic Strip See Rx Instructions .MEDSUPPLY Qty: 100 5RF Rx Instructions: Test blood glucose three times daily (DME) blood-glucose meter [OneTouch Ultra2 Meter] [facility] [place] See Rx Instructions .MEDSUPPLY Qty: 1 0RF Rx Instructions: Use to test blood glucose three times daily metformin 500 mg tablet 500 mg PO BID Qty: 180 1RF Rx Instructions: for blood sugars valsartan 40 mg tablet 40 mg PO BID Qty: 180 3RF (DME) pen needle, diabetic [Comfort EZ Pen [place]] 31 gauge x 3/16" needle See Rx Instructions .ROUTE .MEDSUPPLY Qty: 200 3RF Rx Instructions: Use two daily to inject insulin quetiapine [Seroquel] 25 mg tablet 12.5 mg PO HS Qty: 45 1RF Toujeo SoloStar U-300 Insulin 300 unit/mL (1.5 mL) insulin pen See Rx Instructions subcut PM Qty: 9 1RF Rx Instructions: 10 Units in the AM and 20 Units in the PM subcutaneously evening; (DME) FreeStyle Lilli 14 Day Sensor Kit See Rx Instructions .MEDSUPPLY Qty: 2 6RF Rx Instructions: Use to test blood glucose 3 times daily (DME) FreeStyle Lilli 14 Day [place] Misc See Rx Instructions .MEDSUPPLY Qty: 2 6RF Rx Instructions: Use to test blood glucose 3 times daily atorvastatin 20 mg tablet 20 mg PO HS Qty: 90 3RF aspirin 81 mg Tablet,Delayed Release (Dr/Ec) 81 mg PO QAM Qty: 30 0RF cyanocobalamin (vitamin B-12) 1,000 mcg capsule 1,000 mcg PO DAILY Qty: 30 0RF Rx Instructions: [id number] levothyroxine 50 mcg tablet 50 mcg PO DAILYBB metoprolol succinate 100 mg tablet extended release 24 hr 100 mg PO QAM sitagliptin phosphate 50 mg tablet 50 mg PO QAM potassium chloride 20 mEq tablet extended release 20 meq PO AMHS Xarelto 15 mg tablet 15 mg PO QPM acetaminophen [Tylenol] 325 mg Tablet 325 mg PO Q6 PRN (Reason: Pain) furosemide 40 mg Tablet 40 mg PO BID Rx Instructions: unknown compliance with this med per daughter Referrals Referrals: Chaz Borges III, CRNP [Primary Care Provider] -
[2023-05-24 14:41] LABS: Appearance Urine Clear (Clear); Bilirubin Urine Negative (Negative); Blood Urine Negative (Negative); Color Urine Yellow; Glucose Urine UA Negative (Negative); Ketones Urine Negative (Negative); Leukocyte Esterase Urine Negative (Negative); Nitrite Urine Negative (Negative); Protein Urine Negative (Negative); Specific Gravity Urine 1.017 (1.000-1.030); Urobilinogen Urine Negative (Negative)
[2023-05-24 14:47] LABS: Basophils # (auto) 0.05 K/uL (0-0.2); Basophils % (auto) 0.4 %; Eosinophils # (auto) 0.16 K/uL (0-0.50); Eosinophils % (auto) 1.4 %; Hematocrit (blood only) 43.2 % (37.0-47.0); Immature Granulocytes # (auto) 0.06 K/uL (0.01-0.20); Immature Granulocytes % (auto) 0.5 %; Lymphocytes # (auto) 2.68 K/uL (1.2-3.4); Lymphocytes % (auto) 22.7 %; Mean Corpuscular Hemoglobin 28.8 pg (25.0-34.0); Mean Corpuscular Hgb Conc 32.4 g/dL (32.0-36.0); Mean Corpuscular Volume 88.9 fL (80.0-100.0); Mean Platelet Volume 10.9 fL (9.4-12.4); Monocytes # (auto) 0.78 K/uL (0.11-0.59); Monocytes % (auto) 6.6 %; Neutrophils # (auto) 8.08 K/uL (1.40-6.50); Neutrophils % (auto) 68.4 %; Platelet Count 244 K/uL (130-400); RDW Coefficient of Variation 15.4 % (11.5-14.5); RDW Standard Deviation 49.9 fL (36.4-46.3); Red Blood Count 4.86 M/uL (4.20-5.40); White Blood Count 11.81 K/ul (4.8-10.8)
[2023-05-24 15:14] LABS: Alanine Aminotransferase 18 U/L (7-52); Albumin Globulin Ratio 1.3 (0.9-2); Albumin Level 4.2 gm/dl (3.4-5.0); Alkaline Phosphatase 114 U/L (34-104); BUN Creatinine Ratio 33.3 (10-20); Bilirubin,Total 1.4 mg/dl (0.2-1.0); Blood Urea Nitrogen 25 mg/dl (6-23); Calcium 10.3 mg/dl (8.6-10.3); Carbon Dioxide 28 mmol/L (21-32); Chloride 102 mmol/L (98-107); Creatinine Clr Calc Pharmacy 52.3 ml/min; Est GFR (African American) 84.8 ml/min; Est GFR (Non-African American) 73.2 ml/min; Globulin 3.2 gm/dl (2.5-4.0); Glucose 108 mg/dl (70-99(Fasting)); Lipase 35 U/L (11-82); Total Protein 7.4 gm/dl (6.0-8.3); Troponin I High Sensitivity 16.6 pg/ml (0-14)
--- NOTE | 2023-05-24 15:14 | XRay Report ---
XR chest 1V portable CLINICAL HISTORY: weakness COMPARISON STUDY: Chest radiograph February 03, 2023. FINDINGS: A left subclavian biventricular pacer/AICD is in place. Cardiomegaly is unchanged. Elevatio n of the left hemidiaphragm is unchanged. There is no pneumothorax or definite pleural effusion. Left basilar opacity favors atelectasis. There is no evidence for pulmonary edema. Degenerative changes o f both shoulders are noted. IMPRESSION: 1. No acute cardiopulmonary findings. 2. Stable cardiomegaly without evidence for pulmonary edema. 3. Stable elevation of the left hemidiaphragm with left basilar opacity suggestive of atelectasis. ACT 112: Negative or not required by law. Electronically signed by: Rick King M.D. 05/24/2023 3:12 PM
[2023-05-24 15:30] LABS: INR 1.2 (0.9-1.1); Prothrombin Time 12.7 Seconds (9.0-12.0)
--- NOTE | 2023-05-24 18:06 | History & Physical Report ---
Date of Service May 24, 2023 Assessment & Plan (1) Generalized weakness: Plan: -Admit to the PCU on tele -Currently hypertensive at but otherwise stable -Patient has been followed by Necrology for progressive focal motor weakness including progressive dysarthria and ataxia -Large workup from Neurology is still in process from 05/22 -Patient's family states that she has had a steep decline in clinical status over the past two weeks -Found to be Lyme IgG and IgM AB positive from 05/22, no other acute abnormalities noted on exam and workup today -S/P 1L NSS in the ED, will continue LR overnight as she is too high of an aspiration risk for PO intake at this time -Will try and restart Xarelto tomorrow if she improves with treatment of Lyme -BL SCD's for DVT PPX for now -NPO until she is evaluated by speech tomorrow, will keep head of bed elevated t o 30 degrees as recommended by outpatient Neurology note -AM CBC, CMP, Mag, PT/INR (2) HTN (hypertension): Plan: -Patient has been hypertensive with systolic BP in the 200's since arrival to the ED -Has been asymptomatic -Has not had her antihypertensives today per family -Will give 10 mg IV labetalol stat -Will continue with 5 mg IV labetalol q4h prn systolic BP > 200 mmhg while npo (3) Lyme disease: Plan: -Found to be Lyme IgG and IgM antibody positive -If truly positive this could be related to her acute decline over the past 2 weeks -Will start BID doxycycline IV tonight -Follow blood cultures (4) Progressive focal motor weakness: Plan: -Followed by Neurology -Continue to follow workup which is currently in process that her Neurology provider ordered on 05/22 -Neurology consulted -PT/OT consults placed (5) Atrial fibrillation: Plan: -ECG today showing ventricular paced rhythm -Continue Eliquis -Would continue PO metoprolol when she can tolerate po intake (6) Chronic diastolic congestive heart failure: Plan: -Appears dehydrated on exam -Hold lasix Imdur while NPO -Monitor volume status while on IV fluids -Monitor intake and output (7) Diabetes mellitus type 2 with complications: Plan: -Hold oral agents -Monitor BSG q6h while NPO, goal is 110-160 -Start 5 units lantus BID and CF of 50 for now while NPO -Adjust regimen as needed (8) Hypothyroidism: Plan: -TSH on 05/22 WNL -Continue levothyroxine when able Plan The patient was discussed with Dr. Cross at the time of the admission History of Present Illness Chief Complaint: Generalized weakness and Back Pain Primary Care Provider: Chaz Borges, ENEDELIA OLIVER Marylou is an 83-year-old female with past medical history of CAD, HFpEF, cardiomyopathy s/o BiV ICD, A. fib s/p ablation still on Xarelto, pulmonary hypertension, hypercholesterolemia, DM2, stroke, hypothyroidism and progressive focal motor weakness, ataxia, and dysarthria over the past 2 years who presented to the [facility] ED on 05/24 due to increased generalized weakness and back pain. In the ED the patient was initially found to be hypertensive at 202/97 with improvement to 175/87 without intervention; she has otherwise been stable. Labs in the ED today are significant for a leukocytosis of 11 with left shift of 8, INR of 1.2, glucose of 108, total bili of 1.4, initial high sen trop of 16, and negative UA. Chest xray was read as "1. No acute cardiopulmonary findings. 2. Stable cardiomegaly without evidence for pulmonary edema. 3. Stable elevation of the left hemidiaphragm with left basilar opacity suggestive of atelectasis.". Prior to admission the patient was given 1L NSS. Of Note, the patient follows with Neurology for her previous CVA and progressive weakness. They last saw the patient on 05/22 in clinic and obtained further workup of her progressive symptoms. The majority of the workup is still in process, however, she has been found to be Lyme IgG and IgM AB positive. At the time of the exam the patient was lying in bed in no acute distress, her family already left the ED at the time of my arrival. Per the last Neurology note, the patient has very slurred speech at baseline. I was able to obtain some history from her. She states that she feels very weak and has been having low back pain. She denies any other complaints at this time and was unable to provide more information. I was able to call and speak with her children, her Son is her POA. They state that the patient has had a steady clinical decline over the past two weeks. She was previously able to ambulate with the assistance of a rolling walker and only required minimal help with her ADL's. Over the past two weeks she has become so weak that she has been unable to walk over the past 3 days without significant assistance and was unable to eat or take oral medications today. They deny the patient having recent fevers or trauma. They believe that they need to place the patient in a chcf facility as they are unable to provide the increased level of care she requires. We discussed code status, at this time they would want the patient to be a DNR/DNI as her quality of life would be very poor if she were to go through CPR and/or intubation. Please refer to Dr. Cross's attestation for any changes to the treatment plan Allergies Allergy/AdvReac Type Severity Reaction Status Date / Time Penicillins Allergy Severe RASH,SWELLI Verified 05/22/23 12:58 NG Home Medications Medication Instructions Recorded Confirmed Type Wheeled Walker #1 ea 03/02/22 05/24/23 Rx isosorbide mononitrate 30 mg 30 mg PO DAILY #90 tabs 08/14/22 05/24/23 Rx tablet,extended release 24 hr aspirin 81 mg tablet,delayed 81 mg PO QAM #30 tabs 11/10/22 05/24/23 Rx release cyanocobalamin (vitamin B-12) 1,000 mcg PO DAILY #30 caps 11/10/22 05/24/23 Rx 1,000 mcg capsule blood sugar diagnostic #100 ea 11/13/22 05/24/23 Rx blood-glucose meter (OneTouch #1 ea 11/13/22 05/24/23 Rx Ultra2 Meter) lancets 30 gauge (OneTouch Delica #100 ea 11/13/22 05/24/23 Rx Plus Lancet) metformin 500 mg tablet 500 mg PO BID #180 tabs 01/12/23 05/24/23 Rx atorvastatin 20 mg tablet 20 mg PO HS #90 tabs 02/15/23 05/24/23 Rx flash glucose scanning reader #2 ea 02/15/23 05/24/23 Rx (FreeStyle Lilli 14 Day [place]) flash glucose sensor (FreeStyle #2 ea 02/15/23 05/24/23 Rx Lilli 14 Day Sensor kit) pen needle, diabetic 31 gauge x #200 ea 03/13/23 05/24/23 Rx 3/16" (Comfort EZ Pen [place]) valsartan 40 mg tablet 40 mg PO BID #180 tabs 03/13/23 05/24/23 Rx quetiapine 25 mg tablet (Seroquel) 12.5 mg PO HS #45 tabs 04/13/23 05/24/23 Rx insulin glargine U-300 conc 300 See Rx Instructions subcut PM #9 mL 05/10/23 05/24/23 Rx unit/mL (1.5 mL) subcutaneous pen (Toujeo SoloStar U-300 Insulin) acetaminophen 325 mg tablet 325 mg PO Q6 PRN Pain 05/24/23 05/24/23 History (Tylenol) furosemide 40 mg tablet 40 mg PO BID 05/24/23 05/24/23 History levothyroxine 50 mcg tablet 50 mcg PO DAILYBB 05/24/23 05/24/23 History metoprolol succinate 100 mg 100 mg PO QAM 05/24/23 05/24/23 History tablet,extended release 24 hr potassium chloride 20 mEq 20 meq PO AMHS 05/24/23 05/24/23 History tablet,extended release rivaroxaban 15 mg tablet (Xarelto) 15 mg PO QPM 05/24/23 05/24/23 History sitagliptin phosphate 50 mg tablet 50 mg PO QAM 05/24/23 05/24/23 History Past Med/Surg History Medical History Anticoagulant long-term use Atrial fibrillation CAD in [place] artery Cardiomyopathy Chronic diastolic congestive heart failure Chronic kidney disease (CKD), stage III (moderate) Cystocele 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 Diabetic peripheral neuropathy Diabetic retinopathy, nonproliferative Digoxin toxicity HTN (hypertension) Hypercholesterolemia Hypothyroidism Kidney stones LBBB (left bundle branch block) Mitral regurgitation Multiple joint pain Nocturnal hypoxia Psoriasis Pulmonary hypertension Restrictive lung disease Tricuspid valve insufficiency Surgical History History of appendectomy History of cholecystectomy History of hysterectomy S/P AV bibi ablation Status post implantation of automatic cardioverter/defibrillator (AICD) Status post implantation of automatic cardioverter/defibrillator (AICD) 09/14 SUZY Family History Family/Other Cancer Mother Diabetes Myocardial infarction Other Prostate cancer Denies family history of Ovarian cancer Breast cancer Colorectal cancer Social History Smoking Status: Never smoker Second Hand Exposure: No; Do You Dip or Chew Tobacco: No; Hx Alcohol Use: No Hx Substance Use: No Preferred Language: Bhutanese Communication Ability: Impaired Visual Impairment: No Limitations Hearing Ability: Normal Plating Foreman Required: No Beliefs That Will Affect Care: None marital status: Current Living Situation: Family Current Living Situation Comment: current occupational status: retired Feels Safe at Home: Yes Childhood Exposure to Second-Hand Smoke: No Diet: diabetic Diet Comment: diabetic Dental Care, Regularly: No Physical Activity Frequency: 5-6 Times per Week Seatbelt Use: never Sunscreen Use: No Assistive Devices: Cane, Glasses and Walker Physical Exam Physical Exam: Physical Exam: General: In no acute distress, older than stated age, malnourished, chronically ill-appearing HEENT: Normocephalic, atraumatic, no scleral icterus, pupils around round, symmetrical, and reactive to light, dry mucus membranes, trachea midline, no thyromegaly Chest/Pulm: No respiratory distress, symmetrical chest expansion, clear breath sounds throughout Cardiac: RRR, no murmurs noted Abdomen: Negative for ascites and bruising, normoactive bowel sounds, soft, non-tender to palpation throughout Musculoskeletal: Symmetrical and without signs of acute trauma, patient with symmetrical strength and ROM of the BL UE's, symmetrical but decreased ROM of the BL LE's due to weakness Extremities: Radial, dorsalis pedis, and posterior tibial pulses are intact and symmetrical, no edema noted in the BL LE's Skin: Warm, dry, no rashes , lesions, or scars noted Neuro: Alert and oriented to person and place only, not to month, year, or president, no focal defects, CN II-XII tested and intact, no tremors noted Psych: No acute distress, pleasantly confused, cooperative during exam Results & Data Results & Data Vital Signs (Past 12 Hours) Vital Signs Temp Pulse Pulse Resp BP Pulse Ox O2 Del Method 05/24/23 16:14 70 15 202/97 H 97 Room Air 05/24/23 15:14 36.9 C 70 20 202/89 H 97 Room Air 05/24/23 15:14 96 Room Air 05/24/23 14:03 93 H 05/24/23 13:58 94 H 18 97 Room Air 05/24/23 13:54 84 18 Laboratory Results Abnormal lab results 05/24/23 05/24/23 05/24/23 Range/Units 14:02 14:02 14:02 WBC 11.81 H (4.8-10.8) K/ul RDW Std Deviation 49.9 H (36.4-46.3) fL RDW Coeff of Luana 15.4 H (11.5-14.5) % Neut # (Auto) 8.08 H (1.40-6.50) K/uL Emmons # (Auto) 0.78 H (0.11-0.59) K/uL PT 12.7 H (9.0-12.0) Seconds INR 1.2 H (0.9-1.1) BUN 25 H (6-23) mg/dl BUN/Creatinine Ratio 33.3 H (10-20) Glucose 108 H (70-99(Fasting)) mg/dl Total Bilirubin 1.4 H (0.2-1.0) mg/dl Alkaline Phosphatase 114 H (34-104) U/L Troponin I High Sens 16.6 H (0-14) pg/ml Diagnostic Findings Chest X-Ray 05/24/23 13:58 XR chest 1V portable CLINICAL HISTORY: weakness COMPARISON STUDY: Chest radiograph February 03, 2023. FINDINGS: A left subclavian biventricular pacer/AICD is in place. Cardiomegaly is unchanged. Elevation of the left hemidiaphragm is unchanged. There is no pneumothorax or definite pleural effusion. Left basilar opacity favors atelectasis. There is no evidence for pulmonary edema. Degenerative changes of both shoulders are noted. IMPRESSION: 1. No acute cardiopulmonary findings. 2. Stable cardiomegaly without evidence for pulmonary edema. 3. Stable elevation of the left hemidiaphragm with left basilar opacity suggestive of atelectasis. ACT 112: Negative or not required by law. Electronically signed by: Rick King M.D. 05/24/2023 3:12 PM ECG Additional Comments: Ventricular-paced rhythm Abnormal ECG When compared with ECG of 13-MAY-2023 14:44, No significant change was found Code Status & VTE Plan Code Status DNR/DNI VTE Prophylaxis Plan VTE Prophylaxis will be ordered: Yes Supervising Physician Co-Signing Physician Notes I personally saw and examined the patient. I verified all robbins points and agree with Ray Armendariz PA-C with the following exceptions and/or additions: 83 year old female presents to the ER with acute on chronic progressive dysphagia, dysphasia, weakness and . Recently seen by neurology on May 22 with outpatient workup mainly concerning for lyme disease although appears to be more chronic given similar symptoms from neurology consult in October. O/E Alert to voice but falls asleep easily, EOMI intact, PERRL, HS RRR, no murmurs, Chest CTAB, no facial droop, no unilateral extremity weakness. A/P Generalized weakness with dysphagia, dysphasia concerning for progressive supranuclear palsy - possible lyme causing more acute deterioration over last 2 weeks and will treat with IV doxycycline. NPO prior to SLT assessment. IV fluids. Switch medications to IV as able. Consult neurology for ongoing recommendations PG Care Time/CCT Total # of Minutes Spent Total Time Spent with Patient: Total time spent is greater than 50% in coordination of care (as documented) at patient's floor/unit and/or counseling patient: Coding [place] [address] INT INP/OBS CARE 3/75MIN Patient Type Established Medical Decision Making High Complexity Diagnoses Generalized weakness R53.1 HTN (hypertension) I10 Lyme disease A69.20 Progressive focal motor weakness R53.1 Atrial fibrillation I48.91 Chronic diastolic congestive heart failure I50.32 Diabetes mellitus type 2 with complications E11.8 Hypothyroidism E03.9
[2023-05-24] MEDS ORDERED: DOXYCYCLINE HYCLATE 100 MG in DEXTROSE 5% 100 ML IV STA (18:24)
[2023-05-24] MEDS ORDERED: GLUCOSE 10 TAB/TUBE PO PRN (18:26)
[2023-05-24] MEDS ORDERED: GLUCAGON FOR INJ 1 MG VIAL SQ PRN (18:26)
[2023-05-24] MEDS ORDERED: GLUCOSE 40% GEL 15 GM TUBE PO PRN (18:26)
[2023-05-24] MEDS ORDERED: CARBOHYDRATES FOR HYPOGLYCEMIA PO PRN (18:26)
[2023-05-24] MEDS ORDERED: LABETALOL HCL IV 5 MG/ML 20ML IV STA ×2 (18:43)
[2023-05-24] MEDS ORDERED: ACETAMINOPHEN 1,000 MG/100 ML VIAL IV STA (18:53)
[2023-05-24] MEDS ORDERED: LIDOCAINE 5% 1 PATCH TD STA (18:53)
[2023-05-24] MEDS: LACTATED RINGER'S 1,000 ML IV SCH (20:10)
[2023-05-24] MEDS: INSULIN ASPART PER UNIT CHARGE SC SCH (20:36)
[2023-05-24] MEDS: LANTUS PER UNIT CHARGE SQ SCH (20:36)
[2023-05-24] MEDS ORDERED: RIVAROXABAN 15 MG TAB PO SCH (22:51)
[2023-05-25] MEDS: INSULIN ASPART PER UNIT CHARGE SC SCH ×4 (01:27→18:26)
[2023-05-25 05:47] LABS: Albumin Globulin Ratio 1.4 (0.9-2); Albumin Level 4.1 gm/dl (3.4-5.0); BUN Creatinine Ratio 24.2 (10-20); Bilirubin,Total 1.7 mg/dl (0.2-1.0); Calcium 10.1 mg/dl (8.6-10.3); Creatinine Clr Calc Pharmacy 59.4 ml/min; Est GFR (Non-African American) 81.1 ml/min; Magnesium 1.7 mg/dl (1.7-2.4); Potassium 3.7 mmol/L (3.5-5.1); Total Protein 7.1 gm/dl (6.0-8.3)
[2023-05-25 05:55] LABS: INR 1.1 (0.9-1.1); Prothrombin Time 11.7 Seconds (9.0-12.0)
[2023-05-25] MEDS: LEVOTHYROXINE SODIUM 50 MCG TABLET PO SCH (06:26)
[2023-05-25] MEDS: LACTATED RINGER'S 1,000 ML IV SCH (06:32)
[2023-05-25] MEDS: LABETALOL HCL IV 5 MG/ML 20ML IV PRN ×2 (07:10→14:05)
--- NOTE | 2023-05-25 07:53 | XRay Report ---
LUMBAR SPINE 3 VIEWS CLINICAL HISTORY: Low back pain. FINDINGS: 3 views of the lumbar spine are compared to study dated 05/11/2023. The skeletal structures are osteopenic. There is no radiographic evidence of acute fracture or malalignment. Vertebral body h eight is maintained throughout the lumbar spine. There is minimal anterolisthesis at L4-L5. Alignment is otherwise preserved. Large anterior and lateral marginal osteophytes are seen throughout. The tra nsverse and spinous processes appear intact. Mild lumbar levocurvature is centered at L3. Advanced fa cet arthropathy is seen in the mid to lower lumbar region. There is moderate multilevel degenerative disc space narrowing with multilevel endplate sclerosis. This is greatest at L1-L2 and L5-S1. The vis ualized bony pelvis appears intact. There is degenerative sclerosis of the sacroiliac joints. Advance d atherosclerotic calcification is noted in the abdominal aorta. Cholecystectomy clips are seen in th e right upper quadrant. Excreted IV contrast is present in the bladder. There is moderate colonic fec al retention. No bowel obstruction is seen. IMPRESSION: 1. No acute bony abnormality is seen involving the lumbar spine. 2. Osteopenia and spondylotic change as above. Dictated: 05/25/2023 7:27 AM Transcribed: 05/25/2023 7:44 AM Thai [id number] Electronically signed by: Kenan Oleary M.D. 05/25/2023 7:50 AM
[2023-05-25 09:07] LABS: Basophils # (auto) 0.07 K/uL (0-0.2); Basophils % (auto) 0.6 %; Eosinophils # (auto) 0.19 K/uL (0-0.50); Eosinophils % (auto) 1.7 %; Hematocrit (blood only) 43.2 % (37.0-47.0); Hemoglobin 13.8 g/dl (12.0-16.0); Immature Granulocytes # (auto) 0.06 K/uL (0.01-0.20); Immature Granulocytes % (auto) 0.5 %; Lymphocytes # (auto) 2.18 K/uL (1.2-3.4); Lymphocytes % (auto) 19.3 %; Mean Corpuscular Hemoglobin 28.7 pg (25.0-34.0); Mean Corpuscular Hgb Conc 31.9 g/dL (32.0-36.0); Mean Corpuscular Volume 89.8 fL (80.0-100.0); Mean Platelet Volume 11.6 fL (9.4-12.4); Monocytes # (auto) 0.68 K/uL (0.11-0.59); Neutrophils # (auto) 8.11 K/uL (1.40-6.50); Neutrophils % (auto) 71.9 %; Platelet Count 242 K/uL (130-400); RDW Coefficient of Variation 15.2 % (11.5-14.5); RDW Standard Deviation 49.9 fL (36.4-46.3); Red Blood Count 4.81 M/uL (4.20-5.40); White Blood Count 11.29 K/ul (4.8-10.8)
--- NOTE | 2023-05-25 09:37 | Neurology Consultation ---
Date of Consultation May 25, 2023 Assessment & Plan (1) Lyme disease: Patient presents with progressive weakness and overall decline, I agree with the workup outlined by outpatient neurology. I am concerned this may be lyme disease related and but would switch to ceftriaxone from doxy as there is likely AUTOGLAZIER i nvolvement. Would obtain lumbar puncture as well in lieu of further imaging studies. Do not suspect stroke, patient is otherwise already anticoagulated and weakness has been progressive, not abrupt in onset. The differential also includes GBS variants though would expect EMG to have been diagnostic - LP will also be helpful in this regard. -- Switch doxy to ceftriaxone -- LP for cell count, protein, glucose, CSF Lyme, VZV, biofire viral panel, cytology -- We will continue to follow LP results Telehealth Consultation Telehealth Information Telehealth Information: I performed this visit using a real-time telehealth connection between my location and the patients location ([facility]). After connecting through interactive tele-video, patient was identified by name and date of and/or wristband check.Patient (or authorized healthcare lead generation representative) was informed that this was a telemedicine visit and it was being conducted confidentially over secure lines. My office door was closed and no one else was present in the room with me.Patient (or authorized healthcare lead generation representative) provided consent to proceed with the visit, expressed an understanding of privacy and security of the telemedicine visit, and gave permission to have a hospital lead generation representative in the room in order to assist with the visit and to conduct portions of the visit, as needed. I informed the patient (or authorized healthcare lead generation representative) that I reviewed their record and presented the opportunity for them to ask any questions regarding the visit today. The patient agreed to participate. History of Present Illness Reason for Consultation: Generalized weakness and decline Requesting Physician: Dr. Malagon Attending Physician: Luisito Malagon History of Present Illness Marylou Luke is an 83 yo F presenting with worsening weakness and decline with severe ataxic speech and altered mental status. The patient is unable to contribute to the history this morning other than to say she is feeling better. She has been followed by neurology as an outpatient and had a recent ED visit on 05/13. Outpatient workup revealed positive lyme titer IGG and IGM. 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 Per notes she has been wheelchair bound though was able to use a walker up to a week ago. She continues to take xarelto and aspirin for her afib. Allergies Allergy/AdvReac Type Severity Reaction Status Date / Time Penicillins Allergy Severe RASH,SWELLI Verified 05/22/23 12:58 NG Home Medications Medication Instructions Recorded Confirmed Type Wheeled Walker #1 ea 03/02/22 05/24/23 Rx isosorbide mononitrate 30 mg 30 mg PO DAILY #90 tabs 08/14/22 05/24/23 Rx tablet,extended release 24 hr aspirin 81 mg tablet,delayed 81 mg PO QAM #30 tabs 11/10/22 05/24/23 Rx release cyanocobalamin (vitamin B-12) 1,000 mcg PO DAILY #30 caps 11/10/22 05/24/23 Rx 1,000 mcg capsule blood sugar diagnostic #100 ea 11/13/22 05/24/23 Rx blood-glucose meter (TalentEarthTouch #1 ea 11/13/22 05/24/23 Rx Ultra2 Meter) lancets 30 gauge (OneTouch Delica #100 ea 11/13/22 05/24/23 Rx Plus Lancet) metformin 500 mg tablet 500 mg PO BID #180 tabs 01/12/23 05/24/23 Rx atorvastatin 20 mg tablet 20 mg PO HS #90 tabs 02/15/23 05/24/23 Rx flash glucose scanning reader #2 ea 02/15/23 05/24/23 Rx (FreeStyle Lilli 14 Day [place]) flash glucose sensor (FreeStyle #2 ea 02/15/23 05/24/23 Rx Lilli 14 Day Sensor kit) pen needle, diabetic 31 gauge x #200 ea 03/13/23 05/24/23 Rx 01/11" (Comfort EZ Pen [place]) valsartan 40 mg tablet 40 mg PO BID #180 tabs 03/13/23 05/24/23 Rx quetiapine 25 mg tablet (Seroquel) 12.5 mg PO HS #45 tabs 04/13/23 05/24/23 Rx insulin glargine U-300 conc 300 See Rx Instructions subcut PM #9 mL 05/10/23 05/24/23 Rx unit/mL (1.5 mL) subcutaneous pen (Toujoelo SoloStar U-300 Insulin) acetaminophen 325 mg tablet 325 mg PO Q6 PRN Pain 05/24/23 05/24/23 History (Tylenol) furosemide 40 mg tablet 40 mg PO BID 05/24/23 05/24/23 History levothyroxine 50 mcg tablet 50 mcg PO DAILYBB 05/24/23 05/24/23 History metoprolol succinate 100 mg 100 mg PO QAM 05/24/23 05/24/23 History tablet,extended release 24 hr potassium chloride 20 mEq 20 meq PO AMHS 05/24/23 05/24/23 History tablet,extended release rivaroxaban 15 mg tablet (Xarelto) 15 mg PO QPM 05/24/23 05/24/23 History sitagliptin phosphate 50 mg tablet 50 mg PO QAM 05/24/23 05/24/23 History Patient History Medical History Anticoagulant long-term use Atrial fibrillation CAD in [place] artery Cardiomyopathy Chronic diastolic congestive heart failure Chronic kidney disease (CKD), stage III (moderate) Cystocele 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 Diabetic peripheral neuropathy Diabetic retinopathy, nonproliferative Digoxin toxicity HTN (hypertension) Hypercholesterolemia Hypothyroidism Kidney stones LBBB (left bundle branch block) Mitral regurgitation Multiple joint pain Nocturnal hypoxia Psoriasis Pulmonary hypertension Restrictive lung disease Tricuspid valve insufficiency Surgical History History of appendectomy History of cholecystectomy History of hysterectomy S/P AV bibi ablation Status post implantation of automatic cardioverter/defibrillator (AICD) Status post implantation of automatic cardioverter/defibrillator (AICD) Family History Family/Other Cancer Mother Diabetes Myocardial infarction Other Prostate cancer Denies family history of Ovarian cancer Breast cancer Colorectal cancer Social History Smoking Status: Never smoker Second Hand Exposure: No; Do You Dip or Chew Tobacco: No; Hx Alcohol Use: No Hx Substance Use: No Preferred Language: Tajik Communication Ability: Impaired Visual Impairment: No Limitations Hearing Ability: Normal Look Out Tower Fire Watcher Required: No Beliefs That Will Affect Care: None marital status: Current Living Situation: Spouse Current Living Situation Comment: current occupational status: retired Feels Safe at Home: Yes Childhood Exposure to Second-Hand Smoke: No Diet: diabetic Diet Comment: diabetic Dental Care, Regularly: No Physical Activity Frequency: 5-6 Times per Week Seatbelt Use: never Sunscreen Use: No Assistive Devices: Walker Review of Systems +Weakness Physical Exam Neurological Examination: Mental Status: Awake but requires constant stim to maintain alertness. severely dysarthic speech - ataxic vs flaccid. Comprehension intact, able to follow simple commands with prompting. Cranial Nerves: II: pupils 3/3 to 2/2 III/IV/: Versions intact without nystagmus, no gaze preference. VII: Facial expression symmetric VIII: Hearing intact to voice Motor: Strength was symmetric and antigravity in the upper extremities. Reflexes: Unable to assess over telemedicine Results & Data Vital Signs (Past 12 Hours) Vital Signs Pulse Resp BP Pulse Ox Pulse Ox O2 Del Method O2 Del Method 05/25/23 08:00 179/91 H 99 Room Air 05/25/23 07:52 71 23 184/121 H 99 Room Air 05/25/23 07:40 70 22 189/85 H 98 Room Air 05/25/23 07:31 70 19 188/88 H 100 Room Air 05/25/23 07:21 71 22 160/72 H 97 Room Air 05/25/23 07:12 70 17 201/62 H 97 Room Air 05/25/23 07:05 223/82 H 05/25/23 07:01 242/86 H 05/25/23 07:10 70 223/82 H 05/25/23 06:27 70 20 214/99 H 96 Room Air 05/25/23 05:18 71 05/25/23 01:10 73 23 05/25/23 01:00 74 17 05/25/23 01:00 197/91 H 05/25/23 00:50 75 96 05/25/23 00:40 70 14 05/25/23 00:30 71 05/25/23 00:30 184/78 H 05/25/23 00:20 80 16 05/25/23 00:10 71 22 05/25/23 00:01 75 13 05/25/23 00:01 173/77 H 05/25/23 00:00 70 24 05/24/23 23:50 71 18 05/24/23 23:40 70 19 05/24/23 23:30 75 23 05/24/23 23:30 182/92 H 05/24/23 23:20 84 21 99 05/24/23 23:10 74 20 99 05/24/23 23:00 71 16 97 05/24/23 23:00 163/72 H 05/24/23 22:50 70 97 05/24/23 22:40 71 19 05/24/23 22:31 181/84 H 05/24/23 22:31 76 23 05/24/23 22:30 80 23 05/24/23 22:20 70 15 05/24/23 22:10 70 96 05/24/23 22:00 71 21 05/24/23 22:00 168/76 H 05/24/23 21:50 72 16 05/24/23 21:40 70 12 05/24/23 22:51 96 Room Air 05/24/23 22:06 73 Laboratory Results Abnormal lab results 05/24/23 05/24/23 05/24/23 Range/Units 14:02 14:02 14:02 WBC 11.81 H (4.8-10.8) K/ul MCHC (32.0-36.0) g/dL RDW Std Deviation 49.9 H (36.4-46.3) fL RDW Coeff of Luana 15.4 H (11.5-14.5) % Neut # (Auto) 8.08 H (1.40-6.50) K/uL Owsley # (Auto) 0.78 H (0.11-0.59) K/uL PT 12.7 H (9.0-12.0) Seconds INR 1.2 H (0.9-1.1) BUN 25 H (6-23) mg/dl BUN/Creatinine Ratio 33.3 H (10-20) Glucose 108 H (70-99(Fasting)) mg/dl POC Glucose (70-99) mg/dl Total Bilirubin 1.4 H (0.2-1.0) mg/dl Alkaline Phosphatase 114 H (34-104) U/L Troponin I High Sens 16.6 H (0-14) pg/ml 05/25/23 05/25/23 05/25/23 Range/Units 05:02 05:02 06:31 WBC 11.29 H (4.8-10.8) K/ul MCHC 31.9 L (32.0-36.0) g/dL RDW Std Deviation 49.9 H (36.4-46.3) fL RDW Coeff of Luana 15.2 H (11.5-14.5) % Neut # (Auto) 8.11 H (1.40-6.50) K/uL [place]ley # (Auto) 0.68 H (0.11-0.59) K/uL PT (9.0-12.0) Seconds INR (0.9-1.1) BUN (6-23) mg/dl BUN/Creatinine Ratio 24.2 H (10-20) Glucose (70-99(Fasting)) mg/dl POC Glucose 121 H (70-99) mg/dl Total Bilirubin 1.7 H (0.2-1.0) mg/dl Alkaline Phosphatase 108 H (34-104) U/L Troponin I High Sens (0-14) pg/ml Diagnostic Findings CT/CTA - 716 - Unremarkable MRI brain 01/30 - Unremarkable MR C and L spine 11/07 - Unremarkable
[2023-05-25] MEDS: DOXYCYCLINE HYCLATE 100 MG in DEXTROSE 5% 100 ML IV SCH ×2 (09:51→19:43)
[2023-05-25] MEDS: METOPROLOL SUCC 50MG EXT REL TAB PO SCH (09:56)
[2023-05-25] MEDS: ASPIRIN 81 MG ECTAB PO SCH (09:56)
[2023-05-25] MEDS: LANTUS PER UNIT CHARGE SQ SCH ×2 (10:20→21:11)
--- NOTE | 2023-05-25 10:27 | Electrocardiogram Report ---
Test Reason : Blood Pressure : / mmHG Vent. Rate : 083 BPM Atrial Rate : 084 BPM P-R Int : 000 ms QRS Dur : 118 ms QT Int : 396 ms P-R-T Axes : 000 265 076 degrees QTc Int : 465 ms Ventricular-paced rhythm Abnormal ECG When compared with ECG of 13-MAY-2023 14:44, No significant change was found Confirmed by Elgin Shrestha ([id number]) on 05/25/2023 10:26:47 AM Referred By: REFERRED SELF Confirmed By:Elgin Shrestha
[2023-05-25 14:19] LABS: Total Protein CSF 104.4 mg/dl (15-45)
[2023-05-25 14:22] LABS: Appearance CSF Cloudy; CSF Count Tube # 3; CSF Xanthrochromic Xanthochromic; Color CSF Orange; Mononuclear WBC CSF Auto 80.8 %; Polynuclear WBC CSF Auto 19.2 %; Red Blood Cell CSF Auto 24000 /uL (0-)
[2023-05-25 14:24] LABS: White Blood Cell CSF Auto 132 /uL (0-5)
[2023-05-25 15:19] LABS: Hematocrit (blood only) 41.5 % (37.0-47.0); Hemoglobin 13.7 g/dl (12.0-16.0); Mean Corpuscular Volume 87.7 fL (80.0-100.0); Mean Platelet Volume 10.8 fL (9.4-12.4); Platelet Count 221 K/uL (130-400); RDW Coefficient of Variation 15.1 % (11.5-14.5); RDW Standard Deviation 48.8 fL (36.4-46.3); Red Blood Count 4.73 M/uL (4.20-5.40); White Blood Count 10.94 K/ul (4.8-10.8)
--- NOTE | 2023-05-25 15:24 | Fluoroscopy Report ---
FLUOROSCOPICALLY GUIDED LUMBAR PUNCTURE CLINICAL HISTORY: altered mental status/ FLUOROSCOPY TIME: 0.2 minutes. Ka,r: 2.1 mGy FLUOROSCOPY IMAGES: 1 PROCEDURE: The procedure, risks and benefits were discussed with the patient including the risk of s sierra headache, bleeding and infection. The patient agreed to the procedure and informed written cons ent was obtained. The procedure was performed by Dr. Ovalle following a timeout. The right L3-L4 i nterlaminar space was targeted. Skin overlying the space was prepped and draped in the usual sterile fashion and local anesthesia was achieved with 1% lidocaine. Under intermittent fluoroscopic guidance , a 20-gauge x 3 1/2 in. Sprotte needle was inserted into the thecal sac. A total of 10 cc of serosan guineous cerebral spinal fluid was obtained and spread amongst 4 vials. The patient tolerated the pro cedure well. There were no immediate complications. The specimens were sent to the laboratory at the request of the referring physician. IMPRESSION: Successful fluoroscopic guided lumbar puncture with removal of 10 cc of serosanguineous c erebral spinal fluid. No immediate complications. ACT 112: Negative or not required by law. Electronically signed by: Kailash Ovalle M.D. 05/25/2023 3:23 PM
[2023-05-25 15:35] LABS: Cryptococcus neoformans/ga PCR Not Detected (NotDetected); Cytomegalovirus PCR Not Detected (NotDetected); Enterovirus PCR Not Detected (NotDetected); Escherichia coli K1 PCR Not Detected (NotDetected); Haemophilius influenzae PCR Not Detected (NotDetected); Herpes Simplex Virus 1 PCR Not Detected (NotDetected); Herpes Simplex Virus 2 PCR Not Detected (NotDetected); Human Herpes Virus 6 PCR Not Detected (NotDetected); Human Parechovirus PCR Not Detected (NotDetected); Listeria monocytogenes PCR Not Detected (NotDetected); Neisseria meningitidis PCR Not Detected (NotDetected); Streptococcus agalactiae PCR Not Detected (NotDetected); Streptococcus pneumoniae PCR Not Detected (NotDetected); Varicella Zoster Virus PCR Not Detected (NotDetected)
[2023-05-25 15:52] LABS: Albumin Level 3.9 gm/dl (3.4-5.0); Bilirubin,Total 1.7 mg/dl (0.2-1.0); Calcium 9.9 mg/dl (8.6-10.3); Potassium 3.7 mmol/L (3.5-5.1)
[2023-05-25 15:58] LABS: Albumin Globulin Ratio 1.5 (0.9-2); BUN Creatinine Ratio 21.3 (10-20); Creatinine Clr Calc Pharmacy 64.3 ml/min; Est GFR (African American) 96.5 ml/min; Est GFR (Non-African American) 83.2 ml/min; Globulin 2.6 gm/dl (2.5-4.0); Total Protein 6.5 gm/dl (6.0-8.3)
[2023-05-25] MEDS ORDERED: ACETAMINOPHEN 1,000 MG/100 ML VIAL IV STA (19:32)
[2023-05-25] MEDS ORDERED: HYDROmorphone INJ 0.5 MG/0.5 ML SYR IV STA (21:40)
--- NOTE | 2023-05-25 22:02 | Hospitalist Progress Note ---
Date of Service May 25, 2023 Assessment & Plan (1) Generalized weakness: Plan: Lyme meningitis -Admit to the PCU on tele -Currently hypertensive at but otherwise stable -Patient has been followed by Necrology for progressive focal motor weakness including progressive dysarthria and ataxia -Large workup from Neurology is still in process from 05/22 -Patient's family states that she has had a steep decline in clinical status over the past two weeks -Found to be Lyme IgG and IgM AB positive from 05/22, no other acute abnormalities noted on exam and workup today -S/P 1L NSS in the ED, will continue LR overnight as she is too high of an aspiration risk for PO intake at this time -will continue IV doxy and monitor her clinical progression, if no improvement will transition to cephalosporin. HOwever, there is concern regarding allergy to penicillin. -Will try and restart Xarelto tomorrow if she improves with treatment of Lyme -BL SCD's for DVT PPX for now -NPO until she is evaluated by speech tomorrow, will keep head of bed elevated to 30 degrees as recommended by outpatient Neurology note -AM CBC, CMP, Mag, PT/INR (2) HTN (hypertension): Plan: -Patient has been hypertensive with systolic BP in the 200's since arrival to the ED -Has been asymptomatic -Has not had her antihypertensives today per family -Will give 10 mg IV labetalol stat -Will continue with 5 mg IV labetalol q4h prn systolic BP > 200 mmhg while npo (3) Lyme disease: Plan: -Found to be Lyme IgG and IgM antibody positive -If truly positive this could be related to her acute decline over the past 2 weeks -Will continue BID doxycycline IV tonight -Follow blood cultures (4) Progressive focal motor weakness: Plan: -Followed by Neurology -Continue to follow workup which is currently in process that her Neurology provider ordered on 05/22 -Neurology consulted -PT/OT consults placed (5) Atrial fibrillation: Plan: -ECG today showing ventricular paced rhythm -Continue Eliquis -Would continue PO metoprolol when she can tolerate po intake (6) Chronic diastolic congestive heart failure: Plan: -Appears dehydrated on exam -Hold lasix Imdur while NPO -Monitor volume status while on IV fluids -Monitor intake and output (7) Diabetes mellitus type 2 with complications: Plan: -Hold oral agents -Monitor BSG q6h while NPO, goal is 110-160 -Start 5 units lantus BID and CF of 50 for now while NPO -Adjust regimen as needed (8) Hypothyroidism: Plan: -TSH on 05/22 WNL -Continue levothyroxine when able Admission and Anticipated Discharge Date Admission Date: May 25, 2023 Subjective Patient is confused, complaining of a headache. Family is at bedside. Review of Systems Review of Systems: All systems reviewed & are unremarkable except as noted in HPI & below Physical Exam Physical Exam: General: In no acute distress, older than stated age, malnourished, chronically ill-appearing HEENT: Normocephalic, atraumatic Chest/Pulm: No respiratory distress, symmetrical chest expansion, clear breath sounds throughout Cardiac: RRR, no murmurs noted Abdomen: Negative for ascites and bruising, normoactive bowel sounds, soft, non-tender to palpation throughout Musculoskeletal: Symmetrical and without signs of acute trauma, patient with symmetrical strength and ROM of the BL UE's, symmetrical but decreased ROM of the BL LE's due to weakness Extremities: Radial, dorsalis pedis, and posterior tibial pulses are intact and symmetrical, no edema noted in the BL LE's Skin: Warm, dry, no rashes , lesions, or scars noted Neuro: confused Psych: No acute distress, pleasantly confused, cooperative during exam Results & Data Results & Data Vital Signs (Past 12 Hours) Vital Signs Temp Pulse Pulse Resp BP BP Pulse Ox 05/25/23 19:26 36.6 C 73 20 207/94 H 100 05/25/23 17:00 36.7 C 76 20 193/78 H 96 05/25/23 15:02 70 19 97 05/25/23 15:02 201/ H 05/25/23 14:17 71 15 98 05/25/23 14:17 199/85 H 05/25/23 14:11 70 22 97 05/25/23 14:11 203/84 H 05/25/23 14:27 70 199/85 H 05/25/23 14:01 / H 05/25/23 14:01 70 20 98 05/25/23 14:05 70 / H 05/25/23 12:33 201/93 H 05/25/23 12:33 70 21 98 05/25/23 12:21 36.5 C 14 201/93 H 97 05/25/23 11:40 70 21 227/89 H 98 05/25/23 10:02 36.9 C 70 17 187/64 H 98 O2 Del Method 05/25/23 19:26 Room Air 05/25/23 17:00 Room Air 05/25/23 15:02 05/25/23 15:02 05/25/23 14:17 05/25/23 14:17 05/25/23 14:11 05/25/23 14:11 05/25/23 14:27 05/25/23 14:01 05/25/23 14:01 05/25/23 14:05 05/25/23 12:33 05/25/23 12:33 05/25/23 12:21 Room Air 05/25/23 11:40 Room Air 05/25/23 10:02 Room Air PG Care Time/CCT Total # of Minutes Spent Total Time Spent with Patient: Total time spent is greater than 50% in coordination of care (as documented) at patient's floor/unit and/or counseling patient: Coding Level of Care Code 07920 SUB INP/OBS CARE 3/50MIN Diagnoses Generalized weakness R53.1 HTN (hypertension) I10 Lyme disease A69.20 Progressive focal motor weakness R53.1 Atrial fibrillation I48.91 Chronic diastolic congestive heart failure I50.32 Diabetes mellitus type 2 with complications E11.8 Hypothyroidism E03.9 Time Spent (min) 50
[2023-05-26] MEDS: INSULIN ASPART PER UNIT CHARGE SC SCH ×5 (00:35→21:27)
[2023-05-26] MEDS ORDERED: HYDROmorphone INJ 0.5 MG/0.5 ML SYR IV STA (01:35)
[2023-05-26] MEDS: LEVOTHYROXINE SODIUM 50 MCG TABLET PO SCH (05:21)
[2023-05-26] MEDS: LABETALOL HCL IV 5 MG/ML 20ML IV PRN ×2 (09:02→15:31)
[2023-05-26] MEDS: ASPIRIN 81 MG ECTAB PO SCH (09:05)
[2023-05-26] MEDS: METOPROLOL SUCC 50MG EXT REL TAB PO SCH ×2 (09:05→14:44)
[2023-05-26] MEDS: LANTUS PER UNIT CHARGE SQ SCH ×2 (09:21→21:26)
[2023-05-26 10:10] LABS: Basophils # (auto) 0.05 K/uL (0-0.2); Basophils % (auto) 0.4 %; Eosinophils # (auto) 0.19 K/uL (0-0.50); Eosinophils % (auto) 1.6 %; Hematocrit (blood only) 44.3 % (37.0-47.0); Hemoglobin 14.6 g/dl (12.0-16.0); Immature Granulocytes # (auto) 0.07 K/uL (0.01-0.20); Immature Granulocytes % (auto) 0.6 %; Lymphocytes # (auto) 1.93 K/uL (1.2-3.4); Lymphocytes % (auto) 16.4 %; Mean Corpuscular Hemoglobin 28.5 pg (25.0-34.0); Mean Corpuscular Volume 86.4 fL (80.0-100.0); Monocytes # (auto) 0.67 K/uL (0.11-0.59); Monocytes % (auto) 5.7 %; Neutrophils # (auto) 8.83 K/uL (1.40-6.50); Neutrophils % (auto) 75.3 %; Platelet Count 273 K/uL (130-400); RDW Coefficient of Variation 14.7 % (11.5-14.5); Red Blood Count 5.13 M/uL (4.20-5.40); White Blood Count 11.74 K/ul (4.8-10.8)
[2023-05-26 10:25] LABS: Alanine Aminotransferase 15 U/L (7-52); Albumin Globulin Ratio 1.3 (0.9-2); Albumin Level 3.9 gm/dl (3.4-5.0); Alkaline Phosphatase 107 U/L (34-104); Anion Gap 12 (3-11); Aspartate Aminotransferase 18 U/L (13-39); BUN Creatinine Ratio 20.6 (10-20); Bilirubin,Total 1.9 mg/dl (0.2-1.0); Blood Urea Nitrogen 13 mg/dl (6-23); C Reactive Protein < 0.50 mg/dl (0-0.5); Calcium 10.3 mg/dl (8.6-10.3); Carbon Dioxide 25 mmol/L (21-32); Chloride 98 mmol/L (98-107); Creatinine Clr Calc Pharmacy 62.2 ml/min; Est GFR (African American) 95.5 ml/min; Est GFR (Non-African American) 82.4 ml/min; Globulin 3.1 gm/dl (2.5-4.0); Glucose 132 mg/dl (70-99(Fasting)); Magnesium 1.7 mg/dl (1.7-2.4); Potassium 3.5 mmol/L (3.5-5.1); Sodium 135 mmol/L (136-145)
[2023-05-26 10:33] LABS: INR 1.1 (0.9-1.1); Prothrombin Time 11.9 Seconds (9.0-12.0)
[2023-05-26] MEDS: DOXYCYCLINE HYCLATE 100 MG in DEXTROSE 5% 100 ML IV SCH (11:15)
[2023-05-26] MEDS ORDERED: RIVAROXABAN 15 MG TAB PO ONE (12:15)
[2023-05-26] MEDS: cefTRIAXone SODIUM 2,000 MG in DEXTROSE 5% 50 ML IV SCH (13:20)
[2023-05-26] MEDS: VALSARTAN 80 MG TAB PO SCH ×2 (13:56→20:45)
[2023-05-26] MEDS ORDERED: QUEtiapine FUMARATE 25 MG TABLET PO PRN (14:24)
--- NOTE | 2023-05-26 14:31 | Hospitalist Progress Note ---
Date of Service May 26, 2023 Assessment & Plan (1) Generalized weakness: Plan: Lyme meningitis Given LP on 05/25 [facility] showed elevated protein and WBC. -remain PCU on tele -continues to be Hypertensive. -Patient has been followed by Neurology for progressive focal motor weakness including progressive dysarthria and ataxia -Large workup from Neurology is still in process from 05/22 -Patient's family states that she has had a steep decline in clinical status over the past two weeks -Found to be Lyme IgG and IgM AB positive from 05/22, no other acute abnormalities noted on exam and workup today -Now cleared by speech -transitioned to ceftriaxone IV given lack of improvement. HOwever, there is concern regarding allergy to penicillin. -restarted xarelto -BL SCD's for DVT PPX for now -will keep head of bed elevated to 30 degrees as recommended by outpatient N eurology note -AM CBC, CMP, Mag, PT/INR For severe confusion, will have quetiaprine 12.5 mg PO PM if patient is not able to be calmed verbally. (2) HTN (hypertension): Plan: -Patient has been hypertensive with systolic BP in the 200's since arrival to the ED -Has been asymptomatic -resumed her antihypertensives on 05/26 (3) Lyme disease: Plan: -Found to be Lyme IgG and IgM antibody positive -If truly positive this could be related to her acute decline over the past 2 weeks -now on ceftriaxone. (4) Progressive focal motor weakness: Plan: -Followed by Neurology -Continue to follow workup which is currently in process that her Neurology provider ordered on 05/22 -Neurology consulted -PT/OT consults placed (5) Atrial fibrillation: Plan: -ECG today showing ventricular paced rhythm -Continue Eliquis (6) Chronic diastolic congestive heart failure: Plan: -Appears dehydrated on exam -will resume imdur and lasix -Monitor volume status while on IV fluids -Monitor intake and output (7) Diabetes mellitus type 2 with complications: Plan: -Hold oral agents -Monitor BSG q6h while NPO, goal is 110-160 -Start 5 units lantus BID and CF of 50 for now while NPO -Adjust regimen as needed (8) Hypothyroidism: Plan: -TSH on 05/22 WNL -Continue levothyroxine when able Admission and Anticipated Discharge Date Admission Date: May 25, 2023 Subjective Patient has been very confused today. She has been at times vulgar per staff and then calm. During my time with her, she was able to calm down, but was confused and did not make sense at times. No new complaints. Review of Systems Review of Systems: Unobtainable due to cognitive status Physical Exam Physical Exam: General: In no acute distress, older than stated age, malnourished, chronically ill-appearing HEENT: Normocephalic, atraumatic Chest/Pulm: No respiratory distress, symmetrical chest expansion, clear breath sounds throughout Cardiac: RRR, no murmurs noted Abdomen: Negative for ascites and bruising, normoactive bowel sounds, soft, non-tender to palpation throughout Extremities: Radial, dorsalis pedis, and posterior tibial pulses are intact and symmetrical, no edema noted in the BL LE's Skin: Warm, dry, no rashes , lesions, or scars noted Neuro: confused Psych: No acute distress, pleasantly confused, cooperative during exam Results & Data Results & Data Vital Signs (Past 12 Hours) Vital Signs Temp Pulse Pulse Resp BP BP Pulse Ox 05/26/23 11:40 36.5 C 70 18 193/91 H 99 05/26/23 11:12 191/84 H 05/26/23 10:37 70 05/26/23 09:17 70 188/98 H 05/26/23 09:02 70 200/97 H 05/26/23 08:54 80 200/97 H 95 05/26/23 02:31 36.7 C 72 18 172/78 H 86 L O2 Del Method 05/26/23 11:40 Room Air 05/26/23 11:12 05/26/23 10:37 05/26/23 09:17 05/26/23 09:02 05/26/23 08:54 Room Air 05/26/23 02:31 Room Air PG Care Time/CCT Total # of Minutes Spent Total Time Spent with Patient: Total time spent is greater than 50% in coordination of care (as documented) at patient's floor/unit and/or counseling patient: Coding Level of Care Code 14801 SUB INP/OBS CARE 3/50MIN Diagnoses Generalized weakness R53.1 HTN (hypertension) I10 Lyme disease A69.20 Progressive focal motor weakness R53.1 Atrial fibrillation I48.91 Chronic diastolic congestive heart failure I50.32 Diabetes mellitus type 2 with complications E11.8 Hypothyroidism E03.9
[2023-05-26] MEDS ORDERED: Nursing to Pharmacy Communication SCH (15:30)
[2023-05-26] MEDS: FUROSEMIDE 40 MG TAB PO SCH (16:45)
[2023-05-26] MEDS: POTASSIUM CHLORIDE CRTAB 20 MEQ TABCR PO SCH (16:46)
[2023-05-26] MEDS: ACETAMINOPHEN 325 MG TAB PO SCH ×2 (16:49→20:14)
[2023-05-26] MEDS ORDERED: KETOROLAC 30 MG/ML VIAL IV ONE (20:44)
[2023-05-26] MEDS: ATORVASTATIN 20 MG TAB PO SCH (20:45)
[2023-05-26] MEDS ORDERED: LIDOCAINE 5% 1 PATCH TD STA (20:53)
[2023-05-27] MEDS ORDERED: QUEtiapine FUMARATE 25 MG TABLET PO STA (01:07)
[2023-05-27] MEDS: LEVOTHYROXINE SODIUM 50 MCG TABLET PO SCH (05:57)
[2023-05-27 07:55] LABS: Basophils # (auto) 0.06 K/uL (0-0.2); Basophils % (auto) 0.6 %; Eosinophils # (auto) 0.21 K/uL (0-0.50); Eosinophils % (auto) 2.2 %; Hematocrit (blood only) 47.2 % (37.0-47.0); Hemoglobin 15.9 g/dl (12.0-16.0); Immature Granulocytes # (auto) 0.06 K/uL (0.01-0.20); Immature Granulocytes % (auto) 0.6 %; Lymphocytes % (auto) 24.4 %; Mean Corpuscular Hgb Conc 33.7 g/dL (32.0-36.0); Mean Platelet Volume 11.8 fL (9.4-12.4); Monocytes # (auto) 0.72 K/uL (0.11-0.59); Monocytes % (auto) 7.7 %; Neutrophils # (auto) 6.06 K/uL (1.40-6.50); Neutrophils % (auto) 64.5 %; Platelet Count 230 K/uL (130-400); RDW Coefficient of Variation 15.2 % (11.5-14.5); RDW Standard Deviation 47.7 fL (36.4-46.3); Red Blood Count 5.49 M/uL (4.20-5.40); White Blood Count 9.41 K/ul (4.8-10.8)
[2023-05-27] MEDS: INSULIN ASPART PER UNIT CHARGE SC SCH ×4 (08:19→21:00)
[2023-05-27] MEDS: VALSARTAN 80 MG TAB PO SCH ×2 (08:20→20:03)
[2023-05-27] MEDS: METOPROLOL SUCC 50MG EXT REL TAB PO SCH (08:20)
[2023-05-27] MEDS: ACETAMINOPHEN 325 MG TAB PO SCH ×4 (08:21→20:01)
[2023-05-27] MEDS: ASPIRIN 81 MG ECTAB PO SCH (08:21)
[2023-05-27] MEDS: CYANOCOBALAMIN (B-12) 500 MCG TABLET PO SCH (08:22)
[2023-05-27] MEDS: FUROSEMIDE 40 MG TAB PO SCH ×2 (08:22→18:43)
[2023-05-27] MEDS: POTASSIUM CHLORIDE CRTAB 20 MEQ TABCR PO SCH ×2 (08:22→18:12)
[2023-05-27] MEDS: ISOSORBIDE MONO EXTENDED REL 30 MG TABCR PO SCH (08:22)
[2023-05-27 08:25] LABS: INR 1.2 (0.9-1.1); Prothrombin Time 12.5 Seconds (9.0-12.0)
[2023-05-27 08:29] LABS: Albumin Globulin Ratio 1.3 (0.9-2); Albumin Level 4.5 gm/dl (3.4-5.0); BUN Creatinine Ratio 28.6 (10-20); Bilirubin Direct 0.3 mg/dl (0-0.2); Bilirubin,Total 1.7 mg/dl (0.2-1.0); Calcium 10.9 mg/dl (8.6-10.3); Creatinine Clr Calc Pharmacy 50.9 ml/min; Est GFR (African American) 82.2 ml/min; Est GFR (Non-African American) 70.9 ml/min; Globulin 3.4 gm/dl (2.5-4.0); Magnesium 1.9 mg/dl (1.7-2.4); Potassium 3.5 mmol/L (3.5-5.1); Total Protein 7.9 gm/dl (6.0-8.3)
[2023-05-27] MEDS: LANTUS PER UNIT CHARGE SQ SCH ×2 (09:38→21:00)
[2023-05-27] MEDS: cefTRIAXone SODIUM 2,000 MG in DEXTROSE 5% 50 ML IV SCH (11:17)
--- NOTE | 2023-05-27 12:18 | Hospitalist Progress Note ---
Date of Service May 27, 2023 Assessment & Plan (1) Generalized weakness: Plan: Lyme meningitis Given LP on 05/25 [facility] showed elevated protein and WBC. -remain PCU on tele -B/P is better controlled now that she is on her regular meds -Patient has been followed by Neurology for progressive focal motor weakness including progressive dysarthria and ataxia -Large workup from Neurology is still in process from 05/22 -Patient's family states that she has had a steep decline in clinical status over the past two weeks -Found to be Lyme IgG and IgM AB positive from 05/22, no other acute abnormalities noted on exam and workup today -Now cleared by speech -transitioned to ceftriaxone IV given lack of improvement. HOwever, there is concern regarding allergy to penicillin. -restarted xarelto -BL SCD's for DVT PPX for now -will keep head of bed elevated to 30 degrees as recommended by outpatient Neurology note -AM CBC, CMP, Mag, PT/INR For severe confusion, will have quetiaprine 12.5 mg PO PM if patient is not able to be calmed verbally. Patient will be on 25 mg of seroquel overnight. (2) HTN (hypertension): Plan: -Patient has been hypertensive with systolic BP in the 200's since arrival to the ED -Has been asymptomatic -resumed her antihypertensives on 05/26 (3) Lyme disease: Plan: -Found to be Lyme IgG and IgM antibody positive -If truly positive this could be related to her acute decline over the past 2 weeks -now on ceftriaxone. (4) Progressive focal motor weakness: Plan: -Followed by Neurology -Continue to follow workup which is currently in process that her Neurology provider ordered on 05/22 -Neurology consulted -PT/OT consults placed (5) Atrial fibrillation: Plan: -ECG today showing ventricular paced rhythm -Continue Eliquis (6) Chronic diastolic congestive heart failure: Plan: -Appears dehydrated on exam -will resume imdur and lasix -Monitor volume status while on IV fluids -Monitor intake and output (7) Diabetes mellitus type 2 with complications: Plan: -Hold oral agents -Monitor BSG q6h while NPO, goal is 110-160 -Start 5 units lantus BID and CF of 50 for now while NPO -Adjust regimen as needed (8) Hypothyroidism: Plan: -TSH on 05/22 WNL -Continue levothyroxine when able Admission and Anticipated Discharge Date Admission Date: May 25, 2023 Subjective Patient remains confused. Patient has nathan resting for the majority of the day. Review of Systems Review of Systems: All systems reviewed & are unremarkable except as noted in HPI & below Physical Exam Physical Exam: General: In no acute distress, older than stated age, malnourished, chronically ill-appearing HEENT: Normocephalic, atraumatic Chest/Pulm: No respiratory distress, symmetrical chest expansion, clear breath sounds throughout Cardiac: RRR, no murmurs noted Abdomen: Negative for ascites and bruising, normoactive bowel sounds, soft, non-tender to palpation throughout Extremities: Radial, dorsalis pedis, and posterior tibial pulses are intact and symmetrical, no edema noted in the BL LE's Skin: Warm, dry, no rashes , lesions, or scars noted Neuro: confused Psych: No acute distress, pleasantly confused, cooperative during exam Results & Data Results & Data Vital Signs (Past 12 Hours) Vital Signs Temp Pulse Pulse Resp BP Pulse Ox O2 Del Method 05/27/23 11:02 36.7 C 70 18 124/74 92 Room Air 05/27/23 07:47 70 05/27/23 02:28 36.8 C 72 20 193/102 H 95 Room Air PG Care Time/CCT Total # of Minutes Spent Total Time Spent with Patient: Total time spent is greater than 50% in coordination of care (as documented) at patient's floor/unit and/or counseling patient: Coding Level of Care Code 07026 SUB INP/OBS CARE 2/35MIN Diagnoses Generalized weakness R53.1 HTN (hypertension) I10 Lyme disease A69.20 Progressive focal motor weakness R53.1 Atrial fibrillation I48.91 Chronic diastolic congestive heart failure I50.32 Diabetes mellitus type 2 with complications E11.8 Hypothyroidism E03.9
[2023-05-27] MEDS ORDERED: RIVAROXABAN 15 MG TAB PO SCH (17:00)
[2023-05-27] MEDS: RIVAROXABAN 15 MG TAB PO SCH (18:03)
[2023-05-27] MEDS: ATORVASTATIN 20 MG TAB PO SCH (20:02)
[2023-05-27] MEDS: QUEtiapine FUMARATE 25 MG TABLET PO PRN (20:05)
[2023-05-27] MEDS: LIDOCAINE 5% 1 PATCH TD SCH (20:09)
[2023-05-27] MEDS ORDERED: HALOPERIDOL LACTATE 5 MG/ML 1 ML VIAL IM ONE (23:10)
[2023-05-28] MEDS: LABETALOL HCL IV 5 MG/ML 20ML IV PRN ×2 (05:05→08:44)
[2023-05-28] MEDS: LEVOTHYROXINE SODIUM 50 MCG TABLET PO SCH (05:10)
[2023-05-28 07:14] LABS: Hematocrit (blood only) 47.2 % (37.0-47.0); Hemoglobin 15.7 g/dl (12.0-16.0); Mean Corpuscular Hemoglobin 28.9 pg (25.0-34.0); Mean Corpuscular Hgb Conc 33.3 g/dL (32.0-36.0); Mean Corpuscular Volume 86.9 fL (80.0-100.0); Mean Platelet Volume 11.2 fL (9.4-12.4); Platelet Count 259 K/uL (130-400); RDW Coefficient of Variation 15.2 % (11.5-14.5); RDW Standard Deviation 47.8 fL (36.4-46.3); Red Blood Count 5.43 M/uL (4.20-5.40); White Blood Count 13.03 K/ul (4.8-10.8)
[2023-05-28 07:37] LABS: Potassium 4.3 mmol/L (3.5-5.1)
[2023-05-28 08:11] LABS: Albumin Globulin Ratio 1.3 (0.9-2); Albumin Level 4.3 gm/dl (3.4-5.0); Bilirubin,Total 1.4 mg/dl (0.2-1.0); Calcium 11.1 mg/dl (8.6-10.3); Est GFR (African American) 78.5 ml/min; Est GFR (Non-African American) 67.7 ml/min; Globulin 3.3 gm/dl (2.5-4.0); Total Protein 7.6 gm/dl (6.0-8.3)
[2023-05-28] MEDS: VALSARTAN 80 MG TAB PO SCH ×2 (08:41→21:17)
[2023-05-28] MEDS: ISOSORBIDE MONO EXTENDED REL 30 MG TABCR PO SCH (08:41)
[2023-05-28] MEDS: METOPROLOL SUCC 50MG EXT REL TAB PO SCH (08:42)
[2023-05-28] MEDS: CYANOCOBALAMIN (B-12) 500 MCG TABLET PO SCH (08:42)
[2023-05-28] MEDS: ASPIRIN 81 MG ECTAB PO SCH (08:42)
[2023-05-28] MEDS: FUROSEMIDE 40 MG TAB PO SCH ×2 (08:42→16:26)
[2023-05-28] MEDS: POTASSIUM CHLORIDE CRTAB 20 MEQ TABCR PO SCH ×2 (08:43→16:27)
[2023-05-28] MEDS: ACETAMINOPHEN 325 MG TAB PO SCH ×4 (08:43→21:16)
[2023-05-28] MEDS: LANTUS PER UNIT CHARGE SQ SCH ×2 (09:00→21:15)
[2023-05-28] MEDS: INSULIN ASPART PER UNIT CHARGE SC SCH ×4 (09:00→21:15)
--- NOTE | 2023-05-28 10:48 | Neurology Progress Note ---
Date of Service May 28, 2023 Assessment & Plan (1) Generalized weakness: (2) Lyme disease: (3) Idiopathic polyneuropathy: Plan Patient presented with progressive dysphagia, dysarthria, her generalized weakness and there was a concern for motor neuron disease. EMG and nerve co nduction studies last week was consistent with a severe neuropathy and Lyme Western blot was highly positive both IgG and IgM. CSF showed increased white count and protein consistent with infection. Final studies are pending but the overall picture seems consistent with significant, progressive [employer] Lyme disease. Recommendations: 1. continue ceftriaxone 2 g daily. 2. Increase activity with physical, occupational, and speech therapy Overall, I spent a total of 50 minutes with this case including review of records, direct evaluation the patient at bedside, reports generation, and discussing the case with the patient and RN at bedside and Dr. Malagon including differential diagnosis and treatment. Admission and Anticipated Discharge Date Admission Date: May 25, 2023 Subjective Patient has no complaint of headache or pain. She feeling weak and tired ho wever. Nursing reports that she can swallow. She has elevated white count on CBC today without anemia. Chem profile shows mildly elevated BUN with a glucose of 203. liver studies are stable to slightly improved. Blood pressure is 112/65. Final CSF studies are pending but there is evidence for significant infection likely [employer] Lyme disease. Results & Data Vital Signs (Past 12 Hours) Vital Signs Temp Pulse Pulse Resp BP BP Pulse Ox 05/28/23 09:30 154/109 H 05/28/23 09:10 75 191/116 H 05/28/23 08:44 70 213/132 H 05/28/23 07:52 73 18 213/132 H 96 05/28/23 05:17 72 164/120 H 05/28/23 05:13 72 164/120 H 05/28/23 05:05 70 217/108 H 05/28/23 04:47 36.4 C L 70 22 217/108 H 98 05/28/23 02:30 87 05/27/23 23:08 36.9 C 72 14 147/91 H 100 O2 Del Method 05/28/23 09:30 05/28/23 09:10 05/28/23 08:44 05/28/23 07:52 Room Air 05/28/23 05:17 05/28/23 05:13 05/28/23 05:05 05/28/23 04:47 Room Air 05/28/23 02:30 05/27/23 23:08 Room Air Exam (Neuro) Physical Exam: She is awake and alert. Speech shows dysarthria and at times she is hard to understand. She has difficulty swallowing and has some lower facial weakness bilaterally. Extraocular eye muscles are intact without nystagmus. strength is 4/5 diffusely in the arms and legs especially proximally. Distally is closer to 4+/5 diffusely. PG Care Time/CCT Total # of Minutes Spent Total Time Spent with Patient: Total time spent is greater than 50% in coordination of care (as documented) at patient's floor/unit and/or counseling patient: Coding Level of Care Code 15463 SUB INP/OBS CARE 3/50MIN Diagnoses Generalized weakness R53.1 Lyme disease A69.20 Idiopathic polyneuropathy G60.9 Time Spent (min) 50
[2023-05-28] MEDS: cefTRIAXone SODIUM 2,000 MG in DEXTROSE 5% 50 ML IV SCH (11:56)
[2023-05-28] MEDS: RIVAROXABAN 15 MG TAB PO SCH (16:26)
[2023-05-28] MEDS ORDERED: RIVAROXABAN 15 MG TAB PO SCH (21:00)
[2023-05-28] MEDS: ATORVASTATIN 20 MG TAB PO SCH (21:16)
[2023-05-28] MEDS: QUEtiapine FUMARATE 25 MG TABLET PO PRN (21:16)
[2023-05-28] MEDS: LIDOCAINE 5% 1 PATCH TD SCH (21:23)
--- NOTE | 2023-05-28 23:12 | Hospitalist Progress Note ---
Date of Service May 28, 2023 Assessment & Plan (1) Generalized weakness: Plan: Lyme meningitis Given LP on 05/25 [facility] showed elevated protein and WBC. -remain PCU on tele -B/P is better controlled now that she is on her regular meds -Patient has been followed by Neurology for progressive focal motor weakness including progressive dysarthria and ataxia -Large workup from Neurology is still in process from 05/22 -Patient's family states that she has had a steep decline in clinical status over the past two weeks -Found to be Lyme IgG and IgM AB positive from 05/22, no other acute abnormalities noted on exam and workup today -Now cleared by speech -transitioned to ceftriaxone IV given lack of improvement. HOwever, there is concern regarding allergy to penicillin. -restarted xarelto -BL SCD's for DVT PPX for now -will keep head of bed elevated to 30 degrees as recommended by outpatient Neurology note -AM CBC, CMP, Mag, PT/INR For severe confusion, received seroquel to 25 mg PO PM. Patient also received haldol per overnight resident. Patient is now resting comfortably but more lethargic in the AM. Will continue to monitor. (2) HTN (hypertension): Plan: -Patient has been hypertensive with systolic BP in the 200's since arrival to the ED -Has been asymptomatic -resumed her antihypertensives on 05/26 (3) Lyme disease: Plan: -Found to be Lyme IgG and IgM antibody positive -If truly positive this could be related to her acute decline over the past 2 weeks -now on ceftriaxone. (4) Progressive focal motor weakness: Plan: -Followed by Neurology -Continue to follow workup which is currently in process that her Neurology provider ordered on 05/22 -Neurology consulted -PT/OT consults placed (5) Atrial fibrillation: Plan: -ECG today showing ventricular paced rhythm -Continue Eliquis (6) Chronic diastolic congestive heart failure: Plan: -Appears dehydrated on exam -will resume imdur and lasix -Monitor volume status while on IV fluids -Monitor intake and output (7) Diabetes mellitus type 2 with complications: Plan: -Hold oral agents -Monitor BSG q6h while NPO, goal is 110-160 -Start 5 units lantus BID and CF of 50 for now while NPO -Adjust regimen as needed (8) Hypothyroidism: Plan: -TSH on 05/22 WNL -Continue levothyroxine when able Admission and Anticipated Discharge Date Admission Date: May 25, 2023 Subjective Patient resting comfortably. Review of Systems Review of Systems: All systems reviewed & are unremarkable except as noted in HPI & below Physical Exam Physical Exam: General: In no acute distress, older than stated age, malnourished, chronically ill-appearing HEENT: Normocephalic, atraumatic Chest/Pulm: No respiratory distress, symmetrical chest expansion, clear breath sounds throughout Cardiac: RRR, no murmurs noted Abdomen: Negative for ascites and bruising, normoactive bowel sounds, soft, non-tender to palpation throughout Extremities: Radial, dorsalis pedis, and posterior tibial pulses are intact and symmetrical, no edema noted in the BL LE's Skin: Warm, dry, no rashes , lesions, or scars noted Neuro: confused Psych: No acute distress, pleasantly confused, cooperative during exam Results & Data Results & Data Vital Signs (Past 12 Hours) Vital Signs Temp Pulse Pulse Pulse Resp BP Pulse Ox 05/28/23 21:04 36.7 C 71 14 111/88 98 05/28/23 16:47 36.6 C 70 17 152/85 H 97 05/28/23 14:57 71 O2 Del Method 05/28/23 21:04 Room Air 05/28/23 16:47 Room Air 05/28/23 14:57 PG Care Time/CCT Total # of Minutes Spent Total Time Spent with Patient: Total time spent is greater than 50% in coordination of care (as documented) at patient's floor/unit and/or counseling patient: Coding Level of Care Code 76690 SUB INP/OBS CARE 2/35MIN Diagnoses Generalized weakness R53.1 HTN (hypertension) I10 Lyme disease A69.20 Progressive focal motor weakness R53.1 Atrial fibrillation I48.91 Chronic diastolic congestive heart failure I50.32 Diabetes mellitus type 2 with complications E11.8 Hypothyroidism E03.9
[2023-05-29] MEDS: LEVOTHYROXINE SODIUM 50 MCG TABLET PO SCH (05:54)
[2023-05-29 07:25] LABS: Hematocrit (blood only) 47.2 % (37.0-47.0); Hemoglobin 15.1 g/dl (12.0-16.0); Mean Corpuscular Hemoglobin 28.8 pg (25.0-34.0); Mean Corpuscular Volume 89.9 fL (80.0-100.0); Platelet Count 253 K/uL (130-400); RDW Coefficient of Variation 15.3 % (11.5-14.5); RDW Standard Deviation 50.5 fL (36.4-46.3); Red Blood Count 5.25 M/uL (4.20-5.40); White Blood Count 12.61 K/ul (4.8-10.8)
[2023-05-29 07:30] LABS: Anion Gap 9 (3-11); Calcium 10.9 mg/dl (8.6-10.3); Carbon Dioxide 26 mmol/L (21-32); Chloride 105 mmol/L (98-107); Potassium 4.5 mmol/L (3.5-5.1); Sodium 140 mmol/L (136-145)
[2023-05-29 07:35] LABS: BUN Creatinine Ratio 36.8 (10-20); Blood Urea Nitrogen 32 mg/dl (6-23); C Reactive Protein < 0.50 mg/dl (0-0.5); Creatinine Clr Calc Pharmacy 45.1 ml/min; Est GFR (African American) 70.9 ml/min; Est GFR (Non-African American) 61.2 ml/min; Glucose 243 mg/dl (70-99(Fasting))
[2023-05-29] MEDS: INSULIN ASPART PER UNIT CHARGE SC SCH ×4 (09:35→21:24)
[2023-05-29] MEDS: LABETALOL HCL IV 5 MG/ML 20ML IV PRN (09:35)
[2023-05-29] MEDS: LANTUS PER UNIT CHARGE SQ SCH ×2 (09:36→21:24)
[2023-05-29] MEDS: FUROSEMIDE 40 MG TAB PO SCH ×2 (09:38→17:20)
[2023-05-29] MEDS: ACETAMINOPHEN 325 MG TAB PO SCH ×4 (09:38→20:24)
[2023-05-29] MEDS: POTASSIUM CHLORIDE CRTAB 20 MEQ TABCR PO SCH ×2 (09:39→17:20)
[2023-05-29] MEDS: ASPIRIN 81 MG ECTAB PO SCH (09:39)
[2023-05-29] MEDS: METOPROLOL SUCC 50MG EXT REL TAB PO SCH (09:39)
[2023-05-29] MEDS: VALSARTAN 80 MG TAB PO SCH ×2 (09:39→20:23)
[2023-05-29] MEDS: CYANOCOBALAMIN (B-12) 500 MCG TABLET PO SCH (09:40)
[2023-05-29] MEDS: ISOSORBIDE MONO EXTENDED REL 30 MG TABCR PO SCH (09:40)
[2023-05-29] MEDS ORDERED: PHARMACY GLYCEMIC MGMT CONSULT PRN (11:28)
[2023-05-29] MEDS ORDERED: LANTUS PER UNIT CHARGE SC ONE ×2 (12:00)
[2023-05-29] MEDS: cefTRIAXone SODIUM 2,000 MG in DEXTROSE 5% 50 ML IV SCH (12:02)
--- NOTE | 2023-05-29 12:13 | Pharmacy Report ---
Pharmacy Glycemic Short Note 2 - Date of Service May 29, 2023 - Glycemic Short BSG Results (Last 24 hours): 05/28/23 05/28/23 05/29/23 16:45 21:05 06:47 Glucose 243 H POC Glucose 165 H 300 H 05/29/23 05/29/23 05/29/23 07:14 11:13 11:15 Glucose POC Glucose 270 H 413 H* 407 H* OUTPATIENT ANTIDIABETIC REGIMEN: * Lantus 10 units SQ qam and 20 units HS * metformin 500mg PO BID * sitagliptin 50mg PO daily HbA1C: 9.2% ASSESSMENT: * Patient is an 83 year old female with DM2 on insulin and PO antihyperglycemic medications at home admitted with suspected lyme meningitis. Pharmacy consult ed to assist with glycemic management in the setting of rising BSGs. * Patient has been receiving Lantus 5 units BID and Novolog with a correction factor only (50mg/dL/unit) so far in admission. BSGs the last 24h: [id number]/dL. Fasting BSG this AM, 270mg/dL (increased from 173 on 05/27). Received 10 units of basal and 8 units of bolus insulin yesterday. * Tolerating diet, receiving ceftriaxone 2gm q24h. * Will increase basal today given elevated fasting to 10 units BID (additional 5 units X 1 now). Novolog parameters tightened ~ moderate stress scale with carb coverage. PLAN FOR INPATIENT GLYCEMIC CONTROL: * Hold outpatient oral diabetes medications * Basal insulin * Lantus 5 units X 1 now, and then 10 units SQ BID starting tonight * Bolus insulin * NovoLog per scale ACHS or Q6hrs while NPO * Goal Range: Low 110 mg/dL - High 140 mg/dL * Correction Factor: 35 mg/dL/unit * Nutritional / Prandial insulin per carb ratio of 1 unit per 12 grams CHO consumed
[2023-05-29] MEDS ORDERED: INSULIN ASPART PER UNIT CHARGE SC ONE (14:30)
[2023-05-29] MEDS: RIVAROXABAN 15 MG TAB PO SCH (17:21)
[2023-05-29] MEDS: ATORVASTATIN 20 MG TAB PO SCH (20:24)
[2023-05-29] MEDS: QUEtiapine FUMARATE 25 MG TABLET PO PRN (20:25)
[2023-05-29] MEDS: LIDOCAINE 5% 1 PATCH TD SCH (20:28)
--- NOTE | 2023-05-29 22:24 | Hospitalist Progress Note ---
Date of Service May 29, 2023 Assessment & Plan (1) Generalized weakness: Plan: Lyme meningitis Given LP on 05/25 [facility] showed elevated protein and WBC. -remain PCU on tele -B/P is better controlled now that she is on her regular meds -Patient has been followed by Neurology for progressive focal motor weakness including progressive dysarthria and ataxia -Large workup from Neurology is still in process from 05/22 -Patient's family states that she has had a steep decline in clinical status over the past two weeks -Found to be Lyme IgG and IgM AB positive from 05/22, no other acute abnormalities noted on exam and workup today -Now cleared by speech -transitioned to ceftriaxone IV given lack of improvement. However, there is concern regarding allergy to penicillin. -restarted xarelto -BL SCD's for DVT PPX for now -will keep head of bed elevated to 30 degrees as recommended by outpatient Neurology note For severe confusion, received seroquel to 25 mg PO PM. Patient is now resting comfortably, continues to be confused. will monitor. (2) HTN (hypertension): Plan: -Patient has been hypertensive with systolic BP in the 200's since arrival to the ED -Has been asymptomatic -resumed her antihypertensives on 05/26 (3) Lyme disease: Plan: -Found to be Lyme IgG and IgM antibody positive -If truly positive this could be related to her acute decline over the past 2 weeks -now on ceftriaxone. (4) Progressive focal motor weakness: Plan: -Followed by Neurology -Continue to follow workup which is currently in process that her Neurology provider ordered on 05/22 -Neurology consulted -PT/OT consults placed (5) Atrial fibrillation: Plan: -ECG today showing ventricular paced rhythm -Continue Eliquis (6) Chronic diastolic congestive heart failure: Plan: -Appears dehydrated on exam -will resume imdur and lasix -Monitor volume status while on IV fluids -Monitor intake and output (7) Diabetes mellitus type 2 with complications: Plan: -Hold oral agents -Monitor BSG q6h while NPO, goal is 110-160 -Start 5 units lantus BID and CF of 50 for now while NPO -Adjust regimen as needed (8) Hypothyroidism: Plan: -TSH on 05/22 WNL -Continue levothyroxine when able Admission and Anticipated Discharge Date Admission Date: May 25, 2023 Subjective Patient continues to be confused. Review of Systems Review of Systems: Unobtainable due to cognitive status Physical Exam Physical Exam: General: In no acute distress, older than stated age, malnourished, chronically ill-appearing HEENT: Normocephalic, atraumatic Chest/Pulm: No respiratory distress, symmetrical chest expansion, clear breath sounds throughout Cardiac: RRR, no murmurs noted Abdomen: Negative for ascites and bruising, normoactive bowel sounds, soft, non- tender to palpation throughout Extremities: Radial, dorsalis pedis, and posterior tibial pulses are intact and symmetrical, no edema noted in the BL LE's Skin: Warm, dry, no rashes , lesions, or scars noted Neuro: confused Psych: No acute distress, pleasantly confused, cooperative during exam Results & Data Results & Data Vital Signs (Past 12 Hours) Vital Signs Temp Pulse Pulse Resp BP BP BP 05/29/23 19:39 36.6 C 69 20 134/78 05/29/23 15:00 70 05/29/23 15:06 36.4 C L 71 16 105/65 05/29/23 11:51 70 155/85 H 05/29/23 11:26 36.5 C 70 22 135/78 Pulse Ox O2 Del Method 05/29/23 19:39 96 Room Air 05/29/23 15:00 05/29/23 15:06 92 Room Air 05/29/23 11:51 05/29/23 11:26 98 Room Air PG Care Time/CCT Total # of Minutes Spent Total Time Spent with Patient: Total time spent is greater than 50% in coordination of care (as documented) at patient's floor/unit and/or counseling patient: Coding Level of Care Code 25703 SUB INP/OBS CARE 2/35MIN Diagnoses Generalized weakness R53.1 HTN (hypertension) I10 Lyme disease A69.20 Progressive focal motor weakness R53.1 Atrial fibrillation I48.91 Chronic diastolic congestive heart failure I50.32 Diabetes mellitus type 2 with complications E11.8 Hypothyroidism E03.9
[2023-05-30] MEDS: LEVOTHYROXINE SODIUM 50 MCG TABLET PO SCH (05:19)
[2023-05-30 07:19] LABS: Hematocrit (blood only) 48.8 % (37.0-47.0); Hemoglobin 15.7 g/dl (12.0-16.0); Mean Corpuscular Hemoglobin 28.7 pg (25.0-34.0); Mean Corpuscular Hgb Conc 32.2 g/dL (32.0-36.0); Mean Corpuscular Volume 89.2 fL (80.0-100.0); Mean Platelet Volume 11.1 fL (9.4-12.4); Platelet Count 272 K/uL (130-400); RDW Coefficient of Variation 15.8 % (11.5-14.5); RDW Standard Deviation 50.6 fL (36.4-46.3); Red Blood Count 5.47 M/uL (4.20-5.40); White Blood Count 14.14 K/ul (4.8-10.8)
[2023-05-30 07:42] LABS: BUN Creatinine Ratio 33.3 (10-20); Calcium 11.7 mg/dl (8.6-10.3); Creatinine Clr Calc Pharmacy 40.8 ml/min; Est GFR (African American) 62.9 ml/min; Est GFR (Non-African American) 54.3 ml/min; Potassium 4.2 mmol/L (3.5-5.1)
[2023-05-30] MEDS: METOPROLOL SUCC 50MG EXT REL TAB PO SCH (08:25)
[2023-05-30] MEDS: VALSARTAN 80 MG TAB PO SCH ×2 (08:26→20:43)
[2023-05-30] MEDS: ACETAMINOPHEN 325 MG TAB PO SCH ×4 (08:26→20:44)
[2023-05-30] MEDS: ISOSORBIDE MONO EXTENDED REL 30 MG TABCR PO SCH (08:26)
[2023-05-30] MEDS: ASPIRIN 81 MG ECTAB PO SCH (08:27)
[2023-05-30] MEDS: CYANOCOBALAMIN (B-12) 500 MCG TABLET PO SCH (08:27)
[2023-05-30] MEDS: POTASSIUM CHLORIDE CRTAB 20 MEQ TABCR PO SCH ×2 (08:27→16:59)
[2023-05-30] MEDS: FUROSEMIDE 40 MG TAB PO SCH ×2 (08:28→16:59)
[2023-05-30] MEDS: INSULIN ASPART PER UNIT CHARGE SC SCH ×4 (08:45→22:11)
[2023-05-30] MEDS: LANTUS PER UNIT CHARGE SQ SCH ×2 (08:46→22:11)
--- NOTE | 2023-05-30 11:33 | XRay Report ---
KUB CLINICAL HISTORY: Change in mental status. FINDINGS: 2 AP, portable, supine abdominal radiographs are correlated with lumbar spine radiographs d ated 05/24/[address] with abdominal CT dated 09/14/2014. There is a nonobstructed abdominal bowel gas pattern. Moderate fecal retention is seen throughout the colon. No evidence of intraperiton eal free air is identified on these supine images. Cholecystectomy clips are noted in the right upper quadrant. There are no abnormal abdominal calcifications. Advanced atherosclerotic calcification is noted in the abdominal aorta. Phleboliths are seen in the pelvis. The skeletal structures are osteope jeannette and appear intact. There is moderate to advanced lumbar sacral spondylosis and scoliosis. The hea rt is enlarged and pacemaker leads are in place. IMPRESSION: No acute abnormality is identified. Electronically signed by: Kenan Oleary M.D. 05/30/2023 11:32 AM
[2023-05-30] MEDS: cefTRIAXone SODIUM 2,000 MG in DEXTROSE 5% 50 ML IV SCH (12:15)
--- NOTE | 2023-05-30 13:47 | Pharmacy Report ---
Pharmacy Glycemic Short Note 2 - Date of Service May 30, 2023 - Glycemic Short BSG Results (Last 24 hours): 05/29/23 05/29/23 05/29/23 14:28 16:19 20:40 Glucose POC Glucose 238 H 143 H 191 H 05/30/23 05/30/23 05/30/23 06:15 07:17 11:33 Glucose 145 H POC Glucose 134 H 222 H OUTPATIENT ANTIDIABETIC REGIMEN: * Lantus 10 units SQ qam and 20 units HS * metformin 500mg PO BID * sitagliptin 50mg PO daily HbA1C: 9.2% ASSESSMENT: 05/30: * BSGs within goal range the last 24h: [phone]/dL. Received 20 units of basal and 16 units of bolus insulin yesterday. * Stressors stable, tolerating diet. * No change to basal today. Novolog parameters tightened slightly for elevated prandial BSG today. 05/29: * Patient is an 83 year old female with DM2 on insulin and PO antihyperglycemic medications at home admitted with suspected lyme meningitis. Pharmacy consulted to assist with glycemic management in the setting of rising BSGs. * Patient has been receiving Lantus 5 units BID and Novolog with a correction factor only (50mg/dL/unit) so far in admission. BSGs the last 24h: [phone]/dL. Fasting BSG this AM, 270mg/dL (increased from 173 on 05/27). Received 10 units of basal and 8 units of bolus insulin yesterday. * Tolerating diet, receiving ceftriaxone 2gm q24h. * Will increase basal today given elevated fasting to 10 units BID (additional 5 units X 1 now). Novolog parameters tightened ~ moderate stress scale with carb coverage. PLAN FOR INPATIENT GLYCEMIC CONTROL: * Hold outpatient oral diabetes medications * Basal insulin * Lantus 10 units SQ BID * Bolus insulin * NovoLog per scale ACHS or Q6hrs while NPO * Goal Range: Low 110 mg/dL - High 140 mg/dL * Correction Factor: 30 mg/dL/unit * Nutritional / Prandial insulin per carb ratio of 1 unit per 10 grams CHO consumed
[2023-05-30] MEDS: RIVAROXABAN 15 MG TAB PO SCH (17:00)
[2023-05-30] MEDS: ATORVASTATIN 20 MG TAB PO SCH (20:44)
[2023-05-30] MEDS: QUEtiapine FUMARATE 25 MG TABLET PO PRN (20:45)
[2023-05-30] MEDS: LIDOCAINE 5% 1 PATCH TD SCH (20:46)
--- NOTE | 2023-05-30 22:30 | Hospitalist Progress Note ---
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 -remain PCU on tele -B/P is better controlled now that she is on her regular meds -Patient has been followed by Neurology for progressive focal motor weakness including progressive dysarthria and ataxia -Large workup from Neurology is still in process from 05/22 -Patient's family states that she has had a steep decline in clinical status over the past two weeks: intermittently generalized weakness, and confused. Periods of confusion gradually increased in duration prior to admission. -Found to be Lyme IgG and IgM AB positive from 05/22, no other acute abnormalities noted on exam and workup today -cleared by speech: tolerating diet -transitioned to ceftriaxone IV given lack of improvement. However, there is concern regarding allergy to penicillin. -restarted xarelto -BL SCD's for DVT PPX for now -will keep head of bed elevated to 30 degrees as recommended by outpatient Neurology note Patient has been receiving seroqule 25 mg PO PM for agitation, will consider cutting back to 12.5 mg to see if this is playing role with her confusion. If no improvement, may consider repeating CT scan of head, though. Though likely encephalopathy is caused by lyme meningitis (2) HTN (hypertension): Plan: -Patient has been hypertensive with systolic BP in the 200's since arrival to the ED -Has been asymptomatic -resumed her antihypertensives on 05/26 (3) Lyme disease: Plan: -Found to be Lyme IgG and IgM antibody positive -If truly positive this could be related to her acute decline over the past 2 weeks -now on ceftriaxone. (4) Progressive focal motor weakness: Plan: -Followed by Neurology -Continue to follow workup which is currently in process that her Neurology provider ordered on 05/22 -Neurology consulted -PT/OT consults placed (5) Atrial fibrillation: Plan: -ECG today showing ventricular paced rhythm -Continue Eliquis (6) Chronic diastolic congestive heart failure: Plan: -Appears dehydrated on exam -will resume imdur and lasix -Monitor volume status while on IV fluids -Monitor intake and output (7) Diabetes mellitus type 2 with complications: Plan: -Hold oral agents -Monitor BSG q6h while NPO, goal is 110-160 -Start 5 units lantus BID and CF of 50 for now while NPO -Adjust regimen as needed (8) Hypothyroidism: Plan: -TSH on 05/22 WNL -Continue levothyroxine when able Admission and Anticipated Discharge Date Admission Date: May 25, 2023 Subjective 83 yo isabel is confused. While in the room she moans at times, but is unable to state what is bothering her. When you talk to her, grab her hand gently, she calms down. but is mainly non- verbal. Her family is at bedside and are updated. Patient has been tolerating her diet and eat the majority of every other meal. Today she had a good breakfast, but not a so much her lunch. Review of Systems Review of Systems: Unobtainable due to cognitive status Physical Exam Physical Exam: General: chronically ill-appearing HEENT: Normocephalic, atraumatic Chest/Pulm: No respiratory distress, clear breath sounds throughout Cardiac: RRR, no murmurs noted Abdomen: normoactive bowel sounds, soft, non-tender to palpation throughout Extremities: no edema noted in the BL LE's Skin: Warm, dry, no rashes , lesions, or scars noted Neuro: confused Results & Data Results & Data Vital Signs (Past 12 Hours) Vital Signs Temp Pulse Pulse Resp BP BP Pulse Ox 05/30/23 19:30 36.6 C 70 20 162/91 H 98 05/30/23 15:31 36.6 C 73 17 130/76 96 05/30/23 15:08 70 05/30/23 11:42 36.6 C 70 18 125/66 96 O2 Del Method 05/30/23 19:30 Room Air 05/30/23 15:31 Room Air 05/30/23 15:08 05/30/23 11:42 Room Air PG Care Time/CCT Total # of Minutes Spent Total Time Spent with Patient: Total time spent is greater than 50% in coordination of care (as documented) at patient's floor/unit and/or counseling patient: Coding Level of Care Code 86526 SUB INP/OBS CARE 3/50MIN Diagnoses Generalized weakness R53.1 HTN (hypertension) I10 Lyme disease A69.20 Progressive focal motor weakness R53.1 Atrial fibrillation I48.91 Chronic diastolic congestive heart failure I50.32 Diabetes mellitus type 2 with complications E11.8 Hypothyroidism E03.9 Time Spent (min) 50
[2023-05-30] MEDS ORDERED: QUEtiapine FUMARATE 25 MG TABLET PO PRN (22:31)
[2023-05-30] MEDS ORDERED: MELATONIN 3 MG TAB PO PRN (23:33)
[2023-05-31] MEDS: LEVOTHYROXINE SODIUM 50 MCG TABLET PO SCH (05:55)
--- NOTE | 2023-05-31 08:32 | Hospitalist Progress Note ---
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 -Patient has been followed by Neurology for progressive focal motor weakness including progressive dysarthria and ataxia -workup from Neurology is still in process from 05/22 -Patient's family states that she has had a steep decline in clinical status over the past two weeks prior to admission intermittently generalized weakness, and confused. Periods of confusion gradually increased in duration prior to admission. -Found to be Lyme IgG and IgM AB positive from 05/22, no other acute abnormalities noted on exam and workup -cleared by speech: tolerating diet -transitioned to ceftriaxone IV given lack of improvement on doxycycline Pt is not interacting or responsive on 05/31, cannot take po meds, did try for head MRI, cannot do will have head CT and labs, no defied source, hold all po meds at this time unexplained new found encephalopathy -restarted xarelto Patient has been receiving Seroquel 25 mg PO PM for agitation, given lethargy will hold on 05/31/23 (3) HTN (hypertension): Plan: -chronic and stable, metoprolol, lasix, isosorbide, valsartan (4) Lyme disease: Plan: -Found to be Lyme IgG and IgM antibody positive - on ceftriaxone. (5) Atrial fibrillation: Plan: -ECG today showing ventricular paced rhythm, rate controlled with metoprolol -Continue Eliquis chronic systolic heart failure, stable (6) Diabetes mellitus type 2 with complications: Plan: -Hold oral agents -Monitor BSG q6h while NPO, goal is 110-160 will hold lantus and just use ssi (7) Hypothyroidism: Plan: -TSH on 05/22 WNL -Continue levothyroxine when able Admission and Anticipated Discharge Date Admission Date: May 25, 2023 Subjective Pt is extremely altered, Kussmal type breathing, family is at bedside, pt declining over last few days despite treatment of Lyme meningitis Physical Exam Physical Exam: arouses to pain, sponteneously moves arms and grasps with hands, withdraws to pain, no focal pain to exam Results & Data Results & Data Vital Signs (Past 12 Hours) Vital Signs Temp Pulse Pulse Resp BP Pulse Ox O2 Del Method 05/31/23 07:24 70 05/31/23 03:14 97.3 F L 69 16 124/76 96 Room Air 05/30/23 21:59 86 05/30/23 23:26 97.7 F 73 20 115/68 98 Room Air PG Care Time/CCT Total # of Minutes Spent Total Time Spent with Patient: Total time spent is greater than 50% in coordination of care (as documented) at patient's floor/unit and/or counseling patient: Coding Level of Care Code 08869 SUB INP/OBS CARE 3/50MIN Diagnoses Hemorrhagic stroke I61.9 Generalized weakness R53.1 HTN (hypertension) I10 Lyme disease A69.20 Atrial fibrillation I48.91 Diabetes mellitus type 2 with complications E11.8 Hypothyroidism E03.9
[2023-05-31] MEDS: METOPROLOL SUCC 50MG EXT REL TAB PO SCH ×2 (08:35→09:00)
[2023-05-31] MEDS: CYANOCOBALAMIN (B-12) 500 MCG TABLET PO SCH ×2 (08:36→09:00)
[2023-05-31] MEDS: VALSARTAN 80 MG TAB PO SCH ×2 (08:36→09:00)
[2023-05-31] MEDS: ASPIRIN 81 MG ECTAB PO SCH ×2 (08:36→09:00)
[2023-05-31] MEDS: ISOSORBIDE MONO EXTENDED REL 30 MG TABCR PO SCH ×2 (08:36→09:00)
[2023-05-31] MEDS: ACETAMINOPHEN 325 MG TAB PO SCH ×3 (08:36→16:27)
[2023-05-31] MEDS: FUROSEMIDE 40 MG TAB PO SCH ×3 (08:36→16:28)
[2023-05-31] MEDS: POTASSIUM CHLORIDE CRTAB 20 MEQ TABCR PO SCH ×3 (08:36→16:28)
[2023-05-31] MEDS: INSULIN ASPART PER UNIT CHARGE SC SCH ×3 (08:43→17:06)
[2023-05-31] MEDS ORDERED: LANTUS PER UNIT CHARGE SQ SCH (09:00)
[2023-05-31] MEDS: cefTRIAXone SODIUM 2,000 MG in DEXTROSE 5% 50 ML IV SCH (12:33)
--- NOTE | 2023-05-31 15:05 | Pharmacy Report ---
Pharmacy Glycemic Short Note 2 - Date of Service May 31, 2023 - Glycemic Short BSG Results (Last 24 hours): 05/30/23 05/30/23 05/31/23 16:22 20:47 07:27 POC Glucose 231 H 175 H 164 H 05/31/23 11:27 POC Glucose 160 H OUTPATIENT ANTIDIABETIC REGIMEN: * Lantus 10 units SQ qam and 20 units HS * metformin 500mg PO BID * sitagliptin 50mg PO daily HbA1C: 9.2% ASSESSMENT: 05/31: * BSGs [phone] mg/dL yesterday, with 20 units of basal and 15 units of correctional/prandial * Fasting 164 mg/dL this morning- will increase basal to home total dose * Carb ratio tightened slightly for elevated prandial BSGs yesterday 05/30: * BSGs within goal range the last 24h: 982-181-812-222mg/dL. Received 20 units of basal and 16 units of bolus insulin yesterday. * Stressors stable, tolerating diet. * No change to basal today. Novolog parameters tightened slightly for elevated prandial BSG today. 05/29: * Patient is an 83 year old female with DM2 on insulin and PO antihyperglycemic medications at home admitted with suspected lyme meningitis. Pharmacy consulted to assist with glycemic management in the setting of rising BSGs. * Patient has been receiving Lantus 5 units BID and Novolog with a correction factor only (50mg/dL/unit) so far in admission. BSGs the last 24h: 112-245-368-556-950-304-407mg/dL. Fasting BSG this AM, 270mg/dL (increased from 173 on 05/27). Received 10 units of basal and 8 units of bolus insulin yesterday. * Tolerating diet, receiving ceftriaxone 2gm q24h. * Will increase basal today given elevated fasting to 10 units BID (additional 5 units X 1 now). Novolog parameters tightened ~ moderate stress scale with carb coverage. PLAN FOR INPATIENT GLYCEMIC CONTROL: * Hold outpatient oral diabetes medications * Basal insulin * Lantus 15 units SQ BID * Bolus insulin * NovoLog per scale ACHS or Q6hrs while NPO * Goal Range: Low 110 mg/dL - High 140 mg/dL * Correction Factor: 30 mg/dL/unit * Nutritional / Prandial insulin per carb ratio of 1 unit per 9 grams CHO consumed
[2023-05-31] MEDS: RIVAROXABAN 15 MG TAB PO SCH (16:27)
[2023-05-31 19:16] LABS: Albumin Globulin Ratio 1.2 (0.9-2); BUN Creatinine Ratio 36.6 (10-20); Bilirubin,Total 1.1 mg/dl (0.2-1.0); Calcium 11.6 mg/dl (8.6-10.3); Creatinine Clr Calc Pharmacy 29.9 ml/min; Est GFR (African American) 43.2 ml/min; Est GFR (Non-African American) 37.3 ml/min; Globulin 3.4 gm/dl (2.5-4.0); Potassium 4.8 mmol/L (3.5-5.1); Total Protein 7.4 gm/dl (6.0-8.3)
--- NOTE | 2023-05-31 19:21 | CT Scan Report ---
CT SCAN OF THE BRAIN WITHOUT IV CONTRAST CLINICAL HISTORY: Strokelike symptoms. Change in mental status. COMPARISON STUDY: CT of the brain dated 05/13/2023. MRI of the brain dated 01/30/2023. TECHNIQUE: Unenhanced axial CT scan of the brain is performed from the vertex to the skull base. A do se lowering technique was utilized adhering to the principles of ALARA. CT DOSE: 625.80 mGy.cm FINDINGS: Brain parenchyma: There is intraventricular hemorrhage, greatest within the posterior horn of the lef t lateral ventricle. Trace blood products are seen layering dependently within both occipital horns T here is age-related involutional change noting moderate confluent subcortical and periventricular giuliana roangiopathic disease. No parenchymal hematoma is seen. There is no mass effect or evidence of acute territorial ischemia by CT criteria. Brooks-white matter differentiation is preserved. A chronic infarc t is noted in the right basal ganglia. No extra-axial fluid collection is seen. Ventricles, sulci, cisterns: Prominent secondary to involutional change. Intraventricular hemorrhage as detailed above. Intracranial vasculature: There is atherosclerotic calcification of the cavernous carotid arteries. Calvarium: Unremarkable. Sinuses and mastoids: The visualized paranasal sinuses are clear. The mastoid air cells are well pneu matized. Orbits: The bony orbits are grossly intact. There are bilateral ocular lens implants. IMPRESSION: 1. Intraventricular hemorrhage as above. This is new from 05/13/2023. 2. There is no parenchymal hematoma, mass effect, or evidence of acute territorial ischemia by CT cri teria. Findings were reported to Dr. Vargas at the time of interpretation. ACT 112: Negative or not required by law. Electronically signed by: Kenan Oleary M.D. 05/31/2023 7:18 PM
[2023-05-31] MEDS ORDERED: LACTATED RINGER'S 1,000 ML IV SCH (19:30)
[2023-05-31] MEDS: PLASMA-LYTE A 1,000 ML IV SCH (20:01)
[2023-06-01] MEDS: INSULIN ASPART PER UNIT CHARGE SC SCH ×4 (00:11→16:52)
[2023-06-01] MEDS: METOPROLOL TARTRATE 1 MG/ML VIAL IV SCH ×4 (00:21→17:17)
[2023-06-01] MEDS ORDERED: ACETAMINOPHEN 1,000 MG/100 ML VIAL IV STA (03:20)
[2023-06-01] MEDS ORDERED: ACETAMINOPHEN 1000 MG/100 ML IV IV ONE (03:27)
[2023-06-01] MEDS: DEXTROSE 50% 50 ML SYRINGE IV PRN (05:59)
[2023-06-01 06:05] LABS: Hematocrit (blood only) 46.9 % (37.0-47.0); Hemoglobin 15.1 g/dl (12.0-16.0); Mean Corpuscular Hgb Conc 32.2 g/dL (32.0-36.0); Mean Platelet Volume 10.9 fL (9.4-12.4); Platelet Count 232 K/uL (130-400); RDW Coefficient of Variation 15.9 % (11.5-14.5); RDW Standard Deviation 51.8 fL (36.4-46.3); Red Blood Count 5.21 M/uL (4.20-5.40); White Blood Count 14.83 K/ul (4.8-10.8)
[2023-06-01] MEDS: PLASMA-LYTE A 1,000 ML IV SCH ×2 (06:16→17:12)
[2023-06-01 06:23] LABS: Albumin Globulin Ratio 1.2 (0.9-2); Albumin Level 3.8 gm/dl (3.4-5.0); Bilirubin,Total 1.1 mg/dl (0.2-1.0); Calcium 10.9 mg/dl (8.6-10.3); Creatinine Clr Calc Pharmacy 33.5 ml/min; Est GFR (African American) 49.6 ml/min; Est GFR (Non-African American) 42.8 ml/min; Globulin 3.1 gm/dl (2.5-4.0); Potassium 4.4 mmol/L (3.5-5.1); Total Protein 6.9 gm/dl (6.0-8.3)
--- NOTE | 2023-06-01 10:50 | Neurology Progress Note ---
Date of Service June 01, 2023 Assessment & Plan (1) Intraventricular hemorrhage: (2) Generalized weakness: (3) Lyme disease: (4) Idiopathic polyneuropathy: Plan Patient presented with progressive dysphagia, dysarthria, and generalized weakness in late April 2023 she has been having problems of a progressive nature for months. An MRI of the brain in January apparently was unremarkable. When I 1st saw her May 22, given her presentation, I was concerned about motor neuron disease EMG and nerve conduction studies May 23 was consistent with a severe neuropathy and Lyme Western blot was highly positive both IgG and IgM. she was admitted and CSF showed increased white count and protein consistent with infection. 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 Over the last 48 hours or so she has been worse clinically being more obtunded and agitated. CT scan showed intraventricular hemorrhage likely secondary to Xarelto. The anti coagulant and antiplatelet medication has been discontinued. Today, she is much more calm, following commands, and able to converse some. She is still very dysarthric. The episode where she looked to the right could possibly have been a seizure. Interventricular hemorrhage can be associated with seizures Recommendations: 1. continue ceftriaxone 2 g daily. 2. consider levetiracetam 500 mg twice daily for seizure prevention. the data on this is not entirely clear to me but she may benefit from this, at this point. 3. Consider 2nd opinion at [facility] for anything else that can be done about intraventricular hemorrhage. Overall, I spent a total of 55 minutes with this case including review of records, Review of CT scans, direct evaluation the patient at bedside, report generation, and discussion of the case with the patient and RN at bedside and Dr. Vargas including differential diagnosis and treatment. Admission and Anticipated Discharge Date Admission Date: May 25, 2023 Subjective Patient became acutely worse 2 days or so ago with agitation and lack of response/ interaction. CT scan of the head May 31 showed intraventricular hemorrhage left greater than right occipital horns. There was no obvious parenchymal bleed. Patient had been on Xarelto (for atrial fibrillation) and 81 mg aspirin (for chronic small vessel ischemic disease) and these were discontinued. She had an episode where when agitated she would turn her eyes to the right and then bring them back to midline and close them. No seizure activity was otherwise noted. Today nursing reports that she is more responsive this morning. CBC today showed a white count of 14.8 without anemia. Chem profile showed a BUN of 48 and creatinine of 1.1. Glucose was 86 calcium was somewhat low at 10.9. Alk-phos remains elevated at 105 and total bili of 1.1. Ammonia level was low Results & Data Vital Signs (Past 12 Hours) Vital Signs Temp Pulse Pulse Resp BP BP Pulse Ox 06/01/23 09:07 70 06/01/23 08:18 36.4 C L 70 16 156/77 H 100 06/01/23 06:20 70 149/76 H 06/01/23 05:46 79 146/74 H 06/01/23 02:50 36.7 C 72 18 153/83 H 96 06/01/23 00:36 70 158/85 H 06/01/23 00:21 70 168/86 H O2 Del Method 06/01/23 09:07 06/01/23 08:18 Room Air 06/01/23 06:20 06/01/23 05:46 06/01/23 02:50 Room Air 06/01/23 00:36 06/01/23 00:21 Exam (Neuro) Physical Exam: the patient is resting on her right side with her eyes closed as nursing is washing her and changing her clothes. She has no abnormal involuntary movements. When I call her name she opens her eyes and says that she remembers me she knows her name and the fact that she is in the hospital. She is very dysarthric with her speech. She follows one-step commands fairly well. She can lift either leg off the bed and wiggle her toes. 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 She has a little action tremor with the right upper extremity. Extraocular eye muscles are intact and although she prefers to look to the right she will bring her eyes all the way to the left without nystagmus. There is no facial droop. PG Care Time/CCT Total # of Minutes Spent Total Time Spent with Patient: Total time spent is greater than 50% in coordination of care (as documented) at patient's floor/unit and/or counseling patient: Coding Level of Care Code 65886 SUB INP/OBS CARE 3/50MIN Diagnoses Intraventricular hemorrhage I61.5 Generalized weakness R53.1 Lyme disease A69.20 Idiopathic polyneuropathy G60.9 Time Spent (min) 55
--- NOTE | 2023-06-01 11:31 | Pharmacy Report ---
Pharmacy Glycemic Short Note 2 - Date of Service June 01, 2023 - Glycemic Short BSG Results (Last 24 hours): 05/31/23 05/31/23 05/31/23 11:27 16:28 18:38 Glucose 130 H POC Glucose 160 H 122 H 05/31/23 06/01/23 06/01/23 23:55 05:48 05:56 Glucose 86 POC Glucose 86 60 L* 06/01/23 06/01/23 06:14 11:17 Glucose POC Glucose 104 H 109 H OUTPATIENT ANTIDIABETIC REGIMEN: * Lantus 10 units SQ qam and 20 units HS * metformin 500mg PO BID * sitagliptin 50mg PO daily HbA1C: 9.2% ASSESSMENT: 06/01: * BSGs 010-63-00-109mg/dL the last 24h. Received 15 units of basal and 2 units o f bolus insulin yesterday. * Patient now NPO with new intraventricular hemorrhage. Continues on ceftriaxone. * Basal discontinued given NPO status and low BSGs. Novolog q6 with loosened goal range 120-160 with same parameters. 05/31: * BSGs [phone] mg/dL yesterday, with 20 units of basal and 15 units of correctional/prandial * Fasting 164 mg/dL this morning- will increase basal to home total dose * Carb ratio tightened slightly for elevated prandial BSGs yesterday 05/30: * BSGs within goal range the last 24h: 924-399-768-222mg/dL. Received 20 units of basal and 16 units of bolus insulin yesterday. * Stressors stable, tolerating diet. * No change to basal today. Novolog parameters tightened slightly for elevated prandial BSG today. 05/29: * Patient is an 83 year old female with DM2 on insulin and PO antihyperglycemic medications at home admitted with suspected lyme meningitis. Pharmacy consulted to assist with glycemic management in the setting of rising BSGs. * Patient has been receiving Lantus 5 units BID and Novolog with a correction factor only (50mg/dL/unit) so far in admission. BSGs the last 24h: 497-847-074-701-030-444-407mg/dL. Fasting BSG this AM, 270mg/dL (increased from 173 on 05/27). Received 10 units of basal and 8 units of bolus insulin yesterday. * Tolerating diet, receiving ceftriaxone 2gm q24h. * Will increase basal today given elevated fasting to 10 units BID (additional 5 units X 1 now). Novolog parameters tightened ~ moderate stress scale with carb coverage. PLAN FOR INPATIENT GLYCEMIC CONTROL: * Hold outpatient oral diabetes medications * Basal insulin * hold * Bolus insulin * NovoLog per scale ACHS or Q6hrs while NPO * Goal Range: Low 120 mg/dL - High 160 mg/dL * Correction Factor: 30 mg/dL/unit * Nutritional / Prandial insulin per carb ratio of 1 unit per 9 grams CHO consumed
[2023-06-01] MEDS: cefTRIAXone SODIUM 2,000 MG in DEXTROSE 5% 50 ML IV SCH (11:43)
[2023-06-01] MEDS ORDERED: levETIRAcetam 500 MG in 0.9 % SODIUM CHLORIDE 100 ML IV ONE (12:30)
--- NOTE | 2023-06-01 16:54 | Hospitalist Progress Note ---
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 -Patient has been followed by Neurology for progressive focal motor weakness including progressive dysarthria and ataxia -Now with hemorrhagic stroke neurology is recommending instituting Keppra therapy Images pushed to [facility] but not yet connected to neurosurgery to see if any additional therapy could be offered for this patient -Patient's family states that she has had a steep decline in clinical status over the past two weeks prior to admission intermittently generalized weakness, and confused. Periods of confusion gradually increased in duration prior to admission. -Found to be Lyme IgG and IgM AB positive from 05/22, no other acute abnormalities noted on exam and workup -cleared by speech: tolerating diet -transitioned to ceftriaxone IV given lack of improvement on doxycycline -Hold Xarelto at this time (3) HTN (hypertension): Plan: -chronic and stable, metoprolol, scheduled IV while holding lasix, isosorbide, valsartan (4) Lyme disease: Plan: -Found to be Lyme IgG and IgM antibody positive - on ceftriaxone. (5) Atrial fibrillation: Plan: -ECG today showing ventricular paced rhythm, rate controlled with metoprolol -Continue to hold Xarelto chronic systolic heart failure, stable (6) Diabetes mellitus type 2 with complications: Plan: -Hold oral agents -Monitor BSG q6h while NPO, goal is 110-160 will hold lantus and just use ssi (7) Hypothyroidism: Plan: -TSH on 05/22 WNL -Continue levothyroxine when able Plan Patient has improved after hemorrhagic stroke and Lyme disease meningitis patient will likely benefit from a subacute rehab setting not yet having ability to interface with PT OT after her hemorrhagic stroke anticipate 2-3 more days in the hospital Admission and Anticipated Discharge Date Admission Date: May 25, 2023 Subjective Patient become much more awake and alert. She was sustained some IV fluids overnight did pass her swallowing exam on 06/01/2023 with alternating solids and liquids crushed medication pured diet thin liquids aspiration precautions Attempts to reach family were met with answering machine Physical Exam Physical Exam: Sleepy but arousable follows commands no focal loss dysarthric cardiac exam is regular and rate controlled Results & Data Results & Data Vital Signs (Past 12 Hours) Vital Signs Temp Pulse Pulse Resp BP BP Pulse Ox 06/01/23 16:41 70 06/01/23 15:16 98.2 F 70 17 169/82 H 99 06/01/23 11:58 70 149/83 H 06/01/23 12:11 97.7 F 71 17 100 06/01/23 11:42 70 160/89 H 06/01/23 09:07 70 06/01/23 08:18 97.5 F L 70 16 156/77 H 100 06/01/23 06:20 70 149/76 H 06/01/23 05:46 79 146/74 H O2 Del Method 06/01/23 16:41 06/01/23 15:16 Room Air 06/01/23 11:58 06/01/23 12:11 Room Air 06/01/23 11:42 06/01/23 09:07 06/01/23 08:18 Room Air 06/01/23 06:20 06/01/23 05:46 Laboratory Results Reviewed CBC reviewed chemistry personally spoke to Dr. Vernon neurology PG Care Time/CCT Total # of Minutes Spent Total Time Spent with Patient: Total time spent is greater than 50% in coordination of care (as documented) at patient's floor/unit and/or counseling patient: Coding Level of Care Code 64230 SUB INP/OBS CARE 3/50MIN Diagnoses Hemorrhagic stroke I61.9 Generalized weakness R53.1 HTN (hypertension) I10 Lyme disease A69.20 Atrial fibrillation I48.91 Diabetes mellitus type 2 with complications E11.8 Hypothyroidism E03.9
--- NOTE | 2023-06-01 20:13 | Electrocardiogram Report ---
Test Reason : Blood Pressure : / mmHG Vent. Rate : 072 BPM Atrial Rate : 288 BPM P-R Int : 000 ms QRS Dur : 116 ms QT Int : 438 ms P-R-T Axes : 000 232 043 degrees QTc Int : 479 ms Ventricular-paced rhythm Abnormal ECG When compared with ECG of 24-MAY-2023 14:00, Vent. rate has decreased BY 11 BPM Confirmed by Fernando Turner [id number] on 06/01/2023 8:13:25 PM Referred By: REFERRED SELF Confirmed By:Fernando Turner
[2023-06-02] MEDS: levETIRAcetam 500 MG in 0.9 % SODIUM CHLORIDE 100 ML IV SCH ×3 (01:38→23:45)
[2023-06-02] MEDS: METOPROLOL TARTRATE 1 MG/ML VIAL IV SCH ×5 (01:38→20:35)
[2023-06-02] MEDS: INSULIN ASPART PER UNIT CHARGE SC SCH ×6 (01:39→22:01)
[2023-06-02] MEDS: hydrALAZINE HCL 20 MG/ML VIAL IV PRN (07:07)
[2023-06-02] MEDS: PLASMA-LYTE A 1,000 ML IV SCH ×2 (08:00→17:27)
[2023-06-02] MEDS ORDERED: HALOPERIDOL LACTATE 5 MG/ML 1 ML VIAL IV STA (08:34)
[2023-06-02] MEDS ORDERED: LORazepam 2 MG/1 ML VIAL IV STA (08:34)
[2023-06-02 08:44] LABS: Hematocrit (blood only) 46.8 % (37.0-47.0); Hemoglobin 14.9 g/dl (12.0-16.0); Mean Corpuscular Hemoglobin 28.8 pg (25.0-34.0); Mean Corpuscular Hgb Conc 31.8 g/dL (32.0-36.0); Mean Corpuscular Volume 90.3 fL (80.0-100.0); Mean Platelet Volume 11.3 fL (9.4-12.4); Platelet Count 231 K/uL (130-400); RDW Coefficient of Variation 15.5 % (11.5-14.5); RDW Standard Deviation 50.5 fL (36.4-46.3); Red Blood Count 5.18 M/uL (4.20-5.40); White Blood Count 14.31 K/ul (4.8-10.8)
--- NOTE | 2023-06-02 09:34 | Neurology Progress Note ---
Date of Service June 02, 2023 Assessment & Plan (1) Intraventricular hemorrhage: (2) Generalized weakness: (3) Lyme disease: (4) Idiopathic polyneuropathy: Plan Patient presented with progressive dysphagia, dysarthria, and generalized weakness in late April 2023 she has been having problems of a progressive nature for months. An MRI of the brain in January apparently was unremarkable. When I 1st saw her May 22, given her presentation, I was concerned about motor neuron disease EMG and nerve conduction studies May 23 was consistent with a severe neuropathy and Lyme Western blot was highly positive both IgG and IgM. she was admitted and CSF showed increased white count and protein consistent with infection. Final studies are pending but the overall picture seems consistent with significant, progressive CHANGE CONSULTANT Lyme disease. Over the last 48 hours or so she has been worse clinically being more obtunded and agitated. CT scan showed intraventricular hemorrhage likely secondary to Xarelto. The anti coagulant and antiplatelet medication has been discontinued. on June 01, she was much more calm, following commands, and able to converse some. She was still very dysarthric. today, however, she was more agitated now obtunded from the recent IV meds to calm her down. The episode where she looked to the right, On May 31, could possibly have been a seizure. Intraventricular hemorrhage can be associated with seizures as well as acute encephalopathy. Recommendations: 1. Continue ceftriaxone 2 g daily. 2. Continue levetiracetam 500 mg twice daily for seizure prevention. 3. Consider 2nd opinion at [facility] for anything else that can be done about intraventricular hemorrhage and her clinical picture. 4. A repeat CT scan of the head is being obtained to assess the extent of intraventricular hemorrhage Overall, I spent a total of 35 minutes with this case including review of records, direct evaluation the patient at bedside, report generation, and discussion of the case with the RN and Dr. Vargas at bedside, including differential diagnosis and treatment. Admission and Anticipated Discharge Date Admission Date: May 25, 2023 Subjective the patient was apparently a little agitated throughout the day yesterday and overnight. This morning, she became very agitated and somewhat combative and yelling out. around 0915, she was given 0.25 mg Ativan IV and 2.5 mg Haldol IV. I saw the patient about 5 minutes after she was given the medication and she was very sleepy. Blood Pressure was 111/56, and she was afebrile. White count is 14.3 and the rest of the CBC is stable Results & Data Vital Signs (Past 12 Hours) Vital Signs Temp Pulse Pulse Resp BP Pulse Ox O2 Del Method 06/02/23 08:49 36.8 C 70 17 111/56 L 97 Room Air 06/02/23 05:55 70 06/02/23 05:37 71 06/02/23 02:39 36.5 C 70 18 184/98 H 94 Room Air 06/02/23 01:53 70 06/02/23 01:38 115 H 06/01/23 22:57 37 C 87 18 139/101 H 95 Room Air Exam (Neuro) Physical Exam: she is lying on her back with her eyes closed snoring with irregular deep respirations she has no response to shout , clap, or light sternal rub. She has decreased tone in the limbs and will withdraw all 4 limbs to deep pain arms greater than legs. When I stimulate her arms with deep pain she will call out and go "hey", grimace, and withdraw. She quickly goes back to sleep. I got her to say the word "yes" with stimulation and asking her if she could hear me There is no facial droop. PG Care Time/CCT Total # of Minutes Spent Total Time Spent with Patient: Total time spent is greater than 50% in coordination of care (as documented) at patient's floor/unit and/or counseling patient: Coding Level of Care Code 80451 SUB INP/OBS CARE 2/35MIN Diagnoses Intraventricular hemorrhage I61.5 Generalized weakness R53.1 Lyme disease A69.20 Idiopathic polyneuropathy G60.9 Time Spent (min) 35
--- NOTE | 2023-06-02 10:08 | CT Scan Report ---
CT SCAN OF THE BRAIN WITHOUT IV CONTRAST CLINICAL HISTORY: Follow-up intraventricular hemorrhage. COMPARISON STUDY: CT scans of the brain dated 05/31/2023 and 05/13/2023. MRI of the brain dated . TECHNIQUE: Unenhanced axial CT scan of the brain is performed from the vertex to the skull base. A do se lowering technique was utilized adhering to the principles of ALARA. CT DOSE: 625.80 mGy.cm FINDINGS: Brain parenchyma: Again seen is a small volume of intraventricular hemorrhage within the posterior ho rn of the left lateral ventricle. This has modestly decreased from the 05/31/2023 examination. There is age-related involutional change noting moderate confluent subcortical and periventricular microangio pathic disease. No parenchymal hematoma is seen. There is no mass effect or evidence of acute territo rial ischemia by CT criteria. Brooks-white matter differentiation is preserved. A chronic infarct is no kashif in the right basal ganglia. No extra-axial fluid collection is seen. Ventricles, sulci, cisterns: Prominent secondary to involutional change. Intraventricular hemorrhage as detailed above. Intracranial vasculature: There is atherosclerotic calcification of the cavernous carotid arteries. Calvarium: Unremarkable. Sinuses and mastoids: The paranasal sinuses are clear. The mastoid air cells are well pneumatized. Orbits: The bony orbits are grossly intact. There are bilateral ocular lens implants. IMPRESSION: 1. Again seen is a small intraventricular hemorrhage within the posterior horn of the left lateral ve ntricle. This is modestly decreased from 05/31/2023. 2. No progressive hemorrhage is identified. 3. There is no parenchymal hematoma, mass effect, or evidence of acute territorial ischemia by CT cri teria. ACT 112: Negative or not required by law. Electronically signed by: Kenan Oleary M.D. 06/02/2023 10:06 AM
[2023-06-02] MEDS: cefTRIAXone SODIUM 2,000 MG in DEXTROSE 5% 50 ML IV SCH (11:11)
[2023-06-02] MEDS: LANTUS PER UNIT CHARGE SC SCH (11:58)
--- NOTE | 2023-06-02 17:53 | Hospitalist Progress Note ---
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 -Patient has been followed by Neurology for progressive focal motor weakness including progressive dysarthria and ataxia -Now with hemorrhagic stroke neurology is recommending instituting Keppra therapy Images pushed to [facility] but not yet connected to neurosurgery to see if any additional therapy could be offered for this patient -Patient's family states that she has had a steep decline in clinical status over the past two weeks prior to admission intermittently generalized weakness, and confused. Periods of confusion gradually increased in duration prior to admission. -Found to be Lyme IgG and IgM AB positive from 05/22, no other acute abnormalities noted on exam and workup -cleared by speech: tolerating diet when not delirious -transitioned to ceftriaxone IV given lack of improvement on doxycycline -Hold Xarelto at this time (3) HTN (hypertension): Plan: -chronic and stable, metoprolol, scheduled IV while holding lasix, isosorbide, valsartan (4) Lyme disease: Plan: -Found to be Lyme IgG and IgM antibody positive - on ceftriaxone. (5) Atrial fibrillation: Plan: -ECG today showing ventricular paced rhythm, rate controlled with metoprolol -Continue to hold Xarelto chronic systolic heart failure, stable (6) Diabetes mellitus type 2 with complications: Plan: -Hold oral agents -Monitor BSG q6h while NPO, goal is 110-160 will hold lantus and just use ssi (7) Hypothyroidism: Plan: -TSH on 05/22 WNL -Continue levothyroxine when able Plan Patient has improved after hemorrhagic stroke and Lyme disease meningits Patient's had recurrence of some delirium and needed chemical restraints on 06/02/2023 Admission and Anticipated Discharge Date Admission Date: May 25, 2023 Subjective this pt was agitated this am, pulled out IV and muhammad, given low dose ativan 0.25mg and haldol 0.25 and did have affect to calm patient, will have avialable if needed speech did advance diet on 06/01 Physical Exam Physical Exam: Sleepy but arousable awakens to pain, yells and falls asleep dysarthric cardiac exam is regular and rate controlled Results & Data Results & Data Vital Signs (Past 12 Hours) Vital Signs Temp Pulse Pulse Resp BP BP Pulse Ox 06/02/23 17:00 70 06/02/23 17:26 70 163/64 H 06/02/23 15:24 97.9 F 70 17 163/64 H 99 06/02/23 11:54 71 128/57 L 06/02/23 11:14 70 134/52 L 06/02/23 08:45 71 06/02/23 08:49 98.2 F 70 17 111/56 L 97 06/02/23 05:55 70 O2 Del Method 06/02/23 17:00 06/02/23 17:26 06/02/23 15:24 Room Air 06/02/23 11:54 06/02/23 11:14 06/02/23 08:45 06/02/23 08:49 Room Air 06/02/23 05:55 Laboratory Results review repeat CT head no changes PG Care Time/CCT Total # of Minutes Spent Total Time Spent with Patient: Total time spent is greater than 50% in coordination of care (as documented) at patient's floor/unit and/or counseling patient: Coding Level of Care Code 66078 SUB INP/OBS CARE 2/35MIN Diagnoses Hemorrhagic stroke I61.9 Generalized weakness R53.1 HTN (hypertension) I10 Lyme disease A69.20 Atrial fibrillation I48.91 Diabetes mellitus type 2 with complications E11.8 Hypothyroidism E03.9
[2023-06-02] MEDS ORDERED: HALOPERIDOL LACTATE 5 MG/ML 1 ML VIAL IV PRN (18:05)
[2023-06-03] MEDS: METOPROLOL TARTRATE 1 MG/ML VIAL IV SCH ×6 (00:02→19:56)
[2023-06-03] MEDS: PLASMA-LYTE A 1,000 ML IV SCH ×2 (03:13→16:27)
[2023-06-03] MEDS ORDERED: amLODIPine BESYLATE 5 MG TAB PO ONE (08:00)
[2023-06-03] MEDS: INSULIN ASPART PER UNIT CHARGE SC SCH ×4 (08:54→20:46)
[2023-06-03] MEDS ORDERED: IOVERSOL 350 MG 125mL Prefilled Syringe IV ONE (09:21)
[2023-06-03] MEDS: VALSARTAN 80 MG TAB PO SCH ×2 (09:30→20:00)
[2023-06-03] MEDS: LANTUS PER UNIT CHARGE SC SCH (09:31)
--- NOTE | 2023-06-03 09:38 | CT Scan Report ---
CT angio head w con CLINICAL HISTORY: 83 years-old Female with eval for vascuilar anomalies. Acute stroke like symptom s COMPARISON STUDY: Head CT 06/02/2023 TECHNIQUE: Following the IV administration of 117 cc of Optiray, CT angiogram of the brain was perfor med from the skull base to the vertex. Images are reviewed in the axial, sagittal, and coronal planes . 3-D MIPS images are created and assessed. IV contrast was administered without complication. All me asurements were obtained according to NASCET criteria. A dose lowering technique was utilized adherin g to the principles of ALARA. CT DOSE: 145.76 mGy.cm FINDINGS: CT ANGIOGRAM OF THE BRAIN: Atherosclerosis of the internal carotid arteries with at least 60% stenosis within the cavernous, cli noid and supraclinoid segments, right greater than left. The bilateral anterior and middle cerebral a rteries are also patent. Distal vertebral arteries and basilar artery appear patent. Mild multifocal luminal narrowing of the posterior cerebral arteries. There is no aneurysm, high-grade stenosis, or p roximal branch occlusion identified. Dural sinuses appear patent. Trace amount of acute ventricular hemorrhage again noted, most pronounced in the left lateral ventric le which appears stable to mildly decreased from yesterday's study. Involutional changes with chronic microvascular ischemic disease. IMPRESSION: 1. Small amount of acute intraventricular hemorrhage again noted, similar to mildly decreased from ye sterday's exam. 2. Atherosclerosis of the internal carotid arteries resulting in at least moderate to severe stenosis within the cavernous, clinoid and supraclinoid segments. 3. Otherwise unremarkable CTA. ACT 112: Negative or not required by law. The above report was generated using voice recognition software. It may contain grammatical, syntax o r spelling errors. Electronically signed by: Jordon Helms M.D. 06/03/2023 9:36 AM
[2023-06-03] MEDS: levETIRAcetam 500 MG in 0.9 % SODIUM CHLORIDE 100 ML IV SCH (11:38)
[2023-06-03] MEDS: cefTRIAXone SODIUM 2,000 MG in DEXTROSE 5% 50 ML IV SCH (12:30)
[2023-06-03] MEDS ORDERED: DEXTROSE 10% 1,000 ML IV PRN (15:28)
[2023-06-03] MEDS ORDERED: ACETAMINOPHEN 1,000 MG/100 ML VIAL IV STA (15:31)
--- NOTE | 2023-06-03 15:32 | Hospitalist Progress Note ---
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 -Patient has been followed by Neurology for progressive focal motor weakness including progressive dysarthria and ataxia -Now with hemorrhagic stroke neurology is recommending instituting Keppra therapy Images pushed to [facility] but not yet connected to neurosurgery to see if any additional therapy could be offered for this patient -Patient's family states that she has had a steep decline in clinical status over the past two weeks prior to admission intermittently generalized weakness, and confused. Periods of confusion gradually increased in duration prior to admission. -Found to be Lyme IgG and IgM AB positive from 05/22, no other acute abnormalities noted on exam and workup -cleared by speech: tolerating diet when not delirious -transitioned to ceftriaxone IV given lack of improvement on doxycycline -Hold Xarelto at this time (3) HTN (hypertension): Plan: -chronic and stable, metoprolol, scheduled IV while holding lasix, isosorbide, valsartan (4) Lyme disease: Plan: -Found to be Lyme IgG and IgM antibody positive - on ceftriaxone. (5) Atrial fibrillation: Plan: -ECG today showing ventricular paced rhythm, rate controlled with metoprolol -Continue to hold Xarelto chronic systolic heart failure, stable (6) Diabetes mellitus type 2 with complications: Plan: -Hold oral agents -Monitor BSG q6h while NPO, goal is 110-160 will hold lantus and just use ssi (7) Hypothyroidism: Plan: -TSH on 05/22 WNL -Continue levothyroxine when able Plan Patient has improved after hemorrhagic stroke and Lyme disease meningits Patient's had recurrence of some delirium and needed chemical restraints on 06/02/2023 Admission and Anticipated Discharge Date Admission Date: May 25, 2023 Subjective this pt was agitated patient was able to eat some food in the morning but then became agitated throughout the rest of the afternoon and was able to eat again some dinner for family. Family is wishing to discussed with palliative care but continue the support to see if she improves over the next few days Physical Exam Physical Exam: Sleepy but arousable awakens to pain, yells and falls asleep dysarthric cardiac exam is regular and rate controlled Results & Data Results & Data Vital Signs (Past 12 Hours) Vital Signs Temp Pulse Pulse Resp BP BP Pulse Ox 06/03/23 12:00 70 157/78 H 06/03/23 11:38 70 165/76 H 06/03/23 11:20 98.2 F 70 18 165/76 H 96 06/03/23 09:50 70 149/59 H 06/03/23 08:27 70 182/86 H 06/03/23 07:30 97.9 F 71 18 182/86 H 97 06/03/23 04:12 70 179/98 H 06/03/23 03:56 70 175/113 H O2 Del Method 06/03/23 12:00 06/03/23 11:38 06/03/23 11:20 Room Air 06/03/23 09:50 06/03/23 08:27 06/03/23 07:30 Room Air 06/03/23 04:12 06/03/23 03:56 PG Care Time/CCT Total # of Minutes Spent Total Time Spent with Patient: Total time spent is greater than 50% in coordination of care (as documented) at patient's floor/unit and/or counseling patient: Coding Level of Care Code 40967 SUB INP/OBS CARE 2/35MIN Diagnoses Hemorrhagic stroke I61.9 Generalized weakness R53.1 HTN (hypertension) I10 Lyme disease A69.20 Atrial fibrillation I48.91 Diabetes mellitus type 2 with complications E11.8 Hypothyroidism E03.9
[2023-06-03] MEDS ORDERED: TPN/PPN CONSULT PHARMACY PRN (15:55)
[2023-06-03] MEDS: LIDOCAINE 5% 1 PATCH TD SCH (16:21)
[2023-06-03] MEDS: LORazepam 2 MG/1 ML VIAL IV PRN (20:04)
[2023-06-04] MEDS: METOPROLOL TARTRATE 1 MG/ML VIAL IV SCH ×5 (00:37→17:00)
[2023-06-04] MEDS: levETIRAcetam 500 MG in 0.9 % SODIUM CHLORIDE 100 ML IV SCH ×2 (00:39→12:50)
[2023-06-04] MEDS: PLASMA-LYTE A 1,000 ML IV SCH ×2 (02:15→12:20)
[2023-06-04] MEDS: KETOROLAC TROMETHAMINE 15 MG/ML VIAL IV PRN ×2 (04:05→23:16)
[2023-06-04 07:12] LABS: BUN Creatinine Ratio 26.8 (10-20); Calcium 9.9 mg/dl (8.6-10.3); Est GFR (African American) 99.2 ml/min; Est GFR (Non-African American) 85.6 ml/min; Magnesium 1.9 mg/dl (1.7-2.4); Phosphorus 2.1 mg/dl (2.5-4.9); Potassium 3.2 mmol/L (3.5-5.1)
[2023-06-04] MEDS ORDERED: POTASSIUM PHOS 3 MMOL/1 ML INFUSION IV STA (07:21)
[2023-06-04] MEDS ORDERED: POTASSIUM PHOSPHATE 21 MMOL in SODIUM CHLORIDE 0.9% 500 ML IV ONE (07:30)
[2023-06-04] MEDS: INSULIN ASPART PER UNIT CHARGE SC SCH ×5 (08:39→20:51)
[2023-06-04] MEDS: VALSARTAN 80 MG TAB PO SCH ×2 (08:49→20:53)
[2023-06-04] MEDS: LIDOCAINE 5% 1 PATCH TD SCH (08:49)
[2023-06-04 09:56] LABS: Cryptococcal Antigen Not Detected (Not Detected); EBV DNA Quant PCR Not Detected copies/mL; EBV DNA Quant Source CSF; Lyme DNA PCR CSF or Synovial Not Detected (Not Detected); Lyme DNA Source CSF; Lyme IgG CSF BAND(S) PRESENT; Lyme IgM Band Pattern CSF DNR; Lyme IgM CSF NO BANDS DETECTED; Source CSF; VDRL Qualitative CSF Nonreactive (Nonreactive); West Nile Virus, PCR Source CSF; West Nile Virus, PCR, CSF NOT DETECTED (NOT DETECTED)
--- NOTE | 2023-06-04 10:56 | Pharmacy Report ---
Pharmacy Glycemic Short Note 2 - Date of Service June 04, 2023 - Glycemic Short BSG Results (Last 24 hours): 06/03/23 06/03/23 06/03/23 11:17 16:18 20:27 Glucose POC Glucose 178 H 85 118 H 06/04/23 06/04/23 06:22 07:34 Glucose 75 POC Glucose 103 H OUTPATIENT ANTIDIABETIC REGIMEN: * Lantus 10 units SQ qam and 20 units HS * metformin 500mg PO BID * sitagliptin 50mg PO daily HbA1C: 9.2% ASSESSMENT: 06/04: * BSGs yesterday were 12-323-53-118 mg/dL and patient received 16 units of insulin (15 units basal, 1 unit bolus). * Fasting BSG this morning was 75 mg/dL. * Patient only ate 20g carbs yesterday and 5g carbs this morning. Patient will to start PPN this afternoon. * Given downtrend in fasting BSG and initiation of PPN, basal insulin placed on hold and proceeded with q4 novolog only for today. PN was then discontinued in the afternoon prior to initiation as PO intake improved with lunch. Will re- assess basal needs in the tomorrow morning, unless evening BSGs trend up significantly. 06/01: * BSGs 994-26-39-109mg/dL the last 24h. Received 15 units of basal and 2 units of bolus insulin yesterday. * Patient now NPO with new intraventricular hemorrhage. Continues on ceftriaxone. * Basal discontinued given NPO status and low BSGs. Novolog q6 with loosened goal range 120-160 with same parameters. 05/31: * BSGs 012-937-160-175 mg/dL yesterday, with 20 units of basal and 15 units of c orrectional/prandial * Fasting 164 mg/dL this morning- will increase basal to home total dose * Carb ratio tightened slightly for elevated prandial BSGs yesterday 05/30: * BSGs within goal range the last 24h: 180-913-660-222mg/dL. Received 20 units of basal and 16 units of bolus insulin yesterday. * Stressors stable, tolerating diet. * No change to basal today. Novolog parameters tightened slightly for elevated prandial BSG today. 05/29: * Patient is an 83 year old female with DM2 on insulin and PO antihyperglycemic medications at home admitted with suspected lyme meningitis. Pharmacy consulted to assist with glycemic management in the setting of rising BSGs. * Patient has been receiving Lantus 5 units BID and Novolog with a correction factor only (50mg/dL/unit) so far in admission. BSGs the last 24h: 665-997-384-997-840-527-407mg/dL. Fasting BSG this AM, 270mg/dL (increased from 173 on 05/27). Received 10 units of basal and 8 units of bolus insulin yesterday. * Tolerating diet, receiving ceftriaxone 2gm q24h. * Will increase basal today given elevated fasting to 10 units BID (additional 5 units X 1 now). Novolog parameters tightened ~ moderate stress scale with carb coverage. PLAN FOR INPATIENT GLYCEMIC CONTROL: * Hold outpatient oral diabetes medications * Basal insulin * hold * Bolus insulin * NovoLog per scale q4h * Goal Range: Low 110 mg/dL - High 150 mg/dL * Correction Factor: 30 mg/dL/unit * Nutritional / Prandial insulin per carb ratio of 1 unit per 9 grams CHO consumed
[2023-06-04] MEDS: cefTRIAXone SODIUM 2,000 MG in DEXTROSE 5% 50 ML IV SCH (12:20)
[2023-06-04] MEDS ORDERED: THIAMINE HCL 100 MG in SYRINGE 9 ML IV STA (12:29)
--- NOTE | 2023-06-04 13:52 | Palliative Care Consultation ---
Date of Consultation June 04, 2023 Assessment & Plan (1) Palliative care encounter: I spoke with Mrs. Luke's daughter Pauline. She tells me that her mother has been unhappy for some time, even prior to this recent illness. Marylou's is in a mcfp after a major CVA and she had been living alone. With her progressive weakness, her son and their cousin had been staying with her to help with care. Caring for her at home is no longer an option and they are considering care in a SNF near [place] where Pauline lives. She tells me that her mother never talked about what she would want for her care if she were seriously ill and never completed an advance directive. Marylou felt strongly that her should have PEG for feeding after his stroke but never talked about what she would want. Since that time, Pauline suspects that Marylou has had second thoughts about the feeding tube and that she would not want one for herself. We talked about risks of artificial feeding and lack of evidence for clear benefit in elderly neurocompromised individuals. She also understands that Marylou would likely pull out a PEG tube. At this time, with her eating aat least part of her meals, Pauline would like to continue to watch her with oral intake only to see how she does. We talked about what quality of life would mean to Marylou and whether she would want to live like she is now, as well as what would bring meaning to her life. Pauline requests continuing current care and monitoring her progress. If she does not show significant improvement, she feels that shift to comfort focused care would be more appropriate. History of Present Illness Reason for Consultation: goals of care Requesting Physician: Dr. Vargas Attending Physician: Kamran Vargas MD History of Present Illness 83 yo lady with history of CAD, heart failure, cardiomyopathy with ICD, afib, pulmonary hypertension, dysarthria and diabetes. She was hospitalized last month with generalized weakness and back pain. She was found to be Lyme positive by neurology and had been receiving doxycycline. She presented this admission with progressive weakness and poor po intake. Her blood pressure was elevated and she was not ambulatory and requiring significant care at home. During this admission, she developed a right intraventricular hemorrhagic CVA. She continues to be encephalopathic with poor po intake despite rotation to ceftriaxone for Lyme. Blood sugars have been reasonably stable and her renal function is WNL. She continues to have hypertension but vital signs are otherwise stable. She is sleeping and moans with touch. She does answer "no" when asked if she is having pain. She ate approximately 50% of her lunch but requires feeding. Allergies Allergy/AdvReac Type Severity Reaction Status Date / Time Penicillins Allergy Severe RASH,JAQUAN Verified 05/22/23 12:58 NG Home Medications Medication Instructions Recorded Confirmed Type Wheeled Walker #1 ea 03/02/22 05/24/23 Rx isosorbide mononitrate 30 mg 30 mg PO DAILY #90 tabs 08/14/22 05/24/23 Rx tablet,extended release 24 hr aspirin 81 mg tablet,delayed 81 mg PO QAM #30 tabs 11/10/22 05/24/23 Rx release cyanocobalamin (vitamin B-12) 1,000 mcg PO DAILY #30 caps 11/10/22 05/24/23 Rx 1,000 mcg capsule blood sugar diagnostic #100 ea 11/13/22 05/24/23 Rx blood-glucose meter (OneTouch #1 ea 11/13/22 05/24/23 Rx Ultra2 Meter) lancets 30 gauge (OneTouch Delica #100 ea 11/13/22 05/24/23 Rx Plus Lancet) metformin 500 mg tablet 500 mg PO BID #180 tabs 01/12/23 05/24/23 Rx atorvastatin 20 mg tablet 20 mg PO HS #90 tabs 02/15/23 05/24/23 Rx flash glucose scanning reader #2 ea 02/15/23 05/24/23 Rx (FreeStyle Lilli 14 Day [place]) flash glucose sensor (FreeStyle #2 ea 02/15/23 05/24/23 Rx Lilli 14 Day Sensor kit) pen needle, diabetic 31 gauge x #200 ea 03/13/23 05/24/23 Rx 3/16" (Comfort EZ Pen [place]) valsartan 40 mg tablet 40 mg PO BID #180 tabs 03/13/23 05/24/23 Rx quetiapine 25 mg tablet (Seroquel) 12.5 mg PO HS #45 tabs 04/13/23 05/24/23 Rx insulin glargine U-300 conc 300 See Rx Instructions subcut PM #9 mL 05/10/23 05/24/23 Rx unit/mL (1.5 mL) subcutaneous pen (Salasujoelaman SolKendallar U-300 Insulin) acetaminophen 325 mg tablet 325 mg PO Q6 PRN Pain 05/24/23 05/24/23 History (Tylenol) furosemide 40 mg tablet 40 mg PO BID 05/24/23 05/24/23 History levothyroxine 50 mcg tablet 50 mcg PO DAILYBB 05/24/23 05/24/23 History metoprolol succinate 100 mg 100 mg PO QAM 05/24/23 05/24/23 History tablet,extended release 24 hr potassium chloride 20 mEq 20 meq PO AMHS 05/24/23 05/24/23 History tablet,extended release rivaroxaban 15 mg tablet (Xarelto) 15 mg PO QPM 05/24/23 05/24/23 History sitagliptin phosphate 50 mg tablet 50 mg PO QAM 05/24/23 05/24/23 History Patient History Medical History Anticoagulant long-term use Atrial fibrillation CAD in [place] artery Cardiomyopathy Chronic diastolic congestive heart failure Chronic kidney disease (CKD), stage III (moderate) Cystocele 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 Diabetic peripheral neuropathy Diabetic retinopathy, nonproliferative Digoxin toxicity HTN (hypertension) Hypercholesterolemia Hypothyroidism Kidney stones LBBB (left bundle branch block) Mitral regurgitation Multiple joint pain Nocturnal hypoxia Psoriasis Pulmonary hypertension Restrictive lung disease Tricuspid valve insufficiency Surgical History History of appendectomy History of cholecystectomy History of hysterectomy S/P AV bibi ablation Status post implantation of automatic cardioverter/defibrillator (AICD) Status post implantation of automatic cardioverter/defibrillator (AICD) 09/14 [facility] Family History Family/Other Cancer Mother Diabetes Myocardial infarction Other Prostate cancer Denies family history of Ovarian cancer Breast cancer Colorectal cancer Social History Smoking Status: Never smoker Second Hand Exposure: No; Do You Dip or Chew Tobacco: No; Hx Alcohol Use: No Hx Substance Use: No Preferred Language: Hungarian Communication Ability: Impaired Visual Impairment: No Limitations Hearing Ability: Normal Compressed Yeast Supervisor Required: No Beliefs That Will Affect Care: None marital status: Current Living Situation: Family Current Living Situation Comment: current occupational status: retired Feels Safe at Home: Yes Childhood Exposure to Second-Hand Smoke: No Diet: diabetic Diet Comment: diabetic Dental Care, Regularly: No Physical Activity Frequency: 5-6 Times per Week Seatbelt Use: never Sunscreen Use: No Assistive Devices: Cane, Glasses and Walker Review of Systems Review of Systems: Pain 0/3 Physical Exam Constitutional: + ill appearing Respiratory: normal respiratory effort; no labored breathing Cardiovascular: Rate/Rhythm: regular rate and regular rhythm Skin: warm and dry Neurologic: + not awake Results & Data Vital Signs (Past 12 Hours) Vital Signs Temp Pulse Pulse Resp BP BP BP 06/04/23 13:07 74 151/81 H 06/04/23 12:49 70 188/102 H 06/04/23 11:35 98.4 F 70 17 188/102 H 06/04/23 09:08 70 166/84 H 06/04/23 08:48 70 172/81 H 06/04/23 08:46 70 18 172/81 H 06/04/23 07:56 74 06/04/23 04:15 70 136/96 06/04/23 04:01 74 155/85 H 06/04/23 03:50 97.5 F L 70 19 174/69 H Pulse Ox O2 Del Method 06/04/23 13:07 06/04/23 12:49 06/04/23 11:35 98 Room Air 06/04/23 09:08 06/04/23 08:48 06/04/23 08:46 97 Room Air 06/04/23 07:56 06/04/23 04:15 06/04/23 04:01 06/04/23 03:50 97 Room Air PG Care Time/CCT Total # of Minutes Spent Total Time Spent: 75 Total Time Spent with Patient: Total time spent is greater than 50% in coordination of care (as documented) at patient's floor/unit and/or counseling patient: goals of care, artificial feeding, family education and support Coding Level of Care Code 49055 INT INP/OBS CARE 3/75MIN Diagnoses Palliative care encounter Z51.5
[2023-06-04] MEDS ORDERED: PERIPHERAL TPN IV SCH (16:00)
[2023-06-04] MEDS ORDERED: CLINOLIPID 20% IV FAT EMULSION 250 ML IV SCH (16:00)
[2023-06-04] MEDS ORDERED: [UNRECOGNIZED DRUG - OTHER] IV SCH (16:00)
[2023-06-04] MEDS ORDERED: hydrALAZINE HCL 20 MG/ML VIAL IV PRN (18:33)
[2023-06-04] MEDS ORDERED: METOPROLOL TARTRATE 1 MG/ML VIAL IV PRN (18:34)
--- NOTE | 2023-06-04 18:34 | Hospitalist Progress Note ---
Date of Service June 04, 2023 Assessment & Plan (1) Hemorrhagic stroke: Plan: approx 2 cm right intraventricular hemorrhagic stroke, family aware, patient has improved but now is more delerius/agitated Intravenous scheduled metoprolol to help with A-fib and to control bp, will continue to hold asa, and Xarelto pt is currently Past bedside swallowing exam outlook is improved [facility] neurosurgery recommended repeat vascular imaging of head , CT angiography shows the intraventricular hemorrhage seen mildly decreasing. Atherosclerosis of internal carotid arteries resulting in moderate to severe stenosis of the cavernous clinoid and supraclinoid segments otherwise are more unremarkable otherwise control blood pressure and reverse anticoagulation restart p.o. 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 -Patient has been followed by Neurology for progressive focal motor weakness including progressive dysarthria and ataxia -Now with hemorrhagic stroke neurology is recommending instituting Keppra therapy Images pushed to [facility] but not yet connected to neurosurgery to see if any additional therapy could be offered for this patient -Patient's family states that she has had a steep decline in clinical status over the past two weeks prior to admission intermittently generalized weakness, and confused. Periods of confusion gradually increased in duration prior to admission. -Found to be Lyme IgG and IgM AB positive from 05/22, no other acute abnormalities noted on exam and workup -cleared by speech: tolerating diet when not delirious -transitioned to ceftriaxone IV given lack of improvement on doxycycline -Hold Xarelto at this time we will not restart Xarelto given intraventricular hemorrhage (3) HTN (hypertension): Plan: -chronic and stable, resume p.o. metoprolol and isosorbide we will add back valsartan if blood pressure stable on these medications continue holding lasix,, valsartan (4) Lyme disease: Plan: -Found to be Lyme IgG and IgM antibody positive - on ceftriaxone. (5) Atrial fibrillation: Plan: -ECG today showing ventricular paced rhythm, rate controlled with metoprolol convert to tartrate dose 50 twice daily in the evening of 8 7 -Continue to hold Xarelto chronic systolic heart failure, stable (6) Diabetes mellitus type 2 with complications: Plan: -Hold oral agents -Monitor BSG q6h while NPO, goal is 110-160 will hold lantus and just use ssi as patient begins to eat may reinstitute Lantus if needed (7) Hypothyroidism: Plan: -TSH on 05/22 WNL -Continue levothyroxine restarted on the evening of 06/04 Plan Patient has improved after hemorrhagic stroke and Lyme disease meningits patient will need snf facility at discharge Admission and Anticipated Discharge Date Admission Date: May 25, 2023 Subjective patient has been more awake today eating intermittently throughout the day. Because of her amount of intake we are not going to pursue peripheral nutrition therapy continue to support with bedside feeding. She has less complaint of pain today Physical Exam Physical Exam: arousable still dysarthric able to voice some words able to communicate does follow commands may have some facial droop but no focal deficits to her arms or legs card exam is regular Results & Data Results & Data Vital Signs (Past 12 Hours) Vital Signs Temp Pulse Pulse Resp BP BP BP 06/04/23 16:00 98.4 F 70 17 144/91 H 06/04/23 17:16 72 144/91 H 06/04/23 17:00 71 168/80 H 06/04/23 15:16 70 06/04/23 13:07 74 151/81 H 06/04/23 12:49 70 188/102 H 06/04/23 11:35 98.4 F 70 17 188/102 H 06/04/23 09:08 70 166/84 H 06/04/23 08:48 70 172/81 H 06/04/23 08:46 70 18 172/81 H 06/04/23 07:56 74 Pulse Ox O2 Del Method 06/04/23 16:00 96 Room Air 06/04/23 17:16 06/04/23 17:00 06/04/23 15:16 06/04/23 13:07 06/04/23 12:49 06/04/23 11:35 98 Room Air 06/04/23 09:08 06/04/23 08:48 06/04/23 08:46 97 Room Air 06/04/23 07:56 Laboratory Results reviewed chemistry reviewed phosphorus PG Care Time/CCT Total # of Minutes Spent Total Time Spent with Patient: Total time spent is greater than 50% in coordination of care (as documented) at patient's floor/unit and/or counseling patient: Coding Level of Care Code 45950 SUB INP/OBS CARE 350MIN Diagnoses Hemorrhagic stroke I61.9 Generalized weakness R53.1 HTN (hypertension) I10 Lyme disease A69.20 Atrial fibrillation I48.91 Diabetes mellitus type 2 with complications E11.8 Hypothyroidism E03.9
[2023-06-04] MEDS: METOPROLOL TARTRATE 50 MG TAB PO SCH (20:52)
[2023-06-04] MEDS ORDERED: STOP CLINOLIPID SCH (22:00)
[2023-06-04] MEDS: ACETAMINOPHEN 1,000 MG/100 ML VIAL IV PRN (22:47)
[2023-06-04] MEDS: hydrALAZINE HCL 20 MG/ML VIAL IV PRN (22:52)
[2023-06-04] MEDS: LORazepam 2 MG/1 ML VIAL IV PRN (23:59)
[2023-06-05] MEDS: PLASMA-LYTE A 1,000 ML IV SCH ×3 (00:05→19:20)
[2023-06-05] MEDS: levETIRAcetam 500 MG in 0.9 % SODIUM CHLORIDE 100 ML IV SCH ×2 (00:06→13:08)
[2023-06-05 07:20] LABS: BUN Creatinine Ratio 24.5 (10-20); Calcium 9.8 mg/dl (8.6-10.3); Est GFR (African American) 101.1 ml/min; Est GFR (Non-African American) 87.2 ml/min; Magnesium 1.8 mg/dl (1.7-2.4); Phosphorus 1.8 mg/dl (2.5-4.9); Potassium 3.3 mmol/L (3.5-5.1)
[2023-06-05] MEDS: LEVOTHYROXINE SODIUM 50 MCG TABLET PO SCH (07:36)
[2023-06-05] MEDS ORDERED: POTASSIUM PHOS 3 MMOL/1 ML INFUSION IV STA (07:56)
--- NOTE | 2023-06-05 07:58 | Hospitalist Progress Note ---
Date of Service June 05, 2023 Assessment & Plan (1) Hemorrhagic stroke: Plan: approx 2 cm right intraventricular hemorrhagic stroke, family aware, patient has improved but now is more delerius/agitated Intravenous scheduled metoprolol to help with A-fib and to control bp, will continue to hold asa, and Xarelto pt is currently Past bedside swallowing exam outlook is improved [facility] neurosurgery recommended repeat vascular imaging of head , CT angiography shows the intraventricular hemorrhage seen mildly decreasing. Atherosclerosis of internal carotid arteries resulting in moderate to severe stenosis of the cavernous clinoid and supraclinoid segments otherwise are more unremarkable otherwise control blood pressure and reverse anticoagulation< Hold Xarelto at this time we will not restart Xarelto given intraventricular hemorrhage restart p.o. 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 Duration of treatment to be 14-21 days, started on LD 06/09- (3) HTN (hypertension): Plan: -chronic and stable, resume p.o. metoprolol and isosorbide add back valsartan (4) Lyme disease: Plan: -Found to be Lyme IgG and IgM antibody positive - on ceftriaxone. (5) Atrial fibrillation: Plan: -ECG today showing ventricular paced rhythm, rate controlled with metoprolol convert to tartrate dose 50 twice daily in the evening of 06 04 -Continue to hold Xarelto chronic systolic heart failure, stable (6) Diabetes mellitus type 2 with complications: Plan: -Hold oral agents -Monitor BSG q6h while NPO, goal is 110-160 will hold lantus and just use ssi as patient begins to eat may reinstitute Lantus if needed (7) Hypothyroidism: Plan: -TSH on 05/22 WNL -Continue levothyroxine restarted on the evening of 06/04 Plan Patient has improved after hemorrhagic stroke and Lyme disease meningits patient will need custodial facility at discharge Admission and Anticipated Discharge Date Admission Date: May 25, 2023 Subjective Patient is slightly more awake alert today she is yelling out however in the afternoon we will try low-dose Zyprexa to see if it improves her agitation and likely hospital delirium Patient able to take better p.o. intake if fed likely will need subacute rehab placement at time of discharge Physical Exam Physical Exam: arousable still dysarthric patient able to continue to try to communicate spontaneously moves extremities follows commands may have some facial droop but no focal deficits to her arms or legs card exam is regular Results & Data Results & Data Vital Signs (Past 12 Hours) Vital Signs Temp Pulse Pulse Resp BP BP Pulse Ox 06/05/23 07:40 97.3 F L 70 21 181/79 H 94 06/05/23 07:21 84 06/05/23 03:02 98.4 F 69 18 177/71 H 94 06/04/23 23:26 70 06/05/23 00:00 147/73 H 06/04/23 22:49 97.7 F 70 18 190/105 H 94 O2 Del Method 06/05/23 07:40 Room Air 06/05/23 07:21 06/05/23 03:02 Room Air 06/04/23 23:26 06/05/23 00:00 06/04/23 22:49 Room Air PG Care Time/CCT Total # of Minutes Spent Total Time Spent with Patient: Total time spent is greater than 50% in coordination of care (as documented) at patient's floor/unit and/or counseling patient: Coding Level of Care Code 53627 SUB INP/OBS CARE 3/50MIN Diagnoses Hemorrhagic stroke I61.9 Generalized weakness R53.1 HTN (hypertension) I10 Lyme disease A69.20 Atrial fibrillation I48.91 Diabetes mellitus type 2 with complications E11.8 Hypothyroidism E03.9
[2023-06-05] MEDS ORDERED: POTASSIUM PHOSPHATE 21 MMOL in SODIUM CHLORIDE 0.9% 500 ML IV ONE (08:15)
[2023-06-05] MEDS: LIDOCAINE 5% 1 PATCH TD SCH (08:28)
[2023-06-05] MEDS: VALSARTAN 80 MG TAB PO SCH ×2 (08:28→20:43)
[2023-06-05] MEDS: METOPROLOL TARTRATE 50 MG TAB PO SCH ×2 (08:28→20:43)
[2023-06-05] MEDS: LANTUS PER UNIT CHARGE SC SCH (08:32)
[2023-06-05] MEDS: INSULIN ASPART PER UNIT CHARGE SC SCH ×4 (08:33→20:28)
[2023-06-05] MEDS: ISOSORBIDE MONO EXTENDED REL 30 MG TABCR PO SCH (09:48)
[2023-06-05] MEDS ORDERED: OLANZapine ZYDIS 5 MG ORALLY DIS. TAB PO ONE (10:45)
[2023-06-05] MEDS: cefTRIAXone SODIUM 2,000 MG in DEXTROSE 5% 50 ML IV SCH (12:31)
[2023-06-05] MEDS: KETOROLAC TROMETHAMINE 15 MG/ML VIAL IV PRN (13:07)
--- NOTE | 2023-06-05 13:10 | Palliative Care Progress Note ---
Date of Service June 05, 2023 Assessment & Plan (1) Palliative care encounter: Plan: Met with daughter, Pauline, and her at bedside. Marylou's eating about 50% or more of her meals and taking po medications. Pauline wants to focus on what she can eat on her own and tells me that Marylou would not want retirement artificial nutrition. She is hopeful that Marylou will be able to go to SNF in [place] near her. Case management is working with her on this. We talked about initial trial of skilled care to see what new normal will be for Marylou but care would likely be terminal clerk. Pauline would like to try rehab if possible but overall would not want aggressive care for her mother moving forward. Discussed with RN and case management Admission and Anticipated Discharge Date Admission Date: May 25, 2023 Subjective More alert today and visiting with family. Continues to have dysarthria but answers questions appropriately and is able to tell me that she has 10 grandchildren. She denies pain or shortness of breath. Review of Systems Review of Systems: ESAS Pain 0/3 Dyspnea 0/3 Nausea 0/3 Drowsiness 0/3 Physical Exam Constitutional: + ill appearing Respiratory: normal respiratory effort; no labored breathing Cardiovascular: Rate/Rhythm: regular rate and regular rhythm Neurologic: moves all extremities dysarthria, facial droop Results & Data Vital Signs (Past 12 Hours) Vital Signs Temp Pulse Pulse Resp BP BP Pulse Ox 06/05/23 11:25 97.7 F 72 18 132/73 93 06/05/23 07:40 97.3 F L 70 21 181/79 H 94 06/05/23 07:21 84 06/05/23 03:02 98.4 F 69 18 177/71 H 94 O2 Del Method 06/05/23 11:25 Room Air 06/05/23 07:40 Room Air 06/05/23 07:21 06/05/23 03:02 Room Air PG Care Time/CCT Total # of Minutes Spent Total Time Spent: 38 Total Time Spent with Patient: Total time spent is greater than 50% in coordination of care (as documented) at patient's floor/unit and/or counseling patient:goals of care, patient and family education and support, coordination of care Coding Level of Care Code 59898 SUB INP/OBS CARE 2/35MIN Diagnoses Palliative care encounter Z51.5
[2023-06-05] MEDS: levETIRAcetam 500 MG TAB PO SCH (20:42)
[2023-06-05] MEDS: LORazepam 2 MG/1 ML VIAL IV PRN (20:51)
[2023-06-05] MEDS: ACETAMINOPHEN 1,000 MG/100 ML VIAL IV PRN (22:59)
[2023-06-06] MEDS: LEVOTHYROXINE SODIUM 50 MCG TABLET PO SCH (05:28)
[2023-06-06] MEDS: PLASMA-LYTE A 1,000 ML IV SCH ×3 (05:32→21:37)
[2023-06-06] MEDS: hydrALAZINE HCL 20 MG/ML VIAL IV PRN (07:28)
[2023-06-06] MEDS: levETIRAcetam 500 MG TAB PO SCH ×2 (07:29→21:41)
[2023-06-06] MEDS: VALSARTAN 80 MG TAB PO SCH ×2 (07:29→21:41)
[2023-06-06] MEDS: METOPROLOL TARTRATE 50 MG TAB PO SCH (07:29)
[2023-06-06] MEDS: ISOSORBIDE MONO EXTENDED REL 30 MG TABCR PO SCH (07:29)
[2023-06-06] MEDS: LIDOCAINE 5% 1 PATCH TD SCH (07:30)
[2023-06-06] MEDS ORDERED: Nursing to Pharmacy Communication SCH (08:00)
[2023-06-06] MEDS ORDERED: METOPROLOL TARTRATE 100 MG TAB PO SCH (09:00)
[2023-06-06] MEDS: LANTUS PER UNIT CHARGE SC SCH (09:17)
[2023-06-06] MEDS: INSULIN ASPART PER UNIT CHARGE SC SCH ×4 (09:18→21:22)
[2023-06-06 09:27] LABS: BUN Creatinine Ratio 22.9 (10-20); Calcium 10.1 mg/dl (8.6-10.3); Creatinine Clr Calc Pharmacy 81.7 ml/min; Est GFR (African American) 104.4 ml/min; Est GFR (Non-African American) 90.1 ml/min; Magnesium 1.8 mg/dl (1.7-2.4); Phosphorus 2.2 mg/dl (2.5-4.9); Potassium 3.3 mmol/L (3.5-5.1)
[2023-06-06] MEDS: cefTRIAXone SODIUM 2,000 MG in DEXTROSE 5% 50 ML IV SCH (11:10)
--- NOTE | 2023-06-06 13:18 | Pharmacy Report ---
Pharmacy Glycemic Short Note 2 - Date of Service June 06, 2023 - Glycemic Short BSG Results (Last 24 hours): 06/05/23 06/05/23 06/06/23 16:15 20:24 07:40 Glucose POC Glucose 139 H 100 H 147 H 06/06/23 06/06/23 07:44 11:34 Glucose 161 H POC Glucose 179 H OUTPATIENT ANTIDIABETIC REGIMEN: * Lantus 10 units SQ qam and 20 units HS * metformin 500mg PO BID * sitagliptin 50mg PO daily HbA1C: 9.2% ASSESSMENT: 06/06: * BSGs ranging 100-207 mg/dL yesterday (peaking at lunchtime) * Received 26 units of insulin (8 units of basal, 18 units of prandial/correctional bolus) * Fasting BSG elevated at 147 mg/dL - basal restarted yesterday, will continue that dose and increase tomorrow if still elevated 06/04: * BSGs yesterday were 53-174-32-118 mg/dL and patient received 16 units of insulin (15 units basal, 1 unit bolus). * Fasting BSG this morning was 75 mg/dL. * Patient only ate 20g carbs yesterday and 5g carbs this morning. Patient will to start PPN this afternoon. * Given downtrend in fasting BSG and initiation of PPN, basal insulin placed on hold and proceeded with q4 novolog only for today. PN was then discontinued in the afternoon prior to initiation as PO intake improved with lunch. Will re- assess basal needs in the tomorrow morning, unless evening BSGs trend up significantly. Background: * Patient is an 83 year old female with DM2 on insulin and PO antihyperglycemic medications at home admitted with suspected lyme meningitis. Pharmacy consulted to assist with glycemic management in the setting of rising BSGs. * Patient has been receiving Lantus 5 units BID and Novolog with a correction factor only (50mg/dL/unit) so far in admission. BSGs the last 24h: 612-338-232-969-847-912-407mg/dL. Fasting BSG this AM, 270mg/dL (increased from 173 on 05/27). Received 10 units of basal and 8 units of bolus insulin yesterday. * Tolerating diet, receiving ceftriaxone 2gm q24h. * Will increase basal today given elevated fasting to 10 units BID (additional 5 units X 1 now). Novolog parameters tightened ~ moderate stress scale with carb coverage. PLAN FOR INPATIENT GLYCEMIC CONTROL: * Hold outpatient oral diabetes medications * Basal insulin * Lantus 8 units SC daily * Bolus insulin * NovoLog per scale ACHS * Goal Range: Low 110 mg/dL - High 150 mg/dL * Correction Factor: 30 mg/dL/unit * Nutritional / Prandial insulin per carb ratio of 1 unit per 9 grams CHO consumed
[2023-06-06] MEDS ORDERED: POTASSIUM PHOS 3 MMOL/1 ML INFUSION IV STA (13:44)
[2023-06-06] MEDS ORDERED: POTASSIUM PHOSPHATE 21 MMOL in SODIUM CHLORIDE 0.9% 500 ML IV ONE (13:45)
--- NOTE | 2023-06-06 13:46 | Hospitalist Progress Note ---
Date of Service June 06, 2023 Assessment & Plan (1) Hemorrhagic stroke: Plan: waxing and waning neurological status prompting repeat CT head on 06/06 continue support hydration with IV fluids approx 2 cm right intraventricular hemorrhagic stroke, family aware, Intravenous scheduled metoprolol to help with A-fib and to control bp, will continue to hold asa, and Xarelto would not restart Xarelto at discharge Past bedside swallowing exam outlook is improved [facility] neurosurgery recommended repeat vascular imaging of head , CT angiography shows the intraventricular hemorrhage seen mildly decreasing. 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 Duration of treatment to be 14-21 days, started on LD 06/09- (3) HTN (hypertension): Plan: -chronic and stable, resume p.o. metoprolol and isosorbide add back valsartan if unable to take p.o. may need to transfer back to telemetry for intravenous beta-mauricio use (4) Lyme disease: Plan: -Found to be Lyme IgG and IgM antibody positive - on ceftriaxone. (5) Atrial fibrillation: Plan: -ECG today showing ventricular paced rhythm, rate controlled with metoprolol convert to tartrate dose 50 twice daily in the evening of 06 04 -Continue to hold Xarelto chronic systolic heart failure, stable (6) Diabetes mellitus type 2 with complications: Plan: -Hold oral agents -Monitor BSG q6h while NPO, goal is 110-160 will hold lantus and just use ssi as patient begins to eat may reinstitute Lantus if needed (7) Hypothyroidism: Plan: -TSH on 05/22 WNL -Continue levothyroxine restarted on the evening of 06/04 Plan waxing and waning attempting for placement at [facility] Admission and Anticipated Discharge Date Admission Date: May 25, 2023 Subjective patient is less interactive does yell to painful stimuli but does not follow any commands did not have meaningful oral intake pending repeat CT scan to reevaluate intraventricular hemorrhage, did receive lorazepam around 8 or 9 PM 1 day prior Physical Exam Physical Exam: only barely responds to his sternal rub does have some patterned respirations but not with significant pauses that she had over the weekend spontaneously withdraws all extremities to pain but does not have purposeful movement or taken meaningful oral intake Results & Data Results & Data Vital Signs (Past 12 Hours) Vital Signs Temp Pulse Resp BP Pulse Ox O2 Del Method 06/06/23 13:25 97.5 F L 70 16 135/70 93 Room Air 06/06/23 09:22 69 130/67 06/06/23 07:55 71 139/58 L 06/06/23 07:04 97.0 F L 71 18 216/91 H 96 Room Air Laboratory Results reviewed chemistry PG Care Time/CCT Total # of Minutes Spent Total Time Spent with Patient: Total time spent is greater than 50% in coordination of care (as documented) at patient's floor/unit and/or counseling patient: Coding Level of Care Code 25323 SUB INP/OBS CARE 3/50MIN Diagnoses Hemorrhagic stroke I61.9 Generalized weakness R53.1 HTN (hypertension) I10 Lyme disease A69.20 Atrial fibrillation I48.91 Diabetes mellitus type 2 with complications E11.8 Hypothyroidism E03.9
--- NOTE | 2023-06-06 14:57 | CT Scan Report ---
CT SCAN OF THE BRAIN WITHOUT IV CONTRAST CLINICAL HISTORY: Declining mental status. Follow-up intraventricular hemorrhage. COMPARISON STUDY: Prior CT scans of the brain, most recently dated 06/02/2023. MRI of the brain dated 01/30/2023. TECHNIQUE: Unenhanced axial CT scan of the brain is performed from the vertex to the skull base. A do se lowering technique was utilized adhering to the principles of ALARA. CT DOSE: 703.85 mGy.cm FINDINGS: Brain parenchyma: Again seen is a small volume of intraventricular hemorrhage within the posterior ho rn of the left lateral ventricle. This has continues to decrease in size as compared to 06/03/2023. The re is age-related involutional change noting moderate confluent subcortical and periventricular micro angiopathic disease. No parenchymal hematoma is seen. There is no mass effect or evidence of acute te rritorial ischemia by CT criteria. Brooks-white matter differentiation is preserved. A chronic infarct is noted in the right basal ganglia. No extra-axial fluid collection is seen. Ventricles, sulci, cisterns: Prominent secondary to involutional change. Intraventricular hemorrhage as detailed above. Intracranial vasculature: There is atherosclerotic calcification of the cavernous carotid and vertebr al arteries. Calvarium: Unremarkable. Sinuses and mastoids: The paranasal sinuses are clear. The mastoid air cells are well pneumatized. Orbits: The bony orbits are grossly intact. There are bilateral ocular lens implants. IMPRESSION: 1. Again seen is a small intraventricular hemorrhage within the posterior horn of the left lateral ve ntricle. This has continued to decrease in size as compared to 06/03/2023. 2. No progressive hemorrhage is identified. 3. There is no parenchymal hematoma, mass effect, or evidence of acute territorial ischemia by CT cri teria. ACT 112: Negative or not required by law. Electronically signed by: Kenan Oleary M.D. 06/06/2023 2:56 PM
[2023-06-07] MEDS: LEVOTHYROXINE SODIUM 50 MCG TABLET PO SCH (06:00)
[2023-06-07] MEDS: PLASMA-LYTE A 1,000 ML IV SCH ×2 (06:02→16:22)
[2023-06-07 08:38] LABS: Creatinine Clr Calc Pharmacy 74.8 ml/min; Est GFR (African American) 98.1 ml/min; Est GFR (Non-African American) 84.6 ml/min
[2023-06-07] MEDS: INSULIN ASPART PER UNIT CHARGE SC SCH ×3 (08:46→16:39)
[2023-06-07] MEDS: ISOSORBIDE MONO EXTENDED REL 30 MG TABCR PO SCH (09:14)
[2023-06-07] MEDS: VALSARTAN 80 MG TAB PO SCH ×2 (09:14→22:41)
[2023-06-07] MEDS: levETIRAcetam 500 MG TAB PO SCH (09:14)
[2023-06-07] MEDS: LIDOCAINE 5% 1 PATCH TD SCH (09:17)
[2023-06-07] MEDS: hydrALAZINE HCL 20 MG/ML VIAL IV PRN ×2 (09:22→16:22)
[2023-06-07] MEDS: LANTUS PER UNIT CHARGE SC SCH (10:32)
[2023-06-07] MEDS: cefTRIAXone SODIUM 2,000 MG in DEXTROSE 5% 50 ML IV SCH (13:25)
[2023-06-07] MEDS: KETOROLAC TROMETHAMINE 15 MG/ML VIAL IV PRN (13:27)
--- NOTE | 2023-06-07 14:55 | Hospitalist Progress Note ---
Date of Service June 07, 2023 Assessment & Plan (1) Hemorrhagic stroke: Plan: waxing and waning neurological status prompting repeat CT head on 06/06 continue support hydration with IV fluids Imaging showed improvement of size of hemorrhage however, patient remains lethargic. D/W palliative care: discussion with Pauline, if no improvement tomorrow, will consider transitioning to comfort. approx 2 cm right intraventricular hemorrhagic stroke, family aware, Intravenous scheduled metoprolol to help with A-fib and to control bp, will continue to hold asa, and Xarelto would not restart Xarelto at discharge Past bedside swallowing exam outlook is improved [place] neurosurgery recommended repeat vascular imaging of head , CT angiography shows the intraventricular hemorrhage seen mildly decreasing. 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 Duration of treatment to be 14-21 days, started on LD 06/09- (3) HTN (hypertension): Plan: -chronic and stable, resume p.o. metoprolol and isosorbide add back valsartan if unable to take p.o. may need to transfer back to telemetry for intravenous beta-mauricio use (4) Lyme disease: Plan: -Found to be Lyme IgG and IgM antibody positive - on ceftriaxone. (5) Atrial fibrillation: Plan: -ECG today showing ventricular paced rhythm, rate controlled with metoprolol convert to tartrate dose 50 twice daily in the evening of 06 04 -Continue to hold Xarelto chronic systolic heart failure, stable (6) Diabetes mellitus type 2 with complications: Plan: -Hold oral agents -Monitor BSG q6h while NPO, goal is 110-160 will hold lantus and just use ssi as patient begins to eat may reinstitute Lantus if needed (7) Hypothyroidism: Plan: -TSH on 05/22 WNL -Continue levothyroxine restarted on the evening of 06/04 Plan waxing and waning attempting for placement at [facility] Admission and Anticipated Discharge Date Admission Date: May 25, 2023 Subjective 83 yo female is lethargic. Review of Systems Review of Systems: All systems reviewed & are unremarkable except as noted in HPI & below Physical Exam Physical Exam: General: chronically ill-appearing HEENT: Normocephalic, atraumatic Chest/Pulm: No respiratory distress, clear breath sounds throughout Cardiac: RRR, no murmurs noted Abdomen: normoactive bowel sounds, soft, non-tender to palpation throughout Extremities: no edema noted in the BL LE's Neuro: lethargic Results & Data Results & Data Vital Signs (Past 12 Hours) Vital Signs Temp Pulse Resp BP Pulse Ox O2 Del Method 06/07/23 07:47 36.9 C 75 17 197/75 H 96 Room Air PG Care Time/CCT Total # of Minutes Spent Total Time Spent with Patient: Total time spent is greater than 50% in coordination of care (as documented) at patient's floor/unit and/or counseling patient: Coding Level of Care Code 44826 SUB INP/OBS CARE 3/50MIN Diagnoses Hemorrhagic stroke I61.9 Generalized weakness R53.1 HTN (hypertension) I10 Lyme disease A69.20 Atrial fibrillation I48.91 Diabetes mellitus type 2 with complications E11.8 Hypothyroidism E03.9 Time Spent (min) 50 Comment chart review
--- NOTE | 2023-06-07 14:55 | Palliative Care Progress Note ---
Date of Service June 07, 2023 Assessment & Plan (1) Palliative care encounter: Plan: Per RN, Pauline was concerned about Marylou's change in status. Called Pauline to discuss. No answer. We have discussed goals of care on two prior occasions. Marylou has had waxing and waning mental status and had been started on PPN previously because she was not able to safely take po. On discussion with Pauline, she felt that her mother would not want artificial nutrition. She was hopeful that Marylou would continue to show some improvement. They were able to have a good visit on Sunday when Marylou was awake and communicating, though this was limited with dysarthria. Pauline is aware that Marylou's overall prognosis is poor and though she had hoped to see continued improvement, she had said that if Marylou did not improve, she would want comfort focused care for her. Discussed with RN and Dr. Malagon Admission and Anticipated Discharge Date Admission Date: May 25, 2023 Subjective Sleeping. Does not arouse when her name is called. Does not follow simple commands. She had been more awake earlier but not able to safely take po. Review of Systems Review of Systems: Unobtainable due to reduced consciousness Physical Exam Constitutional: no acute distress Respiratory: normal respiratory effort; no labored breathing no apnea, no audible tracheal secretions Cardiovascular: Rate/Rhythm: regular rate and regular rhythm Skin: warm and dry Results & Data Vital Signs (Past 12 Hours) Vital Signs Temp Pulse Resp BP Pulse Ox O2 Del Method 06/07/23 07:47 98.4 F 75 17 197/75 H 96 Room Air PG Care Time/CCT Total # of Minutes Spent Total Time Spent with Patient: Total time spent is greater than 50% in coordination of care (as documented) at patient's floor/unit and/or counseling patient: Coding Level of Care Code 11202 SUB INP/OBS CARE 11/22MIN Diagnoses Palliative care encounter Z51.5
[2023-06-07] MEDS: levETIRAcetam 500 MG in 0.9 % SODIUM CHLORIDE 100 ML IV SCH (22:36)
[2023-06-08] MEDS: INSULIN ASPART PER UNIT CHARGE SC SCH ×6 (00:09→21:40)
[2023-06-08] MEDS: hydrALAZINE HCL 20 MG/ML VIAL IV PRN (00:27)
[2023-06-08] MEDS: KETOROLAC TROMETHAMINE 15 MG/ML VIAL IV PRN ×3 (00:27→17:44)
[2023-06-08] MEDS: PLASMA-LYTE A 1,000 ML IV SCH ×3 (03:01→21:05)
[2023-06-08] MEDS: LEVOTHYROXINE SODIUM 50 MCG TABLET PO SCH (06:40)
[2023-06-08] MEDS: VALSARTAN 80 MG TAB PO SCH ×2 (07:34→20:03)
[2023-06-08] MEDS: levETIRAcetam 500 MG in 0.9 % SODIUM CHLORIDE 100 ML IV SCH ×2 (07:35→20:01)
[2023-06-08] MEDS: ISOSORBIDE MONO EXTENDED REL 30 MG TABCR PO SCH (07:35)
[2023-06-08] MEDS: LIDOCAINE 5% 1 PATCH TD SCH (07:35)
[2023-06-08 07:41] LABS: Calcium 10.2 mg/dl (8.6-10.3); Magnesium 1.9 mg/dl (1.7-2.4); Potassium 3.3 mmol/L (3.5-5.1)
[2023-06-08 07:47] LABS: BUN Creatinine Ratio 28.3 (10-20); Est GFR (African American) 101.1 ml/min; Est GFR (Non-African American) 87.2 ml/min; Phosphorus 2.1 mg/dl (2.5-4.9)
--- NOTE | 2023-06-08 10:09 | Fluoroscopy Report ---
FL video swallow HISTORY: assess for aspiration TECHNIQUE: Video fluoroscopic evaluation of swallowing was performed in the AP and lateral projection s by the speech pathology staff. The patient is fed nectar-thick and thin liquid barium, a barium coa kashif wafer, and barium pudding. FLUOROSCOPY TIME: 1 minute and 30 seconds. A cine loop submitted. Ka,r: 9.7 mGy COMPARISON STUDY: None. FINDINGS: There is normal hyoid excursion and epiglottic deflection. There is a delayed initiation of swallowing with premature spillover resulting in trace silent aspiration with the thin liquid barium . Penetration without aspiration with the thicker barium consistencies. IMPRESSION: 1. Trace silent aspiration with the thin liquid barium. 2. Please see the speech pathologist report for detailed findings and recommendations. ACT 112: Negative or not required by law. Electronically signed by: Kailash Ovalle M.D. 06/08/2023 10:08 AM
[2023-06-08] MEDS: cefTRIAXone SODIUM 2,000 MG in DEXTROSE 5% 50 ML IV SCH (11:43)
--- NOTE | 2023-06-08 11:44 | Pharmacy Report ---
Pharmacy Glycemic Short Note 2 - Date of Service June 08, 2023 - Glycemic Short BSG Results (Last 24 hours): 06/07/23 06/07/23 06/08/23 16:30 23:37 05:46 Glucose POC Glucose 123 H 120 H 112 H 06/08/23 06/08/23 07:01 11:33 Glucose 89 POC Glucose 85 OUTPATIENT ANTIDIABETIC REGIMEN: * Lantus 10 units SQ qam and 20 units HS * metformin 500mg PO BID * sitagliptin 50mg PO daily HbA1C: 9.2% ASSESSMENT: 06/08/23 * Patient is NPO. * BSGs yesterday were [phone] mg/dL. Patient received only 2 units of basal. * BSGs today are 112-85 mg/dL. * Hold basal. * Increased goal range to 140-180 mg/dL. 06/06: * BSGs ranging 100-207 mg/dL yesterday (peaking at lunchtime) * Received 26 units of insulin (8 units of basal, 18 units of prandial/correctional bolus) * Fasting BSG elevated at 147 mg/dL - basal restarted yesterday, will continue that dose and increase tomorrow if still elevated 06/04: * BSGs yesterday were 24-291-48-118 mg/dL and patient received 16 units of insulin (15 units basal, 1 unit bolus). * Fasting BSG this morning was 75 mg/dL. * Patient only ate 20g carbs yesterday and 5g carbs this morning. Patient will to start PPN this afternoon. * Given downtrend in fasting BSG and initiation of PPN, basal insulin placed on hold and proceeded with q4 novolog only for today. PN was then discontinued in the afternoon prior to initiation as PO intake improved with lunch. Will re-assess basal needs in the tomorrow morning, unless evening BSGs trend up significantly. Background: * Patient is an 83 year old female with DM2 on insulin and PO antihyperglycemic medications at home admitted with suspected lyme meningitis. Pharmacy consulted to assist with glycemic management in the setting of rising BSGs. * Patient has been receiving Lantus 5 units BID and Novolog with a correction factor only (50mg/dL/unit) so far in admission. BSGs the last 24h: [phone]/dL. Fasting BSG this AM, 270mg/dL (increased from 173 on 05/27). Received 10 units of basal and 8 units of bolus insulin yesterday. * Tolerating diet, receiving ceftriaxone 2gm q24h. * Will increase basal today given elevated fasting to 10 units BID (additional 5 units X 1 now). Novolog parameters tightened ~ moderate stress scale with carb coverage. PLAN FOR INPATIENT GLYCEMIC CONTROL: * Hold outpatient oral diabetes medications * Basal insulin * Hold * Bolus insulin * NovoLog per scale ACHS * Goal Range: Low 140 mg/dL - High 180 mg/dL * Correction Factor: 30 mg/dL/unit * Nutritional / Prandial insulin per carb ratio of 1 unit per 9 grams CHO consumed
[2023-06-08] MEDS ORDERED: Nursing to Pharmacy Communication SCH (12:00)
[2023-06-08 12:33] LABS: Hematocrit (blood only) 35.5 % (37.0-47.0); Hemoglobin 11.5 g/dl (12.0-16.0); Mean Corpuscular Hgb Conc 32.4 g/dL (32.0-36.0); Mean Corpuscular Volume 89.6 fL (80.0-100.0); Mean Platelet Volume 12.2 fL (9.4-12.4); Platelet Count 127 K/uL (130-400); RDW Coefficient of Variation 15.9 % (11.5-14.5); RDW Standard Deviation 52.1 fL (36.4-46.3); Red Blood Count 3.96 M/uL (4.20-5.40); White Blood Count 14.88 K/ul (4.8-10.8)
--- NOTE | 2023-06-08 13:25 | Palliative Care Progress Note ---
Date of Service June 08, 2023 Assessment & Plan (1) Palliative care encounter: Plan: Mental status seems somewhat better today. She did have speech evaluation earlier with silent aspiration of thin and mildly thick liquids. She is frequently not alert enough to safely take po. Her daughter tells me that Marylou would not want a feeding tube. She had a feeding tube placed for her after a CVA and Pauline feels that she regrets doing that and would not want one for herself. We have discussed disposition to SNF in [place], initially with skilled care and transition to hospice. At this time I do not think that Marylou would be able to participate in rehab at SNF. Called Pauline to discuss permissive aspiration and transition to hospice but no answer. Spoke to Pauline with update on Marylou's condition today and results of swallowing evaluation. She agrees that Marylou would not do well with rehab. She would prefer that she have comfort focused care at SNF. We discussed concept of permissive aspiration and Pauline would like Marylou to have food and drink following speech recommendations for comfort,knowing that there is a risk for aspiration. Notified case management. Admission and Anticipated Discharge Date Admission Date: May 25, 2023 Subjective Sleeping but arousable. Appears comfortable. Denies pain. Tells me "I'm cold" and "that's better" after blanket placed. Review of Systems Review of Systems: ESAS Pain 0/3 Dyspnea 0/3 Drowsiness 2/3 Physical Exam Constitutional: + ill appearing; no acute distress Respiratory: normal respiratory effort; no labored breathing Skin: warm and dry Neurologic: lethargic but arousable Results & Data Vital Signs (Past 12 Hours) Vital Signs Temp Pulse Resp BP Pulse Ox O2 Del Method 06/08/23 07:26 97.9 F 70 16 144/68 H 95 Room Air PG Care Time/CCT Total # of Minutes Spent Total Time Spent: 30 Total Time Spent with Patient: Total time spent is greater than 50% in coordination of care (as documented) at patient's floor/unit and/or counseling patient: goals of care, family education and support, coordination of care Coding Level of Care Code 71259 SUB INP/OBS CARE 1/25MIN Diagnoses Palliative care encounter Z51.5
--- NOTE | 2023-06-08 21:09 | Hospitalist Progress Note ---
Date of Service June 08, 2023 Assessment & Plan (1) Hemorrhagic stroke: Plan: waxing and waning neurological status prompting repeat CT head on 06/06 continue support hydration with IV fluids Imaging showed improvement of size of hemorrhage however, patient remains lethargic. D/W palliative care: discussion with Pauline, if no improvement tomorrow, will consider transitioning to comfort. approx 2 cm right intraventricular hemorrhagic stroke, family aware, Intravenous scheduled metoprolol to help with A-fib and to control bp, will continue to hold asa, and Xarelto would not restart Xarelto at discharge Past bedside swallowing exam outlook is improved [facility] recommended repeat vascular imaging of head , CT angiography shows the intraventricular hemorrhage seen mildly decreasing. 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 Duration of treatment to be 14-21 days, started on LD 06/09- (3) HTN (hypertension): Plan: -chronic and stable, resume p.o. metoprolol and isosorbide add back valsartan if unable to take p.o. may need to transfer back to telemetry for intravenous beta-mauricio use (4) Lyme disease: Plan: -Found to be Lyme IgG and IgM antibody positive - on ceftriaxone. (5) Atrial fibrillation: Plan: -ECG today showing ventricular paced rhythm, rate controlled with metoprolol convert to tartrate dose 50 twice daily in the evening of 06 04 -Continue to hold Xarelto chronic systolic heart failure, stable (6) Diabetes mellitus type 2 with complications: Plan: -Hold oral agents -Monitor BSG q6h while NPO, goal is 110-160 will hold lantus and just use ssi as patient begins to eat may reinstitute Lantus if needed (7) Hypothyroidism: Plan: -TSH on 05/22 WNL -Continue levothyroxine restarted on the evening of 06/04 Plan waxing and waning attempting for placement at [facility] Admission and Anticipated Discharge Date Admission Date: May 25, 2023 Subjective Patient remains lethargic, but more awake today. Review of Systems Review of Systems: All systems reviewed & are unremarkable except as noted in HPI & below Physical Exam Physical Exam: General: chronically ill-appearing HEENT: Normocephalic, atraumatic Chest/Pulm: No respiratory distress, clear breath sounds throughout Cardiac: RRR, no murmurs noted Abdomen: normoactive bowel sounds, soft, non-tender to palpation throughout Extremities: no edema noted in the BL LE's Neuro: lethargic Results & Data Results & Data Vital Signs (Past 12 Hours) Vital Signs Temp Pulse Resp BP Pulse Ox O2 Del Method 06/08/23 20:00 36.8 C 70 14 179/76 H 96 Room Air 06/08/23 14:50 36.9 C 52 L 15 164/79 H 95 Room Air 06/08/23 14:20 36.5 C 70 17 165/71 H 93 Room Air PG Care Time/CCT Total # of Minutes Spent Total Time Spent with Patient: Total time spent is greater than 50% in coordination of care (as documented) at patient's floor/unit and/or counseling patient: Coding Level of Care Code 22004 SUB INP/OBS CARE 2/35MIN Diagnoses Hemorrhagic stroke I61.9 Generalized weakness R53.1 HTN (hypertension) I10 Lyme disease A69.20 Atrial fibrillation I48.91 Diabetes mellitus type 2 with complications E11.8 Hypothyroidism E03.9
[2023-06-08] MEDS: LORazepam 2 MG/1 ML VIAL IV PRN (21:50)
[2023-06-08] MEDS ORDERED: LORazepam 2 MG/1 ML VIAL IV STA (23:28)
[2023-06-09] MEDS: PLASMA-LYTE A 1,000 ML IV SCH ×2 (06:18→17:08)
[2023-06-09] MEDS: LEVOTHYROXINE SODIUM 50 MCG TABLET PO SCH (06:20)
[2023-06-09 07:33] LABS: BUN Creatinine Ratio 13.8 (10-20); Calcium 10.2 mg/dl (8.6-10.3); Est GFR (African American) 43.6 ml/min; Est GFR (Non-African American) 37.6 ml/min; Hemoglobin 12.1 g/dl (12.0-16.0); Mean Corpuscular Hgb Conc 33.6 g/dL (32.0-36.0); Mean Corpuscular Volume 86.3 fL (80.0-100.0); Mean Platelet Volume 12.3 fL (9.4-12.4); Platelet Count 130 K/uL (130-400); Potassium 4.8 mmol/L (3.5-5.1); RDW Coefficient of Variation 15.9 % (11.5-14.5); RDW Standard Deviation 49.7 fL (36.4-46.3); Red Blood Count 4.17 M/uL (4.20-5.40); White Blood Count 16.74 K/ul (4.8-10.8)
[2023-06-09] MEDS: hydrALAZINE HCL 20 MG/ML VIAL IV PRN (07:38)
[2023-06-09] MEDS: INSULIN ASPART PER UNIT CHARGE SC SCH ×4 (08:53→20:50)
[2023-06-09] MEDS: LIDOCAINE 5% 1 PATCH TD SCH (08:55)
[2023-06-09] MEDS: VALSARTAN 80 MG TAB PO SCH ×2 (08:56→20:07)
[2023-06-09] MEDS: levETIRAcetam 500 MG in 0.9 % SODIUM CHLORIDE 100 ML IV SCH ×2 (08:56→19:57)
[2023-06-09] MEDS: ISOSORBIDE MONO EXTENDED REL 30 MG TABCR PO SCH (08:56)
[2023-06-09] MEDS: cefTRIAXone SODIUM 2,000 MG in DEXTROSE 5% 50 ML IV SCH (12:25)
--- NOTE | 2023-06-09 22:37 | Hospitalist Progress Note ---
Date of Service June 09, 2023 Assessment & Plan (1) Hemorrhagic stroke: Plan: waxing and waning neurological status prompting repeat CT head on 06/06 continue support hydration with IV fluids Imaging showed improvement of size of hemorrhage however, patient remains lethargic. D/W palliative care: discussion with Pauline, if no improvement tomorrow, will consider transitioning to comfort. approx 2 cm right intraventricular hemorrhagic stroke, family aware, Intravenous scheduled metoprolol to help with A-fib and to control bp, will continue to hold asa, and Xarelto would not restart Xarelto at discharge Past bedside swallowing exam outlook is improved [facility] recommended repeat vascular imaging of head , CT angiography shows the intraventricular hemorrhage seen mildly decreasing. 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 Duration of treatment to be 14-21 days, started on LD 06/09- (3) HTN (hypertension): Plan: -chronic and stable, resume p.o. metoprolol and isosorbide add back valsartan if unable to take p.o. may need to transfer back to telemetry for intravenous beta-mauricio use (4) Lyme disease: Plan: -Found to be Lyme IgG and IgM antibody positive - on ceftriaxone. (5) Atrial fibrillation: Plan: -ECG today showing ventricular paced rhythm, rate controlled with metoprolol convert to tartrate dose 50 twice daily in the evening of 06 04 -Continue to hold Xarelto chronic systolic heart failure, stable (6) Diabetes mellitus type 2 with complications: Plan: -Hold oral agents -Monitor BSG q6h while NPO, goal is 110-160 will hold lantus and just use ssi as patient begins to eat may reinstitute Lantus if needed (7) Hypothyroidism: Plan: -TSH on 05/22 WNL -Continue levothyroxine restarted on the evening of 06/04 Plan waxing and waning attempting for placement at [facility] and Anticipated Discharge Date Admission Date: May 25, 2023 Subjective 83 yo female remains lethargic. No new complaints. Review of Systems Review of Systems: All systems reviewed & are unremarkable except as noted in HPI & below Physical Exam Physical Exam: General: chronically ill-appearing HEENT: Normocephalic, atraumatic Chest/Pulm: No respiratory distress, clear breath sounds throughout Cardiac: RRR, no murmurs noted Abdomen: normoactive bowel sounds, soft, non-tender to palpation throughout Extremities: no edema noted in the BL LE's Neuro: lethargic Results & Data Results & Data Vital Signs (Past 12 Hours) Vital Signs Temp Pulse Resp BP Pulse Ox O2 Del Method 06/09/23 20:05 36.8 C 70 14 168/76 H 96 Room Air 06/09/23 15:05 36.4 C L 74 18 178/81 H 96 Room Air PG Care Time/CCT Total # of Minutes Spent Total Time Spent with Patient: Total time spent is greater than 50% in coordination of care (as documented) at patient's floor/unit and/or counseling patient: Coding Level of Care Code 49172 SUB INP/OBS CARE 125MIN Diagnoses Hemorrhagic stroke I61.9 Generalized weakness R53.1 HTN (hypertension) I10 Lyme disease A69.20 Atrial fibrillation I48.91 Diabetes mellitus type 2 with complications E11.8 Hypothyroidism E03.9
[2023-06-10] MEDS: LORazepam 2 MG/1 ML VIAL IV PRN ×3 (01:30→15:17)
[2023-06-10] MEDS: PLASMA-LYTE A 1,000 ML IV SCH ×2 (02:39→12:54)
[2023-06-10] MEDS: LEVOTHYROXINE SODIUM 50 MCG TABLET PO SCH (05:30)
[2023-06-10] MEDS: hydrALAZINE HCL 20 MG/ML VIAL IV PRN ×2 (07:40→15:34)
[2023-06-10 07:46] LABS: Hematocrit (blood only) 34.3 % (37.0-47.0); Mean Corpuscular Hemoglobin 28.3 pg (25.0-34.0); Mean Corpuscular Hgb Conc 32.1 g/dL (32.0-36.0); Mean Corpuscular Volume 88.2 fL (80.0-100.0); Platelet Count 144 K/uL (130-400); RDW Coefficient of Variation 15.7 % (11.5-14.5); RDW Standard Deviation 50.7 fL (36.4-46.3); Red Blood Count 3.89 M/uL (4.20-5.40)
[2023-06-10 08:05] LABS: Albumin Level 3.2 gm/dl (3.4-5.0); BUN Creatinine Ratio 28.9 (10-20); Bilirubin Direct 0.2 mg/dl (0-0.2); Bilirubin,Total 1.4 mg/dl (0.2-1.0); C Reactive Protein 12.64 mg/dl (0-0.5); Calcium 9.7 mg/dl (8.6-10.3); Creatinine Clr Calc Pharmacy 116.9 ml/min; Est GFR (African American) 112.7 ml/min; Est GFR (Non-African American) 97.3 ml/min; Potassium 2.8 mmol/L (3.5-5.1); Total Protein 5.9 gm/dl (6.0-8.3)
[2023-06-10] MEDS: INSULIN ASPART PER UNIT CHARGE SC SCH ×4 (09:03→21:02)
[2023-06-10] MEDS: levETIRAcetam 500 MG in 0.9 % SODIUM CHLORIDE 100 ML IV SCH ×2 (09:53→19:48)
[2023-06-10] MEDS: VALSARTAN 80 MG TAB PO SCH ×3 (09:53→19:54)
[2023-06-10] MEDS: LIDOCAINE 5% 1 PATCH TD SCH (09:54)
[2023-06-10] MEDS: ISOSORBIDE MONO EXTENDED REL 30 MG TABCR PO SCH ×2 (09:54→11:08)
--- NOTE | 2023-06-10 11:59 | Hospitalist Progress Note ---
Date of Service June 10, 2023 Assessment & Plan (1) Hemorrhagic stroke: Plan: waxing and waning neurological status prompting repeat CT head on 06/06 continue support hydration with IV fluids Imaging showed improvement of size of hemorrhage however, patient remains lethargic. D/W palliative care: discussion with Pauline, if no improvement tomorrow, will consider transitioning to comfort. approx 2 cm right intraventricular hemorrhagic stroke, family aware, Intravenous scheduled metoprolol to help with A-fib and to control bp, will continue to hold asa, and Xarelto would not restart Xarelto at discharge Past bedside swallowing exam outlook is improved [facility] recommended repeat vascular imaging of head , CT angiography shows the intraventricular hemorrhage seen mildly decreasing. Atherosclerosis of internal carotid arteries resulting in moderate to severe stenosis of the cavernous clinoid and supraclinoid segments otherwise are more unremarkable otherwise control blood pressure and reverse anticoagulation DNR/DNI Family appears to be working on comfort focused care at a SNF. WIll cut back on IV fluids given her upper extremities appear edematous. 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 Duration of treatment to be 14-21 days, started on LD 06/09- (3) HTN (hypertension): Plan: -chronic and stable, resume p.o. metoprolol and isosorbide add back valsartan if unable to take p.o. may need to transfer back to telemetry for intravenous beta-mauricoi use (4) Lyme disease: Plan: -Found to be Lyme IgG and IgM antibody positive - on ceftriaxone. (5) Atrial fibrillation: Plan: -ECG today showing ventricular paced rhythm, rate controlled with metoprolol convert to tartrate dose 50 twice daily in the evening of 06 04 -Continue to hold Xarelto chronic systolic heart failure, stable (6) Diabetes mellitus type 2 with complications: Plan: -Hold oral agents -Monitor BSG q6h while NPO, goal is 110-160 will hold lantus and just use ssi as patient begins to eat may reinstitute Lantus if needed (7) Hypothyroidism: Plan: -TSH on 05/22 WNL -Continue levothyroxine restarted on the evening of 06/04 Plan waxing and waning attempting for placement at [facility] Admission and Anticipated Discharge Date Admission Date: May 25, 2023 Subjective Patient is lethargic. She was awake most of the night and confused. As per nurse, she was able to verbalize her name. Review of Systems Review of Systems: All systems reviewed & are unremarkable except as noted in HPI & below Physical Exam Physical Exam: General: chronically ill-appearing HEENT: Normocephalic, atraumatic Chest/Pulm: No respiratory distress, clear breath sounds throughout Cardiac: RRR, no murmurs noted Abdomen: normoactive bowel sounds, soft, non-tender to palpation throughout Extremities: no edema noted in the BL LE's Neuro: lethargic Results & Data Results & Data Vital Signs (Past 12 Hours) Vital Signs Temp Pulse Pulse Resp BP Pulse Ox O2 Del Method 06/10/23 07:50 Room Air 06/10/23 10:05 69 153/71 H 06/10/23 07:30 36.8 C 74 20 196/100 H 96 Room Air PG Care Time/CCT Total # of Minutes Spent Total Time Spent with Patient: Total time spent is greater than 50% in coordination of care (as documented) at patient's floor/unit and/or counseling patient: Coding Level of Care Code 31452 SUB INP/OBS CARE 2/35MIN Diagnoses Hemorrhagic stroke I61.9 Generalized weakness R53.1 HTN (hypertension) I10 Lyme disease A69.20 Atrial fibrillation I48.91 Diabetes mellitus type 2 with complications E11.8 Hypothyroidism E03.9
[2023-06-10] MEDS: POTASSIUM CHLORIDE / WTR 10 MEQ/100 ML PLCT IV SCH ×4 (12:37→15:42)
[2023-06-10] MEDS: KETOROLAC TROMETHAMINE 15 MG/ML VIAL IV PRN (15:57)
[2023-06-11] MEDS: LEVOTHYROXINE SODIUM 50 MCG TABLET PO SCH (05:30)
[2023-06-11 07:22] LABS: Hematocrit (blood only) 35.7 % (37.0-47.0); Hemoglobin 11.7 g/dl (12.0-16.0); Mean Corpuscular Hemoglobin 28.7 pg (25.0-34.0); Mean Corpuscular Hgb Conc 32.8 g/dL (32.0-36.0); Mean Corpuscular Volume 87.7 fL (80.0-100.0); Mean Platelet Volume 12.2 fL (9.4-12.4); Platelet Count 153 K/uL (130-400); RDW Coefficient of Variation 15.1 % (11.5-14.5); RDW Standard Deviation 48.8 fL (36.4-46.3); Red Blood Count 4.07 M/uL (4.20-5.40); White Blood Count 10.67 K/ul (4.8-10.8)
[2023-06-11] MEDS: KETOROLAC TROMETHAMINE 15 MG/ML VIAL IV PRN ×3 (07:32→22:47)
[2023-06-11] MEDS: hydrALAZINE HCL 20 MG/ML VIAL IV PRN ×2 (07:32→18:07)
[2023-06-11 07:44] LABS: BUN Creatinine Ratio 30.6 (10-20); Calcium 9.9 mg/dl (8.6-10.3); Creatinine Clr Calc Pharmacy 123.4 ml/min; Est GFR (African American) 114.8 ml/min; Potassium 3.2 mmol/L (3.5-5.1)
[2023-06-11] MEDS: INSULIN ASPART PER UNIT CHARGE SC SCH ×4 (08:39→22:16)
[2023-06-11] MEDS: VALSARTAN 80 MG TAB PO SCH ×2 (08:40→19:55)
[2023-06-11] MEDS: ISOSORBIDE MONO EXTENDED REL 30 MG TABCR PO SCH (08:40)
[2023-06-11] MEDS: LIDOCAINE 5% 1 PATCH TD SCH (08:47)
[2023-06-11] MEDS: levETIRAcetam 500 MG in 0.9 % SODIUM CHLORIDE 100 ML IV SCH ×2 (08:47→20:35)
[2023-06-11] MEDS: PLASMA-LYTE A 1,000 ML IV SCH (09:19)
[2023-06-11] MEDS: POTASSIUM CHLORIDE / WTR 10 MEQ/100 ML PLCT IV SCH ×4 (13:06→17:31)
--- NOTE | 2023-06-11 22:30 | Hospitalist Progress Note ---
Date of Service June 11, 2023 Assessment & Plan (1) Hemorrhagic stroke: Plan: waxing and waning neurological status prompting repeat CT head on 06/06 continue support hydration with IV fluids Imaging showed improvement of size of hemorrhage however, patient remains lethargic. D/W palliative care: discussion with Pauline, if no improvement tomorrow, will consider transitioning to comfort. approx 2 cm right intraventricular hemorrhagic stroke, family aware, Intravenous scheduled metoprolol to help with A-fib and to control bp, will continue to hold asa, and Xarelto would not restart Xarelto at discharge Past bedside swallowing exam outlook is improved [facility] recommended repeat vascular imaging of head , CT angiography shows the intraventricular hemorrhage seen mildly decreasing. Atherosclerosis of internal carotid arteries resulting in moderate to severe stenosis of the cavernous clinoid and supraclinoid segments otherwise are more unremarkable otherwise control blood pressure and reverse anticoagulation DNR/DNI Family appears to be working on comfort focused care at a SNF. WIll cut back on IV fluids given her upper extremities appear edematous. Anticipate discharge within 48 hours. 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 Duration of treatment to be 14-21 days, started on LD 06/09- (3) HTN (hypertension): Plan: -chronic and stable, resume p.o. metoprolol and isosorbide add back valsartan if unable to take p.o. may need to transfer back to telemetry for intravenous beta-mauricio use (4) Lyme disease: Plan: -Found to be Lyme IgG and IgM antibody positive - on ceftriaxone. (5) Atrial fibrillation: Plan: -ECG today showing ventricular paced rhythm, rate controlled with metoprolol convert to tartrate dose 50 twice daily in the evening of 06 04 -Continue to hold Xarelto chronic systolic heart failure, stable (6) Diabetes mellitus type 2 with complications: Plan: -Hold oral agents -Monitor BSG q6h while NPO, goal is 110-160 will hold lantus and just use ssi as patient begins to eat may reinstitute Lantus if needed (7) Hypothyroidism: Plan: -TSH on 05/22 WNL -Continue levothyroxine restarted on the evening of 06/04 Plan waxing and waning attempting for placement at [facility] Admission and Anticipated Discharge Date Admission Date: May 25, 2023 Subjective Patient is lethargic Review of Systems Review of Systems: Unobtainable due to cognitive status Physical Exam Physical Exam: General: chronically ill-appearing HEENT: Normocephalic, atraumatic Chest/Pulm: No respiratory distress, clear breath sounds throughout Cardiac: RRR, no murmurs noted Abdomen: normoactive bowel sounds, soft, non-tender to palpation throughout Extremities: no edema noted in the BL LE's Neuro: lethargic Results & Data Results & Data Vital Signs (Past 12 Hours) Vital Signs Temp Pulse Resp BP Pulse Ox O2 Del Method 06/11/23 21:30 36.6 C 70 18 162/73 H 95 Room Air 06/11/23 19:34 182/70 H 06/11/23 15:39 36.3 C L 70 14 196/91 H 97 Room Air PG Care Time/CCT Total # of Minutes Spent Total Time Spent with Patient: Total time spent is greater than 50% in coordination of care (as documented) at patient's floor/unit and/or counseling patient: Coding Level of Care Code 26624 SUB INP/OBS CARE 2/35MIN Diagnoses Hemorrhagic stroke I61.9 Generalized weakness R53.1 HTN (hypertension) I10 Lyme disease A69.20 Atrial fibrillation I48.91 Diabetes mellitus type 2 with complications E11.8 Hypothyroidism E03.9
[2023-06-11] MEDS: LORazepam 2 MG/1 ML VIAL IV PRN (23:56)
[2023-06-12] MEDS ORDERED: HYDROmorphone INJ 0.5 MG/0.5 ML SYR IV STA ×2 (03:00→17:25)
[2023-06-12] MEDS: PLASMA-LYTE A 1,000 ML IV SCH (05:39)
[2023-06-12] MEDS: LEVOTHYROXINE SODIUM 50 MCG TABLET PO SCH (05:58)
[2023-06-12] MEDS: INSULIN ASPART PER UNIT CHARGE SC SCH ×4 (07:55→20:52)
[2023-06-12] MEDS: levETIRAcetam 500 MG in 0.9 % SODIUM CHLORIDE 100 ML IV SCH ×2 (08:02→20:54)
[2023-06-12] MEDS: LIDOCAINE 5% 1 PATCH TD SCH (08:03)
[2023-06-12] MEDS: VALSARTAN 80 MG TAB PO SCH ×2 (08:03→20:54)
[2023-06-12] MEDS: ISOSORBIDE MONO EXTENDED REL 30 MG TABCR PO SCH (08:03)
[2023-06-12] MEDS: hydrALAZINE HCL 20 MG/ML VIAL IV PRN ×2 (08:04→16:36)
[2023-06-12 08:38] LABS: BUN Creatinine Ratio 27.7 (10-20); Calcium 9.7 mg/dl (8.6-10.3); Creatinine Clr Calc Pharmacy 94.6 ml/min; Est GFR (African American) 105.1 ml/min; Est GFR (Non-African American) 90.7 ml/min; Magnesium 1.7 mg/dl (1.7-2.4); Phosphorus 2.2 mg/dl (2.5-4.9); Potassium 3.3 mmol/L (3.5-5.1)
--- NOTE | 2023-06-12 09:31 | Pharmacy Report ---
Pharmacy Glycemic Sign Off Nt - Date of Service June 12, 2023 - Assessment & Plan ASSESSMENT: * Pharmacy was consulted by Dr Malagon on 05/28/23 for glycemic control and to write orders per [facility] inpatient glycemic control protocol. * Major changes made by pharmacy to antidiabetic regimen include: * Patient's insulin requirements have been steadily declining. Pt has been taken off of basal insulin. * Novolog is now being used for correction only. * Patient has been receiving/requiring 0-3 units of insulin per day for adequate glycemic control * BSGs ranging 80-134 mg/dL over the past 48 hours. * Do not anticipate further changes in patient status that would quickly deteri orate glycemic control (i.e. patient to be NPO for upcoming procedure, steroids tapering, starting tube feedings, etc). * Please see recommendations for outpatient antidiabetic regimen below. PLAN FOR INPATIENT GLYCEMIC CONTROL: No changes needed to current regimen. * No basal insulin is required. As patient transitions to more of a comfort measures only treatment plan, do not anticipate the need to re-initiate basal. * Continue NovoLog per scale ACHS/Q6hrs while NPO * Goal range = 120-160 mg/dl * CF = 30 mg/dl/unit * CR = none at this time -- pt has not been eating much and BSGs have been below goal * Pharmacy is signing off of glycemic consult and will no longer be making adjustments to inpatient regimen. Please feel free to re-consult if needed. Thank you.
[2023-06-12] MEDS: KETOROLAC TROMETHAMINE 15 MG/ML VIAL IV PRN ×2 (14:02→21:27)
[2023-06-12] MEDS ORDERED: GLYCOPYRROLATE 0.2 MG/ML VIAL IV PRN (17:25)
[2023-06-12] MEDS: LORazepam 2 MG/1 ML VIAL IV PRN (21:27)
[2023-06-12] MEDS ORDERED: NITROGLYCERIN SL 0.4 MG/TAB TAB SL STA ×2 (21:29→22:25)
--- NOTE | 2023-06-12 22:35 | Hospitalist Progress Note ---
Date of Service June 12, 2023 Assessment & Plan (1) Hemorrhagic stroke: Plan: waxing and waning neurological status prompting repeat CT head on 06/06 continue support hydration with IV fluids Imaging showed improvement of size of hemorrhage however, patient remains lethargic. D/W palliative care: discussion with Pauline, if no improvement tomorrow, will consider transitioning to comfort. approx 2 cm right intraventricular hemorrhagic stroke, family aware, Intravenous scheduled metoprolol to help with A-fib and to control bp, will continue to hold asa, and Xarelto would not restart Xarelto at discharge Past bedside swallowing exam outlook is improved Charu neurosurgery recommended repeat vascular imaging of head , CT angiography shows the intraventricular hemorrhage seen mildly decreasing. Atherosclerosis of internal carotid arteries resulting in moderate to severe stenosis of the cavernous clinoid and supraclinoid segments otherwise are more unremarkable otherwise control blood pressure and reverse anticoagulation DNR/DNI Family appears to be working on comfort focused care at a SNF. Will cut back on IV fluids given her upper extremities appear edematous. Anticipate discharge within 48 hours. 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 Duration of treatment to be 14-21 days, started on LD 06/09- (3) HTN (hypertension): Plan: -chronic and stable, resume p.o. metoprolol and isosorbide add back valsartan if unable to take p.o. may need to transfer back to telemetry for intravenous beta-mauricio use (4) Lyme disease: Plan: -Found to be Lyme IgG and IgM antibody positive - on ceftriaxone. (5) Atrial fibrillation: Plan: -ECG today showing ventricular paced rhythm, rate controlled with metoprolol convert to tartrate dose 50 twice daily in the evening of 06 04 -Continue to hold Xarelto chronic systolic heart failure, stable (6) Diabetes mellitus type 2 with complications: Plan: -Hold oral agents -Monitor BSG q6h while NPO, goal is 110-160 will hold lantus and just use ssi as patient begins to eat may reinstitute Lantus if needed (7) Hypothyroidism: Plan: -TSH on 05/22 WNL -Continue levothyroxine restarted on the evening of 06/04 Plan waxing and waning attempting for placement at [facility] Admission and Anticipated Discharge Date Admission Date: May 25, 2023 Subjective Patient appears to be comfortable after receiving pain medicine. Review of Systems Review of Systems: All systems reviewed & are unremarkable except as noted in HPI & below Physical Exam Physical Exam: General: chronically ill-appearing HEENT: Normocephalic, atraumatic Chest/Pulm: No respiratory distress, clear breath sounds throughout Cardiac: RRR, no murmurs noted Abdomen: normoactive bowel sounds, soft, non-tender to palpation throughout Extremities: no edema noted in the BL LE's Neuro: lethargic Results & Data Results & Data Vital Signs (Past 12 Hours) Vital Signs Temp Pulse Pulse Resp BP Pulse Ox O2 Del Method 06/12/23 22:16 191/77 H 06/12/23 21:20 36.5 C 74 18 201/79 H 97 Room Air 06/12/23 17:48 175/74 H 06/12/23 14:21 36.7 C 70 18 188/72 H 98 Room Air PG Care Time/CCT Total # of Minutes Spent Total Time Spent with Patient: Total time spent is greater than 50% in coordination of care (as documented) at patient's floor/unit and/or counseling patient: Coding Level of Care Code 77514 SUB INP/OBS CARE 2/35MIN Diagnoses Hemorrhagic stroke I61.9 Generalized weakness R53.1 HTN (hypertension) I10 Lyme disease A69.20 Atrial fibrillation I48.91 Diabetes mellitus type 2 with complications E11.8 Hypothyroidism E03.9
[2023-06-12] MEDS ORDERED: hydrALAZINE HCL 20 MG/ML VIAL IV ONE (23:00)
[2023-06-13] MEDS ORDERED: HYDROmorphone INJ 0.5 MG/0.5 ML SYR IV STA (00:32)
[2023-06-13] MEDS: PLASMA-LYTE A 1,000 ML IV SCH ×2 (00:37→20:40)
[2023-06-13] MEDS: LORazepam 2 MG/1 ML VIAL IV PRN ×2 (04:20→17:30)
[2023-06-13] MEDS: LEVOTHYROXINE SODIUM 50 MCG TABLET PO SCH (05:31)
[2023-06-13] MEDS: hydrALAZINE HCL 20 MG/ML VIAL IV PRN ×3 (06:37→21:54)
[2023-06-13] MEDS: INSULIN ASPART PER UNIT CHARGE SC SCH ×4 (07:48→21:31)
[2023-06-13] MEDS: KETOROLAC TROMETHAMINE 15 MG/ML VIAL IV PRN ×2 (07:49→14:27)
[2023-06-13] MEDS: VALSARTAN 80 MG TAB PO SCH ×2 (07:49→20:43)
[2023-06-13] MEDS: ISOSORBIDE MONO EXTENDED REL 30 MG TABCR PO SCH (07:49)
[2023-06-13] MEDS: levETIRAcetam 500 MG in 0.9 % SODIUM CHLORIDE 100 ML IV SCH ×2 (08:00→20:32)
[2023-06-13] MEDS: LIDOCAINE 5% 1 PATCH TD SCH (08:01)
[2023-06-13 13:27] LABS: Creatinine Clr Calc Pharmacy 134.7 ml/min; Est GFR (African American) 118.1 ml/min; Est GFR (Non-African American) 101.9 ml/min
[2023-06-13] MEDS: DEXTROSE 50% 50 ML SYRINGE IV PRN (17:31)
[2023-06-13] MEDS ORDERED: MoRPHine SULFATE 2 MG/ML CARP IV STA (18:29)
[2023-06-13] MEDS ORDERED: hydrALAZINE HCL 20 MG/ML VIAL IV STA (21:41)
--- NOTE | 2023-06-13 21:45 | Communication Note ---
Date of Service: June 13, 2023 Notified by nursing about hypertensive emergency (211/). Pt last received prn hydralazine at 14:27. Considered labetalol but pt. on non-telemetry floor. Ordered IV hydralazine 10 mg stat. Repeat BP was 181/81. 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
[2023-06-14] MEDS: LORazepam 2 MG/1 ML VIAL IV PRN ×2 (00:12→14:44)
[2023-06-14] MEDS ORDERED: HYDROmorphone INJ 0.5 MG/0.5 ML SYR IV STA (01:54)
[2023-06-14] MEDS: LEVOTHYROXINE SODIUM 50 MCG TABLET PO SCH (02:56)
--- NOTE | 2023-06-14 06:11 | Hospitalist Progress Note ---
Date of Service June 13, 2023 Assessment & Plan (1) Hemorrhagic stroke: Plan: waxing and waning neurological status prompting repeat CT head on 06/06 continue support hydration with IV fluids Imaging showed improvement of size of hemorrhage however, patient remains lethargic. D/W palliative care: discussion with Pauline Patient is pending placement to SNF for Hospice. Patient requires intemittent dose of morphine. approx 2 cm right intraventricular hemorrhagic stroke, family aware, Intravenous scheduled metoprolol to help with A-fib and to control bp, will continue to hold asa, and Xarelto would not restart Xarelto at discharge Past bedside swallowing exam outlook is improved Charu neurosurgery recommended repeat vascular imaging of head , CT angiography shows the intraventricular hemorrhage seen mildly decreasing. Atherosclerosis of internal carotid arteries resulting in moderate to severe stenosis of the cavernous clinoid and supraclinoid segments otherwise are more unremarkable otherwise control blood pressure and reverse anticoagulation DNR/DNI Family appears to be working on comfort focused care at a SNF. decreased IV fluids @ 50ml/hr given her upper extremities appear edematous. Anticipate discharge within 48 hours. 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 Duration of treatment to be 14 days. Completed 15 days of treatment of ceftriaxone. (3) HTN (hypertension): Plan: -chronic and stable, resume p.o. metoprolol and isosorbide add back valsartan if unable to take p.o. may need to transfer back to telemetry for intravenous beta-mauricio use (4) Lyme disease: Plan: -Found to be Lyme IgG and IgM antibody positive - completed course of ceftriaxone.ceftriaxone. (5) Atrial fibrillation: Plan: -ECG today showing ventricular paced rhythm, rate controlled with metoprolol convert to tartrate dose 50 twice daily in the evening of 8 7 -Continue to hold Xarelto chronic systolic heart failure, stable (6) Diabetes mellitus type 2 with complications: Plan: -Hold oral agents -Monitor BSG q6h while NPO, goal is 110-160 will hold lantus and just use ssi as patient begins to eat may reinstitute Lantus if needed (7) Hypothyroidism: Plan: -TSH on 05/22 WNL -Continue levothyroxine restarted on the evening of 06/04 Plan waxing and waning attempting for placement at [facility] Admission and Anticipated Discharge Date Admission Date: May 25, 2023 Subjective Patient is lethargic but appears comfortable. Review of Systems Review of Systems: Unobtainable due to cognitive status Physical Exam Physical Exam: General: chronically ill-appearing HEENT: Normocephalic, atraumatic Chest/Pulm: No respiratory distress Cardiac: RRR, no murmurs noted Extremities: no edema noted in the BL LE's Neuro: lethargic Results & Data Results & Data Vital Signs (Past 12 Hours) Vital Signs Temp Pulse Resp BP BP Pulse Ox O2 Del Method 06/14/23 05:45 69 17 181/81 H 06/14/23 02:36 Room Air 06/14/23 01:50 16 06/14/23 01:45 194/85 H 06/13/23 22:07 202/80 H 06/13/23 21:59 71 20 184/92 H 98 Room Air 06/13/23 21:24 36.2 C L 68 18 211/98 H 98 Room Air PG Care Time/CCT Total # of Minutes Spent Total Time Spent with Patient: Total time spent is greater than 50% in coordination of care (as documented) at patient's floor/unit and/or counseling patient: Coding Level of Care Code 98454 SUB INP/OBS CARE 2/35MIN Diagnoses Hemorrhagic stroke I61.9 Generalized weakness R53.1 HTN (hypertension) I10 Lyme disease A69.20 Atrial fibrillation I48.91 Diabetes mellitus type 2 with complications E11.8 Hypothyroidism E03.9
[2023-06-14] MEDS ORDERED: MoRPHine SULFATE 10 MG/0.5 ML UDP PO PRN (08:26)
[2023-06-14] MEDS ORDERED: LORazepam 2 MG/1 ML VIAL IV PRN ×2 (08:28→12:03)
[2023-06-14] MEDS ORDERED: MoRPHine SULFATE 2 MG/ML CARP IV PRN ×2 (08:28→12:04)
--- NOTE | 2023-06-14 08:33 | Communication Note ---
Date of Service: June 14, 2023 Brief Pall Med Note paged by Nika DESAI requesting modification of comfort meds reviewed MAR and modified meds for EOL sx mgt. notes indicate pt is awaiting dc to SNF with hospice If a comfort plan of care is agreed upon, we recommend the following: Stop monitors, vitals, labs, diagnostics/imaging Comfort assessments/respirations Stop all non essential/non comfort meds including but not limited to vitamins, supplements, intermediate preventives (ex. Lipid lowering medications) Haldol Intensol 0.5mg po or under the tongue q4h prn agitation, nausea or confusion Ativan Intensol 0.5mg PO or under the tongue q6h prn anxiety, insomnia Oxycodone Intensol liquid 5mg PO q2h prn pain, dyspnea, air hunger; titrate to effect; this can be given PO or under the tongue. Robinul elixir 0.5mg PO q4h prn moist secretions - avoid trans derm scop unless you are using Robinul very frequently as this can lead to excessive oral dryness and cause discomfort. Allow pt to take PO as tolerated for pleasure and comfort; no dietary restriction or limitations. Keep an oscillating fan available to provide circulating air movement across the face to assist in the relief of dyspnea. Additionally, the following Comfort Care Discharge Summary & Plan of Care For Retirement/SNF/[facility] Comfort plan of care parameters: 1. Patient/Family want hospice added to their care. 2. NO rehab/PT/OT 3. Strictly End of Life care only 4. NO escalation of care: do not increase oxygen, escalate therapies, etc. The focus is on comfort through end of life, assure this is accomplished with aggressive symptom management (i.e. relief of dyspnea, pain, etc.) 5. NO return to hospital 6. NO labs, imaging, surgery 7. Oral intake as desired for comfort and pleasure: NO dietary restriction 8. If difficulty urinating/commode/bedpan, ok to place Chirinos catheter for comfort/hygiene/skin protection AND/OR Continue Chirinos catheter for comfort/hygiene/skin protection 9. NO: calorie counts, artificial nutrition, feeding tubes or IV fluids Medications to continue are noted on discharge summary. Provider to contact if any questions about comfort plan of care: Hospice Building Trades Teacher or designee Unsure re status of SNF placement and defer this to patient was not seen, no charge submitted; I updated nursing and primary team I am in outpatient clinic today. Thank you for allowing us to participate in the ongoing care of this patient. Please don't hesitate to call or page with any additional concerns. Dr. Leeanna Brock DNP Director, Palliative Care
[2023-06-14] MEDS: INSULIN ASPART PER UNIT CHARGE SC SCH ×2 (08:43→12:38)
[2023-06-14] MEDS: levETIRAcetam 500 MG in 0.9 % SODIUM CHLORIDE 100 ML IV SCH (08:49)
[2023-06-14] MEDS: LIDOCAINE 5% 1 PATCH TD SCH (08:49)
[2023-06-14] MEDS: VALSARTAN 80 MG TAB PO SCH (08:49)
[2023-06-14] MEDS: ISOSORBIDE MONO EXTENDED REL 30 MG TABCR PO SCH (08:49)
--- NOTE | 2023-06-14 09:15 | Hospitalist Progress Note ---
Date of Service June 14, 2023 Assessment & Plan (1) Hemorrhagic stroke: Plan: waxing and waning neurological status , approx 2 cm right intraventricular hemorrhagic stroke, Imaging showed improvement of size of hemorrhage however, patient remains orquidea rgic. 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 Completed 15 days of treatment of ceftriaxone. (3) HTN (hypertension): Plan: -chronic holding home po meds (4) Lyme disease: Plan: -Found to be Lyme IgG and IgM antibody positive - completed course of ceftriaxone.ceftriaxone. (5) Atrial fibrillation: Plan: -ECG showing ventricular paced rhythm, rate controlled with metoprolol chronic systolic heart failure, stable (6) Diabetes mellitus type 2 with complications: Plan: -Hold oral agents (7) Hypothyroidism: Plan: -TSH on 05/22 WNL -Continue levothyroxine restarted on the evening of 06/04 Plan transition to complete comfort care am 06/14/23 Admission and Anticipated Discharge Date Admission Date: May 25, 2023 Subjective patient was not responsive personally discussed case with palliative care. Palliative care to transition patient to full comfort after discussion with family on 06/14/2023 fully to sternal rub but then went back to sleep with sonorous respirations Physical Exam Physical Exam: patient not responsive appears comfortable at this time transition to comfort measures only Results & Data Results & Data Vital Signs (Past 12 Hours) Vital Signs Temp Pulse Resp BP BP Pulse Ox O2 Del Method 06/14/23 06:53 97.7 F 70 16 199/78 H 94 Room Air 06/14/23 06:44 95 Room Air 06/14/23 05:45 69 17 181/81 H 06/14/23 02:36 Room Air 06/14/23 01:50 16 06/14/23 01:45 194/85 H 06/13/23 22:07 202/80 H 06/13/23 21:59 71 20 184/92 H 98 Room Air 06/13/23 21:24 97.2 F L 68 18 211/98 H 98 Room Air PG Care Time/CCT Total # of Minutes Spent Total Time Spent with Patient: Total time spent is greater than 50% in coordination of care (as documented) at patient's floor/unit and/or counseling patient: Coding Level of Care Code 90981 SUB INP/OBS CARE 2/35MIN Diagnoses Hemorrhagic stroke I61.9 Generalized weakness R53.1 HTN (hypertension) I10 Lyme disease A69.20 Atrial fibrillation I48.91 Diabetes mellitus type 2 with complications E11.8 Hypothyroidism E03.9
--- NOTE | 2023-06-14 12:25 | Palliative Care Progress Note ---
Date of Service June 14, 2023 Assessment & Plan (1) Generalized weakness: Plan: bran hemorrage, EOL care patient transitioning to active dying (2) Altered mental status: (3) Unconscious: (4) Palliative care by specialist: Plan: Met with pt wojciech Quintana via phone - reviewed Palliative Medicine, a subspecialty that provides specialized medical care for people living with a serious illness by offering a focus on quality of life. Palliative Medicine is often conflated with hospice: I advised patient/family that Palliative and hospice can be partners but we are not the same. It is important to understand the difference so that we may be informed, and not afraid. Palliative Medicine works to improve QOL through reduction of symptom burden/more control over their illness, for both the patient and family. Palliative medicine clinicians are board certified, specially-trained and another member of the patient's medical care team. We often provide an extra layer of support because our care is based on the needs of the patient, not the prognosis; as such, it's appropriate at any age/advancing stage of a serious illness and can be provided along with curative treatment. Palliative Medicine clinicians are also trained in advanced communication methodologies, to facilitate complex discussions about advanced illness planning, which are needed to help assure that the treatment choices match the patient's goals, aka delivering Goal Concordant care. Finally, we discussed that hospice is a visiting nurse service that focuses on care delivered at the very end of life for patients with terminal illness, with life expectancy less than 6 month. (5) Discussion about advance care planning held with family member: Plan: ACP discussion x 30min Spoke with Pauline and by phone. Pt declining. Increasingly lethargic, unable to take PO, blood sugars dropping/no need to keep testing. We spoke about comfort care options moving forward. I reviewed changes pt experience at the end of life: Discussed changes pt may move through in the dying process including but not limited to sleeping more, disorientation when awake, restlessness, diminished senses/inability to respond to stimulus although ability to be aware of them remains intact longer, changes in body temperatures, skin changes/mottling/cyanosis, respiratory pattern changes, oral secretions. Family verbalized understanding. The goal is to assure a peaceful . We agreed to MANAGER FLIGHT, stop all non essential and non comfort meds. Will d/c IVF as these are going to add to resp symptoms at EOL. Will emily mouth swabs to moisten oral mucosa for comfort. These can be dipped in patient's favorite drinks as well for comfort and pleasure, but less clear if pt will be able to suck on them at this later stage of illness. I reiterated and Pauline verbalized understanding and and agreement with my assessment that pt is transitioning to an active dying process. family has a preferred SNF close to their home in [place], but bed will not be available for a few days. Pauline and I spoke about how seeing pt begin to decline now might mean she has a more rapid decline and transfer may not be safe. Pauline states in that case she would be ok with pt dying here at [facility] as transport would not be safe/pt could en route. Pauline and expressed understanding of pt condition and the terminal nature of change at this junction,. All in agreement for MANAGER FLIGHT. Plan See ACP discussion above Move to MANAGER FLIGHT orders written All non comfort, non essentials meds and interventions are stopped. likely short anticipated survival of days to a week or so. She may this admission or by the time a bed is available at their SNF in [place] she will not be stable or safe for transport. I have updated nursing and Dr Vargas. TS 55min 30 in ACP 10 min chart review 15 min complex EOL care coordination--> d/w teams Thank you for allowing us to participate in the ongoing care of this patient. Please don't hesitate to call or page with any additional concerns. Dr. Leeanna Brock DNP Director, Palliative Care Admission and Anticipated Discharge Date Admission Date: May 25, 2023 Subjective pt declining nursing reports more moaning and grimacing meds modified earlier today she is not taking PO BSG with low #s multiple evaluations/discussions with team and call to family Review of Systems Review of Systems: Unobtainable due to reduced consciousness Physical Exam Physical Exam: lethargic weak appearing unable to interact with me or follow commands pale, warm rr variable, no apnea noted, rhonchi/crackles mild to moderate+ irreg HR generalized weakness Results & Data Vital Signs (Past 12 Hours) Vital Signs Temp Pulse Resp BP Pulse Ox O2 Del Method 06/14/23 08:15 Room Air 06/14/23 06:53 36.5 C 70 16 199/78 H 94 Room Air 06/14/23 06:44 95 Room Air 06/14/23 05:45 69 17 181/81 H 06/14/23 02:36 Room Air 06/14/23 01:50 16 06/14/23 01:45 194/85 H Laboratory Results reviewed Diagnostic Findings reviewed PG Care Time/CCT Total # of Minutes Spent Total Time Spent: 55 Total Time Spent with Patient: Total time spent is greater than 50% in coordination of care (as documented) at patient's floor/unit and/or counseling patient: Advanced Care Planning 41429 Advanced Care Planning 30 Min [place] [address] SUB INP/OBS CARE 3/50MIN Patient Type Established History Comprehensive Exam Expanded Problem Focused Medical Decision Making High Complexity Diagnoses Generalized weakness R53.1 Altered mental status R41.82 Unconscious R40.20 Palliative care by specialist Z51.5 Discussion about advance care planning held with family member Z71.0 Additional Codes Advanced Care Planning - 13368 Advanced Care Planning 30 Min: 47982 Advanced Care Planning 30 Min ([id number])
[2023-06-14] MEDS: MoRPHine SULFATE 2 MG/ML CARP IV PRN (18:42)
[2023-06-15] MEDS: MoRPHine SULFATE 2 MG/ML CARP IV PRN ×4 (00:06→22:49)
[2023-06-15] MEDS: LIDOCAINE 5% 1 PATCH TD SCH (09:05)
[2023-06-15] MEDS: LORazepam 2 MG/1 ML VIAL IV PRN ×2 (09:25→20:10)
--- NOTE | 2023-06-15 18:12 | Hospitalist Progress Note ---
Date of Service June 15, 2023 Assessment & Plan (1) Hemorrhagic stroke: Plan: waxing and waning neurological status , approx 2 cm right intraventricular hemorrhagic stroke, Imaging showed improvement of size of hemorrhage however, patient remains orquidea rgic. 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 Completed 15 days of treatment of ceftriaxone. (3) HTN (hypertension): Plan: -hold all meds (4) Lyme disease: Plan: -Found to be Lyme IgG and IgM antibody positive - completed course of ceftriaxone. (5) Atrial fibrillation: Plan: -ECG showing ventricular paced rhythm (6) Diabetes mellitus type 2 with complications: Plan: -Hold oral agents (7) Hypothyroidism: Plan: -TSH on 05/22 WNL - Plan transition to complete comfort care am 06/14/23 Admission and Anticipated Discharge Date Admission Date: May 25, 2023 Subjective patient was not responsive transitioned patient to full comfort after discussion with family on 06/14/2023 Physical Exam Physical Exam: patient not responsive appears comfortable at this time transition to comfort measures only Results & Data Results & Data Vital Signs (Past 12 Hours) Vital Signs O2 Del Method 06/15/23 08:25 Room Air PG Care Time/CCT Total # of Minutes Spent Total Time Spent with Patient: Total time spent is greater than 50% in coordination of care (as documented) at patient's floor/unit and/or counseling patient: Coding Level of Care Code 66541 SUB INP/OBS CARE 2/35MIN Diagnoses Hemorrhagic stroke I61.9 Generalized weakness R53.1 HTN (hypertension) I10 Lyme disease A69.20 Atrial fibrillation I48.91 Diabetes mellitus type 2 with complications E11.8 Hypothyroidism E03.9
[2023-06-15] MEDS: GLYCOPYRROLATE 0.2 MG/ML VIAL IV PRN (20:24)
[2023-06-16] MEDS: LIDOCAINE 5% 1 PATCH TD SCH (08:40)
[2023-06-16] MEDS: MoRPHine SULFATE 2 MG/ML CARP IV PRN (10:12)
[2023-06-16] MEDS: GLYCOPYRROLATE 0.2 MG/ML VIAL IV PRN (11:49)
[2023-06-16] MEDS: LORazepam 2 MG/1 ML VIAL IV PRN (11:49)
--- NOTE | 2023-06-16 17:24 | Hospitalist Progress Note ---
Date of Service June 16, 2023 Assessment & Plan (1) Hemorrhagic stroke: Plan: patient is transition to comfort care status on 14 June after discussion with with the family by the palliative care team previously the patient had waxing and waning neurological status after suffering an approx 2 cm right intraventricular hemorrhagic stroke, with the baseline treatment for Lyme meningitis patient however has surprisingly hung on although not responsive without significant support over the last 48 hours she appears to be comfortable Ordered glycopyrrolate on 06/12 Ordered one dose of hydromophone 0.25mg on 06/12 Ordered on dose of morphine 1 mg IV on 06/13 below notation is of previous hospital records (2) Generalized weakness: Plan: 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 Completed 15 days of treatment of ceftriaxone. (3) HTN (hypertension): Plan: -hold all meds (4) Lyme disease: Plan: -Found to be Lyme IgG and IgM antibody positive - completed course of ceftriaxone. (5) Atrial fibrillation: Plan: -ECG showing ventricular paced rhythm (6) Diabetes mellitus type 2 with complications: Plan: -Hold oral agents (7) Hypothyroidism: Plan: -TSH on 05/22 WNL - Plan transition to complete comfort care am 06/14/23 Admission and Anticipated Discharge Date Admission Date: May 25, 2023 Subjective patient was not responsive, still not with significant distress transitioned patient to full comfort after discussion with family on 06/14/2023 Physical Exam Physical Exam: patient not responsive appears comfortable at this time transition to comfort measures only Results & Data Results & Data Vital Signs (Past 12 Hours) Vital Signs O2 Del Method 06/16/23 08:30 Room Air PG Care Time/CCT Total # of Minutes Spent Total Time Spent with Patient: Total time spent is greater than 50% in coordination of care (as documented) at patient's floor/unit and/or counseling patient: Coding Level of Care Code 50665 SUB INP/OBS CARE 11/22MIN Diagnoses Hemorrhagic stroke I61.9 Generalized weakness R53.1 HTN (hypertension) I10 Lyme disease A69.20 Atrial fibrillation I48.91 Diabetes mellitus type 2 with complications E11.8 Hypothyroidism E03.9
[2023-06-17] MEDS: LIDOCAINE 5% 1 PATCH TD SCH (07:18)
[2023-06-17] MEDS: MoRPHine SULFATE 2 MG/ML CARP IV PRN ×2 (11:24→16:57)
--- NOTE | 2023-06-17 16:21 | Hospitalist Progress Note ---
Date of Service June 17, 2023 Assessment & Plan (1) Hemorrhagic stroke: Plan: patient is transition to comfort care status on 14 June after discussion with with the family by the palliative care team previously the patient had waxing and waning neurological status after suffering an approx 2 cm right intraventricular hemorrhagic stroke, with the baseline treatment for Lyme meningitis patient however has surprisingly hung on although not responsive without significant support over the last 72 hours she appears to be comfortable Ordered glycopyrrolate on 06/12 Ordered one dose of hydromophone 0.25mg on 06/12 Ordered on dose of morphine 1 mg IV on 06/13 below notation is of previous hospital records (2) Generalized weakness: Plan: 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 Completed 15 days of treatment of ceftriaxone. (3) HTN (hypertension): Plan: -hold all meds (4) Lyme disease: Plan: -Found to be Lyme IgG and IgM antibody positive - completed course of ceftriaxone. (5) Atrial fibrillation: Plan: -ECG showing ventricular paced rhythm (6) Diabetes mellitus type 2 with complications: Plan: -Hold oral agents (7) Hypothyroidism: Plan: -TSH on 05/22 WNL - Plan transition to complete comfort care am 06/14/23 Admission and Anticipated Discharge Date Admission Date: May 25, 2023 Subjective patient was not responsive, still not with significant distress transitioned patient to full comfort after discussion with family on 06/14/2023 Physical Exam Physical Exam: patient not responsive appears comfortable at this time transition to comfort measures only Results & Data Results & Data Vital Signs (Past 12 Hours) Vital Signs O2 Del Method 06/17/23 08:15 Room Air PG Care Time/CCT Total # of Minutes Spent Total Time Spent with Patient: Total time spent is greater than 50% in coordination of care (as documented) at patient's floor/unit and/or counseling patient: Coding Level of Care Code 58675 SUB INP/OBS CARE 2/35MIN Diagnoses Hemorrhagic stroke I61.9 Generalized weakness R53.1 HTN (hypertension) I10 Lyme disease A69.20 Atrial fibrillation I48.91 Diabetes mellitus type 2 with complications E11.8 Hypothyroidism E03.9
[2023-06-18] MEDS: LORazepam 2 MG/1 ML VIAL IV PRN (00:56)
[2023-06-18] MEDS: MoRPHine SULFATE 2 MG/ML CARP IV PRN ×4 (13:38→22:08)
--- NOTE | 2023-06-18 15:37 | Palliative Care Progress Note ---
Date of Service June 18, 2023 Assessment & Plan (1) Dyspnea and respiratory abnormalities: Plan: prn meds as ordered for resp changes apneas of 25 sec noted today on my assessment (2) Altered mental status: Plan: d/t hemorragi stroke, pt on comfort measures (3) Encounter for end of life care: Plan: Will ask cardiology to deactivate pacer at EOL: Pacemaker Deactivation is indicated in patients with irreversible cognitive failure, where continued pacemaker activity is not meeting the goals of care, i.e., EOL comfort care. Will note that it is rare disabling a pacemaker results in any sort of king/accelerated . because few patients are 100% pacemaker dependant, richardson during the period of imminent where tachycardia is the most common rhythm. (Cara R, Brad DL, Denia VILLA, et al. HRS Expert Consensus Statement on the Management of Cardiovascular Implantable Electronic Devices (CIEDs) in patients nearing end of life or requesting withdrawal of therapy. Heart Rhythm. 2010;7(7):0051-9499. doi:10.1016/j.hrthm.2010.04.033) (4) Generalized weakness: (5) Intraventricular hemorrhage: (6) Hemorrhagic stroke: (7) Palliative care by specialist: Plan * comfort care underway * deactivate pacer: primary team requested * use prn's as ordered for resp effort and tachycardia which are both symptoms of discomfort and distress * Apneas noted today. She is moving into a more active dying process. Anticipated survival may be days. * Reviewed plan of care w/primary team and nursing * TS 60min Thank you for allowing us to participate in the ongoing care of this patient. Please don't hesitate to call or page with any additional concerns. Dr. Leeanna Brock DNP Director, Palliative Care Admission and Anticipated Discharge Date Admission Date: May 25, 2023 Subjective Marylou remains on comfort care she is supine in bed at time of my visit mild resp effort no gross distress did not respond to voice or tactile hands drawn in towards center of body no family present Review of Systems Review of Systems: Unobtainable due to reduced consciousness Physical Exam Physical Exam: elderly female resting in bed does not respond to verbal or tactile resp effort sl increased with noted apneas x 25sec twice during my assessment lungs diminished, few scatt rhonchi s1s2, tachy, +jugular vein pulsation at sternal notch abd soft,BS diminished extremities with +1 edema cool to touch BLE, mild mottling Results & Data Vital Signs (Past 12 Hours) Vital Signs O2 Del Method 06/18/23 11:28 Room Air Laboratory Results n/a Diagnostic Findings n/a PG Care Time/CCT Total # of Minutes Spent Total Time Spent: 60 Total Time Spent with Patient: Total time spent is greater than 50% in coordination of care (as documented) at patient's floor/unit and/or counseling patient: Coding [place] [address] SUB INP/OBS CARE 3/50MIN Patient Type Established Medical Decision Making High Complexity Diagnoses Dyspnea and respiratory abnormalities R06.00; R06.89 Altered mental status R41.82 Encounter for end of life care Z51.5 Generalized weakness R53.1 Intraventricular hemorrhage I61.5 Hemorrhagic stroke I61.9 Palliative care by specialist Z51.5
--- NOTE | 2023-06-18 17:23 | Hospitalist Progress Note ---
Date of Service June 18, 2023 Assessment & Plan (1) Hemorrhagic stroke: Plan: patient is transition to comfort care status on 14 June after discussion with with the family by the palliative care team previously the patient had waxing and waning neurological status after suffering an approx 2 cm right intraventricular hemorrhagic stroke, with the baseline treatment for Lyme meningitis patient however has surprisingly hung on although not responsive without significant support over the last 72 hours she appears to be comfortable Ordered glycopyrrolate on 06/12 Ordered one dose of hydromophone 0.25mg on 06/12 Ordered on dose of morphine 1 mg IV on 06/13 below notation is of previous hospital records (2) Generalized weakness: Plan: 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 Completed 15 days of treatment of ceftriaxone. (3) HTN (hypertension): Plan: -hold all meds (4) Lyme disease: Plan: -Found to be Lyme IgG and IgM antibody positive - completed course of ceftriaxone. (5) Atrial fibrillation: Plan: -ECG showing ventricular paced rhythm (6) Diabetes mellitus type 2 with complications: Plan: -Hold oral agents (7) Hypothyroidism: Plan: -TSH on 05/22 WNL - Plan transition to complete comfort care am 06/14/23 Admission and Anticipated Discharge Date Admission Date: May 25, 2023 Subjective Patient is comfortable she is not response of having occasional apneic episodes did have EP turn off ICD portion of pacemaker Physical Exam Physical Exam: patient not responsive appears comfortable at this time transition to comfort measures only Results & Data Results & Data Vital Signs (Past 12 Hours) Vital Signs O2 Del Method 06/18/23 11:28 Room Air PG Care Time/CCT Total # of Minutes Spent Total Time Spent with Patient: Total time spent is greater than 50% in coordination of care (as documented) at patient's floor/unit and/or counseling patient: Coding Level of Care Code 93011 SUB INP/OBS CARE 11/22MIN Diagnoses Hemorrhagic stroke I61.9 Generalized weakness R53.1 HTN (hypertension) I10 Lyme disease A69.20 Atrial fibrillation I48.91 Diabetes mellitus type 2 with complications E11.8 Hypothyroidism E03.9
[2023-06-19] MEDS: MoRPHine SULFATE 2 MG/ML CARP IV PRN ×3 (00:49→12:20)
--- NOTE | 2023-06-19 17:53 | Discharge Summary ---
Date of Service June 19, 2023 Admission HPI Per Admitting Provider Marylou is an 83-year-old female with past medical history of CAD, HFpEF, cardiomyopathy s/o BiV ICD, A. fib s/p ablation still on Xarelto, pulmonary hypertension, hypercholesterolemia, DM2, stroke, hypothyroidism and progressive focal motor weakness, ataxia, and dysarthria over the past 2 years who presented to the [facility] ED on 05/24 due to increased generalized weakness and back pain. In the ED the patient was initially found to be hypertensive at 202/97 with improvement to 175/87 without intervention; she has otherwise been stable. Labs in the ED today are significant for a leukocytosis of 11 with left shift of 8, INR of 1.2, glucose of 108, total bili of 1.4, initial high sen trop of 16, and negative UA. Chest xray was read as "1. No acute cardiopulmonary findings. 2. Stable cardiomegaly without evidence for pulmonary edema. 3. Stable elevation of the left hemidiaphragm with left basilar opacity suggestive of atelectasis.". Prior to admission the patient was given 1L NSS. Of Note, the patient follows with Neurology for her previous CVA and progressive weakness. They last saw the patient on 05/22 in clinic and obtained further workup of her progressive symptoms. The majority of the workup is still in process, however, she has been found to be Lyme IgG and IgM AB positive. At the time of the exam the patient was lying in bed in no acute distress, her family already left the ED at the time of my arrival. Per the last Neurology note, the patient has very slurred speech at baseline. I was able to obtain some history from her. She states that she feels very weak and has been having low back pain. She denies any other complaints at this time and was unable to provide more information. I was able to call and speak with her children, her Son is her POA. They state that the patient has had a steady clinical decline over the past two weeks. She was previously able to ambulate with the assistance of a rolling walker and only required minimal help with her ADL's. Over the past two weeks she has become so weak that she has been unable to walk over the past 3 days without significant assistance and was unable to eat or take oral medications today. They deny the patient having recent fevers or trauma. They believe that they need to place the patient in a [facility]iary facility as they are unable to provide the increased level of care she requires. We discussed code status, at this time they would want the patient to be a DNR/DNI as her quality of life would be very poor if she were to go through CPR and/or intubation. Please refer to Dr. Cross's attestation for any changes to the treatment plan Principal Diagnosis Lyme meningitis Intraventricular cerebral hemorrhage Waxing waning mental status with some days of obtundation preventing oral intake of nutrition and hydration Transition to comfort care measures Discharge Data Allergies Allergy/AdvReac Type Severity Reaction Status Date / Time Penicillins Allergy Severe RASH,SWELLI Verified 05/22/23 12:58 NG Consultations 05/24/23 19:24 Consult Neurology Routine 06/04/23 10:22 Consult Palliative Care Routine Ordered Studies 05/25/23 10:41 IR lumbar puncture diagnostic Urgent 05/31/23 17:58 CT head/brain wo con Routine 06/02/23 07:48 CT head/brain wo con Routine 06/03/23 08:00 CT angio head w con Routine 06/06/23 12:56 CT head/brain wo con Routine 06/08/23 09:00 FL video swallow Routine Hospital Course (1) Dyspnea and respiratory abnormalities: prn meds as ordered for resp changes apneas of 25 sec noted 821 however on 822 the patient was able to open her eyes to command (2) Altered mental status: d/t hemorragi stroke, pt on comfort measures (3) Encounter for end of life care: Will ask cardiology to deactivate pacer at EOL: Pacemaker Deactivation is indicated in patients with irreversible cognitive failure, where continued pacemaker activity is not meeting the goals of care, i.e., EOL comfort care. Cardiology took off the defibrillation will be kept the patient on paced mode at this time (4) Generalized weakness: (5) Intraventricular hemorrhage: (6) Hemorrhagic stroke: (7) Palliative care by specialist: Plan * comfort care underway patient transferred to [facility] facility on comfort care measures * Total Time Total Time Spent Total Time Spent (In Minutes): It required greater than 30 minutes to prepare this patient for discharge Discharge Plan Discharge Items Patient Disposition: Hospice - Medical Facility Reason For Visit: GENERALIZED WEAKNESS, BACK PAIN Discharge Diagnosis: lyme meningitis cerebral hemorrhage encephalopathy Hospice care Activity: As commented below Activity Comment: position for comfort Non-emergency contact: Primary Care Provider Call non-emergency contact if: your pain is worsening Follow-up/Referrals: Chaz Borges III, CRNP [Primary Care Provider] - Diet: Other - See Diet Comment Diet Comment: offer food and drink if able Addtl Attending Provider Instructions: patient was transitioned to comfort care measures on 14 June. She has been mostly obtunded throughout the stay seemingly comfortable. Her defibrillator has been turned to pacemaker mode Pending Studies at Discharge: No Stand-Alone Forms: My [facility] Skilled Items Patient informed of condition?: Yes DNR: Yes Discharge Level of Care: Other Communicable Disease: No Discharge Prognosis: Deteriorating Lines: None Urinary Catheter: Yes Medications and DC Order Prescriptions: New morphine concentrate 100 mg/5 mL (20 mg/mL) Solution 10 mg PO Q2H PRN (Reason: hospice pain) Qty: 30 0RF Discontinued (DME) Wheeled Walker Misc See Rx Instructions .Route Qty: 1 0RF Rx Instructions: rollator walker with seat & hand brakes on it isosorbide mononitrate 30 mg tablet extended release 24 hr 30 mg PO DAILY Qty: 90 1RF (DME) lancets [OneTouch Delica Plus Lancet] 30 gauge misc See Rx Instructions .MEDSUPPLY Qty: 100 5RF Rx Instructions: Test blood glucose three times daily (DME) blood sugar diagnostic Strip See Rx Instructions .MEDSUPPLY Qty: 100 5RF Rx Instructions: Test blood glucose three times daily (DME) blood-glucose meter [OneTouch Ultra2 Meter] Misc See Rx Instructions .MEDSUPPLY Qty: 1 0RF Rx Instructions: Use to test blood glucose three times daily metformin 500 mg tablet 500 mg PO BID Qty: 180 1RF Rx Instructions: for blood sugars valsartan 40 mg tablet 40 mg PO BID Qty: 180 3RF (DME) pen needle, diabetic [Comfort EZ Pen [place]] 31 gauge x 3/16" needle See Rx Instructions .ROUTE .MEDSUPPLY Qty: 200 3RF Rx Instructions: Use two daily to inject insulin quetiapine [Seroquel] 25 mg tablet 12.5 mg PO HS Qty: 45 1RF [place] SolKendallar U-300 Insulin 300 unit/mL (1.5 mL) insulin pen See Rx Instructions subcut PM Qty: 9 1RF Rx Instructions: 10 Units in the AM and 20 Units in the PM subcutaneously evening; (DME) FreeStyle Lilli 14 Day Sensor Kit See Rx Instructions .MEDSUPPLY Qty: 2 6RF Rx Instructions: Use to test blood glucose 3 times daily (DME) FreeStyle Lilli 14 Day [place] Misc See Rx Instructions .MEDSUPPLY Qty: 2 6RF Rx Instructions: Use to test blood glucose 3 times daily atorvastatin 20 mg tablet 20 mg PO HS Qty: 90 3RF aspirin 81 mg Tablet,Delayed Release (Dr/Ec) 81 mg PO QAM Qty: 30 0RF cyanocobalamin (vitamin B-12) 1,000 mcg capsule 1,000 mcg PO DAILY Qty: 30 0RF Rx Instructions: [id number] levothyroxine 50 mcg tablet 50 mcg PO DAILYBB metoprolol succinate 100 mg tablet extended release 24 hr 100 mg PO QAM sitagliptin phosphate 50 mg tablet 50 mg PO QAM potassium chloride 20 mEq tablet extended release 20 meq PO AMHS Xarelto 15 mg tablet 15 mg PO QPM acetaminophen [Tylenol] 325 mg Tablet 325 mg PO Q6 PRN (Reason: Pain) furosemide 40 mg Tablet 40 mg PO BID Rx Instructions: unknown compliance with this med per daughter Discharge Orders: Discharge Order (Routine); Ordered 06/19/23 Ordered By: Kamran Vargas Admission Data Admit Date/Time: 05/25/23 18:22 Attending Provider: Kamran Vargas Admit Provider: Ziyad Cross Primary Care Provider: Chaz Borges III Other Providers: Elgin Sotelo ; Abbie Perez ; [facility], ; [place] ; [facility] Coding Level of Care Code 07677 INP/OBS DISCH >30 MIN Diagnoses Dyspnea and respiratory abnormalities R06.00; R06.89 Altered mental status R41.82 Encounter for end of life care Z51.5 Generalized weakness R53.1 Intraventricular hemorrhage I61.5 Hemorrhagic stroke I61.9 Palliative care by specialist Z51.5
== END 2023-06-19 13:13 | disposition hospice, inpatient (51) | DRG 867 ==
LOC: EDINP 13:49 → ED 13:49 → SUATTDRO 18:26 → EDINP 05-25 12:18 → 1E 05-25 12:19 → 2E 05-25 16:56 → SUATTDRO 05-25 18:22 → 3N 06-05 16:06 → 3W 06-05 19:51